=== PATIENT | female | born 1935 | race Caucasian/White ===

== ENCOUNTER 2017-12-20 07:47 | Observation (INO) | payer OTHER ==
--- OUTSIDE RECORDS SUMMARY | 2017-12-20 07:50 | XMS REPORT | Clinical Summary ---
:1935 Author Organization [facility] Address [address] [place] [address] Care Team Providers Name Role Phone Rhett Blackwell MD Primary Care Provider Unavailable Allergies Active Allergy Reactions Severity Noted Date Comments Nitrofurantoin Macrocrystal 02/21/2016 lawrence Current Medications Prescription Sig. Disp. Refills Start Date End Date Status solifenacin Take 1 tablet 90 tablet 0 06/23/2016 Active (VESICARE) 10 MG (10 mg total) tabletIndications: by mouth Overflow incontinence daily. ergocalciferol Take 1 12 capsule 3 03/24/2017 Active (VITAMIN D2) 50,000 capsule unit (50,000 Units capsuleIndications: total) by Vitamin D deficiency mouth once a week. levothyroxine Take 1 tablet 90 tablet 1 03/24/2017 Active (SYNTHROID, LEVOXYL) (100 mcg 100 mcg tablet total) by mouth every morning. loratadine (CLARITIN) Take 1 tablet 90 tablet 1 03/24/2017 Active 10 mg (10 mg total) tabletIndications: by mouth Environmental daily. allergies meloxicam (MOBIC) 15 Take 1 tablet 90 tablet 0 03/24/2017 Active mg tabletIndications: (15 mg total) Arthritis of spine by mouth daily. telmisartan Take 1 tablet 90 tablet 1 03/24/2017 Active (MICARDIS) 80 MG (80 mg total) tabletIndications: by mouth Essential daily. hypertension levoFLOXacin Take 500 mg 0 04/28/2017 Active (LEVAQUIN) 500 MG by mouth tablet daily. minoxidil (LONITEN) Take 2.5 mg Active 2.5 MG tablet by mouth 2 (two) times a day. clopidogrel (PLAVIX) Take 1 tablet 90 tablet 0 10/07/2017 Active 75 mg tablet (75 mg total) by mouth daily. gabapentin Take 1 270 capsule 1 10/27/2017 Active (NEURONTIN) 100 mg capsule (100 capsuleIndications: mg total) by Neuropathy mouth 3 (three) times a day. metoprolol succinate Take 1 tablet 180 tablet 1 10/27/2017 10/28/19 Active XL (TOPROL XL) 50 mg (50 mg total) 19 24 hr tablet by mouth 2 (two) times a day. atorvastatin Take 1 tablet 90 tablet 1 11/11/2017 Active (LIPITOR) 40 MG (40 mg total) tabletIndications: by mouth Hyperlipidemia, daily. unspecified hyperlipidemia type gabapentin Take 1 270 capsule 1 04/16/2016 03/24/20 Discontinued (NEURONTIN) 100 mg capsule (100 17 capsuleIndications: mg total) by Neuropathy mouth 3 (three) times a day. atorvastatin Take 1 tablet 90 tablet 0 06/23/2016 12/23/19 Discontinued (LIPITOR) 40 MG (40 mg total) 17 tablet by mouth daily. ergocalciferol Take 1 12 capsule 0 06/23/2016 12/23/19 Discontinued (VITAMIN D2) 50,000 capsule 17 unit capsule (50,000 Units total) by mouth once a week. levothyroxine Take 1 tablet 90 tablet 1 08/12/2016 03/24/20 Discontinued (SYNTHROID, LEVOXYL) (100 mcg 17 100 mcg total) by tabletIndications: mouth every Hypothyroidism, morning. unspecified omeprazole (PriLOSEC) Take 1 90 capsule 0 11/04/2016 02/03/20 40 MG capsule (40 17 capsuleIndications: mg total) by Gastroesophageal mouth daily reflux disease for 90 days. without esophagitis furosemide (LASIX) 20 Take 1 tablet 90 tablet 0 11/04/2016 02/03/20 mg tabletIndications: (20 mg total) 17 Bilateral swelling of by mouth feet daily as needed (swelling) for up to 90 days. traZODone (DESYREL) Take 1 tablet 90 tablet 0 11/20/2016 02/05/20 Discontinued 100 MG (100 mg 17 tabletIndications: total) by Anxiety associated mouth nightly with depression, for 90 days. Insomnia, unspecified clopidogrel (PLAVIX) Take 1 tablet 90 tablet 0 11/20/2016 02/19/20 75 mg (75 mg total) 17 tabletIndications: by mouth History of CVA with daily for 90 residual deficit days. loratadine (CLARITIN) Take 1 tablet 90 tablet 0 11/20/2016 02/05/20 Discontinued 10 mg (10 mg total) 17 tabletIndications: by mouth Environmental daily. allergies metoprolol succinate Take 1 tablet 90 tablet 0 11/20/2016 12/23/19 Discontinued XL (TOPROL-XL) 50 mg (50 mg total) 17 24 hr by mouth tabletIndications: daily for 90 Essential days. hypertension sertraline (ZOLOFT) Take 1.5 135 tablet 0 11/20/2016 03/24/20 Discontinued 100 MG tablets (150 17 tabletIndications: mg total) by Anxiety associated mouth daily with depression for 90 days. telmisartan Take 1 tablet 90 tablet 1 11/27/2016 03/24/20 Discontinued (MICARDIS) 80 MG (80 mg total) 17 tabletIndications: by mouth Essential daily. hypertension meloxicam (MOBIC) 15 Take 15 mg by 12/23/19 Discontinued mg tablet mouth daily. 17 atorvastatin Take 1 tablet 90 tablet 0 12/22/2016 03/24/20 Discontinued (LIPITOR) 40 MG (40 mg total) 17 tabletIndications: by mouth Hyperlipidemia, daily. unspecified hyperlipidemia type meloxicam (MOBIC) 15 Take 1 tablet 90 tablet 0 12/22/2016 03/24/20 Discontinued mg tabletIndications: (15 mg total) 17 Arthritis of spine by mouth daily. metoprolol succinate Take 1 tablet 180 tablet 0 12/22/2016 03/22/20 XL (TOPROL-XL) 50 mg (50 mg total) 17 24 hr by mouth 2 tabletIndications: (two) times a Essential day for 90 hypertension days. ergocalciferol Take 1 12 capsule 3 12/22/2016 03/24/20 Discontinued (VITAMIN D2) 50,000 capsule 17 unit (50,000 Units capsuleIndications: total) by Vitamin D deficiency mouth once a week. loratadine (CLARITIN) Take 1 tablet 90 tablet 0 02/04/2017 03/24/20 Discontinued 10 mg (10 mg total) 17 tabletIndications: by mouth Environmental daily. allergies traZODone (DESYREL) Take 1 tablet 90 tablet 0 02/04/2017 03/24/20 Discontinued 100 MG (100 mg 17 tabletIndications: total) by Anxiety associated mouth nightly with depression for 90 days. omeprazole (PriLOSEC) Take 1 90 capsule 1 02/22/2017 03/24/20 Discontinued 40 MG capsule (40 17 capsuleIndications: mg total) by Gastroesophageal mouth daily reflux disease for 90 days. without esophagitis atorvastatin Take 1 tablet 90 tablet 1 03/24/2017 11/12/19 Discontinued (LIPITOR) 40 MG (40 mg total) 18 tabletIndications: by mouth Hyperlipidemia, daily. unspecified hyperlipidemia type gabapentin Take 1 270 capsule 1 03/24/2017 10/28/19 Discontinued (NEURONTIN) 100 mg capsule (100 18 capsuleIndications: mg total) by Neuropathy mouth 3 (three) times a day. omeprazole (PriLOSEC) Take 1 90 capsule 1 03/24/2017 06/23/19 40 MG capsule (40 18 capsuleIndications: mg total) by Gastroesophageal mouth daily reflux disease for 90 days. without esophagitis traZODone (DESYREL) Take 1 tablet 90 tablet 1 03/24/2017 06/23/19 100 MG (100 mg 18 tabletIndications: total) by Hypothyroidism, mouth nightly unspecified type for 90 days. sertraline (ZOLOFT) Take 1.5 135 tablet 1 03/24/2017 06/23/19 100 MG tablets (150 18 tabletIndications: mg total) by Anxiety associated mouth daily with depression for 90 days. metoprolol succinate Take 1 tablet 180 tablet 1 04/28/2017 07/28/19 XL (TOPROL-XL) 50 mg (50 mg total) 18 24 hr tablet by mouth 2 (two) times a day for 90 days. clopidogrel (PLAVIX) Take 75 mg by 10/08/19 Discontinued 75 mg tablet mouth daily. 18 acetaminophen-codeine Take 1-2 40 tablet 0 05/19/2017 05/21/19 Discontinued (TYLENOL WITH CODEINE tablets by 18 #3) 300-30 mg per mouth every 4 tablet (four) hours as needed for moderate pain for up to 30 days. Take with food acetaminophen-codeine Take 1-2 40 tablet 0 05/21/2017 06/01/19 Discontinued (TYLENOL WITH CODEINE tablets by 18 #3) 300-30 mg per mouth every 4 tablet (four) hours as needed for moderate pain for up to 30 days. Take with food Active Problems Problem Noted Date Physical deconditioning 11/25/2017 Right shoulder pain 06/15/2017 Urinary incontinence 02/04/2017 History of ischemic left MCA stroke 01/13/2017 Sensory ataxia 10/13/2016 Sialorrhea 09/22/2016 DJD (degenerative joint disease), multiple sites 08/12/2016 Lactose intolerance 04/16/2016 Memory problem 04/15/2016 Gout, arthropathy 04/15/2016 EKG abnormalities 04/15/2016 Overview: 10/29 SR, Left axis dev w Left ant. Fasc. Block 02/02 ECHO : mild changes, otherwise wnl Essential hypertension 02/21/2016 HLD (hyperlipidemia) 02/21/2016 Gastroesophageal reflux disease without esophagitis 02/21/2016 Neuropathy 02/21/2016 Vitamin D deficiency 02/21/2016 Hypothyroidism 02/21/2016 Atopic rhinitis 02/21/2016 Anxiety associated with depression 02/21/2016 Insomnia 02/21/2016 Overflow incontinence 02/21/2016 Rectal incontinence 02/21/2016 History of CVA with residual deficit 02/21/2016 CTS (carpal tunnel syndrome) 02/21/2016 Gait instability 02/21/2016 Arthritis of spine 02/21/2016 Overview: S/p back surgery FU w ortho spine Resolved Problems Problem Noted Date Resolved Date Dislocation of proximal interphalangeal joint of left little 04/06/201711/25 finger Closed nondisplaced fracture of phalanx of left little 04/06/2017 11/25/2017 finger Transient cerebral ischemia 01/13/2017 11/25/2017 Encounters Date Type Specialty Care Team Description 11/25/2017 Office Visit Family Medicine [place] Physical deconditioning ( Primary Dx); MD Rhett History of CVA with residual deficit; Gait instability; Sensory ataxia; Neuropathy; Osteoarthritis of multiple joints, unspecified osteoarthritis type; Essential hypertension; Hypothyroidism, unspecified type; Hyperlipidemia, unspecified hyperlipidemia type; Anxiety associated with depression; Insomnia, unspecified type 11/11/2017 Refill Internal Medicine [place] HyperlipidemiaRhett MD unspecified hyperlipidemia type 10/27/2017 Refill Family Medicine Dinora Rangel 10/25/2017 Office Visit Family J Luis Blackwell Essential hypertension ( Primary Dx); MD Rhett History of ischemic left MCA stroke; History of CVA with residual deficit; Gait instability; Memory problem; Hypothyroidism, unspecified type; Osteoarthritis of multiple joints, unspecified osteoarthritis type; Anxiety associated with depression; Insomnia, unspecified type; Hematoma of left flank, initial encounter; Traumatic hematoma of left elbow, initial encounter 10/07/2017 Refill Family Medicine Rhett Blackwell MD 10/06/2017 Telephone Family Medicine Tim Lundy LVN 07/28/2017 Telephone Family Medicine Rhett Blackwell MD 07/06/2017 Office Visit Layla Mix nondisplaced Landen Cruz MD fracture of phalanx of left little finger with routine healing, unspecified phalanx, subsequent encounter (Primary Dx) 06/22/2017 Lab Lab [place], Preop examination; MD Rhett Abnormal finding in urine ; Sequelae of protein-calorie malnutrition ; Essential hypertension; Hyperlipidemia, unspecified hyperlipidemia type; Hypothyroidism, unspecified type 06/22/2017 Office Visit Family J Luis Blackwell, Essential hypertension ( Primary Dx); MD Rhett History of ischemic left MCA stroke; Hypothyroidism, unspecified type; Neuropathy; Hyperlipidemia, unspecified hyperlipidemia type; Arthritis of spine; Preop examination; Anxiety associated with depression; Insomnia, unspecified type; Memory problem; Abnormal finding in urine ; Sequelae of protein-calorie malnutrition 06/15/2017 Office Visit Layla Mix Closed nondisplaced fracture of phalanx of left little finger, unspecified phalanx, initial encounter ( Primary Dx); Landen Cruz MD Acute pain of right shoulder; Dislocation of proximal interphalangeal joint of left little finger, subsequent encounter; Aftercare following surgery 06/01/2017 Office Visit Layla Mix Aftercare following surgery ( Primary Dx); Landen Cruz MD Closed nondisplaced fracture of phalanx of left little finger, unspecified phalanx, initial encounter; Dislocation of proximal interphalangeal joint of left little finger, subsequent encounter 05/25/2017 Telephone Landen Appiah MA 05/21/2017 Hospital Encounter Layla Mix MD 05/21/2017 Orders Only Orthopedic Landen Cadena MA 05/21/2017 Procedure Pass Orthopedic Surgery 05/21/2017 Surgery Layla Mix ORIF SMALL FINGER Surgery MD Nancy 05/19/2017 Pre-Admit Testing Pre-Admission Layla Parada Preop testing ( Primary Appointment Testing EMD Irwin Dx) 05/19/2017 Anesthesia Event Orthopedic Karmen, Surgery Jamila, GRAPE PICKER 05/19/2017 Orders Only Orthopedic Tammi, Surgery Rebeca, MIREYA 05/18/2017 Office Visit Orthopedic [place], Dislocation of proximal interphalangeal joint of left little finger, initial encounter (Primary Dx); Surgery MD Rhett Closed nondisplaced fracture of phalanx of left little finger, unspecified phalanx, initial encounter Layla Parada MD 05/06/2017 Orders Only Family Medicine [place], Closed nondisplaced MD Rhett fracture of phalanx of left little finger, unspecified phalanx, initial encounter (Primary Dx) 05/05/2017 Telephone Family Rhett Medina MD 05/04/2017 Office Visit Family Medicine [place], Transient cerebral ischemia, unspecified type (Primary Dx); MD Rhett History of ischemic left MCA stroke; Essential hypertension; Urinary tract infection without hematuria, site unspecified; Injury of finger of left hand, initial encounter 04/28/2017 Refill Family Medicine Tila Gaytan LVN 04/23/2017 Telephone Family Rhett Medina MD 04/22/2017 Telephone Family Medicine Rhett Blackwell MD 04/14/2017 Documentation Neurology Vaishali Astudillo No Show Dionicio Castellanos DO 03/24/2017 Office Visit Family J Luis Blackwell, Essential hypertension ( Primary Dx); MD Rhett Hyperlipidemia, unspecified hyperlipidemia type; Hypothyroidism, unspecified type; History of ischemic left MCA stroke; History of CVA with residual deficit; Gait instability; Osteoarthritis of multiple joints, unspecified osteoarthritis type; Arthritis of spine; Neuropathy; Gastroesophageal reflux disease without esophagitis; Anxiety associated with depression; Insomnia, unspecified type 03/16/2017 Telephone Internal Medicine Sydnee Corley, RN 02/25/2017 Procedure visit Neurology Vaishali Astudillo Idiopathic peripheral neuropathy (Primary Dx); Dionicio Castellanos DO Spinal stenosis of lumbar region without neurogenic claudication; Graham, Phi, Weakness of both lower extremities 02/22/2017 Telephone Family Medicine [place] Gastroesophageal reflux MD Rhett disease without esophagitis (Primary Dx) 02/08/2017 Orders Only Family Medicine Provider, Oseas, MD 02/04/2017 Office Visit Neurology Vaishali Astudillo Weakness of both lower extremities (Primary Dx); Sin Jasmin, DO Gait instability; Transient cerebral ischemia, unspecified type; History of ischemic left MCA stroke; Essential hypertension; Sensory ataxia; Urinary incontinence, unspecified type 02/04/2017 Refill [facility] Medicine [place], Environmental allergies; MD Rhett Anxiety associated with depression 02/03/2017 Telephone Neurology BaudilioVaishali linda Sin Jasmin, DO 02/02/2017 Telephone Neurology Baudilio, Vaishali Sin Jasmin, DO 01/20/2017 Telephone [facility] Medicine Rhett Blackwell MD 01/19/2017 Telephone Neurology Baudilio, Vaishali Sin Jasmin, DO 01/18/2017 Ancillary Orders Neurology Vaishali Astudillo Transient cerebral Sin Jasmin, DO ischemia, unspecified type 01/14/2017 Telephone [facility] Medicine Rhett Blackwell MD 01/13/2017 Office Visit Neurology Vaishali Astudillo Transient cerebral ischemia , unspecified type (Primary Dx); Sin Jasmin, DO Weakness of both lower extremities; Urinary incontinence, unspecified type; Sensory ataxia; Hyperlipidemia, unspecified hyperlipidemia type; Essential hypertension; History of ischemic left MCA stroke 01/13/2017 Procedure Pass Radiology 01/13/2017 Procedure Pass Radiology 12/23/2016 Telephone [facility] Rhett Medina MD 12/22/2016 Office Visit [facility] J Luis Blackwell, Essential hypertension ( Primary Dx); MD Rhett History of CVA with residual deficit; Hyperlipidemia, unspecified hyperlipidemia type; Sensory ataxia; Neuropathy; Arthritis of spine; Hypothyroidism, unspecified; Vitamin D deficiency; Anxiety associated with depression; Insomnia, unspecified after 12/19/2016 Immunizations Name Dates Previously Given Next Due FLUZONE HIGH-DOSE PF 03/24/2017, 02/21/2016 Pneumococcal Conjugate 13-Valent 08/06/2016 Pneumococcal, Unspecified 08/21/2004 Family History Medical History Relation Name Comments Aneurysm Brother COPD Brother Heart disease Father Hypertension Mother Stroke Mother Relation Name Status Comments Brother Father Mother Sister Alive x2 carotid blockage Social History Tobacco Use Types Packs/Day Years Used Date Former Smoker Cigarettes 0.5 25 Quit: 1991 Smokeless Tobacco: Never Used Comments: 1991 quit smoking Alcohol Use Drinks/Week oz/Week Comments Yes rare Sex Assigned at Date Recorded Not on file Last Filed Vital Signs Vital Sign Reading Time Taken Blood Pressure 196/65 11/25/2017 1:07 PM CDT Pulse 50 11/25/2017 1:07 PM CDT Temperature 36.9 C (98.5 F) 11/25/2017 1:07 PM CDT Respiratory Rate 18 11/25/2017 1:07 PM CDT Oxygen Saturation 98% 11/25/2017 1:07 PM CDT Inhaled Oxygen Concentration - - Weight 68.5 kg (151 lb) 11/25/2017 1:07 PM CDT Height 172.7 cm (5' 8") 11/25/2017 1:07 PM CDT Body Mass Index 22.96 11/25/2017 1:07 PM CDT Plan of Treatment Date Type Specialty Care Team Description 01/24/2018 Office Visit Family Medicine Rhett Blackwell MD [address] [address] [place] [address] Health Maintenance Due Date Last Done Comments SHINGRIX VACCINE (#1) 06/25/1985 INFLUENZA VACCINE 11/17/2017 03/24/2017, 02/21/2016 PNEUMOCOCCAL POLYSACCHARIDE VACCINE AGE 65 Completed 08/21/2004 AND OVER PNEUMOCOCCAL-13 Completed 08/06/2016 DXA SCAN Excluded 01/21/2017 ZOSTER VACCINE Excluded Implants Implanted Type Area Crisis Intervention Specialist Device Expiration Model / Identifier Date Serial / Lot Wire K Dual Trcr Pt [id number] Ns - [id number] Temporary Left: MICRO AIRE 1600 [id number] / Implanted: Qty: 2 on 05/21/2017 by Layla Parada MD Fixation Pin Hand SURGICAL / or Wire INSTRUMENT Wire K Dual Trcr Pt [id number] Ns - [id number] Temporary Left: MICRO AIRE 1600 [id number] / Implanted: Qty: 2 on 05/21/2017 by Layla Parada MD Fixation Pin Hand SURGICAL / or Wire INSTRUMENT Procedures Procedure Name Priority Date/Time Associated Diagnosis Comments XR HAND 3+ VW LEFT Routine 07/06/2017 1:14 Closed nondisplaced Results for this PM CDT fracture of phalanx of procedure are in left little finger the results with routine healing, section. unspecified phalanx, subsequent encounter T4, FREE Routine 06/22/2017 2:01 Hypothyroidism, Results for this PM STEEL MELTER unspecified type procedure are in the results section. THYROID STIMULATING Routine 06/22/2017 2:01 Hypothyroidism, Results for this HORMONE PM STEEL MELTER unspecified type procedure are in the results section. MICROALBUMIN / Routine 06/22/2017 2:01 Essential hypertension Results for this CREATININE URINE PM STEEL MELTER procedure are in RATIO the results section. LIPID PANEL Routine 06/22/2017 2:01 Essential hypertension Results for this PM STEEL MELTER Hyperlipidemia, procedure are in unspecified the results hyperlipidemia type section. PROTHROMBIN TIME WITH Routine 06/22/2017 2:01 Sequelae of Results for this INR PM STEEL MELTER protein-calorie procedure are in malnutrition the results Preop examination section. URINALYSIS, AUTOMATED Routine 06/22/2017 2:01 Preop examination Results for this WITH MICROSCOPY PM STEEL MELTER procedure are in the results section. COMPREHENSIVE Routine 06/22/2017 2:01 Preop examination Results for this METABOLIC PANEL PM STEEL MELTER procedure are in the results section. CBC WITH PLATELET AND Routine 06/22/2017 2:01 Preop examination Results for this DIFFERENTIAL PM STEEL MELTER procedure are in the results section. URINE CULTURE Routine 06/22/2017 2:01 Abnormal finding in Results for this PM STEEL MELTER urine procedure are in Preop examination the results section. XR SHOULDER 2+ VW Routine 06/15/2017 2:34 Closed nondisplaced Results for this RIGHT PM STEEL MELTER fracture of phalanx of procedure are in left little finger, the results unspecified phalanx, section. initial encounter Acute pain of right shoulder XR HAND 3+ VW LEFT Routine 06/15/2017 2:34 Closed nondisplaced Results for this PM STEEL MELTER fracture of phalanx of procedure are in left little finger, the results unspecified phalanx, section. initial encounter Acute pain of right shoulder SC CLOSE RX PROX/MID Routine 06/15/2017 2:10 Acute pain of right Results for this FING SHFT FX PM STEEL MELTER shoulder procedure are in the results section. XR HAND 3+ VW LEFT Routine 06/01/2017 1:54 Closed nondisplaced Results for this PM STEEL MELTER fracture of phalanx of procedure are in left little finger, the results unspecified phalanx, section. initial encounter SC CLOSE RX PROX/MID Routine 06/01/2017 1:50 Closed nondisplaced Results for this FING SHFT FX PM STEEL MELTER fracture of phalanx of procedure are in left little finger, the results unspecified phalanx, section. initial encounter Aftercare following surgery Dislocation of proximal interphalangeal joint of left little finger, subsequent encounter SC APPLY FOREARM Routine 06/01/2017 1:50 Closed nondisplaced Results for this SPLINT,STATIC PM STEEL MELTER fracture of phalanx of procedure are in left little finger, the results unspecified phalanx, section. initial encounter Aftercare following surgery Dislocation of proximal interphalangeal joint of left little finger, subsequent encounter ORIF, FINGER 05/21/2017 9:30 Dislocation of AM STEEL MELTER proximal interphalangeal joint of left little finger, initial encounter ECG PRE/POST OP Routine 05/19/2017 1:53 Preop testing Results for this PM STEEL MELTER procedure are in the results section. XR HAND 3+ VW LEFT Routine 05/18/2017 2:12 Closed nondisplaced Results for this PM STEEL MELTER fracture of phalanx of procedure are in left little finger, the results unspecified phalanx, section. initial encounter XR HAND 3+ VW LEFT Routine 05/04/2017 12:36 Injury of finger of Results for this PM STEEL MELTER left hand, initial procedure are in encounter the results section. NOTIFY HOME HEALTH Routine 02/08/2017 12:00 AM CDT BONE DENSITY Routine 01/21/2017 1:20 Disorder of bone and Results for this PM CDT cartilage procedure are in the results section. US CAROTID DUPLEX Routine 01/21/2017 1:15 Transient cerebral Results for this BILATERAL PM CDT ischemia, unspecified procedure are in type the results section. MRI LUMBAR SPINE WO Routine 01/21/2017 12:47 Weakness of both lower Results for this CONTRAST PM CDT extremities procedure are in Urinary incontinence, the results unspecified type section. MRI THORACIC SPINE WO Routine 01/21/2017 12:47 Weakness of both lower Results for this CONTRAST PM CDT extremities procedure are in Urinary incontinence, the results unspecified type section. after 12/19/2016 Results XR Hand 3+ Vw Left (07/06/2017 1:14 PM)Only the most recent of5 resultswithin the time period is included. Narrative Performed At [facility], lateral, oblique x-rays of the left hand are done.These x-rays [facility] demonstrate severe arthritis of the left small finger proximal interphalangeal joint.There is minimal subluxation.There is moderate to advanced arthritis at the first carpometacarpal joint.There is also calcification noted at the TFCC.No internal fixation remains. Performing Organization Address City/[facility] Phone Number LEEANN HINTON [address] [place] [address] Microalbumin / creatinine urine ratio (06/22/2017 2:01 PM) Creatinine, urine, 106 20 - 320 mg/dL [facility] random [place] Microalbumin, urine 1.5 See Note: mg/dL [facility] Comment: [facility] Reference Range: Reference Range Not established Microalbumin/creatini 14 <30 mcg/mg creat [facility] ne ratio Comment: [facility] The ADA defines abnormalities in albumin excretion as follows: Category Result (mcg/mg creatinine) Normal<30 Microalbuminuria 30-299 Clinical albuminuria > KA=456 The ADA recommends that at least two of three specimens collected within a 3-6 month period be abnormal before considering a patient to be within a diagnostic category. Specimen Blood Resulting Agency Comment Performing Organization Information: Site ID: [id number] Name[facility] Address: [address] [place] [id number] Director: Yeny Huff MD Performing Organization Address City/[facility] Phone Number [email or web address] [address] [address] Urinalysis, automated with microscopy (06/22/2017 2:01 PM) Color, UA YELLOW YELLOW [facility] Appearance CLEAR CLEAR [facility] Specific gravity, urine 1.015 1.001 - 1.035 [facility] pH, urine 6.5 5.0 - 8.0 [facility] Glucose, urine NEGATIVE NEGATIVE [facility] Bilirubin, UA NEGATIVE NEGATIVE [facility] Ketones, UA NEGATIVE NEGATIVE [facility] Occult blood, urine NEGATIVE NEGATIVE [facility] Protein, UA NEGATIVE NEGATIVE [facility] Nitrite, UA NEGATIVE NEGATIVE [facility] Leukocyte esterase, UA TRACE (A) NEGATIVE [facility] WBC, UA 0-5 < OR=5 /HPF [facility] RBC, UA 0-2 < OR=2 /HPF [facility] Squamous epithelial cells, UA 0-5 < OR=5 /HPF [facility] Bacteria, UA NONE SEEN NONE SEEN /HPF [facility] Hyaline casts, UA NONE SEEN NONE SEEN /LPF [employer] [facility] Specimen Blood Resulting Agency Comment Performing Organization Information: Site ID: [id number] Name: [facility] Address: [address] [place] [phone] Director: Yeny Huff MD Performing Organization Address [facility] Phone Number [facility] [address] [address] Prothrombin time with INR (06/22/2017 2:01 PM) INR 1.0 [employer] [facility] Comment: Reference Range 0.9-1.1 Moderate-intensity Warfarin Therapy 2.0-3.0 Higher-intensity Warfarin Therapy 3.0-4.0 Prothrombin time 10.9 9.0 - 11.5 sec [employer] [facility] Comment: For more information on this test, go to: http://education.VISUAL NACERT/faq/NXO299 Specimen Blood Resulting Agency Comment Performing Organization Information: Site ID: [id number] Name: [facility] Address: [address] [place] [phone] Director: Yeny Huff MD Performing Organization Address [facility] Phone Number [facility] [address] [address] CBC with platelet and differential (06/22/2017 2:01 PM) WBC 6.0 3.8 - 10.8 Thousand/uL [employer] [facility] RBC 4.65 3.80 - 5.10 Million/uL [employer] [facility] HGB 12.3 11.7 - 15.5 g/dL [employer] [facility] HCT 37.9 35.0 - 45.0 % [employer] [facility] MCV 81.5 80.0 - 100.0 fL [employer] [facility] MCH 26.5 (L) 27.0 - 33.0 pg [employer] [facility] MCHC 32.5 32.0 - 36.0 g/dL [employer] [facility] RDW 13.3 11.0 - 15.0 % [employer] [facility] Platelet count 149 140 - 400 Thousand/uL [employer] [facility] MPV 11.0 7.5 - 12.5 fL [employer] [facility] Neutrophils, absolute 4,158 1,500 - 7,800 cells/uL [employer] [facility] Lymphocytes, absolute 1,332 850 - 3,900 cells/uL [employer] [facility] Monocytes, absolute 372 200 - 950 cells/uL [employer] [facility] Eosinophils, absolute 108 15 - 500 cells/uL [employer] [facility] Basophils, absolute 30 0 - 200 cells/uL [employer] [facility] Neutrophils 69.3 % [facility] Lymphocytes 22.2 % [facility] Monocytes 6.2 % [facility] Eosinophils 1.8 % [employer] [facility] Basophils + RC 0.5 % [employer] [facility] Specimen Blood Resulting Agency Comment Performing Organization Information: Site ID: [id number] Name: [facility] Address: [address] [place] [address] Director: Yeny Huff MD Performing Organization Address [facility] Hospitalcode [place] [address] Urine culture (06/22/2017 2:01 PM) Urine culture SEE NOTE [facility] Comment: CULTURE, URINE, ROUTINE MICRO NUMBER:[id number] TEST STATUS: FINAL SPECIMEN SOURCE: URINE SPECIMEN QUALITY:ADEQUATE RESULT:Three or more organisms present, each greater than 10,000 cu/mL. May represent normal heath contamination from external genitalia. No further testing is required. Specimen Blood Resulting Agency Comment Performing Organization Information: Site ID: [facility] Name: [facility] Address: [address] [place] [address] Director: Yeny Huff MD Performing Organization Address [facility] Hospital[facility] Phone Number [facility] [place] [address] Thyroid stimulating hormone (06/22/2017 2:01 PM) TSH 2.18 0.40 - 4.50 mIU/L [employer] [facility] Specimen Blood Resulting Agency Comment Performing Organization Information: Site ID: A Name: [facility] Address: [address] [place] [phone] Director: Yeny Huff MD Performing Organization Address [facility] Hospitalcode Phone Number [facility] [place] [address] T4, free (06/22/2017 2:01 PM) T4, free 1.4 0.8 - 1.8 ng/dL [employer] [facility] Specimen Blood Resulting Agency Comment Performing Organization Information: Site ID: [facility] Name: [facility] Address: [address] [place] [phone] Director: Yeny Huff MD Performing Organization Address City/[facility] Phone Number [employer] [place] [phone] Lipid panel (06/22/2017 2:01 PM) Cholesterol, total 156 <200 mg/dL [facility] HDL cholesterol 72 >50 mg/dL [facility] Triglycerides 247 (H) <150 mg/dL [facility] LDL cholesterol 53 mg/dL (calc) [facility] calculated Comment: [facility] Reference range: <100 Desirable range <100 mg/dL for patients with CHD or diabetes and <70 mg/dL for diabetic patients with known heart disease. LDL-C is now calculated using the [place] calculation, which is a validated novel method providing better accuracy than the Friedewald equation in the estimation of LDL-C. Tristen SS et al. SHANE. 2013;310(19): 0914-7707 (http://education.Picklify/faq/MJS758) Cholesterol/HDL ratio 2.2 <5.0 (calc) [facility] Non-HDL cholesterol 84 <130 mg/dL [facility] Comment: (calc) [facility] For patients with diabetes plus 1 major ASCVD risk factor, treating to a non-HDL-C goal of <100 mg/dL (LDL-C of <70 mg/dL) is considered a therapeutic option. Specimen Blood Resulting Agency Comment Performing Organization Information: Site ID: RGA Name: [facility] Address: [address] [place] [phone] Director: Yeny Huff MD Performing Organization Address City/State/Zipcode Phone Number [employer] [place] [phone] Comprehensive metabolic panel (06/22/2017 2:01 PM) Glucose 107 (H) 65 - 99 mg/dL [facility] Comment: [facility] Fasting reference interval For someone without known diabetes, a glucose value between 100 and 125 mg/dL is consistent with prediabetes and should be confirmed with a follow-up test. BUN, whole blood 19 7 - 25 mg/dL [facility] Creatinine 0.85 0.60 - 0.88 [employer] Comment: mg/dL [facility] For patients >49 years of age, the reference limit for Creatinine is approximately 13% higher for people identified as -Kittitian. EGFR Non-Afr. Kittitian 64 > OR=60 [facility] mL/min/1.73m2 [facility] EGFR 74 > OR=60 [facility] mL/min/1.73m2 [facility] BUN/creatinine ratio NOT APPLICABLE 6 - 22 (calc) [employer] [facility] Sodium 145 135 - 146 mmol/L [facility] Potassium 4.3 3.5 - 5.3 mmol/L [facility] Chloride 107 98 - 110 mmol/L [employer] [facility] CO2 32 (H) 20 - 31 mmol/L [facility] Calcium 9.6 8.6 - 10.4 mg/dL [facility] Protein 6.5 6.1 - 8.1 g/dL [employer] [facility] Albumin, S 4.3 3.6 - 5.1 g/dL [employer] [facility] Globulin, total 2.2 1.9 - 3.7 g/dL [employer] (calc) [facility] Albumin/globulin ratio 2.0 1.0 - 2.5 (calc) [employer] [facility] Total bilirubin 0.5 0.2 - 1.2 mg/dL [facility] [employer] [facility] Alkaline phosphatase 70 33 - 130 U/L [employer] [facility] AST 20 10 - 35 U/L [facility] ALT 15 6 - 29 U/L [employer] [facility] Specimen Blood Resulting Agency Comment Performing Organization Information: Site ID: RGA Name: [facility] Address: [address] [place] [phone] Director: Yeny Huff MD Performing Organization Address City/[facility] Phone Number 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 Performing Organization Address City/State/Zipcode Phone Number [facility] [address] [place] [address] ORTHOPEDIC INJURY TREATMENT (06/15/2017 2:10 PM) Narrative Performed At Layla Parada MD 06/15/20173:20 PM Orthopedic Injury Treatment Date/Time: 06/15/2017 3:04 PM Performed by: LAYLA PARADA Authorized by: LAYLA PARADA Consent given by: patient Site marked: site marked Timeout: Immediately prior to procedure a time out was called to verify the correct patient, procedure, equipment, residential direct support professional and site/side marked as required Injury Location details: left little finger Dislocation type: proximal interphalangeal finger dislocation Fracture type: middle phalanx fracture Pre-procedure assessment Distal perfusion: normal Distal sensation: normal Range of motion: reduced Procedure Manipulation performed? no manipulation performed Anesthetics: local anesthesia not used Immobilization: splint Splint/Brace type: static finger Supplies used: aluminum splint Post-procedure assessment Distal perfusion: normal Distal sensation: normal Range of motion: unchanged Patient tolerance: patient tolerated the procedure well with no immediate complications ORTHOPEDIC INJURY TREATMENT (06/01/2017 1:50 PM) Narrative Performed At Layla Parada MD 06/01/20172:15 PM Orthopedic Injury Treatment Date/Time: 06/01/2017 2:08 PM Performed by: LAYLA PARADA Authorized by: LAYLA PARADA Consent given by: patient Site marked: site marked Injury Location details: left little finger Dislocation type: proximal interphalangeal finger dislocation Fracture type: middle phalanx fracture Pre-procedure assessment Distal perfusion: normal Distal sensation: normal Range of motion: reduced Procedure Manipulation performed? no manipulation performed Anesthetics: local anesthesia not used Immobilization: splint Splint/Brace type: ulnar gutter Supplies used: cotton padding and Ortho-Glass Post-procedure assessment Distal perfusion: normal Distal sensation: normal Patient tolerance: patient tolerated the procedure well with no immediate complications ECG Pre/Post Op (05/19/2017 1:53 PM) Ventricular rate 47 [facility] Atrial rate 47 [facility] SC interval 156 [facility] QRSD interval 106 [facility] QT interval 500 [facility] QTC interval 442 [facility] P axis 1 82 [facility] QRS axis 1 -46 [facility] T wave axis 55 [facility] EKG impression Marked sinus bradycardia-Pulmonary disease [facility] MUSE pattern-Left anterior fascicular block-Abnormal ECG-No previous ECGs available- Performing Organization Address City/State/Zipcode Phone Number [facility] MUSE [address] [place] [address] [facility] (02/08/2017) Narrative Performed At Bone Density (01/21/2017 1:20 PM) Narrative Performed At Procedure: BONE DENSITY [facility] REFERRING PHYSICIAN: RHETT BLACKWELL HISTORY: M89.9 Disorder of boneunspecified, M94.9 Disorder of cartilageunspecified, osteopenia COMPARISON: None TECHNIQUE: Dual-energy x-ray absorptiometrywas performed of the right distal forearm and both hips. FINDINGS: Analysis of the right distal radial metadiaphysis demonstrates a T score -0.6, BMD 0.442 g/cm2 and Z score of 2.3. Analysis of the left femoral neck demonstrates a T score -0.5, BMD 0.962 g/cm2 and Z score of 1.6. Analysis of the right femoral neck demonstrates a T score -0.5, BMD 0.966g/cm2 and Z score of 1.6. IMPRESSION: Normal bone density exam. [id number] Procedure Note Interface, Radiology Results Incoming - 01/21/2017 2:15 PM CDT Procedure: BONE DENSITY REFERRING PHYSICIAN: RHETT BLACKWELL HISTORY: M89.9 Disorder of bone unspecified, M94.9 Disorder of cartilage unspecified, osteopenia COMPARISON: None TECHNIQUE: Dual-energy x-ray absorptiometry was performed of the right distal forearm and both hips. FINDINGS: Analysis of the right distal radial metadiaphysis demonstrates a T score -0.6, BMD 0.442 g/cm2 and Z score of 2.3. Analysis of the left femoral neck demonstrates a T score -0.5, BMD 0.962 g/cm2 and Z score of 1.6. Analysis of the right femoral neck demonstrates a T score -0.5, BMD 0.966g/cm2 and Z score of 1.6. IMPRESSION: Normal bone density exam. [id number] Performing Organization Address City/State/Zipcode Phone Number [facility] [address] [place] [address] Pv carotid duplex (01/21/2017 1:15 PM) Narrative Performed At Examination: US CAROTID DUPLEX BILATERAL [facility] CLINICAL HISTORY: G45.9 Transient cerebral ischemic attackunspecified, increased left arm weaknesstia TECHNIQUE: Examination includes full duplex Doppler scan (real-time B mode grayscale, Doppler spectral analysis, Doppler color flow imaging) of the common carotid, internal carotid, external carotid, and vertebral arteries. Velocity parameters are based upon studies using distal internal carotid artery diameter as a denominator for stenosis calculation. COMPARISON:None. FINDINGS: Right side: A focal area of moderate stenosis in the right VALENTINO approximates 50%.Mild plaque is present within the right carotid bulb and proximal ICA. Peak systolic velocities are as follows: ICA 161 cm/sec, CCA 72 cm/sec, IC:CC Ratio 2.2. Antegrade flow is demonstrated in the right vertebral artery. Left side:There is no hemodynamically significant extracranial carotid arterial stenosis on the left according to grayscale or color flow imaging.. Minimal plaque is present within the left carotid bulb and proximal ICA. Peak systolic velocities are as follows: ICA 112 cm/sec, CCA 100 cm/sec, IC:CC Ratio 1.1 . Antegrade flow is demonstrated in the left vertebral artery. IMPRESSION: Approximately 50% stenosis of the right proximal ICA by grayscale and color flow imaging is supported by mildly elevated velocities and ratio. Please see above. [facility]-[id number] Procedure Note Hm Interface, Radiology Results Incoming - 01/21/2017 1:36 PM CDT Examination: US CAROTID DUPLEX BILATERAL CLINICAL HISTORY: G45.9 Transient cerebral ischemic attack unspecified, increased left arm weakness tia TECHNIQUE: Examination includes full duplex Doppler scan (real-time B mode grayscale, Doppler spectral analysis, Doppler color flow imaging) of the common carotid, internal carotid, external carotid, and vertebral arteries. Velocity parameters are based upon studies using distal internal carotid artery diameter as a denominator for stenosis calculation. COMPARISON:None. FINDINGS: Right side: A focal area of moderate stenosis in the right VALENTINO approximates 50% . Mild plaque is present within the right carotid bulb and proximal ICA. Peak systolic velocities are as follows: ICA 161 cm/sec, CCA 72 cm/sec, IC:CC Ratio 2.2 . Antegrade flow is demonstrated in the right vertebral artery. Left side:There is no hemodynamically significant extracranial carotid arterial stenosis on the left according to grayscale or color flow imaging.. Minimal plaque is present within the left carotid bulb and proximal ICA. Peak systolic velocities are as follows: ICA 112 cm/sec, CCA 100 cm/sec, IC:CC Ratio 1.1 . Antegrade flow is demonstrated in the left vertebral artery. IMPRESSION: Approximately 50% stenosis of the right proximal ICA by grayscale and color flow imaging is supported by mildly elevated velocities and ratio. Please see above. [facility]-[id number] Performing Organization Address City/State/Zipcode Phone Number [facility] [address] [place] [address] MRI Lumbar Spine Wo Contrast (01/21/2017 12:47 PM) Narrative Performed At [facility] EXAM:MRI LUMBAR SPINE WO CONTRAST COMPARISON: None. CLINICAL HISTORY: R29.898 Other symptoms and signs involving the musculoskeletal system, R32 Unspecified urinary incontinence, weakness in legs and urinary incontinence TECHNIQUE: Multiplanar multisequence examination was performedWithout contrast. FINDINGS: Sagittal images demonstrate postoperative changes related to posterior element instrumentation and fusion from L3 to L5 with underlying laminectomy. The metal hardware results in significant image quality degradation. L5-S1: There is mild annular bulging and spondylosis without significant stenosis. L3-L5: There are postoperative changes. There is significant metallic image artifact. There is no gross central canal stenosis. There is a small fluid collection dorsal to the thecal sac at L5 without mass effect. L2-3: There is degenerative annular bulging and spondylosis with moderately severe multifactorial spinal canal stenosis. There is a broad-based extra foraminal bulge/protrusion with severe impingement on the right neuroforamen and the right L2 nerve root. L1-2: There is mild annular bulging and spondylosis without significant stenosis. L2-3: There is asymmetric annular bulging and spondylosis worse on the right. There is multifactorial moderately severe spinal canal stenosis due to disc bulging and facet hypertrophy. There is severe right foraminal stenosis with probable impingement on the emanating right L2 nerve root. L1-2: There is mild annular bulging and spondylosis with very IMPRESSION: Postoperative changes at L3-L5 with hardware that degrades the image quality. Degenerative annular bulging and spondylosis at L2-3 with moderate to severe multifocal central spinal canal stenosis and severe right foraminal stenosis with probable significant impingement on the right L2 nerve root. Mild sclerotic changes at L1-2 and L5-S1 without significant stenosis. No gross compression of the thecal sac from L3 to L5. The foramina cannot be evaluated because of the metal artifact. [facility]-[id number] Procedure Note Interface, Radiology Results Incoming - 01/21/2017 1:10 PM CDT EXAM: MRI LUMBAR SPINE WO CONTRAST COMPARISON: None. CLINICAL HISTORY: R29.898 Other symptoms and signs involving the musculoskeletal system, R32 Unspecified urinary incontinence, weakness in legs and urinary incontinence TECHNIQUE: Multiplanar multisequence examination was performed Without contrast. FINDINGS: Sagittal images demonstrate postoperative changes related to posterior element instrumentation and fusion from L3 to L5 with underlying laminectomy. The metal hardware results in significant image quality degradation. L5-S1: There is mild annular bulging and spondylosis without significant stenosis. L3-L5: There are postoperative changes. There is significant metallic image artifact. There is no gross central canal stenosis. There is a small fluid collection dorsal to the thecal sac at L5 without mass effect. L2-3: There is degenerative annular bulging and spondylosis with moderately severe multifactorial spinal canal stenosis. There is a broad-based extra foraminal bulge/protrusion with severe impingement on the right neuroforamen and the right L2 nerve root. L1-2: There is mild annular bulging and spondylosis without significant stenosis. L2-3: There is asymmetric annular bulging and spondylosis worse on the right. There is multifactorial moderately severe spinal canal stenosis due to disc bulging and facet hypertrophy. There is severe right foraminal stenosis with probable impingement on the emanating right L2 nerve root. L1-2: There is mild annular bulging and spondylosis with very IMPRESSION: Postoperative changes at L3-L5 with hardware that degrades the image quality. Degenerative annular bulging and spondylosis at L2-3 with moderate to severe multifocal central spinal canal stenosis and severe right foraminal stenosis with probable significant impingement on the right L2 nerve root. Mild sclerotic changes at L1-2 and L5-S1 without significant stenosis. No gross compression of the thecal sac from L3 to L5. The foramina cannot be evaluated because of the metal artifact. [facility]-[id number] Performing Organization Address City/State/Zipcode Phone Number [facility] [address] [place] [address] MRI Thoracic Spine Wo Contrast (01/21/2017 12:47 PM) Narrative Performed At [facility] EXAM:MRI THORACIC SPINE WO CONTRAST COMPARISON: None. CLINICAL HISTORY: R29.898 Other symptoms and signs involving the musculoskeletal system, R32 Unspecified urinary incontinence, brisk reflexes urinary incontinence TECHNIQUE: Multiplanar multisequence examination was performedWithout contrast. FINDINGS: There is mild diffuse degenerative annular bulges from T4-5 through T10-11. There is no significant central canal stenosis or cord compression. There is no abnormal cord signal. IMPRESSION: Mild thoracic degenerative disc disease with mild bulging at multiple levels without focal protrusion or cord compression. [facility]-[id number] Procedure Note Interface, Radiology Results Incoming - 01/21/2017 1:11 PM CDT EXAM: MRI THORACIC SPINE WO CONTRAST COMPARISON: None. CLINICAL HISTORY: R29.898 Other symptoms and signs involving the musculoskeletal system, R32 Unspecified urinary incontinence, brisk reflexes urinary incontinence TECHNIQUE: Multiplanar multisequence examination was performed Without contrast. FINDINGS: There is mild diffuse degenerative annular bulges from T4-5 through T10-11. There is no significant central canal stenosis or cord compression. There is no abnormal cord signal. IMPRESSION: Mild thoracic degenerative disc disease with mild bulging at multiple levels without focal protrusion or cord compression. [facility]-[id number] Performing Organization Address City/State/Zipcoks Phone Number [facility] [address] [place] [address] after 12/19/2016 Insurance Payer Benefit Plan / Group Subscriber ID Type Phone Address [employer] xxxxxxxxxxx MEDICARE MEDICARE PART A AND B xxxxxxxxxx Medicare [place], [place] [phone] [phone]
--- OUTSIDE RECORDS SUMMARY | 2017-12-20 07:51 | XMS REPORT | Continuity of Care Document ---
:1935 Author Organization Interface Problems Problem Status Onset Classification Date Comments Source Date Reported SPONDYLOLTHESIS Active 08/24/19 [facility] S Spondylolisthesis, 07/31/19 10/29/2017 [facility] lumbar region 18 [place] M43.16 Active 07/06/19 [facility] SPONDYLOLISTHESIS, 18 [place] [facility] Stroke<sup>1</sup> Resolved 04/19/19 Problem 10/29/2017 resulted [facility] 00 in left [place] sided Ortho and weakness Spine Bradycardia Active Problem 10/29/2017 [facility] [place] GERD (<span Active Problem 10/29/2017 [facility] ID="[id number]"> [facility], Confirmed</span>) Ortho and Spine Hypertension Active Problem 10/29/2017 [facility] [place] Hypothyroid Active Problem 10/29/2017 [facility] [place] Bowel incontinence Active Problem 10/29/2017 [facility] [place] Urinary frequency Active Problem 10/29/2017 [facility] [place] Osteoarthritis Active Problem 10/29/2017 [facility] [place] Recurrent UTI Active Problem 10/29/2017 [facility] HAS [facility] (<span A UTI 2-3x [place], ID="[id number]"> A YEAR Ortho and Confirmed</span>)< Spine sup>2</sup> TIA (<span Resolved Problem 10/29/2017 x2 [facility] ID="[id number]"> [place], Confirmed</span>)< Ortho and sup>3</sup> Spine Urinary urgency Active Problem 10/29/2017 [facility] [place] Bladder Active Problem 10/29/2017 wears [facility] incontinence<sup>4 diapers [place] </sup> Ortho and Spine SPONDYLOLISTHESIS, Active [facility] [place] Medications Medication Details Route Status Patient Ordering Order Source Instructions Provider Date gabapentin 300 MG 300 mg=1 cap, Active 09/17/ Oral Capsule PO, BID, # 90 2018 Ortho cap, 1 and Refill(s), Spine Pharmacy: [facility]/pharmacy #[id number] tizanidine 4 mg 4 mg=1 tab, PO, Active oral tablet Q8H, PRN for 2018 Ortho muscle spasms, # and 90 tab, 0 Spine Refill(s), Pharmacy: [facility]/pharmacy #[id number] Docusate Sodium 100 mg=1 cap, Active 100 MG Oral PO, BID, # 60 2018 Ortho Capsule [Colace] cap, 1 and Refill(s), Spine Pharmacy: [facility]/pharmacy #[id number] Sertraline 150 mg, 1.5 tab, Inactive Route: PO, Drug 2018 Ortho form: TAB, and Daily, Dosing Spine Weight 70.455, kg, Start date: 09/17/17 9:00:00 CDT, Duration: 30 day, Stop date: 10/16/17 9:00:00 CDTNotes: (Same as: Zoloft) Omeprazole 40 mg, 1 cap, Inactive Route: PO, Drug 2018 Ortho form: DRC, and Daily, Dosing Spine Weight 70.455, kg, Start date: 09/17/17 9:00:00 CDT, Duration: 30 day, Stop date: 10/16/17 9:00:00 CDTNotes: Take 1 hour before or 2 hours after meal; Non-Formulary Drug "Do Not Crush" (Same as: Prilosec) Minoxidil 2.5 mg Minoxidil 2.5 mg Inactive tablet tablet, 2.5 mg, 2018 Ortho 1 tab, Drug and form: MISC, Spine Route: PO, Daily, 09/17/17 9:00:00 CDT, Duration: 30 day, Stop date: 10/16/17 9:00:00 CDT Minoxidil 2.5 mg, Route: No Longer PO, Drug form: Active 2018 Ortho TAB, Daily, and Dosing Weight Spine 70.455, kg, Start date: 09/17/17 9:00:00 CDT, Duration: 30 day, Stop date: 10/16/17 9:00:00 CDT meloxicam 15 mg, 2 tab, Inactive Route: PO, Drug 2018 Ortho form: TAB, and Daily, Dosing Spine Weight 70.455, kg, Start date: 09/17/17 9:00:00 CDT, Duration: 30 day, Stop date: 10/16/17 9:00:00 CDTNotes: (Same as: Mobic) Loratadine 10 mg, 1 tab, Inactive Route: PO, Drug 2017 Ortho form: TAB, and Daily, Dosing Spine Weight 70.455, kg, Start date: 09/17/17 9:00:00 CDT, Duration: 30 day, Stop date: 10/16/17 9:00:00 CDTNotes: 1 hr before meals (Same as: Claritin) Non-formulary item Protonix 40 mg, 1 tab, Inactive Route: PO, Drug 2017 Ortho form: ECTAB, and Daily, Start Spine date: 09/17/17 9:00:00 CDT, Duration: 30 day, Stop date: 10/16/17 9:00:00 CDTNotes: Tablet should not be chewed or crushed. (Same as: Protonix) Thyroxine 100 microgram, 1 Inactive tab, Route: PO, 2017 Ortho Drug form: TAB, and Daily, Dosing Spine Weight 70.455, kg, Start date: 09/17/17 6:30:00 CDT, Duration: 30 day, Stop date: 10/16/17 6:30:00 CDTNotes: Take 1 hour before or 2 hours after meal; Enteral feeds may interefere with the absorption of this medication. (Same as:Levothroid, Synthroid) metoprolol 50 mg, 1 tab, No Longer tartrate Route: PO, Drug Active 2017 Ortho form: TAB, Q12H, and Dosing Weight Spine 70.455, kg, Start date: 09/16/17 21:00:00 CDT, Duration: 30 day, Stop date: 10/16/17 9:00:00 CDTNotes: (Same as: Lopressor) atorvastatin 40 mg, 2 tab, No Longer Route: PO, Drug Active 2017 Ortho form: TAB, and Bedtime, Dosing Spine Weight 70.455, kg, Start date: 09/16/17 21:00:00 CDT, Duration: 30 day, Stop date: 10/15/17 21:00:00 CDTNotes: (Same As: Lipitor) Trazodone 50 mg, 1 tab, No Longer Hydrochloride 100 Route: PO, Drug Active 2018 Ortho MG Oral Tablet form: TAB, and Bedtime, Dosing Spine Weight 70.455, kg, Start date: 09/16/17 21:00:00 CDT, Duration: 30 day, Stop date: 10/15/17 21:00:00 CDTNotes: (Same As: Desyrel) Docusate Sodium 100 mg, 1 cap, No Longer 100 MG Oral Route: PO, Drug Active 2017 Ortho Capsule form: CAP, BID, and Dosing Weight Spine 70.455, kg, Start date: 09/16/17 17:00:00 CDT, Duration: 30 day, Stop date: 10/16/17 9:00:00 CDTNotes: (Same as: Colace) (Do Not Crush) telmisartan 80 mg, 1 tab, No Longer Route: PO, Drug Active 2017 Ortho form: TAB, QPM, and Dosing Weight Spine 70.455, kg, Start date: 09/16/17 17:00:00 CDT, Duration: 30 day, Stop date: 10/15/17 17:00:00 CDTNotes: Non-Formulary Drug. (Same As: Micardis) Cefazolin 1 gm, Route: Inactive IVPB, Drug form: 2018 Ortho PDR/INJ, Q8H, and Dosing Weight Spine 70.455, kg, Start date: 09/16/17 16:00:00 CDT, Duration: 1 doses or times, Stop date: 09/16/17 16:00:00 CDT, ABX Indication: Surgical ProphylaxisNotes : (Same As: AncefKyazol) MEDICATION WASTE Product Size: 1000 mg Product Wasted: ___ mg gabapentin 100 MG 100 mg, 1 cap, No Longer Oral Capsule Route: PO, Drug Active 2017 Ortho form: CAP, TID, and Dosing Weight Spine 70.455, kg, Start date: 09/16/17 14:00:00 CDT, Duration: 30 day, Stop date: 10/16/17 8:00:00 CDTNotes: (Same as: Neurontin) Hydralazine 5 mg, Route: IV, Inactive ONCE, Dosing 2018 Ortho Weight 70.455, and kg, Start date: Spine 09/16/17 12:57:00 CDT, Stop date: 09/16/17 12:57:00 CDT fentaNYL (ANES) Route: IV, Drug Inactive form: INJ, ONCE, 2017 Ortho Stop date: and 09/16/17 Spine 12:02:00 CDT Ancef + Sodium 1 gm, Route: IV, Inactive Chloride 0.9% IV Drug form: 2018 Ortho 100 mL PDR/INJ, ONCE, and Dosing Weight Spine 70.455, kg, Start date: 09/16/17 12:00:00 CDT, Stop date: 09/16/17 12:00:00 CDT, ABX Indication: Surgical ProphylaxisNotes : (Same As: AncAndra skinner) MEDICATION WASTE Product Size: 1000 mg Product Wasted: ___ mg ondansetron Route: IV, Drug Inactive (ANES) form: INJ, ONCE, 2017 Ortho Stop date: and 09/16/17 Spine 11:44:00 CDT Acetaminophen 650 mg, 2 tab, No Longer Route: PO, Drug Active 2017 Ortho form: TAB, Q4H, and Dosing Weight Spine 70.455, kg, PRN Pain 1-3/Temp > 100.4 F, Start date: 09/16/17 11:34:00 CDT, Duration: 30 day, Stop date: 10/16/17 11:33:00 CDTNotes: Do not exceed 4 gm/day. (Same as: Tylenol) Lactated Ringers 1,000 mL, Rate: No Longer IV 1,000 mL 75 ml/hr, Infuse Active 2017 Ortho over: 13.3 hr, and Route: IV, Spine Dosing Weight 70.455 kg, Total Volume: 1,000, Start date: 09/16/17 11:34:00 CDT, Duration: 30 day, Stop date: 10/16/17 11:33:00 CDT, 1.85, m2 Acetaminophen 325 1 tab, Route: No Longer MG / Hydrocodone PO, Drug Form: Active 2018 Ortho Bitartrate 10 MG TAB, Dosing and Oral Tablet Weight 70.455, Spine kg, Q4H, PRN Pain Score 4-6, Start date: 09/16/17 11:34:00 CDT, Duration: 30 day, Stop date: 10/16/17 11:33:00 CDTNotes: Do not exceed 4gm/day of acetaminophen. (Same as: [place] 325/10) Aluminum 30 ml, Route: No Longer Hydroxide 40 PO, Drug Form: Active 2018 Ortho MG/ML / Magnesium SUSP, Dosing and Hydroxide 40 Weight 70.455, Spine MG/ML / kg, Q4H, PRN Simethicone 4 Indigestion, MG/ML Oral Start date: Suspension 09/16/17 11:34:00 CDT, Duration: 30 day, Stop date: 10/16/17 11:33:00 CDTNotes: (aluminum hydroxide-magnes ium hyd- simethicone [phone]/5ml 30 ml ud RILEY) Dulcolax Laxative 5 mg, 1 tab, No Longer Route: PO, Drug Active 2017 Ortho form: ECTAB, and Q24H, Dosing Spine Weight 70.455, kg, PRN Constipation, Start date: 09/16/17 11:34:00 CDT, Duration: 30 day, Stop date: 10/16/17 11:33:00 CDTNotes: (Same As: Dulcolax, Correctol) (Do Not Crush) "Do Not Crush" Morphine 2 mg, 0.2 mL, No Longer Route: IVP, Drug Active 2017 Ortho form: INJ, Q3H, and Dosing Weight Spine 70.455, kg, PRN Pain Score 6-10, Start date: 09/16/17 11:34:00 CDT, Stop date: 10/16/17 11:33:00 CDTNotes: (Same as:MORPhine Sulfate) Ondansetron 4 mg, 1 tab, No Longer Route: PO, Drug Active 2018 Ortho form: TABDIS, and Q6H, Dosing Spine Weight 70.455, kg, PRN Nausea & Vomiting, Start date: 09/16/17 11:34:00 CDT, Duration: 30 day, Stop date: 10/16/17 11:33:00 CDTNotes: (Same as: Zofran ODT) Diphenhydramine 25 mg, 1 cap, No Longer Route: PO, Drug Active 2017 Ortho form: CAP, and Bedtime, Dosing Spine Weight 70.455, kg, PRN Insomnia, Start date: 09/16/17 11:34:00 CDT, Duration: 30 day, Stop date: 10/16/17 11:33:00 CDTNotes: (Same as: Benadryl) Naloxone 0.04 mg, 0.1 mL, No Longer Route: IVP, Drug Active 2017 Ortho form: INJ, and Q2MIN, Dosing Spine Weight 70.455, kg, PRN Narcotic Reversal, Start date: 09/16/17 11:34:00 CDT, Duration: 30 day, Stop date: 10/16/17 11:33:00 CDTNotes: Same as Narcan Hydromorphone 15 mg, 30 mL, No Longer Route: IV, Active 2017 Ortho Initial Loading and Dose: 0.4mg, 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 Spine Dose: 0.2 mg, 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 Lockout: 10 minutes, Continuous Basal Rate: 0 mg, 4 Hour Limit (In MG): 6, Drug Form: INJ, Continuous, Start date: 09/16/17 11:34:00 CDT, Duration: 30 day, Stop date: 10/16/17...Notes : (Same as: Dilaudid) conc=0.5 mg/ml Hydromorphone 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 Dose: ;Delay: ;Basal: dexamethasone Route: IV, Drug Inactive (ANES) form: INJ, ONCE, 2017 Ortho Stop date: and 09/16/17 Spine 11:16:00 CDT phenylephrine Route: IV, Drug Inactive (ANES) form: INJ, ONCE, 2017 Ortho Stop date: and 09/16/17 Spine 10:46:00 CDT acetaminophen Route: IV, Drug Inactive (ANES) 10 mg form: INJ, Start 2017 Ortho date: 09/16/17 and 10:33:00 CDT, Spine Stop date: 09/16/17 11:33:00 CDT rocuronium (ANES) Route: IV, Drug Inactive 09/16/ MH form: INJ, ONCE, 2017 Ortho Stop date: and 09/16/17 Spine 10:26:00 CDT ePHEDrine (ANES) Route: IV, Drug Inactive 09/16/ MH form: INJ, ONCE, 2017 Ortho Stop date: and 09/16/17 Spine 10:21:00 CDT niCARdipine Route: IV, Drug Inactive 09/16/ MH (ANES) form: INJ, ONCE, 2017 Ortho Stop date: and 09/16/17 9:41:00 Spine CDT niCARdipine Route: IV, Drug Inactive 09/16/ MH (ANES) form: INJ, ONCE, 2017 Ortho Stop date: and 09/16/17 9:21:00 Spine CDT ePHEDrine (ANES) Route: IV, Drug Inactive MH form: INJ, ONCE, 2017 Ortho Stop date: and 09/16/17 9:12:00 Spine CDT rocuronium (ANES) Route: IV, Drug Inactive MH form: INJ, ONCE, 2017 Ortho Stop date: and 09/16/17 9:11:00 Spine CDT propofol (ANES) Route: IV, Drug Inactive MH form: INJ, ONCE, 2017 Ortho Stop date: and 09/16/17 9:11:00 Spine CDT succinylcholine Route: IV, Drug Inactive 09/16/ MH (ANES) form: INJ, ONCE, 2017 Ortho Stop date: and 09/16/17 9:11:00 Spine CDT fentaNYL (ANES) Route: IV, Drug Inactive MH form: INJ, ONCE, 2017 Ortho Stop date: and 09/16/17 9:11:00 Spine CDT lidocaine (ANES) Route: IV, Drug Inactive 09/16/ MH form: INJ, ONCE, 2017 Ortho Stop date: and 09/16/17 9:11:00 Spine CDT ceFAZolin (ANES) Route: IV, Drug Inactive 09/16/ MH form: INJ, ONCE, 2017 Ortho Stop date: and 09/16/17 9:06:00 Spine CDT phenylephrine Route: IV, Drug Inactive 05/31/ MH (ANES) form: INJ, ONCE, 2018 Ortho Stop date: and 09/16/17 8:55:00 Spine CDT Zofran ODT 4 mg, 1 tab, Inactive Route: PO, Drug 2017 Ortho form: TABDIS, and ONCE, PRN Nausea Spine & Vomiting, Start date: 09/16/17 8:25:00 CDTNotes: (Same as: Zofran ODT) propofol (ANES) Route: IV, Drug Inactive 10 mg form: INJ, Start 2017 Ortho date: 09/16/17 and 8:22:00 CDT, Spine Stop date: 09/16/17 9:22:00 CDT Dexamethasone 4 mg, 1 mL, Inactive Route: IVP, Drug 2017 Ortho form: INJ, ONCE, and Dosing Weight Spine 70.455, kg, PRN Nausea & Vomiting, Start date: 09/16/17 8:17:00 CDTNotes: Concentration: 4mg/ml Ondansetron 4 mg, 2 mL, Inactive Route: IVP, Drug 2017 Ortho form: INJ, ONCE, and Dosing Weight Spine 70.455, kg, PRN Nausea & Vomiting, Start date: 09/16/17 8:17:00 CDTNotes: (Same as: Zofran) MEDICATION WASTE Product Size: 4 mg Product Wasted: ___ mg Naloxone 0.4 mg, 1 mL, Inactive Route: IVP, Drug 2017 Ortho form: INJ, and Q2MIN, Dosing Spine Weight 70.455, kg, PRN Narcotic Reversal, Start date: 09/16/17 8:17:00 CDT, Duration: 8 doses or times, Stop date: Limited # of timesNotes: Same as Narcan Flumazenil 0.2 mg, 2 mL, Inactive Route: IVP, Drug 2017 Ortho form: INJ, PRN, and Dosing Weight Spine 70.455, kg, PRN Benzodiazepine Reversal, Initial dose, Start date: 09/16/17 8:17:00 CDT, Stop date: 09/16/17 17:00:00 CDTNotes: (Same as: Romazicon) Oxycodone 10 mg, 2 tab, Inactive Route: PO, Drug 2018 Ortho form: TAB, Q4H, and Dosing Weight Spine 70.455, kg, PRN Pain Score 7-10, Start date: 09/16/17 8:17:00 CDT, Stop date: 09/16/17 17:00:00 CDTNotes: (Same as: Roxicodone) Hydromorphone 0.5 mg, 0.25 mL, Inactive Route: IVP, Drug 2017 Ortho form: INJ, and Q5Min, Dosing Spine Weight 70.455, kg, PRN Pain Score 7-10, Start date: 09/16/17 8:17:00 CDT, Duration: 4 doses or times, Stop date: 09/16/17 17:00:00 CDTNotes: Same as Dilaudid Morphine 2 mg, 0.2 mL, Inactive Route: IVP, Drug 2017 Ortho form: INJ, and Q5Min, Dosing Spine Weight 70.455, kg, PRN Pain Score 4-6, Start date: 09/16/17 8:17:00 CDT, Duration: 5 doses or times, Stop date: 09/16/17 17:00:00 CDTNotes: (Same as:MORPhine Sulfate) Acetaminophen 1,000 mg, 2 tab, Inactive Route: PO, Drug 2017 Ortho form: TAB, ONCE, and Dosing Weight Spine 70.455, kg, PRN Pain Score 1-3, Start date: 09/16/17 8:17:00 CDTNotes: Max acetaminophen 4000 mg/day (4 gm/day). (Same as: Tylenol Extra Strength) Labetalol 10 mg, 2 mL, Inactive Route: IVP, Drug 2017 Ortho form: INJ, and Q5Min, Dosing Spine Weight 70.455, kg, PRN Elevated BP, Start date: 09/16/17 8:17:00 CDT, Duration: 5 doses or times, Stop date: 09/16/17 17:00:00 CDT Lactated Ringers Route: IV, Total Inactive Injection IV Volume: 1,000, 2018 Ortho (ANES) 1000 mL Start date: and 09/16/17 7:45:00 Spine CDT, Stop date: 09/16/17 8:45:00 CDT Cefazolin 2 gm, 100 mL, Inactive Route: IVPB, 2018 Ortho Drug form: INJ, and ONCE, Dosing Spine Weight 71.051, kg, Start date: 09/16/17 6:11:00 CDT, Stop date: 09/16/17 6:11:00 CDT, Surgical Prophylaxis Only; For patients Notes: Same as: Ancef Trazodone 50 mg=0.5 tab, Active Hydrochloride 100 PO, Bedtime, # 2018 Ortho MG Oral Tablet 30 tab, 1 and Refill(s) Spine telmisartan 80 mg 80 mg=1 tab, PO, Active oral tablet QPM, # 30 tab, 3 2018 Ortho Refill(s) and Spine solifenacin 10 mg 10 mg=1 tab, PO, Active oral tablet Daily, # 30 tab, 2018 Ortho 1 Refill(s) and Spine sertraline 100 mg 150 mg=1.5 tab, Active oral tablet PO, Daily, # 30 2018 Ortho tab, 0 Refill(s) and Spine omeprazole 40 mg 40 mg=1 cap, PO, Active oral delayed Daily, take DOS, 2018 Ortho release capsule # 30 cap, 0 and Refill(s) Spine minoxidil 2.5 mg 2.5 mg=1 tab, Active oral tablet PO, Daily, # 180 2018 Ortho tab, 3 Refill(s) and Spine metoprolol 50 mg 50 mg=1 tab, PO, Active oral tablet, BID, take DOS, # 2018 Ortho extended release 30 tab, 0 and Refill(s) Spine meloxicam 15 mg 15 mg=1 tab, PO, Active oral tablet Daily, # 30 tab, 2018 Ortho 0 Refill(s) and Spine levothyroxine 100 100 microgram=1 Active mcg (0.1 mg) oral tab, PO, Daily, 2018 Ortho tablet take DOS, # 60 and tab, 0 Refill(s) Spine Levofloxacin 500 500 mg=1 tab, Inactive MG Oral Tablet PO, Q24H, # 10 2018 Ortho [Levaquin] tab, 0 Refill(s) and Spine loratadine 10 mg 10 mg=1 tab, PO, Active oral tablet Daily, # 10 tab, 2018 Ortho 0 Refill(s) and Spine gabapentin 100 MG 100 mg=1 cap, Active Oral Capsule PO, TID, # 90 2018 Ortho cap, 1 Refill(s) and Spine Vitamin D2 50,000 50,000 Active intl units oral IntlUnit=1 cap, 2018 Ortho capsule PO, qWeek, # 24 and cap, 0 Refill(s) Spine clopidogrel 75 mg 75 mg=1 tab, PO, No Longer oral tablet Daily, # 30 tab, Active 2018 Ortho 0 Refill(s) and Spine atorvastatin 40 40 mg=1 tab, PO, Active mg oral tablet Bedtime, # 30 2018 Ortho tab, 0 Refill(s) and Spine Allergies, Adverse Reactions, Alerts Substance Category Reaction Severity Reaction Status Date Comments Source type Reported Macrodantin Assertion itching Drug Active allergy [place] Immunizations Immunization Date Given Site Status Last Updated Comments Source Results Order Name Results Value Reference Date Interpretation Comments Source Range CHEM PANEL Calcium Lvl 8.4 mg/dL 8.5 - 10.5 09/17 and Spine CHEM PANEL CO2 28 meq/L 24 - 32 09/17 and Spine CHEM PANEL Chloride Lvl 107 meq/L 95 - 109 09/17 and Spine CHEM PANEL Creatinine 0.96 mg/dL 0.50 - 09/17 Ortho Lvl 1.40 /2017 and Spine CHEM PANEL BUN 19 mg/dL 7 - 22 09/17 and Spine CHEM PANEL eGFR 55 09/17 Result Comment: The eGFR is calculated using the CKD-EPI formula. In most young, healthy individuals the eGFR will be >90 mL/ min/1.73m2. The eGFR declines with age. An eGFR of 60-89 may be normal in Ortho mL/min/1.7 /2018 some populations, particularly the elderly, for whom the CKD-EPI formula has not been extensively validated. Use of the eGFR is not recommended in the following populations: and Spine 3m2 Individuals with unstable creatinine concentrations, including patients and those with serious co-morbid conditions. Patients with extremes in muscle mass or diet. The data above are obtained from the National Kidney Disease Education Program (NKDEP) which additionally recommends that when the eGFR is used in patients with extremes of body mass index for purposes of drug dosing, the eGFR should be multiplied by the estimated BMI. CHEM PANEL Potassium 4.1 meq/L 3.5 - 5.1 09/17 Ortho Lvl /2017 and Spine CHEM PANEL Sodium Lvl 141 meq/L 135 - 145 09/17 Ortho /2017 and Spine CHEM PANEL Glucose Lvl 134 mg/dL 70 - 99 / MH Ortho /2017 and Spine CHEM PANEL AGAP 10.1 meq/L 10.0 - 09/17 [facility] Ortho 20.0 /2017 and Spine HEMATOLOGY Hgb 9.5 g/dL 12.0 - 09/17 Ortho 16.0 /2017 and Spine HEMATOLOGY Hct 28.2 % 36.0 - 09/17 Ortho 48.0 /2017 and Spine Chest 1view Chest 1view EXAM: XR CHEST 1 VIEW 09/16 - [facility] DX DX /2017 [facility] DATE: 09/16/2017 8:17 AM CDT Read by: Tammy Putnam MD Dictated Date/time: 09/16/17 12:32 Electronically Signed by: Tammy Putnam MD 09/16/17 12:33 FINAL REPORT INDICATION: - Subclavian or Internal Jugular Lines Initiated; Call report to Physician. FINDINGS: A single AP view of the chest is submitted, without a prior study for comparison. Heart is borderline sized. Note is made of aortic arch calcification. A right jugular central venous catheter has its tip over the mid SVC. Bilateral lower lobe platelike atelectasis. No pleural effusions. Degenerative changes of the thoracic spine with osteophytes. IMPRESSION: 1. Borderline sized heart. 2. Bibasilar subsegmental atelectasis. 3. A right jugular central venous catheter has its tip over the mid SVC. BLOOD BANK Antibody Negative 09/16 Ortho RESULTS Scrn /2017 and Spine (09/16/17 6:10 AM) BLOOD BANK ABO/Rh A POS 09/16 Ortho RESULTS /2017 and Spine BLOOD BANK RBC product Product available 09/16 Ortho RESULTS and Spine (09/16/17 5:00 AM) BLOOD BANK ABO/Rh A POS 08/27 Ortho RESULTS /2017 and Spine BLOOD BANK Antibody Negative 08/27 Ortho RESULTS Scrn /2017 and Spine (08/27/17 12:50 PM) CHEM PANEL eGFR 61 08/27 Result Comment: The eGFR is calculated using the CKD-EPI formula. In most young, healthy individuals the eGFR will be >90 mL/ min/1.73m2. The eGFR declines with age. An eGFR of 60-89 may be normal in Ortho mL/min/1.7 /2018 some populations, particularly the elderly, for whom the CKD-EPI formula has not been extensively validated. Use of the eGFR is not recommended in the following populations: and Spine 3m2 Individuals with unstable creatinine concentrations, including patients and those with serious co-morbid conditions. Patients with extremes in muscle mass or diet. The data above are obtained from the National Kidney Disease Education Program (NKDEP) which additionally recommends that when the eGFR is used in patients with extremes of body mass index for purposes of drug dosing, the eGFR should be multiplied by the estimated BMI. CHEM PANEL ASPARTATE 19 unit/L 0 - 37 08/27 Ortho TRANSAMINASE and Spine CHEM PANEL Alk Phos 67 unit/L 39 - 136 08/27 Ortho and Spine CHEM PANEL ALANINE 19 unit/L 0 - 65 08/27 [facility] AMINOTRANSFE /2017 and Spine RASE CHEM PANEL Bili Total 0.7 mg/dL 0.2 - 1.3 08/27 Ortho and Spine CHEM PANEL Albumin Lvl 3.7 g/dL 3.5 - 5.0 08/27 Ortho and Spine CHEM PANEL Glucose Lvl 86 mg/dL 70 - 99 08/27 Ortho and Spine CHEM PANEL Sodium Lvl 144 meq/L 135 - 145 08/27 Ortho and Spine CHEM PANEL Potassium 4.2 meq/L 3.5 - 5.1 08/27 Ortho Lvl /2017 and Spine CHEM PANEL Creatinine 0.88 mg/dL 0.50 - 08/27 Ortho Lvl 1.40 and Spine CHEM PANEL BUN 14 mg/dL 7 - 22 08/27 Ortho and Spine CHEM PANEL Calcium Lvl 8.7 mg/dL 8.5 - 10.5 08/27 Ortho and Spine CHEM PANEL CO2 30 meq/L 24 - 32 08/27 Ortho and Spine CHEM PANEL Total 6.6 g/dL 6.4 - 8.4 08/27 Ortho Protein /2017 and Spine CHEM PANEL Chloride Lvl 107 meq/L 95 - 109 08/27 Ortho and Spine CHEM PANEL B/C Ratio 16 6 - 25 08/27 Ortho and Spine CHEM PANEL Globulin 2.9 g/dL 2.7 - 4.2 08/27 Ortho and Spine CHEM PANEL AGAP 11.2 meq/L 10.0 - 08/27 Ortho 20.0 /2018 and Spine CHEM PANEL A/G Ratio 1.3 0.7 - 1.6 08/27 [facility] Orth[facility] /2018 and Spine HEMATOLOGY Basophils 0.6 % 0.0 - 1.0 08/27 Ortho /2018 and Spine HEMATOLOGY Segs 66.3 % 45.0 - 08/27 Ortho 75.0 /2017 and Spine HEMATOLOGY Eosinophils 3.4 % 0.0 - 4.0 08/27 Ortho 2018 and Spine HEMATOLOGY Lymphocytes 23.1 % 20.0 - 08/27 Ortho 40.0 /2018 and Spine HEMATOLOGY Monocytes 6.6 % 2.0 - 12.0 08/27 Ortho 2018 and Spine HEMATOLOGY Eosinophils 0.2 K/CMM 0.0 - 0.5 08/27 Ortho # /2018 and Spine HEMATOLOGY Monocytes # 0.4 K/CMM 0.0 - 0.8 08/27 Ortho 2018 and Spine HEMATOLOGY Lymphocytes 1.4 K/CMM 1.0 - 5.5 08/27 Ortho # /2018 and Spine HEMATOLOGY Segs-Bands # 4.0 K/CMM 1.5 - 8.1 08/27 Ortho 2018 and Spine HEMATOLOGY INR 1.02 0.85 - 08/27 Ortho 1.17 /2017 and Spine HEMATOLOGY PROTIME 13.4 s 12.0 - 08/27 Ortho 14.7 /2018 and Spine HEMATOLOGY aPTT 28.3 s 22.9 - 08/27 Ortho 35.8 /2018 and Spine HEMATOLOGY Hct 37.2 % 36.0 - 08/27 Ortho 48.0 /2018 and Spine HEMATOLOGY MCV 79.3 fL 80.0 - 08/27 Ortho 98.0 /2018 and Spine HEMATOLOGY MCH 26.5 pg 27.0 - 08/27 Ortho 31.0 /2018 and Spine HEMATOLOGY MCHC 33.4 g/dL 32.0 - 08/27 Ortho 36.0 /2018 and Spine HEMATOLOGY Platelet 145 K/CMM 133 - 450 08/27 Ortho and Spine HEMATOLOGY RDW 13.6 % 11.5 - 08/27 Ortho 14.5 /2017 and Spine HEMATOLOGY MPV 9.3 fL 7.4 - 10.4 08/27 Ortho and Spine HEMATOLOGY WBC 6.0 K/CMM 3.7 - 10.4 08/27 Ortho and Spine HEMATOLOGY RBC 4.69 M/CMM 4.20 - 08/27 Ortho 5.40 /2017 and Spine HEMATOLOGY Hgb 12.4 g/dL 12.0 - 08/27 Ortho 16.0 /2018 and Spine URINE AND UA Turbidity Clear Clear 08/27 Ortho and Spine (08/27/17 12:50 PM) URINE AND UA Color Yellow Yellow 08/27 Ortho STOOL and Spine *NA* (08/27/17 12:50 PM) URINE AND UA Blood Negative Negative 08/27 Ortho STOOL and Spine (08/27/17 12:50 PM) URINE AND UA Ketones Negative Negative 08/27 Ortho STOOL mg/dL mg/dL /2017 and Spine URINE AND UA Bili Negative Negative 08/27 Ortho STOOL and Spine *NA* (08/27/17 12:50 PM) URINE AND UA Glucose Negative Negative 08/27 Ortho STOOL mg/dL mg/dL /2017 and Spine URINE AND UA Protein Negative Negative 08/27 Ortho STOOL mg/dL mg/dL /2017 and Spine URINE AND UA Spec Grav 1.010 <=1.030 08/27 Ortho STOOL and Spine URINE AND UA pH 6.0 5.0 - 8.0 08/27 Ortho STOOL and Spine URINE AND UA Nitrite Negative Negative 08/27 Ortho STOOL and Spine (08/27/17 12:50 PM) URINE AND UA 0.2 EU/dL 0.1 - 1.0 08/27 [facility] [facility] [place] [facility] URINE AND UA Leuk Est Negative Negative 08/27 [facility] (08/27/17 12:50 PM) URINE AND UA Sq Epi None Seen Few 08/27 [facility] (08/27/17 12:50 PM) URINE AND UA RBC None Seen 0 - 2 08/27 [facility] Sp[facility] (08/27/17 12:50 PM) URINE AND UA WBC 0-2 /HPF None Seen 08/27 [facility] STOOL /HPF and Spine URINE AND UA Bacteria Occasional None Seen 08/27 [facility] ST[facility]OL /HPF /HPF and Spine Spine Spine EXAM: MRI CERVICAL SPINE WITHOUT CONTRAST 08/11 - [facility] cervical wo cervical - Dee contrast contrast MRI MRI DATE: 08/11/2017 12:10 PM CDT Read by: Maday Watkins MD Dictated Date/time: 08/11/17 14:40 Electronically Signed by: Maday Watkins MD 08/11/17 14:58 FINAL REPORT INDICATION: M48.02 Spinal stenosis, cervical region - M48.02 Spinal stenosis, cervical region COMPARISON: None. TECHNIQUE: Multiplanar, multisequence noncontrast imaging of the cervical spine. IV contrast: None. FINDINGS: Images are limited by motion. The craniovertebral junction has a normal appearance. The cerebellar tonsils are in the normal position. Osteoarthritic changes are seen at the C1-C2 articulation. The cervical vertebral bodies are normal in height. Mild grade 1 anterolisthesis of C3 on C4 and C4 on C5 by 3 mm. Minimal anterolisthesis of C5 on C6 by 1 to 2 mm. Multilevel degenerative change. Disc desiccation and endplate osteophytes are seen throughout. Loss of disc height is greatest at C5-C6. C2-C3: Mild posterior disc bulge slightly indents the ventral thecal sac. Buckling of the ligamentum flavum mildly indents the dorsal thecal sac. Mild narrowing of the spinal canal. Uncovertebral hypert rophy. Severe left greater than right facet arthropathy with left greater than right foraminal stenoses. C3-C4: 3 to 4 mm posterior disc bulge/pseudobulge mildly indents the ventral thecal sac without mass effect on the cord. Mild spinal canal stenosis. Right greater than left uncovertebral hypertrophy. Se keiry bilateral facet hypertrophy. Severe bilateral foraminal stenoses. C4-C5:4mm posterior disc bulge/pseudobulge and osteophyte complex indents the ventral thecal sac without mass effect on the cord. Mild spinal canal stenosis. Bilateral uncovertebral hypertrophy. Severe left and moderate right facet arthropathy. Severe left greater than right foraminal stenosis. C5-C6: Severe loss of disc height with endplate osteophytes. 5mm posterior disc osteophyte complex lateralizes slightly to the right. It effaces the ventral CSF space and mildly flattens the ventral rob face of the cord. Mild spinal canal stenosis. Severe right greater than left uncovertebral hypertrophy. Severe left greater than right facet arthropathy. Severe right foraminal stenosis. C6/C7: 3mm posterior disc bulge mildly indents the ventral thecal sac without mass effect on the cord. Buckling of the ligamentum flavum effaces the dorsal CSF space. Mild spinal canal stenosis. Mild un covertebral hypertrophy. Severe facet arthropathy. Mild to moderate foraminal stenoses. C7-T1: No significant spinal canal. Severe left greater than right facet arthropathy. Mild left greater than right foraminal stenosis. The cervical cord is normal in signal intensity. The paraspinous soft tissues are unremarkable. IMPRESSION: Posterior disc osteophyte complexes and buckling of ligamentum flavum mildly narrow the spinal canal from C2-C3 through C6-C7. Severe uncovertebral and facet arthropathy result in severe neural foraminal stenoses at multiple levels. Spine Spine lumbar Spine lumbar myelogram CT 07/23 - lumbar myelogram CT /2017 - [facility] Female 82 [address] [place] [address] Read by: Kwabena Toribio MD Dictated Date/time: 07/23/17 17:16 Clinical Indication: M43.16 Spondylolisthesis, lumbar region - M43.16 Spondylolisthesis, lumbar region; Electronically Signed by: Kwabena Toribio MD 07/24/17 10:53 FINAL REPORT Comparison: None Technique: Axial acquisition after myelography with sagittal and coronal reformatted views. FINDINGS: The patient has had previous pedicle screw fusions at L3-L4. Posterior elements of L4-L5 also appear fused. There is a mild anterolisthesis of L4 with respect to L5. Alignment is otherwise sat isfactory. The coronal views demonstrate a mild dextroscoliosis of the midlumbar spine centered at L3. Incidental note is made of advanced atherosclerotic vascular disease in the abdominal aorta. T12-L1: Disc space preserved. No significant disc bulge or herniation. No evidence of significant stenosis of the central canal or neural foramina. L1-L2: Mild generalized disc bulge. Some thickening of the ligamentum flavum posteriorly as well as mild facet arthropathy and hypertrophy. Mild narrowing of the left lateral recess. L2-L3: Severe degenerative disc disease. Vacuum phenomenon. Sclerosis of the adjacent vertebral endplates and marginal spur formation. There is mild AP and moderate transverse narrowing of the canal due to combination of endplate spurring and facet arthropathy/ligamentous thickening. There is moderate to marked lateral recess stenosis bilaterally. L3-L4: Mild disc interval narrowing. Mild generalized disc bulge. No significant stenosis. L4-L5: Mild degenerative anterolisthesis of L4 with respect L5. Posterior elements appear fused. Disc space appears fused. Prominent spurring and hypertrophy associated with the right-sided neural rachel en attenuates the lateral recess/foramen and exiting L4 nerve root sleeve on the right. L5-S1: Mild disc bulge. No significant stenosis of central canal or neural foramina. IMPRESSION: 1. Mild to moderate stenosis of the canal including marked lateral recess stenosis bilaterally at L2-L3 due to accelerated degenerative disc disease. 2. Right-sided lateral recess and foraminal narrowing with attenuation of exiting nerve root sleeve at L4-L5. 3. Bony fusion at L4-L5 with fixed mild anterolisthesis of L4 on L5. 4. Intact pedicle screw fusion at L3-L4. SL: [id number] Spine Spine lumbar Spine lumbar myelogram DX 07/23 - lumbar myelogram - [facility] Female 82 years [place] DX Read by: Kwabena Toribio MD Dictated Date/time: 07/23/17 14:35 Clinical Indication: M43.16 Spondylolisthesis, lumbar region - Comparison : None Electronically Signed by: Kwabena Toribio MD 07/23/17 14:43 FINAL REPORT Technique: After sterile preparation back using topical iodine solution the patient was given local anesthesia using 3 mL 1% lidocaine injected at the puncture site. A 22-gauge spinal needle was then ad vanced into the thecal sac at the level of the upper margin of the L3 vertebral body. Approximately 12 mL of Omnipaque 180 was injected intrathecally for imaging. The patient was given instructions afte r the procedure for bed rest and increased fluid intake. FINDINGS: Pedicle screws are visible in association with fusion at the L3- L4 level. The L4-L5 level appears to also be fused. After administration of contrast media there is an apparent stenosis in the thecal sac at the L2-L3 level. Advanced degenerative spondylosis at this level is associated with prominent marginal endplate spurs. These produce both ventral and lateral impressions on the thecal sac narrowing the spinal canal. There is no significant narrowing of the L3-L4 vertebral. At the L4-L5 level there is a defect involving the axilla of the exiting right L5 nerve root. There is mild to moderate narrowing of the canal a t the L4-L5 level which may be due to spurs arising from the superior endplate of L5. There is diminished filling of the exiting right L5 nerve root. The remainder of the caudal sac is unremarkable. IMPRESSION: Stenosis of the canal at the L2-L3 level in association with advanced spondylosis at L2-L3 and marginal endplate spur formation as described. Suspect significant canalicular stenosis. 2. Pedicle screw fusion at the L3-L4 level appear stable. 3. Suspect bony fusion at L4-L5. 4. Defect involving the axilla of the exiting right L5 nerve root. 5. See post myelogram CT for additional details. SL: [id number] Vital Signs Vital Sign Value Date Comments Source Heart Rate 66 09/17/2017 [facility] Temperature Oral (F) 98.8 F 09/17/2017 [facility] Systolic (mm Hg) 142 09/17/2017 [facility] Diastolic (mm Hg) 52 09/17/2017 [facility] Heart Rate 66 09/17/2017 [facility] Systolic (mm Hg) 139 09/17/2017 [facility] Diastolic (mm Hg) 60 09/17/2017 [facility] Heart Rate 64 09/17/2017 [facility] Systolic (mm Hg) 103 09/17/2017 [facility] Diastolic (mm Hg) 64 09/17/2017 [facility] Respitory Rate 18 09/17/2017 [facility] Temperature Oral (F) 98.5 F 09/17/2017 [facility] Respitory Rate 16 09/17/2017 [facility] Temperature Oral (F) 98.4 F 09/17/2017 [facility] Respitory Rate 16 09/17/2017 [facility] Height 172.72 cm 09/16/2017 [facility] Weight 70.455 09/16/2017 [facility] BMI Calculated 23.62 09/16/2017 [facility] BMI Calculated 23.82 08/27/2017 [facility] Weight 71.051 08/27/2017 [facility] Height 172.72 cm 08/26/2017 [facility] Encounters Location Location Encounter Encounter Reason Attending ADM DC Status Source Details Type Number For Provider Date Date Visit [facility] [id number] Caden 07/23 07/24 [facility] [place] [facility] [place] [facility] [id number] Caden 08/11 08/12 [facility] Inpatient [id number] Caden 09/16 09/17 [facility] Procedures Procedure Code Date Perfomer Comments Source Cataract extraction [id number] [facility] insertion of [place] intraocular lens Hysterectomy [id number] [facility] [place] [facility] - Open [id number] [facility] reduction and [place] internal fixation of fracture Spinal fusion [id number] [facility] [place] Suspension of [id number] [facility] bladder [place] Cataract extraction [id number] [facility] and insertion of Spine intraocular lens Hysterectomy [id number] [facility] - Open [id number] [facility] reduction and Spine internal fixation of fracture Spinal fusion [id number] [facility] Suspension of [id number] [facility] bladder Spine
--- OUTSIDE RECORDS SUMMARY | 2017-12-20 07:52 | XMS REPORT | Summary of Care ---
:1935 Author Organization [facility] Address [address] [place] [id number] Encounter HQ Encntr_alias(FIN) [id number] Date(s): 07/23/17 - 07/23/[address] [address]- [phone] Encounter Diagnosis Spondylolisthesis, lumbar region (Final) - 07/29/17 Discharge Disposition: Home or Self Care Attending Physician: Caden Montez MD Referring Physician: Caden Montez MD Vital Signs No data available for this section Problem List Condition Effective Dates Status Health Status Informant Bradycardia(Confirmed) Active Stroke(Confirmed)1 1999 Resolved GERD (gastroesophageal reflux Active disease)(Confirmed) Hypertension(Confirmed) Active Hypothyroid(Confirmed) Active Bowel incontinence(Confirmed) Active Urinary frequency(Confirmed) Active Osteoarthritis(Confirmed) Active Recurrent UTI (urinary tract Active infection)(Confirmed)2 TIA (transient ischemic Resolved attack)(Confirmed)3 Urinary urgency(Confirmed) Active Bladder incontinence(Confirmed)4 Active 1resulted in left sided [id number] HAS A UTI 2-3x A [id number] diapers Allergies, Adverse Reactions, Alerts Substance Reaction Severity Status Macrodantin itching Active Medications No data available for this section Results No data available for this section Immunizations No data available for this section Procedures Procedure Date Related Diagnosis Body Site Status Cataract extraction and insertion of Completed intraocular lens Hysterectomy Completed ORIF - Open reduction and internal Completed fixation of fracture Spinal fusion Completed Suspension of bladder Completed Social History Social History Type Response Substance Abuse Use: None. Exercise 1 Alcohol Current, Frequency: 1-2 times per month. Previous treatment: None. Smoking Status Former smoker; Exposure to Tobacco Smoke None; Cigarette Smoking Last 365 Days No; Reg Smoking Cessation Counseling No2 entered on: 09/16/17 1no exercise, denies SOB with exertion.2quit smoking 1991 Assessment and Plan No data available for this section
--- OUTSIDE RECORDS SUMMARY | 2017-12-20 07:52 | XMS REPORT | Summary of Care ---
:1935 Author Organization [facility] Address [address] [place] [id number]- Encounter HQ Kelsey_altagracia(FIN) [id number] Date(s): 09/16/17 - 09/17/17 [facility] [address] [place] [id number]- [phone] Discharge Disposition: Home or Self Care Attending Physician: Caden Montez MD Admitting Physician: Caden Montez MD Referring Physician: Caden Montez MD Vital Signs Most recent to oldest 1 2 3 [Reference Range]: Height 172.72 cm 172.72 cm (09/16/17 6:16 AM) (08/26/17 1:24 PM) Temperature Oral [96.4-99.1 98.8 DegF 98.5 DegF 98.4 DegF DegF] (09/17/17 10:15 AM) (09/17/17 6:50 AM) (09/17/17 3:45 AM) Blood Pressure [90-140/60-90 142/52 mmHg 139/60 mmHg 103/64 mmHg mmHg] *HI* (09/17/17 8:48 AM) (09/17/17 6:50 AM) (09/17/17 10:15 AM) Respiratory Rate [14-20 18 BRMIN 16 BRMIN 16 BRMIN BRMIN] (09/17/17 6:50 AM) (09/17/17 3:45 AM) (09/16/17 11:15 PM) Peripheral Pulse Rate [60-100 66 bpm 66 bpm 64 bpm bpm] (09/17/17 10:15 AM) (09/17/17 8:48 AM) (09/17/17 6:50 AM) Weight 70.455 kg 71.051 kg (09/16/17 6:16 AM) (08/27/17 12:19 PM) Body Mass Index 23.62 m2 23.82 m2 (09/16/17 6:16 AM) (08/27/17 12:19 PM) Problem List Condition Effective Dates Status Health Status Informant Bradycardia(Confirmed) Active Stroke(Confirmed)1 1999 Resolved GERD (gastroesophageal reflux Active disease)(Confirmed) Hypertension(Confirmed) Active Hypothyroid(Confirmed) Active Bowel incontinence(Confirmed) Active Urinary frequency(Confirmed) Active Osteoarthritis(Confirmed) Active Recurrent UTI (urinary tract Active infection)(Confirmed)2 TIA (transient ischemic Resolved attack)(Confirmed)3 Urinary urgency(Confirmed) Active Bladder incontinence(Confirmed)4 Active 1resulted in left sided [id number] HAS A UTI 2-3x A [id number] diapers Allergies, Adverse Reactions, Alerts Substance Reaction Severity Status Macrodantin itching Active Medications acetaminophen 650 mg, 2 tab, Route: PO, Drug form: TAB, Q4H, Dosing Weight 70.455, kg, PRN Pain 1-3/Temp > 100.4 F, Start date: 09/16/17 11:34:00 CDT, Duration: 30 day , Stop date: 10/16/17 11:33:00 CDT Notes: Do not exceed 4 gm/day. (Same as: Tylenol) Start Date: 09/16/17 Stop Date: 09/17/17 Status: Discontinuedacetaminophen (ANES) 10 mg Route: IV, Drug form: INJ, Start date: 09/16/17 10:33:00 CDT, Stop date: 11:33:00 CDT Start Date: 09/16/17 Stop Date: 09/16/17 Status: Completedacetaminophen-hydrocodone 325 mg-10 mg oral tablet 1 tab, Route: PO, Drug Form: TAB, Dosing Weight 70.455, kg, Q4H, PRN Pain Score 4-6, Start date: 09/16/17 11:34:00 CDT, Duration: 30 day, Stop date: 10/16/17 11 :33:00 CDT Notes: Do not exceed 4gm/day of acetaminophen. (Same as: Vici 325/10) Start Date: 09/16/17 Stop Date: 09/17/17 Status: DiscontinuedAl hydroxide/Mg hydroxide/simethicone 200 mg-200 mg-20 mg/5 mL oral suspension 30 ml, Route: PO, Drug Form: SUSP, Dosing Weight 70.455, kg, Q4H, PRN Indigestion, Start date: 09/16/17 11:34:00 CDT, Duration: 30 day, Stop date: 11:33:00 CDT Notes: (aluminum hydroxide-magnesium hyd- simethicone [phone]/5ml 30 ml ud RILEY) Start Date: 09/16/17 Stop Date: 09/17/17 Status: DiscontinuedAncef + Sodium Chloride 0.9% IV 100 mL 1 gm, Route: IV, Drug form: PDR/INJ, ONCE, Dosing Weight 70.455, kg, Start date : 09/16/17 12:00:00 CDT, Stop date: 09/16/17 12:00:00 CDT, ABX Indication: Surgical Prophylaxis Notes: (Same As: Andra Hinton) MEDICATION WASTE Product Size: 1000 mgProduct Wasted: ___ mg Start Date: 09/16/17 Stop Date: 09/16/17 Status: CompletedANES acetaminophen 1,000 mg, 2 tab, Route: PO, Drug form: TAB, ONCE, Dosing Weight 70.455, kg, PRN Pain Score 1-3, Start date: 09/16/17 8:17:00 CDT Notes: Max acetaminophen 4000 mg/day (4 gm/day). (Same as: Tylenol Extra Strength) Start Date: 09/16/17 Stop Date: 09/16/17 Status: DiscontinuedANES dexamethasone 4 mg, 1 mL, Route: IVP, Drug form: INJ, ONCE, Dosing Weight 70.455, kg, PRN Nausea & Vomiting, Start date: 09/16/17 8:17:00 CDT Notes: Concentration: 4mg/ml Start Date: 09/16/17 Stop Date: 09/16/17 Status: DiscontinuedANES flumazenil 0.2 mg, 2 mL, Route: IVP, Drug form: INJ, PRN, Dosing Weight 70.455, kg, PRN Benzodiazepine Reversal, Initial dose, Start date: 09/16/17 8:17:00 CDT, Stop date: 09/16/17 17:00:00 CDT Notes: (Same as: Romazicon) Start Date: 09/16/17 Stop Date: 09/16/17 Status: DiscontinuedANES HYDROmorphone 0.5 mg, 0.25 mL, Route: IVP, Drug form: INJ, Q5Min, Dosing Weight 70.455, kg, PRN Pain Score 7-10, Start date: 09/16/17 8:17:00 CDT, Duration: 4 doses or times, Stop date: 09/16/17 17:00:00 CDT Notes: Same as Dilaudid Start Date: 09/16/17 Stop Date: 09/16/17 Status: DiscontinuedANES labetalol 10 mg, 2 mL, Route: IVP, Drug form: INJ, Q5Min, Dosing Weight 70.455, kg, PRN Elevated BP, Start date: 09/16/17 8:17:00 CDT, Duration: 5 doses or times, Stop date: 09/16/17 17:00:00 CDT Start Date: 09/16/17 Stop Date: 09/16/17 Status: DiscontinuedANES morphine Sulfate 2 mg, 0.2 mL, Route: IVP, Drug form: INJ, Q5Min, Dosing Weight 70.455, kg, PRN Pain Score 4-6, Startdate: 09/16/17 8:17:00 CDT, Duration: 5 doses or times, Stop date: 09/16/17 17:00:00 CDT Notes: (Same as:MORPhine Sulfate) Start Date: 09/16/17 Stop Date: 09/16/17 Status: DiscontinuedANES naloxone 0.4 mg, 1 mL, Route: IVP, Drug form: INJ, Q2MIN, Dosing Weight 70.455, kg, PRN Narcotic Reversal, Start date: 09/16/17 8:17:00 CDT, Duration: 8 doses or times , Stop date: Limited # of times Notes: Same as Narcan Start Date: 09/16/17 Stop Date: 09/16/17 Status: DiscontinuedANES ondansetron 4 mg, 2 mL, Route: IVP, Drug form: INJ, ONCE, Dosing Weight 70.455, kg, PRN Nausea & Vomiting, Start date: 09/16/17 8:17:00 CDT Notes: (Same as: Zofran) MEDICATION WASTE Product Size: 4 mgProduct Wasted: ___ mg Start Date: 09/16/17 Stop Date: 09/16/17 Status: DiscontinuedANES oxyCODONE 10 mg, 2 tab, Route: PO, Drug form: TAB, Q4H, Dosing Weight 70.455, kg, PRN Pain Score 7-10, Start date: 09/16/17 8:17:00 CDT, Stop date: 09/16/17 17:00:00 CDT Notes: (Same as: Roxicodone) Start Date: 09/16/17 Stop Date: 09/16/17 Status: DiscontinuedANES oxyCODONE 5 mg, 1 tab, Route: PO, Drug form: TAB, Q4H, Dosing Weight 70.455, kg, PRN Pain Score 4-6, Start date: 09/16/17 8:17:00 CDT, Stop date: 09/16/17 17:00:00 CDT Notes: (Same as: Roxicodone) Start Date: 09/16/17 Stop Date: 09/16/17 Status: Discontinuedatorvastatin 40 mg, 2 tab, Route: PO, Drug form: TAB, Bedtime, Dosing Weight 70.455, kg, Start date: 09/16/17 21:00:00 CDT, Duration: 30 day, Stop date: 10/15/17 21:00: 00 CDT Notes: (Same As: Lipitor) Start Date: 09/16/17 Stop Date: 09/17/17 Status: Discontinuedatorvastatin 40 mg oral tablet 40 mg=1 tab, PO, Bedtime, # 30 tab, 0 Refill(s) Start Date: 08/27/17 Status: OrderedceFAZolin 2 gm, 100 mL, Route: IVPB, Drug form: INJ, ONCE, Dosing Weight 71.051, kg, Start date: 09/16/17 6:11:00 CDT, Stop date: 09/16/17 6:11:00 CDT, Surgical Prophylaxis Only; For patients < 120 kg, ABX Indication: Surgical Prophylaxis Notes: Same as: Ancef Start Date: 09/16/17 Stop Date: 09/16/17 Status: CompletedceFAZolin (ANES) Route: IV, Drug form: INJ, ONCE, Stop date: 09/16/17 9:06:00 CDT Start Date: 09/16/17 Stop Date: 09/16/17 Status: CompletedceFAZolin (SCIP) + Sodium Chloride 0.9% IV 50 mL 1 gm, Route: IVPB, Drug form: PDR/INJ, Q8H, Dosing Weight 70.455, kg, Start date : 09/16/17 16:00:00 CDT, Duration: 1 doses or times, Stop date: 09/16/17 16:00: 00 CDT, ABX Indication: Surgical Prophylaxis Notes: (Same As: Andra Hinton) MEDICATION WASTE Product Size: 1000 mgProduct Wasted: ___ mg Start Date: 09/16/17 Stop Date: 09/16/17 Status: Completedclopidogrel 75 mg oral tablet 75 mg=1 tab, PO, Daily, # 30 tab, 0 Refill(s) Start Date: 08/27/17 Stop Date: 09/17/17 Status: DiscontinuedColace 100 mg oral capsule 100 mg=1 cap, PO, BID, # 60 cap, 1 Refill(s), Pharmacy: [facility]/pharmacy #[id number] Start Date: 09/17/17 Status: Ordereddexamethasone (ANES) Route: IV, Drug form: INJ, ONCE, Stop date: 09/16/17 11:16:00 CDT Start Date: 09/16/17 Stop Date: 09/16/17 Status: CompleteddiphenhydrAMINE 25 mg, 1 cap, Route: PO, Drug form: CAP, Bedtime, Dosing Weight 70.455, kg, PRN Insomnia, Start date: 09/16/17 11:34:00 CDT, Duration: 30 day, Stop date: 11:33:00 CDT Notes: (Same as: Benadryl) Start Date: 09/16/17 Stop Date: 09/17/17 Status: Discontinueddocusate sodium 100 mg oral capsule 100 mg, 1 cap, Route: PO, Drug form: CAP, BID, Dosing Weight 70.455, kg, Start date: 09/16/17 17:00:00 CDT, Duration: 30 day, Stop date: 10/16/17 9:00:00 CDT Notes: (Same as: Colace) (Do Not Crush) Start Date: 09/16/17 Stop Date: 09/17/17 Status: DiscontinuedDulcolax Laxative 5 mg, 1 tab, Route: PO, Drug form: ECTAB, Q24H, Dosing Weight 70.455, kg, PRN Constipation, Start date: 09/16/17 11:34:00 CDT, Duration: 30 day, Stop date: 11:33:00 CDT Notes: (Same As: Dulcolax, Correctol) (Do Not Crush) "Do Not Crush" Start Date: 09/16/17 Stop Date: 09/17/17 Status: DiscontinuedePHEDrine (ANES) Route: IV, Drug form: INJ, ONCE, Stop date: 09/16/17 10:21:00 CDT Start Date: 09/16/17 Stop Date: 09/16/17 Status: CompletedePHEDrine (ANES) Route: IV, Drug form: INJ, ONCE, Stop date: 09/16/17 9:12:00 CDT Start Date: 09/16/17 Stop Date: 09/16/17 Status: CompletedfentaNYL (ANES) Route: IV, Drug form: INJ, ONCE, Stop date: 09/16/17 12:02:00 CDT Start Date: 09/16/17 Stop Date: 09/16/17 Status: CompletedfentaNYL (ANES) Route: IV, Drug form: INJ, ONCE, Stop date: 09/16/17 9:11:00 CDT Start Date: 09/16/17 Stop Date: 09/16/17 Status: Completedgabapentin 100 mg oral capsule 100 mg=1 cap, PO, TID, # 90 cap, 1 Refill(s) Start Date: 08/27/17 Status: Orderedgabapentin 100 mg oral capsule 100 mg, 1 cap, Route: PO, Drug form: CAP, TID, Dosing Weight 70.455, kg, Start date: 09/16/17 14:00:00 CDT, Duration: 30 day, Stop date: 10/16/17 8:00:00 CDT Notes: (Same as: Neurontin) Start Date: 09/16/17 Stop Date: 09/17/17 Status: Discontinuedgabapentin 300 mg oral capsule 300 mg=1 cap, PO, BID, # 90 cap, 1 Refill(s), Pharmacy: [facility]/pharmacy #[id number] Start Date: 09/17/17 Status: OrderedhydrALAZINE 5 mg, Route: IV, ONCE, Dosing Weight 70.455, kg, Start date: 09/16/17 12:57:00 CDT, Stop date: 09/16/17 12:57:00 CDT Start Date: 09/16/17 Stop Date: 09/16/17 Status: CompletedHYDROmorphone 0.5mg/mL THERAPY ASSISTANT (15mg/30 mL) 15 mg 15 mg, 30 mL, Route: IV, Initial Loading Dose: 0.4mg, THERAPY ASSISTANT Dose: 0.2 mg, THERAPY ASSISTANT Lockout: 10 minutes, Continuous Basal Rate: 0 mg, 4 Hour Limit (In MG): 6, Drug Form: INJ, Continuous, Start date: 09/16/17 11:34:00 CDT, Duration: 30 day, Stop date: 10/16/17... Notes: (Same as: Dilaudid) conc=0.5 mg/mlHydromorphone THERAPY ASSISTANT Dose: ;Delay : ;Basal: Start Date: 09/16/17 Stop Date: 09/17/17 Status: DiscontinuedLactated Ringers Injection IV (ANES) 1000 mL Route: IV, Total Volume: 1,000, Start date: 09/16/17 7:45:00 CDT, Stop date: 8:45:00 CDT Start Date: 09/16/17 Stop Date: 09/16/17 Status: CompletedLactated Ringers IV 1,000 mL 1,000 mL, Rate: 75 ml/hr, Infuse over: 13.3 hr, Route: IV, Dosing Weight 70.455 kg, Total Volume: 1,000, Start date: 09/16/17 11:34:00 CDT, Duration: 30 day, Stop date: 10/16/17 11:33:00 CDT, 1.85, m2 Start Date: 09/16/17 Stop Date: 09/17/17 Status: DiscontinuedLevaquin 500 mg oral tablet 500 mg=1 tab, PO, Q24H, # 10 tab, 0 Refill(s) Start Date: 08/27/17 Stop Date: 08/27/17 Status: Discontinuedlevothyroxine 100 microgram, 1 tab, Route: PO, Drug form: TAB, Daily, Dosing Weight 70.455, kg , Start date: 09/17/17 6:30:00 CDT, Duration: 30 day, Stop date: 10/16/17 6:30: 00 CDT Notes: Take 1 hour before or 2 hours after meal; Enteral feeds may interefere with the absorption ofthis medication. (Same as:Levothroid, Synthroid) Start Date: 09/17/17 Stop Date: 09/17/17 Status: Discontinuedlevothyroxine 100 mcg (0.1 mg) oral tablet 100 microgram=1 tab, PO, Daily, take DOS, # 60 tab, 0 Refill(s) Start Date: 08/27/17 Status: Orderedlidocaine (ANES) Route: IV, Drug form: INJ, ONCE, Stop date: 09/16/17 9:11:00 CDT Start Date: 09/16/17 Stop Date: 09/16/17 Status: Completedloratadine 10 mg, 1 tab, Route: PO, Drug form: TAB, Daily, Dosing Weight 70.455, kg, Start date: 09/17/17 9:00:00 CDT, Duration: 30 day, Stop date: 10/16/17 9:00:00 CDT Notes: 1 hr before meals (Same as: Claritin)Non-formulary item Start Date: 09/17/17 Stop Date: 09/17/17 Status: Discontinuedloratadine 10 mg oral tablet 10 mg=1 tab, PO, Daily, # 10 tab, 0 Refill(s) Start Date: 08/27/17 Status: Orderedmeloxicam 15 mg, 2 tab, Route: PO, Drug form: TAB, Daily, Dosing Weight 70.455, kg, Start date: 09/17/17 9:00:00 CDT, Duration: 30 day, Stop date: 10/16/17 9:00:00 CDT Notes: (Same as: Mobic) Start Date: 09/17/17 Stop Date: 09/17/17 Status: Discontinuedmeloxicam 15 mg oral tablet 15 mg=1 tab, PO, Daily, # 30 tab, 0 Refill(s) Start Date: 08/27/17 Status: Orderedmetoprolol 50 mg oral tablet, extended release 50 mg=1 tab, PO, BID, take DOS, # 30 tab, 0 Refill(s) Start Date: 08/27/17 Status: Orderedmetoprolol tartrate 50 mg, 1 tab, Route: PO, Drug form: TAB, Q12H, Dosing Weight 70.455, kg, Start date: 09/16/17 21:00:00 CDT, Duration: 30 day, Stop date: 10/16/17 9:00:00 CDT Notes: (Same as: Lopressor) Start Date: 09/16/17 Stop Date: 09/17/17 Status: Discontinuedminoxidil 2.5 mg, Route: PO, Drug form: TAB, Daily, Dosing Weight 70.455, kg, Start date: 09/17/17 9:00:00 CDT, Duration: 30 day, Stop date: 10/16/17 9:00:00 CDT Start Date: 09/17/17 Stop Date: 09/16/17 Status: Deletedminoxidil 2.5 mg oral tablet 2.5 mg=1 tab, PO, Daily, # 180 tab, 3 Refill(s) Start Date: 08/27/17 Status: OrderedMinoxidil 2.5 mg tablet Minoxidil 2.5 mg tablet, 2.5 mg, 1 tab, Drug form: MISC, Route: PO, Daily, 09/17 9:00:00 CDT, Duration: 30 day, Stop date: 10/16/17 9:00:00 CDT Start Date: 09/17/17 Stop Date: 09/17/17 Status: Discontinuedmorphine Sulfate 2 mg, 0.2 mL, Route: IVP, Drug form: INJ, Q3H, Dosing Weight 70.455, kg, PRN Pain Score 6-10, Start date: 09/16/17 11:34:00 CDT, Stop date: 10/16/17 11:33: 00 CDT Notes: (Same as:MORPhine Sulfate) Start Date: 09/16/17 Stop Date: 09/17/17 Status: Discontinuednaloxone 0.04 mg, 0.1 mL, Route: IVP, Drug form: INJ, Q2MIN, Dosing Weight 70.455, kg, PRN Narcotic Reversal,Start date: 09/16/17 11:34:00 CDT, Duration: 30 day, Stop date: 10/16/17 11:33:00 CDT Notes: Same as Narcan Start Date: 09/16/17 Stop Date: 09/17/17 Status: DiscontinuedniCARdipine (ANES) Route: IV, Drug form: INJ, ONCE, Stop date: 09/16/17 9:21:00 CDT Start Date: 09/16/17 Stop Date: 09/16/17 Status: CompletedniCARdipine (ANES) Route: IV, Drug form: INJ, ONCE, Stop date: 09/16/17 9:41:00 CDT Start Date: 09/16/17 Stop Date: 09/16/17 Status: Completedomeprazole 40 mg, 1 cap, Route: PO, Drug form: DRC, Daily, Dosing Weight 70.455, kg, Start date: 09/17/17 9:00:00 CDT, Duration: 30 day, Stop date: 10/16/17 9:00:00 CDT Notes: Take 1 hour before or 2 hours after meal; Non-Formulary Drug"Do Not Crush " (Same as: Prilosec) Start Date: 09/17/17 Stop Date: 09/17/17 Status: Deletedomeprazole 40 mg oral delayed release capsule 40 mg=1 cap, PO, Daily, take DOS, # 30 cap, 0 Refill(s) Start Date: 08/27/17 Status: Orderedondansetron 4 mg, 1 tab, Route: PO, Drug form: TABDIS, Q6H, Dosing Weight 70.455, kg, PRN Nausea & Vomiting,Start date: 09/16/17 11:34:00 CDT, Duration: 30 day, Stop date: 10/16/17 11:33:00 CDT Notes: (Same as: Zofran ODT) Start Date: 09/16/17 Stop Date: 09/17/17 Status: Discontinuedondansetron (ANES) Route: IV, Drug form: INJ, ONCE, Stop date: 09/16/17 11:44:00 CDT Start Date: 09/16/17 Stop Date: 09/16/17 Status: Completedphenylephrine (ANES) Route: IV, Drug form: INJ, ONCE, Stop date: 09/16/17 10:46:00 CDT Start Date: 09/16/17 Stop Date: 09/16/17 Status: Completedphenylephrine (ANES) Route: IV, Drug form: INJ, ONCE, Stop date: 09/16/17 8:55:00 CDT Start Date: 09/16/17 Stop Date: 09/16/17 Status: Completedpropofol (ANES) Route: IV, Drug form: INJ, ONCE, Stop date: 09/16/17 9:11:00 CDT Start Date: 09/16/17 Stop Date: 09/16/17 Status: Completedpropofol (ANES) 10 mg Route: IV, Drug form: INJ, Start date: 09/16/17 8:22:00 CDT, Stop date: 9:22:00 CDT Start Date: 09/16/17 Stop Date: 09/16/17 Status: CompletedProtonix 40 mg, 1 tab, Route: PO, Drug form: ECTAB, Daily, Start date: 09/17/17 9:00:00 CDT, Duration: 30 day, Stop date: 10/16/17 9:00:00 CDT Notes: Tablet should not be chewed or crushed.(Same as: Protonix) Start Date: 09/17/17 Stop Date: 09/17/17 Status: Discontinuedrocuronium (ANES) Route: IV, Drug form: INJ, ONCE, Stop date: 09/16/17 10:26:00 CDT Start Date: 09/16/17 Stop Date: 09/16/17 Status: Completedrocuronium (ANES) Route: IV, Drug form: INJ, ONCE, Stop date: 09/16/17 9:11:00 CDT Start Date: 09/16/17 Stop Date: 09/16/17 Status: Completedsertraline 150 mg, 1.5 tab, Route: PO, Drug form: TAB, Daily, Dosing Weight 70.455, kg, Start date: 09/17/17 9:00:00 CDT, Duration: 30 day, Stop date: 10/16/17 9:00:00 CDT Notes: (Same as: Zoloft) Start Date: 09/17/17 Stop Date: 09/17/17 Status: Discontinuedsertraline 100 mg oral tablet 150 mg=1.5 tab, PO, Daily, # 30 tab, 0 Refill(s) Start Date: 08/27/17 Status: Orderedsolifenacin 10 mg oral tablet 10 mg=1 tab, PO, Daily, # 30 tab, 1 Refill(s) Start Date: 08/27/17 Status: Orderedsuccinylcholine (ANES) Route: IV, Drug form: INJ, ONCE, Stop date: 09/16/17 9:11:00 CDT Start Date: 09/16/17 Stop Date: 09/16/17 Status: Completedtelmisartan 80 mg, 1 tab, Route: PO, Drug form: TAB, QPM, Dosing Weight 70.455, kg, Start date: 09/16/17 17:00:00 CDT, Duration: 30 day, Stop date: 10/15/17 17:00:00 CDT Notes: Non-Formulary Drug. (Same As: Micardis) Start Date: 09/16/17 Stop Date: 09/17/17 Status: Discontinuedtelmisartan 80 mg oral tablet 80 mg=1 tab, PO, QPM, # 30 tab, 3 Refill(s) Start Date: 08/27/17 Status: Orderedtizanidine 4 mg oral tablet 4 mg=1 tab, PO, Q8H, PRN for muscle spasms, # 90 tab, 0 Refill(s), Pharmacy: [facility] /pharmacy #[id number] Start Date: 09/17/17 Status: Orderedtrazodone 100 mg oral tablet 50 mg=0.5 tab, PO, Bedtime, # 30 tab, 1 Refill(s) Start Date: 08/27/17 Status: Orderedtrazodone 100 mg oral tablet 50 mg, 1 tab, Route: PO, Drug form: TAB, Bedtime, Dosing Weight 70.455, kg, Start date: 09/16/17 21:00:00 CDT, Duration: 30 day, Stop date: 10/15/17 21:00: 00 CDT Notes: (Same As: Yosvany) Start Date: 09/16/17 Stop Date: 09/17/17 Status: DiscontinuedVitamin D2 50,000 intl units oral capsule 50,000 IntlUnit=1 cap, PO, qWeek, # 24 cap, 0 Refill(s) Start Date: 08/27/17 Status: OrderedZofran ODT 4 mg, 1 tab, Route: PO, Drug form: TABDIS, ONCE, PRN Nausea & Vomiting, Start date: 09/16/17 8:25:00 CDT Notes: (Same as: Zofran ODT) Start Date: 09/16/17 Stop Date: 09/16/17 Status: Discontinued Results BLOOD BANK RESULTS Most recent to oldest [Reference Range]: 1 2 ABO/Rh A POS A POS *Unknown* *Unknown* (09/16/17 6:10 AM) (08/27/17 12:50 PM) Antibody Scrn Negative Negative (09/16/17 6:10 AM) (08/27/17 12:50 PM) RBC product Product available (09/16/17 5:00 AM) ELECTROLYTES Most recent to oldest [Reference Range]: 1 2 Sodium Lvl [135-145 mEq/L] 141 mEq/L 144 mEq/L (09/17/17 3:44 AM) (08/27/17 12:50 PM) Potassium Lvl [3.5-5.1 mEq/L] 4.1 mEq/L 4.2 mEq/L (09/17/17 3:44 AM) (08/27/17 12:50 PM) Chloride Lvl [95-109 mEq/L] 107 mEq/L 107 mEq/L (09/17/17 3:44 AM) (08/27/17 12:50 PM) CO2 [24-32 mEq/L] 28 mEq/L 30 mEq/L (09/17/17 3:44 AM) (08/27/17 12:50 PM) AGAP [10.0-20.0 mEq/L] 10.1 mEq/L 11.2 mEq/L (09/17/17 3:44 AM) (08/27/17 12:50 PM) CHEM PANEL Most recent to oldest [Reference Range]: 1 2 Creatinine Lvl [0.50-1.40 mg/dL] 0.96 mg/dL 0.88 mg/dL (09/17/17 3:44 AM) (08/27/17 12:50 PM) eGFR 55 mL/min/1.73m2 1 61 mL/min/1.73m2 2 *NA* *NA* (09/17/17 3:44 AM) (08/27/17 12:50 PM) BUN [7-22 mg/dL] 19 mg/dL 14 mg/dL (09/17/17 3:44 AM) (08/27/17 12:50 PM) B/C Ratio [6-25] 16 (08/27/17 12:50 PM) Glucose Lvl [70-99 mg/dL] 134 mg/dL 86 mg/dL *HI* (08/27/17 12:50 PM) (09/17/17 3:44 AM) Total Protein [6.4-8.4 g/dL] 6.6 g/dL (08/27/17 12:50 PM) Albumin Lvl [3.5-5.0 g/dL] 3.7 g/dL (08/27/17 12:50 PM) Globulin [2.7-4.2 g/dL] 2.9 g/dL (08/27/17 12:50 PM) A/G Ratio [0.7-1.6] 1.3 (08/27/17 12:50 PM) Calcium Lvl [8.5-10.5 mg/dL] 8.4 mg/dL 8.7 mg/dL *LOW* (08/27/17 12:50 PM) (09/17/17 3:44 AM) ALT [0-65 unit/L] 19 unit/L (08/27/17 12:50 PM) AST [0-37 unit/L] 19 unit/L (08/27/17 12:50 PM) Alk Phos [39-136 unit/L] 67 unit/L (08/27/17 12:50 PM) Bili Total [0.2-1.3 mg/dL] 0.7 mg/dL (08/27/17 12:50 PM) 1Result Comment: The eGFR is calculated using the CKD-EPI formula. In most young , healthy individualsthe eGFR will be >90 mL/min/1.73m2. The eGFR declines with age. An eGFR of 60-89 may be normal insome populations, particularly the elderly, for whom the CKD-EPI formula has not been extensively validated. Use of the eGFR is not recommended in the following populations: Individuals with unstable creatinine concentrations, including patients and those with serious co-morbid conditions. Patients with extremes in muscle mass or diet. The data above are obtained from the National Kid[employer] Education Program ( [employer]) which additionally recommends that when the eGFR is used in patients with extremes of body mass index for purposesof drug dosing, the eGFR should be multiplied by the estimated BMI.2Result Comment: The eGFR is calculated using the CKD-EPI formula. In most young, healthy individualsthe eGFR will be >90 mL/min/1.73m2. The eGFR declines with age. An eGFR of 60-89 may be normal insome populations, particularly the elderly, for whom the CKD-EPI formula has not been extensively validated. Use of the eGFR is not recommended in the following populations: Individuals with unstable creatinine concentrations, including patients and those with serious co-morbid conditions. Patients with extremes in muscle mass or diet. The data above are obtained from the [employer] ( [employer]) which additionally recommends that when the eGFR is used in patients with extremes of body mass index for purposesof drug dosing, the eGFR should be multiplied by the estimated BMI.URINE AND STOOL Most recent to oldest [Reference Range]: 1 2 UA Turbidity [Clear] Clear (08/27/17 12:50 PM) UA Color [Yellow] Yellow *NA* (08/27/17 12:50 PM) UA pH [5.0-8.0] 6.0 (08/27/17 12:50 PM) UA Spec Grav [<=1.030] 1.010 (08/27/17 12:50 PM) UA Glucose [Negative mg/dL] Negative mg/dL (08/27/17 12:50 PM) UA Blood [Negative] Negative (08/27/17 12:50 PM) UA Ketones [Negative mg/dL] Negative mg/dL *NA* (08/27/17 12:50 PM) UA Protein [Negative mg/dL] Negative mg/dL (08/27/17 12:50 PM) UA Urobilinogen [0.1-1.0 EU/dL] 0.2 EU/dL (08/27/17 12:50 PM) UA Bili [Negative] Negative *NA* (08/27/17 12:50 PM) UA Leuk Est [Negative] Negative (08/27/17 12:50 PM) UA Nitrite [Negative] Negative (08/27/17 12:50 PM) UA WBC [None Seen /HPF] 0-2 /HPF (08/27/17 12:50 PM) UA RBC [0-2] None Seen (08/27/17 12:50 PM) UA Bacteria [None Seen /HPF] Occasional /HPF (08/27/17 12:50 PM) UA Sq Epi [Few] None Seen (08/27/17 12:50 PM) HEMATOLOGY Most recent to oldest [Reference Range]: 1 2 WBC [3.7-10.4 K/CMM] 6.0 K/CMM (08/27/17 12:50 PM) RBC [4.20-5.40 M/CMM] 4.69 M/CMM (08/27/17 12:50 PM) Hgb [12.0-16.0 g/dL] 9.5 g/dL 12.4 g/dL *LOW* (08/27/17 12:50 PM) (09/17/17 3:44 AM) Hct [36.0-48.0 %] 28.2 % 37.2 % *LOW* (08/27/17 12:50 PM) (09/17/17 3:44 AM) MCV [80.0-98.0 fL] 79.3 fL *LOW* (08/27/17 12:50 PM) MCH [27.0-31.0 pg] 26.5 pg *LOW* (08/27/17 12:50 PM) MCHC [32.0-36.0 g/dL] 33.4 g/dL (08/27/17 12:50 PM) RDW [11.5-14.5 %] 13.6 % (08/27/17 12:50 PM) MPV [7.4-10.4 fL] 9.3 fL (08/27/17 12:50 PM) Platelet [133-450 K/CMM] 145 K/CMM (08/27/17 12:50 PM) Segs [45.0-75.0 %] 66.3 % (08/27/17 12:50 PM) Lymphocytes [20.0-40.0 %] 23.1 % (08/27/17 12:50 PM) Monocytes [2.0-12.0 %] 6.6 % (08/27/17 12:50 PM) Eosinophils [0.0-4.0 %] 3.4 % (08/27/17 12:50 PM) Basophils [0.0-1.0 %] 0.6 % (08/27/17 12:50 PM) Segs-Bands # [1.5-8.1 K/CMM] 4.0 K/CMM (08/27/17 12:50 PM) Lymphocytes # [1.0-5.5 K/CMM] 1.4 K/CMM (08/27/17 12:50 PM) Monocytes # [0.0-0.8 K/CMM] 0.4 K/CMM (08/27/17 12:50 PM) Eosinophils # [0.0-0.5 K/CMM] 0.2 K/CMM (08/27/17 12:50 PM) PT [12.0-14.7 seconds] 13.4 seconds (08/27/17 12:50 PM) INR [0.85-1.17] 1.02 (08/27/17 12:50 PM) PTT [22.9-35.8 seconds] 28.3 seconds (08/27/17 12:50 PM) Immunizations No data available for this section [...] 1no exercise, denies SOB with exertion.2quit smoking 1992 Assessment and Plan Extracted from: Title: Discharge Summary * Author: Darien Bianchi Date: 09/17/17 [facility]BC,SPECIAL EDUCATION PARA PROFESSIONAL,CCRN,DARÍO Discharge Plan Discharge Summary Plan Discharge Status: improved. Discharge instructions given: to patient, to family member daughter, written discharge instructions (activity level, diet, follow-up appointment, medications ). Discharge disposition: discharge to home (into the care of family member, self care). Prescriptions: continue same medications, reviewed (with patient, with caregiver), written and given to patient. Course Improving. Progressing as expected. Education and Follow-up Counseled: patient, family, regarding diagnosis, regarding treatment, regarding medications. Extracted from: Title: History and Physical Author: Darien Bianchi Date: 09/13/17 AGACNP,-BC,SPECIAL EDUCATION PARA PROFESSIONAL,CCRN,DARÍO Patient: Juana Marquez : 1935 Date: 09/08/2017 History of Present Illness Chief Complaint: Low back pain. Location: Bilateral Injury: Yes Mechanism of injury: The patient has fallen several times in the past 2 weeks. Duration: 2 weeks. Current Symptoms: Patient has difficulty sitting, difficulty standing, difficulty walking, discomfort with motion, limited range of motion, pain, stiffness Patient does not have bowel/bladder dysfunction, pain radiating into extremities, parathesias, radicular symptoms Current Treatment: ice, heat, rest, ibuprofen, prior spine surgery Current Treatment Comments: She had lumbar fusion at L4-L5 by me and lumbar fusion at L3-L4 in 2011. She did very well and was asymptomatic until 2 weeks ago. Improves with OTC medications. Symptoms have: Improved HPI: The patient describes her low back pain as aching. She has numbness in the lower extremities bilaterally. She has a history of neuropathy. VAS today is 0, on average 4, at best 0, and at worse 10 o ut of 10. Over the past few months, she has reported significant weakness into the lower extremities. She is having episodes of bladder incontinence. She has had falls secondary to her weakness. She use s a walker while ambulating. She underwent physical therapy without improvement. She has had an MRI performed Past Surgical History 2 back surgeries, hysterectomy, left knee replacement Social History: Reitred Dominant Hand: Right Handed Walking Assisstance Needed: cane Medications * MEDICATION LIST ON FILE TRAMADOL HCL 50 MG TABS (TRAMADOL HCL) i po q 6 hours prn pain MEDROL (LISA) 4 MG TABS (METHYLPREDNISOLONE) Use as directed MELOXICAM TABS (MELOXICAM TABS) ECOTRIN TBEC (ASPIRIN TBEC) AMLODIPINE-ATORVASTATIN TABS (AMLODIPINE-ATORVASTATIN TABS) NEXIUM PACK (ESOMEPRAZOLE MAGNESIUM PACK) SYNTHROID TABS (LEVOTHYROXINE SODIUM TABS) ALLOPURINOL TABS (ALLOPURINOL TABS) SERTRALINE HCL TABS (SERTRALINE HCL TABS) MICARDIS TABS (TELMISARTAN TABS) MEDROL (LISA) 4 MG TABS (METHYLPREDNISOLONE) TAKE DIRECTED LYRICA 75 MG CAPS (PREGABALIN) i po BID Allergies: MACRODANTIN (Mild) Risk Factors: Smoked Tobacco Use: Never smoker Drug use: no Alcohol use: no Ht: 68 in. Wt: 161 lbs. BMI 24.57 (Normal) T: 98.0 deg F. P: 67 BP: 153/78 Review of Systems General: Denies fevers,chills,sweats,anorexia,fatigue,malaise,weight loss. Eyes: Denies blurring,diplopia,irritation,discharge,vision loss,eye pain, photophobia. Ears/Nose/Throat: Denies earache, ear discharge, tinnitus, decreased hearing, nasal congestion, nosebleeds, sore throat, hoarseness, dysphagia. Cardiovascular: Denies chest pains, palpitations, syncope, dyspnea on exertion , orthopnea, PND, peripheral edema. Respiratory: Denies cough, dyspnea, excessive sputum, hemoptysis, wheezing. Gastrointestinal: Denies nausea, vomiting, diarrhea, constipation, change in bowel habits, abdominal pain, melena, hematochezia, jaundice. Genitourinary: Denies vaginal discharge, incontinence, dysuria, hematuria, urinary frequency, amenorrhea, menorrhagia, abnormal vaginal bleeding, pelvic pain. Musculoskeletal: Complains of back pain. Skin: Denies rash, itching, dryness, suspicious lesions. Neurologic: Denies transient paralysis, weakness, paresthesias, seizures, syncope, tremors, vertigo. Endocrine: Denies cold intolerance, heat intolerance, polydipsia, polyphagia, polyuria, weight change. Heme/Lymphatic: Denies abnormal bruising, bleeding,enlarged lymph nodes. Allergic/Immunologic: Denies urticaria, hay fever, persistent infections, HIV exposure. General Physical Exam General: Patient is well developed, well nourished, and in no acute distress. Patient is alert and oriented and without agitation. HEENT: Exam reveals lips, teeth, and gums are within normal limits. Oral pharynx reveals normal oral mucosa. Neck: Supple, symmetric, and without obvious masses. Skin: Without nodularity, rashes, lesions or ulcerations. Respiratory: Breathing is unlabored. Cardiovascular: Regular rate and rhythm. Abdomen: Soft, nontender,without obvious masses. Detailed Back/Spine Exam General: Patient is well developed, well nourished, and in no acute distress. Patient is alert and oriented and without agitation. Skin: Well-healed surgical scar. Lumbosacral Exam: Inspection-deformity: Normal Well-healed surgical scar. Palpation-spinal tenderness: Normal Range of Motion Forward Flexion: 60 degrees Hyperextension: 25 degrees Right Lateral Bend: 25 degrees Left Lateral Bend: 25 degrees Lying Straight Leg Raise: Right: negative Left: negative Sitting Straight Leg Raise: Right: negative Left: negative Reverse Straight Leg Raise: Right: negative Left: negative Contralateral Straight Leg Raise: Right: negative Left: negative Babinski: Right: downgoing Left: downgoing Clonus: Right: 0 Left: 0 Toe Walking: Right: normal Left: normal Heel Walking: Right: normal Left: normal Brian's Maneuver: Right: negative Left: negative Fabere Test: Right: negative Left: negative Detailed Neurologic Exam Motor Exam: Gait: requires walkerataxic. Strength: Right Hamstrin-/5 Left Hamstrin-/5 Right Anterior Tibialis: 4-/5 Left Anterior Tibialis: 4-/5 Right Extensor Hallicus Longus: 4-/5 Left Extensor Hallicus Longus: 4-/5 Right Plantar Flexion: 4-/5 Left Plantar Flexion: 4-/5 Sensory Exam: Sensation to Pin: Grossly intact. Reflex Exam: Clonus: Clonus is absent. Diagnostic Interpretation From outside source Diagnostic Test: MRI C-spine Date of occurrence: 08/11/2017 Findings: Shows multilevel degenerative changes. There is no spinal cord compression or severe cervical stenosis. No evidence of myelomalacia. From outside source Diagnostic Test: CT myelogram L-spine Findings: I re-reviewed the CT myelogram. She has severe lumbar stenosis at L2-L3 adjacent to her previous L3-L4 and L4-L5 fusion. Assessment Severe lumbar stenosis L2-L3 adjacent to previous fusion. Plan Instructions for today's visit She is having progressive symptoms and weakness into her lower extremities. Her cervical MRI does not show severe stenosis. Her cardiology workup is pending. In order to definitively address her symptom s, I feel she is a candidate for lumbar decompression and fusion at L2-L3 with extension of her fusion proximally through a lateral and posterior approach. This is pending cardiology clearance. I explained that the goal of surgery is to improve quality of life. I explained that surgery should also be contemplated after nonoperative treatment measures have failed to relieve symptoms. Indication s, benefits, risks, and alternatives of operative intervention were discussed. Risks include, but are not limited to pain, bleeding, infection, damage to blood vessels or nerves, decreased neurologic fu nction, paralysis, spinal cord injury, dural tear, pseudarthrosis, hardware malposition, hardware failure, adjacent level degeneration, dysphagia, blood clots, deep venous thrombosis, hematoma, bowel/ b ladder injury or dysfunstion, stroke, heart attack, , and the need for further surgery. I also explained that the operation is unlikely to relieve 100 % of symptoms, and that the goal of the surgery is to improve the pain as much as possible. All questions were answered, the patient expressed understanding. She desires to proceed. Disposition: Return to clinic postop. Extracted from: Title: Consult Note Author: Sunday Friend MD Date: 08/27/17 1.Preop cardiovascular exam Type of surgery: L2-3 posterior spinal fusion, intermediate risk Surgery specificmedical issues: CVA, hypertension,hyperlipidemia Physical exam concerns: None Patient is unable to perform >4METs Activity due to unsteady gait and bilateral LE weakness Baseline EKG shows sinus bradycardia Outpatient alterations supervisor:Dr Mackenzie Hopkins who has cleared patient for surgery Revised cardiac risk index scoreis1 (CVA)consistent with 0.9% risk of major perioperativecardiac event Given patient's prior history of CVA and multiple TIAs suspect she has small vesselcerebrovascular disease andthuswould recommend to avoid perioperative hypotensionorsignificant fluct uations in blood pressures perioperatively to avoidcerebrovascularischemia. Risks and benefits of surgery discussed with patient 2.Lumbar stenosis Scheduled for L2-[address] fusion [address] Montez on 2017. 3.Hypertension Blood pressures uncontrolled in clinic with systolic blood pressures of 190. Patient reports that this is secondary towhitecoat hypertension. Patient and daughter report that at homeblood pre ssures usually runin the 140s systolictaken by her home health nurse. Patient and daughter will fax overblood pressure recordingsdone by home health. Continue ontelmisartan,minoxidil, me toprolol. Given patient'shistory of multipleTIAs and CVAwith avoid wide fluctuations ofsystolic blood pressure (perioperatively). 4.Hypothyroid Continue on levothyroxine 5.GERD (gastroesophageal reflux disease) Continue onomeprazole 6.Bradycardia Asymptomatic. Patient reports that this is chronic. 7.Bladder incontinence Most likely secondary to lumbar stenosis. Patient takingsolifenacin she is instructed to hold7 days prior to surgery to avoid any perioperative urinary retention. 8.Bowel incontinence Most likely secondary to lumbar stenosis as well. Patient uses depends 9.History of CVA (cerebrovascular accident) Has history of CVA [id number] and multiple subsequent TIAs with most recent TIA beingin April of this year. Suspect patient likely has small vessel diseaseintracranially.Takes plavixand s tatin. Patient instructed to holdPlavix on 09/08/2017. Would recommend to avoidperioperative hypotensionorsignificant fluctuations in blood pressures perioperatively to avoidcerebrovascularischemia. 10.Hyperlipidemia On atorvastatin 11.Anxiety and depression Continue on sertraline [facility] Hospitalist Consult Please [id number] any questions
[2017-12-20] MEDS ORDERED: NA CHLORIDE 0.9% 1,000 ML ONE (08:36)
[2017-12-20 08:56] LABS: Urine Blood NEGATIVE (NEG); Urine Glucose NEGATIVE (NEG); Urine Protein NEGATIVE (NEG); Urine pH 5.5 (5.0-7.0)
[2017-12-20 09:23] LABS: Absolute Lymphocytes (CBC) 1.2 K/uL (0.7-4.9); Absolute Monocytes 0.5 K/uL (0.1-1.3); Absolute Neutrophil 6.5 K/uL (1.8-8.0); Basophils % 0.5 % (0-1.3); Hematocrit 34.8 % (36.0-45.0); Lymphocytes % 14.8 % (15.3-44.8); MCH 26.7 pg (27.0-35.0); MCV 79.9 fL (80-100); MPV 9.2 fL (7.6-11.3); Monocytes % 5.8 % (3.3-12.3); RBC Red Blood Cell Count 4.36 M/uL (3.86-4.86)
[2017-12-20 09:26] LABS: Protime INR 1.04
[2017-12-20 09:32] LABS: Bilirubin Direct 0.2 mg/dL (0-0.2); CKMB Creatine Kinase MB 2.1 ng/mL (0.3-3.6); Protein, Total 7.5 g/dL (6.4-8.2); Troponin (Emerg Dept Use Only) 0.06 ng/mL (0.0-0.045)
--- NOTE | 2017-12-20 09:37 | RAD REPORT ---
EXAM DESCRIPTION: CT - Head Brain Wo Cont - 12/20/2017 8:49 am CLINICAL HISTORY: WEAKNESS<Reason For Exam>WEAKNESS Weakness, fall, head injury COMPARISON: Ct Stroke Brain Wo Cont dated 04/26/2017<Comparisons> TECHNIQUE: Axial 5 mm thick images of the head were obtained without IV contrast. All CT scans are performed using dose optimization technique as appropriate and may include automated exposure control or mA/KV adjustment according to patient size. FINDINGS: No intracranial hemorrhage, mass, edema or shift of mid-line structures. No acute infarcti on changes seen. Moderate severity atrophy and chronic ischemic change. Several small lacunar type in farctions are identified. Ventricles are in proportion to volume loss. Intracranial findings are not substantially different from comparison. Mastoid air cells and visualized portions of the paranasal sinuses are clear. No acute bony findings. IMPRESSION: No hemorrhage, edema or acute intracranial finding. Prominent atrophy and chronic ischemic change present along with multiple old lacunar type infarction s. Ventricles are in proportion. Chronic ischemic changes can mask nonhemorrhagic acute infarction. MR brain followup can be obtained if there is ongoing concern for acute ischemia.
--- NOTE | 2017-12-20 09:41 | RAD REPORT ---
EXAM DESCRIPTION: RAD - Chest Single View - 12/20/2017 9:25 am CLINICAL HISTORY: COUGH<Reason For Exam>COUGH COMPARISON: Chest Single View dated 04/26/2017; Chest Single View dated 08/05/2015; CHEST SINGLE VIEW d ated 09/19/2008; Pelvis dated 12/20/2017<Comparisons> TECHNIQUE: AP portable chest image was obtained 0848 hours . FINDINGS: No failure, infiltrate or mass. Lung markings are mildly prominent, unchanged from compari son. Heart and vasculature are normal. No measurable pleural effusion and no pneumothorax. No gross b leif abnormality seen. No acute aortic findings suspected. IMPRESSION: No acute cardiopulmonary process. No significant change from comparison.
--- NOTE | 2017-12-20 09:42 | RAD REPORT ---
EXAM DESCRIPTION: RAD - Pelvis - 12/20/2017 9:25 am CLINICAL HISTORY: PAIN<Reason For Exam>PAIN COMPARISON: PELVIS dated 11/24/2010<Comparisons> TECHNIQUE: AP imaging of the pelvis was obtained. FINDINGS: No fracture of the bony pelvis. Lumbar degenerative and postsurgical changes are present a nd separately detailed. SI joint and pubic symphysis degenerative changes present minimally progressi ve from the comparison study. Bilateral hip joint degenerative change seen with spurring along the ar ticular margins of the acetabulum and medial joint space narrowing. No AVN or focal femoral head abno rmalities. Hip joint degenerative change is minimally progressive. No suspicious soft tissue finding. Vascular calcifications are present. IMPRESSION: Degenerative pelvic changes as detailed, mildly progressive from 2010. No acute finding.
--- NOTE | 2017-12-20 09:52 | RAD REPORT ---
EXAM DESCRIPTION: RAD - Lumbar Spine 3 Views - 12/20/2017 9:25 am CLINICAL HISTORY: PAIN<Reason For Exam>PAIN COMPARISON: LUMBAR SPINE 3 VIEWS dated 11/24/2010<Comparisons> FINDINGS: A three-view lumbar spine examination was performed. Lumbar bodies are normal in height. T here is a right convex curvature to the lumbar spine that is similar to the comparison. T12-L4 AP ali gnment is normal. Approximately 3 mm of anterior subluxation L4 on L5 noted. This is similar to the p rior study. Patient has had intervening surgery. In 2010 the patient had pedicle screws and rods in place fixing the L4-5 level. That hardware has been replaced. There is now all 3 level hardware with pedicle screw s and rods spanning L2-L4. Heterotopic bone has formed around the posterior rods at L2 and L3. There is heterotopic bone around L4-5. Fusion material is present in the L4-5 disc space and the L2-3 disc space. Significant progressive endplate degenerative change inferior aspect L2 extends into the centr al canal. There is loss in disc height and mineralization of the disc space at L3-4. Significant face t degenerative change at L4-5 with poorly visualized foramina. L4-5 and L5-S1 foraminal encroachment is very likely present. No fracture or acute bony process seen. IMPRESSION: Postsurgical changes are present fusing L2-L4 with removal of the prior hardware fusing L4-5. No compression fracture or acute vertebral body finding. Slight subluxation of L4 relative to L5 has not changed or progressed since hardware removal. Prominent facet degenerative change and heterotopic bone present posteriorly. There is likely signifi cant L4-5 and L5-S1 foraminal bony encroachment. Evidence for significant central canal encroachment from endplate hypertrophy at L2-3.
--- NOTE | 2017-12-20 09:53 | RAD REPORT ---
EXAM DESCRIPTION: RAD - Femur Right - 12/20/2017 9:25 am CLINICAL HISTORY: PAIN<Reason For Exam>PAIN COMPARISON: No comparisons<Comparisons> FINDINGS: No fracture, dislocation or periosteal reaction noted. No AVN or focal femoral head abnorm ality. There is degenerative change along the acetabular rim and inferior articular margins spurring of the femur. Medial joint space narrowing is present. No joint effusion measurable at the knee. Ther e are significant degenerative changes at the knee joint. Patellofemoral joint space narrowing seen w ith marginal spurring. There are moderate marginal spurs at the narrowed medial compartment of the kn ee. Arterial calcifications are present. No significant soft tissue finding. No air or foreign body in th e soft tissues. IMPRESSION: Prominent degenerative changes at the hip joint and knee joint. No acute femur finding.
--- NOTE | 2017-12-20 10:37 | ER ---
Nurse's Notes [facility] Name: Alana Guevara Age: 82 yrs Sex: Female : 1935 Arrival Date: 12/20/2017 Time: 07:49 Bed 19 Private MD: out of town, doctor Diagnosis: Weakness;Fall due to bumping against object;Repeated falls;Pain in right leg;Essential (primary) hypertension;Urinary tract infection, site not specified Presentation: 12/20 07:53 Presenting complaint: Patient states: S/P back surgery, 2 months ago, 2 days ago, i hj noticed bruising on my R inner thigh, denies pain; denies trauma to the area, taking Plavix; states, fell recently;. Transition of care: patient was not received from another setting of care. Onset of symptoms was December 20, 2017. Risk Assessment: Do you want to hurt yourself or someone else? Patient reports no desire to harm self or others. Initial Sepsis Screen: Does the patient meet any 2 criteria? No. Patient's initial sepsis screen is negative. Does the patient have a suspected source of infection? No. Patient's initial sepsis screen is negative. Care prior to arrival: None. 07:53 Method Of Arrival: Ambulatory 07:53 Acuity: JAEL 4 hj Triage Assessment: 08:01 General: Appears in no apparent distress. uncomfortable, Behavior is calm, cooperative, hj appropriate for age. Pain: Denies pain. Historical: - Allergies: 08:01 meperidine HCl; hj 08:01 Nitrofurantoin Macrocrystal; hj - Home Meds: 08:01 minoxidil 1 tab Oral tab 2 tabs 2 times per day [Active]; Plavix 75 mg Oral tab 1 tab hj once daily [Active]; gabapentin 100 mg Oral cap 3 times per day [Active]; omeprazole 40 mg Oral cpDR 1 cap once daily [Active]; trazodone 100 mg Oral tab 1 tab nightly [Active]; metoprolol tartrate 50 mg Oral tab 1 tab 2 times per day [Active]; meloxicam 15 mg Oral tab 1 tab once daily [Active]; atorvastatin 40 mg Oral tab 1 tab once daily [Active]; Vitamin D Oral 50,000 unit weekly [Active]; Vesicare 10 mg oral tab 1 tab once daily [Active]; sertraline 100 mg Oral tab 1.5 tabs once daily [Active]; loratadine 10 mg Oral tab 1 tab once daily [Active]; Synthroid 100 mcg Oral tab once daily [Active]; telmisartan 80 mg Oral tab 1 tab once daily [Active]; - PMHx: 08:01 CVA; High Cholesterol; Hypertension; Hypothyroidism; TIA; hj - PSHx: 08:01 Knee surgery; back; bladder; Appendectomy; Hysterectomy; hj - Immunization history:: Adult Immunizations up to date. - Social history:: Smoking status: Patient/guardian denies using tobacco, Patient/guardian denies using alcohol. - Ebola Screening: : Patient negative for fever greater than or equal to 101.5 degrees Fahrenheit, and additional compatible Ebola Virus Disease symptoms Patient denies exposure to infectious person Patient denies travel to an Ebola-affected area in the 21 days before illness onset. - Family history:: not pertinent. Screenin:01 Abuse screen: Denies threats or abuse. Denies injuries from another. Nutritional hj screening: No deficits noted. Tuberculosis screening: No symptoms or risk factors identified. Fall Risk None identified. Assessment: 08:20 General: Appears in no apparent distress. Behavior is calm, cooperative. Pain: iw Complains of pain in right leg. 08:20 Neuro: Level of Consciousness is awake, alert, obeys commands, Moves all extremities. iw Cardiovascular: Denies chest pain, shortness of breath, Patient's skin is warm and dry. Respiratory: Airway is patent Respiratory effort is even, unlabored, Breath sounds are clear bilaterally. GI: Abdomen is flat, non-distended. Derm: Skin is thin, Skin is normal, Bruising that is dark purple, on right hamstring. 10:04 Reassessment: Patient appears in no apparent distress at this time. Patient and/or iw family updated on plan of care and expected duration. Pain level reassessed. Patient is alert, oriented x 3, equal unlabored respirations, skin warm/dry/pink. 11:12 Reassessment: Patient appears in no apparent distress at this time. Patient and/or iw family updated on plan of care and expected duration. Pain level reassessed. Patient is alert, oriented x 3, equal unlabored respirations, skin warm/dry/pink. Vital Signs: 08:02 BP 172 / 107; Pulse 97; Resp 18; Temp 98.6(TE); Pulse Ox 100% on R/A; Weight 70.31 kg; hj Height 5 ft. 8 in. (172.72 cm); Pain 0/10; 09:55 BP 190 / 59; Pulse 50; Resp 16; Pulse Ox 98% on R/A; Pain 0/10; iw 11:12 BP 171 / 54; Pulse 51; Resp 16; Pulse Ox 98% on R/A; iw 12:03 BP 211 / 65; Pulse 52; Resp 16; Pulse Ox 98% on R/A; iw 12:12 BP 162 / 75; Pulse 52; Resp 16; Pulse Ox 98% on R/A; Pain 0/10; iw 08:02 Body Mass Index 23.57 (70.31 kg, 172.72 cm) ED Course: 07:49 Patient arrived in ED. as 07:50 out of town, doctor is Private Physician. as 07:56 Triage completed. hj 08:01 Arm band placed on left wrist. hj 08:02 Patient has correct armband on for positive identification. Bed in low position. Call light in reach. Side rails up X 1. Adult w/ patient. 08:04 Wiliam Chahal MD is Attending Physician. audra 08:05 Dana Garcia, SHAQUILLE is Primary Nurse. iw 08:40 Initial lab(s) drawn, by mt, sent to lab. Inserted saline lock: 20 gauge in right iw antecubital area, using aseptic technique. Blood collected. 08:48 CT completed. Patient tolerated procedure well. Patient moved to CT via wheelchair. Patient moved to radiology Patient moved back from CT. 08:48 CT Head Brain wo Cont In Process Unspecified. EDMS 09:25 XRAY Chest (1 view) In Process Unspecified. EDMS 09:25 Pelvis XRAY In Process Unspecified. EDMS 09:25 Femur Right XRAY In Process Unspecified. EDMS 09:25 Lumbar Spine (3 Views) XRAY In Process Unspecified. EDMS 10:09 EKG done, by ED staff, reviewed by Wiliam Chahal MD. mh5 10:35 Kavya Mendosa MD is Hospitalizing Provider. audra 11:11 US Extremity Venous W Compression Akash In Process Unspecified. EDMS 11:12 Ultrasound completed. Patient tolerated well. Note: us done bedside in er. lc3 12:15 No provider procedures requiring assistance completed. Patient did not have IV access iw during this emergency room visit. Administered Medications: 09:46 Drug: NS 0.9% 500 ml Route: IV; Rate: bolus; Site: right antecubital; iw 10:08 Drug: NS 0.9% 1000 ml Route: IV; Rate: 125 ml/hr; Site: right antecubital; iw 11:11 Drug: Aspirin 162 mg Route: PO; iw 11:11 Drug: Valsartan 160 mg Route: PO; iw 11:11 Drug: morphine 2 mg Route: IVP; Site: right antecubital; iw 11:12 Drug: Zofran 4 mg Route: IVP; Site: right antecubital; iw 11:32 Drug: Lovenox 1 mg/kg Route: Sub-Q; Site: right upper abdomen; iw 11:32 Drug: Rocephin - (cefTRIAXone) 1 grams Route: IVPB; Infused Over: 30 mins; Site: right iw antecubital; 12:03 Drug: hydrALAZINE 10 mg Route: PO; iw 12:03 Drug: hydrALAZINE 10 mg Route: IV; Rate: bolus; Site: right antecubital; iw Outcome: 10:37 Decision to Hospitalize by Provider. audra 12:14 Admitted to Tele accompanied by tech, via stretcher, room 408, Report called to mecca smith RN 12:14 Condition: good 12:14 Discharge instructions given to patient, family, Instructed on the need for admit, Demonstrated understanding of instructions. 12:41 Patient left the ED. iw Signatures: Dispatcher [employer] EDWiliam Barron MD MD cha Jones, Susan sj Martinez, Amelia as Williams, Irene, Jamie Unger RN, RN RN hj Cunningham, Laulita lc3 Martinez, Maria [facility] Corrections: (The following items were deleted from the chart) 08:20 07:53 Presenting complaint: Patient states: S/P back surgery, 2 months ago, 2 days ago, hj i noticed bruising on my R inner thigh, denies pain; denies trauma to the area, taking Plavix; hj 16:19 08:20 Pain: Complains of pain in right leg iw mecca
--- NOTE | 2017-12-20 10:37 | EDPHYS ---
Physician Documentation [facility] Name: Alana Guevara Age: 82 yrs Sex: Female : 1935 Arrival Date: 12/20/2017 Time: 07:49 Bed 19 Private MD: out of town, doctor ED Physician Wiliam Chahal HPI: 12/20 08:27 This 82 yrs old Female presents to ER via Ambulatory with complaints of Groin audra Pain, Leg Pain - Bruising. 08:27 The patient presents with decreased range of motion, pain, that is acute. The audra complaints affect the right hip, lateral aspect of right thigh, right gluteal fold, right hamstring, medial aspect of right thigh and right quadriceps. Context: The problem was sustained at home, resulted from the patient falling, the patient can partially bear weight. Onset: The symptoms/episode began/occurred 2 week(s) ago. Modifying factors: The symptoms are alleviated by elevating leg, remaining still, the symptoms are aggravated by movement, weight bearing. Associated signs and symptoms: The patient has no apparent associated signs or symptoms. Severity of symptoms: At their worst the symptoms were mild, moderate, in the emergency department the symptoms are unchanged. The patient has not experienced similar symptoms in the past. Historical: - Allergies: 08:01 meperidine HCl; hj 08:01 Nitrofurantoin Macrocrystal; hj - Home Meds: 08:01 minoxidil 1 tab Oral tab 2 tabs 2 times per day [Active]; Plavix 75 mg Oral tab 1 tab hj once daily [Active]; gabapentin 100 mg Oral cap 3 times per day [Active]; omeprazole 40 mg Oral cpDR 1 cap once daily [Active]; trazodone 100 mg Oral tab 1 tab nightly [Active]; metoprolol tartrate 50 mg Oral tab 1 tab 2 times per day [Active]; meloxicam 15 mg Oral tab 1 tab once daily [Active]; atorvastatin 40 mg Oral tab 1 tab once daily [Active]; Vitamin D Oral 50,000 unit weekly [Active]; Vesicare 10 mg oral tab 1 tab once daily [Active]; sertraline 100 mg Oral tab 1.5 tabs once daily [Active]; loratadine 10 mg Oral tab 1 tab once daily [Active]; Synthroid 100 mcg Oral tab once daily [Active]; telmisartan 80 mg Oral tab 1 tab once daily [Active]; - PMHx: 08:01 CVA; High Cholesterol; Hypertension; Hypothyroidism; TIA; hj - PSHx: 08:01 Knee surgery; back; bladder; Appendectomy; Hysterectomy; hj - Immunization history:: Adult Immunizations up to date. - Social history:: Smoking status: Patient/guardian denies using tobacco, Patient/guardian denies using alcohol. - Ebola Screening: : Patient negative for fever greater than or equal to 101.5 degrees Fahrenheit, and additional compatible Ebola Virus Disease symptoms Patient denies exposure to infectious person Patient denies travel to an Ebola-affected area in the 21 days before illness onset. - Family history:: not pertinent. ROS: 08:27 Constitutional: Negative for fever, chills, and weight loss, Eyes: Negative for injury, audra pain, redness, and discharge, ENT: Negative for injury, pain, and discharge, Neck: Negative for injury, pain, and swelling, Cardiovascular: Negative for chest pain, palpitations, and edema, Respiratory: Negative for shortness of breath, cough, wheezing, and pleuritic chest pain, Abdomen/GI: Negative for abdominal pain, nausea, vomiting, diarrhea, and constipation, Back: Negative for injury and pain, : Negative for injury, bleeding, discharge, and swelling, Neuro: Negative for headache, weakness, numbness, tingling, and seizure, Psych: Negative for depression, anxiety, suicide ideation, homicidal ideation, and hallucinations, Allergy/Immunology: Negative for hives, rash, and allergies, Endocrine: Negative for neck swelling, polydipsia, polyuria, polyphagia, and marked weight changes, Hematologic/Lymphatic: Negative for swollen nodes, abnormal bleeding, and unusual bruising. 08:27 MS/extremity: Positive for decreased range of motion, pain, tenderness, of the right hamstring, medial aspect of right thigh and medial aspect of right knee. Exam: 08:27 Constitutional: This is a well developed, well nourished patient who is awake, alert, audra and in no acute distress. Head/Face: Normocephalic, atraumatic. Eyes: Pupils equal round and reactive to light, extra-ocular motions intact. Lids and lashes normal. Conjunctiva and sclera are non-icteric and not injected. Cornea within normal limits. Periorbital areas with no swelling, redness, or edema. ENT: Nares patent. No nasal discharge, no septal abnormalities noted. Tympanic membranes are normal and external auditory canals are clear. Oropharynx with no redness, swelling, or masses, exudates, or evidence of obstruction, uvula midline. Mucous membranes moist. Neck: Trachea midline, no thyromegaly or masses palpated, and no cervical lymphadenopathy. Supple, full range of motion without nuchal rigidity, or vertebral point tenderness. No Meningismus. Chest/axilla: Normal chest wall appearance and motion. Nontender with no deformity. No lesions are appreciated. Cardiovascular: Regular rate and rhythm with a normal S1 and S2. No gallops, murmurs, or rubs. Normal PMI, no JVD. No pulse deficits. Respiratory: Lungs have equal breath sounds bilaterally, clear to auscultation and percussion. No rales, rhonchi or wheezes noted. No increased work of breathing, no retractions or nasal flaring. Abdomen/GI: Soft, non-tender, with normal bowel sounds. No distension or tympany. No guarding or rebound. No evidence of tenderness throughout. Back: No spinal tenderness. No costovertebral tenderness. Full range of motion. Female : Normal external genitalia. Skin: Warm, dry with normal turgor. Normal color with no rashes, no lesions, and no evidence of cellulitis. Neuro: Awake and alert, GCS 15, oriented to person, place, time, and situation. Cranial nerves II-XII grossly intact. Motor strength 5/5 in all extremities. Sensory grossly intact. Cerebellar exam normal. Normal gait. Psych: Awake, alert, with orientation to person, place and time. Behavior, mood, and affect are within normal limits. 08:27 Musculoskeletal/extremity: Extremities: noted in the medial aspect of right thigh and medial aspect of right knee: decreased ROM, ecchymosis, pain. Vital Signs: 08:02 BP 172 / 107; Pulse 97; Resp 18; Temp 98.6(TE); Pulse Ox 100% on R/A; Weight 70.31 kg; hj Height 5 ft. 8 in. (172.72 cm); Pain 0/10; 09:55 BP 190 / 59; Pulse 50; Resp 16; Pulse Ox 98% on R/A; Pain 0/10; iw 11:12 BP 171 / 54; Pulse 51; Resp 16; Pulse Ox 98% on R/A; iw 12:03 BP 211 / 65; Pulse 52; Resp 16; Pulse Ox 98% on R/A; iw 12:12 BP 162 / 75; Pulse 52; Resp 16; Pulse Ox 98% on R/A; Pain 0/10; iw 08:02 Body Mass Index 23.57 (70.31 kg, 172.72 cm) hj MDM: 08:04 Patient medically screened. [facility] 08:29 Data reviewed: vital signs, nurses notes, lab test result(s), EKG, radiologic studies, audra plain films. 12/20 08:26 Order name: Basic Metabolic Panel; Complete Time: 10:28 [facility] 12/20 08:26 Order name: CBC with Diff; Complete Time: 10:28 [facility] 12/20 08:26 Order name: Ckmb; Complete Time: 10:28 [facility] 12/20 08:26 Order name: CPK; Complete Time: 10:28 [facility] 12/20 08:26 Order name: LFT's; Complete Time: 10:28 [facility] 12/20 08:26 Order name: Magnesium; Complete Time: 10:28 [facility] 12/20 08:26 Order name: NT PRO-BNP; Complete Time: 10:28 [facility] 12/20 08:26 Order name: PT-INR; Complete Time: 10:28 [facility] 12/20 08:26 Order name: Ptt, Activated; Complete Time: 10:28 [facility] 12/20 08:26 Order name: Troponin (emerg Dept Use Only); Complete Time: 10:28 [facility] 12/20 08:26 Order name: XRAY Chest (1 view); Complete Time: 10:28 [facility] 12/20 08:26 Order name: Pelvis XRAY; Complete Time: 10:28 [facility] 12/20 08:26 Order name: Urine Culture [facility] 12/20 08:47 Order name: Urine Dipstick--Ancillary (enter results); Complete Time: 10:28 em1 12/20 08:26 Order name: EKG; Complete Time: 08:26 [facility] 12/20 08:26 Order name: Femur Right XRAY; Complete Time: 10:28 [facility] 12/20 08:26 Order name: US Extremity Venous W Compression Akash [facility] 12/20 08:27 Order name: Lumbar Spine (3 Views) XRAY; Complete Time: 10:28 [facility] 12/20 08:30 Order name: CT Head Brain wo Cont; Complete Time: 10:28 [facility] 12/20 10:56 Order name: CONS Physician Consult EDMS 12/20 08:26 Order name: Cardiac monitoring; Complete Time: 09:00 [facility] 12/20 08:26 Order name: EKG - Nurse/Tech; Complete Time: 10:04 [facility] 12/20 08:26 Order name: IV Saline Lock; Complete Time: 09:00 [facility] 12/20 08:26 Order name: Labs collected and sent; Complete Time: 08:59 [facility] 12/20 08:26 Order name: O2 Per Protocol; Complete Time: 09:00 [facility] 12/20 08:26 Order name: O2 Sat Monitoring; Complete Time: 09:00 [facility] 12/20 08:26 Order name: Urine Dipstick-Ancillary (obtain specimen); Complete Time: 08:45 [facility] Administered Medications: 09:46 Drug: NS 0.9% 500 ml Route: IV; Rate: bolus; Site: right antecubital; iw 10:08 Drug: NS 0.9% 1000 ml Route: IV; Rate: 125 ml/hr; Site: right antecubital; iw 11:11 Drug: Aspirin 162 mg Route: PO; iw 11:11 Drug: Valsartan 160 mg Route: PO; iw 11:11 Drug: morphine 2 mg Route: IVP; Site: right antecubital; iw 11:12 Drug: Zofran 4 mg Route: IVP; Site: right antecubital; iw 11:32 Drug: Lovenox 1 mg/kg Route: Sub-Q; Site: right upper abdomen; iw 11:32 Drug: Rocephin - (cefTRIAXone) 1 grams Route: IVPB; Infused Over: 30 mins; Site: right iw antecubital; 12:03 Drug: hydrALAZINE 10 mg Route: PO; iw 12:03 Drug: hydrALAZINE 10 mg Route: IV; Rate: bolus; Site: right antecubital; iw Disposition: 12/20/17 10:37 Hospitalization ordered by Kavya Mendosa for Observation. Preliminary diagnosis are Weakness, Fall due to bumping against object, Repeated falls, Pain in right leg, Essential (primary) hypertension, Urinary tract infection, site not specified. - Bed requested for Telemetry/MedSurg (observation). - Status is Observation. iw - Condition is Fair. - Problem is new. - Symptoms have improved. UTI on Admission? Yes Signatures: Dispatcher [employer] EDWiliam Barron MD MD cha Williams, Irene, RN RN iw Deshawn Tucker em1 Jamie Cortes RN RN Corrections: (The following items were deleted from the chart) 10:55 10:37 Hospitalization Ordered by Kavya Mendosa MD for Observation. Preliminary audra diagnosis is Weakness; Fall due to bumping against object; Repeated falls; Pain in right leg; Essential (primary) hypertension. Bed requested for Telemetry/MedSurg (observation). Status is Observation. Condition is Fair. Problem is new. Symptoms have improved. UTI on Admission? No. [facility] 11:18 10:55 12/20/2017 10:37 Hospitalization Ordered by Kavya Mendosa MD for Observation. em1 Preliminary diagnosis is Weakness; Fall due to bumping against object; Repeated falls; Pain in right leg; Essential (primary) hypertension; Urinary tract infection, site not specified. Bed requested for Telemetry/MedSurg (observation). Status is Observation. Condition is Fair. Problem is new. Symptoms have improved. UTI on Admission? Yes. audra 12:41 11:18 12/20/2017 10:37 Hospitalization Ordered by Kavya Mendosa MD for Observation. iw Preliminary diagnosis is Weakness; Fall due to bumping against object; Repeated falls; Pain in right leg; Essential (primary) hypertension; Urinary tract infection, site not specified. Bed requested for Telemetry/MedSurg (observation). Status is Observation. Condition is Fair. Problem is new. Symptoms have improved. UTI on Admission? Yes. em1
[2017-12-20] MEDS ORDERED: ASPIRIN 81 MG CHEWABLE TABLET ONE (10:57)
[2017-12-20] MEDS ORDERED: VALSARTAN 80 MG TAB ONE (10:57)
[2017-12-20] MEDS ORDERED: MORPHINE 4 MG/ML SYR ONE (10:58)
[2017-12-20] MEDS ORDERED: ONDANSETRON 4 MG/2 ML VIAL ONE (10:58)
[2017-12-20] MEDS ORDERED: ENOXAPARIN 80 MG/0.8 ML SQ ONE (10:58)
[2017-12-20] MEDS ORDERED: CEFTRIAXONE/SWI 1gm 1 GM/10 ML SYR ONE (11:22)
--- NOTE | 2017-12-20 11:53 | RAD REPORT ---
EXAM DESCRIPTION: US - Extrem Venous W Compress Akash - 12/20/2017 11:22 am CLINICAL HISTORY: PAIN<Reason For Exam>PAIN COMPARISON: EXT VENOUS UNI LTD dated 09/19/2008 TECHNIQUE: Real-time sonographic evaluation of the right lower extremity deep venous systems was per formed. FINDINGS: Normal compressibility, flow augmentation, phasic flow and spontaneous flow are identified in the right lower extremity common femoral, superficial femoral, popliteal and posterior tibial vei ns. No intraluminal filling defects seen. IMPRESSION: No DVT in the right lower extremity.
[2017-12-20] MEDS ORDERED: HYDRALAZINE HCL 20 MG/ML VIAL ONE (11:59)
[2017-12-20] MEDS ORDERED: HYDRALAZINE HCL 10 MG TABLET ONE (11:59)
[2017-12-20] MEDS ORDERED: ONDANSETRON 4 MG/2 ML VIAL IV PRN (12:49)
[2017-12-20] MEDS ORDERED: ACETAMINOPHEN 500 MG TAB PO PRN (12:49)
[2017-12-20] MEDS: NA CHLORIDE 0.9% 1,000 ML IV SCH ×3 (12:49→23:19)
[2017-12-20 13:44] VITALS: BMI 23.6
[2017-12-20 13:45] LABS: Troponin I 0.05 ng/mL (0.0-0.045)
[2017-12-20 13:47] LABS: Thyroid Stimulating Hormone 6.49 uIU/mL (0.360-3.740)
--- NOTE | 2017-12-20 15:21 | P.HP ---
Certification for Inpatient Patient admitted to: Observation With expected LOS: <2 Midnights Patient will require the following post-hospital care: None Practitioner: I am a practitioner with admitting privileges, knowledge of patient current condition, hospital course, and medical plan of care. Services: Services provided to patient in accordance with Admission requirements found in Title 42 Section 412.3 of the Code of Federal Regulations Patient History Date of Service: 12/20/17 Primary Care Provider: Dr Harding Reason for admission: Falls History of Present Illness: 82-year-old female with significant past medical history of hypertension, hypothyroidism, previous CVA who presented to the ED having multiple falls at the house. Patient stated that for the past month and a half she has been having frequent falls at the house and recent and started having some right- sided muscle pain in her groin area. Patient stated that her pain initially started between her gluteal region and progressed down to her leg and thus decided to come to the ER. At bedside patient's daughter stated that she has been having similar episodes in the past now becoming hard for her to ambulate and she has been having more generalized weakness over the past month and a half. Denies having any fever chills nausea vomiting abdominal pain or any other associated symptoms at this time. Allergies meperidine HCl [From Demerol] Allergy (Intermediate, Verified 04/21/13 02:14) Hives/Rash nitrofurantoin macrocrystal [From Macrodantin] Allergy (Intermediate, Verified 04/21/13 02:14) Rash Home Medications: Cholecalciferol (Vitamin D3) [Vitamin D 5,000 IU Cap*] 50,000 unit PO EVERY 7TH DAY 04/21/13 Levothyroxine [Synthroid*] 100 mcg PO DAILY 04/21/13 Loratadine [Claritin*] 10 mg PO DAILY 04/21/13 Sertraline [Zoloft*] 100 mg PO DAILY 04/21/13 Solifenacin Succinate [Vesicare] 10 mg PO DAILY 04/21/13 Telmisartan [Micardis] 80 mg PO DAILY 04/21/13 Atorvastatin Calcium 1 tab PO DAILY 08/05/15 Gabapentin [Neurontin*] 100 mg PO TID 04/26/17 Omeprazole [Prilosec] 40 mg PO DAILY 04/26/17 Trazodone [Desyrel*] 100 mg PO BEDTIME 04/26/17 Metoprolol Succinate [Toprol Xl*] 1 tab PO BID 04/27/17 Clopidogrel Bisulfate [Plavix*] 75 mg PO DAILY #30 tablet 04/28/17 Minoxidil [Loniten] 2.5 mg PO BID 04/28/17 Meloxicam 15 mg PO DAILY 12/20/17 - Past Medical/Surgical History Has patient received pneumonia vaccine in the past: Yes Diabetic: No -: CVA in 1999 -: hypertension -: hypothyroidism -: hyperlipidemia -: carpal tunnel syndrome -: UTI -: TIA -: knee sx -: back sx x2 -: hysterectomy -: Appendectomy - Family History Father -: Heart disease, Lung disease Mother -: Hypertension, Stroke Brother -: Lung disease Notes: aneurysm Sister -: Diabetes Notes: obesity. brain tumor - Social History Smoking Status: Former smoker Alcohol use: No CD- Drugs: No Caffeine use: Yes Place of Residence: Home Review of Systems 10-point ROS is otherwise unremarkable Physical Examination - Vital Signs Temperature: 98.3 F Blood Pressure: 162/58 Pulse: 58 Respirations: 16 Pulse Ox (%): 98 - Physical Exam General: Alert, Oriented x3 HEENT: Atraumatic, PERRLA, Mucous membr. moist/pink, EOMI, Sclerae nonicteric Neck: Supple, 2+ carotid pulse no bruit, No LAD, Without JVD or thyroid abnormality Respiratory: Clear to auscultation bilaterally, Normal air movement Cardiovascular: Regular rate/rhythm, Normal S1 S2 Gastrointestinal: Normal bowel sounds, No tenderness Musculoskeletal: No tenderness Integumentary: Other (Bruising of the right gluteal area extending all the way down to the dorsal high along with the lower leg area noted. Area marked with a black sharpie.) Neurological: Normal speech, Normal strength at 5/5 x4 extr, Normal tone, Normal affect Lymphatics: No axilla or inguinal lymphadenopathy - Studies Laboratory Data (last 24 hrs) 12/20/17 08:40: PT 12.3, INR 1.04, APTT 25.5 12/20/17 08:40: WBC 8.4, Hgb 11.6 L, Hct 34.8 L, Plt Count 193 12/20/17 08:40: Sodium 143, Potassium 4.0, BUN 17, Creatinine 0.90, Glucose 110 H, Magnesium 2.0, Total Bilirubin 1.0, AST 30, ALT 22, Alkaline Phosphatase 81 Assessment and Plan - Problems (Diagnosis) (1) Multiple falls Current Visit: Yes Status: Acute Plan: Multiple falls over the past couple of months. Most likely secondary to generalized weakness and dehydration. Patient recently had a back surgery done as well which could be causing her to have generalized weakness in bilateral lower extremity. -physical therapy has been consulted will appreciate evaluation and wait for recommendations at this time -fall precautions given at this time. -case management consult for home health arrangement. (2) Elevated troponin Current Visit: Yes Status: Acute Plan: Elevated troponin x1 in the ER. Most likely secondary to fall. Will continue to trend the troponins. If no improvement and then will consult cardiology. Patient denies having any chest pain at this time as well. (3) H/O: CVA (cerebrovascular accident) Current Visit: No Status: Chronic (4) HTN (hypertension) Onset Date: 04/27/17 Current Visit: No Status: Chronic Qualifiers: Hypertension type: essential hypertension Qualified Code(s): I10 - Essential (primary) hypertension (5) Hyperlipidemia Onset Date: 04/27/17 Current Visit: No Status: Chronic Qualifiers: Hyperlipidemia type: mixed hyperlipidemia Qualified Code(s): E78.2 - Mixed hyperlipidemia (6) Hypothyroid Onset Date: 04/27/17 Current Visit: No Status: Chronic Qualifiers: Hypothyroidism type: acquired Qualified Code(s): E03.9 - Hypothyroidism, unspecified Discharge Plan: Home Plan to discharge in: 48 Hours - Advance Directives Does patient have a Living Will: No Does patient have a Durable POA for Healthcare: Yes - Code Status/Comfort Care Code Status Assessed: Yes Critical Care: No
[2017-12-20] MEDS: GABAPENTIN 100 MG CAP PO SCH ×2 (16:53→21:21)
[2017-12-20] MEDS ORDERED: TRAZODONE 50 MG TABLET PO SCH (21:00)
[2017-12-20] MEDS: ATORVASTATIN 40 MG TAB PO SCH (21:21)
[2017-12-20] MEDS: METOPROLOL XL 50 MG TAB PO SCH (21:21)
[2017-12-20] MEDS: MINOXIDIL 2.5 MG TAB PO SCH (21:21)
[2017-12-20] MEDS: TRAZODONE 50 MG TABLET PO PRN (23:19)
[2017-12-21] MEDS: LEVOTHYROXINE SOD 0.1 MG TAB PO SCH (05:06)
[2017-12-21 06:28] LABS: Absolute Monocytes 0.3 K/uL (0.1-1.3); Basophils % 0.5 % (0-1.3); Hematocrit 29.4 % (36.0-45.0); Lymphocytes % 22.4 % (15.3-44.8); MCV 79.6 fL (80-100); MPV 9.3 fL (7.6-11.3); Monocytes % 7.4 % (3.3-12.3); RBC Red Blood Cell Count 3.69 M/uL (3.86-4.86)
[2017-12-21 06:47] LABS: Albumin 2.9 g/dL (3.4-5.0); Bilirubin Total 0.6 mg/dL (0.2-1.0); Potassium 3.9 mmol/L (3.5-5.1); Protein, Total 5.7 g/dL (6.4-8.2); Troponin I 0.05 ng/mL (0.0-0.045)
[2017-12-21] MEDS: VALSARTAN 80 MG TAB PO SCH (08:33)
[2017-12-21] MEDS: SOLIFENACIN SUCCINATE 10 MG PO SCH (08:33)
[2017-12-21] MEDS: LORATADINE 10 MG TAB PO SCH (08:33)
[2017-12-21] MEDS: GABAPENTIN 100 MG CAP PO SCH ×3 (08:34→20:40)
[2017-12-21] MEDS: SERTRALINE HCL 100 MG TAB PO SCH (08:34)
[2017-12-21] MEDS: METOPROLOL XL 50 MG TAB PO SCH ×2 (08:35→20:40)
[2017-12-21] MEDS: CLOPIDOGREL 75 MG TABLET PO SCH (08:35)
[2017-12-21] MEDS ORDERED: TELMISARTAN 80 MG PO SCH (09:00)
[2017-12-21] MEDS ORDERED: VITAMIN D 5,000 UNIT CAP PO SCH (09:00)
[2017-12-21] MEDS: MINOXIDIL 2.5 MG TAB PO SCH ×2 (09:59→20:40)
--- NOTE | 2017-12-21 11:46 | P.PN ---
Subjective Date of Service: 12/21/17 Primary Care Provider: Dr Harding Chief Complaint: Falls Pt seen and examined at bedside. Chart Reviewed. Case DW with PT. Currently Pt has not been seen by PT. -This AM still c/o of weakness. Must more alert today than yesterday Review of Systems 10-point ROS is otherwise unremarkable Physical Examination - Vital Signs Temperature: 98.5 F Blood Pressure: 220/85 Pulse: 89 Respirations: 18 Pulse Ox (%): 97 - Physical Exam General: Alert, In no apparent distress HEENT: Atraumatic, PERRLA, EOMI Neck: Supple, JVD not distended Respiratory: Clear to auscultation bilaterally, Normal air movement Cardiovascular: Regular rate/rhythm, Normal S1 S2 Gastrointestinal: Normal bowel sounds, No tenderness Musculoskeletal: Other (Burising On the right dorsal thigh which extended to leg improving significantly. ) Integumentary: No rashes Neurological: Normal speech, Normal tone, Normal affect Lymphatics: No axilla or inguinal lymphadenopathy - Studies Medications List Reviewed: Yes Assessment & Plan - Problems (Diagnosis) (1) Multiple falls Current Visit: Yes Status: Acute Plan: Multiple falls over the past couple of months. Most likely secondary to generalized weakness and dehydration. Patient recently had a back surgery done as well which could be causing her to have generalized weakness in bilateral lower extremity. -physical therapy has been consulted will appreciate evaluation and wait for recommendations at this time -fall precautions given at this time. -case management consult for home health arrangement. (2) Elevated troponin Current Visit: Yes Status: Acute Plan: Elevated troponin x1 in the ER. Most likely secondary to fall. -Troponin trending down today -No Chest Pain (3) H/O: CVA (cerebrovascular accident) Current Visit: No Status: Chronic (4) HTN (hypertension) Onset Date: 04/27/17 Current Visit: No Status: Chronic Qualifiers: Hypertension type: essential hypertension Qualified Code(s): I10 - Essential (primary) hypertension (5) Hyperlipidemia Onset Date: 04/27/17 Current Visit: No Status: Chronic Qualifiers: Hyperlipidemia type: mixed hyperlipidemia Qualified Code(s): E78.2 - Mixed hyperlipidemia (6) Hypothyroid Onset Date: 04/27/17 Current Visit: No Status: Chronic Qualifiers: Hypothyroidism type: acquired Qualified Code(s): E03.9 - Hypothyroidism, unspecified Discharge Plan: Home Plan to discharge in: 48 Hours - Code Status/Comfort Care Code Status Assessed: Yes Critical Care: No
--- NOTE | 2017-12-21 12:23 | EKG ---
Test Date: 2017-12-20 Test Time: 09:31:47 Visual Journalist: SARABJIT MEASUREMENT RESULTS: Intervals: Rate: 48 MI: 154 QRSD: 112 QT: 518 QTc: 462 [place]: P: 62 MI: 154 QRS: -32 T: 33 INTERPRETIVE STATEMENTS: Marked sinus bradycardia Left axis deviation Voltage criteria for left ventricular hypertrophy Abnormal ECG Compared to ECG 04/26/2017 14:14:35 Left-axis deviation now present Left anterior fascicular block no longer present Electronically Signed On 12-21-17 12:19:25 CDT by Duarte Oden
[2017-12-21] MEDS ORDERED: POTASSIUM CL SA 10 MEQ TAB PO ONE (13:50)
[2017-12-21] MEDS: NA CHLORIDE 0.9% 1,000 ML IV SCH (14:01)
[2017-12-21] MEDS ORDERED: HYDRALAZINE HCL 20 MG/ML VIAL IV ONE (16:49)
[2017-12-21] MEDS: ATORVASTATIN 40 MG TAB PO SCH (20:40)
[2017-12-21] MEDS: TRAZODONE 50 MG TABLET PO PRN (22:37)
[2017-12-22] MEDS: HYDRALAZINE HCL 20 MG/ML VIAL IV PRN ×2 (04:37→12:22)
[2017-12-22] MEDS: LEVOTHYROXINE SOD 0.1 MG TAB PO SCH (05:01)
[2017-12-22 06:12] LABS: Absolute Lymphocytes (CBC) 1.2 K/uL (0.7-4.9); Absolute Monocytes 0.5 K/uL (0.1-1.3); Absolute Neutrophil 4.1 K/uL (1.8-8.0); Basophils % 0.4 % (0-1.3); Eosinophils % 2.9 % (0-4.4); Hematocrit 31.6 % (36.0-45.0); Lymphocytes % 19.7 % (15.3-44.8); MCH 26.6 pg (27.0-35.0); MCV 79.2 fL (80-100); MPV 8.8 fL (7.6-11.3); RBC Red Blood Cell Count 3.99 M/uL (3.86-4.86)
[2017-12-22 06:16] LABS: Albumin 3.2 g/dL (3.4-5.0); Bilirubin Total 0.7 mg/dL (0.2-1.0); Protein, Total 6.3 g/dL (6.4-8.2)
[2017-12-22] MEDS: METOPROLOL XL 50 MG TAB PO SCH ×2 (08:53→20:50)
[2017-12-22] MEDS: VALSARTAN 80 MG TAB PO SCH (08:54)
[2017-12-22] MEDS: CLOPIDOGREL 75 MG TABLET PO SCH (08:54)
[2017-12-22] MEDS: SERTRALINE HCL 100 MG TAB PO SCH (08:54)
[2017-12-22] MEDS: LORATADINE 10 MG TAB PO SCH (08:54)
[2017-12-22] MEDS: GABAPENTIN 100 MG CAP PO SCH ×3 (08:54→20:51)
[2017-12-22] MEDS: MINOXIDIL 2.5 MG TAB PO SCH ×2 (08:55→20:51)
[2017-12-22] MEDS: SOLIFENACIN SUCCINATE 10 MG PO SCH (08:55)
[2017-12-22] MEDS: levoFLOXacin 500 MG TAB PO SCH (10:45)
--- NOTE | 2017-12-22 12:38 | P.PN ---
Subjective Date of Service: 12/22/17 Primary Care Provider: Dr Harding Chief Complaint: Falls Pt seen and examined at bedside. Chart Reviewed. Case DW with PT. Working with PT at this time. Ambulated 100 feet with rolling walker with moderate assist in however is with unsteady gait at this time. Review of Systems 10-point ROS is otherwise unremarkable Physical Examination - Vital Signs Temperature: 98.4 F Blood Pressure: 191/87 Pulse: 58 Respirations: 18 Pulse Ox (%): 94 - Physical Exam General: Alert, In no apparent distress HEENT: Atraumatic, PERRLA, EOMI Neck: Supple, JVD not distended Respiratory: Clear to auscultation bilaterally, Normal air movement Cardiovascular: Regular rate/rhythm, Normal S1 S2 Gastrointestinal: Normal bowel sounds, No tenderness Musculoskeletal: No tenderness Integumentary: No rashes Neurological: Normal speech, Normal tone, Normal affect Lymphatics: No axilla or inguinal lymphadenopathy - Studies Medications List Reviewed: Yes Assessment And Plan - Current Problems (Diagnosis) (1) UTI (urinary tract infection) Onset Date: 04/27/17 Current Visit: No Status: Acute Plan: UA concerning for urinary tract infection. -urine culture positive for beta-hemolytic. Currently started on IV Levaquin. Will follow cultures at this time. Qualifiers: Urinary tract infection type: acute cystitis Hematuria presence: without hematuria Qualified Code(s): N30.00 - Acute cystitis without hematuria (2) Multiple falls Onset Date: 12/21/17 Current Visit: Yes Status: Acute Plan: Multiple falls over the past couple of months. Most likely secondary to generalized weakness and dehydration. Patient recently had a back surgery done as well which could be causing her to have generalized weakness in bilateral lower extremity. -physical therapy has been consulted. Patient requiring moderate assist with walking with a rolling walker however with unsteady gait. -fall precautions given at this time. -case management consult for inpatient rehab versus home health placement (3) Elevated troponin Onset Date: 12/21/17 Current Visit: Yes Status: Acute Plan: Elevated troponin x1 in the ER. Most likely secondary to fall. -Troponin trending down today -No Chest Pain (4) H/O: CVA (cerebrovascular accident) Current Visit: No Status: Chronic (5) HTN (hypertension) Onset Date: 04/27/17 Current Visit: No Status: Chronic Qualifiers: Hypertension type: essential hypertension Qualified Code(s): I10 - Essential (primary) hypertension (6) Hyperlipidemia Onset Date: 04/27/17 Current Visit: No Status: Chronic Qualifiers: Hyperlipidemia type: mixed hyperlipidemia Qualified Code(s): E78.2 - Mixed hyperlipidemia (7) Hypothyroid Onset Date: 04/27/17 Current Visit: No Status: Chronic Qualifiers: Hypothyroidism type: acquired Qualified Code(s): E03.9 - Hypothyroidism, unspecified
[2017-12-22] MEDS: ATORVASTATIN 40 MG TAB PO SCH (20:51)
[2017-12-22] MEDS: TRAZODONE 50 MG TABLET PO PRN (22:33)
[2017-12-23] MEDS: HYDRALAZINE HCL 20 MG/ML VIAL IV PRN (00:04)
[2017-12-23 04:47] LABS: Absolute Monocytes 0.5 K/uL (0.1-1.3); Absolute Neutrophil 5.4 K/uL (1.8-8.0); Basophils % 0.5 % (0-1.3); Eosinophils % 1.7 % (0-4.4); Hematocrit 34.4 % (36.0-45.0); Lymphocytes % 13.7 % (15.3-44.8); MCH 26.9 pg (27.0-35.0); MCV 80.3 fL (80-100); MPV 8.8 fL (7.6-11.3); Monocytes % 7.6 % (3.3-12.3); RBC Red Blood Cell Count 4.28 M/uL (3.86-4.86)
[2017-12-23 05:16] LABS: Albumin 3.3 g/dL (3.4-5.0); Bilirubin Total 0.8 mg/dL (0.2-1.0); Potassium 3.9 mmol/L (3.5-5.1); Protein, Total 6.7 g/dL (6.4-8.2)
[2017-12-23] MEDS: LEVOTHYROXINE SOD 0.1 MG TAB PO SCH (05:57)
[2017-12-23] MEDS ORDERED: POTASSIUM CL SA 10 MEQ TAB PO ONE (06:00)
[2017-12-23] MEDS: GABAPENTIN 100 MG CAP PO SCH ×3 (08:24→21:50)
[2017-12-23] MEDS: levoFLOXacin 500 MG TAB PO SCH (08:24)
[2017-12-23] MEDS: CLOPIDOGREL 75 MG TABLET PO SCH (08:24)
[2017-12-23] MEDS: SERTRALINE HCL 100 MG TAB PO SCH (08:24)
[2017-12-23] MEDS: LORATADINE 10 MG TAB PO SCH (08:25)
[2017-12-23] MEDS: VALSARTAN 80 MG TAB PO SCH (08:25)
[2017-12-23] MEDS: SOLIFENACIN SUCCINATE 10 MG PO SCH (08:26)
[2017-12-23] MEDS: MINOXIDIL 2.5 MG TAB PO SCH ×2 (08:27→21:50)
[2017-12-23] MEDS: METOPROLOL XL 50 MG TAB PO SCH ×2 (08:28→21:00)
--- NOTE | 2017-12-23 14:22 | P.PN ---
Subjective Date of Service: 12/23/17 Primary Care Provider: Dr Harding Chief Complaint: Falls Pt seen and examined at bedside. Chart Reviewed. Case DW with PT. Working with PT at this time. Review of Systems 10-point ROS is otherwise unremarkable Physical Examination - Vital Signs Temperature: 97.7 F Blood Pressure: 159/72 Pulse: 55 Respirations: 18 Pulse Ox (%): 96 - Physical Exam General: Alert, In no apparent distress HEENT: Atraumatic, PERRLA, EOMI Neck: Supple, JVD not distended Respiratory: Clear to auscultation bilaterally, Normal air movement Cardiovascular: Regular rate/rhythm, Normal S1 S2 Gastrointestinal: Normal bowel sounds, No tenderness Musculoskeletal: No tenderness Integumentary: No rashes Neurological: Normal speech, Normal tone, Normal affect Lymphatics: No axilla or inguinal lymphadenopathy - Studies Microbiology Data (last 24 hrs): 12/20/17 08:40 Clean Catch Urine [place] Count - Final >100,000 CFU/ML. 12/20/17 08:40 Clean Catch Urine - Final Streptococcus Dysgalactiae Medications List Reviewed: Yes Assessment And Plan - Current Problems (Diagnosis) (1) UTI (urinary tract infection) Onset Date: 04/27/17 Current Visit: No Status: Acute Plan: UA concerning for urinary tract infection. -urine culture positive for beta-hemolytic. Currently started on IV Levaquin. Will follow cultures at this time. Qualifiers: Urinary tract infection type: acute cystitis Hematuria presence: without hematuria Qualified Code(s): N30.00 - Acute cystitis without hematuria (2) Multiple falls Onset Date: 12/21/17 Current Visit: Yes Status: Acute Plan: Multiple falls over the past couple of months. Most likely secondary to generalized weakness and dehydration. Patient recently had a back surgery done as well which could be causing her to have generalized weakness in bilateral lower extremity. -physical therapy has been consulted. Patient requiring moderate assist with walking with a rolling walker -fall precautions given at this time. -case management consult for inpatient rehab versus home health placement (3) Elevated troponin Onset Date: 12/21/17 Current Visit: Yes Status: Acute Plan: Elevated troponin x1 in the ER. Most likely secondary to fall. -Troponin trending down today -No Chest Pain (4) H/O: CVA (cerebrovascular accident) Current Visit: No Status: Chronic (5) HTN (hypertension) Onset Date: 04/27/17 Current Visit: No Status: Chronic Qualifiers: Hypertension type: essential hypertension Qualified Code(s): I10 - Essential (primary) hypertension (6) Hyperlipidemia Onset Date: 04/27/17 Current Visit: No Status: Chronic Qualifiers: Hyperlipidemia type: mixed hyperlipidemia Qualified Code(s): E78.2 - Mixed hyperlipidemia (7) Hypothyroid Onset Date: 04/27/17 Current Visit: No Status: Chronic Qualifiers: Hypothyroidism type: acquired Qualified Code(s): E03.9 - Hypothyroidism, unspecified Discharge Plan: Other Plan to discharge in: 24 Hours - Code Status/Comfort Care Code Status Assessed: Yes Critical Care: No
[2017-12-23] MEDS: ATORVASTATIN 40 MG TAB PO SCH (21:50)
[2017-12-23] MEDS: TRAZODONE 50 MG TABLET PO PRN (22:49)
[2017-12-24] MEDS: LEVOTHYROXINE SOD 0.1 MG TAB PO SCH (05:51)
[2017-12-24 06:03] LABS: Potassium 4.1 mmol/L (3.5-5.1)
[2017-12-24] MEDS: METOPROLOL XL 50 MG TAB PO SCH ×3 (09:00→21:00)
[2017-12-24] MEDS: CLOPIDOGREL 75 MG TABLET PO SCH (09:29)
[2017-12-24] MEDS: LORATADINE 10 MG TAB PO SCH (09:29)
[2017-12-24] MEDS: VALSARTAN 80 MG TAB PO SCH (09:30)
[2017-12-24] MEDS: GABAPENTIN 100 MG CAP PO SCH ×3 (09:30→20:17)
[2017-12-24] MEDS: SERTRALINE HCL 100 MG TAB PO SCH (09:30)
[2017-12-24] MEDS: levoFLOXacin 500 MG TAB PO SCH (09:30)
[2017-12-24] MEDS: SOLIFENACIN SUCCINATE 10 MG PO SCH (09:32)
[2017-12-24] MEDS: MINOXIDIL 2.5 MG TAB PO SCH ×2 (11:36→20:17)
--- NOTE | 2017-12-24 16:50 | P.PN ---
Subjective Date of Service: 12/24/17 Primary Care Provider: Dr Harding Chief Complaint: Falls Pt seen and examined at bedside. Chart Reviewed. Case DW with PT. Working with PT at this time. Currently waiting for insurance approval for Inpatient rehab. However If pt is ambulating 250ft with RW and min A she can be discharged home if insurance denies Rehab Review of Systems 10-point ROS is otherwise unremarkable Physical Examination - Vital Signs Temperature: 98.9 F Blood Pressure: 126/62 Pulse: 60 Respirations: 16 Pulse Ox (%): 96 - Physical Exam General: Alert, In no apparent distress HEENT: Atraumatic, PERRLA, EOMI Neck: Supple, JVD not distended Respiratory: Clear to auscultation bilaterally, Normal air movement Cardiovascular: Regular rate/rhythm, Normal S1 S2 Gastrointestinal: Normal bowel sounds, No tenderness Musculoskeletal: No tenderness Integumentary: No rashes Neurological: Normal speech, Normal tone, Normal affect Lymphatics: No axilla or inguinal lymphadenopathy - Studies Medications List Reviewed: Yes Assessment And Plan - Current Problems (Diagnosis) (1) UTI (urinary tract infection) Onset Date: 04/27/17 Current Visit: No Status: Acute Plan: UA concerning for urinary tract infection. -urine culture positive for beta-hemolytic. - IV rocephine for now Qualifiers: Urinary tract infection type: acute cystitis Hematuria presence: without hematuria Qualified Code(s): N30.00 - Acute cystitis without hematuria (2) Multiple falls Onset Date: 12/21/17 Current Visit: Yes Status: Acute Plan: Multiple falls over the past couple of months. Most likely secondary to generalized weakness and dehydration. Patient recently had a back surgery done as well which could be causing her to have generalized weakness in bilateral lower extremity. -physical therapy has been consulted. Patient requiring moderate assist with walking with a rolling walker -fall precautions given at this time. -case management consult for inpatient rehab -Pending insurance approval. -If she is doing well she can be discharged home. (3) Elevated troponin Onset Date: 12/21/17 Current Visit: Yes Status: Acute Plan: Elevated troponin x1 in the ER. Most likely secondary to fall. -Troponin trending down today -No Chest Pain (4) H/O: CVA (cerebrovascular accident) Current Visit: No Status: Chronic (5) HTN (hypertension) Onset Date: 04/27/17 Current Visit: No Status: Chronic Qualifiers: Hypertension type: essential hypertension Qualified Code(s): I10 - Essential (primary) hypertension (6) Hyperlipidemia Onset Date: 04/27/17 Current Visit: No Status: Chronic Qualifiers: Hyperlipidemia type: mixed hyperlipidemia Qualified Code(s): E78.2 - Mixed hyperlipidemia (7) Hypothyroid Onset Date: 04/27/17 Current Visit: No Status: Chronic Qualifiers: Hypothyroidism type: acquired Qualified Code(s): E03.9 - Hypothyroidism, unspecified Discharge Plan: Home Plan to discharge in: 48 Hours - Code Status/Comfort Care Code Status Assessed: Yes Critical Care: No
[2017-12-24] MEDS ORDERED: LIDOCAINE 1% MPF 2 ML AMPULE IV ONE (17:45)
[2017-12-24] MEDS ORDERED: CEFTRIAXONE/SWI 1gm 1 GM/10 ML SYR IVP SCH (18:00)
[2017-12-24] MEDS ORDERED: CEFTRIAXONE 1000 MG/VIAL IM ONE (18:00)
[2017-12-24] MEDS: ATORVASTATIN 40 MG TAB PO SCH (20:16)
[2017-12-24] MEDS: TRAZODONE 50 MG TABLET PO PRN (23:50)
[2017-12-25] MEDS: LEVOTHYROXINE SOD 0.1 MG TAB PO SCH (05:38)
[2017-12-25] MEDS ORDERED: CEFTRIAXONE 1 GM/NS 50 ML 1 GM/50 ML BAG IV SCH (09:00)
[2017-12-25] MEDS ORDERED: CEFTRIAXONE 1000 MG/VIAL IM SCH ×2 (09:00)
[2017-12-25] MEDS ORDERED: LIDOCAINE 1% MPF 2 ML AMPULE IV SCH (09:00)
[2017-12-25] MEDS: METOPROLOL XL 50 MG TAB PO SCH ×2 (09:00→21:08)
[2017-12-25] MEDS: LORATADINE 10 MG TAB PO SCH (09:17)
[2017-12-25] MEDS: MINOXIDIL 2.5 MG TAB PO SCH ×2 (09:19→21:08)
[2017-12-25] MEDS: LIDOCAINE 1% MPF 2 ML AMPULE IM SCH (09:21)
[2017-12-25] MEDS: SOLIFENACIN SUCCINATE 10 MG PO SCH (09:22)
[2017-12-25] MEDS: VALSARTAN 80 MG TAB PO SCH (09:23)
[2017-12-25] MEDS: SERTRALINE HCL 100 MG TAB PO SCH (09:23)
[2017-12-25] MEDS: GABAPENTIN 100 MG CAP PO SCH ×3 (09:23→21:08)
[2017-12-25] MEDS: CLOPIDOGREL 75 MG TABLET PO SCH (09:23)
--- NOTE | 2017-12-25 13:35 | P.PN ---
Subjective Date of Service: 12/25/17 Primary Care Provider: Dr Harding Chief Complaint: Falls doing better, still has weakness and unsteadiness on PT Physical Examination - Vital Signs Temperature: 98.7 F Blood Pressure: 113/56 Pulse: 58 Respirations: 18 Pulse Ox (%): 97 - Physical Exam General: Alert, In no apparent distress HEENT: Atraumatic, PERRLA, EOMI Neck: Supple, JVD not distended Respiratory: Clear to auscultation bilaterally, Normal air movement Cardiovascular: Regular rate/rhythm, Normal S1 S2 Gastrointestinal: Normal bowel sounds, No tenderness Musculoskeletal: No tenderness Integumentary: No rashes Neurological: Normal speech, Normal tone, Normal affect Lymphatics: No axilla or inguinal lymphadenopathy - Studies Medications List Reviewed: Yes Assessment And Plan - Plan - Current Problems (Diagnosis) (1) UTI (urinary tract infection) Onset Date: 04/27/17 Current Visit: No Status: Acute Plan: UA concerning for urinary tract infection. -urine culture positive for beta-hemolytic. -Start oral ampicillin Qualifiers: Urinary tract infection type: acute cystitis Hematuria presence: without hematuria Qualified Code(s): N30.00 - Acute cystitis without hematuria (2) Multiple falls Onset Date: 12/21/17 Current Visit: Yes Status: Acute Plan: (3) Elevated troponin Onset Date: 12/21/17 Current Visit: Yes Status: Acute Plan: Elevated troponin x1 in the ER. Most likely secondary to fall. -Troponin trending down today -No Chest Pain (4) H/O: CVA (cerebrovascular accident) Current Visit: No Status: Chronic (5) HTN (hypertension) Onset Date: 04/27/17 Current Visit: No Status: Chronic Qualifiers: Hypertension type: essential hypertension Qualified Code(s): I10 - Essential (primary) hypertension (6) Hyperlipidemia Onset Date: 04/27/17 Current Visit: No Status: Chronic Qualifiers: Hyperlipidemia type: mixed hyperlipidemia Qualified Code(s): E78.2 - Mixed hyperlipidemia (7) Hypothyroid Onset Date: 04/27/17 Current Visit: No Status: Chronic Qualifiers: Hypothyroidism type: acquired Qualified Code(s): E03.9 - Hypothyroidism, unspecified Discharge Plan: Home Plan to discharge in: 48 Hours - Code Status/Comfort Care Code Status Assessed: Yes Critical Care: No PLANS: --Change to PO Ampicillin for UTI --Cont PT/OT, Rehab pending
[2017-12-25] MEDS: AMPICILLIN TRIHYDRATE 250 MG CAP PO SCH (17:17)
[2017-12-25] MEDS: TRAZODONE 50 MG TABLET PO PRN (21:08)
[2017-12-25] MEDS: ATORVASTATIN 40 MG TAB PO SCH (21:09)
[2017-12-26] MEDS: AMPICILLIN TRIHYDRATE 250 MG CAP PO SCH
[2017-12-26] MEDS: AMOXICILLIN TRIHYDR 250 MG CAP PO SCH ×3 (00:58→16:11)
[2017-12-26] MEDS: LEVOTHYROXINE SOD 0.1 MG TAB PO SCH (05:00)
[2017-12-26] MEDS: LIDOCAINE 1% MPF 2 ML AMPULE IM SCH (09:00)
[2017-12-26] MEDS: SERTRALINE HCL 100 MG TAB PO SCH (09:05)
[2017-12-26] MEDS: GABAPENTIN 100 MG CAP PO SCH ×3 (09:05→21:03)
[2017-12-26] MEDS: CLOPIDOGREL 75 MG TABLET PO SCH (09:05)
[2017-12-26] MEDS: METOPROLOL XL 50 MG TAB PO SCH ×2 (09:06→21:04)
[2017-12-26] MEDS: MINOXIDIL 2.5 MG TAB PO SCH ×2 (09:06→21:04)
[2017-12-26] MEDS: VALSARTAN 80 MG TAB PO SCH (09:07)
[2017-12-26] MEDS: LORATADINE 10 MG TAB PO SCH (09:07)
[2017-12-26] MEDS: SOLIFENACIN SUCCINATE 10 MG PO SCH (09:08)
--- NOTE | 2017-12-26 18:57 | P.PN ---
Subjective Date of Service: 12/26/17 Primary Care Provider: Dr Harding Chief Complaint: Falls doing better, still has weakness and unsteadiness on PT Physical Examination - Vital Signs Temperature: 97.8 F Blood Pressure: 151/66 Pulse: 63 Respirations: 18 Pulse Ox (%): 97 - Physical Exam General: Alert, In no apparent distress HEENT: Atraumatic, PERRLA, EOMI Neck: Supple, JVD not distended Respiratory: Clear to auscultation bilaterally, Normal air movement Cardiovascular: Regular rate/rhythm, Normal S1 S2 Gastrointestinal: Normal bowel sounds, No tenderness Musculoskeletal: No tenderness Integumentary: No rashes Neurological: Normal speech, Normal tone, Normal affect Lymphatics: No axilla or inguinal lymphadenopathy - Studies Medications List Reviewed: Yes Assessment And Plan - Plan - Current Problems (Diagnosis) (1) UTI (urinary tract infection) Onset Date: 04/27/17 Current Visit: No Status: Acute Plan: UA concerning for urinary tract infection. -urine culture positive for beta-hemolytic. -Start oral ampicillin Qualifiers: Urinary tract infection type: acute cystitis Hematuria presence: without hematuria Qualified Code(s): N30.00 - Acute cystitis without hematuria (2) Multiple falls Onset Date: 12/21/17 Current Visit: Yes Status: Acute Plan: (3) Elevated troponin Onset Date: 12/21/17 Current Visit: Yes Status: Acute Plan: Elevated troponin x1 in the ER. Most likely secondary to fall. -Troponin trending down today -No Chest Pain (4) H/O: CVA (cerebrovascular accident) Current Visit: No Status: Chronic (5) HTN (hypertension) Onset Date: 04/27/17 Current Visit: No Status: Chronic Qualifiers: Hypertension type: essential hypertension Qualified Code(s): I10 - Essential (primary) hypertension (6) Hyperlipidemia Onset Date: 04/27/17 Current Visit: No Status: Chronic Qualifiers: Hyperlipidemia type: mixed hyperlipidemia Qualified Code(s): E78.2 - Mixed hyperlipidemia (7) Hypothyroid Onset Date: 04/27/17 Current Visit: No Status: Chronic Qualifiers: Hypothyroidism type: acquired Qualified Code(s): E03.9 - Hypothyroidism, unspecified Discharge Plan: Home Plan to discharge in: 48 Hours - Code Status/Comfort Care Code Status Assessed: Yes Critical Care: No PLANS: --Change to PO Ampicillin for UTI --Cont PT/OT, Rehab pending
[2017-12-26] MEDS: TRAZODONE 50 MG TABLET PO PRN (21:04)
[2017-12-26] MEDS: ATORVASTATIN 40 MG TAB PO SCH (21:04)
[2017-12-27] MEDS: AMOXICILLIN TRIHYDR 250 MG CAP PO SCH ×2 (00:03→08:46)
[2017-12-27 04:58] LABS: Albumin 3.1 g/dL (3.4-5.0); Bilirubin Total 0.5 mg/dL (0.2-1.0); Potassium 4.1 mmol/L (3.5-5.1); Protein, Total 6.3 g/dL (6.4-8.2)
[2017-12-27] MEDS: LEVOTHYROXINE SOD 0.1 MG TAB PO SCH (06:03)
[2017-12-27] MEDS: LIDOCAINE 1% MPF 2 ML AMPULE IM SCH (07:56)
[2017-12-27] MEDS: VALSARTAN 80 MG TAB PO SCH (08:46)
[2017-12-27] MEDS: LORATADINE 10 MG TAB PO SCH (08:46)
[2017-12-27] MEDS: GABAPENTIN 100 MG CAP PO SCH ×2 (08:46→14:00)
[2017-12-27] MEDS: METOPROLOL XL 50 MG TAB PO SCH (08:47)
[2017-12-27] MEDS: MINOXIDIL 2.5 MG TAB PO SCH (08:48)
[2017-12-27] MEDS: CLOPIDOGREL 75 MG TABLET PO SCH (08:48)
[2017-12-27] MEDS: SERTRALINE HCL 100 MG TAB PO SCH (08:48)
[2017-12-27] MEDS: SOLIFENACIN SUCCINATE 10 MG PO SCH (08:49)
[2017-12-27 10:57] VITALS: O2SAT 93
[2017-12-27 12:47] VITALS: BP 162/59; TEMP 98.6
--- NOTE | 2017-12-27 14:24 | P.DS ---
Admission Date: 12/20/17 Discharge Date: 12/27/17 Primary Care Provider: Dr Harding Disposition: TRANSFER TO INPATIENT REHAB Discharge Condition: FAIR Reason for Admission: Falls - Problems (1) Multiple falls Onset Date: 12/21/17 Current Visit: Yes Status: Acute (2) UTI (urinary tract infection) Onset Date: 04/27/17 Current Visit: No Status: Acute Qualifiers: Urinary tract infection type: acute cystitis Hematuria presence: without hematuria Qualified Code(s): N30.00 - Acute cystitis without hematuria (3) H/O: CVA (cerebrovascular accident) Current Visit: No Status: Chronic (4) HTN (hypertension) Onset Date: 04/27/17 Current Visit: No Status: Chronic Qualifiers: Hypertension type: essential hypertension Qualified Code(s): I10 - Essential (primary) hypertension (5) Hyperlipidemia Onset Date: 04/27/17 Current Visit: No Status: Chronic Qualifiers: Hyperlipidemia type: mixed hyperlipidemia Qualified Code(s): E78.2 - Mixed hyperlipidemia (6) Hypothyroid Onset Date: 04/27/17 Current Visit: No Status: Chronic Qualifiers: Hypothyroidism type: acquired Qualified Code(s): E03.9 - Hypothyroidism, unspecified Brief History of Present Illness: 82-year-old female with significant past medical history of hypertension, hypothyroidism, previous CVA who presented to the ED having multiple falls at the house. Patient stated that for the past month and a half she has been having frequent falls at the house and recent and started having some right- sided muscle pain in her groin area. Patient stated that her pain initially started between her gluteal region and progressed down to her leg and thus decided to come to the ER. At bedside patient's daughter stated that she has been having similar episodes in the past now becoming hard for her to ambulate and she has been having more generalized weakness over the past month and a half. Denies having any fever chills nausea vomiting abdominal pain or any other associated symptoms at this time. Hospital Course: She was treated with IVF and ABX. Ucx shows Strep, which is sensitive to ampicillin. She is doing uch better with physical therapy. She is transferred to inpatient reheab. Vital Signs/Physical Exam: Temp Pulse Resp BP Pulse Ox 98.6 F 55 18 162/59 H 96 12/27/17 12:00 12/27/17 12:00 12/27/17 12:00 12/27/17 12:00 12/27/17 12:00 General: Alert, In no apparent distress HEENT: Atraumatic, PERRLA, EOMI Neck: Supple, JVD not distended Respiratory: Clear to auscultation bilaterally, Normal air movement Cardiovascular: Regular rate/rhythm, Normal S1 S2 Gastrointestinal: Normal bowel sounds, No tenderness Musculoskeletal: No tenderness Integumentary: No rashes Neurological: Normal speech, Normal tone, Normal affect Lymphatics: No axilla or inguinal lymphadenopathy Laboratory Data at Discharge: WBC 7.1 K/uL (4.3-10.9) D 12/23/17 04:23 Hgb 11.5 g/dL (12.0-15.0) L 12/23/17 04:23 Hct 34.4 % (36.0-45.0) L 12/23/17 04:23 Plt Count 195 K/uL (152-406) 12/23/17 04:23 PT 12.3 SECONDS (9.5-12.5) 12/20/17 08:40 INR 1.04 12/20/17 08:40 APTT 25.5 SECONDS (24.3-36.9) 12/20/17 08:40 Sodium 140 mmol/L (136-145) 12/27/17 03:57 Potassium 4.1 mmol/L (3.5-5.1) 12/27/17 03:57 BUN 22 mg/dL (7-18) H 12/27/17 03:57 Creatinine 0.80 mg/dL (0.55-1.3) 12/27/17 03:57 Glucose 115 mg/dL (74-106) H 12/27/17 03:57 Phosphorus 3.1 mg/dL (2.5-4.9) 12/22/17 05:45 Magnesium 2.0 mg/dL (1.8-2.4) 12/20/17 08:40 Total Bilirubin 0.5 mg/dL (0.2-1.0) 12/27/17 03:57 AST 19 U/L (15-37) 12/27/17 03:57 ALT 21 U/L (12-78) 12/27/17 03:57 Alkaline Phosphatase 72 U/L (45-117) 12/27/17 03:57 Troponin I 0.05 ng/mL (0.0-0.045) H 12/21/17 06:00 Home Medications: Cholecalciferol (Vitamin D3) [Vitamin D 5,000 IU Cap*] 50,000 unit PO EVERY 7TH DAY 04/21/13 Levothyroxine [Synthroid*] 100 mcg PO DAILY 04/21/13 Loratadine [Claritin*] 10 mg PO DAILY 04/21/13 Sertraline [Zoloft*] 100 mg PO DAILY 04/21/13 Solifenacin Succinate [Vesicare] 10 mg PO DAILY 04/21/13 Telmisartan [Micardis] 80 mg PO DAILY 04/21/13 Atorvastatin Calcium 1 tab PO DAILY 08/05/15 Gabapentin [Neurontin*] 100 mg PO TID 04/26/17 Omeprazole [Prilosec] 40 mg PO DAILY 04/26/17 Trazodone [Desyrel*] 100 mg PO BEDTIME 04/26/17 Metoprolol Succinate [Toprol Xl*] 1 tab PO BID 04/27/17 Clopidogrel Bisulfate [Plavix*] 75 mg PO DAILY #30 tablet 04/28/17 Minoxidil [Loniten*] 2.5 mg PO BID 04/28/17 Amoxicillin [Amoxil Cap*] 250 mg PO Q8H cap 12/27/17 Cholecalciferol (Vitamin D3) [Vitamin D 5,000 IU Cap*] 5,000 unit PO EVERY 7TH DAY cap 12/27/17 LIDOCAINE 1% INJ, MPF 2mL [XYLOCAINE-MPF 1% (2 mL vial)*] 20 mg IM DAILY ml 02/03 Pharmacy Consult 1 ea XX DAILYPRN PRN each 12/27/17 Trazodone [Desyrel*] 100 mg PO BEDTIME PRN PRN tablet 12/27/17 Activity: Ad gaby Time spent managing pt's care (in minutes): 35
== END 2017-12-27 15:34 ==
LOC: ER 07:47 → ERHOLD 10:49 → 4TH 12:23
PROVIDERS: ADMIT Family Medicine; ATTEND Internal Medicine Hematology & Oncology
DX: R53.1 Weakness (principal); N30.00 Acute cystitis without hematuria; Z86.73 Personal history of transient ischemic attack (TIA), and cerebral infarction without residual deficits; I10 Essential (primary) hypertension; E78.2 Mixed hyperlipidemia; E03.9 Hypothyroidism, unspecified; B95.5 Unspecified streptococcus as the cause of diseases classified elsewhere; Z79.02 Long term (current) use of antithrombotics/antiplatelets; R74.8 Abnormal levels of other serum enzymes; Z91.81 History of falling; R10.30 Lower abdominal pain, unspecified; Z88.3 Allergy status to other anti-infective agents; Z88.8 Allergy status to other drugs, medicaments and biological substances
CPT/HCPCS: 36415; 70450; 71045; 72100; 72170; 80048; 80053; 80076; 81003; 82550; 82553; 83735; 83880; 84100; 84439; 84443; 84484; 85025; 85610; 85730; 87077; 87086; 87088; 87186; 93005; 93970; 96372; 96374; 96375; 97163; 99285; G0378; J0360; J0696; J1650; J2001; J2405; J7030

== ENCOUNTER 2017-12-27 12:13 | Inpatient (IN) | payer OTHER ==
--- NOTE | 2017-12-27 13:32 | R.PREADM ---
SCREENING DATE AND TIME 12/27/2017 12:20 (CDT) ANTICIPATED REHAB ADMISSION DATE 12/29/2017 REFERRING FACILITY [facility] REFERRAL DATE AND TIME 12/27/2017 12:23 (CDT) REFERRAL ROOM# 408 ACUTE ADMIT DATE 12/20/2017 Previous Rehabilitation(s): No. 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 Arun Joshua M.D. MR# [id number] NAME JUANA MARQUEZ ADDRESS [address] PH[address] [facility] [place] [address] DATE OF 1935 AGE 82 SSN# [id number] GENDER female MARITAL STATUS RACE white ADMIT FROM 02 - [facility] PRE-HOSPITAL LIVING SETTING 01 - Home (private home/apt. board/care, assisted living, assisted, transitional living) HOME TYPE AND DETAILS Type of home: single family house # of levels in the residence: 1 # of steps within the residence: 0 # of steps to enter the residence: 1 PRE-HOSPITAL LIVING WITH Family/Relatives FAMILY SUPPORT Yes PRIMARY FAMILY CONTACT NAME Dante Galarza PRIMARY FAMILY CONTACT PHONE PRIMARY FAMILY CONTACT RELATIONSHIP Son PHONE PRIMARY FAMILY CONTACT ON ADM.? no IS PRIMARY FAMILY CONTACT AUTH. REP.? no 1ST EMERGENCY CONTACT Dante Galarza 1ST CONTACT PHONE 1ST CONTACT RELATIONSHIP Son PHONE 1ST CONTACT ON ADM. no IS 1ST CONTACT AUTH. REP.? no PHONE 2ND CONTACT ON ADM.? no PATIENT EMPLOYMENT STATUS Retired (for age) PATIENT EMPLOYER No Employer PAYOR INFORMATION: 1ST PAYOR NAME [facility] 1ST PAYOR INJURY/ILLNESS DUE TO ACCIDENT? No ANOTHER LIBERTARIAN RESPONSIBLE? 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 is a 82 yo Right-handed white female. On 12/20/2017 she was admitted to [facility] with diagnosis Multiple Falls. Her impairment category is Debility 16 - Debility (16). Pre-morbidly, Pt. was independent/mod-I in Communication, Social Cognition, Self-Care, Locomotion, Sp hincter Control, and Transfers Control; and she had good Sphincter Control. Currently, she has deficits of Balance, Locomotion, Endurance, Safety Awareness, Transfers Control, a nd Self-Care. Pt. is now referred to [facility] for acute in-patient rehabilitation in order to maximize patient's functional independence in activities of daily living, strength, ROM, and mobi lity. Patient has realistic goal of being discharged at assistance level 5-sup to reside at Home with Fami ly/Relatives. 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 Hyperlipidemia Hypertension Hypothyroidism Multiple Falls TIA UTI PAST SURGICAL HISTORY: Knee surgery Back surgery x 3 Hysterectomy Appendectomy Bladder surgery MEDICATION ALLERGIES: Meperidine HCl Nitrofurantoin Macrocrystal ENVIRONMENTAL ALLERGIES: None Known - Substance Allergies None Known - Other Allergies None Known CODE STATUS: Full code WEIGHT/HEIGHT/BMI: WEIGHT 155 lbs HEIGHT 5' 8" BMI 23.6 DIET: - Diet Type Regular - Diet - Solid Texture Regular - Diet - Liquid Texture Regular - Tube Feed N/A REVIEW OF SYSTEMS: - Gen Alert and awake Lying in bed No apparent distress Oriented to: person, time, and place - Vital Signs Temperature: 98.1 F SBP/DBP: 151/63 Pulse: 53 Resp: 16 Vital signs stable, afebrile - CVS RRR VITAL SIGNS Temperature: 98.1 F SBP/DBP: 151/63 Pulse: 53 Resp: 16 Vital signs stable, afebrile CURRENT SPHINCTER CONTROL: Pre-hospital bladder status: continent # of bladder accidents in the last 7 days prior to screenin Pre-hospital bowel status: continent # of bowel accidents in the last 7 days prior to screenin Last Bowel Movement Date: DETAILED CURRENT FUNCTIONAL STATUS: - Bladder accident frequency: Ind - No accidents in the past 7 days - Bowel accident frequency: Ind - No accidents in the past 7 days - Walking score based on distance walked: 3(>=150ft) - Wheelchair score based on distance traveled: 0(N/A) FUNCTIONAL STATUS: - Self-Care A. Eating Ind Ind B. Grooming Ind Ind C. Bathing Ind sup D. Dressing - Upper Ind sup E. Dressing - Lower Ind sup F. Toileting Ind sup - Sphincter Control G: Bladder control Ind Ind H: Bowel control Ind Ind - Transfers Control I. Bed/Chair/Wheelchair Ind sup J. Toilet Ind sup K. Tub/Shower Ind ADNO - Locomotion L. Walk/Wheelchair (B) Ind sup M. Stairs Ind ADNO - Communication N. Comprehension (B) Ind [place] O. Expression (B) Ind Varghese - Social Cognition P. Social Interaction Ind [place] Q. Problem Solving Ind [place]hese R. Memory Ind [place]hese - Endurance Fair - Balance Fair - Safety Awareness Fair CURRENT FUNC. DEFICITS: Balance, Locomotion, Endurance, Safety Awareness, Transfers Control, and Self-Care THERAPY NOTES FROM ACUTE CARE: Attached. SPECIAL NEEDS: - Safety Concerns Skin breakdown precautions needed due to skin breakdown risk PATIENT NEEDS ACTIVE AND ONGOING THERAPEUTIC INTERVENTION OF MULTIPLE THERAPY DISCIPLINES, INCLUDING: - Occupational Therapy Evaluate and Treat. - Physical Therapy Evaluate and Treat. PATIENT NEEDS CLOSE MEDICAL SUPERVISION BY A REHABILITATION PHYSICIAN FOR: Bowel and Bladder Management Coordination of Treatment Team Medical and Co-Morbidity Management DVT Management Pain Management PATIENT REQUIRES 24X7 REHAB NURSING FOR MEDICAL AND FUNCTIONAL MGT. OF THE FOLLOWING DEFICITS: ADL's Ambulation Bowel and Bladder Management Cognition Communication Disease Management Medication Management Patient/Family Education Providing Safe Environment Transfers Pain Management PATIENT REQUIRES INTENSIVE, COORDINATED INTERDISCIPLINARY APPROACH TO REHAB: Arranging Home Equipment/Services Discharge Planning Family Intervention/Training Floor Covering Printer/Case Management PATIENT REHAB POTENTIAL: Expected level of measurable improvement will be of a practical value to patient's functional capacit y or adaptations to impairments Has a viable Discharge Plan Medically appropriate; condition is sufficiently stable to participate in intensive rehab program Patient is able and expected to receive 3 hours of individualized therapy daily on at least 5 of ever y 7 days Patient's prognosis for significant practical improvement within a reasonable period of time appears Good DISCHARGE PLAN: - Estimated Length of Stay (days) 13. - Consensus on plan Discharge plan has been discussed with primary caregiver. Patient/Family is in agreement with the kermit n. Primary caregiver is in agreement with the plan. - Patient/Family Goals Return home with assistance. - Planned Living Setting Upon Discharge Home, to live with Family/Relatives. RECOMMENDED CARE LEVEL: IRF RECOMMENDATION DETAILS: Recommended Admission to Comprehensive Rehabilitation Program to Increase Functional [place] SCREENER'S COMPLETENESS CONFIRMATION: - Screening Confirmation The patient data collection on this preadmission screening form is finished PHYSICIANS REVIEW AND ADMISSION DETERMINATION Admit - Based on my review of the Pre-Admission Screening results, in my medical judgment and experie nce, I concur with the findings and recommend admission to [facility], as this patient requires an IRF level of care. SIGNATURE PANEL: Clinical Liaison - [electronically] signed by Tamanna Terrazas on 12/27/2017 at 13:20 (CDT) Physician Reviewer - [electronically] signed by Dr. Arun Joshua M.D. on 12/27/2017 at 13:31 (CDT )
--- OUTSIDE RECORDS SUMMARY | 2017-12-27 15:45 | XMS REPORT | Clinical Summary ---
:1935 Author Organization [facility] Address [address] [place] [address] Care Team Providers Name Role Phone Rhett [...] total) Arthritis of spine by mouth daily. levoFLOXacin Take 500 mg 0 04/28/2017 Active (LEVAQUIN) 500 MG by mouth tablet daily. minoxidil (LONITEN) Take 2.5 mg Active 2.5 MG tablet by mouth 2 (two) times a day. gabapentin Take 1 270 capsule 1 10/27/2017 Active (NEURONTIN) 100 mg capsule (100 capsuleIndications: mg total) by Neuropathy mouth 3 (three) times a day. atorvastatin Take 1 tablet 90 tablet 0 12/24/2017 Active (LIPITOR) 40 MG (40 mg total) tabletIndications: by mouth Hyperlipidemia, daily. unspecified hyperlipidemia type clopidogrel (PLAVIX) Take 1 tablet 90 tablet 0 12/24/2017 Active 75 mg tablet (75 mg total) by mouth daily. metoprolol succinate Take 1 tablet 180 tablet 0 12/24/2017 12/25/19 Active XL (TOPROL XL) 50 mg (50 mg total) 19 24 hr tablet by mouth 2 (two) times a day. levothyroxine Take 1 tablet 90 tablet 0 12/24/2017 Active (SYNTHROID, LEVOXYL) (100 mcg 100 mcg tablet total) by mouth every morning. telmisartan Take 1 tablet 90 tablet 0 12/24/2017 Active (MICARDIS) 80 MG (80 mg total) tabletIndications: by mouth Essential daily. hypertension gabapentin Take 1 270 capsule 1 04/16/2016 03/24/20 Discontinued (NEURONTIN) 100 mg capsule (100 17 capsuleIndications: mg total) by Neuropathy mouth 3 (three) times a day. levothyroxine Take 1 tablet 90 tablet 1 [...] 17 tabletIndications: by mouth Environmental daily. allergies sertraline (ZOLOFT) Take 1.5 135 tablet 0 11/20/2016 03/24/20 Discontinued 100 MG tablets (150 17 tabletIndications: mg total) by Anxiety associated mouth daily with depression for 90 days. telmisartan Take 1 tablet 90 tablet 1 11/27/2016 03/24/20 Discontinued (MICARDIS) 80 MG (80 mg total) 17 tabletIndications: by mouth Essential daily. hypertension atorvastatin Take 1 tablet 90 tablet 0 [...] Neuropathy mouth 3 (three) times a day. levothyroxine Take 1 tablet 90 tablet 1 03/24/2017 12/25/19 Discontinued (SYNTHROID, LEVOXYL) (100 mcg 18 100 mcg tablet total) by mouth every morning. omeprazole (PriLOSEC) Take 1 90 capsule 1 03/24/2017 06/23/19 40 MG capsule (40 18 capsuleIndications: mg total) by Gastroesophageal mouth daily reflux disease for 90 days. without esophagitis telmisartan Take 1 tablet 90 tablet 1 03/24/2017 12/25/19 Discontinued (MICARDIS) 80 MG (80 mg total) 18 tabletIndications: by mouth Essential daily. hypertension traZODone (DESYREL) Take 1 tablet 90 tablet [...] up to 30 days. Take with food clopidogrel (PLAVIX) Take 1 tablet 90 tablet 0 10/07/2017 12/25/19 Discontinued 75 mg tablet (75 mg total) 18 by mouth daily. metoprolol succinate Take 1 tablet 180 tablet 1 10/27/2017 12/25/19 Discontinued XL (TOPROL XL) 50 mg (50 mg total) 18 24 hr tablet by mouth 2 (two) times a day. atorvastatin Take 1 tablet 90 tablet 1 11/11/2017 12/25/19 Discontinued (LIPITOR) 40 MG (40 mg total) 18 tabletIndications: by mouth Hyperlipidemia, daily. unspecified hyperlipidemia type Active Problems Problem Noted Date Physical deconditioning [...] Encounters Date Type Specialty Care Team Description 12/24/2017 Refill Family Medicine Juan Carlos Hyperlipidemia, unspecified hyperlipidemia type; Faviola Essential hypertension 11/25/2017 Office Visit Family Medicine [place], Physical deconditioning ( Primary Dx); MD Rhett History of CVA with residual deficit; Gait instability; Sensory ataxia; Neuropathy; Osteoarthritis of multiple joints, unspecified osteoarthritis type; Essential hypertension; Hypothyroidism, unspecified type; Hyperlipidemia, unspecified hyperlipidemia type; Anxiety associated with depression; Insomnia, unspecified type 11/11/2017 Refill Internal Medicine [place] HyperlipidemiaRhett MD unspecified hyperlipidemia type 10/27/2017 Refill Family Medicine Dinora Rangel 10/25/2017 Office Visit Family J Luis Blackwell, Essential [...] Medicine Rhett Blackwell MD 07/06/2017 Office Visit Orthopedic Layla Parada Closed nondisplaced Surgery MD Nancy fracture of phalanx of left little finger [...] Sequelae of protein-calorie malnutrition 06/15/2017 Office Visit Orthopedic aLyla Parada Closed nondisplaced fracture of phalanx of left little finger, unspecified phalanx, initial encounter ( Primary Dx); Surgery MD Nancy Acute pain of right shoulder; Dislocation of proximal interphalangeal joint of left little finger, subsequent encounter; Aftercare following surgery 06/01/2017 Office Visit Orthopedic Layla Parada Aftercare following surgery ( Primary Dx); Surgery MD Nancy Closed nondisplaced fracture of phalanx of left little finger, unspecified phalanx, initial encounter; Dislocation of proximal interphalangeal joint of left little finger, subsequent encounter 05/25/2017 Telephone Orthopedic Landen Cadena MA 05/21/2017 Hospital Encounter Orthopedic Layla Parada Surgery MD Nancy 05/21/2017 Orders Only Orthopedic Tammi, Surgery MIREYA Jose 05/21/2017 Procedure Pass Orthopedic Surgery 05/21/2017 Surgery Layla Mix ORIF SMALL FINGER Surgery MD Nancy 05/19/2017 Pre-Admit Testing Pre-Admission Layla Parada Preop testing ( Primary Appointment Testing E., MD Dx) 05/19/2017 Anesthesia Event Orthopedic Karmen, Surgery 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, 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 05/19/2017 Orders Only Orthopedic Tammi Surgery MIREYA Jose 05/18/2017 Office Visit Orthopedic [place], Dislocation of proximal interphalangeal joint of left little finger, initial encounter (Primary Dx); Surgery MD Rhett Closed nondisplaced fracture of phalanx of left little finger, unspecified phalanx, initial encounter Layla Parada MD 05/06/2017 Orders Only Family Medicine [place], Closed nondisplaced MD Rhett fracture of phalanx of left little finger, unspecified phalanx, initial encounter (Primary Dx) 05/05/2017 Telephone Family Medicine Rhett Blackwell MD 05/04/2017 Office Visit Family Medicine [place], Transient cerebral ischemia, unspecified type (Primary Dx); MD Rhett History of ischemic left MCA stroke; Essential hypertension; Urinary tract infection without hematuria, site unspecified; Injury of finger of left hand, initial encounter 04/28/2017 Refill Family Medicine Tila Gaytan LVN 04/23/2017 Telephone Family Medicine Rhett Blackwell MD 04/22/2017 Telephone Family Medicine Rhett Blackwell MD 04/14/2017 Documentation Neurology Vaishali Astudillo, DO 03/24/2017 Office Visit Family Medicine [place], Essential hypertension ( Primary Dx); MD Rhett Hyperlipidemia, unspecified hyperlipidemia type; Hypothyroidism, unspecified type; History of ischemic left MCA stroke; History of CVA with residual deficit; Gait instability; Osteoarthritis of multiple joints, unspecified osteoarthritis type; Arthritis of spine; Neuropathy; Gastroesophageal reflux disease without esophagitis; Anxiety associated with depression; Insomnia, unspecified type 03/16/2017 Telephone Internal Medicine Sydnee Corley RN 02/25/2017 Procedure visit Neurology Vaishali Astudillo Idiopathic peripheral neuropathy (Primary Dx); Sin Jasmin, DO Spinal stenosis of lumbar region without neurogenic claudication; Phi Graham, Weakness of both lower extremities 02/22/2017 Telephone Family Medicine [place], Gastroesophageal reflux MD Rhett disease without esophagitis (Primary Dx) 02/08/2017 Orders Only Family Medicine ProviderOseas MD 02/04/2017 Office Visit Neurology BaudilioVaishali linda Weakness of both lower extremities (Primary Dx); Sin Jasmin, DO Gait instability; Transient cerebral ischemia, unspecified type; History of ischemic left MCA stroke; Essential hypertension; Sensory ataxia; Urinary incontinence, unspecified type 02/04/2017 Refill Family Medicine [place], Environmental allergies; MD Rhett Anxiety associated with depression 02/03/2017 Telephone Neurology Vaishali Astudillo Sin Jasmin, DO 02/02/2017 Telephone Neurology Vaishali Astudillo Sin Jasmin, DO 01/20/2017 Telephone Family Medicine Rhett Blackwell MD 01/19/2017 Telephone Neurology Vaishali Astudillo Sin Jasmin, DO 01/18/2017 Ancillary Orders Neurology Vaishali Astudillo Transient cerebral Sin Jasmin, DO ischemia, unspecified type 01/14/2017 Telephone Family Medicine Rhett Blackwell MD 01/13/2017 Office Visit Neurology Vaishali Astudillo Transient cerebral ischemia , unspecified type (Primary Dx); Sin Jasmin, DO Weakness of both lower extremities; Urinary incontinence, unspecified type; Sensory ataxia; Hyperlipidemia, unspecified hyperlipidemia type; Essential hypertension; History of ischemic left MCA stroke 01/13/2017 Procedure Pass Radiology 01/13/2017 Procedure Pass Radiology after 12/26/2016 Immunizations Name Dates Previously Given Next Due [...] Visit Family Medicine Rhett Blackwell MD [address] [place] [address] Health Maintenance Due Date Last Done Comments SHINGRIX VACCINE (#1) 06/25/1985 INFLUENZA VACCINE 11/17/2017 03/24/2017, 02/21/2016 PNEUMOCOCCAL POLYSACCHARIDE VACCINE AGE 65 Completed 08/21/2004 AND OVER PNEUMOCOCCAL-13 Completed 08/06/2016 DXA SCAN Excluded 01/21/2017 ZOSTER VACCINE Excluded Implants Implanted Type Area Machine Filler Servicer Device Expiration Model / Identifier Date Serial / Lot Wire K Dual Trcr Pt [id number] Ns - [id number] Temporary Left: MICRO AIRE 1600 445NS / Implanted: Qty: 2 on 05/21/2017 by Layla Parada MD Fixation Pin Hand SURGICAL / or Wire INSTRUMENT Wire K Dual Trcr Pt [id number] Ns - [id number] Temporary Left: MICRO AIRE 1600 [id number] / [...] 06/22/2017 2:01 Hypothyroidism, Results for this PM FLY MAKER unspecified type procedure are in the results section. THYROID STIMULATING Routine 06/22/2017 2:01 Hypothyroidism, Results for this HORMONE PM FLY MAKER unspecified type procedure are in the results section. MICROALBUMIN / Routine 06/22/2017 2:01 Essential hypertension Results for this CREATININE URINE PM FLY MAKER procedure are in RATIO the results section. LIPID PANEL Routine 06/22/2017 2:01 Essential hypertension Results for this PM FLY MAKER Hyperlipidemia, procedure are in unspecified the results hyperlipidemia type section. PROTHROMBIN TIME WITH Routine 06/22/2017 2:01 Sequelae of Results for this INR PM FLY MAKER protein-calorie procedure are in malnutrition the results Preop examination section. URINALYSIS, AUTOMATED Routine 06/22/2017 2:01 Preop examination Results for this WITH MICROSCOPY PM FLY MAKER procedure are in the results section. COMPREHENSIVE Routine 06/22/2017 2:01 Preop examination Results for this METABOLIC PANEL PM FLY MAKER procedure are in the results section. CBC WITH PLATELET AND Routine 06/22/2017 2:01 Preop examination Results for this DIFFERENTIAL PM FLY MAKER procedure are in the results section. URINE CULTURE Routine 06/22/2017 2:01 Abnormal finding in Results for this PM FLY MAKER urine procedure are in Preop examination the results section. XR SHOULDER 2+ VW Routine 06/15/2017 2:34 Closed nondisplaced Results for this RIGHT PM FLY MAKER fracture of phalanx of procedure are in left little finger, the results unspecified phalanx, section. initial encounter Acute pain of right shoulder XR HAND 3+ VW LEFT Routine 06/15/2017 2:34 Closed nondisplaced Results for this PM FLY MAKER fracture of phalanx of procedure are in left little finger, the results unspecified phalanx, section. initial encounter Acute pain of right shoulder MO CLOSE RX PROX/MID Routine 06/15/2017 2:10 Acute pain of right Results for this FING SHFT FX PM FLY MAKER shoulder procedure are in the results section. XR HAND 3+ VW LEFT Routine 06/01/2017 1:54 Closed nondisplaced Results for this PM FLY MAKER fracture of phalanx of procedure are in left little finger, the results unspecified phalanx, section. initial encounter MO CLOSE RX PROX/MID Routine 06/01/2017 1:50 Closed nondisplaced Results for this FING SHFT FX PM FLY MAKER fracture of phalanx of procedure are in left little finger, the results unspecified phalanx, section. initial encounter Aftercare following surgery Dislocation of proximal interphalangeal joint of left little finger, subsequent encounter MO APPLY FOREARM Routine 06/01/2017 1:50 Closed nondisplaced Results for this SPLINT,STATIC PM FLY MAKER fracture of phalanx of procedure are in left little finger, the results unspecified phalanx, section. initial encounter Aftercare following surgery Dislocation of proximal interphalangeal joint of left little finger, subsequent encounter ORIF, FINGER 05/21/2017 9:30 Dislocation of AM FLY MAKER proximal interphalangeal joint of left little finger, initial encounter ECG PRE/POST OP Routine 05/19/2017 1:53 Preop testing Results for this PM FLY MAKER procedure are in the results section. XR HAND 3+ VW LEFT Routine 05/18/2017 2:12 Closed nondisplaced Results for this PM FLY MAKER fracture of phalanx of procedure are in left little finger, the results unspecified phalanx, section. initial encounter XR HAND 3+ VW LEFT Routine 05/04/2017 12:36 Injury of finger of Results for this PM FLY MAKER left hand, initial procedure are in encounter [...] incontinence, the results unspecified type section. after 12/26/2016 Results XR Hand 3+ Vw Left (07/06/2017 [...] TFCC.No internal fixation remains. Performing Organization Address [facility] Cent[facility]ode Phone Number LEEANN HITNON [address] [place] [address] Microalbumin / creatinine urine ratio (06/22/2017 2:01 PM) Creatinine, urine, 106 20 - 320 mg/dL [facility] random KRAMER Microalbumin, urine 1.5 See Note: mg/dL [facility] Comment: [place] Reference Range: Reference Range Not established Microalbumin/creatini 14 <30 mcg/mg creat [facility] ne ratio Comment: [place] The ADA defines abnormalities in albumin excretion as follows: Category Result (mcg/mg creatinine) Normal<30 Microalbuminuria 30-299 Clinical albuminuria > CX=695 The ADA recommends that at least two of three specimens collected within a 3-6 month period be abnormal before considering a patient to be within a diagnostic category. Specimen Blood Resulting Agency Comment Performing Organization Information: Site ID: [id number] Name: [facility] Address: [address] [place] [phone] Director: Yeny Huff MD Performing Organization Address [facility] Centercode Phone Number [employer] [address] [address] Urinalysis, automated with microscopy (06/22/2017 2:01 PM) Color, UA YELLOW YELLOW [facility] [place] Appearance CLEAR CLEAR [facility] [place] Specific gravity, urine 1.015 1.001 - 1.035 [facility] [place] pH, urine 6.5 5.0 - 8.0 [facility] [place] Glucose, urine NEGATIVE NEGATIVE [facility] [place] Bilirubin, UA NEGATIVE NEGATIVE [facility] [place] Ketones, UA NEGATIVE NEGATIVE [facility] [place] Occult blood, urine NEGATIVE NEGATIVE [facility] [place] Protein, UA NEGATIVE NEGATIVE [facility] [place] Nitrite, UA NEGATIVE NEGATIVE [facility] [place] Leukocyte esterase, UA TRACE (A) NEGATIVE [facility] [place] WBC, UA 0-5 < OR=5 /HPF [facility] [place] RBC, UA 0-2 < OR=2 /HPF [facility] [place] Squamous epithelial cells, UA 0-5 < OR=5 /HPF [facility] [place] Bacteria, UA NONE SEEN NONE SEEN /HPF [facility] [place] Hyaline casts, UA NONE SEEN NONE SEEN /LPF [facility] [place] Specimen Blood Resulting Agency Comment Performing Organization Information: Site ID: [id number] Name: [facility] Address: [address] [place] [phone] Director: Yeny Huff MD Performing Organization Address [facility] Centercode Phone Number [employer] [address] [address] Prothrombin time with INR (06/22/2017 2:01 PM) INR 1.0 [facility] [place] Comment: Reference Range 0.9-1.1 Moderate-intensity Warfarin Therapy 2.0-3.0 Higher-intensity Warfarin Therapy 3.0-4.0 Prothrombin time 10.9 9.0 - 11.5 sec [facility] [place] Comment: For more information on this test, go to: http://education.[employer]/faq/QPE075 Specimen Blood Resulting Agency Comment Performing Organization Information: Site ID: [id number] Name: [facility] Address: [address] [place] [phone] Director: Yeny Huff MD Performing Organization Address [facility] Centercode Phone Number [employer] [address] [address] CBC with platelet and differential (06/22/2017 2:01 PM) WBC 6.0 3.8 - 10.8 Thousand/uL [facility] [place] RBC 4.65 3.80 - 5.10 Million/uL [facility] [place] HGB 12.3 11.7 - 15.5 g/dL [facility] [place] HCT 37.9 35.0 - 45.0 % [facility] [place] MCV 81.5 80.0 - 100.0 fL [facility] [place] MCH 26.5 (L) 27.0 - 33.0 pg [facility] [place] MCHC 32.5 32.0 - 36.0 g/dL [facility] [place] RDW 13.3 11.0 - 15.0 % [facility] [place] Platelet count 149 140 - 400 Thousand/uL [facility] [place] MPV 11.0 7.5 - 12.5 fL [facility] [place] Neutrophils, absolute 4,158 1,500 - 7,800 cells/uL [facility] [place] Lymphocytes, absolute 1,332 850 - 3,900 cells/uL [facility] [place] Monocytes, absolute 372 200 - 950 cells/uL [facility] [place] Eosinophils, absolute 108 15 - 500 cells/uL [facility] [place] Basophils, absolute 30 0 - 200 cells/uL [facility] [place] Neutrophils 69.3 % [facility] Lymphocytes 22.2 % [employer] [facility] Monocytes 6.2 % [employer] Eosinophils 1.8 % [facility] [place] Basophils + RC 0.5 % [facility] [place] Specimen Blood Resulting Agency Comment Performing Organization Information: Site ID: [id number] Name: [facility] Address: [address] [place] [address] Director: Yeny Huff MD Performing Organization Address [facility] Centercode Phone [place] [address] Urine culture (06/22/2017 2:01 PM) Urine culture SEE NOTE [employer] Comment: CULTURE, URINE, ROUTINE MICRO NUMBER:[id number] TEST STATUS: FINAL SPECIMEN SOURCE: URINE SPECIMEN QUALITY:ADEQUATE RESULT:Three or more organisms present, each greater than 10,000 cu/mL. May represent normal heath contamination from external genitalia. No further testing is required. Specimen Blood Resulting Agency Comment Performing Organization Information: Site ID: [facility] Name: [facility] Address: [address] [place] [address] Director: Yeny Huff MD Performing Organization Address [facility] Centercode Phone Number [facility] [place] [address] Thyroid stimulating hormone (06/22/2017 2:01 PM) TSH 2.18 0.40 - 4.50 mIU/L [facility] [place] Specimen Blood Resulting Agency Comment Performing Organization Information: Site ID: [id number] Name: [facility] Address: [address] [place] [phone] Director: Yeny Huff MD Performing Organization Address [facility] Centercode Phone Number [facility] [place] [address] T4, free (06/22/2017 2:01 PM) T4, free 1.4 0.8 - 1.8 ng/dL [facility] [place] Specimen Blood Resulting Agency Comment Performing Organization Information: Site ID: [facility] Name: [facility] Address: [address] [place] [phone] Director: Yeny Huff MD Performing Organization Address [facility] Phone Number [employer] [place] [phone] Lipid panel (06/22/2017 2:01 PM) Cholesterol, total 156 <200 mg/dL [employer] HDL cholesterol 72 >50 mg/dL [facility] Triglycerides 247 (H) <150 mg/dL [employer] LDL cholesterol 53 mg/dL (calc) [facility] calculated Comment: [place] Reference range: <100 Desirable range <100 mg/dL for patients with CHD or diabetes and <70 mg/dL for diabetic patients with known heart disease. LDL-C is now calculated using the [place] calculation, which is a validated novel method providing better accuracy than the Friedewald equation in the estimation of LDL-C. Tristen SS et al. SHANE. 2013;310(19): 7528-9285 (http://education.[employer]/faq/KEN888) Cholesterol/HDL ratio 2.2 <5.0 (calc) [employer] Non-HDL cholesterol 84 <130 mg/dL [facility] Comment: (calc) [place] For patients with diabetes plus 1 major ASCVD risk factor, treating to a non-HDL-C goal of <100 mg/dL (LDL-C of <70 mg/dL) is considered a therapeutic option. Specimen Blood Resulting Agency Comment Performing Organization Information: Site ID: RGA Name: [facility] Address: [address] [place] [phone] Director: Yeny Huff MD Performing Organization Address City/State/Zipcode Phone Number [employer] [place] [phone] Comprehensive metabolic panel (06/22/2017 2:01 PM) Glucose 107 (H) 65 - 99 mg/dL [employer] Comment: [place] Fasting reference interval For someone without known diabetes, a glucose value between 100 and 125 mg/dL is consistent with prediabetes and should be confirmed with a follow-up test. BUN, whole blood 19 7 - 25 mg/dL [facility] Creatinine 0.85 0.60 - 0.88 [facility] Comment: mg/dL [place] For patients >49 years of age, the reference limit for Creatinine is approximately 13% higher for people identified as -[place]er. EGFR Non-Afr. [place]er 64 > OR=60 [facility] mL/min/1.73m2 [place] EGFR 74 > OR=60 [facility] mL/min/1.73m2 [place] BUN/creatinine ratio NOT APPLICABLE 6 - 22 (calc) [facility] [place] Sodium 145 135 - 146 mmol/L [facility] [place] Potassium 4.3 3.5 - 5.3 mmol/L [facility] [place] Chloride 107 98 - 110 mmol/L [facility] [place] CO2 32 (H) 20 - 31 mmol/L [facility] [place] Calcium 9.6 8.6 - 10.4 mg/dL [facility] [place] Protein 6.5 6.1 - 8.1 g/dL [facility] [place] Albumin, S 4.3 3.6 - 5.1 g/dL [facility] [place] Globulin, total 2.2 1.9 - 3.7 g/dL [facility] (calc) [place] Albumin/globulin ratio 2.0 1.0 - 2.5 (calc) [facility] [place] Total bilirubin 0.5 0.2 - 1.2 mg/dL [facility] [employer] [place] Alkaline phosphatase 70 33 - 130 U/L [facility] [place] AST 20 10 - 35 U/L [employer] [facility] ALT 15 6 - 29 U/L [facility] [place] Specimen Blood Resulting Agency Comment Performing Organization Information: Site ID: [id number] Name: [facility] Address: [address] [place] [phone] Director: Yeny Huff MD Performing Organization Address [facility] Centercode Phone Number [facility] [place] [phone] XR Shoulder 2+ Vw Right (06/15/2017 2:34 PM) Narrative Performed At [facility], lateral, oblique x-rays are done of the right small finger.These RADIANT x-rays demonstrate satisfactory reduction of a left small finger fracture and satisfactory reduction of the proximal interphalangeal joint of the left small finger.There is advanced arthritis at the first carpometacarpal joint. Performing Organization Address City/State/Zipcode Phone Number [facility] [address] [place] [address] ORTHOPEDIC INJURY TREATMENT (06/15/2017 2:10 PM) Narrative Performed At Layla Parada MD 06/15/20173:20 PM Orthopedic Injury Treatment Date/Time: 06/15/2017 3:04 PM Performed by: LAYLA PARADA Authorized by: LAYLA PARADA Consent given by: patient Site marked: site marked Timeout: Immediately prior to procedure a time out was called to verify the correct patient, procedure, equipment, patient support specialist and site/side marked as required Injury Location [...] [facility] Atrial rate 47 [facility] MO interval 156 [facility] QRSD interval 106 [facility] QT interval 500 [facility] QTC interval 442 [facility] P axis 1 82 [facility] QRS axis 1 -46 [facility] M[facility] T wave axis 55 [facility] EKG impression Marked sinus bradycardia-Pulmonary disease [facility] MUSE pattern-Left anterior fascicular block-Abnormal ECG-No previous ECGs available- Performing Organization Address City/State/Zipcode Phone Number [facility] MUSE [address] [place] [address] Not[facility] Home [facility] (02/08/2017) Narrative Performed At [...] of 1.6. IMPRESSION: Normal bone density exam. [id number] Procedure Note Interface, Radiology Results Incoming - [...] of 1.6. IMPRESSION: Normal bone density exam. [id number] Performing Organization Address City/State/Zipcode Phone Number [facility] [address] [place] [address] Pv carotid duplex (01/21/2017 1:15 PM) Narrative [...] elevated velocities and ratio. Please see above. [facility]-[id number] Procedure Note Hm Interface, Radiology Results Incoming [...] elevated velocities and ratio. Please see above. [facility]-[id number] Performing Organization Address City/State/Zipcode Phone Number [facility] [address] [place] [address] MRI Lumbar Spine Wo Contrast (01/21/2017 12:47 PM) Narrative Performed At [facility] EXAM:MRI LUMBAR SPINE WO CONTRAST COMPARISON: None. [...] be evaluated because of the metal artifact. [facility]-[id number] Procedure Note Interface, Radiology Results Incoming - [...] be evaluated because of the metal artifact. [facility]-[id number] Performing Organization Address City/State/Zipcode Phone Number [facility] [address] [place] [address] MRI Thoracic Spine Wo Contrast (01/21/2017 12:47 [...] levels without focal protrusion or cord compression. [facility]-[id number] Procedure Note Interface, Radiology Results Incoming - [...] levels without focal protrusion or cord compression. [facility]-[id number] Performing Organization Address City/State/Zipcoky Phone Number [facility] [address] [place] [address] after 12/26/2016 Insurance Payer Benefit Plan / Group Subscriber ID Type Phone Address [facility] xxxxxxxxxxx MEDICARE MEDICARE PART A AND B xxxxxxxxxx Medicare [place], [place] [phone] [address]
--- OUTSIDE RECORDS SUMMARY | 2017-12-27 15:46 | XMS REPORT | Continuity of Care Document ---
[...] Spine GERD (<span Active Problem 10/29/2017 Greater ID="[id number]"> [facility], Confirmed</span>) Ortho and Spine Hypertension Active Problem [...] [facility] (<span A UTI 2-3x [place], ID="[id number]"> A YEAR Ortho and Confirmed</span>)< Spine sup>2</sup> TIA (<span Resolved Problem 10/29/2017 x2 [facility] ID="[id number]"> [facility], Confirmed</span>)< Ortho and sup>3</sup> Spine Urinary [...] Ortho cap, 1 and Refill(s), Spine Pharmacy: [facility]/pharmacy #[id number] tizanidine 4 mg 4 mg=1 tab, PO, Active oral tablet Q8H, PRN for 2018 Ortho muscle spasms, # and 90 tab, 0 Spine Refill(s), Pharmacy: [facility]/pharmacy #[id number] Docusate Sodium 100 mg=1 cap, Active 100 MG Oral PO, BID, # 60 2018 Ortho Capsule [Colace] cap, 1 and Refill(s), Spine Pharmacy: [facility]/pharmacy #[id number] Sertraline 150 mg, 1.5 tab, Inactive [...] not exceed 4gm/day of acetaminophen. (Same as: Garrett 325/10) Aluminum 30 ml, Route: No Longer Hydroxide 40 PO, Drug Form: Active 2018 Ortho MG/ML / Magnesium SUSP, Dosing and Hydroxide 40 Weight 70.455, Spine MG/ML / kg, Q4H, PRN Simethicone 4 Indigestion, MG/ML Oral Start date: Suspension 09/16/17 11:34:00 CDT, Duration: 30 day, Stop date: 10/16/17 11:33:00 CDTNotes: (aluminum hydroxide-magnes ium hyd- simethicone [phone]/5ml 30 ml ud RILEY) Dulcolax Laxative 5 [...] 2017 Ortho Initial Loading and Dose: 0.4mg, PROGRAM REVIEW DIRECTOR Spine Dose: 0.2 mg, PROGRAM REVIEW DIRECTOR Lockout: 10 minutes, Continuous Basal Rate: 0 mg, 4 Hour Limit (In MG): 6, Drug Form: INJ, Continuous, Start date: 09/16/17 11:34:00 CDT, Duration: 30 day, Stop date: 10/16/17...Notes : (Same as: Dilaudid) conc=0.5 mg/ml Hydromorphone PROGRAM REVIEW DIRECTOR Dose: ;Delay: ;Basal: dexamethasone Route: IV, Drug [...] EXAM: XR CHEST 1 VIEW 09/16 - [facility] DX DX /2017 [facility] DATE: 09/16/2017 8:17 AM CDT [...] ALANINE 19 unit/L 0 - 65 08/27 [facility] AMINOTRANSFE /2017 and Spine RASE CHEM PANEL [...] UA 0.2 EU/dL 0.1 - 1.0 08/27 [facility] STOOL Urobilinogen and Spine URINE AND UA [...] Intact pedicle screw fusion at L3-L4. SL: [id number] Spine Spine lumbar Spine lumbar myelogram DX [...] post myelogram CT for additional details. SL: [id number] Vital Signs Vital Sign Value Date Comments [...] Type Number For Provider Date Date Visit [facility] Outpatient [id number] Caden 07/23 07/24 [facility] [place] [facility] [place] [facility] [id number] Caden 08/11 08/12 [facility] [address] [facility] Inpatient [id number] Caden 09/16 09/17 [facility] Procedures Procedure Code Date Perfomer Comments Source Cataract extraction [id number] [facility] and insertion of [place] intraocular lens Hysterectomy [id number] [facility] [place] ORIF - Open [id number] [facility] reduction and [place] internal fixation of fracture Spinal fusion [id number] [facility] [place] Suspension of [id number] [facility] bladder [place] Cataract extraction [id number] [facility] and and insertion of Spine intraocular lens Hysterectomy [id number] Ortho and Spine ORIF - Open [id number] [facility] and reduction and Spine internal fixation of fracture Spinal fusion [id number] [facility] Ortho and Spine Suspension of [id number] [facility] Ortho and bladder Spine
[2017-12-27] MEDS ORDERED: TRAZODONE 50 MG TABLET PO PRN (15:55)
[2017-12-27] MEDS: METOPROLOL XL 50 MG TAB PO SCH (17:58)
[2017-12-27] MEDS: AMOXICILLIN 250 MG/5 ML OraL Susp PO SCH (17:58)
[2017-12-27 18:15] VITALS: BMI 22.4
[2017-12-27] MEDS: ENOXAPARIN 40 MG/0.4 ML SQ SCH (19:03)
[2017-12-27] MEDS: ATORVASTATIN 40 MG TAB PO SCH (20:42)
[2017-12-27] MEDS: GABAPENTIN 100 MG CAP PO SCH (20:42)
[2017-12-27] MEDS: MINOXIDIL 2.5 MG TAB PO SCH (20:42)
[2017-12-27] MEDS ORDERED: ENOXAPARIN 40 MG/0.4 ML SQ SCH (21:00)
[2017-12-28] MEDS: AMOXICILLIN 250 MG/5 ML OraL Susp PO SCH ×2 (00:38→10:00)
--- NOTE | 2017-12-28 02:27 | FAST ---
SHIFT START DATE/TIME: 12/27/2017 19:00 (CDT) SHIFT END DATE/TIME: 12/28/2017 07:00 (CDT) NAME JUANA MARQUEZ DATE OF : 1935 DATE OF ADMISSION: 12/27/2017 15:41 (CDT) PHONE: AGE: 82 N# [id number] GENDER: Female ENCOUNTER PHYSICIAN: Dr. Arun Joshua M.D. ADMISSION DIAGNOSIS: - Debility 16 - Debility (16) Multiple Falls. EATING: Activity did not occur on this shift EATING - SCORE: 0-UNK GROOMING: Wash, rinse, and dry hands GROOMING - STEP 1: Does the patient require assistance when grooming? Yes. GROOMING - STEP 2: Does the patient require the assistance of a helper? Yes. GROOMING - STEP 3: How much assistance does the patient require from the helper? Cuing, coaxing, instructions, or encour agement for completion of grooming GROOMING - SCORE: 5-SUP BATHING: Activity did not occur on this shift BATHING - SCORE: 0-UNK DRESSING - UPPER BODY: Patient is not dressing in public clothing ARTICLES SCORE Total number of steps: 0 DRESSING - UPPER BODY - SCORE: 0-UNK DRESSING - LOWER BODY: Patient is not dressing in public clothing ARTICLES SCORE Total number of steps: 0 DRESSING - LOWER BODY - SCORE: 0-UNK TOILETING: TOILETING - STEP 1: Does the patient require assistance with toileting? Yes. TOILETING - STEP 2: Does the patient require the assistance of a helper? Yes. TOILETING - STEP 3: How much assistance does the patient require from the helper? Hands-on assistance from the helper TOILETING - STEP 4: Of the 3 tasks: 1) Adjusting clothing prior to use, 2) Cleansing of perineal area, 3) Adjusting clot khalida after use; How many tasks does the patient perform WITHOUT assistance of the helper? No tasks; h elper performs all three tasks TOILETING - SCORE: 1-DEP BLADDER MANAGEMENT: [place] removes incontinent device (Depends, pull ups, etc.); cleans the patient after accident / inco ntinent episode; and, applies new incontinent device. BLADDER MANAGEMENT - SCORE: 1-DEP BLADDER MANAGEMENT - FREQUENCY OF ACCIDENTS: BLADDER MANAGEMENT(FA) - STEP 1: How many accidents has the patient had during the current shift? 1 BOWEL MANAGEMENT: BOWEL MANAGEMENT - STEP 1: Does the patient control bowels completely and intentionally without equipment devices or medications AND is always continent? No. BOWEL MANAGEMENT - STEP 2: Does the patient require the assistance of a helper? Yes. BOWEL MANAGEMENT - STEP 3: How much assistance does the patient require from the helper? Patient requires minimal contact assist ance / incidental help to maintain an external device such as removing / applying wafer BOWEL MANAGEMENT - SCORE: 4-MIN TRANSFERS: BED, CHAIR, WHEELCHAIR: TRANSFERS: BED, CHAIR, WHEELCHAIR - STEP 1: Does the patient require assistance with bed, chair, or wheelchair transfers? Yes. TRANSFERS: BED, CHAIR, WHEELCHAIR - STEP 2: Does the patient require the assistance of a helper? Yes. TRANSFERS: BED, CHAIR, WHEELCHAIR - STEP 3: How much assistance does the patient require from the helper? Lifting of the patient TRANSFERS: BED, CHAIR, WHEELCHAIR - STEP 4: Does the helper lift the patient ONLY up? ONLY down? Up AND Down? Up AND Down. TRANSFERS: BED, CHAIR, WHEELCHAIR - SCORE: 2-MAX TRANSFERS: TOILET: TRANSFERS: TOILET - STEP 1: Does the patient require assistance with toilet transfers? Yes. TRANSFERS: TOILET - STEP 2: Does the patient require the assistance of a helper? Yes. TRANSFERS: TOILET - STEP 3: How much assistance does the patient require from the helper? Patient performs less than half of the transferring tasks TRANSFERS: TOILET - STEP 4: Does the patient require total assistance for the toilet transfer such as the helper doing basically all the lifting? No. TRANSFERS: TOILET - SCORE: 2-MAX TRANSFERS: SHOWER: Activity did not occur on this shift TRANSFERS: SHOWER - SCORE: 0-UNK TRANSFERS: TUB: Activity did not occur on this shift TRANSFERS: TUB - SCORE: 0-UNK LOCOMOTION: WALK: Activity did not occur on this shift LOCOMOTION: WALK - SCORE: 0-UNK LOCOMOTION: WHEELCHAIR: Activity did not occur on this shift LOCOMOTION: WHEELCHAIR - SCORE: 0-UNK COMPREHENSION: COMPREHENSION: TYPE: Both COMPREHENSION - STEP 1: Does the patient require help to understand complex and abstract ideas (such as current events, finan mitra, discharge planning, medical issues, relationships, etc)? Yes. COMPREHENSION - STEP 2: Does the patient require help to understand questions or statements about basic needs or ideas (such as hunger, thirst, sleep, safety, daily schedule, room location, or discomfort) half or more of the t janiya? No. COMPREHENSION - STEP 3: How often does the patient need help to understand directions and conversation about basic needs? 25% - 49% of the time COMPREHENSION - SCORE: 3-MOD EXPRESSION EXPRESSION: TYPE: Both EXPRESSION - STEP 1: Does the patient require help expressing complex and abstract ideas (such as current events, finances , discharge planning, medical issues, relationships, etc)? No. EXPRESSION - STEP 2: Does the patient need extra time, require an assistive device (such as augmentive communication syste m or a communication board), OR does s/he have mild difficulty expressing complex and abstract ideas (including mild dysarthria or mild word-find problems)? Yes. EXPRESSION - SCORE: 6-HIPOLITO SOCIAL INTERACTION: SOCIAL INTERACTION - STEP 1: Does the patient require a helper to interact with others in social and therapeutic situations? No. SOCIAL INTERACTION - STEP 2: Does the patient need extra time in social situations, OR does s/he interact with staff, other patien ts, and family members ONLY in structured environments, OR does s/he require medication for social in teraction? Yes, patient requires medication for social interaction SOCIAL INTERACTION - SCORE: 6-HIPOLITO PROBLEM SOLVING: PROBLEM SOLVING - STEP 1: Does the patient need help to solve complex problems such as managing a checking account or confronti ng interpersonal problems? Yes. PROBLEM SOLVING - STEP 2: Does the patient solve basic routine problems half or more of the time? Yes. PROBLEM SOLVING - STEP 3: How often does the patient need help to solve basic routine problems? 25%-49% of the time PROBLEM SOLVING - SCORE: 3-MOD MEMORY: MEMORY - STEP 1: Does the patient need help to remember frequently encountered people, daily routines, and executing r equests? Yes. MEMORY - STEP 2: How often does the patient need help to remember frequently encountered people, daily routines, and e xecuting requests? 25% - 49% of the time MEMORY - SCORE: 3-MOD SIGNATURE PANEL: The following modified sections: Eating - Score, Grooming - Score, Dressing - Upper Body - Score, Clement ssing - Lower Body - Score, Toileting - Score, Bladder Management - Score, Bowel Management - Score, Transfers: Bed, Chair, Wheelchair - Score, Transfers: Toilet - Score, Transfers: Shower - Score, Graham sfers: Tub - Score, Locomotion: Walk - Score, Locomotion: Wheelchair - Score, Comprehension - Score, Expression - Score, Social Interaction - Score, Problem Solving - Score, Memory - Score were [electro nically] signed by Chica Mann CNA on WedDec 28 2017 02:25:59 GMT-0500 (Central Daylight Time)
[2017-12-28] MEDS: METOPROLOL XL 50 MG TAB PO SCH ×2 (05:25→16:59)
[2017-12-28] MEDS: LEVOTHYROXINE SOD 0.1 MG TAB PO SCH (05:26)
[2017-12-28 06:01] LABS: Absolute Lymphocytes (CBC) 1.2 K/uL (0.7-4.9); Absolute Monocytes 0.9 K/uL (0.1-1.3); Absolute Neutrophil 5.6 K/uL (1.8-8.0); Basophils % 0.3 % (0-1.3); Eosinophils % 0.3 % (0-4.4); Hematocrit 30.1 % (36.0-45.0); Lymphocytes % 15.5 % (15.3-44.8); MCV 78.2 fL (80-100); RBC Red Blood Cell Count 3.85 M/uL (3.86-4.86)
[2017-12-28 06:21] LABS: Magnesium 1.9 mg/dL (1.8-2.4); Prealbumin 15.9 mg/dL (20-40)
[2017-12-28] MEDS: SERTRALINE HCL 100 MG TAB PO SCH (08:30)
[2017-12-28] MEDS: LORATADINE 10 MG TAB PO SCH (08:30)
[2017-12-28] MEDS: GABAPENTIN 100 MG CAP PO SCH ×3 (08:31→20:15)
[2017-12-28] MEDS: VALSARTAN 80 MG TAB PO SCH (08:31)
[2017-12-28] MEDS: CLOPIDOGREL 75 MG TABLET PO SCH (08:31)
[2017-12-28] MEDS: SOLIFENACIN SUCCINATE 10 MG PO SCH (08:32)
[2017-12-28] MEDS: MINOXIDIL 2.5 MG TAB PO SCH ×2 (10:00→20:14)
[2017-12-28] MEDS ORDERED: TRAZODONE 50 MG TABLET PO PRN (13:29)
--- NOTE | 2017-12-28 14:14 | FAST ---
SHIFT START DATE/TIME: 12/28/2017 19:00 (CDT) SHIFT END DATE/TIME: 12/29/2017 07:00 (CDT) NAME JUANA MARQUEZ DATE OF : 1935 DATE OF ADMISSION: 12/27/2017 15:41 (CDT) PHONE: AGE: 82 N# [id number] GENDER: Female ENCOUNTER PHYSICIAN: Dr. Arun Johsua M.D. ADMISSION DIAGNOSIS: - Debility 16 - Debility (16) Multiple Falls. EATING: EATING - STEP 1: Does the patient require assistance when eating? Yes. EATING - STEP 2: Does the patient require the assistance of a helper? Yes. EATING - STEP 3: Does the patient perform half or more of the eating tasks? Yes. EATING - STEP 4: Does the patient need only supervision, cuing, coaxing OR help to apply an orthosis OR help to cut fo od, open containers, pour liquids, or butter bread? Yes. EATING - SCORE: 5-SUP GROOMING: Comb/brush hair Wash, rinse, and dry face GROOMING - STEP 1: Does the patient require assistance when grooming? Yes. GROOMING - STEP 2: Does the patient require the assistance of a helper? No. The patient only requires an assistive devic e, OR takes more than reasonable time to groom, OR there is a concern for safety as the patient groom s GROOMING - SCORE: 6-HIPOLITO BATHING: Activity did not occur on this shift BATHING - SCORE: 0-UNK DRESSING - UPPER BODY: Bra (three steps) T-shirt/pullover shirt (four steps) ARTICLES SCORE Total number of steps: 7 DRESSING - UPPER BODY - STEP 1: Does the patient require help when dressing above the waist? Yes. DRESSING - UPPER BODY - STEP 2: Does the patient require the assistance of a helper? Yes. DRESSING - UPPER BODY - STEP 3: Does the helper touch the patient while dressing? Yes. DRESSING - UPPER BODY - STEP 4: How many of the total steps does the patient complete on his/her own? 4 DRESSING - UPPER BODY - SCORE: 3-MOD DRESSING - LOWER BODY: Elastic waist pants (three steps) Underwear (three steps) ARTICLES SCORE Total number of steps: 6 DRESSING - LOWER BODY - STEP 1: Does the patient require help when dressing below the waist? Yes. DRESSING - LOWER BODY - STEP 2: Does the patient require the assistance of a helper? Yes. DRESSING - LOWER BODY - STEP 3: Does the helper touch the patient while dressing? Yes. DRESSING - LOWER BODY - STEP 4: How many of the total steps does the patient complete on his/her own? 2 DRESSING - LOWER BODY - STEP 5: Does patient require total assistance for dressing below the waist such as the helper holding clothin g and performing basically all the activities? Yes. DRESSING - LOWER BODY - SCORE: 1-DEP TOILETING: TOILETING - STEP 1: Does the patient require assistance with toileting? Yes. TOILETING - STEP 2: Does the patient require the assistance of a helper? Yes. TOILETING - STEP 3: How much assistance does the patient require from the helper? Hands-on assistance from the helper TOILETING - STEP 4: Of the 3 tasks: 1) Adjusting clothing prior to use, 2) Cleansing of perineal area, 3) Adjusting clot khalida after use; How many tasks does the patient perform WITHOUT assistance of the helper? One task TOILETING - SCORE: 2-MAX BLADDER MANAGEMENT: [place] removes incontinent device (Depends, pull ups, etc.); cleans the patient after accident / inco ntinent episode; and, applies new incontinent device. BLADDER MANAGEMENT - SCORE: 1-DEP BLADDER MANAGEMENT - FREQUENCY OF ACCIDENTS: BLADDER MANAGEMENT(FA) - STEP 1: How many accidents has the patient had during the current shift? 2 BOWEL MANAGEMENT: Activity did not occur on this shift BOWEL MANAGEMENT - SCORE: 7-IND BOWEL MANAGEMENT - FREQUENCY OF ACCIDENTS: BOWEL MANAGEMENT(FA) - STEP 1: How many accidents has the patient had during the current shift? 0 TRANSFERS: BED, CHAIR, WHEELCHAIR: TRANSFERS: BED, CHAIR, WHEELCHAIR - STEP 1: Does the patient require assistance with bed, chair, or wheelchair transfers? Yes. TRANSFERS: BED, CHAIR, WHEELCHAIR - STEP 2: Does the patient require the assistance of a helper? Yes. TRANSFERS: BED, CHAIR, WHEELCHAIR - STEP 3: How much assistance does the patient require from the helper? Lifting of the patient TRANSFERS: BED, CHAIR, WHEELCHAIR - STEP 4: Does the helper lift the patient ONLY up? ONLY down? Up AND Down? Up AND Down. TRANSFERS: BED, CHAIR, WHEELCHAIR - SCORE: 2-MAX TRANSFERS: TOILET: TRANSFERS: TOILET - STEP 1: Does the patient require assistance with toilet transfers? Yes. TRANSFERS: TOILET - STEP 2: Does the patient require the assistance of a helper? Yes. TRANSFERS: TOILET - STEP 3: How much assistance does the patient require from the helper? Patient performs half or more of the tr ansferring tasks TRANSFERS: TOILET - STEP 4: Does the patient need only incidental help such as contact guard or steadying during toilet transfer? Yes. TRANSFERS: TOILET - SCORE: 4-MIN TRANSFERS: SHOWER: Activity did not occur on this shift TRANSFERS: SHOWER - SCORE: 0-UNK TRANSFERS: TUB: Activity did not occur on this shift TRANSFERS: TUB - SCORE: 0-UNK LOCOMOTION: WALK: Activity did not occur on this shift LOCOMOTION: WALK - SCORE: 0-UNK LOCOMOTION: WHEELCHAIR: LOCOMOTION: WHEELCHAIR - STEP 1: Does the patient need help to go 150 feet in a wheelchair? Yes. LOCOMOTION: WHEELCHAIR - STEP 2: How much assistance does the patient need from the helper? Only incidental help such as around corner s or over thresholds LOCOMOTION: WHEELCHAIR - SCORE: 4-MIN COMPREHENSION: COMPREHENSION: TYPE: Both COMPREHENSION - STEP 1: Does the patient require help to understand complex and abstract ideas (such as current events, finan mitra, discharge planning, medical issues, relationships, etc)? Yes. COMPREHENSION - STEP 2: Does the patient require help to understand questions or statements about basic needs or ideas (such as hunger, thirst, sleep, safety, daily schedule, room location, or discomfort) half or more of the t janiya? Yes. COMPREHENSION - STEP 3: Is the patient basically able to understand and respond appropriately and consistently? Yes. COMPREHENSION - SCORE: 2-MAX EXPRESSION EXPRESSION: TYPE: Both EXPRESSION - STEP 1: Does the patient require help expressing complex and abstract ideas (such as current events, finances , discharge planning, medical issues, relationships, etc)? Yes. EXPRESSION - STEP 2: Does the patient require help to express basic necessities or ideas (such as hunger, thirst, sleep, s afety, daily schedule, room location, or discomfort) half or more of the time? No. EXPRESSION - STEP 3: How often does the patient need help to express directions and conversation about basic needs? 10-24% of the time EXPRESSION - SCORE: 4-MIN SOCIAL INTERACTION: SOCIAL INTERACTION - STEP 1: Does the patient require a helper to interact with others in social and therapeutic situations? No. SOCIAL INTERACTION - STEP 2: Does the patient need extra time in social situations, OR does s/he interact with staff, other patien ts, and family members ONLY in structured environments, OR does s/he require medication for social in teraction? Yes, patient needs extra time SOCIAL INTERACTION - SCORE: 6-HIPOLITO PROBLEM SOLVING: PROBLEM SOLVING - STEP 1: Does the patient need help to solve complex problems such as managing a checking account or confronti ng interpersonal problems? Yes. PROBLEM SOLVING - STEP 2: Does the patient solve basic routine problems half or more of the time? Yes. PROBLEM SOLVING - STEP 3: How often does the patient need help to solve basic routine problems? 10%-24% of the time PROBLEM SOLVING - SCORE: 4-MIN MEMORY: MEMORY - STEP 1: Does the patient need help to remember frequently encountered people, daily routines, and executing r equests? Yes. MEMORY - STEP 2: How often does the patient need help to remember frequently encountered people, daily routines, and e xecuting requests? 10% - 24% of the time MEMORY - SCORE: 4-MIN SIGNATURE PANEL: The following modified sections: Eating - Score, Grooming - Score, Bathing - Score, Dressing - Upper Body - Score, Dressing - Lower Body - Score, Toileting - Score, Bladder Management - Score, Bowel Man agement - Score, Transfers: Bed, Chair, Wheelchair - Score, Transfers: Toilet - Score, Transfers: Laila wer - Score, Transfers: Tub - Score, Locomotion: Walk - Score, Locomotion: Wheelchair - Score, Compre hension - Score, Expression - Score, Social Interaction - Score, Problem Solving - Score, Memory - Sc ore were [electronically] signed by La Jackson C.N.A. on WedDec 28 2017 14:13:50 T-0500 (Centra l Daylight Time)
[2017-12-28] MEDS: ENOXAPARIN 40 MG/0.4 ML SQ SCH (16:13)
[2017-12-28] MEDS: AMOXICILLIN TRIHYDR 250 MG CAP PO SCH (17:00)
--- NOTE | 2017-12-28 18:37 | R.HP ---
FACILITY: [facility] ENCOUNTER DATE AND TIME: 12/28/2017 18:33 (CDT) MR#: [id number] NAME JUANA MARQUEZ ADDRESS: [address] [place] [address] CITY: [place] [address]IP [id number] PHONE: DATE OF : 1935 AGE: 82 SSN# [id number] GENDER: Female DEXTERITY Right-handed MARITAL STATUS RACE White PRE-HOSPITAL LIVING SETTING 01 - Home (private home/apt. board/care, assisted living, mcc, transitional living) PRE-HOSPITAL LIVING WITH Family/Relatives ENCOUNTER PHYSICIAN: Dr. Arun Joshua M.D. 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 is a 82 yo Right-handed white female. On 12/20/2017 she was admitted to [facility] with diagnosis Multiple Falls. Her impairment category is Debility 16 - Debility (16). Pre-morbidly, Pt. was independent/mod-I in Communication, Social Cognition, Self-Care, Locomotion, Sp hincter Control, and Transfers Control; and she had good Sphincter Control. Currently, she has deficits of Balance, Locomotion, Endurance, Safety Awareness, Transfers Control, a nd Self-Care. Pt. is now referred to [facility] for acute in-patient rehabilitation in order to maximize patient's functional independence in activities of daily living, strength, ROM, and mobi lity. Patient has realistic goal of being discharged at assistance level 5-sup to reside at Home with Fami ly/Relatives. 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 SOCIAL HISTORY: - Home Living Family/Relatives REVIEW OF SYSTEMS: - Gen No Chills No Fatigue No Fever - Eyes No Double Vision No itchiness - ENMT No Difficulty Swallowing - CVS No Chest Discomfort No Chest Pain Fatigue No Weight Gain - Resp No Cough No Shortness of Breath - GI Continent No Abdominal Pain No Constipation No Diarrhea - Continent No Kidney Pain No Painful Urination No Urinary Urgency - MSK No Joint Pain No Muscle Cramps Stiffness - Skin No Itching No Rash No Suspicious Lesions - Neuro Coordination Difficulty No Difficulty with Concentration No Memory Loss No Seizures Weakness - Psych No Anxiety No Depression No HIV Exposure No Persistent Infections No Seasonal Allergies - Endo No Cold/Heat Intolerance No Excessive Hunger No Excessive Thirst No Excessive Urination PHYSICAL EXAM - Gen Alert and awake Lying in bed No apparent distress Oriented to: person, time, and place - Skin No skin breakdown. Normacephalic - Eyes No abnormalities - ENMT No abnormalities - Neck No abnormalities - CVS RRR - Chest No abnormalities - Resp Clear to auscultation - Abd Soft - GI Non distended Deferred - No abnormalities - Ext Mild bilateral lower extremity weakness. - MSK 4+/5 weakness in both lower extremities. - Neuro 4/5 strength bilaterally lower extremities. - Psych No abnormalities VITAL SIGNS Temperature: 98.1 F SBP/DBP: 151/63 Pulse: 53 Resp: 16 NURSING: - Shower allowing shower ACTIVITIES OOB only with supervision FUNCTIONAL STATUS: - Self-Care A. Eating Ind Ind B. Grooming Ind Ind C. Bathing Ind sup D. Dressing - Upper Ind sup E. Dressing - Lower Ind sup F. Toileting Ind sup - Sphincter Control G: Bladder control Ind Ind H: Bowel control Ind Ind - Transfers Control I. Bed/Chair/Wheelchair Ind sup J. Toilet Ind sup K. Tub/Shower Ind ADNO - Locomotion L. Walk/Wheelchair (B) Ind sup M. Stairs Ind ADNO - Communication N. Comprehension (B) Ind Varghese O. Expression (B) Ind Varghese - Social Cognition P. Social Interaction Ind Varghese Q. Problem Solving Ind Varghese R. Memory Ind Varghese - Endurance Fair - Balance Fair - Safety Awareness Fair CURRENT FUNC. DEFICITS: Balance, Locomotion, Endurance, Safety Awareness, Transfers Control, and Self-Care ASSESSMENT: Pt. is a 82 yo Right-handed white female.On 12/20/2017 she was admitted to [facility] with diagnosis Multiple Falls.Her impairment category is Debility 16 - Debility (16).Pre-morb idly, Pt. was independent/mod-I in Communication, Social Cognition, Self-Care, Locomotion, Sphincter Control, and Transfers Control; and she had good Sphincter Control.Currently, she has deficits of Bal ance, Locomotion, Endurance, Safety Awareness, Transfers Control, and Self-Care.Pt. is now referred t [facility] for acute in-patient rehabilitation in order to maximize patient' s functional independence in activities of daily living, strength, ROM, and mobility.- Rehab Goal Patient has realistic goal of being discharged at assistance level 5-sup to reside at Home with Fami ly/Relatives. REHAB PLAN: - Physical Therapy Gait dysfunction - to improve, our physical therapists will perform initial evaluation of pt's status upon admission and devise an individualized program for Gait Training, and Wheel Chair mobility Inability to transfer - to improve, our physical therapists will perform initial evaluation of pt's s tatus upon admission and devise an individualized program for Bed mobility Need for home safety evaluation - to improve, our physical therapists will perform initial evaluation of pt's status upon admission and devise an individualized program for Home Evaluation Need in caregiver upon discharge - to improve, our physical therapists will perform initial evaluatio n of pt's status upon admission and devise an individualized program for Caregiver Training New precaution - to improve, our physical therapists will perform initial evaluation of pt's status u yumiko admission and devise an individualized program for Patient precaution education Poor balance - to improve, our physical therapists will perform initial evaluation of pt's status upo n admission and devise an individualized program for Balance Training Poor endurance - to improve, our physical therapists will perform initial evaluation of pt's status u yumiko admission and devise an individualized program for Endurance Training Weakness - to improve, our physical therapists will perform initial evaluation of pt's status upon ad mission and devise an individualized program for Aquatic Therapy, Neuromuscular Reeducation, and Stre ngthening Achieving independence - to improve, our physical therapists will perform initial evaluation of pt's status upon admission and devise an individualized program for Community Reintegration Activities - Occupational Therapy ADL deficits - to improve, our occupation therapists will perform initial evaluation of pt's status u yumiko admission and devise an individualized program for Bathing, Bed mobility, Community Reintegration , Cooking, Dressing, Eating, Fine Motor Skills, Grooming, Homemaking, Kitchen Mobility, Laundry, Haley ent Education, Safety Awareness, Splinting - Positioning, Transfers(Toilet, Tub, Shower), and Wheel C hair Management Need for wound care specialist - to improve, our occupation therapists will perform initial evaluation of pt's s tatus upon admission and devise an individualized program for Caregiver Training Weakness - to improve, our occupation therapists will perform initial evaluation of pt's status upon admission and devise an individualized program for Aquatic Therapy, Balance, Endurance, UE ROM, and U E strengthening MEDICAL PLAN: - Diet Type Start Regular - Diet - Liquid Texture Start Regular - Tube Feed Start N/A - Diet - Solid Texture Regular - Shower shower DISCHARGE PLAN: - Estimated Length of Stay (days) 13. - Consensus on plan Discharge plan has been discussed with primary caregiver. Patient/Family is in agreement with the kermit n. Primary caregiver is in agreement with the plan. - Patient/Family Goals Return home with assistance. - Planned Living Setting Upon Discharge Home, to live with Family/Relatives. SIGNATURE PANEL: (CDT)
--- NOTE | 2017-12-28 18:40 | PAPE ---
PATIENT: [facility] MR# [id number] REFERRING DOCTOR jesus Mendosa EVALUATION DATE AND TIME 12/28/2017 18:37 (CDT) NAME JUANA MARQUEZ DATE OF 1935 AGE 82 PHONE N# [id number] GENDER female EVALUATING PHYSICIAN Dr. Arun Joshua M.D. 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 PATIENT NEEDS CLOSE MEDICAL SUPERVISION BY A REHABILITATION PHYSICIAN FOR: Bowel and Bladder Management Coordination of Treatment Team Medical and Co-Morbidity Management DVT Management Pain Management PATIENT REQUIRES 24X7 REHAB NURSING FOR MEDICAL AND FUNCTIONAL MGT. OF THE FOLLOWING DEFICITS: ADL's Ambulation Bowel and Bladder Management Cognition Communication Disease Management Medication Management Patient/Family Education Providing Safe Environment Transfers Pain Management PATIENT REQUIRES INTENSIVE, COORDINATED INTERDISCIPLINARY APPROACH TO REHAB: Arranging Home Equipment/Services Discharge Planning Family Intervention/Training Farm Products Shipper/Case Management LIST OF IDENTIFIED AND POTENTIAL PROBLEMS: Alteration in leisure activities Bladder, Incontinence Blood Pressure, Hypertension/hypotension Issues Bowel, Incontinence Infection, Actual or Potential Mobility Impaired Pain, Alteration in Comfort Self Care Deficit Skin Integrity, Actual or Potential Urinary Tract Infection (UTI), Actual or Potential RISK FOR COMPLICATIONS - Hypertension CVA. Hypotension. OK. TIA. INTERVENTIONS - Hypertension PATIENT COULD BE AT RISK FOR COMPLICATIONS FROM ADVERSE MEDICAL CONDITIONS DUE TO HIS/HER COMORBIDITI ES AND THE RIGORS OF THE INTENSIVE REHABILLITATION PROGRAM. METHODS OR INTERVENTIONS TO AVOID COMPLIC ATIONS INCLUDE: - Deep Vein Thrombosis (DVT) Prophylaxis therapy for prevention . Sequential Compression Device (SCD). TE D Hose. - Infection Clinical staff to assess and manage the signs and symptoms of infection including fever, redness, war mth, etc. - Urinary Tract Infection - Falls Patient will be evaluated for Fall Precautions and will be placed on Fall Precautions as indicated pe r protocol. - Skin Breakdown Nursing will assess skin daily using assessment tool and will place on Skin Breakdown Precautions as indicated per protocol. - Pain Clinical staff may employ non-medication methods such as massage, distraction, decrease stimulus, etc . as needed. Clinical staff will assess patient's pain level every shift per protocol to assess and e nsure pain management effectiveness. Medications will be given and the pain level re-assessed. PRELIMINARY PLAN OF CARE: - Physical Therapy Patient needs Physical Therapy for a daily minimum of 1.5 hours at least 5 out of 7 days, to improve: Mobility, Strengthening, Transfers, Stretching, ROM, Endurance, Ability to manage stairs, Gait, and Balance. - Rehabilitation Nursing Patient requires 24x7 Rehabilitation Nursing for: Pain Issues, Identifying and preventing risk factor s, Monitoring and reporting current medical conditions, Assisting with ambulation and transfer, Loni ting with all ADL-s, Teaching patients about disease process and medications, Family teaching, Provid ing safe environment, Bowel and Bladder Issues, Skin Integrity, and Medication Management. Patient needs Farm Products Shipper and/or Case Management for: Discharge Planning, Arranging Home Equipmen t or Services, and Family Interventions. - Dietary and Nutrition Services Patient needs Dietary and Nutrition Services for: Adequate Nutrition, Nutritional Supplements, and Nu tritional Education. - Occupational Therapy Patient needs Occupational Therapy for a daily minimum of 1.5 hours at least 5 out of 7 days, to impr ove Activities of Daily Living, including: Eating, Grooming, Bathing, Dressing, Toileting, Toilet Tra nsfers, Community Reintegration, Higher functional activities, Adaptive Equipment, Splinting, Househo ld Tasks, and Other activities as determined. POTENTIAL FUNCTIONAL GOALS FOR PATIENT TO ACHIEVE BY DISCHARGE: - Safety Precaution Patient will remain free from falls or injury at time of discharge. - Bed Mobility Patient will perform bed mobility at 4-Lucia level of assistance. - Transfers Patient will complete transfers from bed to chair at 4-Lucia level of assistance. - Mobility Patient will ambulate 150 ft with 4-Lucia level of assistance with RW. PATIENT REHAB POTENTIAL Expected level of measurable improvement will be of a practical value to patient's functional capacit y or adaptations to impairments Has a viable Discharge Plan Medically appropriate; condition is sufficiently stable to participate in intensive rehab program Patient is able and expected to receive 3 hours of individualized therapy daily on at least 5 of ever y 7 days Patient's prognosis for significant practical improvement within a reasonable period of time appears Good DISCHARGE PLAN: - Estimated Length of Stay (days) 13. - Consensus on plan Discharge plan has been discussed with primary caregiver. Patient/Family is in agreement with the kermit n. Primary caregiver is in agreement with the plan. - Patient/Family Goals Return home with assistance. - Planned Living Setting Upon Discharge Home, to live with Family/Relatives. CONCLUSION ON REHABILITATION NECESSITY: I have evaluated patient's pre-admission functional status and, comparing it to the patient's post-ad mission functional status now, I conclude that the pre-admission assessment was accurate. Patient's c ondition on admission supports the medical necessity of admission to IRF. It is safe to proceed with patient's therapy program. SIGNATURE PANEL: (CDT)
[2017-12-28] MEDS: MELATONIN 3 MG TABLET PO PRN (20:15)
[2017-12-28] MEDS: PROMOD 30 ML DOSE PO SCH (20:15)
[2017-12-28] MEDS: ATORVASTATIN 40 MG TAB PO SCH (20:15)
[2017-12-29] MEDS: AMOXICILLIN TRIHYDR 250 MG CAP PO SCH ×3 (00:33→16:41)
--- NOTE | 2017-12-29 03:05 | FAST ---
SHIFT START DATE/TIME: 12/29/2017 19:00 (CDT) SHIFT END DATE/TIME: 12/30/2017 07:00 (CDT) NAME JUANA MARQUEZ DATE OF : 1935 DATE OF ADMISSION: 12/27/2017 15:41 (CDT) PHONE: AGE: 82 N# [id number] GENDER: Female ENCOUNTER PHYSICIAN: Dr. Arun Joshua M.D. ADMISSION DIAGNOSIS: - Debility 16 - Debility (16) Multiple Falls. EATING: Activity did not occur on this shift EATING - SCORE: 0-UNK GROOMING: Comb/brush hair Oral care Wash, rinse, and dry face Wash, rinse, and dry hands GROOMING - STEP 1: Does the patient require assistance when grooming? Yes. GROOMING - STEP 2: Does the patient require the assistance of a helper? Yes. GROOMING - STEP 3: How much assistance does the patient require from the helper? Cuing, coaxing, instructions, or encour agement for completion of grooming GROOMING - SCORE: 5-SUP BATHING: Activity did not occur on this shift BATHING - SCORE: 0-UNK DRESSING - UPPER BODY: Patient is not dressing in public clothing ARTICLES SCORE Total number of steps: 0 DRESSING - UPPER BODY - SCORE: 0-UNK DRESSING - LOWER BODY: Patient is not dressing in public clothing ARTICLES SCORE Total number of steps: 0 DRESSING - LOWER BODY - SCORE: 0-UNK TOILETING: TOILETING - STEP 1: Does the patient require assistance with toileting? Yes. TOILETING - STEP 2: Does the patient require the assistance of a helper? Yes. TOILETING - STEP 3: How much assistance does the patient require from the helper? Hands-on assistance from the helper TOILETING - STEP 4: Of the 3 tasks: 1) Adjusting clothing prior to use, 2) Cleansing of perineal area, 3) Adjusting clot khalida after use; How many tasks does the patient perform WITHOUT assistance of the helper? No tasks; h ashley performs all three tasks TOILETING - SCORE: 1-DEP BLADDER MANAGEMENT: [place] removes incontinent device (Depends, pull ups, etc.); cleans the patient after accident / inco ntinent episode; and, applies new incontinent device. BLADDER MANAGEMENT - SCORE: 1-DEP BLADDER MANAGEMENT - FREQUENCY OF ACCIDENTS: BLADDER MANAGEMENT(FA) - STEP 1: How many accidents has the patient had during the current shift? 1 BOWEL MANAGEMENT: Activity did not occur on this shift BOWEL MANAGEMENT - SCORE: 7-IND TRANSFERS: BED, CHAIR, WHEELCHAIR: TRANSFERS: BED, CHAIR, WHEELCHAIR - STEP 1: Does the patient require assistance with bed, chair, or wheelchair transfers? Yes. TRANSFERS: BED, CHAIR, WHEELCHAIR - STEP 2: Does the patient require the assistance of a helper? Yes. TRANSFERS: BED, CHAIR, WHEELCHAIR - STEP 3: How much assistance does the patient require from the helper? Lifting of the patient TRANSFERS: BED, CHAIR, WHEELCHAIR - STEP 4: Does the helper lift the patient ONLY up? ONLY down? Up AND Down? Up AND Down. TRANSFERS: BED, CHAIR, WHEELCHAIR - SCORE: 2-MAX TRANSFERS: TOILET: TRANSFERS: TOILET - STEP 1: Does the patient require assistance with toilet transfers? Yes. TRANSFERS: TOILET - STEP 2: Does the patient require the assistance of a helper? Yes. TRANSFERS: TOILET - STEP 3: How much assistance does the patient require from the helper? Patient performs half or more of the tr ansferring tasks TRANSFERS: TOILET - STEP 4: Does the patient need only incidental help such as contact guard or steadying during toilet transfer? No. Patient needs more than incidental help TRANSFERS: TOILET - SCORE: 3-MOD TRANSFERS: SHOWER: Activity did not occur on this shift TRANSFERS: SHOWER - SCORE: 0-UNK TRANSFERS: TUB: Activity did not occur on this shift TRANSFERS: TUB - SCORE: 0-UNK LOCOMOTION: WALK: Activity did not occur on this shift LOCOMOTION: WALK - SCORE: 0-UNK LOCOMOTION: WHEELCHAIR: Activity did not occur on this shift LOCOMOTION: WHEELCHAIR - SCORE: 0-UNK COMPREHENSION: COMPREHENSION: TYPE: Both COMPREHENSION - STEP 1: Does the patient require help to understand complex and abstract ideas (such as current events, finan mitra, discharge planning, medical issues, relationships, etc)? Yes. COMPREHENSION - STEP 2: Does the patient require help to understand questions or statements about basic needs or ideas (such as hunger, thirst, sleep, safety, daily schedule, room location, or discomfort) half or more of the t janiya? No. COMPREHENSION - STEP 3: How often does the patient need help to understand directions and conversation about basic needs? 25% - 49% of the time COMPREHENSION - SCORE: 3-MOD EXPRESSION EXPRESSION: TYPE: Both EXPRESSION - STEP 1: Does the patient require help expressing complex and abstract ideas (such as current events, finances , discharge planning, medical issues, relationships, etc)? Yes. EXPRESSION - STEP 2: Does the patient require help to express basic necessities or ideas (such as hunger, thirst, sleep, s afety, daily schedule, room location, or discomfort) half or more of the time? No. EXPRESSION - STEP 3: How often does the patient need help to express directions and conversation about basic needs? 25-49% of the time EXPRESSION - SCORE: 3-MOD SOCIAL INTERACTION: SOCIAL INTERACTION - STEP 1: Does the patient require a helper to interact with others in social and therapeutic situations? No. SOCIAL INTERACTION - STEP 2: Does the patient need extra time in social situations, OR does s/he interact with staff, other patien ts, and family members ONLY in structured environments, OR does s/he require medication for social in teraction? Yes, patient requires medication for social interaction SOCIAL INTERACTION - SCORE: 6-H[place]OL[place]O PROBLEM SOLVING: PROBLEM SOLVING - STEP 1: Does the patient need help to solve complex problems such as managing a checking account or confronti ng interpersonal problems? Yes. PROBLEM SOLVING - STEP 2: Does the patient solve basic routine problems half or more of the time? Yes. PROBLEM SOLVING - STEP 3: How often does the patient need help to solve basic routine problems? 25%-49% of the time PROBLEM SOLVING - SCORE: 3-MOD MEMORY: MEMORY - STEP 1: Does the patient need help to remember frequently encountered people, daily routines, and executing r equests? Yes. MEMORY - STEP 2: How often does the patient need help to remember frequently encountered people, daily routines, and e xecuting requests? 25% - 49% of the time MEMORY - SCORE: 3-MOD SIGNATURE PANEL: The following modified sections: Eating - Score, Grooming - Score, Dressing - Upper Body - Score, Clement ssing - Lower Body - Score, Toileting - Score, Bladder Management - Score, Bowel Management - Score, Transfers: Bed, Chair, Wheelchair - Score, Transfers: Toilet - Score, Transfers: Shower - Score, Graham sfers: Tub - Score, Locomotion: Walk - Score, Locomotion: Wheelchair - Score, Comprehension - Score, Expression - Score, Social Interaction - Score, Problem Solving - Score, Memory - Score were [electro nically] signed by Chica Mann CNA on WedDec 29 2017 03:04:00 GMT-0500 (Central Daylight Time)
[2017-12-29] MEDS: METOPROLOL XL 50 MG TAB PO SCH ×2 (05:26→17:11)
[2017-12-29] MEDS: LEVOTHYROXINE SOD 0.1 MG TAB PO SCH (05:27)
[2017-12-29] MEDS: VALSARTAN 80 MG TAB PO SCH (08:00)
[2017-12-29] MEDS: SOLIFENACIN SUCCINATE 10 MG PO SCH (08:24)
[2017-12-29] MEDS: MINOXIDIL 2.5 MG TAB PO SCH ×2 (08:25→20:05)
[2017-12-29] MEDS: FE SULF/FA/VIT B COMP & C TAB PO SCH (08:26)
[2017-12-29] MEDS: GABAPENTIN 100 MG CAP PO SCH ×3 (08:27→20:04)
[2017-12-29] MEDS: LORATADINE 10 MG TAB PO SCH (08:27)
[2017-12-29] MEDS: CLOPIDOGREL 75 MG TABLET PO SCH (08:27)
[2017-12-29] MEDS: SERTRALINE HCL 100 MG TAB PO SCH (08:27)
[2017-12-29] MEDS: PROMOD 30 ML DOSE PO SCH ×2 (08:28→20:03)
[2017-12-29] MEDS: ACETAMINOPHEN 500 MG TAB PO PRN (10:02)
--- NOTE | 2017-12-29 10:41 | RAD REPORT ---
EXAM DESCRIPTION: Shoulder Right 2 View - 12/29/2017 10:29 am CLINICAL HISTORY: Fall, persistent right shoulder pain COMPARISON: None. TECHNIQUE: Internal and external rotation views of the right shoulder were obtained. FINDINGS: No fracture or dislocation of the proximal humerus. Marginal spurs are seen along the infe rior articular margin. Mild spurring and a few subcortical degenerative cysts are evident in the supe rolateral humeral head. AC joint degenerative changes are present with inferiorly directed spurring. There is degenerative change along the undersurface of the acromion as well. Acromial humeral joint s pace is narrowed. No abnormal soft tissue calcifications. No rib or upper lung parenchymal suspicious finding. No gross acute abnormality of the scapula. IMPRESSION: Prominent right shoulder degenerative change present as detailed. No fracture or acute f inding identifiable.
--- NOTE | 2017-12-29 13:21 | FAST ---
SHIFT START DATE/TIME: 12/29/2017 07:00 (CDT) SHIFT END DATE/TIME: 12/29/2017 19:00 (CDT) NAME JUANA MARQUEZ DATE OF : 1935 DATE OF ADMISSION: 12/27/2017 15:41 (CDT) PHONE: AGE: 82 N# [id number] GENDER: Female ENCOUNTER PHYSICIAN: Dr. Arun Joshua M.D. ADMISSION DIAGNOSIS: - Debility 16 - Debility (16) Multiple Falls. EATING: EATING - STEP 1: Does the patient require assistance when eating? Yes. EATING - STEP 2: Does the patient require the assistance of a helper? No, patient only requires an assistive device, O R s/he takes more than reasonable time to eat, OR there is a safety concern, OR s/he requires modifie d food consistency EATING - SCORE: 6-HIPOLITO GROOMING: Comb/brush hair Wash, rinse, and dry face Wash, rinse, and dry hands GROOMING - STEP 1: Does the patient require assistance when grooming? Yes. GROOMING - STEP 2: Does the patient require the assistance of a helper? Yes. GROOMING - STEP 3: How much assistance does the patient require from the helper? Only prior equipment preparation/set up from the helper GROOMING - SCORE: 5-SUP BATHING: Activity did not occur on this shift BATHING - SCORE: 0-UNK DRESSING - UPPER BODY: T-shirt/pullover shirt (four steps) ARTICLES SCORE Total number of steps: 4 DRESSING - UPPER BODY - STEP 1: Does the patient require help when dressing above the waist? Yes. DRESSING - UPPER BODY - STEP 2: Does the patient require the assistance of a helper? Yes. DRESSING - UPPER BODY - STEP 3: Does the helper touch the patient while dressing? Yes. DRESSING - UPPER BODY - STEP 4: How many of the total steps does the patient complete on his/her own? 4 DRESSING - UPPER BODY - SCORE: 4-MIN DRESSING - LOWER BODY: ARTICLES SCORE Total number of steps: 6 DRESSING - LOWER BODY - STEP 1: Does the patient require help when dressing below the waist? Yes. DRESSING - LOWER BODY - STEP 2: Does the patient require the assistance of a helper? Yes. DRESSING - LOWER BODY - STEP 3: Does the helper touch the patient while dressing? Yes. DRESSING - LOWER BODY - STEP 4: How many of the total steps does the patient complete on his/her own? 2 DRESSING - LOWER BODY - STEP 5: Does patient require total assistance for dressing below the waist such as the helper holding clothin g and performing basically all the activities? No. DRESSING - LOWER BODY - SCORE: 2-MAX TOILETING: TOILETING - STEP 1: Does the patient require assistance with toileting? Yes. TOILETING - STEP 2: Does the patient require the assistance of a helper? Yes. TOILETING - STEP 3: How much assistance does the patient require from the helper? Hands-on assistance from the helper TOILETING - STEP 4: Of the 3 tasks: 1) Adjusting clothing prior to use, 2) Cleansing of perineal area, 3) Adjusting clot khalida after use; How many tasks does the patient perform WITHOUT assistance of the helper? Two tasks TOILETING - SCORE: 3-MOD BLADDER MANAGEMENT: BLADDER MANAGEMENT - STEP 1: Does the patient control the bladder completely and intentionally without equipment or devices or med ications, and is always continent? No. BLADDER MANAGEMENT - STEP 2: Does the patient require the assistance of a helper? No, patient requires and independently uses an a ssistive device, such as a urinal, bedpan, bedside commode, catheter, absorbent pad, or collecting de vice BLADDER MANAGEMENT - SCORE: 6-HIPOLITO BOWEL MANAGEMENT: Activity did not occur on this shift BOWEL MANAGEMENT - SCORE: 7-IND TRANSFERS: BED, CHAIR, WHEELCHAIR: TRANSFERS: BED, CHAIR, WHEELCHAIR - STEP 1: Does the patient require assistance with bed, chair, or wheelchair transfers? Yes. TRANSFERS: BED, CHAIR, WHEELCHAIR - STEP 2: Does the patient require the assistance of a helper? Yes. TRANSFERS: BED, CHAIR, WHEELCHAIR - STEP 3: How much assistance does the patient require from the helper? Lifting of the patient TRANSFERS: BED, CHAIR, WHEELCHAIR - STEP 4: Does the helper lift the patient ONLY up? ONLY down? Up AND Down? ONLY up. TRANSFERS: BED, CHAIR, WHEELCHAIR - SCORE: 3-MOD TRANSFERS: TOILET: TRANSFERS: TOILET - STEP 1: Does the patient require assistance with toilet transfers? Yes. TRANSFERS: TOILET - STEP 2: Does the patient require the assistance of a helper? Yes. TRANSFERS: TOILET - STEP 3: How much assistance does the patient require from the helper? Patient performs half or more of the tr ansferring tasks TRANSFERS: TOILET - STEP 4: Does the patient need only incidental help such as contact guard or steadying during toilet transfer? No. Patient needs more than incidental help TRANSFERS: TOILET - SCORE: 3-MOD TRANSFERS: SHOWER: Activity did not occur on this shift TRANSFERS: SHOWER - SCORE: 0-UNK TRANSFERS: TUB: Activity did not occur on this shift TRANSFERS: TUB - SCORE: 0-UNK LOCOMOTION: WALK: Activity did not occur on this shift LOCOMOTION: WALK - SCORE: 0-UNK LOCOMOTION: WHEELCHAIR: Activity did not occur on this shift LOCOMOTION: WHEELCHAIR - SCORE: 0-UNK COMPREHENSION: COMPREHENSION: TYPE: Both COMPREHENSION - STEP 1: Does the patient require help to understand complex and abstract ideas (such as current events, finan mitra, discharge planning, medical issues, relationships, etc)? Yes. COMPREHENSION - STEP 2: Does the patient require help to understand questions or statements about basic needs or ideas (such as hunger, thirst, sleep, safety, daily schedule, room location, or discomfort) half or more of the t janiya? No. COMPREHENSION - STEP 3: How often does the patient need help to understand directions and conversation about basic needs? 25% - 49% of the time COMPREHENSION - SCORE: 3-MOD EXPRESSION EXPRESSION: TYPE: Both EXPRESSION - STEP 1: Does the patient require help expressing complex and abstract ideas (such as current events, finances , discharge planning, medical issues, relationships, etc)? Yes. EXPRESSION - STEP 2: Does the patient require help to express basic necessities or ideas (such as hunger, thirst, sleep, s afety, daily schedule, room location, or discomfort) half or more of the time? No. EXPRESSION - STEP 3: How often does the patient need help to express directions and conversation about basic needs? Less t boothe 10% of the time EXPRESSION - SCORE: 5-SUP SOCIAL INTERACTION: SOCIAL INTERACTION - STEP 1: Does the patient require a helper to interact with others in social and therapeutic situations? Yes. SOCIAL INTERACTION - STEP 2: Does the patient interact appropriately half or more of the time? Yes. SOCIAL INTERACTION - STEP 3: How often does the patient need help to interact appropriately? Less than 10% of the time SOCIAL INTERACTION - SCORE: 5-SUP PROBLEM SOLVING: PROBLEM SOLVING - STEP 1: Does the patient need help to solve complex problems such as managing a checking account or confronti ng interpersonal problems? Yes. PROBLEM SOLVING - STEP 2: Does the patient solve basic routine problems half or more of the time? Yes. PROBLEM SOLVING - STEP 3: How often does the patient need help to solve basic routine problems? 25%-49% of the time PROBLEM SOLVING - SCORE: 3-MOD MEMORY: MEMORY - STEP 1: Does the patient need help to remember frequently encountered people, daily routines, and executing r equests? Yes. MEMORY - STEP 2: How often does the patient need help to remember frequently encountered people, daily routines, and e xecuting requests? 25% - 49% of the time MEMORY - SCORE: 3-MOD SIGNATURE PANEL: The following modified sections: Eating - Score, Grooming - Score, Bathing - Score, Dressing - Upper Body - Score, Dressing - Lower Body - Score, Toileting - Score, Bladder Management - Score, Bowel Man agement - Score, Transfers: Bed, Chair, Wheelchair - Score, Transfers: Toilet - Score, Transfers: Laila wer - Score, Transfers: Tub - Score, Locomotion: Walk - Score, Locomotion: Wheelchair - Score, Compre hension - Score, Expression - Score, Social Interaction - Score, Problem Solving - Score, Memory - Sc ore were [electronically] signed by Justin Hough on WedDec 29 2017 13:20:41 GMT-0500 (Central Daylight Time)
[2017-12-29] MEDS: LIDOCAINE 5% PATCH TOP SCH (14:34)
--- NOTE | 2017-12-29 15:21 | FAST ---
ENCOUNTER DATE AND TIME: 12/28/2017 08:00 (CDT) NAME JUANA MARQUEZ DATE OF : 1935 DATE OF ADMISSION: 12/27/2017 15:41 (CDT) PHONE: AGE: 82 N# [id number] GENDER: Female ENCOUNTER PHYSICIAN: Dr. Arun Joshua M.D. ADMISSION DIAGNOSIS: - Debility 16 - Debility (16) Multiple Falls. EATING: Activity did not occur on this shift EATING - SCORE: 0-UNK GROOMING: Comb/brush hair Oral care Wash, rinse, and dry face Wash, rinse, and dry hands GROOMING - STEP 1: Does the patient require assistance when grooming? Yes. GROOMING - STEP 2: Does the patient require the assistance of a helper? No. The patient only requires an assistive devic e, OR takes more than reasonable time to groom, OR there is a concern for safety as the patient groom s GROOMING - SCORE: 6-HIPOLITO BATHING: Abdomen Buttocks Chest Left arm Left lower leg and foot Left upper leg Perineal area Right arm Right lower leg and foot Right upper leg BATHING - STEP 1: Does the patient require assistance when bathing? Yes. BATHING - STEP 2: Does the patient require the assistance of a helper? Yes. BATHING - STEP 3: How much assistance does the patient require from the helper? More than just incidental help BATHING - STEP 4: What percent of the body parts did the patient bathe WITHOUT the helper? Half or more of the body par ts BATHING - SCORE: 3-MOD DRESSING - UPPER BODY: T-shirt/pullover shirt (four steps) ARTICLES SCORE Total number of steps: 4 DRESSING - UPPER BODY - STEP 1: Does the patient require help when dressing above the waist? Yes. DRESSING - UPPER BODY - STEP 2: Does the patient require the assistance of a helper? Yes. DRESSING - UPPER BODY - STEP 3: Does the helper touch the patient while dressing? No. DRESSING - UPPER BODY - SCORE: 5-SUP DRESSING - LOWER BODY: Elastic waist pants (three steps) Slip-on shoe - Left foot (one step) Tied or buckled shoe - Left foot (two steps) Tied or buckled shoe - Right foot (two steps) Underwear (three steps) ARTICLES SCORE Total number of steps: 11 DRESSING - LOWER BODY - STEP 1: Does the patient require help when dressing below the waist? Yes. DRESSING - LOWER BODY - STEP 2: Does the patient require the assistance of a helper? Yes. DRESSING - LOWER BODY - STEP 3: Does the helper touch the patient while dressing? Yes. DRESSING - LOWER BODY - STEP 4: How many of the total steps does the patient complete on his/her own? 2 DRESSING - LOWER BODY - STEP 5: Does patient require total assistance for dressing below the waist such as the helper holding clothin g and performing basically all the activities? No. DRESSING - LOWER BODY - SCORE: 2-MAX TOILETING: Activity did not occur on this shift TOILETING - SCORE: 0-UNK BLADDER MANAGEMENT: Activity did not occur on this shift BLADDER MANAGEMENT - SCORE: 7-IND BOWEL MANAGEMENT: Activity did not occur on this shift BOWEL MANAGEMENT - SCORE: 7-IND TRANSFERS: BED, CHAIR, WHEELCHAIR: Activity did not occur on this shift TRANSFERS: BED, CHAIR, WHEELCHAIR - SCORE: 0-UNK TRANSFERS: TOILET: Activity did not occur on this shift TRANSFERS: TOILET - SCORE: 0-UNK TRANSFERS: SHOWER: TRANSFERS: SHOWER - STEP 1: Does the patient require assistance with shower transfers? Yes. TRANSFERS: SHOWER - STEP 2: Does the patient require the assistance of a helper? Yes. TRANSFERS: SHOWER - STEP 3: How much assistance does the patient require from the helper? More than incidental help TRANSFERS: SHOWER - STEP 4: How much more help does the patient require from the helper? Lifting the patient up AND down from the wheelchair onto the shower chair TRANSFERS: SHOWER - SCORE: 2-MAX TRANSFERS: TUB: Activity did not occur on this shift TRANSFERS: TUB - SCORE: 0-UNK LOCOMOTION: WALK: Activity did not occur on this shift LOCOMOTION: WALK - SCORE: 0-UNK LOCOMOTION: WHEELCHAIR: Activity did not occur on this shift LOCOMOTION: WHEELCHAIR - SCORE: 0-UNK LOCOMOTION: STAIRS: Activity did not occur on this shift LOCOMOTION: STAIRS - SCORE: 0-UNK COMPREHENSION: COMPREHENSION: TYPE: Both COMPREHENSION - STEP 1: Does the patient require help to understand complex and abstract ideas (such as current events, finan mitra, discharge planning, medical issues, relationships, etc)? Yes. COMPREHENSION - STEP 2: Does the patient require help to understand questions or statements about basic needs or ideas (such as hunger, thirst, sleep, safety, daily schedule, room location, or discomfort) half or more of the t janiya? No. COMPREHENSION - STEP 3: How often does the patient need help to understand directions and conversation about basic needs? Les s than 10% of the time COMPREHENSION - SCORE: 5-SUP EXPRESSION EXPRESSION: TYPE: Both EXPRESSION - STEP 1: Does the patient require help expressing complex and abstract ideas (such as current events, finances , discharge planning, medical issues, relationships, etc)? Yes. EXPRESSION - STEP 2: Does the patient require help to express basic necessities or ideas (such as hunger, thirst, sleep, s afety, daily schedule, room location, or discomfort) half or more of the time? No. EXPRESSION - STEP 3: How often does the patient need help to express directions and conversation about basic needs? Less t boothe 10% of the time EXPRESSION - SCORE: 5-SUP SOCIAL INTERACTION: SOCIAL INTERACTION - STEP 1: Does the patient require a helper to interact with others in social and therapeutic situations? No. SOCIAL INTERACTION - STEP 2: Does the patient need extra time in social situations, OR does s/he interact with staff, other patien ts, and family members ONLY in structured environments, OR does s/he require medication for social in teraction? No. SOCIAL INTERACTION - SCORE: 7-IND PROBLEM SOLVING: PROBLEM SOLVING - STEP 1: Does the patient need help to solve complex problems such as managing a checking account or confronti ng interpersonal problems? Yes. PROBLEM SOLVING - STEP 2: Does the patient solve basic routine problems half or more of the time? Yes. PROBLEM SOLVING - STEP 3: How often does the patient need help to solve basic routine problems? 25%-49% of the time PROBLEM SOLVING - SCORE: 3-MOD MEMORY: MEMORY - STEP 1: Does the patient need help to remember frequently encountered people, daily routines, and executing r equests? Yes. MEMORY - STEP 2: How often does the patient need help to remember frequently encountered people, daily routines, and e xecuting requests? 25% - 49% of the time MEMORY - SCORE: 3-MOD SIGNATURE PANEL: The following modified sections: Eating - Score, Grooming - Score, Bathing - Score, Dressing - Upper Body - Score, Dressing - Lower Body - Score, Toileting - Score, Transfers: Bed, Chair, Wheelchair - S core, Transfers: Toilet - Score, Transfers: Tub - Score, Transfers: Shower - Score, Comprehension - S core, Expression - Score, Social Interaction - Score, Problem Solving - Score, Memory - Score were [e lectronically] signed by Karen Boyer OT on WedDec 29 2017 15:20:18 GMT-0500 (Central Daylight T janiya)
--- NOTE | 2017-12-29 16:02 | FAST ---
ENCOUNTER DATE AND TIME: 12/29/2017 08:00 (CDT) NAME JUANA MARQUEZ DATE OF : 1935 DATE OF ADMISSION: 12/27/2017 15:41 (CDT) PHONE: AGE: 82 N# [id number] GENDER: Female ENCOUNTER PHYSICIAN: Dr. Arun Joshua M.D. ADMISSION DIAGNOSIS: - Debility 16 - Debility (16) Multiple Falls. EATING: Activity did not occur on this shift EATING - SCORE: 0-UNK GROOMING: Activity did not occur on this shift GROOMING - SCORE: 0-UNK BATHING: Activity did not occur on this shift BATHING - SCORE: 0-UNK DRESSING - UPPER BODY: Activity did not occur on this shift Patient is not dressing in public clothing ARTICLES SCORE Total number of steps: 0 DRESSING - UPPER BODY - SCORE: 0-UNK DRESSING - LOWER BODY: Activity did not occur on this shift Patient is not dressing in public clothing ARTICLES SCORE Total number of steps: 0 DRESSING - LOWER BODY - SCORE: 0-UNK TOILETING: Activity did not occur on this shift TOILETING - SCORE: 0-UNK BLADDER MANAGEMENT: Activity did not occur on this shift BLADDER MANAGEMENT - SCORE: 7-IND BOWEL MANAGEMENT: Activity did not occur on this shift BOWEL MANAGEMENT - SCORE: 7-IND TRANSFERS: BED, CHAIR, WHEELCHAIR: TRANSFERS: BED, CHAIR, WHEELCHAIR - STEP 1: Does the patient require assistance with bed, chair, or wheelchair transfers? Yes. TRANSFERS: BED, CHAIR, WHEELCHAIR - STEP 2: Does the patient require the assistance of a helper? Yes. TRANSFERS: BED, CHAIR, WHEELCHAIR - STEP 3: How much assistance does the patient require from the helper? Steadying/guiding assistance TRANSFERS: BED, CHAIR, WHEELCHAIR - SCORE: 4-MIN TRANSFERS: TOILET: Activity did not occur on this shift TRANSFERS: TOILET - SCORE: 0-UNK TRANSFERS: SHOWER: Activity did not occur on this shift TRANSFERS: SHOWER - SCORE: 0-UNK TRANSFERS: TUB: Activity did not occur on this shift TRANSFERS: TUB - SCORE: 0-UNK LOCOMOTION: WALK: LOCOMOTION: WALK - STEP 1: Does the patient need help to walk 150 feet? Yes. LOCOMOTION: WALK - STEP 2: How much assistance does the patient require to walk a minimum of 150 feet? Only incidental help such as contact guarding or steadying LOCOMOTION: WALK - SCORE: 4-MIN LOCOMOTION: WHEELCHAIR: Activity did not occur on this shift LOCOMOTION: WHEELCHAIR - SCORE: 0-UNK LOCOMOTION: STAIRS: Activity did not occur on this shift LOCOMOTION: STAIRS - SCORE: 0-UNK COMPREHENSION: COMPREHENSION - SCORE: 0-UNK EXPRESSION EXPRESSION - SCORE: 0-UNK SOCIAL INTERACTION: SOCIAL INTERACTION - SCORE: 0-UNK PROBLEM SOLVING: PROBLEM SOLVING - SCORE: 0-UNK MEMORY: MEMORY - SCORE: 0-UNK SIGNATURE PANEL: The following modified sections: Transfers: Bed, Chair, Wheelchair - Score, Transfers: Toilet - Score , Locomotion: Walk - Score, Locomotion: Wheelchair - Score, Locomotion: Stairs - Score were [electron ically] signed by Alistair Pedraza PT on WedDec 29 2017 16:02:10 GMT-0500 (Central Daylight Time)
--- NOTE | 2017-12-29 16:36 | R.PN ---
ENCOUNTER DATE AND TIME: 12/29/2017 16:30 (CDT) NAME JUANA MARUQEZ DATE OF : 1935 DATE OF ADMISSION: 12/27/2017 15:41 (CDT) Multiple FallsSUBJECTIVE: Pt denied any Shortness of Breath. Pt denied any depression. VITAL SIGNS Temperature: 98.4 F SBP/DBP: 113/55 Pulse: 54 Resp: 14 Therapeutic exercises done with minimum assistance. MEDICATION ALLERGIES: Meperidine HCl Nitrofurantoin Macrocrystal ENVIRONMENTAL ALLERGIES: None Known - Substance Allergies None Known - Other Allergies None Known NURSING: - Shower allowing shower ACTIVITIES OOB only with supervision THERAPIES: - Occupational Therapy Evaluate and Treat. - Physical Therapy Evaluate and Treat. PHYSICAL EXAM - Gen Alert and awake Lying in bed No apparent distress Oriented to: person, time, and place - Skin No skin breakdown. Normacephalic - Eyes No abnormalities - ENMT No abnormalities - Neck No abnormalities - CVS RRR - Chest No abnormalities - Resp Clear to auscultation - Abd Soft - GI Non distended Deferred - No abnormalities - Ext Mild bilateral lower extremity weakness. - MSK 4+/5 weakness in both lower extremities. - Neuro 4/5 strength bilaterally lower extremities. - Psych No abnormalities ASSESSMENT: Pt. is a 82 yo Right-handed white female.On 12/20/2017 she was admitted to [facility] with diagnosis Multiple Falls.Her impairment category is Debility 16 - Debility (16).Pre-morb idly, Pt. was independent/mod-I in Communication, Social Cognition, Self-Care, Locomotion, Sphincter Control, and Transfers Control; and she had good Sphincter Control.Currently, she has deficits of Bal ance, Locomotion, Endurance, Safety Awareness, Transfers Control, and Self-Care.Pt. is now referred t [facility] for acute in-patient rehabilitation in order to maximize patient' s functional independence in activities of daily living, strength, ROM, and mobility.- Rehab Goal Patient has realistic goal of being discharged at assistance level 5-sup to reside at Home with Fami ly/Relatives. MDM/PLAN: - Physical Therapy Gait dysfunction - to improve, our physical therapists will perform initial evaluation of pt's statu s upon admission and devise an individualized program for Gait Training, and Wheel Chair mobility Inability to transfer - to improve, our physical therapists will perform initial evaluation of pt's status upon admission and devise an individualized program for Bed mobility Need for home safety evaluation - to improve, our physical therapists will perform initial evaluatio n of pt's status upon admission and devise an individualized program for Home Evaluation Need in caregiver upon discharge - to improve, our physical therapists will perform initial evaluati on of pt's status upon admission and devise an individualized program for Caregiver Training New precaution - to improve, our physical therapists will perform initial evaluation of pt's status upon admission and devise an individualized program for Patient precaution education Poor balance - to improve, our physical therapists will perform initial evaluation of pt's status up on admission and devise an individualized program for Balance Training Poor endurance - to improve, our physical therapists will perform initial evaluation of pt's status upon admission and devise an individualized program for Endurance Training Weakness - to improve, our physical therapists will perform initial evaluation of pt's status upon a dmission and devise an individualized program for Aquatic Therapy, Neuromuscular Reeducation, and Str engthening Achieving independence - to improve, our physical therapists will perform initial evaluation of pt's status upon admission and devise an individualized program for Community Reintegration Activities - Occupational Therapy ADL deficits - to improve, our occupation therapists will perform initial evaluation of pt's status upon admission and devise an individualized program for Bathing, Bed mobility, Community Reintegratio n, Cooking, Dressing, Eating, Fine Motor Skills, Grooming, Homemaking, Kitchen Mobility, Laundry, Pat ient Education, Safety Awareness, Splinting - Positioning, Transfers(Toilet, Tub, Shower), and Wheel Chair Management Need for group care worker - to improve, our occupation therapists will perform initial evaluation of pt's status upon admission and devise an individualized program for Caregiver Training Weakness - to improve, our occupation therapists will perform initial evaluation of pt's status upon admission and devise an individualized program for Aquatic Therapy, Balance, Endurance, UE ROM, and UE strengthening - Diet Type Continue Regular - Diet - Liquid Texture Continue Regular - Tube Feed Continue N/A - Diet - Solid Texture Continue Regular - Shower allowing shower FUNCTIONAL STATUS: UPDATED AT WEEKLY TEAM CONFERENCE - Bladder Same accident frequency: 7-Ind - No accidents in the past 7 days - Bowel Same accident frequency: 7-Ind - No accidents in the past 7 days - Walking Same score based on distance walked: 3(>=150ft) - Wheelchair Same score based on distance traveled: 0(N/A) FUNCTIONAL STATUS: - Self-Care A. Eating Ind B. Grooming Ind C. Bathing sup D. Dressing - Upper sup E. Dressing - Lower sup F. Toileting sup - Sphincter Control G: Bladder control Ind H: Bowel control Ind - Transfers Control I. Bed/Chair/Wheelchair sup J. Toilet sup K. Tub/Shower ADNO - Locomotion L. Walk/Wheelchair (B) sup M. Stairs ADNO - Communication N. Comprehension (B) Varghese O. Expression (B) Varghese - Social Cognition P. Social Interaction Varghese Q. Problem Solving [place]arghese R. Memory Varghese - Endurance Fair - Balance Fair - Safety Awareness Fair CURRENT FUNC. DEFICITS: Balance, Locomotion, Endurance, Safety Awareness, Transfers Control, and Self-Care SIGNATURE PANEL: (CDT)
[2017-12-29] MEDS: ENOXAPARIN 40 MG/0.4 ML SQ SCH (16:41)
[2017-12-29] MEDS: ATORVASTATIN 40 MG TAB PO SCH (20:04)
[2017-12-29] MEDS: MELATONIN 3 MG TABLET PO PRN (20:05)
[2017-12-30] MEDS: AMOXICILLIN TRIHYDR 250 MG CAP PO SCH ×3 (00:26→16:13)
[2017-12-30] MEDS: LEVOTHYROXINE SOD 0.1 MG TAB PO SCH (05:10)
[2017-12-30] MEDS: METOPROLOL XL 50 MG TAB PO SCH ×2 (05:11→17:13)
[2017-12-30 06:37] LABS: Absolute Monocytes 0.6 K/uL (0.1-1.3); Absolute Neutrophil 4.3 K/uL (1.8-8.0); Basophils % 0.5 % (0-1.3); Hematocrit 29.3 % (36.0-45.0); Lymphocytes % 17.2 % (15.3-44.8); MCH 26.6 pg (27.0-35.0); MCV 78.3 fL (80-100); MPV 9.3 fL (7.6-11.3); Monocytes % 9.3 % (3.3-12.3); RBC Red Blood Cell Count 3.74 M/uL (3.86-4.86)
[2017-12-30 06:54] LABS: Albumin 2.9 g/dL (3.4-5.0); Magnesium 1.8 mg/dL (1.8-2.4); Potassium 4.4 mmol/L (3.5-5.1); Prealbumin 15.2 mg/dL (20-40)
[2017-12-30] MEDS: LIDOCAINE 5% PATCH TOP SCH (07:36)
[2017-12-30] MEDS: CLOPIDOGREL 75 MG TABLET PO SCH (08:57)
[2017-12-30] MEDS: SOLIFENACIN SUCCINATE 10 MG PO SCH (08:57)
[2017-12-30] MEDS: LORATADINE 10 MG TAB PO SCH (08:57)
[2017-12-30] MEDS: FE SULF/FA/VIT B COMP & C TAB PO SCH (08:57)
[2017-12-30] MEDS: GABAPENTIN 100 MG CAP PO SCH ×3 (08:57→20:12)
[2017-12-30] MEDS: VALSARTAN 80 MG TAB PO SCH (08:58)
[2017-12-30] MEDS: ACETAMINOPHEN 500 MG TAB PO PRN (08:58)
[2017-12-30] MEDS: SERTRALINE HCL 100 MG TAB PO SCH (08:58)
[2017-12-30] MEDS: PROMOD 30 ML DOSE PO SCH ×2 (08:59→20:12)
[2017-12-30] MEDS: MINOXIDIL 2.5 MG TAB PO SCH ×2 (08:59→20:12)
--- NOTE | 2017-12-30 10:14 | RAD REPORT ---
EXAM DESCRIPTION: MRI - Elbow Right Wo Cont - 12/29/2017 11:11 pm CLINICAL HISTORY: Right arm pain COMPARISON: No comparisons FINDINGS: The biceps tendon insertion is thickened compatible with tendinopathy. There is no full-th ickness tear of the biceps tendon seen. Triceps tendon is normal in thickness. Mild elbow joint effusion. The collateral ligaments appear mildly thickened without a tear. No soft t issue mass or hematoma. No fracture or subluxation. IMPRESSION: No evident biceps tendon tear. The distal biceps tendon insertion appears thickened sugg esting chronic tendinopathy.
--- NOTE | 2017-12-30 10:19 | RAD REPORT ---
EXAM DESCRIPTION: MRI - Shoulder Rt Wo Cont - 12/29/2017 11:10 pm CLINICAL HISTORY: Right shoulder pain COMPARISON: No comparisons FINDINGS: There is a large amount of motion artifact present which significantly degrades the qualit y of the study. The AC joint demonstrates moderate osseous and capsular hypertrophy. The acromion process is mildly c oncave. The rotator cuff demonstrates large full-thickness tear of supraspinatus and infraspinatus tendons wi th high-riding humeral head. Tendon retraction is likely present to the level of the AC joint. Partial-thickness tear of the subscapularis is likely also present. The biceps tendon may be medially subluxed although full assessment is difficult due to motion. Degenerative changes of affects the glenohumeral joint and glenoid labrum. Small joint effusion. IMPRESSION: Extensive rotator cuff tear. Examination is limited by significant patient motion artifa ct.
--- NOTE | 2017-12-30 12:58 | FAST ---
SHIFT START DATE/TIME: 12/30/2017 07:00 (CDT) SHIFT END DATE/TIME: 12/30/2017 19:00 (CDT) NAME JUANA MARQUEZ DATE OF : 1935 DATE OF ADMISSION: 12/27/2017 15:41 (CDT) PHONE: AGE: 82 N# [id number] GENDER: Female ENCOUNTER PHYSICIAN: Dr. Arun Joshua M.D. ADMISSION DIAGNOSIS: - Debility 16 - Debility (16) Multiple Falls. EATING: EATING - STEP 1: Does the patient require assistance when eating? Yes. EATING - STEP 2: Does the patient require the assistance of a helper? No, patient only requires an assistive device, O R s/he takes more than reasonable time to eat, OR there is a safety concern, OR s/he requires modifie d food consistency EATING - SCORE: 6-HIPOLITO GROOMING: Comb/brush hair Oral care Wash, rinse, and dry face Wash, rinse, and dry hands GROOMING - STEP 1: Does the patient require assistance when grooming? Yes. GROOMING - STEP 2: Does the patient require the assistance of a helper? No. The patient only requires an assistive devic e, OR takes more than reasonable time to groom, OR there is a concern for safety as the patient groom s GROOMING - SCORE: 6-HIPOLITO BATHING: Activity did not occur on this shift BATHING - SCORE: 0-UNK DRESSING - UPPER BODY: T-shirt/pullover shirt (four steps) ARTICLES SCORE Total number of steps: 4 DRESSING - UPPER BODY - STEP 1: Does the patient require help when dressing above the waist? Yes. DRESSING - UPPER BODY - STEP 2: Does the patient require the assistance of a helper? Yes. DRESSING - UPPER BODY - STEP 3: Does the helper touch the patient while dressing? No. DRESSING - UPPER BODY - SCORE: 5-SUP DRESSING - LOWER BODY: ARTICLES SCORE Total number of steps: 3 DRESSING - LOWER BODY - STEP 1: Does the patient require help when dressing below the waist? Yes. DRESSING - LOWER BODY - STEP 2: Does the patient require the assistance of a helper? Yes. DRESSING - LOWER BODY - STEP 3: Does the helper touch the patient while dressing? Yes. DRESSING - LOWER BODY - STEP 4: How many of the total steps does the patient complete on his/her own? 3 DRESSING - LOWER BODY - SCORE: 4-MIN TOILETING: TOILETING - STEP 1: Does the patient require assistance with toileting? Yes. TOILETING - STEP 2: Does the patient require the assistance of a helper? Yes. TOILETING - STEP 3: How much assistance does the patient require from the helper? Hands-on assistance from the helper TOILETING - STEP 4: Of the 3 tasks: 1) Adjusting clothing prior to use, 2) Cleansing of perineal area, 3) Adjusting clot khalida after use; How many tasks does the patient perform WITHOUT assistance of the helper? Two tasks TOILETING - SCORE: 3-MOD BLADDER MANAGEMENT: BLADDER MANAGEMENT - STEP 1: Does the patient control the bladder completely and intentionally without equipment or devices or med ications, and is always continent? No. BLADDER MANAGEMENT - STEP 2: Does the patient require the assistance of a helper? No, patient requires and independently uses an a ssistive device, such as a urinal, bedpan, bedside commode, catheter, absorbent pad, or collecting de vice BLADDER MANAGEMENT - SCORE: 6-HIPOLITO BOWEL MANAGEMENT: Activity did not occur on this shift BOWEL MANAGEMENT - SCORE: 7-IND TRANSFERS: BED, CHAIR, WHEELCHAIR: TRANSFERS: BED, CHAIR, WHEELCHAIR - STEP 1: Does the patient require assistance with bed, chair, or wheelchair transfers? Yes. TRANSFERS: BED, CHAIR, WHEELCHAIR - STEP 2: Does the patient require the assistance of a helper? Yes. TRANSFERS: BED, CHAIR, WHEELCHAIR - STEP 3: How much assistance does the patient require from the helper? Steadying/guiding assistance TRANSFERS: BED, CHAIR, WHEELCHAIR - SCORE: 4-MIN TRANSFERS: TOILET: TRANSFERS: TOILET - STEP 1: Does the patient require assistance with toilet transfers? Yes. TRANSFERS: TOILET - STEP 2: Does the patient require the assistance of a helper? Yes. TRANSFERS: TOILET - STEP 3: How much assistance does the patient require from the helper? Patient performs half or more of the tr ansferring tasks TRANSFERS: TOILET - STEP 4: Does the patient need only incidental help such as contact guard or steadying during toilet transfer? No. Patient needs more than incidental help TRANSFERS: TOILET - SCORE: 3-MOD TRANSFERS: SHOWER: Activity did not occur on this shift TRANSFERS: SHOWER - SCORE: 0-UNK TRANSFERS: TUB: Activity did not occur on this shift TRANSFERS: TUB - SCORE: 0-UNK LOCOMOTION: WALK: Activity did not occur on this shift LOCOMOTION: WALK - SCORE: 0-UNK LOCOMOTION: WHEELCHAIR: Activity did not occur on this shift LOCOMOTION: WHEELCHAIR - SCORE: 0-UNK COMPREHENSION: COMPREHENSION: TYPE: Both COMPREHENSION - STEP 1: Does the patient require help to understand complex and abstract ideas (such as current events, finan mitra, discharge planning, medical issues, relationships, etc)? Yes. COMPREHENSION - STEP 2: Does the patient require help to understand questions or statements about basic needs or ideas (such as hunger, thirst, sleep, safety, daily schedule, room location, or discomfort) half or more of the t janiya? No. COMPREHENSION - STEP 3: How often does the patient need help to understand directions and conversation about basic needs? Les s than 10% of the time COMPREHENSION - SCORE: 5-SUP EXPRESSION EXPRESSION: TYPE: Both EXPRESSION - STEP 1: Does the patient require help expressing complex and abstract ideas (such as current events, finances , discharge planning, medical issues, relationships, etc)? Yes. EXPRESSION - STEP 2: Does the patient require help to express basic necessities or ideas (such as hunger, thirst, sleep, s afety, daily schedule, room location, or discomfort) half or more of the time? No. EXPRESSION - STEP 3: How often does the patient need help to express directions and conversation about basic needs? Less t boothe 10% of the time EXPRESSION - SCORE: 5-SUP SOCIAL INTERACTION: SOCIAL INTERACTION - STEP 1: Does the patient require a helper to interact with others in social and therapeutic situations? Yes. SOCIAL INTERACTION - STEP 2: Does the patient interact appropriately half or more of the time? Yes. SOCIAL INTERACTION - STEP 3: How often does the patient need help to interact appropriately? Less than 10% of the time SOCIAL INTERACTION - SCORE: 5-SUP PROBLEM SOLVING: PROBLEM SOLVING - STEP 1: Does the patient need help to solve complex problems such as managing a checking account or confronti ng interpersonal problems? Yes. PROBLEM SOLVING - STEP 2: Does the patient solve basic routine problems half or more of the time? Yes. PROBLEM SOLVING - STEP 3: How often does the patient need help to solve basic routine problems? Less than 10% of the time PROBLEM SOLVING - SCORE: 5-SUP MEMORY: MEMORY - STEP 1: Does the patient need help to remember frequently encountered people, daily routines, and executing r equests? Yes. MEMORY - STEP 2: How often does the patient need help to remember frequently encountered people, daily routines, and e xecuting requests? Less than 10% of the time MEMORY - SCORE: 5-SUP SIGNATURE PANEL: The following modified sections: Eating - Score, Grooming - Score, Bathing - Score, Dressing - Upper Body - Score, Dressing - Lower Body - Score, Toileting - Score, Bladder Management - Score, Bowel Man agement - Score, Transfers: Bed, Chair, Wheelchair - Score, Transfers: Toilet - Score, Transfers: Laila wer - Score, Transfers: Tub - Score, Locomotion: Walk - Score, Locomotion: Wheelchair - Score, Compre hension - Score, Expression - Score, Social Interaction - Score, Problem Solving - Score, Memory - Sc ore were [electronically] signed by Justin Hough on Trisha Dec 30 2017 12:57:04 GMT-0500 (Central Daylight Time)
[2017-12-30] MEDS: ENOXAPARIN 40 MG/0.4 ML SQ SCH (16:13)
--- NOTE | 2017-12-30 19:34 | R.PN ---
ENCOUNTER DATE AND TIME: 12/30/2017 19:32 (CDT) NAME JUANA MARQUEZ DATE OF : 1935 DATE OF ADMISSION: 12/27/2017 15:41 (CDT) Multiple FallsCHIEF COMPLAINT: Debility SUBJECTIVE: Pt denied any Shortness of Breath. Pt denied any depression. MRI of right shoulder shows full thickness tear of right rotator cuff. Doing well with physical and occupational therapy. VITAL SIGNS Temperature: 98.4 F SBP/DBP: 113/55 Pulse: 54 Resp: 14 Therapeutic exercises done with minimum assistance. MEDICATION ALLERGIES: Meperidine HCl Nitrofurantoin Macrocrystal ENVIRONMENTAL ALLERGIES: None Known - Substance Allergies None Known - Other Allergies None Known NURSING: - Shower allowing shower ACTIVITIES OOB only with supervision THERAPIES: - Occupational Therapy Evaluate and Treat. - Physical Therapy Evaluate and Treat. PHYSICAL EXAM - Gen Alert and awake Lying in bed No apparent distress Oriented to: person, time, and place - Skin No skin breakdown. Normacephalic - Eyes No abnormalities - ENMT No abnormalities - Neck No abnormalities - CVS RRR - Chest No abnormalities - Resp Clear to auscultation - Abd Soft - GI Non distended Deferred - No abnormalities - Ext Mild bilateral lower extremity weakness. - MSK 4+/5 weakness in both lower extremities. - Neuro 4/5 strength bilaterally lower extremities. - Psych No abnormalities ASSESSMENT: Pt. is a 82 yo Right-handed white female.On 12/20/2017 she was admitted to [facility] with diagnosis Multiple Falls.Her impairment category is Debility 16 - Debility (16).Pre-morb idly, Pt. was independent/mod-I in Communication, Social Cognition, Self-Care, Locomotion, Sphincter Control, and Transfers Control; and she had good Sphincter Control.Currently, she has deficits of Bal ance, Locomotion, Endurance, Safety Awareness, Transfers Control, and Self-Care.Pt. is now referred t [facility] for acute in-patient rehabilitation in order to maximize patient' s functional independence in activities of daily living, strength, ROM, and mobility.- Rehab Goal Patient has realistic goal of being discharged at assistance level 5-sup to reside at Home with Fami ly/Relatives. MDM/PLAN: - Physical Therapy Gait dysfunction - to improve, our physical therapists will perform initial evaluation of pt's statu s upon admission and devise an individualized program for Gait Training, and Wheel Chair mobility Inability to transfer - to improve, our physical therapists will perform initial evaluation of pt's status upon admission and devise an individualized program for Bed mobility Need for home safety evaluation - to improve, our physical therapists will perform initial evaluatio n of pt's status upon admission and devise an individualized program for Home Evaluation Need in caregiver upon discharge - to improve, our physical therapists will perform initial evaluati on of pt's status upon admission and devise an individualized program for Caregiver Training New precaution - to improve, our physical therapists will perform initial evaluation of pt's status upon admission and devise an individualized program for Patient precaution education Poor balance - to improve, our physical therapists will perform initial evaluation of pt's status up on admission and devise an individualized program for Balance Training Poor endurance - to improve, our physical therapists will perform initial evaluation of pt's status upon admission and devise an individualized program for Endurance Training Weakness - to improve, our physical therapists will perform initial evaluation of pt's status upon a dmission and devise an individualized program for Aquatic Therapy, Neuromuscular Reeducation, and Str engthening Achieving independence - to improve, our physical therapists will perform initial evaluation of pt's status upon admission and devise an individualized program for Community Reintegration Activities - Occupational Therapy ADL deficits - to improve, our occupation therapists will perform initial evaluation of pt's status upon admission and devise an individualized program for Bathing, Bed mobility, Community Reintegratio n, Cooking, Dressing, Eating, Fine Motor Skills, Grooming, Homemaking, Kitchen Mobility, Laundry, Pat ient Education, Safety Awareness, Splinting - Positioning, Transfers(Toilet, Tub, Shower), and Wheel Chair Management Need for auto care center manager - to improve, our occupation therapists will perform initial evaluation of pt's status upon admission and devise an individualized program for Caregiver Training Weakness - to improve, our occupation therapists will perform initial evaluation of pt's status upon admission and devise an individualized program for Aquatic Therapy, Balance, Endurance, UE ROM, and UE strengthening - Diet Type Continue Regular - Diet - Liquid Texture Continue Regular - Tube Feed Continue N/A - Diet - Solid Texture Continue Regular - Shower allowing shower FUNCTIONAL STATUS: UPDATED AT WEEKLY TEAM CONFERENCE - Bladder Same accident frequency: 7-Ind - No accidents in the past 7 days - Bowel Same accident frequency: 7-Ind - No accidents in the past 7 days - Walking Same score based on distance walked: 3(>=150ft) - Wheelchair Same score based on distance traveled: 0(N/A) FUNCTIONAL STATUS: - Self-Care A. Eating Ind B. Grooming Ind C. Bathing sup D. Dressing - Upper sup E. Dressing - Lower sup F. Toileting sup - Sphincter Control G: Bladder control Ind H: Bowel control Ind - Transfers Control I. Bed/Chair/Wheelchair sup J. Toilet sup K. Tub/Shower ADNO - Locomotion L. Walk/Wheelchair (B) sup M. Stairs ADNO - Communication N. Comprehension (B) [place]se O. Expression (B) [place]arghese - Social Cognition P. Social Interaction [place]se Q. Problem Solving Varghese R. Memory Varghese - Endurance Fair - Balance Fair - Safety Awareness Fair CURRENT FUNC. DEFICITS: Balance, Locomotion, Endurance, Safety Awareness, Transfers Control, and Self-Care SIGNATURE PANEL: (CDT)
[2017-12-30] MEDS: MELATONIN 3 MG TABLET PO PRN (20:12)
[2017-12-30] MEDS: ATORVASTATIN 40 MG TAB PO SCH (20:12)
[2017-12-31] MEDS: AMOXICILLIN TRIHYDR 250 MG CAP PO SCH ×3 (00:27→17:01)
--- NOTE | 2017-12-31 02:47 | FAST ---
SHIFT START DATE/TIME: 12/30/2017 19:00 (CDT) SHIFT END DATE/TIME: 12/31/2017 07:00 (CDT) NAME JUANA MARQUEZ DATE OF : 1935 DATE OF ADMISSION: 12/27/2017 15:41 (CDT) PHONE: AGE: 82 N# [id number] GENDER: Female ENCOUNTER PHYSICIAN: Dr. Arun Joshua M.D. ADMISSION DIAGNOSIS: - Debility 16 - Debility (16) Multiple Falls. EATING: EATING - STEP 1: Does the patient require assistance when eating? Yes. EATING - STEP 2: Does the patient require the assistance of a helper? Yes. EATING - STEP 3: Does the patient perform half or more of the eating tasks? Yes. EATING - STEP 4: Does the patient need only supervision, cuing, coaxing OR help to apply an orthosis OR help to cut fo od, open containers, pour liquids, or butter bread? Yes. EATING - SCORE: 5-SUP GROOMING: Activity did not occur on this shift GROOMING - SCORE: 0-UNK BATHING: Activity did not occur on this shift BATHING - SCORE: 0-UNK DRESSING - UPPER BODY: Patient is not dressing in public clothing ARTICLES SCORE Total number of steps: 0 DRESSING - UPPER BODY - SCORE: 0-UNK DRESSING - LOWER BODY: Patient is not dressing in public clothing ARTICLES SCORE Total number of steps: 0 DRESSING - LOWER BODY - SCORE: 0-UNK TOILETING: TOILETING - STEP 1: Does the patient require assistance with toileting? Yes. TOILETING - STEP 2: Does the patient require the assistance of a helper? Yes. TOILETING - STEP 3: How much assistance does the patient require from the helper? Hands-on assistance from the helper TOILETING - STEP 4: Of the 3 tasks: 1) Adjusting clothing prior to use, 2) Cleansing of perineal area, 3) Adjusting clot khalida after use; How many tasks does the patient perform WITHOUT assistance of the helper? No tasks; h elper performs all three tasks TOILETING - SCORE: 1-DEP BLADDER MANAGEMENT: [place] removes incontinent device (Depends, pull ups, etc.); cleans the patient after accident / inco ntinent episode; and, applies new incontinent device. BLADDER MANAGEMENT - SCORE: 1-DEP BLADDER MANAGEMENT - FREQUENCY OF ACCIDENTS: BLADDER MANAGEMENT(FA) - STEP 1: How many accidents has the patient had during the current shift? 4 BOWEL MANAGEMENT: [place] removes incontinent device (depends, pull ups, etc.); cleans the patient after accident / inco ntinent episode; and, applies new device (depends, pull-ups, padding, etc.). BOWEL MANAGEMENT - SCORE: 1-DEP BOWEL MANAGEMENT - FREQUENCY OF ACCIDENTS: BOWEL MANAGEMENT(FA) - STEP 1: How many accidents has the patient had during the current shift? 1 TRANSFERS: BED, CHAIR, WHEELCHAIR: TRANSFERS: BED, CHAIR, WHEELCHAIR - STEP 1: Does the patient require assistance with bed, chair, or wheelchair transfers? Yes. TRANSFERS: BED, CHAIR, WHEELCHAIR - STEP 2: Does the patient require the assistance of a helper? Yes. TRANSFERS: BED, CHAIR, WHEELCHAIR - STEP 3: How much assistance does the patient require from the helper? Steadying/guiding assistance TRANSFERS: BED, CHAIR, WHEELCHAIR - SCORE: 4-MIN TRANSFERS: TOILET: TRANSFERS: TOILET - STEP 1: Does the patient require assistance with toilet transfers? Yes. TRANSFERS: TOILET - STEP 2: Does the patient require the assistance of a helper? Yes. TRANSFERS: TOILET - STEP 3: How much assistance does the patient require from the helper? Patient performs half or more of the tr ansferring tasks TRANSFERS: TOILET - STEP 4: Does the patient need only incidental help such as contact guard or steadying during toilet transfer? Yes. TRANSFERS: TOILET - SCORE: 4-MIN TRANSFERS: SHOWER: Activity did not occur on this shift TRANSFERS: SHOWER - SCORE: 0-UNK TRANSFERS: TUB: Activity did not occur on this shift TRANSFERS: TUB - SCORE: 0-UNK LOCOMOTION: WALK: Activity did not occur on this shift LOCOMOTION: WALK - SCORE: 0-UNK LOCOMOTION: WHEELCHAIR: Activity did not occur on this shift LOCOMOTION: WHEELCHAIR - SCORE: 0-UNK COMPREHENSION: COMPREHENSION: TYPE: Both COMPREHENSION - STEP 1: Does the patient require help to understand complex and abstract ideas (such as current events, finan mitra, discharge planning, medical issues, relationships, etc)? Yes. COMPREHENSION - STEP 2: Does the patient require help to understand questions or statements about basic needs or ideas (such as hunger, thirst, sleep, safety, daily schedule, room location, or discomfort) half or more of the t janiya? No. COMPREHENSION - STEP 3: How often does the patient need help to understand directions and conversation about basic needs? 10% - 24% of the time COMPREHENSION - SCORE: 4-MIN EXPRESSION EXPRESSION: TYPE: Both EXPRESSION - STEP 1: Does the patient require help expressing complex and abstract ideas (such as current events, finances , discharge planning, medical issues, relationships, etc)? No. EXPRESSION - STEP 2: Does the patient need extra time, require an assistive device (such as augmentive communication syste m or a communication board), OR does s/he have mild difficulty expressing complex and abstract ideas (including mild dysarthria or mild word-find problems)? Yes. EXPRESSION - SCORE: 6-HIPOLITO SOCIAL INTERACTION: SOCIAL INTERACTION - STEP 1: Does the patient require a helper to interact with others in social and therapeutic situations? No. SOCIAL INTERACTION - STEP 2: Does the patient need extra time in social situations, OR does s/he interact with staff, other patien ts, and family members ONLY in structured environments, OR does s/he require medication for social in teraction? Yes, patient needs extra time SOCIAL INTERACTION - SCORE: 6-HIPOLITO PROBLEM SOLVING: PROBLEM SOLVING - STEP 1: Does the patient need help to solve complex problems such as managing a checking account or confronti ng interpersonal problems? Yes. PROBLEM SOLVING - STEP 2: Does the patient solve basic routine problems half or more of the time? Yes. PROBLEM SOLVING - STEP 3: How often does the patient need help to solve basic routine problems? 25%-49% of the time PROBLEM SOLVING - SCORE: 3-MOD MEMORY: MEMORY - STEP 1: Does the patient need help to remember frequently encountered people, daily routines, and executing r equests? Yes. MEMORY - STEP 2: How often does the patient need help to remember frequently encountered people, daily routines, and e xecuting requests? 25% - 49% of the time MEMORY - SCORE: 3-MOD SIGNATURE PANEL: The following modified sections: Eating - Score, Grooming - Score, Bathing - Score, Dressing - Upper Body - Score, Dressing - Lower Body - Score, Toileting - Score, Bladder Management - Score, Bowel Man agement - Score, Transfers: Bed, Chair, Wheelchair - Score, Transfers: Toilet - Score, Transfers: Laila wer - Score, Transfers: Tub - Score, Locomotion: Walk - Score, Locomotion: Wheelchair - Score, Compre hension - Score, Expression - Score, Social Interaction - Score, Problem Solving - Score, Memory - Sc ore were [electronically] signed by Liza Alvarez C.N.A. on WedDec 31 2017 02:32:10 T-0500 ( Central Daylight Time)
[2017-12-31] MEDS: METOPROLOL XL 50 MG TAB PO SCH ×2 (05:05→17:01)
[2017-12-31] MEDS: LEVOTHYROXINE SOD 0.1 MG TAB PO SCH (05:05)
[2017-12-31] MEDS: PROMOD 30 ML DOSE PO SCH ×2 (10:00→20:05)
[2017-12-31] MEDS: FE SULF/FA/VIT B COMP & C TAB PO SCH (10:00)
[2017-12-31] MEDS: VALSARTAN 80 MG TAB PO SCH (10:00)
[2017-12-31] MEDS: SERTRALINE HCL 100 MG TAB PO SCH (10:00)
[2017-12-31] MEDS: LORATADINE 10 MG TAB PO SCH (10:00)
[2017-12-31] MEDS: LIDOCAINE 5% PATCH TOP SCH (10:00)
[2017-12-31] MEDS: CLOPIDOGREL 75 MG TABLET PO SCH (10:00)
[2017-12-31] MEDS: GABAPENTIN 100 MG CAP PO SCH ×3 (10:00→20:06)
[2017-12-31] MEDS: SOLIFENACIN SUCCINATE 10 MG PO SCH (10:00)
[2017-12-31] MEDS: MINOXIDIL 2.5 MG TAB PO SCH ×2 (10:00→20:06)
--- NOTE | 2017-12-31 14:13 | FAST ---
ENCOUNTER DATE AND TIME: 12/31/2017 08:00 (CDT) NAME JUANA MARQUEZ DATE OF : 1935 DATE OF ADMISSION: 12/27/2017 15:41 (CDT) PHONE: AGE: 82 SSN# [id number] GENDER: Female ENCOUNTER PHYSICIAN: Dr. Arun Joshua M.D. ADMISSION DIAGNOSIS: - Debility 16 - Debility (16) Multiple Falls. EATING: Activity did not occur on this shift EATING - SCORE: 0-UNK GROOMING: Comb/brush hair Wash, rinse, and dry face Wash, rinse, and dry hands GROOMING - STEP 1: Does the patient require assistance when grooming? Yes. GROOMING - STEP 2: Does the patient require the assistance of a helper? No. The patient only requires an assistive devic e, OR takes more than reasonable time to groom, OR there is a concern for safety as the patient groom s GROOMING - SCORE: 6-HIPOLITO BATHING: Abdomen Buttocks Chest Left arm Left lower leg and foot Left upper leg Perineal area Right arm Right lower leg and foot Right upper leg BATHING - STEP 1: Does the patient require assistance when bathing? Yes. BATHING - STEP 2: Does the patient require the assistance of a helper? Yes. BATHING - STEP 3: How much assistance does the patient require from the helper? Only incidental help such as placement of a wash cloth in his/her hand a few times as s/he bathes OR help to bathe just one or two areas of the body BATHING - SCORE: 4-MIN DRESSING - UPPER BODY: T-shirt/pullover shirt (four steps) ARTICLES SCORE Total number of steps: 4 DRESSING - UPPER BODY - STEP 1: Does the patient require help when dressing above the waist? Yes. DRESSING - UPPER BODY - STEP 2: Does the patient require the assistance of a helper? Yes. DRESSING - UPPER BODY - STEP 3: Does the helper touch the patient while dressing? No. DRESSING - UPPER BODY - SCORE: 5-SUP DRESSING - LOWER BODY: Elastic waist pants (three steps) Slip-on shoe - Left foot (one step) Slip-on shoe - Right foot (one step) Sock - Left foot (one step) Sock - Right foot (one step) Underwear (three steps) ARTICLES SCORE Total number of steps: 10 DRESSING - LOWER BODY - STEP 1: Does the patient require help when dressing below the waist? Yes. DRESSING - LOWER BODY - STEP 2: Does the patient require the assistance of a helper? Yes. DRESSING - LOWER BODY - STEP 3: Does the helper touch the patient while dressing? Yes. DRESSING - LOWER BODY - STEP 4: How many of the total steps does the patient complete on his/her own? 10 DRESSING - LOWER BODY - SCORE: 4-MIN TOILETING: TOILETING - STEP 1: Does the patient require assistance with toileting? Yes. TOILETING - STEP 2: Does the patient require the assistance of a helper? Yes. TOILETING - STEP 3: How much assistance does the patient require from the helper? Hands-on assistance from the helper TOILETING - STEP 4: Of the 3 tasks: 1) Adjusting clothing prior to use, 2) Cleansing of perineal area, 3) Adjusting clot khalida after use; How many tasks does the patient perform WITHOUT assistance of the helper? Three tasks with steadying assistance from the helper TOILETING - SCORE: 4-MIN BLADDER MANAGEMENT: Activity did not occur on this shift BLADDER MANAGEMENT - SCORE: 7-IND BOWEL MANAGEMENT: Activity did not occur on this shift BOWEL MANAGEMENT - SCORE: 7-IND TRANSFERS: BED, CHAIR, WHEELCHAIR: Activity did not occur on this shift TRANSFERS: BED, CHAIR, WHEELCHAIR - SCORE: 0-UNK TRANSFERS: TOILET: TRANSFERS: TOILET - STEP 1: Does the patient require assistance with toilet transfers? Yes. TRANSFERS: TOILET - STEP 2: Does the patient require the assistance of a helper? Yes. TRANSFERS: TOILET - STEP 3: How much assistance does the patient require from the helper? Patient performs half or more of the tr ansferring tasks TRANSFERS: TOILET - STEP 4: Does the patient need only incidental help such as contact guard or steadying during toilet transfer? Yes. TRANSFERS: TOILET - SCORE: 4-MIN TRANSFERS: SHOWER: TRANSFERS: SHOWER - STEP 1: Does the patient require assistance with shower transfers? Yes. TRANSFERS: SHOWER - STEP 2: Does the patient require the assistance of a helper? Yes. TRANSFERS: SHOWER - STEP 3: How much assistance does the patient require from the helper? Only incidental help such as contact gu arding or steadying during shower transfers, or help to lift one leg into the shower TRANSFERS: SHOWER - SCORE: 4-MIN TRANSFERS: TUB: Activity did not occur on this shift TRANSFERS: TUB - SCORE: 0-UNK LOCOMOTION: WALK: Activity did not occur on this shift LOCOMOTION: WALK - SCORE: 0-UNK LOCOMOTION: WHEELCHAIR: Activity did not occur on this shift LOCOMOTION: WHEELCHAIR - SCORE: 0-UNK LOCOMOTION: STAIRS: Activity did not occur on this shift LOCOMOTION: STAIRS - SCORE: 0-UNK COMPREHENSION: COMPREHENSION - SCORE: 0-UNK EXPRESSION EXPRESSION - SCORE: 0-UNK SOCIAL INTERACTION: SOCIAL INTERACTION - SCORE: 0-UNK PROBLEM SOLVING: PROBLEM SOLVING - SCORE: 0-UNK MEMORY: MEMORY - SCORE: 0-UNK SIGNATURE PANEL: The following modified sections: Eating - Score, Grooming - Score, Bathing - Score, Dressing - Upper Body - Score, Dressing - Lower Body - Score, Toileting - Score, Transfers: Bed, Chair, Wheelchair - S core, Transfers: Toilet - Score, Transfers: Shower - Score, Transfers: Tub - Score, Comprehension - S core, Expression - Score, Social Interaction - Score, Problem Solving - Score, Memory - Score were [e lectronically] signed by PREM Rosado on WedDec 31 2017 14:12:34 T-0500 ([facility] Time)
--- NOTE | 2017-12-31 14:58 | FAST ---
ENCOUNTER DATE AND TIME: 12/30/2017 08:00 (CDT) NAME JUANA MARQUEZ DATE OF : 1935 DATE OF ADMISSION: 12/27/2017 15:41 (CDT) PHONE: AGE: 82 SSN# [id number] GENDER: Female ENCOUNTER PHYSICIAN: Dr. Arun Joshua M.D. ADMISSION DIAGNOSIS: - Debility 16 - Debility (16) Multiple Falls. EATING: Activity did not occur on this shift EATING - SCORE: 0-UNK GROOMING: Activity did not occur on this shift GROOMING - SCORE: 0-UNK BATHING: Activity did not occur on this shift BATHING - SCORE: 0-UNK DRESSING - UPPER BODY: Activity did not occur on this shift ARTICLES SCORE Total number of steps: 0 DRESSING - UPPER BODY - SCORE: 0-UNK DRESSING - LOWER BODY: Elastic waist pants (three steps) Underwear (three steps) ARTICLES SCORE Total number of steps: 6 DRESSING - LOWER BODY - STEP 1: Does the patient require help when dressing below the waist? Yes. DRESSING - LOWER BODY - STEP 2: Does the patient require the assistance of a helper? Yes. DRESSING - LOWER BODY - STEP 3: Does the helper touch the patient while dressing? Yes. DRESSING - LOWER BODY - STEP 4: How many of the total steps does the patient complete on his/her own? 3 DRESSING - LOWER BODY - SCORE: 3-MOD TOILETING: TOILETING - STEP 1: Does the patient require assistance with toileting? Yes. TOILETING - STEP 2: Does the patient require the assistance of a helper? Yes. TOILETING - STEP 3: How much assistance does the patient require from the helper? Hands-on assistance from the helper TOILETING - STEP 4: Of the 3 tasks: 1) Adjusting clothing prior to use, 2) Cleansing of perineal area, 3) Adjusting clot khalida after use; How many tasks does the patient perform WITHOUT assistance of the helper? Three tasks with steadying assistance from the helper TOILETING - SCORE: 4-MIN BLADDER MANAGEMENT: Activity did not occur on this shift BLADDER MANAGEMENT - SCORE: 7-IND BOWEL MANAGEMENT: Activity did not occur on this shift BOWEL MANAGEMENT - SCORE: 7-IND TRANSFERS: BED, CHAIR, WHEELCHAIR: Activity did not occur on this shift TRANSFERS: BED, CHAIR, WHEELCHAIR - SCORE: 0-UNK TRANSFERS: TOILET: TRANSFERS: TOILET - STEP 1: Does the patient require assistance with toilet transfers? Yes. TRANSFERS: TOILET - STEP 2: Does the patient require the assistance of a helper? Yes. TRANSFERS: TOILET - STEP 3: How much assistance does the patient require from the helper? Patient performs half or more of the tr ansferring tasks TRANSFERS: TOILET - STEP 4: Does the patient need only incidental help such as contact guard or steadying during toilet transfer? Yes. TRANSFERS: TOILET - SCORE: 4-MIN TRANSFERS: SHOWER: Activity did not occur on this shift TRANSFERS: SHOWER - SCORE: 0-UNK TRANSFERS: TUB: Activity did not occur on this shift TRANSFERS: TUB - SCORE: 0-UNK LOCOMOTION: WALK: Activity did not occur on this shift LOCOMOTION: WALK - SCORE: 0-UNK LOCOMOTION: WHEELCHAIR: Activity did not occur on this shift LOCOMOTION: WHEELCHAIR - SCORE: 0-UNK LOCOMOTION: STAIRS: Activity did not occur on this shift LOCOMOTION: STAIRS - SCORE: 0-UNK COMPREHENSION: COMPREHENSION - SCORE: 0-UNK EXPRESSION EXPRESSION - SCORE: 0-UNK SOCIAL INTERACTION: SOCIAL INTERACTION - SCORE: 0-UNK PROBLEM SOLVING: PROBLEM SOLVING - SCORE: 0-UNK MEMORY: MEMORY - SCORE: 0-UNK SIGNATURE PANEL: The following modified sections: Eating - Score, Grooming - Score, Bathing - Score, Dressing - Upper Body - Score, Dressing - Lower Body - Score, Toileting - Score, Transfers: Bed, Chair, Wheelchair - S core, Transfers: Toilet - Score, Transfers: Shower - Score, Transfers: Tub - Score, Comprehension - S core, Expression - Score, Social Interaction - Score, Problem Solving - Score, Memory - Score were [e lectronically] signed by PREM Rosado on WedDec 31 2017 14:58:11 T-0500 ([facility] Time)
--- NOTE | 2017-12-31 16:11 | FAST ---
ENCOUNTER DATE AND TIME: 12/31/2017 08:00 (CDT) NAME JUANA MARQUEZ DATE OF : 1935 DATE OF ADMISSION: 12/27/2017 15:41 (CDT) PHONE: AGE: 82 SSN# [id number] GENDER: Female ENCOUNTER PHYSICIAN: Dr. Arun Joshua M.D. ADMISSION DIAGNOSIS: - Debility 16 - Debility (16) Multiple Falls. EATING: Activity did not occur on this shift EATING - SCORE: 0-UNK GROOMING: Activity did not occur on this shift GROOMING - SCORE: 0-UNK BATHING: Activity did not occur on this shift BATHING - SCORE: 0-UNK DRESSING - UPPER BODY: Activity did not occur on this shift Patient is not dressing in public clothing ARTICLES SCORE Total number of steps: 0 DRESSING - UPPER BODY - SCORE: 0-UNK DRESSING - LOWER BODY: Activity did not occur on this shift Patient is not dressing in public clothing ARTICLES SCORE Total number of steps: 0 DRESSING - LOWER BODY - SCORE: 0-UNK TOILETING: Activity did not occur on this shift TOILETING - SCORE: 0-UNK BLADDER MANAGEMENT: Activity did not occur on this shift BLADDER MANAGEMENT - SCORE: 7-IND BOWEL MANAGEMENT: Activity did not occur on this shift BOWEL MANAGEMENT - SCORE: 7-IND TRANSFERS: BED, CHAIR, WHEELCHAIR: TRANSFERS: BED, CHAIR, WHEELCHAIR - STEP 1: Does the patient require assistance with bed, chair, or wheelchair transfers? Yes. TRANSFERS: BED, CHAIR, WHEELCHAIR - STEP 2: Does the patient require the assistance of a helper? Yes. TRANSFERS: BED, CHAIR, WHEELCHAIR - STEP 3: How much assistance does the patient require from the helper? Only supervision TRANSFERS: BED, CHAIR, WHEELCHAIR - SCORE: 5-SUP TRANSFERS: TOILET: Activity did not occur on this shift TRANSFERS: TOILET - SCORE: 0-UNK TRANSFERS: SHOWER: Activity did not occur on this shift TRANSFERS: SHOWER - SCORE: 0-UNK TRANSFERS: TUB: Activity did not occur on this shift TRANSFERS: TUB - SCORE: 0-UNK LOCOMOTION: WALK: LOCOMOTION: WALK - STEP 1: Does the patient need help to walk 150 feet? Yes. LOCOMOTION: WALK - STEP 2: How much assistance does the patient require to walk a minimum of 150 feet? Only supervision, cuing, or coaxing LOCOMOTION: WALK - SCORE: 5-SUP LOCOMOTION: WHEELCHAIR: Activity did not occur on this shift LOCOMOTION: WHEELCHAIR - SCORE: 0-UNK LOCOMOTION: STAIRS: Activity did not occur on this shift LOCOMOTION: STAIRS - SCORE: 0-UNK COMPREHENSION: COMPREHENSION - SCORE: 0-UNK EXPRESSION EXPRESSION - SCORE: 0-UNK SOCIAL INTERACTION: SOCIAL INTERACTION - SCORE: 0-UNK PROBLEM SOLVING: PROBLEM SOLVING - SCORE: 0-UNK MEMORY: MEMORY - SCORE: 0-UNK SIGNATURE PANEL: The following modified sections: Transfers: Bed, Chair, Wheelchair - Score, Transfers: Toilet - Score , Locomotion: Walk - Score, Locomotion: Wheelchair - Score, Locomotion: Stairs - Score were [electron ically] signed by Alistair Pedraza PT on WedDec 31 2017 16:10:37 T-0500 (Central Daylight Time)
[2017-12-31] MEDS: ENOXAPARIN 40 MG/0.4 ML SQ SCH (17:02)
[2017-12-31] MEDS: ATORVASTATIN 40 MG TAB PO SCH (20:06)
[2017-12-31] MEDS: MELATONIN 3 MG TABLET PO PRN (21:49)
[2018-01-01] MEDS: AMOXICILLIN TRIHYDR 250 MG CAP PO SCH ×3 (00:20→16:57)
--- NOTE | 2018-01-01 02:16 | FAST ---
SHIFT START DATE/TIME: 12/31/2017 19:00 (CDT) SHIFT END DATE/TIME: 01/01/2018 07:00 (CDT) NAME JUANA MARQUEZ DATE OF : 1935 DATE OF ADMISSION: 12/27/2017 15:41 (CDT) PHONE: AGE: 82 SSN# [id number] GENDER: Female ENCOUNTER PHYSICIAN: Dr. Arun Joshua M.D. ADMISSION DIAGNOSIS: - Debility 16 - Debility (16) Multiple Falls. EATING: Activity did not occur on this shift EATING - SCORE: 0-UNK GROOMING: Activity did not occur on this shift GROOMING - SCORE: 0-UNK BATHING: Activity did not occur on this shift BATHING - SCORE: 0-UNK DRESSING - UPPER BODY: Patient is not dressing in public clothing ARTICLES SCORE Total number of steps: 0 DRESSING - UPPER BODY - SCORE: 0-UNK DRESSING - LOWER BODY: Patient is not dressing in public clothing ARTICLES SCORE Total number of steps: 0 DRESSING - LOWER BODY - SCORE: 0-UNK TOILETING: TOILETING - STEP 1: Does the patient require assistance with toileting? Yes. TOILETING - STEP 2: Does the patient require the assistance of a helper? Yes. TOILETING - STEP 3: How much assistance does the patient require from the helper? Hands-on assistance from the helper TOILETING - STEP 4: Of the 3 tasks: 1) Adjusting clothing prior to use, 2) Cleansing of perineal area, 3) Adjusting clot khalida after use; How many tasks does the patient perform WITHOUT assistance of the helper? Three tasks with steadying assistance from the helper TOILETING - SCORE: 4-MIN BLADDER MANAGEMENT: BLADDER MANAGEMENT - STEP 1: Does the patient control the bladder completely and intentionally without equipment or devices or med ications, and is always continent? No. BLADDER MANAGEMENT - STEP 2: Does the patient require the assistance of a helper? Yes. BLADDER MANAGEMENT - STEP 3: How much assistance does the patient require from the helper? Patient requires contact assistance fro m the helper BLADDER MANAGEMENT - STEP 4: How much contact assistance does the patient require from the helper? Patient requires minimal assist ance to maintain an external device - by positioning, and the patient performs 75% or more of bladder management tasks, while the helper provides less than 25% of the assistance to position patient on / off bedpan BLADDER MANAGEMENT - SCORE: 4-MIN BLADDER MANAGEMENT - FREQUENCY OF ACCIDENTS: BLADDER MANAGEMENT(FA) - STEP 1: How many accidents has the patient had during the current shift? 1 BOWEL MANAGEMENT: Activity did not occur on this shift BOWEL MANAGEMENT - SCORE: 7-IND TRANSFERS: BED, CHAIR, WHEELCHAIR: TRANSFERS: BED, CHAIR, WHEELCHAIR - STEP 1: Does the patient require assistance with bed, chair, or wheelchair transfers? Yes. TRANSFERS: BED, CHAIR, WHEELCHAIR - STEP 2: Does the patient require the assistance of a helper? Yes. TRANSFERS: BED, CHAIR, WHEELCHAIR - STEP 3: How much assistance does the patient require from the helper? Steadying/guiding assistance TRANSFERS: BED, CHAIR, WHEELCHAIR - SCORE: 4-MIN TRANSFERS: TOILET: TRANSFERS: TOILET - STEP 1: Does the patient require assistance with toilet transfers? Yes. TRANSFERS: TOILET - STEP 2: Does the patient require the assistance of a helper? Yes. TRANSFERS: TOILET - STEP 3: How much assistance does the patient require from the helper? Patient performs half or more of the tr ansferring tasks TRANSFERS: TOILET - STEP 4: Does the patient need only incidental help such as contact guard or steadying during toilet transfer? Yes. TRANSFERS: TOILET - SCORE: 4-MIN TRANSFERS: SHOWER: Activity did not occur on this shift TRANSFERS: SHOWER - SCORE: 0-UNK TRANSFERS: TUB: Activity did not occur on this shift TRANSFERS: TUB - SCORE: 0-UNK LOCOMOTION: WALK: Activity did not occur on this shift LOCOMOTION: WALK - SCORE: 0-UNK LOCOMOTION: WHEELCHAIR: Activity did not occur on this shift LOCOMOTION: WHEELCHAIR - SCORE: 0-UNK COMPREHENSION: COMPREHENSION: TYPE: Both COMPREHENSION - STEP 1: Does the patient require help to understand complex and abstract ideas (such as current events, finan mitra, discharge planning, medical issues, relationships, etc)? Yes. COMPREHENSION - STEP 2: Does the patient require help to understand questions or statements about basic needs or ideas (such as hunger, thirst, sleep, safety, daily schedule, room location, or discomfort) half or more of the t janiya? No. COMPREHENSION - STEP 3: How often does the patient need help to understand directions and conversation about basic needs? 10% - 24% of the time COMPREHENSION - SCORE: 4-MIN EXPRESSION EXPRESSION: TYPE: Both EXPRESSION - STEP 1: Does the patient require help expressing complex and abstract ideas (such as current events, finances , discharge planning, medical issues, relationships, etc)? No. EXPRESSION - STEP 2: Does the patient need extra time, require an assistive device (such as augmentive communication syste m or a communication board), OR does s/he have mild difficulty expressing complex and abstract ideas (including mild dysarthria or mild word-find problems)? Yes. EXPRESSION - SCORE: 6-HIPOLITO SOCIAL INTERACTION: SOCIAL INTERACTION - STEP 1: Does the patient require a helper to interact with others in social and therapeutic situations? No. SOCIAL INTERACTION - STEP 2: Does the patient need extra time in social situations, OR does s/he interact with staff, other patien ts, and family members ONLY in structured environments, OR does s/he require medication for social in teraction? Yes, patient needs extra time SOCIAL INTERACTION - SCORE: 6-HIPOLITO PROBLEM SOLVING: Patient requires bed/chair alarms due to attempts to get up unassisted when helper is needed. PROBLEM SOLVING - STEP 1: How often do the bed/chair alarms go off? Sometimes - the alarms go off about half the time PROBLEM SOLVING - SCORE: 3-MOD MEMORY: MEMORY - STEP 1: How often do the bed/chair alarms go off? Sometimes - the alarms go off about half the time MEMORY - SCORE: 3-MOD
[2018-01-01] MEDS: LEVOTHYROXINE SOD 0.1 MG TAB PO SCH (05:13)
[2018-01-01] MEDS: METOPROLOL XL 50 MG TAB PO SCH ×2 (05:58→16:57)
[2018-01-01] MEDS: SOLIFENACIN SUCCINATE 10 MG PO SCH (08:13)
[2018-01-01] MEDS: LIDOCAINE 5% PATCH TOP SCH (08:13)
[2018-01-01] MEDS: CLOPIDOGREL 75 MG TABLET PO SCH (08:14)
[2018-01-01] MEDS: GABAPENTIN 100 MG CAP PO SCH ×3 (08:14→20:28)
[2018-01-01] MEDS: LORATADINE 10 MG TAB PO SCH (08:14)
[2018-01-01] MEDS: VALSARTAN 80 MG TAB PO SCH (08:14)
[2018-01-01] MEDS: FE SULF/FA/VIT B COMP & C TAB PO SCH (08:14)
[2018-01-01] MEDS: MINOXIDIL 2.5 MG TAB PO SCH ×2 (08:15→20:28)
[2018-01-01] MEDS: SERTRALINE HCL 100 MG TAB PO SCH (08:15)
[2018-01-01] MEDS: TRAMADOL HCL 50 MG TAB PO PRN (08:15)
[2018-01-01] MEDS: PROMOD 30 ML DOSE PO SCH ×2 (08:16→20:29)
--- NOTE | 2018-01-01 11:55 | FAST ---
ENCOUNTER DATE AND TIME: 01/01/2018 08:00 (CDT) NAME JUANA MARQUEZ DATE OF : 1935 DATE OF ADMISSION: 12/27/2017 15:41 (CDT) PHONE: AGE: 82 SSN# [id number] GENDER: Female ENCOUNTER PHYSICIAN: Dr. Arun Joshua M.D. ADMISSION DIAGNOSIS: - Debility 16 - Debility (16) Multiple Falls. EATING: Activity did not occur on this shift EATING - SCORE: 0-UNK GROOMING: Activity did not occur on this shift GROOMING - SCORE: 0-UNK BATHING: Activity did not occur on this shift BATHING - SCORE: 0-UNK DRESSING - UPPER BODY: Activity did not occur on this shift Patient is not dressing in public clothing ARTICLES SCORE Total number of steps: 0 DRESSING - UPPER BODY - SCORE: 0-UNK DRESSING - LOWER BODY: Activity did not occur on this shift Patient is not dressing in public clothing ARTICLES SCORE Total number of steps: 0 DRESSING - LOWER BODY - SCORE: 0-UNK TOILETING: Activity did not occur on this shift TOILETING - SCORE: 0-UNK BLADDER MANAGEMENT: Activity did not occur on this shift BLADDER MANAGEMENT - SCORE: 7-IND BOWEL MANAGEMENT: Activity did not occur on this shift BOWEL MANAGEMENT - SCORE: 7-IND TRANSFERS: BED, CHAIR, WHEELCHAIR: TRANSFERS: BED, CHAIR, WHEELCHAIR - STEP 1: Does the patient require assistance with bed, chair, or wheelchair transfers? Yes. TRANSFERS: BED, CHAIR, WHEELCHAIR - STEP 2: Does the patient require the assistance of a helper? Yes. TRANSFERS: BED, CHAIR, WHEELCHAIR - STEP 3: How much assistance does the patient require from the helper? Only supervision TRANSFERS: BED, CHAIR, WHEELCHAIR - SCORE: 5-SUP TRANSFERS: TOILET: Activity did not occur on this shift TRANSFERS: TOILET - SCORE: 0-UNK TRANSFERS: SHOWER: Activity did not occur on this shift TRANSFERS: SHOWER - SCORE: 0-UNK TRANSFERS: TUB: Activity did not occur on this shift TRANSFERS: TUB - SCORE: 0-UNK LOCOMOTION: WALK: LOCOMOTION: WALK - STEP 1: Does the patient need help to walk 150 feet? Yes. LOCOMOTION: WALK - STEP 2: How much assistance does the patient require to walk a minimum of 150 feet? Only incidental help such as contact guarding or steadying LOCOMOTION: WALK - SCORE: 4-MIN LOCOMOTION: WHEELCHAIR: Activity did not occur on this shift LOCOMOTION: WHEELCHAIR - SCORE: 0-UNK LOCOMOTION: STAIRS: Activity did not occur on this shift LOCOMOTION: STAIRS - SCORE: 0-UNK COMPREHENSION: COMPREHENSION - SCORE: 0-UNK EXPRESSION EXPRESSION - SCORE: 0-UNK SOCIAL INTERACTION: SOCIAL INTERACTION - SCORE: 0-UNK PROBLEM SOLVING: PROBLEM SOLVING - SCORE: 0-UNK MEMORY: MEMORY - SCORE: 0-UNK SIGNATURE PANEL: The following modified sections: Transfers: Bed, Chair, Wheelchair - Score, Transfers: Toilet - Score , Locomotion: Walk - Score, Locomotion: Wheelchair - Score, Locomotion: Stairs - Score were [electron ically] signed by Charito Lira PTA on Sat Jan 01 2018 11:54:13 GMT-0500 (Central Daylight Time)
--- NOTE | 2018-01-01 14:10 | FAST ---
SHIFT START DATE/TIME: 01/01/2018 07:00 (CDT) SHIFT END DATE/TIME: 01/01/2018 19:00 (CDT) NAME JUANA MARQUEZ DATE OF : 1935 DATE OF ADMISSION: 12/27/2017 15:41 (CDT) PHONE: AGE: 82 SSN# [id number] GENDER: Female ENCOUNTER PHYSICIAN: Dr. Arun Joshua M.D. ADMISSION DIAGNOSIS: - Debility 16 - Debility (16) Multiple Falls. EATING: EATING - STEP 1: Does the patient require assistance when eating? Yes. EATING - STEP 2: Does the patient require the assistance of a helper? Yes. EATING - STEP 3: Does the patient perform half or more of the eating tasks? Yes. EATING - STEP 4: Does the patient need only supervision, cuing, coaxing OR help to apply an orthosis OR help to cut fo od, open containers, pour liquids, or butter bread? Yes. EATING - SCORE: 5-SUP GROOMING: Comb/brush hair Oral care Wash, rinse, and dry face Wash, rinse, and dry hands GROOMING - STEP 1: Does the patient require assistance when grooming? Yes. GROOMING - STEP 2: Does the patient require the assistance of a helper? No. The patient only requires an assistive devic e, OR takes more than reasonable time to groom, OR there is a concern for safety as the patient groom s GROOMING - SCORE: 6-HIPOLITO BATHING: Activity did not occur on this shift BATHING - SCORE: 0-UNK DRESSING - UPPER BODY: Bra (three steps) T-shirt/pullover shirt (four steps) ARTICLES SCORE Total number of steps: 7 DRESSING - UPPER BODY - STEP 1: Does the patient require help when dressing above the waist? Yes. DRESSING - UPPER BODY - STEP 2: Does the patient require the assistance of a helper? Yes. DRESSING - UPPER BODY - STEP 3: Does the helper touch the patient while dressing? Yes. DRESSING - UPPER BODY - STEP 4: How many of the total steps does the patient complete on his/her own? 4 DRESSING - UPPER BODY - SCORE: 3-MOD DRESSING - LOWER BODY: Elastic waist pants (three steps) Slip-on shoe - Left foot (one step) Slip-on shoe - Right foot (one step) ARTICLES SCORE Total number of steps: 5 DRESSING - LOWER BODY - STEP 1: Does the patient require help when dressing below the waist? Yes. DRESSING - LOWER BODY - STEP 2: Does the patient require the assistance of a helper? Yes. DRESSING - LOWER BODY - STEP 3: Does the helper touch the patient while dressing? Yes. DRESSING - LOWER BODY - STEP 4: How many of the total steps does the patient complete on his/her own? 2 DRESSING - LOWER BODY - STEP 5: Does patient require total assistance for dressing below the waist such as the helper holding clothin g and performing basically all the activities? Yes. DRESSING - LOWER BODY - SCORE: 1-DEP TOILETING: TOILETING - STEP 1: Does the patient require assistance with toileting? Yes. TOILETING - STEP 2: Does the patient require the assistance of a helper? Yes. TOILETING - STEP 3: How much assistance does the patient require from the helper? Hands-on assistance from the helper TOILETING - STEP 4: Of the 3 tasks: 1) Adjusting clothing prior to use, 2) Cleansing of perineal area, 3) Adjusting clot kahlida after use; How many tasks does the patient perform WITHOUT assistance of the helper? One task TOILETING - SCORE: 2-MAX BLADDER MANAGEMENT: BLADDER MANAGEMENT - STEP 1: Does the patient control the bladder completely and intentionally without equipment or devices or med ications, and is always continent? No. BLADDER MANAGEMENT - STEP 2: Does the patient require the assistance of a helper? Yes. BLADDER MANAGEMENT - STEP 3: How much assistance does the patient require from the helper? Only supervision, stand-by, cuing, or c oaxing BLADDER MANAGEMENT - SCORE: 5-SUP BLADDER MANAGEMENT - FREQUENCY OF ACCIDENTS: BLADDER MANAGEMENT(FA) - STEP 1: How many accidents has the patient had during the current shift? 0 BOWEL MANAGEMENT: BOWEL MANAGEMENT - STEP 1: Does the patient control bowels completely and intentionally without equipment devices or medications AND is always continent? No. BOWEL MANAGEMENT - STEP 2: Does the patient require the assistance of a helper? No, patient requires medication for control such as stool softeners, suppositories, laxatives, enemas, or OTC medications BOWEL MANAGEMENT - SCORE: 6-HIPOLITO BOWEL MANAGEMENT - FREQUENCY OF ACCIDENTS: BOWEL MANAGEMENT(FA) - STEP 1: How many accidents has the patient had during the current shift? 0 TRANSFERS: BED, CHAIR, WHEELCHAIR: TRANSFERS: BED, CHAIR, WHEELCHAIR - STEP 1: Does the patient require assistance with bed, chair, or wheelchair transfers? Yes. TRANSFERS: BED, CHAIR, WHEELCHAIR - STEP 2: Does the patient require the assistance of a helper? Yes. TRANSFERS: BED, CHAIR, WHEELCHAIR - STEP 3: How much assistance does the patient require from the helper? Steadying/guiding assistance TRANSFERS: BED, CHAIR, WHEELCHAIR - SCORE: 4-MIN TRANSFERS: TOILET: TRANSFERS: TOILET - STEP 1: Does the patient require assistance with toilet transfers? Yes. TRANSFERS: TOILET - STEP 2: Does the patient require the assistance of a helper? Yes. TRANSFERS: TOILET - STEP 3: How much assistance does the patient require from the helper? Patient performs half or more of the tr ansferring tasks TRANSFERS: TOILET - STEP 4: Does the patient need only incidental help such as contact guard or steadying during toilet transfer? Yes. TRANSFERS: TOILET - SCORE: 4-MIN TRANSFERS: SHOWER: Activity did not occur on this shift TRANSFERS: SHOWER - SCORE: 0-UNK TRANSFERS: TUB: Activity did not occur on this shift TRANSFERS: TUB - SCORE: 0-UNK LOCOMOTION: WALK: Activity did not occur on this shift LOCOMOTION: WALK - SCORE: 0-UNK LOCOMOTION: WHEELCHAIR: LOCOMOTION: WHEELCHAIR - STEP 1: Does the patient need help to go 150 feet in a wheelchair? Yes. LOCOMOTION: WHEELCHAIR - STEP 2: How much assistance does the patient need from the helper? Only incidental help such as around corner s or over thresholds LOCOMOTION: WHEELCHAIR - SCORE: 4-MIN COMPREHENSION: COMPREHENSION: TYPE: Both COMPREHENSION - STEP 1: Does the patient require help to understand complex and abstract ideas (such as current events, finan mitra, discharge planning, medical issues, relationships, etc)? Yes. COMPREHENSION - STEP 2: Does the patient require help to understand questions or statements about basic needs or ideas (such as hunger, thirst, sleep, safety, daily schedule, room location, or discomfort) half or more of the t janiya? No. COMPREHENSION - STEP 3: How often does the patient need help to understand directions and conversation about basic needs? Les s than 10% of the time COMPREHENSION - SCORE: 5-SUP EXPRESSION EXPRESSION: TYPE: Both EXPRESSION - STEP 1: Does the patient require help expressing complex and abstract ideas (such as current events, finances , discharge planning, medical issues, relationships, etc)? Yes. EXPRESSION - STEP 2: Does the patient require help to express basic necessities or ideas (such as hunger, thirst, sleep, s afety, daily schedule, room location, or discomfort) half or more of the time? No. EXPRESSION - STEP 3: How often does the patient need help to express directions and conversation about basic needs? Less t boothe 10% of the time EXPRESSION - SCORE: 5-SUP SOCIAL INTERACTION: SOCIAL INTERACTION - STEP 1: Does the patient require a helper to interact with others in social and therapeutic situations? No. SOCIAL INTERACTION - STEP 2: Does the patient need extra time in social situations, OR does s/he interact with staff, other patien ts, and family members ONLY in structured environments, OR does s/he require medication for social in teraction? Yes, patient needs extra time SOCIAL INTERACTION - SCORE: 6-HIPOLITO PROBLEM SOLVING: PROBLEM SOLVING - STEP 1: Does the patient need help to solve complex problems such as managing a checking account or confronti ng interpersonal problems? Yes. PROBLEM SOLVING - STEP 2: Does the patient solve basic routine problems half or more of the time? Yes. PROBLEM SOLVING - STEP 3: How often does the patient need help to solve basic routine problems? Less than 10% of the time PROBLEM SOLVING - SCORE: 5-SUP MEMORY: MEMORY - STEP 1: Does the patient need help to remember frequently encountered people, daily routines, and executing r equests? Yes. MEMORY - STEP 2: How often does the patient need help to remember frequently encountered people, daily routines, and e xecuting requests? Less than 10% of the time MEMORY - SCORE: 5-SUP SIGNATURE PANEL: The following modified sections: Eating - Score, Grooming - Score, Bathing - Score, Dressing - Upper Body - Score, Dressing - Lower Body - Score, Toileting - Score, Bladder Management - Score, Bowel Man agement - Score, Transfers: Bed, Chair, Wheelchair - Score, Transfers: Toilet - Score, Transfers: Laila wer - Score, Transfers: Tub - Score, Locomotion: Walk - Score, Locomotion: Wheelchair - Score, Compre hension - Score, Expression - Score, Social Interaction - Score, Problem Solving - Score, Memory - Sc ore were [electronically] signed by La Jackson C.N.A. on Sat Jan 01 2018 14:09:27 T-0500 ([facility] Time)
[2018-01-01] MEDS: ENOXAPARIN 40 MG/0.4 ML SQ SCH (16:57)
[2018-01-01] MEDS: DOCUSATE NA/SENNA CONC 1 TAB PO PRN (20:28)
[2018-01-01] MEDS: ATORVASTATIN 40 MG TAB PO SCH (20:28)
[2018-01-01] MEDS: MELATONIN 3 MG TABLET PO PRN (22:06)
[2018-01-02] MEDS: AMOXICILLIN TRIHYDR 250 MG CAP PO SCH ×3 (00:32→16:54)
--- NOTE | 2018-01-02 01:44 | FAST ---
SHIFT START DATE/TIME: 01/01/2018 19:00 (CDT) SHIFT END DATE/TIME: 01/02/2018 07:00 (CDT) NAME JUANA MARQUEZ DATE OF : 1935 DATE OF ADMISSION: 12/27/2017 15:41 (CDT) PHONE: AGE: 82 SSN# [id number] GENDER: Female ENCOUNTER PHYSICIAN: Dr. Arun Joshua M.D. ADMISSION DIAGNOSIS: - Debility 16 - Debility (16) Multiple Falls. EATING: Activity did not occur on this shift EATING - SCORE: 0-UNK GROOMING: Wash, rinse, and dry hands GROOMING - STEP 1: Does the patient require assistance when grooming? Yes. GROOMING - STEP 2: Does the patient require the assistance of a helper? Yes. GROOMING - STEP 3: How much assistance does the patient require from the helper? Cuing, coaxing, instructions, or encour agement for completion of grooming GROOMING - SCORE: 5-SUP BATHING: Activity did not occur on this shift BATHING - SCORE: 0-UNK DRESSING - UPPER BODY: Patient is not dressing in public clothing ARTICLES SCORE Total number of steps: 0 DRESSING - UPPER BODY - SCORE: 0-UNK DRESSING - LOWER BODY: Patient is not dressing in public clothing ARTICLES SCORE Total number of steps: 0 DRESSING - LOWER BODY - SCORE: 0-UNK TOILETING: TOILETING - STEP 1: Does the patient require assistance with toileting? Yes. TOILETING - STEP 2: Does the patient require the assistance of a helper? Yes. TOILETING - STEP 3: How much assistance does the patient require from the helper? Hands-on assistance from the helper TOILETING - STEP 4: Of the 3 tasks: 1) Adjusting clothing prior to use, 2) Cleansing of perineal area, 3) Adjusting clot khalida after use; How many tasks does the patient perform WITHOUT assistance of the helper? One task TOILETING - SCORE: 2-MAX BLADDER MANAGEMENT: [place] removes incontinent device (Depends, pull ups, etc.); cleans the patient after accident / inco ntinent episode; and, applies new incontinent device. BLADDER MANAGEMENT - SCORE: 1-DEP BOWEL MANAGEMENT: Activity did not occur on this shift BOWEL MANAGEMENT - SCORE: 7-IND TRANSFERS: BED, CHAIR, WHEELCHAIR: TRANSFERS: BED, CHAIR, WHEELCHAIR - STEP 1: Does the patient require assistance with bed, chair, or wheelchair transfers? Yes. TRANSFERS: BED, CHAIR, WHEELCHAIR - STEP 2: Does the patient require the assistance of a helper? Yes. TRANSFERS: BED, CHAIR, WHEELCHAIR - STEP 3: How much assistance does the patient require from the helper? Lifting of the legs TRANSFERS: BED, CHAIR, WHEELCHAIR - STEP 4: How many legs does the patient require the helper to lift? both legs TRANSFERS: BED, CHAIR, WHEELCHAIR - SCORE: 3-MOD TRANSFERS: TOILET: TRANSFERS: TOILET - STEP 1: Does the patient require assistance with toilet transfers? Yes. TRANSFERS: TOILET - STEP 2: Does the patient require the assistance of a helper? Yes. TRANSFERS: TOILET - STEP 3: How much assistance does the patient require from the helper? Patient performs half or more of the tr ansferring tasks TRANSFERS: TOILET - STEP 4: Does the patient need only incidental help such as contact guard or steadying during toilet transfer? Yes. TRANSFERS: TOILET - SCORE: 4-MIN TRANSFERS: SHOWER: Activity did not occur on this shift TRANSFERS: SHOWER - SCORE: 0-UNK TRANSFERS: TUB: Activity did not occur on this shift TRANSFERS: TUB - SCORE: 0-UNK LOCOMOTION: WALK: Activity did not occur on this shift LOCOMOTION: WALK - SCORE: 0-UNK LOCOMOTION: WHEELCHAIR: Activity did not occur on this shift LOCOMOTION: WHEELCHAIR - SCORE: 0-UNK COMPREHENSION: COMPREHENSION: TYPE: Both COMPREHENSION - STEP 1: Does the patient require help to understand complex and abstract ideas (such as current events, finan mitra, discharge planning, medical issues, relationships, etc)? Yes. COMPREHENSION - STEP 2: Does the patient require help to understand questions or statements about basic needs or ideas (such as hunger, thirst, sleep, safety, daily schedule, room location, or discomfort) half or more of the t janiya? No. COMPREHENSION - STEP 3: How often does the patient need help to understand directions and conversation about basic needs? 10% - 24% of the time COMPREHENSION - SCORE: 4-MIN EXPRESSION EXPRESSION: TYPE: Both EXPRESSION - STEP 1: Does the patient require help expressing complex and abstract ideas (such as current events, finances , discharge planning, medical issues, relationships, etc)? No. EXPRESSION - STEP 2: Does the patient need extra time, require an assistive device (such as augmentive communication syste m or a communication board), OR does s/he have mild difficulty expressing complex and abstract ideas (including mild dysarthria or mild word-find problems)? Yes. EXPRESSION - SCORE: 6-HIPOLITO SOCIAL INTERACTION: SOCIAL INTERACTION - STEP 1: Does the patient require a helper to interact with others in social and therapeutic situations? No. SOCIAL INTERACTION - STEP 2: Does the patient need extra time in social situations, OR does s/he interact with staff, other patien ts, and family members ONLY in structured environments, OR does s/he require medication for social in teraction? Yes, patient needs extra time SOCIAL INTERACTION - SCORE: 6-HIPOLITO PROBLEM SOLVING: PROBLEM SOLVING - STEP 1: Does the patient need help to solve complex problems such as managing a checking account or confronti ng interpersonal problems? Yes. PROBLEM SOLVING - STEP 2: Does the patient solve basic routine problems half or more of the time? Yes. PROBLEM SOLVING - STEP 3: How often does the patient need help to solve basic routine problems? 10%-24% of the time PROBLEM SOLVING - SCORE: 4-MIN MEMORY: MEMORY - STEP 1: Does the patient need help to remember frequently encountered people, daily routines, and executing r equests? No. MEMORY - STEP 2: Does the patient have slight difficulty recognizing frequently encountered people, daily routines, or executing requests without the need for repetition or using self-initiated or environmental cues to remember? Yes. MEMORY - SCORE: 6-HIPOLITO SIGNATURE PANEL: The following modified sections: Eating - Score, Grooming - Score, Dressing - Upper Body - Score, Clement ssing - Lower Body - Score, Toileting - Score, Bladder Management - Score, Bowel Management - Score, Transfers: Bed, Chair, Wheelchair - Score, Transfers: Toilet - Score, Transfers: Shower - Score, Graham sfers: Tub - Score, Locomotion: Walk - Score, Locomotion: Wheelchair - Score, Comprehension - Score, Expression - Score, Social Interaction - Score, Problem Solving - Score, Memory - Score were [electro nically] signed by Chica Mann CNA on WedJan 02 2018 01:43:12 T-0500 (Central Daylight Time)
[2018-01-02] MEDS: LEVOTHYROXINE SOD 0.1 MG TAB PO SCH (05:23)
[2018-01-02] MEDS: METOPROLOL XL 50 MG TAB PO SCH ×2 (05:23→16:54)
[2018-01-02] MEDS: FE SULF/FA/VIT B COMP & C TAB PO SCH (08:13)
[2018-01-02] MEDS: SERTRALINE HCL 100 MG TAB PO SCH (08:13)
[2018-01-02] MEDS: GABAPENTIN 100 MG CAP PO SCH ×3 (08:13→20:21)
[2018-01-02] MEDS: CLOPIDOGREL 75 MG TABLET PO SCH (08:13)
[2018-01-02] MEDS: LORATADINE 10 MG TAB PO SCH (08:13)
[2018-01-02] MEDS: PROMOD 30 ML DOSE PO SCH ×2 (08:14→20:19)
[2018-01-02] MEDS: LIDOCAINE 5% PATCH TOP SCH (08:14)
[2018-01-02] MEDS: MINOXIDIL 2.5 MG TAB PO SCH ×2 (09:03→20:19)
[2018-01-02] MEDS: SOLIFENACIN SUCCINATE 10 MG PO SCH (09:04)
--- NOTE | 2018-01-02 10:40 | FAST ---
SHIFT START DATE/TIME: 01/02/2018 07:00 (CDT) SHIFT END DATE/TIME: 01/02/2018 19:00 (CDT) NAME JUANA MARQUEZ DATE OF : 1935 DATE OF ADMISSION: 12/27/2017 15:41 (CDT) PHONE: AGE: 82 SSN# [id number] GENDER: Female ENCOUNTER PHYSICIAN: Dr. Arun Joshua M.D. ADMISSION DIAGNOSIS: - Debility 16 - Debility (16) Multiple Falls. EATING: EATING - STEP 1: Does the patient require assistance when eating? Yes. EATING - STEP 2: Does the patient require the assistance of a helper? Yes. EATING - STEP 3: Does the patient perform half or more of the eating tasks? Yes. EATING - STEP 4: Does the patient need only supervision, cuing, coaxing OR help to apply an orthosis OR help to cut fo od, open containers, pour liquids, or butter bread? Yes. EATING - SCORE: 5-SUP GROOMING: Comb/brush hair Oral care Wash, rinse, and dry face Wash, rinse, and dry hands GROOMING - STEP 1: Does the patient require assistance when grooming? Yes. GROOMING - STEP 2: Does the patient require the assistance of a helper? Yes. GROOMING - STEP 3: How much assistance does the patient require from the helper? Only prior equipment preparation/set up from the helper GROOMING - SCORE: 5-SUP BATHING: Activity did not occur on this shift BATHING - SCORE: 0-UNK DRESSING - UPPER BODY: Activity did not occur on this shift ARTICLES SCORE Total number of steps: 0 DRESSING - UPPER BODY - SCORE: 0-UNK DRESSING - LOWER BODY: Underwear (three steps) ARTICLES SCORE Total number of steps: 3 DRESSING - LOWER BODY - STEP 1: Does the patient require help when dressing below the waist? Yes. DRESSING - LOWER BODY - STEP 2: Does the patient require the assistance of a helper? Yes. DRESSING - LOWER BODY - STEP 3: Does the helper touch the patient while dressing? Yes. DRESSING - LOWER BODY - STEP 4: How many of the total steps does the patient complete on his/her own? 2 DRESSING - LOWER BODY - SCORE: 3-MOD TOILETING: TOILETING - STEP 1: Does the patient require assistance with toileting? Yes. TOILETING - STEP 2: Does the patient require the assistance of a helper? Yes. TOILETING - STEP 3: How much assistance does the patient require from the helper? Hands-on assistance from the helper TOILETING - STEP 4: Of the 3 tasks: 1) Adjusting clothing prior to use, 2) Cleansing of perineal area, 3) Adjusting clot khalida after use; How many tasks does the patient perform WITHOUT assistance of the helper? Three tasks with steadying assistance from the helper TOILETING - SCORE: 4-MIN BLADDER MANAGEMENT: [place] removes incontinent device (Depends, pull ups, etc.); cleans the patient after accident / inco ntinent episode; and, applies new incontinent device. BLADDER MANAGEMENT - SCORE: 1-DEP BLADDER MANAGEMENT - FREQUENCY OF ACCIDENTS: BLADDER MANAGEMENT(FA) - STEP 1: How many accidents has the patient had during the current shift? 1 BOWEL MANAGEMENT: Activity did not occur on this shift BOWEL MANAGEMENT - SCORE: 7-IND BOWEL MANAGEMENT - FREQUENCY OF ACCIDENTS: BOWEL MANAGEMENT(FA) - STEP 1: How many accidents has the patient had during the current shift? 0 TRANSFERS: BED, CHAIR, WHEELCHAIR: TRANSFERS: BED, CHAIR, WHEELCHAIR - STEP 1: Does the patient require assistance with bed, chair, or wheelchair transfers? Yes. TRANSFERS: BED, CHAIR, WHEELCHAIR - STEP 2: Does the patient require the assistance of a helper? Yes. TRANSFERS: BED, CHAIR, WHEELCHAIR - STEP 3: How much assistance does the patient require from the helper? Steadying/guiding assistance TRANSFERS: BED, CHAIR, WHEELCHAIR - SCORE: 4-MIN TRANSFERS: TOILET: TRANSFERS: TOILET - STEP 1: Does the patient require assistance with toilet transfers? Yes. TRANSFERS: TOILET - STEP 2: Does the patient require the assistance of a helper? Yes. TRANSFERS: TOILET - STEP 3: How much assistance does the patient require from the helper? Patient performs half or more of the tr ansferring tasks TRANSFERS: TOILET - STEP 4: Does the patient need only incidental help such as contact guard or steadying during toilet transfer? Yes. TRANSFERS: TOILET - SCORE: 4-MIN TRANSFERS: SHOWER: Activity did not occur on this shift TRANSFERS: SHOWER - SCORE: 0-UNK TRANSFERS: TUB: Activity did not occur on this shift TRANSFERS: TUB - SCORE: 0-UNK LOCOMOTION: WALK: Activity did not occur on this shift LOCOMOTION: WALK - SCORE: 0-UNK LOCOMOTION: WHEELCHAIR: LOCOMOTION: WHEELCHAIR - STEP 1: Does the patient need help to go 150 feet in a wheelchair? Yes. LOCOMOTION: WHEELCHAIR - STEP 2: How much assistance does the patient need from the helper? Only supervision, cuing, or coaxing LOCOMOTION: WHEELCHAIR - SCORE: 5-SUP COMPREHENSION: COMPREHENSION: TYPE: Both COMPREHENSION - STEP 1: Does the patient require help to understand complex and abstract ideas (such as current events, finan mitra, discharge planning, medical issues, relationships, etc)? Yes. COMPREHENSION - STEP 2: Does the patient require help to understand questions or statements about basic needs or ideas (such as hunger, thirst, sleep, safety, daily schedule, room location, or discomfort) half or more of the t janiya? No. COMPREHENSION - STEP 3: How often does the patient need help to understand directions and conversation about basic needs? Les s than 10% of the time COMPREHENSION - SCORE: 5-SUP EXPRESSION EXPRESSION: TYPE: Both EXPRESSION - STEP 1: Does the patient require help expressing complex and abstract ideas (such as current events, finances , discharge planning, medical issues, relationships, etc)? Yes. EXPRESSION - STEP 2: Does the patient require help to express basic necessities or ideas (such as hunger, thirst, sleep, s afety, daily schedule, room location, or discomfort) half or more of the time? No. EXPRESSION - STEP 3: How often does the patient need help to express directions and conversation about basic needs? Less t boothe 10% of the time EXPRESSION - SCORE: 5-SUP SOCIAL INTERACTION: SOCIAL INTERACTION - STEP 1: Does the patient require a helper to interact with others in social and therapeutic situations? Yes. SOCIAL INTERACTION - STEP 2: Does the patient interact appropriately half or more of the time? Yes. SOCIAL INTERACTION - STEP 3: How often does the patient need help to interact appropriately? Less than 10% of the time SOCIAL INTERACTION - SCORE: 5-SUP PROBLEM SOLVING: PROBLEM SOLVING - STEP 1: Does the patient need help to solve complex problems such as managing a checking account or confronti ng interpersonal problems? Yes. PROBLEM SOLVING - STEP 2: Does the patient solve basic routine problems half or more of the time? Yes. PROBLEM SOLVING - STEP 3: How often does the patient need help to solve basic routine problems? Less than 10% of the time PROBLEM SOLVING - SCORE: 5-SUP MEMORY: MEMORY - STEP 1: Does the patient need help to remember frequently encountered people, daily routines, and executing r equests? Yes. MEMORY - STEP 2: How often does the patient need help to remember frequently encountered people, daily routines, and e xecuting requests? Less than 10% of the time MEMORY - SCORE: 5-SUP SIGNATURE PANEL: The following modified sections: Eating - Score, Grooming - Score, Bathing - Score, Dressing - Upper Body - Score, Dressing - Lower Body - Score, Toileting - Score, Bladder Management - Score, Bowel Man agement - Score, Transfers: Bed, Chair, Wheelchair - Score, Transfers: Toilet - Score, Transfers: Laila wer - Score, Transfers: Tub - Score, Locomotion: Walk - Score, Locomotion: Wheelchair - Score, Compre hension - Score, Expression - Score, Social Interaction - Score, Problem Solving - Score, Memory - Sc ore were [electronically] signed by Virginie Medina RN on WedJan 02 2018 10:38:51 T[facility]0500 [facility]
[2018-01-02] MEDS: VALSARTAN 80 MG TAB PO SCH (12:05)
[2018-01-02] MEDS: TRAMADOL HCL 50 MG TAB PO PRN (12:05)
[2018-01-02] MEDS: ENOXAPARIN 40 MG/0.4 ML SQ SCH (16:04)
[2018-01-02] MEDS: ATORVASTATIN 40 MG TAB PO SCH (20:19)
[2018-01-02] MEDS: MELATONIN 3 MG TABLET PO PRN (20:20)
[2018-01-03] MEDS: AMOXICILLIN TRIHYDR 250 MG CAP PO SCH ×3 (00:35→17:28)
--- NOTE | 2018-01-03 02:11 | FAST ---
SHIFT START DATE/TIME: 01/02/2018 19:00 (CDT) SHIFT END DATE/TIME: 01/03/2018 07:00 (CDT) NAME JUANA MARQUEZ DATE OF : 1935 DATE OF ADMISSION: 12/27/2017 15:41 (CDT) PHONE: AGE: 82 SSN# [id number] GENDER: Female ENCOUNTER PHYSICIAN: Dr. Arun Joshua M.D. ADMISSION DIAGNOSIS: - Debility 16 - Debility (16) Multiple Falls. EATING: Activity did not occur on this shift EATING - SCORE: 0-UNK GROOMING: Activity did not occur on this shift GROOMING - SCORE: 0-UNK BATHING: Activity did not occur on this shift BATHING - SCORE: 0-UNK DRESSING - UPPER BODY: Patient is not dressing in public clothing ARTICLES SCORE Total number of steps: 0 DRESSING - UPPER BODY - SCORE: 0-UNK DRESSING - LOWER BODY: Patient is not dressing in public clothing ARTICLES SCORE Total number of steps: 0 DRESSING - LOWER BODY - SCORE: 0-UNK TOILETING: TOILETING - STEP 1: Does the patient require assistance with toileting? Yes. TOILETING - STEP 2: Does the patient require the assistance of a helper? Yes. TOILETING - STEP 3: How much assistance does the patient require from the helper? Hands-on assistance from the helper TOILETING - STEP 4: Of the 3 tasks: 1) Adjusting clothing prior to use, 2) Cleansing of perineal area, 3) Adjusting clot khalida after use; How many tasks does the patient perform WITHOUT assistance of the helper? No tasks; h ashley performs all three tasks TOILETING - SCORE: 1-DEP BLADDER MANAGEMENT: Roseau removes incontinent device (Depends, pull ups, etc.); cleans the patient after accident / inco ntinent episode; and, applies new incontinent device. BLADDER MANAGEMENT - SCORE: 1-DEP BOWEL MANAGEMENT: Activity did not occur on this shift BOWEL MANAGEMENT - SCORE: 7-IND TRANSFERS: BED, CHAIR, WHEELCHAIR: TRANSFERS: BED, CHAIR, WHEELCHAIR - STEP 1: Does the patient require assistance with bed, chair, or wheelchair transfers? Yes. TRANSFERS: BED, CHAIR, WHEELCHAIR - STEP 2: Does the patient require the assistance of a helper? Yes. TRANSFERS: BED, CHAIR, WHEELCHAIR - STEP 3: How much assistance does the patient require from the helper? Lifting of the legs TRANSFERS: BED, CHAIR, WHEELCHAIR - STEP 4: How many legs does the patient require the helper to lift? both legs TRANSFERS: BED, CHAIR, WHEELCHAIR - SCORE: 3-MOD TRANSFERS: TOILET: TRANSFERS: TOILET - STEP 1: Does the patient require assistance with toilet transfers? Yes. TRANSFERS: TOILET - STEP 2: Does the patient require the assistance of a helper? Yes. TRANSFERS: TOILET - STEP 3: How much assistance does the patient require from the helper? Patient performs half or more of the tr ansferring tasks TRANSFERS: TOILET - STEP 4: Does the patient need only incidental help such as contact guard or steadying during toilet transfer? Yes. TRANSFERS: TOILET - SCORE: 4-MIN TRANSFERS: SHOWER: Activity did not occur on this shift TRANSFERS: SHOWER - SCORE: 0-UNK TRANSFERS: TUB: Activity did not occur on this shift TRANSFERS: TUB - SCORE: 0-UNK LOCOMOTION: WALK: Activity did not occur on this shift LOCOMOTION: WALK - SCORE: 0-UNK LOCOMOTION: WHEELCHAIR: Activity did not occur on this shift LOCOMOTION: WHEELCHAIR - SCORE: 0-UNK COMPREHENSION: COMPREHENSION: TYPE: Both COMPREHENSION - STEP 1: Does the patient require help to understand complex and abstract ideas (such as current events, finan mitra, discharge planning, medical issues, relationships, etc)? Yes. COMPREHENSION - STEP 2: Does the patient require help to understand questions or statements about basic needs or ideas (such as hunger, thirst, sleep, safety, daily schedule, room location, or discomfort) half or more of the t janiya? No. COMPREHENSION - STEP 3: How often does the patient need help to understand directions and conversation about basic needs? 10% - 24% of the time COMPREHENSION - SCORE: 4-MIN EXPRESSION EXPRESSION: TYPE: Both EXPRESSION - STEP 1: Does the patient require help expressing complex and abstract ideas (such as current events, finances , discharge planning, medical issues, relationships, etc)? Yes. EXPRESSION - STEP 2: Does the patient require help to express basic necessities or ideas (such as hunger, thirst, sleep, s afety, daily schedule, room location, or discomfort) half or more of the time? No. EXPRESSION - STEP 3: How often does the patient need help to express directions and conversation about basic needs? 10-24% of the time EXPRESSION - SCORE: 4-MIN SOCIAL INTERACTION: SOCIAL INTERACTION - STEP 1: Does the patient require a helper to interact with others in social and therapeutic situations? No. SOCIAL INTERACTION - STEP 2: Does the patient need extra time in social situations, OR does s/he interact with staff, other patien ts, and family members ONLY in structured environments, OR does s/he require medication for social in teraction? Yes, patient needs extra time SOCIAL INTERACTION - SCORE: 6-HIPOLITO PROBLEM SOLVING: PROBLEM SOLVING - STEP 1: Does the patient need help to solve complex problems such as managing a checking account or confronti ng interpersonal problems? Yes. PROBLEM SOLVING - STEP 2: Does the patient solve basic routine problems half or more of the time? Yes. PROBLEM SOLVING - STEP 3: How often does the patient need help to solve basic routine problems? 10%-24% of the time PROBLEM SOLVING - SCORE: 4-MIN MEMORY: MEMORY - STEP 1: Does the patient need help to remember frequently encountered people, daily routines, and executing r equests? No. MEMORY - STEP 2: Does the patient have slight difficulty recognizing frequently encountered people, daily routines, or executing requests without the need for repetition or using self-initiated or environmental cues to remember? Yes. MEMORY - SCORE: 6-HIPOLITO SIGNATURE PANEL: The following modified sections: Eating - Score, Grooming - Score, Dressing - Upper Body - Score, Clement ssing - Lower Body - Score, Toileting - Score, Bladder Management - Score, Bowel Management - Score, Transfers: Bed, Chair, Wheelchair - Score, Transfers: Toilet - Score, Transfers: Shower - Score, Graham sfers: Tub - Score, Locomotion: Walk - Score, Locomotion: Wheelchair - Score, Comprehension - Score, Expression - Score, Social Interaction - Score, Problem Solving - Score, Memory - Score were [electro nically] signed by Chica Mann CNA on WedJan 03 2018 02:09:52 GMT-0500 (Central Daylight Time)
[2018-01-03] MEDS: LEVOTHYROXINE SOD 0.1 MG TAB PO SCH (05:25)
[2018-01-03] MEDS: METOPROLOL XL 25 MG TAB PO SCH ×2 (05:30→17:29)
[2018-01-03] MEDS: MINOXIDIL 2.5 MG TAB PO SCH ×2 (08:25→20:31)
[2018-01-03] MEDS: LORATADINE 10 MG TAB PO SCH (08:26)
[2018-01-03] MEDS: VALSARTAN 80 MG TAB PO SCH (08:26)
[2018-01-03] MEDS: CLOPIDOGREL 75 MG TABLET PO SCH (08:26)
[2018-01-03] MEDS: FE SULF/FA/VIT B COMP & C TAB PO SCH (08:27)
[2018-01-03] MEDS: SERTRALINE HCL 100 MG TAB PO SCH (08:27)
[2018-01-03] MEDS: PROMOD 30 ML DOSE PO SCH ×2 (08:27→20:31)
[2018-01-03] MEDS: GABAPENTIN 100 MG CAP PO SCH ×3 (08:27→20:31)
[2018-01-03] MEDS: LIDOCAINE 5% PATCH TOP SCH (08:28)
[2018-01-03] MEDS: SOLIFENACIN SUCCINATE 10 MG PO SCH (08:28)
--- NOTE | 2018-01-03 14:07 | FAST ---
SHIFT START DATE/TIME: 01/03/2018 07:00 (CDT) SHIFT END DATE/TIME: 01/03/2018 19:00 (CDT) NAME JUANA MARQUEZ DATE OF : 1935 DATE OF ADMISSION: 12/27/2017 15:41 (CDT) PHONE: AGE: 82 SSN# [id number] GENDER: Female ENCOUNTER PHYSICIAN: Dr. Arun Joshua M.D. ADMISSION DIAGNOSIS: - Debility 16 - Debility (16) Multiple Falls. EATING: EATING - STEP 1: Does the patient require assistance when eating? Yes. EATING - STEP 2: Does the patient require the assistance of a helper? No, patient only requires an assistive device, O R s/he takes more than reasonable time to eat, OR there is a safety concern, OR s/he requires modifie d food consistency EATING - SCORE: 6-HIPOLITO GROOMING: Comb/brush hair GROOMING - STEP 1: Does the patient require assistance when grooming? Yes. GROOMING - STEP 2: Does the patient require the assistance of a helper? No. The patient only requires an assistive devic e, OR takes more than reasonable time to groom, OR there is a concern for safety as the patient groom s GROOMING - SCORE: 6-HIPOLITO BATHING: Activity did not occur on this shift BATHING - SCORE: 0-UNK DRESSING - UPPER BODY: Activity did not occur on this shift ARTICLES SCORE Total number of steps: 0 DRESSING - UPPER BODY - SCORE: 0-UNK DRESSING - LOWER BODY: Activity did not occur on this shift ARTICLES SCORE Total number of steps: 0 DRESSING - LOWER BODY - SCORE: 0-UNK TOILETING: TOILETING - STEP 1: Does the patient require assistance with toileting? Yes. TOILETING - STEP 2: Does the patient require the assistance of a helper? Yes. TOILETING - STEP 3: How much assistance does the patient require from the helper? Hands-on assistance from the helper TOILETING - STEP 4: Of the 3 tasks: 1) Adjusting clothing prior to use, 2) Cleansing of perineal area, 3) Adjusting clot khalida after use; How many tasks does the patient perform WITHOUT assistance of the helper? Three tasks with steadying assistance from the helper TOILETING - SCORE: 4-MIN BLADDER MANAGEMENT: BLADDER MANAGEMENT - STEP 1: Does the patient control the bladder completely and intentionally without equipment or devices or med ications, and is always continent? No. BLADDER MANAGEMENT - STEP 2: Does the patient require the assistance of a helper? No, patient requires and independently uses an a ssistive device, such as a urinal, bedpan, bedside commode, catheter, absorbent pad, or collecting de vice BLADDER MANAGEMENT - SCORE: 6-HIPOLITO BOWEL MANAGEMENT: Activity did not occur on this shift BOWEL MANAGEMENT - SCORE: 7-IND TRANSFERS: BED, CHAIR, WHEELCHAIR: TRANSFERS: BED, CHAIR, WHEELCHAIR - STEP 1: Does the patient require assistance with bed, chair, or wheelchair transfers? Yes. TRANSFERS: BED, CHAIR, WHEELCHAIR - STEP 2: Does the patient require the assistance of a helper? Yes. TRANSFERS: BED, CHAIR, WHEELCHAIR - STEP 3: How much assistance does the patient require from the helper? Steadying/guiding assistance TRANSFERS: BED, CHAIR, WHEELCHAIR - SCORE: 4-MIN TRANSFERS: TOILET: TRANSFERS: TOILET - STEP 1: Does the patient require assistance with toilet transfers? Yes. TRANSFERS: TOILET - STEP 2: Does the patient require the assistance of a helper? Yes. TRANSFERS: TOILET - STEP 3: How much assistance does the patient require from the helper? Patient performs half or more of the tr ansferring tasks TRANSFERS: TOILET - STEP 4: Does the patient need only incidental help such as contact guard or steadying during toilet transfer? No. Patient needs more than incidental help TRANSFERS: TOILET - SCORE: 3-MOD TRANSFERS: SHOWER: Activity did not occur on this shift TRANSFERS: SHOWER - SCORE: 0-UNK TRANSFERS: TUB: Activity did not occur on this shift TRANSFERS: TUB - SCORE: 0-UNK LOCOMOTION: WALK: Activity did not occur on this shift LOCOMOTION: WALK - SCORE: 0-UNK LOCOMOTION: WHEELCHAIR: Activity did not occur on this shift LOCOMOTION: WHEELCHAIR - SCORE: 0-UNK COMPREHENSION: COMPREHENSION: TYPE: Both COMPREHENSION - STEP 1: Does the patient require help to understand complex and abstract ideas (such as current events, finan mitra, discharge planning, medical issues, relationships, etc)? Yes. COMPREHENSION - STEP 2: Does the patient require help to understand questions or statements about basic needs or ideas (such as hunger, thirst, sleep, safety, daily schedule, room location, or discomfort) half or more of the t janiya? No. COMPREHENSION - STEP 3: How often does the patient need help to understand directions and conversation about basic needs? Les s than 10% of the time COMPREHENSION - SCORE: 5-SUP EXPRESSION EXPRESSION: TYPE: Both EXPRESSION - STEP 1: Does the patient require help expressing complex and abstract ideas (such as current events, finances , discharge planning, medical issues, relationships, etc)? Yes. EXPRESSION - STEP 2: Does the patient require help to express basic necessities or ideas (such as hunger, thirst, sleep, s afety, daily schedule, room location, or discomfort) half or more of the time? No. EXPRESSION - STEP 3: How often does the patient need help to express directions and conversation about basic needs? 10-24% of the time EXPRESSION - SCORE: 4-MIN SOCIAL INTERACTION: SOCIAL INTERACTION - STEP 1: Does the patient require a helper to interact with others in social and therapeutic situations? No. SOCIAL INTERACTION - STEP 2: Does the patient need extra time in social situations, OR does s/he interact with staff, other patien ts, and family members ONLY in structured environments, OR does s/he require medication for social in teraction? Yes, patient needs extra time SOCIAL INTERACTION - SCORE: 6-HIPOLITO PROBLEM SOLVING: PROBLEM SOLVING - STEP 1: Does the patient need help to solve complex problems such as managing a checking account or confronti ng interpersonal problems? Yes. PROBLEM SOLVING - STEP 2: Does the patient solve basic routine problems half or more of the time? Yes. PROBLEM SOLVING - STEP 3: How often does the patient need help to solve basic routine problems? Less than 10% of the time PROBLEM SOLVING - SCORE: 5-SUP MEMORY: MEMORY - STEP 1: Does the patient need help to remember frequently encountered people, daily routines, and executing r equests? Yes. MEMORY - STEP 2: How often does the patient need help to remember frequently encountered people, daily routines, and e xecuting requests? 10% - 24% of the time MEMORY - SCORE: 4-MIN SIGNATURE PANEL: The following modified sections: Eating - Score, Grooming - Score, Bathing - Score, Dressing - Upper Body - Score, Dressing - Lower Body - Score, Toileting - Score, Bladder Management - Score, Bowel Man agement - Score, Transfers: Bed, Chair, Wheelchair - Score, Transfers: Toilet - Score, Transfers: Laila wer - Score, Transfers: Tub - Score, Locomotion: Walk - Score, Locomotion: Wheelchair - Score, Compre hension - Score, Expression - Score, Social Interaction - Score, Problem Solving - Score, Memory - Sc ore were [electronically] signed by Justin Hough on WedJan 03 2018 14:07:10 GMT-0500 (Central Daylight Time)
--- NOTE | 2018-01-03 16:05 | FAST ---
ENCOUNTER DATE AND TIME: 01/03/2018 08:00 (CDT) NAME JUANA MARQUEZ DATE OF : 1935 DATE OF ADMISSION: 12/27/2017 15:41 (CDT) PHONE: AGE: 82 SSN# [id number] GENDER: Female ENCOUNTER PHYSICIAN: Dr. Arun Joshua M.D. ADMISSION DIAGNOSIS: - Debility 16 - Debility (16) Multiple Falls. EATING: Activity did not occur on this shift EATING - SCORE: 0-UNK GROOMING: Activity did not occur on this shift GROOMING - SCORE: 0-UNK BATHING: Activity did not occur on this shift BATHING - SCORE: 0-UNK DRESSING - UPPER BODY: Activity did not occur on this shift Patient is not dressing in public clothing ARTICLES SCORE Total number of steps: 0 DRESSING - UPPER BODY - SCORE: 0-UNK DRESSING - LOWER BODY: Activity did not occur on this shift Patient is not dressing in public clothing ARTICLES SCORE Total number of steps: 0 DRESSING - LOWER BODY - SCORE: 0-UNK TOILETING: Activity did not occur on this shift TOILETING - SCORE: 0-UNK BLADDER MANAGEMENT: Activity did not occur on this shift BLADDER MANAGEMENT - SCORE: 7-IND BOWEL MANAGEMENT: Activity did not occur on this shift BOWEL MANAGEMENT - SCORE: 7-IND TRANSFERS: BED, CHAIR, WHEELCHAIR: TRANSFERS: BED, CHAIR, WHEELCHAIR - STEP 1: Does the patient require assistance with bed, chair, or wheelchair transfers? Yes. TRANSFERS: BED, CHAIR, WHEELCHAIR - STEP 2: Does the patient require the assistance of a helper? Yes. TRANSFERS: BED, CHAIR, WHEELCHAIR - STEP 3: How much assistance does the patient require from the helper? Only supervision TRANSFERS: BED, CHAIR, WHEELCHAIR - SCORE: 5-SUP TRANSFERS: TOILET: Activity did not occur on this shift TRANSFERS: TOILET - SCORE: 0-UNK TRANSFERS: SHOWER: Activity did not occur on this shift TRANSFERS: SHOWER - SCORE: 0-UNK TRANSFERS: TUB: Activity did not occur on this shift TRANSFERS: TUB - SCORE: 0-UNK LOCOMOTION: WALK: LOCOMOTION: WALK - STEP 1: Does the patient need help to walk 150 feet? Yes. LOCOMOTION: WALK - STEP 2: How much assistance does the patient require to walk a minimum of 150 feet? Only supervision, cuing, or coaxing LOCOMOTION: WALK - SCORE: 5-SUP LOCOMOTION: WHEELCHAIR: Activity did not occur on this shift LOCOMOTION: WHEELCHAIR - SCORE: 0-UNK LOCOMOTION: STAIRS: Activity did not occur on this shift LOCOMOTION: STAIRS - SCORE: 0-UNK COMPREHENSION: COMPREHENSION - SCORE: 0-UNK EXPRESSION EXPRESSION - SCORE: 0-UNK SOCIAL INTERACTION: SOCIAL INTERACTION - SCORE: 0-UNK PROBLEM SOLVING: PROBLEM SOLVING - SCORE: 0-UNK MEMORY: MEMORY - SCORE: 0-UNK SIGNATURE PANEL: The following modified sections: Transfers: Bed, Chair, Wheelchair - Score, Transfers: Toilet - Score , Locomotion: Walk - Score, Locomotion: Wheelchair - Score, Locomotion: Stairs - Score were [electron ically] signed by Alistair Pedraza PT on WedJan 03 2018 16:03:26 GMT-0500 (Central Daylight Time)
--- NOTE | 2018-01-03 16:35 | FAST ---
ENCOUNTER DATE AND TIME: 01/03/2018 08:00 (CDT) NAME JUANA MARQUEZ DATE OF : 1935 DATE OF ADMISSION: 12/27/2017 15:41 (CDT) PHONE: AGE: 82 N# [id number] GENDER: Female ENCOUNTER PHYSICIAN: Dr. Arun Joshua M.D. ADMISSION DIAGNOSIS: - Debility 16 - Debility (16) Multiple Falls. EATING: Activity did not occur on this shift EATING - SCORE: 0-UNK GROOMING: Comb/brush hair Oral care Wash, rinse, and dry face Wash, rinse, and dry hands GROOMING - STEP 1: Does the patient require assistance when grooming? No. GROOMING - SCORE: 7-IND BATHING: Abdomen Buttocks Chest Left arm Left lower leg and foot Left upper leg Perineal area Right arm Right lower leg and foot Right upper leg BATHING - STEP 1: Does the patient require assistance when bathing? Yes. BATHING - STEP 2: Does the patient require the assistance of a helper? Yes. BATHING - STEP 3: How much assistance does the patient require from the helper? Only supervision, cuing, coaxing, instr uctions, encouragement BATHING - SCORE: 5-SUP DRESSING - UPPER BODY: T-shirt/pullover shirt (four steps) ARTICLES SCORE Total number of steps: 4 DRESSING - UPPER BODY - STEP 1: Does the patient require help when dressing above the waist? No. DRESSING - UPPER BODY - SCORE: 7-IND DRESSING - LOWER BODY: Sock - Left foot (one step) Sock - Right foot (one step) Underwear (three steps) Zippered pants (four steps) ARTICLES SCORE Total number of steps: 9 DRESSING - LOWER BODY - STEP 1: Does the patient require help when dressing below the waist? Yes. DRESSING - LOWER BODY - STEP 2: Does the patient require the assistance of a helper? Yes. DRESSING - LOWER BODY - STEP 3: Does the helper touch the patient while dressing? Yes. DRESSING - LOWER BODY - STEP 4: How many of the total steps does the patient complete on his/her own? 8 DRESSING - LOWER BODY - SCORE: 4-MIN TOILETING: Activity did not occur on this shift TOILETING - SCORE: 0-UNK BLADDER MANAGEMENT: Activity did not occur on this shift BLADDER MANAGEMENT - SCORE: 7-IND BOWEL MANAGEMENT: Activity did not occur on this shift BOWEL MANAGEMENT - SCORE: 7-IND TRANSFERS: BED, CHAIR, WHEELCHAIR: Activity did not occur on this shift TRANSFERS: BED, CHAIR, WHEELCHAIR - SCORE: 0-UNK TRANSFERS: TOILET: Activity did not occur on this shift TRANSFERS: TOILET - SCORE: 0-UNK TRANSFERS: SHOWER: TRANSFERS: SHOWER - STEP 1: Does the patient require assistance with shower transfers? Yes. TRANSFERS: SHOWER - STEP 2: Does the patient require the assistance of a helper? Yes. TRANSFERS: SHOWER - STEP 3: How much assistance does the patient require from the helper? Only supervision, cuing, coaxing, or he lp to set out transfer equipment or to lock brakes and/or lift foot rests TRANSFERS: SHOWER - SCORE: 5-SUP TRANSFERS: TUB: Activity did not occur on this shift TRANSFERS: TUB - SCORE: 0-UNK LOCOMOTION: WALK: Activity did not occur on this shift LOCOMOTION: WALK - SCORE: 0-UNK LOCOMOTION: WHEELCHAIR: Activity did not occur on this shift LOCOMOTION: WHEELCHAIR - SCORE: 0-UNK LOCOMOTION: STAIRS: Activity did not occur on this shift LOCOMOTION: STAIRS - SCORE: 0-UNK COMPREHENSION: COMPREHENSION - SCORE: 0-UNK EXPRESSION EXPRESSION - SCORE: 0-UNK SOCIAL INTERACTION: SOCIAL INTERACTION - SCORE: 0-UNK PROBLEM SOLVING: PROBLEM SOLVING - SCORE: 0-UNK MEMORY: MEMORY - SCORE: 0-UNK SIGNATURE PANEL: The following modified sections: Eating - Score, Grooming - Score, Bathing - Score, Dressing - Upper Body - Score, Dressing - Lower Body - Score, Toileting - Score, Transfers: Bed, Chair, Wheelchair - S core, Transfers: Toilet - Score, Transfers: Shower - Score, Transfers: Tub - Score, Comprehension - S core, Expression - Score, Social Interaction - Score, Problem Solving - Score, Memory - Score were [e lectronically] signed by PREM Rosado on WedJan 03 2018 16:35:14 T-0500 ([facility] Time)
[2018-01-03] MEDS: ENOXAPARIN 40 MG/0.4 ML SQ SCH (17:28)
[2018-01-03] MEDS: ATORVASTATIN 40 MG TAB PO SCH (20:31)
[2018-01-03] MEDS: MELATONIN 3 MG TABLET PO PRN (20:31)
[2018-01-04] MEDS: AMOXICILLIN TRIHYDR 250 MG CAP PO SCH ×2 (00:31→08:19)
--- NOTE | 2018-01-04 03:23 | FAST ---
SHIFT START DATE/TIME: 01/03/2018 19:00 (CDT) SHIFT END DATE/TIME: 01/04/2018 07:00 (CDT) NAME JUANA MARQUEZ DATE OF : 1935 DATE OF ADMISSION: 12/27/2017 15:41 (CDT) PHONE: AGE: 82 SSN# [id number] GENDER: Female ENCOUNTER PHYSICIAN: Dr. Arun Joshua M.D. ADMISSION DIAGNOSIS: - Debility 16 - Debility (16) Multiple Falls. EATING: EATING - STEP 1: Does the patient require assistance when eating? Yes. EATING - STEP 2: Does the patient require the assistance of a helper? Yes. EATING - STEP 3: Does the patient perform half or more of the eating tasks? Yes. EATING - STEP 4: Does the patient need only supervision, cuing, coaxing OR help to apply an orthosis OR help to cut fo od, open containers, pour liquids, or butter bread? Yes. EATING - SCORE: 5-SUP GROOMING: Oral care Wash, rinse, and dry face Wash, rinse, and dry hands GROOMING - STEP 1: Does the patient require assistance when grooming? Yes. GROOMING - STEP 2: Does the patient require the assistance of a helper? Yes. GROOMING - STEP 3: How much assistance does the patient require from the helper? Only prior equipment preparation/set up from the helper GROOMING - SCORE: 5-SUP BATHING: Activity did not occur on this shift BATHING - SCORE: 0-UNK DRESSING - UPPER BODY: Patient is not dressing in public clothing ARTICLES SCORE Total number of steps: 0 DRESSING - UPPER BODY - SCORE: 0-UNK DRESSING - LOWER BODY: Patient is not dressing in public clothing ARTICLES SCORE Total number of steps: 0 DRESSING - LOWER BODY - SCORE: 0-UNK TOILETING: TOILETING - STEP 1: Does the patient require assistance with toileting? Yes. TOILETING - STEP 2: Does the patient require the assistance of a helper? Yes. TOILETING - STEP 3: How much assistance does the patient require from the helper? Hands-on assistance from the helper TOILETING - STEP 4: Of the 3 tasks: 1) Adjusting clothing prior to use, 2) Cleansing of perineal area, 3) Adjusting clot khalida after use; How many tasks does the patient perform WITHOUT assistance of the helper? Three tasks with steadying assistance from the helper TOILETING - SCORE: 4-MIN BLADDER MANAGEMENT: BLADDER MANAGEMENT - STEP 1: Does the patient control the bladder completely and intentionally without equipment or devices or med ications, and is always continent? No. BLADDER MANAGEMENT - STEP 2: Does the patient require the assistance of a helper? Yes. BLADDER MANAGEMENT - STEP 3: How much assistance does the patient require from the helper? Patient requires contact assistance fro m the helper BLADDER MANAGEMENT - STEP 4: How much contact assistance does the patient require from the helper? Patient requires minimal assist ance to maintain an external device - by positioning, and the patient performs 75% or more of bladder management tasks, while the helper provides less than 25% of the assistance to position patient on / off bedpan BLADDER MANAGEMENT - SCORE: 4-MIN BLADDER MANAGEMENT - FREQUENCY OF ACCIDENTS: BLADDER MANAGEMENT(FA) - STEP 1: How many accidents has the patient had during the current shift? 3 BOWEL MANAGEMENT: Activity did not occur on this shift BOWEL MANAGEMENT - SCORE: 7-IND TRANSFERS: BED, CHAIR, WHEELCHAIR: TRANSFERS: BED, CHAIR, WHEELCHAIR - STEP 1: Does the patient require assistance with bed, chair, or wheelchair transfers? Yes. TRANSFERS: BED, CHAIR, WHEELCHAIR - STEP 2: Does the patient require the assistance of a helper? Yes. TRANSFERS: BED, CHAIR, WHEELCHAIR - STEP 3: How much assistance does the patient require from the helper? Steadying/guiding assistance TRANSFERS: BED, CHAIR, WHEELCHAIR - SCORE: 4-MIN TRANSFERS: TOILET: TRANSFERS: TOILET - STEP 1: Does the patient require assistance with toilet transfers? Yes. TRANSFERS: TOILET - STEP 2: Does the patient require the assistance of a helper? Yes. TRANSFERS: TOILET - STEP 3: How much assistance does the patient require from the helper? Patient performs half or more of the tr ansferring tasks TRANSFERS: TOILET - STEP 4: Does the patient need only incidental help such as contact guard or steadying during toilet transfer? Yes. TRANSFERS: TOILET - SCORE: 4-MIN TRANSFERS: SHOWER: Activity did not occur on this shift TRANSFERS: SHOWER - SCORE: 0-UNK TRANSFERS: TUB: Activity did not occur on this shift TRANSFERS: TUB - SCORE: 0-UNK LOCOMOTION: WALK: Activity did not occur on this shift LOCOMOTION: WALK - SCORE: 0-UNK LOCOMOTION: WHEELCHAIR: Activity did not occur on this shift LOCOMOTION: WHEELCHAIR - SCORE: 0-UNK COMPREHENSION: COMPREHENSION: TYPE: Both COMPREHENSION - STEP 1: Does the patient require help to understand complex and abstract ideas (such as current events, finan mitra, discharge planning, medical issues, relationships, etc)? Yes. COMPREHENSION - STEP 2: Does the patient require help to understand questions or statements about basic needs or ideas (such as hunger, thirst, sleep, safety, daily schedule, room location, or discomfort) half or more of the t janiya? No. COMPREHENSION - STEP 3: How often does the patient need help to understand directions and conversation about basic needs? 10% - 24% of the time COMPREHENSION - SCORE: 4-MIN EXPRESSION EXPRESSION: TYPE: Both EXPRESSION - STEP 1: Does the patient require help expressing complex and abstract ideas (such as current events, finances , discharge planning, medical issues, relationships, etc)? Yes. EXPRESSION - STEP 2: Does the patient require help to express basic necessities or ideas (such as hunger, thirst, sleep, s afety, daily schedule, room location, or discomfort) half or more of the time? No. EXPRESSION - STEP 3: How often does the patient need help to express directions and conversation about basic needs? Less t boothe 10% of the time EXPRESSION - SCORE: 5-SUP SOCIAL INTERACTION: SOCIAL INTERACTION - STEP 1: Does the patient require a helper to interact with others in social and therapeutic situations? Yes. SOCIAL INTERACTION - STEP 2: Does the patient interact appropriately half or more of the time? Yes. SOCIAL INTERACTION - STEP 3: How often does the patient need help to interact appropriately? Less than 10% of the time SOCIAL INTERACTION - SCORE: 5-SUP PROBLEM SOLVING: PROBLEM SOLVING - STEP 1: Does the patient need help to solve complex problems such as managing a checking account or confronti ng interpersonal problems? Yes. PROBLEM SOLVING - STEP 2: Does the patient solve basic routine problems half or more of the time? No. PROBLEM SOLVING - STEP 3: Does the patient need help to solve problems all the time or is s/he unable to solve problems? No. Pa tient can sometimes solve problems PROBLEM SOLVING - SCORE: 2-MAX MEMORY: MEMORY - STEP 1: Does the patient need help to remember frequently encountered people, daily routines, and executing r equests? Yes. MEMORY - STEP 2: How often does the patient need help to remember frequently encountered people, daily routines, and e xecuting requests? More than 50% of the time MEMORY - STEP 3: Does the patient need help to remember all of the time OR does s/he not effectively recognize and rem ember? No. Patient does not need help all the time MEMORY - SCORE: 2-MAX SIGNATURE PANEL: The following modified sections: Eating - Score, Grooming - Score, Bathing - Score, Dressing - Upper Body - Score, Dressing - Lower Body - Score, Toileting - Score, Bladder Management - Score, Bowel Man agement - Score, Transfers: Bed, Chair, Wheelchair - Score, Transfers: Toilet - Score, Transfers: Laila wer - Score, Transfers: Tub - Score, Locomotion: Walk - Score, Locomotion: Wheelchair - Score, Compre hension - Score, Expression - Score, Social Interaction - Score, Problem Solving - Score, Memory - Sc ore were [electronically] signed by Liza Alvarez [email or web address] on WedJan 04 2018 03:22:22 T-0500 ( Central Daylight Time)
[2018-01-04] MEDS: LEVOTHYROXINE SOD 0.1 MG TAB PO SCH (05:04)
[2018-01-04] MEDS: METOPROLOL XL 25 MG TAB PO SCH ×2 (05:11→17:09)
[2018-01-04] MEDS ORDERED: VITAMIN D 5,000 UNIT CAP PO SCH (08:00)
[2018-01-04] MEDS: PROMOD 30 ML DOSE PO SCH ×2 (08:00→19:45)
[2018-01-04] MEDS: SOLIFENACIN SUCCINATE 10 MG PO SCH (08:17)
[2018-01-04] MEDS: CLOPIDOGREL 75 MG TABLET PO SCH (08:17)
[2018-01-04] MEDS: GABAPENTIN 100 MG CAP PO SCH ×3 (08:17→20:00)
[2018-01-04] MEDS: LIDOCAINE 5% PATCH TOP SCH (08:17)
[2018-01-04] MEDS: SERTRALINE HCL 100 MG TAB PO SCH (08:18)
[2018-01-04] MEDS: LORATADINE 10 MG TAB PO SCH (08:18)
[2018-01-04] MEDS: FE SULF/FA/VIT B COMP & C TAB PO SCH (08:18)
[2018-01-04] MEDS: MINOXIDIL 2.5 MG TAB PO SCH ×2 (08:18→19:53)
[2018-01-04] MEDS: VALSARTAN 80 MG TAB PO SCH (08:20)
--- NOTE | 2018-01-04 11:01 | FAST ---
SHIFT START DATE/TIME: 01/04/2018 07:00 (CDT) SHIFT END DATE/TIME: 01/04/2018 19:00 (CDT) NAME JUANA MARQUEZ DATE OF : 1935 DATE OF ADMISSION: 12/27/2017 15:41 (CDT) PHONE: AGE: 82 SSN# [id number] GENDER: Female ENCOUNTER PHYSICIAN: Dr. Arun Joshua M.D. ADMISSION DIAGNOSIS: - Debility 16 - Debility (16) Multiple Falls. EATING: EATING - STEP 1: Does the patient require assistance when eating? No. EATING - SCORE: 7-IND GROOMING: Comb/brush hair Wash, rinse, and dry face Wash, rinse, and dry hands GROOMING - STEP 1: Does the patient require assistance when grooming? Yes. GROOMING - STEP 2: Does the patient require the assistance of a helper? No. The patient only requires an assistive devic e, OR takes more than reasonable time to groom, OR there is a concern for safety as the patient groom s GROOMING - SCORE: 6-HIPOLITO BATHING: Activity did not occur on this shift BATHING - SCORE: 0-UNK DRESSING - UPPER BODY: T-shirt/pullover shirt (four steps) ARTICLES SCORE Total number of steps: 4 DRESSING - UPPER BODY - STEP 1: Does the patient require help when dressing above the waist? Yes. DRESSING - UPPER BODY - STEP 2: Does the patient require the assistance of a helper? No. Patient only requires an assistive device, s uch as a button hook, velcro, or career agent. OR s/he takes more than reasonable time as s/he dresses the upper body. OR there is a concern for safety when s/he dresses the upper body DRESSING - UPPER BODY - SCORE: 6-HIPOLITO DRESSING - LOWER BODY: Underwear (three steps) Zippered pants (four steps) ARTICLES SCORE Total number of steps: 7 DRESSING - LOWER BODY - STEP 1: Does the patient require help when dressing below the waist? Yes. DRESSING - LOWER BODY - STEP 2: Does the patient require the assistance of a helper? Yes. DRESSING - LOWER BODY - STEP 3: Does the helper touch the patient while dressing? Yes. DRESSING - LOWER BODY - STEP 4: How many of the total steps does the patient complete on his/her own? 6 DRESSING - LOWER BODY - SCORE: 4-MIN TOILETING: TOILETING - STEP 1: Does the patient require assistance with toileting? Yes. TOILETING - STEP 2: Does the patient require the assistance of a helper? Yes. TOILETING - STEP 3: How much assistance does the patient require from the helper? Hands-on assistance from the helper TOILETING - STEP 4: Of the 3 tasks: 1) Adjusting clothing prior to use, 2) Cleansing of perineal area, 3) Adjusting clot khalida after use; How many tasks does the patient perform WITHOUT assistance of the helper? Three tasks with steadying assistance from the helper TOILETING - SCORE: 4-MIN BLADDER MANAGEMENT: BLADDER MANAGEMENT - STEP 1: Does the patient control the bladder completely and intentionally without equipment or devices or med ications, and is always continent? No. BLADDER MANAGEMENT - STEP 2: Does the patient require the assistance of a helper? Yes. BLADDER MANAGEMENT - STEP 3: How much assistance does the patient require from the helper? Only set-up of equipment - such as plac ing it within reach of the patient or emptying a device - to maintain either satisfactory voiding pat tern or managing an external device, such as an absorbent pad, ileal device, or catheter BLADDER MANAGEMENT - SCORE: 5-SUP BLADDER MANAGEMENT - FREQUENCY OF ACCIDENTS: BLADDER MANAGEMENT(FA) - STEP 1: How many accidents has the patient had during the current shift? 1 BOWEL MANAGEMENT: BOWEL MANAGEMENT - STEP 1: Does the patient control bowels completely and intentionally without equipment devices or medications AND is always continent? Yes. BOWEL MANAGEMENT - SCORE: 7-IND BOWEL MANAGEMENT - FREQUENCY OF ACCIDENTS: BOWEL MANAGEMENT(FA) - STEP 1: How many accidents has the patient had during the current shift? 0 TRANSFERS: BED, CHAIR, WHEELCHAIR: TRANSFERS: BED, CHAIR, WHEELCHAIR - STEP 1: Does the patient require assistance with bed, chair, or wheelchair transfers? Yes. TRANSFERS: BED, CHAIR, WHEELCHAIR - STEP 2: Does the patient require the assistance of a helper? Yes. TRANSFERS: BED, CHAIR, WHEELCHAIR - STEP 3: How much assistance does the patient require from the helper? Steadying/guiding assistance TRANSFERS: BED, CHAIR, WHEELCHAIR - SCORE: 4-MIN TRANSFERS: TOILET: TRANSFERS: TOILET - STEP 1: Does the patient require assistance with toilet transfers? Yes. TRANSFERS: TOILET - STEP 2: Does the patient require the assistance of a helper? Yes. TRANSFERS: TOILET - STEP 3: How much assistance does the patient require from the helper? Patient performs half or more of the tr ansferring tasks TRANSFERS: TOILET - STEP 4: Does the patient need only incidental help such as contact guard or steadying during toilet transfer? Yes. TRANSFERS: TOILET - SCORE: 4-MIN TRANSFERS: SHOWER: Activity did not occur on this shift TRANSFERS: SHOWER - SCORE: 0-UNK TRANSFERS: TUB: Activity did not occur on this shift TRANSFERS: TUB - SCORE: 0-UNK LOCOMOTION: WALK: Activity did not occur on this shift LOCOMOTION: WALK - SCORE: 0-UNK LOCOMOTION: WHEELCHAIR: Activity did not occur on this shift LOCOMOTION: WHEELCHAIR - SCORE: 0-UNK COMPREHENSION: COMPREHENSION - SCORE: 0-UNK EXPRESSION EXPRESSION - SCORE: 0-UNK SOCIAL INTERACTION: SOCIAL INTERACTION - SCORE: 0-UNK PROBLEM SOLVING: PROBLEM SOLVING - SCORE: 0-UNK MEMORY: MEMORY - SCORE: 0-UNK SIGNATURE PANEL: The following modified sections: Eating - Score, Grooming - Score, Bathing - Score, Dressing - Upper Body - Score, Dressing - Lower Body - Score, Toileting - Score, Bladder Management - Score, Bowel Man agement - Score, Transfers: Bed, Chair, Wheelchair - Score, Transfers: Toilet - Score, Transfers: Laila wer - Score, Transfers: Tub - Score, Locomotion: Walk - Score, Locomotion: Wheelchair - Score, Compre hension - Score, Expression - Score, Social Interaction - Score, Problem Solving - Score, Memory - Sc ore were [electronically] signed by Renetta Hua CNA on WedJan 04 2018 11:00:12 T-0500 (Centra l Daylight Time)
--- NOTE | 2018-01-04 15:31 | FAST ---
ENCOUNTER DATE AND TIME: 01/04/2018 08:00 (CDT) NAME JUANA MARQUEZ DATE OF : 1935 DATE OF ADMISSION: 12/27/2017 15:41 (CDT) PHONE: AGE: 82 SSN# [id number] GENDER: Female ENCOUNTER PHYSICIAN: Dr. Arun Joshua M.D. ADMISSION DIAGNOSIS: - Debility 16 - Debility (16) Multiple Falls. EATING: Activity did not occur on this shift EATING - SCORE: 0-UNK GROOMING: Activity did not occur on this shift GROOMING - SCORE: 0-UNK BATHING: Activity did not occur on this shift BATHING - SCORE: 0-UNK DRESSING - UPPER BODY: Activity did not occur on this shift Patient is not dressing in public clothing ARTICLES SCORE Total number of steps: 0 DRESSING - UPPER BODY - SCORE: 0-UNK DRESSING - LOWER BODY: Activity did not occur on this shift Patient is not dressing in public clothing ARTICLES SCORE Total number of steps: 0 DRESSING - LOWER BODY - SCORE: 0-UNK TOILETING: Activity did not occur on this shift TOILETING - SCORE: 0-UNK BLADDER MANAGEMENT: Activity did not occur on this shift BLADDER MANAGEMENT - SCORE: 7-IND BOWEL MANAGEMENT: Activity did not occur on this shift BOWEL MANAGEMENT - SCORE: 7-IND TRANSFERS: BED, CHAIR, WHEELCHAIR: TRANSFERS: BED, CHAIR, WHEELCHAIR - STEP 1: Does the patient require assistance with bed, chair, or wheelchair transfers? Yes. TRANSFERS: BED, CHAIR, WHEELCHAIR - STEP 2: Does the patient require the assistance of a helper? Yes. TRANSFERS: BED, CHAIR, WHEELCHAIR - STEP 3: How much assistance does the patient require from the helper? Steadying/guiding assistance TRANSFERS: BED, CHAIR, WHEELCHAIR - SCORE: 4-MIN TRANSFERS: TOILET: Activity did not occur on this shift TRANSFERS: TOILET - SCORE: 0-UNK TRANSFERS: SHOWER: Activity did not occur on this shift TRANSFERS: SHOWER - SCORE: 0-UNK TRANSFERS: TUB: Activity did not occur on this shift TRANSFERS: TUB - SCORE: 0-UNK LOCOMOTION: WALK: LOCOMOTION: WALK - STEP 1: Does the patient need help to walk 150 feet? Yes. LOCOMOTION: WALK - STEP 2: How much assistance does the patient require to walk a minimum of 150 feet? Only supervision, cuing, or coaxing LOCOMOTION: WALK - SCORE: 5-SUP LOCOMOTION: WHEELCHAIR: LOCOMOTION: WHEELCHAIR - STEP 1: Does the patient need help to go 150 feet in a wheelchair? Yes. LOCOMOTION: WHEELCHAIR - STEP 2: How much assistance does the patient need from the helper? Only supervision, cuing, or coaxing LOCOMOTION: WHEELCHAIR - SCORE: 5-SUP LOCOMOTION: STAIRS: LOCOMOTION: STAIRS - STEP 1: Does the patient need help to go up and down 12 to 14 stairs? Yes. LOCOMOTION: STAIRS - STEP 2: How much assistance does the patient need from the helper to go a minimum of 12 to 14 stairs? The pat ient goes less than 12 to 14 stairs - but more than 4 to 6 stairs LOCOMOTION: STAIRS - SCORE: 2-MAX COMPREHENSION: COMPREHENSION - SCORE: 0-UNK EXPRESSION EXPRESSION - SCORE: 0-UNK SOCIAL INTERACTION: SOCIAL INTERACTION - SCORE: 0-UNK PROBLEM SOLVING: PROBLEM SOLVING - SCORE: 0-UNK MEMORY: MEMORY - SCORE: 0-UNK SIGNATURE PANEL: The following modified sections: Transfers: Bed, Chair, Wheelchair - Score, Transfers: Toilet - Score , Locomotion: Walk - Score, Locomotion: Wheelchair - Score, Locomotion: Stairs - Score were [electron sarah] signed by Pete Lira PTA on WedJan 04 2018 15:31:36 GMT-0500 (Central Daylight Time)
--- NOTE | 2018-01-04 18:17 | R.PN ---
ENCOUNTER DATE AND TIME: 01/04/2018 18:10 (CDT) NAME JUANA MARQUEZ DATE OF : 1935 DATE OF ADMISSION: 12/27/2017 15:41 (CDT) Multiple FallsCHIEF COMPLAINT: Debility SUBJECTIVE: Pt denied any Shortness of Breath. Pt denied any depression. MRI of right shoulder shows full thickness tear of right rotator cuff. Ambulated 750' with standby assistance using a rolling walker. Up and down 5 steps with contact guar d assistance. Self-propelled wheelchair 250' with standby assistance. VITAL SIGNS Temperature: 98.4 F SBP/DBP: 157/53 Pulse: 55 Resp: 14 Therapeutic exercises done with minimum assistance. MEDICATION ALLERGIES: Meperidine HCl Nitrofurantoin Macrocrystal ENVIRONMENTAL ALLERGIES: None Known - Substance Allergies None Known - Other Allergies None Known NURSING: - Shower allowing shower ACTIVITIES OOB only with supervision THERAPIES: - Occupational Therapy Evaluate and Treat. - Physical Therapy Evaluate and Treat. PHYSICAL EXAM - Gen Alert and awake Lying in bed No apparent distress Oriented to: person, time, and place - Skin No skin breakdown. Normacephalic - Eyes No abnormalities - ENMT No abnormalities - Neck No abnormalities - CVS RRR - Chest No abnormalities - Resp Clear to auscultation - Abd Soft - GI Non distended Deferred - No abnormalities - Ext Mild bilateral lower extremity weakness. - MSK 4+/5 weakness in both lower extremities. - Neuro 4/5 strength bilaterally lower extremities. - Psych No abnormalities ASSESSMENT: Pt. is a 82 yo Right-handed white female.On 12/20/2017 she was admitted to [facility] with diagnosis Multiple Falls.Her impairment category is Debility 16 - Debility (16).Pre-morb idly, Pt. was independent/mod-I in Communication, Social Cognition, Self-Care, Locomotion, Sphincter Control, and Transfers Control; and she had good Sphincter Control.Currently, she has deficits of Bal ance, Locomotion, Endurance, Safety Awareness, Transfers Control, and Self-Care.Pt. is now referred t [facility] for acute in-patient rehabilitation in order to maximize patient' s functional independence in activities of daily living, strength, ROM, and mobility.- Rehab Goal Patient has realistic goal of being discharged at assistance level 5-sup to reside at Home with Fami ly/Relatives. MDM/PLAN: - Physical Therapy Gait dysfunction - to improve, our physical therapists will perform initial evaluation of pt's statu s upon admission and devise an individualized program for Gait Training, and Wheel Chair mobility Inability to transfer - to improve, our physical therapists will perform initial evaluation of pt's status upon admission and devise an individualized program for Bed mobility Need for home safety evaluation - to improve, our physical therapists will perform initial evaluatio n of pt's status upon admission and devise an individualized program for Home Evaluation Need in caregiver upon discharge - to improve, our physical therapists will perform initial evaluati on of pt's status upon admission and devise an individualized program for Caregiver Training New precaution - to improve, our physical therapists will perform initial evaluation of pt's status upon admission and devise an individualized program for Patient precaution education Poor balance - to improve, our physical therapists will perform initial evaluation of pt's status up on admission and devise an individualized program for Balance Training Poor endurance - to improve, our physical therapists will perform initial evaluation of pt's status upon admission and devise an individualized program for Endurance Training Weakness - to improve, our physical therapists will perform initial evaluation of pt's status upon a dmission and devise an individualized program for Aquatic Therapy, Neuromuscular Reeducation, and Str engthening Achieving independence - to improve, our physical therapists will perform initial evaluation of pt's status upon admission and devise an individualized program for Community Reintegration Activities - Occupational Therapy ADL deficits - to improve, our occupation therapists will perform initial evaluation of pt's status upon admission and devise an individualized program for Bathing, Bed mobility, Community Reintegratio n, Cooking, Dressing, Eating, Fine Motor Skills, Grooming, Homemaking, Kitchen Mobility, Laundry, Pat ient Education, Safety Awareness, Splinting - Positioning, Transfers(Toilet, Tub, Shower), and Wheel Chair Management Need for critical care paramedic - to improve, our occupation therapists will perform initial evaluation of pt's status upon admission and devise an individualized program for Caregiver Training Weakness - to improve, our occupation therapists will perform initial evaluation of pt's status upon admission and devise an individualized program for Aquatic Therapy, Balance, Endurance, UE ROM, and UE strengthening - Diet Type Continue Regular - Diet - Liquid Texture Continue Regular - Tube Feed Continue N/A - Diet - Solid Texture Continue Regular - Shower allowing shower FUNCTIONAL STATUS: UPDATED AT WEEKLY TEAM CONFERENCE - Bladder Same accident frequency: 7-Ind - No accidents in the past 7 days - Bowel Same accident frequency: 7-Ind - No accidents in the past 7 days - Walking Same score based on distance walked: 3(>=150ft) - Wheelchair Same score based on distance traveled: 0(N/A) FUNCTIONAL STATUS: - Self-Care A. Eating Ind B. Grooming Ind C. Bathing sup D. Dressing - Upper sup E. Dressing - Lower sup F. Toileting sup - Sphincter Control G: Bladder control Ind H: Bowel control Ind - Transfers Control I. Bed/Chair/Wheelchair sup J. Toilet sup K. Tub/Shower ADNO - Locomotion L. Walk/Wheelchair (B) sup M. Stairs ADNO - Communication N. Comprehension (B) Varghese O. Expression (B) Varghese - Social Cognition P. Social Interaction Varghese Q. Problem Solving Varghese R. Memory Varghese - Endurance Fair - Balance Fair - Safety Awareness Fair CURRENT FUNC. DEFICITS: Balance, Locomotion, Endurance, Safety Awareness, Transfers Control, and Self-Care SIGNATURE PANEL: (CDT)
[2018-01-04] MEDS: APIXABAN 2.5 MG TABLET PO SCH (19:52)
[2018-01-04] MEDS: ACETAMINOPHEN 500 MG TAB PO PRN (19:52)
[2018-01-04] MEDS: MELATONIN 3 MG TABLET PO PRN (19:52)
[2018-01-04] MEDS: ATORVASTATIN 40 MG TAB PO SCH (20:00)
--- NOTE | 2018-01-05 03:04 | FAST ---
SHIFT START DATE/TIME: 01/04/2018 19:00 (CDT) SHIFT END DATE/TIME: 01/05/2018 07:00 (CDT) NAME JUANA MARQUEZ DATE OF : 1935 DATE OF ADMISSION: 12/27/2017 15:41 (CDT) PHONE: AGE: 82 SSN# [id number] GENDER: Female ENCOUNTER PHYSICIAN: Dr. Arun Joshua M.D. ADMISSION DIAGNOSIS: - Debility 16 - Debility (16) Multiple Falls. EATING: EATING - STEP 1: Does the patient require assistance when eating? Yes. EATING - STEP 2: Does the patient require the assistance of a helper? Yes. EATING - STEP 3: Does the patient perform half or more of the eating tasks? Yes. EATING - STEP 4: Does the patient need only supervision, cuing, coaxing OR help to apply an orthosis OR help to cut fo od, open containers, pour liquids, or butter bread? Yes. EATING - SCORE: 5-SUP GROOMING: Activity did not occur on this shift GROOMING - SCORE: 0-UNK BATHING: Activity did not occur on this shift BATHING - SCORE: 0-UNK DRESSING - UPPER BODY: Patient is not dressing in public clothing ARTICLES SCORE Total number of steps: 0 DRESSING - UPPER BODY - SCORE: 0-UNK DRESSING - LOWER BODY: Patient is not dressing in public clothing ARTICLES SCORE Total number of steps: 0 DRESSING - LOWER BODY - SCORE: 0-UNK TOILETING: TOILETING - STEP 1: Does the patient require assistance with toileting? Yes. TOILETING - STEP 2: Does the patient require the assistance of a helper? Yes. TOILETING - STEP 3: How much assistance does the patient require from the helper? Hands-on assistance from the helper TOILETING - STEP 4: Of the 3 tasks: 1) Adjusting clothing prior to use, 2) Cleansing of perineal area, 3) Adjusting clot khalida after use; How many tasks does the patient perform WITHOUT assistance of the helper? Three tasks with steadying assistance from the helper TOILETING - SCORE: 4-MIN BLADDER MANAGEMENT: BLADDER MANAGEMENT - STEP 1: Does the patient control the bladder completely and intentionally without equipment or devices or med ications, and is always continent? No. BLADDER MANAGEMENT - STEP 2: Does the patient require the assistance of a helper? Yes. BLADDER MANAGEMENT - STEP 3: How much assistance does the patient require from the helper? Patient requires contact assistance fro m the helper BLADDER MANAGEMENT - STEP 4: How much contact assistance does the patient require from the helper? Patient requires minimal assist ance to maintain an external device - by positioning, and the patient performs 75% or more of bladder management tasks, while the helper provides less than 25% of the assistance to position patient on / off bedpan BLADDER MANAGEMENT - SCORE: 4-MIN BLADDER MANAGEMENT - FREQUENCY OF ACCIDENTS: BLADDER MANAGEMENT(FA) - STEP 1: How many accidents has the patient had during the current shift? 3 BOWEL MANAGEMENT: Activity did not occur on this shift BOWEL MANAGEMENT - SCORE: 7-IND TRANSFERS: BED, CHAIR, WHEELCHAIR: TRANSFERS: BED, CHAIR, WHEELCHAIR - STEP 1: Does the patient require assistance with bed, chair, or wheelchair transfers? Yes. TRANSFERS: BED, CHAIR, WHEELCHAIR - STEP 2: Does the patient require the assistance of a helper? Yes. TRANSFERS: BED, CHAIR, WHEELCHAIR - STEP 3: How much assistance does the patient require from the helper? Steadying/guiding assistance TRANSFERS: BED, CHAIR, WHEELCHAIR - SCORE: 4-MIN TRANSFERS: TOILET: TRANSFERS: TOILET - STEP 1: Does the patient require assistance with toilet transfers? Yes. TRANSFERS: TOILET - STEP 2: Does the patient require the assistance of a helper? Yes. TRANSFERS: TOILET - STEP 3: How much assistance does the patient require from the helper? Patient performs half or more of the tr ansferring tasks TRANSFERS: TOILET - STEP 4: Does the patient need only incidental help such as contact guard or steadying during toilet transfer? Yes. TRANSFERS: TOILET - SCORE: 4-MIN TRANSFERS: SHOWER: Activity did not occur on this shift TRANSFERS: SHOWER - SCORE: 0-UNK TRANSFERS: TUB: Activity did not occur on this shift TRANSFERS: TUB - SCORE: 0-UNK LOCOMOTION: WALK: Activity did not occur on this shift LOCOMOTION: WALK - SCORE: 0-UNK LOCOMOTION: WHEELCHAIR: Activity did not occur on this shift LOCOMOTION: WHEELCHAIR - SCORE: 0-UNK COMPREHENSION: COMPREHENSION: TYPE: Both COMPREHENSION - STEP 1: Does the patient require help to understand complex and abstract ideas (such as current events, finan mitra, discharge planning, medical issues, relationships, etc)? Yes. COMPREHENSION - STEP 2: Does the patient require help to understand questions or statements about basic needs or ideas (such as hunger, thirst, sleep, safety, daily schedule, room location, or discomfort) half or more of the t janiya? No. COMPREHENSION - STEP 3: How often does the patient need help to understand directions and conversation about basic needs? Les s than 10% of the time COMPREHENSION - SCORE: 5-SUP EXPRESSION EXPRESSION: TYPE: Both EXPRESSION - STEP 1: Does the patient require help expressing complex and abstract ideas (such as current events, finances , discharge planning, medical issues, relationships, etc)? Yes. EXPRESSION - STEP 2: Does the patient require help to express basic necessities or ideas (such as hunger, thirst, sleep, s afety, daily schedule, room location, or discomfort) half or more of the time? No. EXPRESSION - STEP 3: How often does the patient need help to express directions and conversation about basic needs? Less t boothe 10% of the time EXPRESSION - SCORE: 5-SUP SOCIAL INTERACTION: SOCIAL INTERACTION - STEP 1: Does the patient require a helper to interact with others in social and therapeutic situations? No. SOCIAL INTERACTION - STEP 2: Does the patient need extra time in social situations, OR does s/he interact with staff, other patien ts, and family members ONLY in structured environments, OR does s/he require medication for social in teraction? Yes, patient needs extra time SOCIAL INTERACTION - SCORE: 6-HIPOLITO PROBLEM SOLVING: Patient requires bed/chair alarms due to attempts to get up unassisted when helper is needed. PROBLEM SOLVING - STEP 1: How often do the bed/chair alarms go off? Sometimes - the alarms go off about half the time PROBLEM SOLVING - SCORE: 3-MOD MEMORY: MEMORY - STEP 1: How often do the bed/chair alarms go off? Sometimes - the alarms go off about half the time MEMORY - SCORE: 3-MOD SIGNATURE PANEL: The following modified sections: Eating - Score, Grooming - Score, Bathing - Score, Dressing - Upper Body - Score, Dressing - Lower Body - Score, Toileting - Score, Bladder Management - Score, Bowel Man agement - Score, Transfers: Bed, Chair, Wheelchair - Score, Transfers: Toilet - Score, Transfers: Laila wer - Score, Transfers: Tub - Score, Locomotion: Walk - Score, Locomotion: Wheelchair - Score, Compre hension - Score, Expression - Score, Social Interaction - Score, Problem Solving - Score, Memory - Sc ore were [electronically] signed by Liza Alvarez C.N.A. on WedJan 05 2018 03:03:27 GMT-0500 ( Central Daylight Time)
[2018-01-05] MEDS: LEVOTHYROXINE SOD 0.1 MG TAB PO SCH (05:08)
[2018-01-05] MEDS: METOPROLOL XL 25 MG TAB PO SCH ×2 (05:08→17:43)
[2018-01-05] MEDS: PROMOD 30 ML DOSE PO SCH ×2 (08:00→20:24)
[2018-01-05] MEDS: MINOXIDIL 2.5 MG TAB PO SCH ×2 (09:45→20:25)
[2018-01-05] MEDS: GABAPENTIN 100 MG CAP PO SCH ×3 (09:45→20:25)
[2018-01-05] MEDS: CLOPIDOGREL 75 MG TABLET PO SCH (09:45)
[2018-01-05] MEDS: SERTRALINE HCL 100 MG TAB PO SCH (09:45)
[2018-01-05] MEDS: LIDOCAINE 5% PATCH TOP SCH (09:45)
[2018-01-05] MEDS: SOLIFENACIN SUCCINATE 10 MG PO SCH (09:45)
[2018-01-05] MEDS: FE SULF/FA/VIT B COMP & C TAB PO SCH (09:45)
[2018-01-05] MEDS: VALSARTAN 80 MG TAB PO SCH (09:45)
[2018-01-05] MEDS: APIXABAN 2.5 MG TABLET PO SCH ×2 (09:45→20:25)
[2018-01-05] MEDS: LORATADINE 10 MG TAB PO SCH (09:45)
--- NOTE | 2018-01-05 15:01 | FAST ---
SHIFT START DATE/TIME: 01/05/2018 07:00 (CDT) SHIFT END DATE/TIME: 01/05/2018 19:00 (CDT) NAME JUANA MARQUEZ DATE OF : 1935 DATE OF ADMISSION: 12/27/2017 15:41 (CDT) PHONE: AGE: 82 SSN# [id number] GENDER: Female ENCOUNTER PHYSICIAN: Dr. Arun Joshua M.D. ADMISSION DIAGNOSIS: - Debility 16 - Debility (16) Multiple Falls. EATING: EATING - STEP 1: Does the patient require assistance when eating? Yes. EATING - STEP 2: Does the patient require the assistance of a helper? Yes. EATING - STEP 3: Does the patient perform half or more of the eating tasks? Yes. EATING - STEP 4: Does the patient need only supervision, cuing, coaxing OR help to apply an orthosis OR help to cut fo od, open containers, pour liquids, or butter bread? Yes. EATING - SCORE: 5-SUP GROOMING: Comb/brush hair Wash, rinse, and dry face Wash, rinse, and dry hands GROOMING - STEP 1: Does the patient require assistance when grooming? Yes. GROOMING - STEP 2: Does the patient require the assistance of a helper? No. The patient only requires an assistive devic e, OR takes more than reasonable time to groom, OR there is a concern for safety as the patient groom s GROOMING - SCORE: 6-HIPOLITO BATHING: Activity did not occur on this shift BATHING - SCORE: 0-UNK DRESSING - UPPER BODY: T-shirt/pullover shirt (four steps) ARTICLES SCORE Total number of steps: 4 DRESSING - UPPER BODY - STEP 1: Does the patient require help when dressing above the waist? Yes. DRESSING - UPPER BODY - STEP 2: Does the patient require the assistance of a helper? No. Patient only requires an assistive device, s uch as a button hook, velcro, or cyber operator. OR s/he takes more than reasonable time as s/he dresses the upper body. OR there is a concern for safety when s/he dresses the upper body DRESSING - UPPER BODY - SCORE: 6-HIPOLITO DRESSING - LOWER BODY: Elastic waist pants (three steps) Sock - Left foot (one step) Sock - Right foot (one step) Underwear (three steps) ARTICLES SCORE Total number of steps: 8 DRESSING - LOWER BODY - STEP 1: Does the patient require help when dressing below the waist? Yes. DRESSING - LOWER BODY - STEP 2: Does the patient require the assistance of a helper? Yes. DRESSING - LOWER BODY - STEP 3: Does the helper touch the patient while dressing? Yes. DRESSING - LOWER BODY - STEP 4: How many of the total steps does the patient complete on his/her own? 8 DRESSING - LOWER BODY - SCORE: 4-MIN TOILETING: TOILETING - STEP 1: Does the patient require assistance with toileting? Yes. TOILETING - STEP 2: Does the patient require the assistance of a helper? Yes. TOILETING - STEP 3: How much assistance does the patient require from the helper? Only supervision TOILETING - SCORE: 5-SUP BLADDER MANAGEMENT: [place] removes incontinent device (Depends, pull ups, etc.); cleans the patient after accident / inco ntinent episode; and, applies new incontinent device. BLADDER MANAGEMENT - SCORE: 1-DEP BLADDER MANAGEMENT - FREQUENCY OF ACCIDENTS: BLADDER MANAGEMENT(FA) - STEP 1: How many accidents has the patient had during the current shift? 1 BOWEL MANAGEMENT: BOWEL MANAGEMENT - STEP 1: Does the patient control bowels completely and intentionally without equipment devices or medications AND is always continent? No. BOWEL MANAGEMENT - STEP 2: Does the patient require the assistance of a helper? No, patient requires extra time BOWEL MANAGEMENT - SCORE: 6-HIPOLITO BOWEL MANAGEMENT - FREQUENCY OF ACCIDENTS: BOWEL MANAGEMENT(FA) - STEP 1: How many accidents has the patient had during the current shift? 0 TRANSFERS: BED, CHAIR, WHEELCHAIR: TRANSFERS: BED, CHAIR, WHEELCHAIR - STEP 1: Does the patient require assistance with bed, chair, or wheelchair transfers? Yes. TRANSFERS: BED, CHAIR, WHEELCHAIR - STEP 2: Does the patient require the assistance of a helper? Yes. TRANSFERS: BED, CHAIR, WHEELCHAIR - STEP 3: How much assistance does the patient require from the helper? Steadying/guiding assistance TRANSFERS: BED, CHAIR, WHEELCHAIR - SCORE: 4-MIN TRANSFERS: TOILET: TRANSFERS: TOILET - STEP 1: Does the patient require assistance with toilet transfers? Yes. TRANSFERS: TOILET - STEP 2: Does the patient require the assistance of a helper? Yes. TRANSFERS: TOILET - STEP 3: How much assistance does the patient require from the helper? Patient performs half or more of the tr ansferring tasks TRANSFERS: TOILET - STEP 4: Does the patient need only incidental help such as contact guard or steadying during toilet transfer? Yes. TRANSFERS: TOILET - SCORE: 4-MIN TRANSFERS: SHOWER: Activity did not occur on this shift TRANSFERS: SHOWER - SCORE: 0-UNK TRANSFERS: TUB: Activity did not occur on this shift TRANSFERS: TUB - SCORE: 0-UNK LOCOMOTION: WALK: Activity did not occur on this shift LOCOMOTION: WALK - SCORE: 0-UNK LOCOMOTION: WHEELCHAIR: LOCOMOTION: WHEELCHAIR - STEP 1: Does the patient need help to go 150 feet in a wheelchair? Yes. LOCOMOTION: WHEELCHAIR - STEP 2: How much assistance does the patient need from the helper? Only supervision, cuing, or coaxing LOCOMOTION: WHEELCHAIR - SCORE: 5-SUP COMPREHENSION: COMPREHENSION: TYPE: Both COMPREHENSION - STEP 1: Does the patient require help to understand complex and abstract ideas (such as current events, finan mitra, discharge planning, medical issues, relationships, etc)? No. COMPREHENSION - STEP 2: Does the patient need extra time, require an assistive device (such as glasses for visual comprehensi on or a hearing aid for auditory comprehension) or does s/he have mild difficulty understanding compl ex and abstract information? Yes. COMPREHENSION - SCORE: 6-HIPOLITO EXPRESSION EXPRESSION: TYPE: Both EXPRESSION - STEP 1: Does the patient require help expressing complex and abstract ideas (such as current events, finances , discharge planning, medical issues, relationships, etc)? No. EXPRESSION - STEP 2: Does the patient need extra time, require an assistive device (such as augmentive communication syste m or a communication board), OR does s/he have mild difficulty expressing complex and abstract ideas (including mild dysarthria or mild word-find problems)? Yes. EXPRESSION - SCORE: 6-HIPOLITO SOCIAL INTERACTION: SOCIAL INTERACTION - STEP 1: Does the patient require a helper to interact with others in social and therapeutic situations? No. SOCIAL INTERACTION - STEP 2: Does the patient need extra time in social situations, OR does s/he interact with staff, other patien ts, and family members ONLY in structured environments, OR does s/he require medication for social in teraction? Yes, patient needs extra time SOCIAL INTERACTION - SCORE: 6-HIPOLITO PROBLEM SOLVING: PROBLEM SOLVING - STEP 1: Does the patient need help to solve complex problems such as managing a checking account or confronti ng interpersonal problems? Yes. PROBLEM SOLVING - STEP 2: Does the patient solve basic routine problems half or more of the time? Yes. PROBLEM SOLVING - STEP 3: How often does the patient need help to solve basic routine problems? Less than 10% of the time PROBLEM SOLVING - SCORE: 5-SUP MEMORY: MEMORY - STEP 1: Does the patient need help to remember frequently encountered people, daily routines, and executing r equests? No. MEMORY - STEP 2: Does the patient have slight difficulty recognizing frequently encountered people, daily routines, or executing requests without the need for repetition or using self-initiated or environmental cues to remember? Yes. MEMORY - SCORE: 6-HIPOLITO SIGNATURE PANEL: The following modified sections: Eating - Score, Grooming - Score, Bathing - Score, Dressing - Upper Body - Score, Dressing - Lower Body - Score, Toileting - Score, Bladder Management - Score, Bowel Man agement - Score, Transfers: Bed, Chair, Wheelchair - Score, Transfers: Toilet - Score, Transfers: Laila wer - Score, Transfers: Tub - Score, Locomotion: Walk - Score, Locomotion: Wheelchair - Score, Compre hension - Score, Expression - Score, Social Interaction - Score, Problem Solving - Score, Memory - Sc ore were [electronically] signed by La Jackson C.N.A. on WedJan 05 2018 15:00:37 T-0500 (Centra l Daylight Time)
--- NOTE | 2018-01-05 16:30 | FAST ---
ENCOUNTER DATE AND TIME: 01/05/2018 08:00 (CDT) NAME JUANA MARQUEZ DATE OF : 1935 DATE OF ADMISSION: 12/27/2017 15:41 (CDT) PHONE: AGE: 82 SSN# [id number] GENDER: Female ENCOUNTER PHYSICIAN: Dr. Arun Joshua M.D. ADMISSION DIAGNOSIS: - Debility 16 - Debility (16) Multiple Falls. EATING: Activity did not occur on this shift EATING - SCORE: 0-UNK GROOMING: Activity did not occur on this shift GROOMING - SCORE: 0-UNK BATHING: Activity did not occur on this shift BATHING - SCORE: 0-UNK DRESSING - UPPER BODY: Activity did not occur on this shift Patient is not dressing in public clothing ARTICLES SCORE Total number of steps: 0 DRESSING - UPPER BODY - SCORE: 0-UNK DRESSING - LOWER BODY: Activity did not occur on this shift Patient is not dressing in public clothing ARTICLES SCORE Total number of steps: 0 DRESSING - LOWER BODY - SCORE: 0-UNK TOILETING: Activity did not occur on this shift TOILETING - SCORE: 0-UNK BLADDER MANAGEMENT: Activity did not occur on this shift BLADDER MANAGEMENT - SCORE: 7-IND BOWEL MANAGEMENT: Activity did not occur on this shift BOWEL MANAGEMENT - SCORE: 7-IND TRANSFERS: BED, CHAIR, WHEELCHAIR: TRANSFERS: BED, CHAIR, WHEELCHAIR - STEP 1: Does the patient require assistance with bed, chair, or wheelchair transfers? Yes. TRANSFERS: BED, CHAIR, WHEELCHAIR - STEP 2: Does the patient require the assistance of a helper? Yes. TRANSFERS: BED, CHAIR, WHEELCHAIR - STEP 3: How much assistance does the patient require from the helper? Only supervision TRANSFERS: BED, CHAIR, WHEELCHAIR - SCORE: 5-SUP TRANSFERS: TOILET: Activity did not occur on this shift TRANSFERS: TOILET - SCORE: 0-UNK TRANSFERS: SHOWER: Activity did not occur on this shift TRANSFERS: SHOWER - SCORE: 0-UNK TRANSFERS: TUB: Activity did not occur on this shift TRANSFERS: TUB - SCORE: 0-UNK LOCOMOTION: WALK: LOCOMOTION: WALK - STEP 1: Does the patient need help to walk 150 feet? Yes. LOCOMOTION: WALK - STEP 2: How much assistance does the patient require to walk a minimum of 150 feet? Only supervision, cuing, or coaxing LOCOMOTION: WALK - SCORE: 5-SUP LOCOMOTION: WHEELCHAIR: Activity did not occur on this shift LOCOMOTION: WHEELCHAIR - SCORE: 0-UNK LOCOMOTION: STAIRS: LOCOMOTION: STAIRS - STEP 1: Does the patient need help to go up and down 12 to 14 stairs? Yes. LOCOMOTION: STAIRS - STEP 2: How much assistance does the patient need from the helper to go a minimum of 12 to 14 stairs? Only [place] pervision, cuing, or coaxing LOCOMOTION: STAIRS - SCORE: 5-SUP COMPREHENSION: COMPREHENSION - SCORE: 0-UNK EXPRESSION EXPRESSION - SCORE: 0-UNK SOCIAL INTERACTION: SOCIAL INTERACTION - SCORE: 0-UNK PROBLEM SOLVING: PROBLEM SOLVING - SCORE: 0-UNK MEMORY: MEMORY - SCORE: 0-UNK SIGNATURE PANEL: The following modified sections: Transfers: Bed, Chair, Wheelchair - Score, Transfers: Toilet - Score , Locomotion: Walk - Score, Locomotion: Wheelchair - Score, Locomotion: Stairs - Score were [electron sarah] signed by Alistair Pedraza PT on WedJan 05 2018 16:29:45 T-0500 (Central Daylight Time)
--- NOTE | 2018-01-05 17:37 | R.PN ---
ENCOUNTER DATE AND TIME: 01/05/2018 17:35 (CDT) NAME JUANA MARQUEZ DATE OF : 1935 DATE OF ADMISSION: 12/27/2017 15:41 (CDT) Multiple FallsCHIEF COMPLAINT: Debility SUBJECTIVE: Pt denied any Shortness of Breath. Pt denied any depression. MRI of right shoulder shows full thickness tear of right rotator cuff. Ambulated 500' with standby assistance using a rolling walker. Up and down 20 steps with standby ass istance. Self-propelled wheelchair 250' with standby assistance. VITAL SIGNS Temperature: 98.4 F SBP/DBP: 140/63 Pulse: 60 Resp: 16 MEDICATION ALLERGIES: Meperidine HCl Nitrofurantoin Macrocrystal ENVIRONMENTAL ALLERGIES: None Known - Substance Allergies None Known - Other Allergies None Known NURSING: - Shower allowing shower ACTIVITIES OOB only with supervision THERAPIES: - Occupational Therapy Evaluate and Treat. - Physical Therapy Evaluate and Treat. PHYSICAL EXAM - Gen Alert and awake Lying in bed No apparent distress Oriented to: person, time, and place - Skin No skin breakdown. Normacephalic - Eyes No abnormalities - ENMT No abnormalities - Neck No abnormalities - CVS RRR - Chest No abnormalities - Resp Clear to auscultation - Abd Soft - GI Non distended Deferred - No abnormalities - Ext Mild bilateral lower extremity weakness. - MSK 4+/5 weakness in both lower extremities. - Neuro 4/5 strength bilaterally lower extremities. - Psych No abnormalities ASSESSMENT: Pt. is a 82 yo Right-handed white female.On 12/20/2017 she was admitted to [facility] with diagnosis Multiple Falls.Her impairment category is Debility 16 - Debility (16).Pre-morb idly, Pt. was independent/mod-I in Communication, Social Cognition, Self-Care, Locomotion, Sphincter Control, and Transfers Control; and she had good Sphincter Control.Currently, she has deficits of Bal ance, Locomotion, Endurance, Safety Awareness, Transfers Control, and Self-Care.Pt. is now referred t [facility] for acute in-patient rehabilitation in order to maximize patient' s functional independence in activities of daily living, strength, ROM, and mobility.- Rehab Goal Patient has realistic goal of being discharged at assistance level 5-sup to reside at Home with Fami ly/Relatives. MDM/PLAN: - Physical Therapy Gait dysfunction - to improve, our physical therapists will perform initial evaluation of pt's statu s upon admission and devise an individualized program for Gait Training, and Wheel Chair mobility Inability to transfer - to improve, our physical therapists will perform initial evaluation of pt's status upon admission and devise an individualized program for Bed mobility Need for home safety evaluation - to improve, our physical therapists will perform initial evaluatio n of pt's status upon admission and devise an individualized program for Home Evaluation Need in caregiver upon discharge - to improve, our physical therapists will perform initial evaluati on of pt's status upon admission and devise an individualized program for Caregiver Training New precaution - to improve, our physical therapists will perform initial evaluation of pt's status upon admission and devise an individualized program for Patient precaution education Poor balance - to improve, our physical therapists will perform initial evaluation of pt's status up on admission and devise an individualized program for Balance Training Poor endurance - to improve, our physical therapists will perform initial evaluation of pt's status upon admission and devise an individualized program for Endurance Training Weakness - to improve, our physical therapists will perform initial evaluation of pt's status upon a dmission and devise an individualized program for Aquatic Therapy, Neuromuscular Reeducation, and Str engthening Achieving independence - to improve, our physical therapists will perform initial evaluation of pt's status upon admission and devise an individualized program for Community Reintegration Activities - Occupational Therapy ADL deficits - to improve, our occupation therapists will perform initial evaluation of pt's status upon admission and devise an individualized program for Bathing, Bed mobility, Community Reintegratio n, Cooking, Dressing, Eating, Fine Motor Skills, Grooming, Homemaking, Kitchen Mobility, Laundry, Pat ient Education, Safety Awareness, Splinting - Positioning, Transfers(Toilet, Tub, Shower), and Wheel Chair Management Need for manager of care - to improve, our occupation therapists will perform initial evaluation of pt's status upon admission and devise an individualized program for Caregiver Training Weakness - to improve, our occupation therapists will perform initial evaluation of pt's status upon admission and devise an individualized program for Aquatic Therapy, Balance, Endurance, UE ROM, and UE strengthening - Diet Type Continue Regular - Diet - Liquid Texture Continue Regular - Tube Feed Continue N/A - Diet - Solid Texture Continue Regular - Shower allowing shower FUNCTIONAL STATUS: UPDATED AT WEEKLY TEAM CONFERENCE - Bladder Same accident frequency: 7-Ind - No accidents in the past 7 days - Bowel Same accident frequency: 7-Ind - No accidents in the past 7 days - Walking Same score based on distance walked: 3(>=150ft) - Wheelchair Same score based on distance traveled: 0(N/A) FUNCTIONAL STATUS: - Self-Care A. Eating Ind B. Grooming Ind C. Bathing sup D. Dressing - Upper sup E. Dressing - Lower sup F. Toileting sup - Sphincter Control G: Bladder control Ind H: Bowel control Ind - Transfers Control I. Bed/Chair/Wheelchair sup J. Toilet sup K. Tub/Shower ADNO - Locomotion L. Walk/Wheelchair (B) sup M. Stairs ADNO - Communication N. Comprehension (B) Varghese O. Expression (B) Varghese - Social Cognition P. Social Interaction Varghese Q. Problem Solving Varghese R. Memory Varghese - Endurance Fair - Balance Fair - Safety Awareness Fair CURRENT FUNC. DEFICITS: Balance, Locomotion, Endurance, Safety Awareness, Transfers Control, and Self-Care SIGNATURE PANEL: (CDT)
[2018-01-05] MEDS: MELATONIN 3 MG TABLET PO PRN (20:25)
[2018-01-05] MEDS: ATORVASTATIN 40 MG TAB PO SCH (20:25)
--- NOTE | 2018-01-06 03:19 | FAST ---
SHIFT START DATE/TIME: 01/05/2018 19:00 (CDT) SHIFT END DATE/TIME: 01/06/2018 07:00 (CDT) NAME JUANA MARQUEZ DATE OF : 1935 DATE OF ADMISSION: 12/27/2017 15:41 (CDT) PHONE: AGE: 82 SSN# [id number] GENDER: Female ENCOUNTER PHYSICIAN: Dr. Arun Joshua M.D. ADMISSION DIAGNOSIS: - Debility 16 - Debility (16) Multiple Falls. EATING: Activity did not occur on this shift EATING - SCORE: 0-UNK GROOMING: Wash, rinse, and dry hands GROOMING - STEP 1: Does the patient require assistance when grooming? Yes. GROOMING - STEP 2: Does the patient require the assistance of a helper? Yes. GROOMING - STEP 3: How much assistance does the patient require from the helper? Cuing, coaxing, instructions, or encour agement for completion of grooming GROOMING - SCORE: 5-SUP BATHING: Activity did not occur on this shift BATHING - SCORE: 0-UNK DRESSING - UPPER BODY: Patient is not dressing in public clothing ARTICLES SCORE Total number of steps: 0 DRESSING - UPPER BODY - SCORE: 0-UNK DRESSING - LOWER BODY: Patient is not dressing in public clothing ARTICLES SCORE Total number of steps: 0 DRESSING - LOWER BODY - SCORE: 0-UNK TOILETING: TOILETING - STEP 1: Does the patient require assistance with toileting? Yes. TOILETING - STEP 2: Does the patient require the assistance of a helper? Yes. TOILETING - STEP 3: How much assistance does the patient require from the helper? Hands-on assistance from the helper TOILETING - STEP 4: Of the 3 tasks: 1) Adjusting clothing prior to use, 2) Cleansing of perineal area, 3) Adjusting clot khalida after use; How many tasks does the patient perform WITHOUT assistance of the helper? One task TOILETING - SCORE: 2-MAX BLADDER MANAGEMENT: [place] removes incontinent device (Depends, pull ups, etc.); cleans the patient after accident / inco ntinent episode; and, applies new incontinent device. BLADDER MANAGEMENT - SCORE: 1-DEP BOWEL MANAGEMENT: Activity did not occur on this shift BOWEL MANAGEMENT - SCORE: 7-IND TRANSFERS: BED, CHAIR, WHEELCHAIR: TRANSFERS: BED, CHAIR, WHEELCHAIR - STEP 1: Does the patient require assistance with bed, chair, or wheelchair transfers? Yes. TRANSFERS: BED, CHAIR, WHEELCHAIR - STEP 2: Does the patient require the assistance of a helper? Yes. TRANSFERS: BED, CHAIR, WHEELCHAIR - STEP 3: How much assistance does the patient require from the helper? Steadying/guiding assistance TRANSFERS: BED, CHAIR, WHEELCHAIR - SCORE: 4-MIN TRANSFERS: TOILET: TRANSFERS: TOILET - STEP 1: Does the patient require assistance with toilet transfers? Yes. TRANSFERS: TOILET - STEP 2: Does the patient require the assistance of a helper? Yes. TRANSFERS: TOILET - STEP 3: How much assistance does the patient require from the helper? Patient performs half or more of the tr ansferring tasks TRANSFERS: TOILET - STEP 4: Does the patient need only incidental help such as contact guard or steadying during toilet transfer? Yes. TRANSFERS: TOILET - SCORE: 4-MIN TRANSFERS: SHOWER: Activity did not occur on this shift TRANSFERS: SHOWER - SCORE: 0-UNK TRANSFERS: TUB: Activity did not occur on this shift TRANSFERS: TUB - SCORE: 0-UNK LOCOMOTION: WALK: Activity did not occur on this shift LOCOMOTION: WALK - SCORE: 0-UNK LOCOMOTION: WHEELCHAIR: Activity did not occur on this shift LOCOMOTION: WHEELCHAIR - SCORE: 0-UNK COMPREHENSION: COMPREHENSION: TYPE: Both COMPREHENSION - STEP 1: Does the patient require help to understand complex and abstract ideas (such as current events, finan mitra, discharge planning, medical issues, relationships, etc)? Yes. COMPREHENSION - STEP 2: Does the patient require help to understand questions or statements about basic needs or ideas (such as hunger, thirst, sleep, safety, daily schedule, room location, or discomfort) half or more of the t janiya? No. COMPREHENSION - STEP 3: How often does the patient need help to understand directions and conversation about basic needs? 10% - 24% of the time COMPREHENSION - SCORE: 4-MIN EXPRESSION EXPRESSION: TYPE: Both EXPRESSION - STEP 1: Does the patient require help expressing complex and abstract ideas (such as current events, finances , discharge planning, medical issues, relationships, etc)? No. EXPRESSION - STEP 2: Does the patient need extra time, require an assistive device (such as augmentive communication syste m or a communication board), OR does s/he have mild difficulty expressing complex and abstract ideas (including mild dysarthria or mild word-find problems)? Yes. EXPRESSION - SCORE: 6-HIPOLITO SOCIAL INTERACTION: SOCIAL INTERACTION - STEP 1: Does the patient require a helper to interact with others in social and therapeutic situations? No. SOCIAL INTERACTION - STEP 2: Does the patient need extra time in social situations, OR does s/he interact with staff, other patien ts, and family members ONLY in structured environments, OR does s/he require medication for social in teraction? Yes, patient needs extra time SOCIAL INTERACTION - SCORE: 6-HIPOLITO PROBLEM SOLVING: PROBLEM SOLVING - STEP 1: Does the patient need help to solve complex problems such as managing a checking account or confronti ng interpersonal problems? Yes. PROBLEM SOLVING - STEP 2: Does the patient solve basic routine problems half or more of the time? Yes. PROBLEM SOLVING - STEP 3: How often does the patient need help to solve basic routine problems? 10%-24% of the time PROBLEM SOLVING - SCORE: 4-MIN MEMORY: MEMORY - STEP 1: Does the patient need help to remember frequently encountered people, daily routines, and executing r equests? No. MEMORY - STEP 2: Does the patient have slight difficulty recognizing frequently encountered people, daily routines, or executing requests without the need for repetition or using self-initiated or environmental cues to remember? Yes. MEMORY - SCORE: 6-HIPOLITO SIGNATURE PANEL: The following modified sections: Eating - Score, Grooming - Score, Dressing - Upper Body - Score, Clement ssing - Lower Body - Score, Toileting - Score, Bladder Management - Score, Bowel Management - Score, Transfers: Bed, Chair, Wheelchair - Score, Transfers: Toilet - Score, Transfers: Shower - Score, Graham sfers: Tub - Score, Locomotion: Walk - Score, Locomotion: Wheelchair - Score, Comprehension - Score, Expression - Score, Social Interaction - Score, Problem Solving - Score, Memory - Score were [electro nically] signed by Chica Mann CNA on WedJan 06 2018 03:18:41 GMT-0500 (Central Daylight Time)
[2018-01-06] MEDS: METOPROLOL XL 25 MG TAB PO SCH ×2 (05:05→17:15)
[2018-01-06] MEDS: LEVOTHYROXINE SOD 0.1 MG TAB PO SCH (05:05)
[2018-01-06 06:56] LABS: Absolute Lymphocytes (CBC) 1.2 K/uL (0.7-4.9); Absolute Monocytes 0.4 K/uL (0.1-1.3); Absolute Neutrophil 4.3 K/uL (1.8-8.0); Basophils % 0.5 % (0-1.3); Eosinophils % 2.7 % (0-4.4); Hematocrit 31.6 % (36.0-45.0); Lymphocytes % 19.9 % (15.3-44.8); MCH 26.6 pg (27.0-35.0); MCV 78.8 fL (80-100); MPV 8.8 fL (7.6-11.3); Monocytes % 6.7 % (3.3-12.3); RBC Red Blood Cell Count 4.01 M/uL (3.86-4.86)
[2018-01-06 07:18] LABS: Albumin 3.2 g/dL (3.4-5.0); Potassium 4.6 mmol/L (3.5-5.1); Prealbumin 24.4 mg/dL (20-40)
[2018-01-06] MEDS: VALSARTAN 80 MG TAB PO SCH (08:13)
[2018-01-06] MEDS: MINOXIDIL 2.5 MG TAB PO SCH ×2 (08:13→21:03)
[2018-01-06] MEDS: SOLIFENACIN SUCCINATE 10 MG PO SCH (08:15)
[2018-01-06] MEDS: CLOPIDOGREL 75 MG TABLET PO SCH (08:15)
[2018-01-06] MEDS: LORATADINE 10 MG TAB PO SCH (08:15)
[2018-01-06] MEDS: FE SULF/FA/VIT B COMP & C TAB PO SCH (08:15)
[2018-01-06] MEDS: SERTRALINE HCL 100 MG TAB PO SCH (08:15)
[2018-01-06] MEDS: PROMOD 30 ML DOSE PO SCH ×2 (08:16→21:03)
[2018-01-06] MEDS: APIXABAN 2.5 MG TABLET PO SCH ×2 (08:16→21:02)
[2018-01-06] MEDS: GABAPENTIN 100 MG CAP PO SCH ×3 (08:16→21:03)
[2018-01-06] MEDS: LIDOCAINE 5% PATCH TOP SCH (10:33)
--- NOTE | 2018-01-06 14:30 | FAST ---
SHIFT START DATE/TIME: 01/06/2018 07:00 (CDT) SHIFT END DATE/TIME: 01/06/2018 19:00 (CDT) NAME JUANA MARQUEZ DATE OF : 1935 DATE OF ADMISSION: 12/27/2017 15:41 (CDT) PHONE: AGE: 82 SSN# [id number] GENDER: Female ENCOUNTER PHYSICIAN: Dr. Arun Joshua M.D. ADMISSION DIAGNOSIS: - Debility 16 - Debility (16) Multiple Falls. EATING: EATING - STEP 1: Does the patient require assistance when eating? Yes. EATING - STEP 2: Does the patient require the assistance of a helper? Yes. EATING - STEP 3: Does the patient perform half or more of the eating tasks? Yes. EATING - STEP 4: Does the patient need only supervision, cuing, coaxing OR help to apply an orthosis OR help to cut fo od, open containers, pour liquids, or butter bread? Yes. EATING - SCORE: 5-SUP GROOMING: Comb/brush hair Wash, rinse, and dry face Wash, rinse, and dry hands GROOMING - STEP 1: Does the patient require assistance when grooming? Yes. GROOMING - STEP 2: Does the patient require the assistance of a helper? No. The patient only requires an assistive devic e, OR takes more than reasonable time to groom, OR there is a concern for safety as the patient groom s GROOMING - SCORE: 6-HIPOLITO BATHING: Activity did not occur on this shift BATHING - SCORE: 0-UNK DRESSING - UPPER BODY: T-shirt/pullover shirt (four steps) ARTICLES SCORE Total number of steps: 4 DRESSING - UPPER BODY - STEP 1: Does the patient require help when dressing above the waist? Yes. DRESSING - UPPER BODY - STEP 2: Does the patient require the assistance of a helper? Yes. DRESSING - UPPER BODY - STEP 3: Does the helper touch the patient while dressing? No. DRESSING - UPPER BODY - SCORE: 5-SUP DRESSING - LOWER BODY: Elastic waist pants (three steps) Sock - Left foot (one step) Sock - Right foot (one step) Underwear (three steps) ARTICLES SCORE Total number of steps: 8 DRESSING - LOWER BODY - STEP 1: Does the patient require help when dressing below the waist? Yes. DRESSING - LOWER BODY - STEP 2: Does the patient require the assistance of a helper? Yes. DRESSING - LOWER BODY - STEP 3: Does the helper touch the patient while dressing? No. DRESSING - LOWER BODY - SCORE: 5-SUP TOILETING: TOILETING - STEP 1: Does the patient require assistance with toileting? Yes. TOILETING - STEP 2: Does the patient require the assistance of a helper? Yes. TOILETING - STEP 3: How much assistance does the patient require from the helper? Only supervision TOILETING - SCORE: 5-SUP BLADDER MANAGEMENT: BLADDER MANAGEMENT - STEP 1: Does the patient control the bladder completely and intentionally without equipment or devices or med ications, and is always continent? No. BLADDER MANAGEMENT - STEP 2: Does the patient require the assistance of a helper? Yes. BLADDER MANAGEMENT - STEP 3: How much assistance does the patient require from the helper? Only supervision, stand-by, cuing, or c oaxing BLADDER MANAGEMENT - SCORE: 5-SUP BLADDER MANAGEMENT - FREQUENCY OF ACCIDENTS: BLADDER MANAGEMENT(FA) - STEP 1: How many accidents has the patient had during the current shift? 0 BOWEL MANAGEMENT: BOWEL MANAGEMENT - STEP 1: Does the patient control bowels completely and intentionally without equipment devices or medications AND is always continent? No. BOWEL MANAGEMENT - STEP 2: Does the patient require the assistance of a helper? No, patient requires extra time BOWEL MANAGEMENT - SCORE: 6-HIPOLITO BOWEL MANAGEMENT - FREQUENCY OF ACCIDENTS: BOWEL MANAGEMENT(FA) - STEP 1: How many accidents has the patient had during the current shift? 0 TRANSFERS: BED, CHAIR, WHEELCHAIR: TRANSFERS: BED, CHAIR, WHEELCHAIR - STEP 1: Does the patient require assistance with bed, chair, or wheelchair transfers? Yes. TRANSFERS: BED, CHAIR, WHEELCHAIR - STEP 2: Does the patient require the assistance of a helper? Yes. TRANSFERS: BED, CHAIR, WHEELCHAIR - STEP 3: How much assistance does the patient require from the helper? Steadying/guiding assistance TRANSFERS: BED, CHAIR, WHEELCHAIR - SCORE: 4-MIN TRANSFERS: TOILET: TRANSFERS: TOILET - STEP 1: Does the patient require assistance with toilet transfers? Yes. TRANSFERS: TOILET - STEP 2: Does the patient require the assistance of a helper? No. Patient only requires an assistive device blanton ch as a grab bar or special seat, OR s/he takes more than reasonable time to perform toilet transfers , OR there is a safety concern when s/he performs toilet transfers. TRANSFERS: TOILET - SCORE: 6-HIPOLITO TRANSFERS: SHOWER: Activity did not occur on this shift TRANSFERS: SHOWER - SCORE: 0-UNK TRANSFERS: TUB: Activity did not occur on this shift TRANSFERS: TUB - SCORE: 0-UNK LOCOMOTION: WALK: Activity did not occur on this shift LOCOMOTION: WALK - SCORE: 0-UNK LOCOMOTION: WHEELCHAIR: LOCOMOTION: WHEELCHAIR - STEP 1: Does the patient need help to go 150 feet in a wheelchair? Yes. LOCOMOTION: WHEELCHAIR - STEP 2: How much assistance does the patient need from the helper? Only supervision, cuing, or coaxing LOCOMOTION: WHEELCHAIR - SCORE: 5-SUP COMPREHENSION: COMPREHENSION: TYPE: Both COMPREHENSION - STEP 1: Does the patient require help to understand complex and abstract ideas (such as current events, finan mitra, discharge planning, medical issues, relationships, etc)? Yes. COMPREHENSION - STEP 2: Does the patient require help to understand questions or statements about basic needs or ideas (such as hunger, thirst, sleep, safety, daily schedule, room location, or discomfort) half or more of the t janiya? No. COMPREHENSION - STEP 3: How often does the patient need help to understand directions and conversation about basic needs? Les s than 10% of the time COMPREHENSION - SCORE: 5-SUP EXPRESSION EXPRESSION: TYPE: Both EXPRESSION - STEP 1: Does the patient require help expressing complex and abstract ideas (such as current events, finances , discharge planning, medical issues, relationships, etc)? No. EXPRESSION - STEP 2: Does the patient need extra time, require an assistive device (such as augmentive communication syste m or a communication board), OR does s/he have mild difficulty expressing complex and abstract ideas (including mild dysarthria or mild word-find problems)? Yes. EXPRESSION - SCORE: 6-HIPOLITO SOCIAL INTERACTION: SOCIAL INTERACTION - STEP 1: Does the patient require a helper to interact with others in social and therapeutic situations? No. SOCIAL INTERACTION - STEP 2: Does the patient need extra time in social situations, OR does s/he interact with staff, other patien ts, and family members ONLY in structured environments, OR does s/he require medication for social in teraction? Yes, patient needs extra time SOCIAL INTERACTION - SCORE: 6-HIPOLITO PROBLEM SOLVING: PROBLEM SOLVING - STEP 1: Does the patient need help to solve complex problems such as managing a checking account or confronti ng interpersonal problems? Yes. PROBLEM SOLVING - STEP 2: Does the patient solve basic routine problems half or more of the time? Yes. PROBLEM SOLVING - STEP 3: How often does the patient need help to solve basic routine problems? Less than 10% of the time PROBLEM SOLVING - SCORE: 5-SUP MEMORY: MEMORY - STEP 1: Does the patient need help to remember frequently encountered people, daily routines, and executing r equests? No. MEMORY - STEP 2: Does the patient have slight difficulty recognizing frequently encountered people, daily routines, or executing requests without the need for repetition or using self-initiated or environmental cues to remember? Yes. MEMORY - SCORE: 6-HIPOLITO SIGNATURE PANEL: The following modified sections: Eating - Score, Grooming - Score, Bathing - Score, Dressing - Upper Body - Score, Dressing - Lower Body - Score, Toileting - Score, Bladder Management - Score, Bowel Man agement - Score, Transfers: Bed, Chair, Wheelchair - Score, Transfers: Toilet - Score, Transfers: Laila wer - Score, Transfers: Tub - Score, Locomotion: Walk - Score, Locomotion: Wheelchair - Score, Compre hension - Score, Expression - Score, Social Interaction - Score, Problem Solving - Score, Memory - Sc ore were [electronically] signed by La Jackson C.N.A. on WedJan 06 2018 14:29:34 T-0500 (Centra l Daylight Time)
--- NOTE | 2018-01-06 15:07 | FAST ---
ENCOUNTER DATE AND TIME: 01/06/2018 08:00 (CDT) NAME JUANA MARQUEZ DATE OF : 1935 DATE OF ADMISSION: 12/27/2017 15:41 (CDT) PHONE: AGE: 82 SSN# [id number] GENDER: Female ENCOUNTER PHYSICIAN: Dr. Arun Joshua M.D. ADMISSION DIAGNOSIS: - Debility 16 - Debility (16) Multiple Falls. EATING: Activity did not occur on this shift EATING - SCORE: 0-UNK GROOMING: Comb/brush hair Oral care Wash, rinse, and dry face Wash, rinse, and dry hands GROOMING - STEP 1: Does the patient require assistance when grooming? No. GROOMING - SCORE: 7-IND BATHING: Activity did not occur on this shift BATHING - SCORE: 0-UNK DRESSING - UPPER BODY: Activity did not occur on this shift ARTICLES SCORE Total number of steps: 0 DRESSING - UPPER BODY - SCORE: 0-UNK DRESSING - LOWER BODY: Slip-on shoe - Left foot (one step) Slip-on shoe - Right foot (one step) Sock - Left foot (one step) Sock - Right foot (one step) ARTICLES SCORE Total number of steps: 4 DRESSING - LOWER BODY - STEP 1: Does the patient require help when dressing below the waist? Yes. DRESSING - LOWER BODY - STEP 2: Does the patient require the assistance of a helper? Yes. DRESSING - LOWER BODY - STEP 3: Does the helper touch the patient while dressing? No. DRESSING - LOWER BODY - SCORE: 5-SUP TOILETING: TOILETING - STEP 1: Does the patient require assistance with toileting? Yes. TOILETING - STEP 2: Does the patient require the assistance of a helper? Yes. TOILETING - STEP 3: How much assistance does the patient require from the helper? Only supervision TOILETING - SCORE: 5-SUP BLADDER MANAGEMENT: Activity did not occur on this shift BLADDER MANAGEMENT - SCORE: 7-IND BOWEL MANAGEMENT: Activity did not occur on this shift BOWEL MANAGEMENT - SCORE: 7-IND TRANSFERS: BED, CHAIR, WHEELCHAIR: Activity did not occur on this shift TRANSFERS: BED, CHAIR, WHEELCHAIR - SCORE: 0-UNK TRANSFERS: TOILET: TRANSFERS: TOILET - STEP 1: Does the patient require assistance with toilet transfers? Yes. TRANSFERS: TOILET - STEP 2: Does the patient require the assistance of a helper? Yes. TRANSFERS: TOILET - STEP 3: How much assistance does the patient require from the helper? Only supervision, cuing, coaxing, OR he lp to set out transfer equipment or to lock brakes and/or lift foot rests TRANSFERS: TOILET - SCORE: 5-SUP TRANSFERS: SHOWER: Activity did not occur on this shift TRANSFERS: SHOWER - SCORE: 0-UNK TRANSFERS: TUB: Activity did not occur on this shift TRANSFERS: TUB - SCORE: 0-UNK LOCOMOTION: WALK: Activity did not occur on this shift LOCOMOTION: WALK - SCORE: 0-UNK LOCOMOTION: WHEELCHAIR: Activity did not occur on this shift LOCOMOTION: WHEELCHAIR - SCORE: 0-UNK LOCOMOTION: STAIRS: Activity did not occur on this shift LOCOMOTION: STAIRS - SCORE: 0-UNK COMPREHENSION: COMPREHENSION - SCORE: 0-UNK EXPRESSION EXPRESSION - SCORE: 0-UNK SOCIAL INTERACTION: SOCIAL INTERACTION - SCORE: 0-UNK PROBLEM SOLVING: PROBLEM SOLVING - SCORE: 0-UNK MEMORY: MEMORY - SCORE: 0-UNK SIGNATURE PANEL: The following modified sections: Eating - Score, Grooming - Score, Bathing - Score, Dressing - Upper Body - Score, Dressing - Lower Body - Score, Toileting - Score, Transfers: Bed, Chair, Wheelchair - S core, Transfers: Toilet - Score, Transfers: Shower - Score, Transfers: Tub - Score, Comprehension - S core, Expression - Score, Social Interaction - Score, Problem Solving - Score, Memory - Score were [e lectronically] signed by PREM Rosado on WedJan 06 2018 15:07:12 T-0500 ([facility] Time)
[2018-01-06] MEDS: ATORVASTATIN 40 MG TAB PO SCH (21:02)
[2018-01-06] MEDS: MELATONIN 3 MG TABLET PO PRN (22:00)
--- NOTE | 2018-01-07 03:02 | FAST ---
SHIFT START DATE/TIME: 01/06/2018 19:00 (CDT) SHIFT END DATE/TIME: 01/07/2018 07:00 (CDT) NAME JUANA MARQUEZ DATE OF : 1935 DATE OF ADMISSION: 12/27/2017 15:41 (CDT) PHONE: AGE: 82 SSN# [id number] GENDER: Female ENCOUNTER PHYSICIAN: Dr. Arun Joshua M.D. ADMISSION DIAGNOSIS: - Debility 16 - Debility (16) Multiple Falls. EATING: Activity did not occur on this shift EATING - SCORE: 0-UNK GROOMING: Wash, rinse, and dry hands GROOMING - STEP 1: Does the patient require assistance when grooming? Yes. GROOMING - STEP 2: Does the patient require the assistance of a helper? Yes. GROOMING - STEP 3: How much assistance does the patient require from the helper? Cuing, coaxing, instructions, or encour agement for completion of grooming GROOMING - SCORE: 5-SUP BATHING: Activity did not occur on this shift BATHING - SCORE: 0-UNK DRESSING - UPPER BODY: Patient is not dressing in public clothing ARTICLES SCORE Total number of steps: 0 DRESSING - UPPER BODY - SCORE: 0-UNK DRESSING - LOWER BODY: Patient is not dressing in public clothing ARTICLES SCORE Total number of steps: 0 DRESSING - LOWER BODY - SCORE: 0-UNK TOILETING: TOILETING - STEP 1: Does the patient require assistance with toileting? Yes. TOILETING - STEP 2: Does the patient require the assistance of a helper? Yes. TOILETING - STEP 3: How much assistance does the patient require from the helper? Hands-on assistance from the helper TOILETING - STEP 4: Of the 3 tasks: 1) Adjusting clothing prior to use, 2) Cleansing of perineal area, 3) Adjusting clot khalida after use; How many tasks does the patient perform WITHOUT assistance of the helper? One task TOILETING - SCORE: 2-MAX BLADDER MANAGEMENT: [place] removes incontinent device (Depends, pull ups, etc.); cleans the patient after accident / inco ntinent episode; and, applies new incontinent device. BLADDER MANAGEMENT - SCORE: 1-DEP BOWEL MANAGEMENT: [place] removes incontinent device (depends, pull ups, etc.); cleans the patient after accident / inco ntinent episode; and, applies new device (depends, pull-ups, padding, etc.). BOWEL MANAGEMENT - SCORE: 1-DEP TRANSFERS: BED, CHAIR, WHEELCHAIR: TRANSFERS: BED, CHAIR, WHEELCHAIR - STEP 1: Does the patient require assistance with bed, chair, or wheelchair transfers? Yes. TRANSFERS: BED, CHAIR, WHEELCHAIR - STEP 2: Does the patient require the assistance of a helper? Yes. TRANSFERS: BED, CHAIR, WHEELCHAIR - STEP 3: How much assistance does the patient require from the helper? Steadying/guiding assistance TRANSFERS: BED, CHAIR, WHEELCHAIR - SCORE: 4-MIN TRANSFERS: TOILET: TRANSFERS: TOILET - STEP 1: Does the patient require assistance with toilet transfers? Yes. TRANSFERS: TOILET - STEP 2: Does the patient require the assistance of a helper? Yes. TRANSFERS: TOILET - STEP 3: How much assistance does the patient require from the helper? Patient performs half or more of the tr ansferring tasks TRANSFERS: TOILET - STEP 4: Does the patient need only incidental help such as contact guard or steadying during toilet transfer? No. Patient needs more than incidental help TRANSFERS: TOILET - SCORE: 3-MOD TRANSFERS: SHOWER: Activity did not occur on this shift TRANSFERS: SHOWER - SCORE: 0-UNK TRANSFERS: TUB: Activity did not occur on this shift TRANSFERS: TUB - SCORE: 0-UNK LOCOMOTION: WALK: Activity did not occur on this shift LOCOMOTION: WALK - SCORE: 0-UNK LOCOMOTION: WHEELCHAIR: Activity did not occur on this shift LOCOMOTION: WHEELCHAIR - SCORE: 0-UNK COMPREHENSION: COMPREHENSION: TYPE: Both COMPREHENSION - STEP 1: Does the patient require help to understand complex and abstract ideas (such as current events, finan mitra, discharge planning, medical issues, relationships, etc)? Yes. COMPREHENSION - STEP 2: Does the patient require help to understand questions or statements about basic needs or ideas (such as hunger, thirst, sleep, safety, daily schedule, room location, or discomfort) half or more of the t janiya? No. COMPREHENSION - STEP 3: How often does the patient need help to understand directions and conversation about basic needs? 10% - 24% of the time COMPREHENSION - SCORE: 4-MIN EXPRESSION EXPRESSION: TYPE: Both EXPRESSION - STEP 1: Does the patient require help expressing complex and abstract ideas (such as current events, finances , discharge planning, medical issues, relationships, etc)? No. EXPRESSION - STEP 2: Does the patient need extra time, require an assistive device (such as augmentive communication syste m or a communication board), OR does s/he have mild difficulty expressing complex and abstract ideas (including mild dysarthria or mild word-find problems)? Yes. EXPRESSION - SCORE: 6-HIPOLITO SOCIAL INTERACTION: SOCIAL INTERACTION - STEP 1: Does the patient require a helper to interact with others in social and therapeutic situations? No. SOCIAL INTERACTION - STEP 2: Does the patient need extra time in social situations, OR does s/he interact with staff, other patien ts, and family members ONLY in structured environments, OR does s/he require medication for social in teraction? Yes, patient needs extra time SOCIAL INTERACTION - SCORE: 6-HIPOLITO PROBLEM SOLVING: PROBLEM SOLVING - STEP 1: Does the patient need help to solve complex problems such as managing a checking account or confronti ng interpersonal problems? Yes. PROBLEM SOLVING - STEP 2: Does the patient solve basic routine problems half or more of the time? Yes. PROBLEM SOLVING - STEP 3: How often does the patient need help to solve basic routine problems? 25%-49% of the time PROBLEM SOLVING - SCORE: 3-MOD MEMORY: MEMORY - STEP 1: Does the patient need help to remember frequently encountered people, daily routines, and executing r equests? No. MEMORY - STEP 2: Does the patient have slight difficulty recognizing frequently encountered people, daily routines, or executing requests without the need for repetition or using self-initiated or environmental cues to remember? Yes. MEMORY - SCORE: 6-HIPOLITO SIGNATURE PANEL: The following modified sections: Eating - Score, Grooming - Score, Dressing - Upper Body - Score, Clement ssing - Lower Body - Score, Toileting - Score, Bladder Management - Score, Bowel Management - Score, Transfers: Bed, Chair, Wheelchair - Score, Transfers: Toilet - Score, Transfers: Shower - Score, [place] sfers: Tub - Score, Locomotion: Walk - Score, Locomotion: Wheelchair - Score, Comprehension - Score, Expression - Score, Problem Solving - Score, Memory - Score, Social Interaction - Score were [electro nically] signed by Chica Mann CNA on WedJan 07 2018 03:01:42 T-0500 ([facility] Time)
[2018-01-07] MEDS: METOPROLOL XL 25 MG TAB PO SCH ×2 (05:17→17:03)
[2018-01-07] MEDS: LEVOTHYROXINE SOD 0.1 MG TAB PO SCH (05:19)
[2018-01-07] MEDS: SOLIFENACIN SUCCINATE 10 MG PO SCH (07:27)
[2018-01-07] MEDS: CLOPIDOGREL 75 MG TABLET PO SCH (08:32)
[2018-01-07] MEDS: MINOXIDIL 2.5 MG TAB PO SCH ×2 (08:32→20:41)
[2018-01-07] MEDS: LIDOCAINE 5% PATCH TOP SCH (08:32)
[2018-01-07] MEDS: FE SULF/FA/VIT B COMP & C TAB PO SCH (08:33)
[2018-01-07] MEDS: LORATADINE 10 MG TAB PO SCH (08:33)
[2018-01-07] MEDS: VALSARTAN 80 MG TAB PO SCH (08:33)
[2018-01-07] MEDS: APIXABAN 2.5 MG TABLET PO SCH ×2 (08:33→20:41)
[2018-01-07] MEDS: SERTRALINE HCL 100 MG TAB PO SCH (08:33)
[2018-01-07] MEDS: GABAPENTIN 100 MG CAP PO SCH ×3 (08:35→20:41)
[2018-01-07] MEDS: ACETAMINOPHEN 500 MG TAB PO PRN (08:36)
[2018-01-07] MEDS: PROMOD 30 ML DOSE PO SCH ×2 (08:37→20:42)
--- NOTE | 2018-01-07 09:43 | P.RH.PN ---
Estimated Length of Stay: 13 Expected Discharge Date: 01/08/18 Discharge Disposition Plan: Home Family Support: Yes Nursing Home Goal: Mobility, Transfers, Self Care Vital Signs: Last Vital Signs Temp 98.0 F 01/07/18 06:30 Pulse 53 01/07/18 08:33 Resp 16 01/07/18 06:30 BP 158/72 H 01/07/18 08:33 Pulse Ox 98 01/07/18 06:30 Laboratory: Laboratory Last Values WBC 6.1 K/uL (4.3-10.9) 01/06/18 06:05 RBC 4.01 M/uL (3.86-4.86) 01/06/18 06:05 Hgb 10.7 g/dL (12.0-15.0) L 01/06/18 06:05 Hct 31.6 % (36.0-45.0) L 01/06/18 06:05 MCV 78.8 fL (80-100) L 01/06/18 06:05 MCH 26.6 pg (27.0-35.0) L 01/06/18 06:05 MCHC 33.8 g/dL (32.0-36.0) 01/06/18 06:05 RDW 15.0 % (12.1-15.2) 01/06/18 06:05 Plt Count 243 K/uL (152-406) 01/06/18 06:05 MPV 8.8 fL (7.6-11.3) 01/06/18 06:05 Neutrophils % 70.2 % (41.7-73.7) 01/06/18 06:05 Lymphocytes % 19.9 % (15.3-44.8) 01/06/18 06:05 Monocytes % 6.7 % (3.3-12.3) 01/06/18 06:05 Eosinophils % 2.7 % (0-4.4) 01/06/18 06:05 Basophils % 0.5 % (0-1.3) 01/06/18 06:05 Absolute Neutrophils 4.3 K/uL (1.8-8.0) 01/06/18 06:05 Absolute Lymphocytes 1.2 K/uL (0.7-4.9) 01/06/18 06:05 Absolute Monocytes 0.4 K/uL (0.1-1.3) 01/06/18 06:05 Absolute Eosinophils 0.2 K/uL (0-0.5) 01/06/18 06:05 Absolute Basophils 0.0 K/uL (0-0.5) 01/06/18 06:05 Sodium 140 mmol/L (136-145) 01/06/18 06:05 Potassium 4.6 mmol/L (3.5-5.1) 01/06/18 06:05 Chloride 106 mmol/L (98-107) 01/06/18 06:05 Carbon Dioxide 28 mmol/L (21-32) 01/06/18 06:05 BUN 23 mg/dL (7-18) H 01/06/18 06:05 Creatinine 0.80 mg/dL (0.55-1.3) 01/06/18 06:05 Estimated GFR 69 mL/min (=/>90) L 01/06/18 06:05 Glucose 107 mg/dL (74-106) H 01/06/18 06:05 Calcium 9.4 mg/dL (8.5-10.1) 01/06/18 06:05 Magnesium 1.8 mg/dL (1.8-2.4) 12/30/17 06:12 Albumin 3.2 g/dL (3.4-5.0) L 01/06/18 06:05 Prealbumin 24.4 mg/dL (20-40) 01/06/18 06:05 Weight: 145 lb 3.2 oz Wound Present: No Closed Surgical Incision Present: No Negative Pressure Wound Therapy Present: No Physician Update: She is doing well physical and occupational therapy. She is at standby assistance with ambulation, stairs and wheelchair mobility. She is at minimum assisance due to cognitive issues. She will discharge home in the AM. Her blood work is essentially normal. Medication Issues: DVT Prophylaxis- Lovenox 40mg Daily SQ Pain Issues: Tylenol 500mg Q6H PRN. Tramadol 50mg Q6H PRN Functional Improvement: pt has demonstrated progress throughout the duration of therapy. pt is currently SBA with her functional mobility and transfers. pt continues to require further therapy to enhance functional performance. Functional Improvement Occupational Therapy: Pt can benifit with further therapy to address pt's overall safety awareness for LB dressing tasks and for energy conservation techniques. Cont increasing pt's endurance and static standing balance for adl tasks.Cont with the POC and the goals by the supervising OTR. Speech Therapy Update: Mild to moderate cognitive impairment. Min to MOD A required for memory. REBECCA for problem solving in last 2 days. Repetition priming and written aides assisting in recall of walking safety. (head up and heels down firts). 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 Please see the Rehabilitation Signature page for all necessary signatures.
--- NOTE | 2018-01-07 18:15 | RAD REPORT ---
EXAM DESCRIPTION: CT - Head Brain Wo Cont - 01/07/2018 6:06 pm CLINICAL HISTORY: increased confusion; decreased balance Drowsiness COMPARISON: Head Brain Wo Cont dated 12/20/2017; Ct Stroke Brain Wo Cont dated 04/26/2017 TECHNIQUE: All CT scans are performed using dose optimization technique as appropriate and may inclu de automated exposure control or mA/KV adjustment according to patient size. FINDINGS: No intracranial hemorrhage, hydrocephalus or extra-axial fluid collection.Moderate general ized brain atrophy is present with moderate periventricular and deep white matter chronic microvascul ar ischemic changes.No areas of brain edema or evidence of midline shift. The paranasal sinuses and mastoids are clear. The calvarium is intact. Left vertebral artery is ather osclerotic. IMPRESSION: No acute intracranial abnormality.
[2018-01-07] MEDS: DOCUSATE NA/SENNA CONC 1 TAB PO PRN (20:41)
[2018-01-07] MEDS: ATORVASTATIN 40 MG TAB PO SCH (20:41)
[2018-01-07] MEDS: MELATONIN 3 MG TABLET PO PRN (20:42)
[2018-01-08] MEDS: METOPROLOL XL 25 MG TAB PO SCH (05:18)
[2018-01-08] MEDS: LEVOTHYROXINE SOD 0.1 MG TAB PO SCH (05:18)
[2018-01-08] MEDS: VALSARTAN 80 MG TAB PO SCH (07:55)
[2018-01-08] MEDS: FE SULF/FA/VIT B COMP & C TAB PO SCH (07:55)
[2018-01-08] MEDS: LIDOCAINE 5% PATCH TOP SCH (07:55)
[2018-01-08] MEDS: CLOPIDOGREL 75 MG TABLET PO SCH (07:56)
[2018-01-08] MEDS: SERTRALINE HCL 100 MG TAB PO SCH (07:57)
[2018-01-08] MEDS: LORATADINE 10 MG TAB PO SCH (07:57)
[2018-01-08] MEDS: SOLIFENACIN SUCCINATE 10 MG PO SCH (07:57)
[2018-01-08] MEDS: APIXABAN 2.5 MG TABLET PO SCH (07:57)
[2018-01-08] MEDS: MINOXIDIL 2.5 MG TAB PO SCH (07:57)
[2018-01-08] MEDS: PROMOD 30 ML DOSE PO SCH (07:58)
[2018-01-08 07:59] VITALS: BP 148/76
[2018-01-08] MEDS: GABAPENTIN 100 MG CAP PO SCH (07:59)
[2018-01-08 09:05] VITALS: TEMP 97.8
--- NOTE | 2018-01-08 23:26 | FAST ---
SHIFT START DATE/TIME: 01/07/2018 19:00 (CDT) SHIFT END DATE/TIME: 01/08/2018 07:00 (CDT) NAME JUANA MARQUEZ DATE OF : 1935 DATE OF ADMISSION: 12/27/2017 15:41 (CDT) PHONE: AGE: 82 SSN# [id number] GENDER: Female ENCOUNTER PHYSICIAN: Dr. Arun Joshua M.D. ADMISSION DIAGNOSIS: - Debility 16 - Debility (16) Multiple Falls. EATING: Activity did not occur on this shift EATING - SCORE: 0-UNK GROOMING: Oral care Wash, rinse, and dry face Wash, rinse, and dry hands GROOMING - STEP 1: Does the patient require assistance when grooming? Yes. GROOMING - STEP 2: Does the patient require the assistance of a helper? Yes. GROOMING - STEP 3: How much assistance does the patient require from the helper? Only prior equipment preparation/set up from the helper GROOMING - SCORE: 5-SUP BATHING: Activity did not occur on this shift BATHING - SCORE: 0-UNK DRESSING - UPPER BODY: Patient is not dressing in public clothing ARTICLES SCORE Total number of steps: 0 DRESSING - UPPER BODY - SCORE: 0-UNK DRESSING - LOWER BODY: Patient is not dressing in public clothing ARTICLES SCORE Total number of steps: 0 DRESSING - LOWER BODY - SCORE: 0-UNK TOILETING: TOILETING - STEP 1: Does the patient require assistance with toileting? Yes. TOILETING - STEP 2: Does the patient require the assistance of a helper? Yes. TOILETING - STEP 3: How much assistance does the patient require from the helper? Hands-on assistance from the helper TOILETING - STEP 4: Of the 3 tasks: 1) Adjusting clothing prior to use, 2) Cleansing of perineal area, 3) Adjusting clot khalida after use; How many tasks does the patient perform WITHOUT assistance of the helper? Two tasks TOILETING - SCORE: 3-MOD BLADDER MANAGEMENT: [place] removes incontinent device (Depends, pull ups, etc.); cleans the patient after accident / inco ntinent episode; and, applies new incontinent device. BLADDER MANAGEMENT - SCORE: 1-DEP BLADDER MANAGEMENT - FREQUENCY OF ACCIDENTS: BLADDER MANAGEMENT(FA) - STEP 1: How many accidents has the patient had during the current shift? 1 BOWEL MANAGEMENT: Activity did not occur on this shift BOWEL MANAGEMENT - SCORE: 7-IND TRANSFERS: BED, CHAIR, WHEELCHAIR: TRANSFERS: BED, CHAIR, WHEELCHAIR - STEP 1: Does the patient require assistance with bed, chair, or wheelchair transfers? Yes. TRANSFERS: BED, CHAIR, WHEELCHAIR - STEP 2: Does the patient require the assistance of a helper? Yes. TRANSFERS: BED, CHAIR, WHEELCHAIR - STEP 3: How much assistance does the patient require from the helper? Steadying/guiding assistance TRANSFERS: BED, CHAIR, WHEELCHAIR - SCORE: 4-MIN TRANSFERS: TOILET: TRANSFERS: TOILET - STEP 1: Does the patient require assistance with toilet transfers? Yes. TRANSFERS: TOILET - STEP 2: Does the patient require the assistance of a helper? Yes. TRANSFERS: TOILET - STEP 3: How much assistance does the patient require from the helper? Only supervision, cuing, coaxing, OR he lp to set out transfer equipment or to lock brakes and/or lift foot rests TRANSFERS: TOILET - SCORE: 5-SUP TRANSFERS: SHOWER: Activity did not occur on this shift TRANSFERS: SHOWER - SCORE: 0-UNK TRANSFERS: TUB: Activity did not occur on this shift TRANSFERS: TUB - SCORE: 0-UNK LOCOMOTION: WALK: Activity did not occur on this shift LOCOMOTION: WALK - SCORE: 0-UNK LOCOMOTION: WHEELCHAIR: Activity did not occur on this shift LOCOMOTION: WHEELCHAIR - SCORE: 0-UNK COMPREHENSION: COMPREHENSION: TYPE: Both COMPREHENSION - STEP 1: Does the patient require help to understand complex and abstract ideas (such as current events, finan mitra, discharge planning, medical issues, relationships, etc)? Yes. COMPREHENSION - STEP 2: Does the patient require help to understand questions or statements about basic needs or ideas (such as hunger, thirst, sleep, safety, daily schedule, room location, or discomfort) half or more of the t janiya? No. COMPREHENSION - STEP 3: How often does the patient need help to understand directions and conversation about basic needs? 10% - 24% of the time COMPREHENSION - SCORE: 4-MIN EXPRESSION EXPRESSION: TYPE: Both EXPRESSION - STEP 1: Does the patient require help expressing complex and abstract ideas (such as current events, finances , discharge planning, medical issues, relationships, etc)? No. EXPRESSION - STEP 2: Does the patient need extra time, require an assistive device (such as augmentive communication syste m or a communication board), OR does s/he have mild difficulty expressing complex and abstract ideas (including mild dysarthria or mild word-find problems)? Yes. EXPRESSION - SCORE: 6-HIPOLITO SOCIAL INTERACTION: SOCIAL INTERACTION - STEP 1: Does the patient require a helper to interact with others in social and therapeutic situations? No. SOCIAL INTERACTION - STEP 2: Does the patient need extra time in social situations, OR does s/he interact with staff, other patien ts, and family members ONLY in structured environments, OR does s/he require medication for social in teraction? Yes, patient needs extra time SOCIAL INTERACTION - SCORE: 6-HIPOLITO PROBLEM SOLVING: PROBLEM SOLVING - STEP 1: Does the patient need help to solve complex problems such as managing a checking account or confronti ng interpersonal problems? Yes. PROBLEM SOLVING - STEP 2: Does the patient solve basic routine problems half or more of the time? Yes. PROBLEM SOLVING - STEP 3: How often does the patient need help to solve basic routine problems? 10%-24% of the time PROBLEM SOLVING - SCORE: 4-MIN MEMORY: MEMORY - STEP 1: Does the patient need help to remember frequently encountered people, daily routines, and executing r equests? Yes. MEMORY - STEP 2: How often does the patient need help to remember frequently encountered people, daily routines, and e xecuting requests? Less than 10% of the time MEMORY - SCORE: 5-SUP
--- NOTE | 2018-01-08 23:26 | FAST ---
SHIFT START DATE/TIME: 01/08/2018 07:00 (CDT) SHIFT END DATE/TIME: 01/08/2018 19:00 (CDT) NAME JUANA MARQUEZ DATE OF : 1935 DATE OF ADMISSION: 12/27/2017 15:41 (CDT) PHONE: AGE: 82 N# [id number] GENDER: Female ENCOUNTER PHYSICIAN: Dr. Arun Joshua M.D. ADMISSION DIAGNOSIS: - Debility 16 - Debility (16) Multiple Falls. EATING: EATING - STEP 1: Does the patient require assistance when eating? Yes. EATING - STEP 2: Does the patient require the assistance of a helper? No, patient only requires an assistive device, O R s/he takes more than reasonable time to eat, OR there is a safety concern, OR s/he requires modifie d food consistency EATING - SCORE: 6-HIPOLITO GROOMING: Comb/brush hair Oral care Wash, rinse, and dry face Wash, rinse, and dry hands GROOMING - STEP 1: Does the patient require assistance when grooming? Yes. GROOMING - STEP 2: Does the patient require the assistance of a helper? Yes. GROOMING - STEP 3: How much assistance does the patient require from the helper? Cuing, coaxing, instructions, or encour agement for completion of grooming GROOMING - SCORE: 5-SUP BATHING: Activity did not occur on this shift BATHING - SCORE: 0-UNK DRESSING - UPPER BODY: T-shirt/pullover shirt (four steps) ARTICLES SCORE Total number of steps: 4 DRESSING - UPPER BODY - STEP 1: Does the patient require help when dressing above the waist? Yes. DRESSING - UPPER BODY - STEP 2: Does the patient require the assistance of a helper? Yes. DRESSING - UPPER BODY - STEP 3: Does the helper touch the patient while dressing? No. DRESSING - UPPER BODY - SCORE: 5-SUP DRESSING - LOWER BODY: ARTICLES SCORE Total number of steps: 3 DRESSING - LOWER BODY - STEP 1: Does the patient require help when dressing below the waist? Yes. DRESSING - LOWER BODY - STEP 2: Does the patient require the assistance of a helper? Yes. DRESSING - LOWER BODY - STEP 3: Does the helper touch the patient while dressing? Yes. DRESSING - LOWER BODY - STEP 4: How many of the total steps does the patient complete on his/her own? 3 DRESSING - LOWER BODY - SCORE: 4-MIN TOILETING: TOILETING - STEP 1: Does the patient require assistance with toileting? Yes. TOILETING - STEP 2: Does the patient require the assistance of a helper? Yes. TOILETING - STEP 3: How much assistance does the patient require from the helper? Hands-on assistance from the helper TOILETING - STEP 4: Of the 3 tasks: 1) Adjusting clothing prior to use, 2) Cleansing of perineal area, 3) Adjusting clot khalida after use; How many tasks does the patient perform WITHOUT assistance of the helper? Two tasks TOILETING - SCORE: 3-MOD BLADDER MANAGEMENT: BLADDER MANAGEMENT - STEP 1: Does the patient control the bladder completely and intentionally without equipment or devices or med ications, and is always continent? No. BLADDER MANAGEMENT - STEP 2: Does the patient require the assistance of a helper? No, patient requires and independently uses an a ssistive device, such as a urinal, bedpan, bedside commode, catheter, absorbent pad, or collecting de vice BLADDER MANAGEMENT - SCORE: 6-HIPOLITO BOWEL MANAGEMENT: Activity did not occur on this shift BOWEL MANAGEMENT - SCORE: 7-IND TRANSFERS: BED, CHAIR, WHEELCHAIR: TRANSFERS: BED, CHAIR, WHEELCHAIR - STEP 1: Does the patient require assistance with bed, chair, or wheelchair transfers? Yes. TRANSFERS: BED, CHAIR, WHEELCHAIR - STEP 2: Does the patient require the assistance of a helper? Yes. TRANSFERS: BED, CHAIR, WHEELCHAIR - STEP 3: How much assistance does the patient require from the helper? Steadying/guiding assistance TRANSFERS: BED, CHAIR, WHEELCHAIR - SCORE: 4-MIN TRANSFERS: TOILET: TRANSFERS: TOILET - STEP 1: Does the patient require assistance with toilet transfers? Yes. TRANSFERS: TOILET - STEP 2: Does the patient require the assistance of a helper? Yes. TRANSFERS: TOILET - STEP 3: How much assistance does the patient require from the helper? Patient performs half or more of the tr ansferring tasks TRANSFERS: TOILET - STEP 4: Does the patient need only incidental help such as contact guard or steadying during toilet transfer? Yes. TRANSFERS: TOILET - SCORE: 4-MIN TRANSFERS: SHOWER: Activity did not occur on this shift TRANSFERS: SHOWER - SCORE: 0-UNK TRANSFERS: TUB: Activity did not occur on this shift TRANSFERS: TUB - SCORE: 0-UNK LOCOMOTION: WALK: Activity did not occur on this shift LOCOMOTION: WALK - SCORE: 0-UNK LOCOMOTION: WHEELCHAIR: Activity did not occur on this shift LOCOMOTION: WHEELCHAIR - SCORE: 0-UNK COMPREHENSION: COMPREHENSION: TYPE: Both COMPREHENSION - STEP 1: Does the patient require help to understand complex and abstract ideas (such as current events, finan mitra, discharge planning, medical issues, relationships, etc)? Yes. COMPREHENSION - STEP 2: Does the patient require help to understand questions or statements about basic needs or ideas (such as hunger, thirst, sleep, safety, daily schedule, room location, or discomfort) half or more of the t janiya? No. COMPREHENSION - STEP 3: How often does the patient need help to understand directions and conversation about basic needs? Les s than 10% of the time COMPREHENSION - SCORE: 5-SUP EXPRESSION EXPRESSION: TYPE: Both EXPRESSION - STEP 1: Does the patient require help expressing complex and abstract ideas (such as current events, finances , discharge planning, medical issues, relationships, etc)? Yes. EXPRESSION - STEP 2: Does the patient require help to express basic necessities or ideas (such as hunger, thirst, sleep, s afety, daily schedule, room location, or discomfort) half or more of the time? No. EXPRESSION - STEP 3: How often does the patient need help to express directions and conversation about basic needs? Less t boothe 10% of the time EXPRESSION - SCORE: 5-SUP SOCIAL INTERACTION: SOCIAL INTERACTION - STEP 1: Does the patient require a helper to interact with others in social and therapeutic situations? No. SOCIAL INTERACTION - STEP 2: Does the patient need extra time in social situations, OR does s/he interact with staff, other patien ts, and family members ONLY in structured environments, OR does s/he require medication for social in teraction? Yes, patient needs extra time SOCIAL INTERACTION - SCORE: 6-HIPOLITO PROBLEM SOLVING: PROBLEM SOLVING - STEP 1: Does the patient need help to solve complex problems such as managing a checking account or confronti ng interpersonal problems? Yes. PROBLEM SOLVING - STEP 2: Does the patient solve basic routine problems half or more of the time? Yes. PROBLEM SOLVING - STEP 3: How often does the patient need help to solve basic routine problems? Less than 10% of the time PROBLEM SOLVING - SCORE: 5-SUP MEMORY: MEMORY - STEP 1: Does the patient need help to remember frequently encountered people, daily routines, and executing r equests? Yes. MEMORY - STEP 2: How often does the patient need help to remember frequently encountered people, daily routines, and e xecuting requests? Less than 10% of the time MEMORY - SCORE: 5-SUP SIGNATURE PANEL: The following modified sections: Eating - Score, Grooming - Score, Bathing - Score, Dressing - Upper Body - Score, Dressing - Lower Body - Score, Toileting - Score, Bladder Management - Score, Bowel Man agement - Score, Transfers: Bed, Chair, Wheelchair - Score, Transfers: Toilet - Score, Transfers: Liala wer - Score, Transfers: Tub - Score, Locomotion: Walk - Score, Locomotion: Wheelchair - Score, Compre hension - Score, Expression - Score, Social Interaction - Score, Problem Solving - Score, Memory - Sc ore were [electronically] signed by Justin Hough on Sat Jan 08 2018 10:10:06 T-0500 (Central Daylight Time)
== END 2018-01-08 13:00 | disposition home or self-care (01) | DRG 948 ==
LOC: 5TH 15:41
PROVIDERS: ADMIT Psychiatry & Neurology Neurology with Special Qualifications in Child Neurology; ATTEND Psychiatry & Neurology Neurology with Special Qualifications in Child Neurology
DX: R53.81 Other malaise (principal); I10 Essential (primary) hypertension; E03.9 Hypothyroidism, unspecified; I69.993 Ataxia following unspecified cerebrovascular disease; E78.5 Hyperlipidemia, unspecified
CPT/HCPCS: 36415; 70450; 80048; 82040; 83735; 84134; 85025; J1650

== ENCOUNTER 2019-10-18 19:10 | Emergency (ER) | payer OTHER ==
[2019-10-18] MEDS ORDERED: LIDOCAINE 1% W/EPI 1:100,000 MDV 20 ML VIAL ONE (19:32)
[2019-10-18] MEDS ORDERED: cloNIDine HCL 0.1 MG TAB ONE (19:40)
[2019-10-18] MEDS ORDERED: NIFEdipine 10 MG CAP ONE (19:41)
--- OUTSIDE RECORDS SUMMARY | 2019-10-18 19:46 | XMS REPORT | Clinical Summary ---
:1935 Author Organization [facility] Address [address] [place] [address] Care Team Providers Name Role Phone MD Rosalva Primary Care Provider Allergies Active Allergy Reactions Severity Noted Date Comments Nitrofurantoin Macrocrystal 02/21/2016 [facility] Medications Medication Sig Dispensed Refills Start End Date Status Date acetaminophen Take 650 mg 0 Acti ve (TYLENOL 8 HOUR) by mouth 650 MG 8 hr tablet every 8 (eight) hours as needed for mild pain. loperamide Take 2 mg by 0 Active (IMODIUM) 2 mg mouth. Prn capsule metoprolol Take 1 tablet 90 tablet 1 Activ e succinate XL (50 mg total) 9 (TOPROL-XL) 50 mg by mouth 24 hr tablet daily. telmisartan Take 1 tablet 90 tablet 1 Acti ve (MICARDIS) 80 MG (80 mg total) 0 tablet by mouth daily. NIFEdipine XL Take 1 tablet 90 tablet 1 Ac tive (PROCARDIA XL) 60 (60 mg total) 0 MG 24 hr tablet by mouth nightly. levothyroxine Take 1 tablet 90 tablet 1 Ac tive (SYNTHROID) 100 mcg (100 mcg 0 tabletIndications: total) by Hypothyroidism, mouth every unspecified type morning. omeprazole Take 1 90 capsule 1 Active (PriLOSEC) 40 MG capsule (40 0 capsule mg total) by mouth daily. ergocalciferol Take 1 12 capsule 0 Acti ve (VITAMIN D2) 50,000 capsule 0 unit (50,000 Units capsuleIndications: total) by Vitamin D mouth once a deficiency week. loratadine Take 1 tablet 90 tablet 1 Activ e (CLARITIN) 10 mg (10 mg total) 0 tabletIndications: by mouth Environmental daily. allergies atorvastatin Take 1 tablet 90 tablet 1 Act jerome (LIPITOR) 40 mg (40 mg total) 0 tabletIndications: by mouth Hyperlipidemia, daily. unspecified hyperlipidemia type acetaminophen-codei Take 1 tablet 0 Active ne (TYLENOL WITH by mouth CODEINE #3) 300-30 nightly as mg per needed for tabletIndications: moderate pain acute pain .acute pain. clonIDINE Take 0.1 mg 0 Active (CATAPRES) 0.1 MG by mouth 2 tablet (two) times a day as needed for high blood pressure. (Prn SBP> 170) donepeziL (Aricept) Take 1 tablet 30 tablet 2 Active 5 MG (5 mg total) 0 21 tabletIndications: by mouth Memory problem nightly. sertraline (ZOLOFT) 150 mg = 1.5 135 tablet 1 Active 100 MG tab, PO,daily 0 tabletIndications: Anxiety associated with depression clopidogreL Take 1 tablet 90 tablet 1 Acti ve (PLAVIX) 75 mg (75 mg total) 0 tabletIndications: by mouth History of ischemic daily. left MCA stroke minoxidiL (LONITEN) Take 1 tablet 180 tablet 1 Active 10 MG tablet (10 mg total) 0 by mouth 2 (two) times a day. ergocalciferol Take 1 12 capsule 3 07/26/19 Disc ontinued (VITAMIN D2) 50,000 capsule 7 20 (Reorder) unit (50,000 Units capsuleIndications: total) by Vitamin D mouth once a deficiency week. atorvastatin Take 1 tablet 90 tablet 1 02/29/20 Dis continued (LIPITOR) 40 MG (40 mg total) 9 19 (Reorder) tabletIndications: by mouth Hyperlipidemia, daily. unspecified hyperlipidemia type clopidogrel Take 1 tablet 90 tablet 1 02/02/20 Disc ontinued (PLAVIX) 75 mg (75 mg total) 9 19 ( Reorder) tabletIndications: by mouth History of ischemic daily. left MCA stroke levothyroxine Take 1 tablet 90 tablet 1 12/02/19 Di scontinued (SYNTHROID, (100 mcg 9 19 (Reorder ) LEVOXYL) 100 mcg total) by tabletIndications: mouth every Hypothyroidism, morning. unspecified type sertraline (ZOLOFT) 150 mg = 1.5 135 tablet 1 Discontinued 100 MG tab, PO,daily 9 19 (Reord er) tabletIndications: Anxiety associated with depression telmisartan Take 1 tablet 90 tablet 0 10/22/19 Disc ontinued (MICARDIS) 80 MG by mouth 9 19 (Re order) tablet every day omeprazole Take 40 mg by 0 12/02/19 Disco ntinued (PriLOSEC) 40 MG mouth daily. 19 (Reorder) capsule loratadine Take 1 tablet 90 tablet 1 02/02/20 Disco ntinued (CLARITIN) 10 mg (10 mg total) 9 19 (Reorder) tabletIndications: by mouth Environmental daily. allergies NIFEdipine XL Take 60 mg by 0 10/22/19 Di scontinued (PROCARDIA XL) 60 mouth 19 (R eorder) MG 24 hr tablet nightly. minoxidil (LONITEN) Take 2.5 mg 0 10/18/19 Discontinued 2.5 MG tablet by mouth 2 19 (two) times a day. metoprolol Take 50 mg by 0 03/28/20 Disco ntinued succinate XL mouth daily. 19 (Reo rder) (TOPROL-XL) 50 mg 24 hr tablet gabapentin Take 100 mg 0 12/02/19 Discont inued (NEURONTIN) 100 mg by mouth. 1 19 (Reorder) capsule capusule in a.m and 2 capsules in the pm minoxidil (LONITEN) Take 10 mg by 0 Discontinued 10 MG tablet mouth 2 (two) 19 (Re order) times a day. telmisartan Take 1 tablet 90 tablet 1 05/04/19 Disc ontinued (MICARDIS) 80 MG (80 mg total) 9 20 (Reorder) tablet by mouth daily. NIFEdipine XL Take 1 tablet 90 tablet 1 06/01/19 Di scontinued (PROCARDIA XL) 60 (60 mg total) 9 20 (Reorder) MG 24 hr tablet by mouth nightly. levothyroxine Take 1 tablet 90 tablet 1 07/10/19 Di scontinued (SYNTHROID, (100 mcg 9 20 (Reorder ) LEVOXYL) 100 mcg total) by tabletIndications: mouth every Hypothyroidism, morning. unspecified type sertraline (ZOLOFT) 150 mg = 1.5 135 tablet 1 Discontinued 100 MG tab, PO,daily 9 20 (Reord er) tabletIndications: Anxiety associated with depression gabapentin Take 1 270 capsule 1 12/14/19 Discont inued (NEURONTIN) 100 mg capsule (100 9 19 (Reorder) capsule mg total) by mouth 3 (three) times a day. 1 capusule in a.m and 2 capsules in the pm omeprazole Take 1 90 capsule 1 07/10/19 Disconti nued (PriLOSEC) 40 MG capsule (40 9 20 ( Reorder) capsule mg total) by mouth daily. traZODone (DESYREL) Take 1 tablet 90 tablet 1 100 MG tablet (100 mg 9 19 total) by mouth nightly for 90 days. gabapentin 1 capusule in 270 capsule 1 07/10/19 Dis continued (NEURONTIN) 100 mg a.m and 2 9 20 ( Reorder) capsule capsules in the pm clopidogrel Take 1 tablet 90 tablet 1 07/26/19 Disc ontinued (PLAVIX) 75 mg (75 mg total) 9 20 ( Reorder) tabletIndications: by mouth History of ischemic daily. left MCA stroke loratadine Take 1 tablet 90 tablet 1 09/02/19 Disco ntinued (CLARITIN) 10 mg (10 mg total) 9 20 (Reorder) tabletIndications: by mouth Environmental daily. allergies atorvastatin Take 1 tablet 90 tablet 1 09/02/19 Dis continued (LIPITOR) 40 MG (40 mg total) 9 20 (Reorder) tabletIndications: by mouth Hyperlipidemia, daily. unspecified hyperlipidemia type minoxidil (LONITEN) Take 1 tablet 180 tablet 1 07/25 Discontinued 10 MG tablet (10 mg total) 9 20 (Re order) by mouth 2 (two) times a day. acetaminophen-codei Take 1 tablet 270 tablet 0 06/09 Discontinued ne (TYLENOL WITH by mouth 0 20 (Re order) CODEINE #3) 300-30 every 8 mg per (eight) hours tabletIndications: as needed for acute pain, chronic moderate pain pain or severe pain (chronic pain) for up to 90 days .acute pain, chronic pain. sertraline (ZOLOFT) 150 mg = 1.5 135 tablet 1 Discontinued 100 MG tab, PO,daily 0 20 (Reord er) tabletIndications: Anxiety associated with depression acetaminophen-codei Take 1 tablet 270 tablet 0 06/12 Discontinued ne (TYLENOL WITH by mouth 0 20 (Re order) CODEINE #3) 300-30 every 8 mg per (eight) hours tabletIndications: as needed for acute pain, chronic moderate pain pain or severe pain (chronic pain) for up to 90 days .acute pain, chronic pain. acetaminophen-codei chronic pain. 270 tablet 0 09/09 ne (TYLENOL WITH Take 1 tbl q 0 20 CODEINE #3) 300-30 8 hrs prn for mg per moderate pain tabletIndications: chronic pain gabapentin 1 capusule in 270 capsule 1 07/11/19 Dis continued (NEURONTIN) 100 mg a.m and 2 0 20 ( Reorder) capsule capsules in the pm traZODone (DESYREL) Take 1 tablet 90 tablet 1 Discontinued 100 MG tablet (100 mg 0 20 (Reord er) total) by mouth nightly for 90 days. traZODone (DESYREL) Take 1 tablet 30 tablet 0 100 MG tablet (100 mg 0 20 total) by mouth nightly for 90 days. gabapentin 1 capusule in 90 capsule 0 08/04/19 Disc ontinued (NEURONTIN) 100 mg a.m and 2 0 20 capsule capsules in the pm minoxidiL (LONITEN) Take 1 tablet 180 tablet 0 10/17 Discontinued 10 MG tablet (10 mg total) 0 20 (Re order) by mouth 2 (two) times a day. clopidogreL Take 1 tablet 90 tablet 0 10/18/19 Disc ontinued (PLAVIX) 75 mg (75 mg total) 0 20 ( Reorder) tabletIndications: by mouth History of ischemic daily. left MCA stroke gabapentin TAKE 1 90 capsule 0 09/21/19 Disconti nued (NEURONTIN) 100 mg CAPSULE BY 0 20 capsule MOUTH EVERY DAY IN THE MORNING AND 2 CAPSULES IN THE EVENING sertraline (ZOLOFT) 150 mg = 1.5 135 tablet 1 Discontinued 100 MG tab, PO,daily 0 20 (Reord er) tabletIndications: Anxiety associated with depression ciprofloxacin Take 1 tablet 14 tablet 0 09/20/19 Ex pired (CIPRO) 500 MG (500 mg 0 20 tabletIndications: total) by UTI symptoms mouth 2 (two) times a day for 7 days. sertraline (ZOLOFT) 150 mg = 1.5 45 tablet 0 0 Discontinued 100 MG tab, PO,daily 0 20 (Reord er) tabletIndications: Anxiety associated with depression Active Problems Problem Noted Date Medication management contract agreement 09/21/2019 Ptosis of eyelid, left 04/26/2019 Prediabetes 12/23/2018 Overview: Status post placement of implantable loop recorder 09/2018 Cholelithiasis 08/25/2018 Overview: 08/25/2018 US Cholelithiasis without imaging findings to suspect acute cholecystitis. Renal cyst 08/25/2018 Overview: 08/25/2018 US ; Simple bilateral renal c ysts are noted measuring 6 mm on the right and 7.6 cm on the left. Bosniak 1. Weakness 05/02/2018 Physical deconditioning 11/25/2017 Right shoulder pain 06/15/2017 Urinary incontinence 02/04/2017 History of ischemic left MCA stroke 01/13/2017 Sialorrhea 09/22/2016 DJD (degenerative joint disease), multiple sites 08/12 Lactose intolerance 04/16/2016 Memory problem 04/15/2016 Gout, arthropathy 04/15/2016 Essential hypertension 02/21/2016 HLD (hyperlipidemia) 02/21/2016 Gastroesophageal reflux disease without esophagitis Neuropathy 02/21/2016 Vitamin D deficiency 02/21/2016 Hypothyroidism 02/21/2016 Atopic rhinitis 02/21/2016 Anxiety associated with depression 02/21/2016 Insomnia 02/21/2016 Rectal incontinence 02/21/2016 History of CVA with residual deficit 02/21/2016 CTS (carpal tunnel syndrome) 02/21/2016 Gait instability 02/21/2016 Arthritis of spine 02/21/2016 Overview: S/p back surgery FU w ortho spine Resolved Problems Problem Noted Date Resolved Date Acute cerebrovascular accident (CVA) 05/10/201807/2019 Encounters Date Type Specialty Care Team Description 10/18/2019 Refill Internal Medicine Rhett Blackwell Histor y of ischemic left MD GRIFFIN stroke 10/10/2019 Telephone Family Rhett Medina MD 10/06/2019 Orders Only Family Rhett Medina Anxiety associated with depression 10/06/2019 Refill Family Rhett Medina, Anxiety associated with depression 10/02/2019 Telephone Family Rhett Medina MD 09/29/2019 Orders Only Internal Medicine Oseas Ramirez MD 09/21/2019 Office Visit Family Rhett Medina Esstrini armijo hypertension (Primary Dx); 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); Hypothyroidism, unspecified type; Hyperlipidemia, unspecified hyperlipidemia type; Memory problem; Anxiety associa benjie with depression; Insomnia, unspe cified type; Gout, arthropat hy; Osteoarthritis of multiple joints, unspecified osteoarthritis type; Neuropathy; Gait instabilit y; Weakness; Physical decond itioning; Incontinence of feces, unspecified fecal incontinence type; Urinary inconti nence, unspecified type; Gastroesophagea l reflux disease without esophagitis 09/21/2019 Travel 09/14/2019 Travel 09/13/2019 Telephone Family Rhett Medina Anxiety associated with depression 09/13/2019 Orders Only Family Rhett Medina UTI symp toms (Primary Dx) 09/04/2019 Telephone Rhett Bernard MD 09/02/2019 Refill Internal Medicine Rhett Blackwell Enviro nmental allergies; Hyperlipidemia, unspecified hyperlipidemia type; Anxiety associa benjie with depression 09/01/2019 Orders Only Family [facility] Rhett Blackwell MD 08/29/2019 Telephone Internal Medicine Rhett Blackwell MD 08/27/2019 Refill [facility] Medicine Rhett Blackwell MD 08/08/2019 Refill Family Medicine Rhett Blackwell MD 08/04/2019 Refill [facility] Rhett Blackwell MD 07/26/2019 Refill Internal Medicine Rhett Blackwell, Histor y of ischemic left MCA stroke; Vitamin D defic iency 07/14/2019 Telephone Internal Medicine Rhett Blackwell MD 07/11/2019 Telephone [facility] Rhett Blackwell MD 07/10/2019 Travel 07/07/2019 Telephone Internal Medicine Guerrero Hypothyroi dism, unspecified type; MIREYA Carrizales Anxiety associa benjie with depression; History of isch emic left MCA stroke; Hyperlipidemia, unspecified hyperlipidemia type 07/05/2019 Telephone [facility] Rhett Blackwell MD 06/09/2019 Refill [facility] Rhett Blackwell MD 06/01/2019 Refill Internal Medicine Rhett Blackwell, Enviro nmental allergies; Anxiety associa benjie with depression 05/31/2019 Telephone [facility] Rhett Blackwell MD 05/09/2019 Refill [facility] Rhett Blackwell MD 05/04/2019 Refill Internal Medicine Rhett Blackwell MD 04/27/2019 Telephone Internal Medicine Rhett Blackwell MD 04/26/2019 Lab Lab Rhett Blackwell, Essential h ypertension; Prediabetes; Hyperlipidemia, unspecified hyperlipidemia type; Hypothyroidism, unspecified type; Gout, arthropat hy 04/26/2019 Office Visit [facility] hRett Blackwell, Essentia l hypertension (Primary Dx); History of isch emic left MCA stroke; History of CVA with residual deficit; Gait instabilit y; Physical decond itioning; Neuropathy; Osteoarthritis of multiple joints, unspecified osteoarthritis type; Gout, arthropat hy; Hypothyroidism, unspecified type; Hyperlipidemia, unspecified hyperlipidemia type; Prediabetes; Memory problem; Anxiety associa benjie with depression; Insomnia, unspe cified type; Gastroesophagea l reflux disease without esophagitis; Vitamin D defic iency; Ptosis of eyeli d, left 04/26/2019 Telephone [facility] Katheryn Dumont MA 03/28/2019 Refill Internal Medicine Rhett Blackwell MD 02/28/2019 Refill Family Medicine Rhett Blackwell, Hyperlip idemia, unspecified MD hyperlipidemia type 02/20/2019 Telephone Internal Medicine Rhett Blackwell MD 02/01/2019 Refill Internal Medicine Rhett Blackwell, Histor y of ischemic left MCA stroke; MD Justice carroll llergies 12/23/2018 Office Visit [facility] Rhett Blackwell Essentia l hypertension (Primary Dx); History of isch emic left MCA stroke; History of CVA with residual deficit; Gait instabilit y; Neuropathy; Osteoarthritis of multiple joints, unspecified osteoarthritis type; Physical decond itioning; Hypothyroidism, unspecified type; Gout, arthropat hy; Hyperlipidemia, unspecified hyperlipidemia type; Memory problem; Anxiety associa benjie with depression; Insomnia, unspe cified type; Gastroesophagea l reflux disease without esophagitis; Prediabetes 12/13/2018 Refill Internal Medicine Rhett Blackwell, Neurop athy (Primary Dx) 12/01/2018 Refill Internal Medicine Rhett Blackwell, Hypoth yroidism, unspecified type; Anxiety associa benjie with depression 10/21/2018 Telephone Internal Rhett Medina MD 10/17/2018 Office Visit [facility] Rhett Blackwell Essentia l hypertension (Primary Dx); History of isch emic left MCA stroke; History of CVA with residual deficit; Memory problem; Osteoarthritis of multiple joints, unspecified osteoarthritis type; Arthritis of sp ine; Gait instabilit y; Neuropathy; Physical decond itioning; Weakness; Hypothyroidism, unspecified type; Hyperlipidemia, unspecified hyperlipidemia type; Anxiety associa benjie with depression; Insomnia, unspe cified type; Gastroesophagea l reflux disease without esophagitis after 10/17/2018 Immunizations Name Administration Dates Next Due FLUZONE HIGH-DOSE PF 02/20/2019, 03/24/2017, 02/21/2016 FLUZONE QUAD INTRADERMAL PF 01/17/2018 Pneumococcal Conjugate 13-Valent 08/06/2016 Pneumococcal Polysaccharide 07/29/2018 Pneumococcal, Unspecified 08/21/2004 Family History Medical History Relation Name Comments Aneurysm Brother COPD Brother Heart disease Father Hypertension Mother Stroke Mother Relation Name Status Comments Brother Father Mother Sister Alive x2 carotid block age Social History Tobacco Use Types Packs/Day Years Used Date Former Smoker Cigarettes 0.5 25 Quit: 1991 Smokeless Tobacco: Never Used Tobacco Cessation: Counseling Given: Yes Comments: 1991 quit smoking Alcohol Use Drinks/Week oz/Week Comments Yes rare Sex Assigned at Date Recorded Not on file Job Start Date Occupation Industry Not on file Not on file Not on file Travel History Travel Start Travel End No recent travel history available. COVID-19 Exposure Response Date Recorded In the last month, have you been in contact with No / Unsure 09/21/2019 11:18 AM CDT someone who was confirmed or suspected to have Coronavirus / COVID-19? Last Filed Vital Signs Vital Sign Reading Time Taken Comments Blood Pressure 132/51 09/21/2019 11:27 AM CDT Pulse 55 09/21/2019 11:27 AM CDT Temperature 36.7 C (98 F) 09/21/2019 11:27 AM CDT Respiratory Rate 17 09/21/2019 11:27 AM CDT Oxygen Saturation 97% 09/21/2019 11:27 AM CDT Inhaled Oxygen Concentration - - Weight 66.2 kg (146 lb) 09/21/2019 11:27 AM CDT Height 172.7 cm (5' 8") 09/21/2019 11:27 AM CDT Body Mass Index 22.2 09/21/2019 11:27 AM CDT Plan of Treatment Date Type Specialty Care Team Description 12/20/2019 Office Visit Family Medicine Rhett Blackwell MD [address] [facility] [address] [place] [id number] 84 Health Maintenance Due Date Last Done Comments SHINGLES VACCINES (#1) 06/25/1985 INFLUENZA VACCINE 11/18/2019 02/20/2019, 01/17/2018, 2016, Additional history exists DXA SCAN Discontinued 01/21/2017 65+ PNEUMOCOCCAL VACCINE Completed 07/29/2018, 08/06/2016, 08/21/2004 Implants Implanted Type Area Case Management Coordinator Device Shelf Model / Identifier Expiration Serial / Date Lot Monitor Cardiac Implant Confirm Rx - [id number] Cardiac N/A: N/A [employer] [id number] / Implanted: 05/06/2018 at [facility] (Quantity not on file) [employer] / Related Products Wire K Dual Trcr Pt [id number] Ns - [id number] Temporary Left: MICR O AIRE 1600 [id number] / Implanted: Qty: 2 on 05/21/2017 by Rigo Parada MD a t [facility] Fixation Pin Hand SURGICAL / or Wire INSTRUMENT Wire K Dual Trcr Pt [id number] Ns - [id number] Temporary Left: MICR O AIRE 1600 [id number] / Implanted: Qty: 2 on 05/21/2017 by Rigo Parada MD a t [facility] Fixation Pin Hand SURGICAL / or Wire INSTRUMENT Procedures Procedure Name Priority Date/Time Associated Diagnosis Comme nts NOTIFY HOME HEALTH Routine 09/29/2019 URINALYSIS Routine 08/31/2019 Results for thi s procedure are i n the results section. URINALYSIS Routine 08/31/2019 Results for thi s procedure are i n the results section. URIC ACID LEVEL Routine 04/26/2019 11:29 Gout, arthropathy Res ults for this AM SOFTWARE TEST ENGINEER procedure are i n the results section. URINALYSIS, Routine 04/26/2019 11:29 Essential hypertension R esults for this AUTOMATED WITH AM SOFTWARE TEST ENGINEER procedure are in MICROSCOPY the results section. THYROID STIMULATING Routine 04/26/2019 11:29 Hypothyroidism, R esults for this HORMONE AM SOFTWARE TEST ENGINEER unspecified type procedure a re in the results section. T4, FREE Routine 04/26/2019 11:29 Hypothyroidism, Results for this AM SOFTWARE TEST ENGINEER unspecified type procedure a re in the results section. MICROALBUMIN / Routine 04/26/2019 11:29 Essential hypertension Results for this CREATININE URINE AM SOFTWARE TEST ENGINEER procedure a re in RATIO the results section. LIPID PANEL Routine 04/26/2019 11:29 Hyperlipidemia, Results for this AM SOFTWARE TEST ENGINEER unspecified procedure are i n hyperlipidemia type the resu lts section. HEPATITIS C ANTIBODY Routine 04/26/2019 11:29 Hyperlipidemia, Results for this AM SOFTWARE TEST ENGINEER unspecified procedure are i n hyperlipidemia type the resu lts section. HEPATIC FUNCTION Routine 04/26/2019 11:29 Hyperlipidemia, Resu lts for this PANEL AM SOFTWARE TEST ENGINEER unspecified procedure are i n hyperlipidemia type the resu lts section. HEMOGLOBIN A1C Routine 04/26/2019 11:29 Prediabetes Results f or this AM SOFTWARE TEST ENGINEER procedure are i n the results section. BASIC METABOLIC Routine 04/26/2019 11:29 Essential hyper tension Results for this PANEL AM SOFTWARE TEST ENGINEER Prediabetes procedure are i n the results section. after 10/17/2018 Results Notify Home Health (09/29/2019) Narrative Performed At This result has an attachment that is no t available. Urinalysis (08/31/2019)Only the most recent of2 resultswithin the time period is included. Specimen Urine Narrative Performed At This result has an attachment that is no t available. Hepatitis C antibody (04/26/2019 11:29 AM SOFTWARE TEST ENGINEER) Hepatitis C Ab NON-REACTIVE NON-REACTIVE [facility] [place] Signal/cutoff 0.01 <1.00 [facility] Comment: [place] HCV antibody was non-reactive. There is no laboratory evidence of HCV infection. In most cases, no further action is required. However, if recent HCV exposure is suspected, a test for HCV RN A (test code 49442) is suggested. For additional information please refer to http://education.StopTheHacker/faq/HAS38t9 (This link is being provided for informational/ educational purposes only.) Specimen Blood Resulting Agency Comment Performing Organization Information: Site ID: [id number]: [facility] Address: [address] [place] [id number] Director: Julien Johnson Performing Organization Address City/State/Zipcode Phone Number [employer] [place] [address] [place], [place] [id number] Microalbumin / creatinine urine ratio (04/26/2019 11:29 AM SOFTWARE TEST ENGINEER) Pathologist [facility] Creatinine, 107 20 - 275 [facility] urine, random mg/dL [place] Microalbumin, 3.3 See Note: [facility] urine Comment: mg/dL [place] Reference Range: Reference Range Not established Microalbumin/cre 31 (H) <30 mcg/mg [facility] atinine ratio Comment: creat [place] The ADA defines abnormalities in albumin excretion as follows: Category Result (mcg/mg creatinine) Normal <30 Microalbuminuria 30-299 Clinical albuminuria > OR = 300 The ADA recommends that at least two of three specimens collected within a 3-6 month period be abnormal before considering a patient to be within a diagnostic category. Specimen Blood Resulting Agency Comment Performing Organization Information: Site ID: [id number] Name: [facility] Address: [address] [place] [phone] Director: Julien Johnson Performing Organization Address City/[facility] Phone Number [employer] [place] [address] [place] [phone] Urinalysis, automated with microscopy (04/26/2019 11:29 AM SOFTWARE TEST ENGINEER) Color, UA YELLOW YELLOW [facility] [place] Appearance CLOUDY (A) CLEAR [facility] [place] Specific gravity, 1.016 1.001 - 1.035 [facility] urine [place] pH, urine 5.5 5.0 - 8.0 [facility] [place] Glucose, urine NEGATIVE NEGATIVE [facility] [place] Bilirubin, UA NEGATIVE NEGATIVE [facility] [place] Ketones, UA NEGATIVE NEGATIVE [facility] [place] Occult blood, urine NEGATIVE NEGATIVE [facility] [place] Protein, UA NEGATIVE NEGATIVE [facility] [place] Nitrite, UA NEGATIVE NEGATIVE [facility] [place] Leukocyte esterase, 2+ (A) NEGATIVE [facility] UA [place] WBC, UA 10-20 (A) < OR = 5 /HPF [facility] [place] RBC, UA NONE SEEN < OR = 2 /HPF [facility] [place] Squamous epithelial 0-5 < OR = 5 /HPF [facility] cells, UA [place] Bacteria, UA MANY (A) NONE SEEN /HPF [facility] [place] Hyaline casts, UA NONE SEEN NONE SEEN /LPF [facility] [place] Specimen Blood Resulting Agency Comment Performing Organization Information: Site ID: [id number] Name[facility] Address: [address] [place] [phone] Director: Julien Johnson Performing Organization Address [facility] [facility] Cent[facility]ode Phone Number [employer] [address] [address] Uric acid level (04/26/2019 11:29 AM SOFTWARE TEST ENGINEER) Uric acid 5.2 2.5 - 7.0 [facility] Comment: mg/dL [place] Therapeutic target for gout patients: <6.0 mg/dL Specimen Blood Resulting Agency Comment Performing Organization Information: Site ID: [facility] Address: [address] [place] [id number] Director: Juline Johsnon Performing Organization Address City/[facility]/Zipcode Phone Number [employer] [address] [address] Thyroid stimulating hormone (04/26/2019 11:29 AM SOFTWARE TEST ENGINEER) Pathologist Sig nature TSH 1.81 0.40 - 4.50 mIU/L [facility] Specimen Blood Resulting Agency Comment Performing Organization Information: Site ID: [facility] Name: [facility] Address: [address] [place] [phone] Director: Julien Johnson Performing Organization Address City/[facility] Centercotx Phone Number [employer] [address] [address] T4, free (04/26/2019 11:29 AM SOFTWARE TEST ENGINEER) Pathologist Sig nature T4, free 1.3 0.8 - 1.8 ng/dL [facility] [place] Specimen Blood Resulting Agency Comment Performing Organization Information: Site ID: [facility] Name: [facility] Address: [address] [place] [phone] Director: Julien Johnson Performing Organization Address [facility] Phone Number [employer] [address] [address] Hemoglobin A1c (04/26/2019 11:29 AM SOFTWARE TEST ENGINEER) Hemoglobin A1C 5.5 <5.7 % of [facility] Comment: total Hgb [place] For the purpose of screening for the presence of diabetes: <5.7% Consistent with the absence of diabetes 5.7-6.4% Consistent with increased risk for diabe edgar (prediabetes) > or =6.5% Consistent with diabetes This assay result is consistent with a decreased risk of diabetes. Currently, no consensus exists regarding use of hemoglobin A1c for diagnosis of diabetes in children. According to [place] Diabetes Association (ADA) guidelines, hemoglobin A1c <7.0% represents optimal control in non- diabetic patients. Different metrics may apply to specific patient populations. Standards of Medical Care in Diabetes(ADA). Specimen Blood Resulting Agency Comment Performing Organization Information: Site ID: [facility] Name: [facility] Address: [address] [place] [phone] Director: Julien Johnson Performing Organization Address City/[facility] Phone Number [employer] [address] [address] Hepatic function panel (04/26/2019 11:29 AM SOFTWARE TEST ENGINEER) Pathologist Sig nature Protein 6.9 6.1 - 8.1 g/dL [facility] [place] Albumin, S 4.3 3.6 - 5.1 g/dL [facility] [place] Globulin, total 2.6 1.9 - 3.7 g/dL [facility] (calc) [place] Albumin/globulin ratio 1.7 1.0 - 2.5 [facility] (calc) [place] Total bilirubin 0.5 0.2 - 1.2 mg/dL [facility] [place] Bilirubin direct 0.1 < OR = 0.2 [facility] mg/dL [place] Bilirubin, indirect 0.4 0.2 - 1.2 mg/dL [facility] (calc) [place] Alkaline phosphatase 78 33 - 130 U/L [facility] [place] AST 16 10 - 35 U/L [facility] [place] ALT 14 6 - 29 U/L [facility] [place] Specimen Blood Resulting Agency Comment Performing Organization Information: Site ID: [facility] Name: [facility] Address: [address] [place] [phone] Director: Julien Johnson Performing Organization Address City/State/Zipcode [place] [address] Lipid panel (04/26/2019 11:29 AM SOFTWARE TEST ENGINEER) Cholesterol, total 135 <200 mg/dL [facility] [place] HDL cholesterol 68 >50 mg/dL [facility] [place] Triglycerides 132 <150 mg/dL [facility] [place] LDL cholesterol 45 mg/dL (calc) [facility] calculated Comment: [place] Reference range: <100 Desirable range <100 mg/dL for primary prevention; <70 mg/dL for patients with CHD or diabetic patients with > or = 2 CHD risk factors. LDL-C is now calculated using the [place] calculation, which is a validated novel method providi ng better accuracy than the Friedewald equation in the estimation of LDL-C. Tristen LOPEZ et al. SHANE. 2013;310(19): 3539-5408 (http://education.Little1.Clipsure/faq/VKL461) Cholesterol/HDL 2.0 <5.0 (calc) [facility] ratio [place] Non-HDL cholesterol 67 <130 mg/dL [facility] Comment: (calc) [place] For patients with diabetes plus 1 major ASCVD risk factor, treating to a non-HDL-C goal of <100 mg/dL (LDL-C of <70 mg/dL) is considered a therapeutic option. Specimen Blood Resulting Agency Comment Performing Organization Information: Site ID: [facility] Name: [facility] Address: [address] [place] [phone] Director: Julien Johnson Performing Organization Address City/State/Zipcode Phone Number [employer] [place] [address] [place] [address] Basic metabolic panel (04/26/2019 11:29 AM SOFTWARE TEST ENGINEER) [facility] Glucose 91 65 - 99 [facility] Comment: mg/dL [place] Fasting reference interval BUN 15 7 - 25 mg/dL [facility] [place] Creatinine 0.97 (H) 0.60 - 0.88 [facility] Comment: mg/dL [place] For patients >49 years of age, the reference limit for Creatinine is approximately 13% higher for people identified as -Polish. EGFR Non-Afr. 54 (L) > OR = 60 [facility] [place] mL/min/1.73m [place] 2 EGFR 63 > OR = 60 [facility] [place] mL/min/1.73m [place] 2 BUN/creatinine 15 6 - 22 [facility] ratio (calc) [place] Sodium 143 135 - 146 [facility] mmol/L [place] Potassium 4.4 3.5 - 5.3 [facility] mmol/L [place] Chloride 104 98 - 110 [facility] mmol/L [place] CO2 29 20 - 32 [facility] mmol/L [place] Calcium 10.1 8.6 - 10.4 [facility] mg/dL [place] Specimen Blood Resulting Agency Comment Performing Organization Information: Site ID: [facility]: [facility] Address: [address] [place] [phone] Director: Julien Johnson Performing Organization Address City/State/Zipcode Phone Number [employer] [place] [address] [place] [address] after 10/17/2018 Insurance Payer Benefit Plan / Subscriber ID Effective Dates Phone Addre ss Type Group [facility] 2002-Present M ilitary MEDICARE MEDICARE PART A xxxxxxxxxxx 2000-Present [place], [place] Medicare AND B Advance Directives For more information, please contact: [phone] Type Date Recorded Patient Corporate Development Intern Explanati on Advance Directives, Living Will 05/21/2017 8:51 AM and Medical Power of Computer Systems Consultant Code Status Date Activated Date Inactivated Comments Full Code 05/10/2018 7:21 PM 05/20/2018 5:04 PM Code Status decision reached by: Patient Full Code 05/02/2018 10:54 PM 05/10/2018 7:01 PM Code Status decision reached by: Patient
--- OUTSIDE RECORDS SUMMARY | 2019-10-18 19:48 | XMS REPORT | Continuity of Care Document ---
:1935 Author Organization [employer] Care Team Providers Name Role Phone [employer] Unavailable Un available Problems Problem Status Onset Classification Date Comments Sourc e Date Reported SPONDYLOLTHESIS Active 08/24/19 [place] rial [place] , 18 Herm christianne SPINAL S Spondylolisthesis, 07/31/19 10/29/2017 Greater lumbar region 18 Height s M43.16 Active 07/06/19 MH Greater SPONDYLOLISTHESIS, 18 H eights LUMBAR REGION Cerebrovascular Resolved 04/19/19 Problem 10/29/2017 resulted MH Ortho accident (disorder) 00 in left and sided Spine, weakness [place] Bradycardia Active Problem 10/29/2017 MH Orth o (disorder) and Spine, [place] Gastroesophageal Active Problem 10/29/2017 MH Ortho reflux disease and (disorder) Spine, [place] Hypertensive Active Problem 10/29/2017 Ort ho disorder, systemic a nd arterial (disorder) Spine, [place] Hypothyroidism Active Problem 10/29/2017 MH O rtho (disorder) and Spine, [place] Incontinence of Active Problem 10/29/2017 Ortho feces (finding) and Spine, [facility] Increased frequency Active Problem 10/29/2017 Ortho of urination and (finding) Spine, [place] Osteoarthritis Active Problem 10/29/2017 MH O rtho (disorder) and Spine, [place] Recurrent urinary Active Problem 10/29/2017 STATES HAS Ortho tract infection A UTI 2-3x and (disorder) A YEAR Spine, [place] Transient ischemic Resolved Problem 10/29/2017 x2 Ortho attack (disorder) an d Spine, [place] Urgent desire to Active Problem 10/29/2017 Ortho urinate (finding) an d Spine, [place] Urinary Active Problem 10/29/2017 wears Ortho incontinence diapers and (finding) Spine, [place] SPONDYLOLISTHESIS, Active M H Greater [place]UMBAR [place] Height s Medications Medication Details Route Status Patient Ordering Order Source Instructions Provider Date gabapentin 300 MG 300 mg = 1 cap, Active Oral Capsule PO, BID, # 90 2018 Ortho cap, 1 and Refill(s), Spine Pharmacy: [facility]/pharmacy #[id number] tizanidine 4 mg 4 mg = 1 tab, Active oral tablet PO, Q8H, PRN 2018 Ortho for muscle and spasms, # 90 Spine tab, 0 Refill(s), Pharmacy: [facility]/pharmacy #[id number] Docusate Sodium 100 mg = 1 cap, Active 100 MG Oral PO, BID, # 60 2018 Ortho Capsule [Colace] cap, 1 and Refill(s), Spine Pharmacy: [facility]/pharmacy #[id number] Sertraline Notes: (Same Inactive as: Zoloft) 2017 Ortho and Spine Omeprazole Notes: Take 1 Inactive hour before or 2018 Ortho 2 hours after and meal; Spine Non-Formulary Drug "Do Not Crush" (Same as: Prilosec) Minoxidil 2.5 mg Minoxidil 2.5 Inactive tablet mg tablet, 2.5 2018 Ortho mg, 1 tab, Drug and form: MISC, Spine Route: PO, Daily, 09/17/17 9:00:00 CDT, Duration: 30 day, Stop date: 10/16/17 9:00:00 CDT Minoxidil 2.5 mg, Route: No Longer PO, Drug form: Active 2018 Ortho TAB, Daily, and Dosing Weight Spine 70.455, kg, Start date: 09/17/17 9:00:00 CDT, Duration: 30 day, Stop date: 10/16/17 9:00:00 CDT meloxicam Notes: (Same Inactive as: Mobic) 2018 Ortho and Spine Loratadine Notes: 1 hr Inactive before meals 2018 Ortho (Same as: and Claritin) Spine Non-formulary item Protonix Notes: Tablet Inactive should not be 2018 Ortho chewed or and crushed. (Same Spine as: Protonix) Thyroxine Notes: Take 1 Inactive hour before or 2018 Ortho 2 hours after and meal; Enteral Spine feeds may interefere with the absorption of this medication. (Same as:Levothroid, Synthroid) metoprolol Notes: (Same No Longer tartrate as: Lopressor) Active 2018 Ortho and Spine atorvastatin Notes: (Same No Longer As: Lipitor) Active 2017 Ortho and Spine Trazodone Notes: (Same No Longer Hydrochloride 100 As: Desyrel) Active 2017 O rtho MG Oral Tablet and Spine Docusate Sodium Notes: (Same No Longer H 100 MG Oral as: Colace) (Do Active 2017 Orth o Capsule Not Crush) and Spine telmisartan Notes: No Longer Non-Formulary Active 2017 Ortho Drug. (Same As: and Micardis) Spine Cefazolin Notes: (Same Inactive As: Anc2017 Ortho Kefzol) and MEDICATION Spine WASTE Product Size: 1000 mg Product Wasted: ___ mg gabapentin 100 MG Notes: (Same No Longer Oral Capsule as: Neurontin) Active 2017 Orth o and Spine Hydralazine 5 mg, Route: Inactive IV, ONCE, 2017 Ortho Dosing Weight and 70.455, kg, Spine Start date: 09/16/17 12:57:00 CDT, Stop date: 09/16/17 12:57:00 CDT fentaNYL (ANES) Route: IV, Drug Inactive form: INJ, 2017 Ortho ONCE, Stop and date: 09/16/17 Spine 12:02:00 CDT Ancef + Sodium Notes: (Same Inactive Chloride 0.9% IV As: Anc2017 Orth o 100 mL Kefzol) and MEDICATION Spine WASTE Product Size: 1000 mg Product Wasted: ___ mg ondansetron Route: IV, Drug Inactive (ANES) form: INJ, 2018 Ortho ONCE, Stop and date: 09/16/17 Spine 11:44:00 CDT Acetaminophen Notes: Do not No Longer exceed 4 Active 2017 Ortho gm/day. (Same and as: Tylenol) Spine Lactated Ringers 1,000 mL, Rate: No Longer 09/16 IV 1,000 mL 75 ml/hr, Active 2017 Ortho Infuse over: and 13.3 hr, Route: Spine IV, Dosing Weight 70.455 kg, Total Volume: 1,000, Start date: 09/16/17 11:34:00 CDT, Duration: 30 day, Stop date: 10/16/17 11:33:00 CDT, 1.85, m2 Acetaminophen 325 Notes: Do not No Longer MG / Hydrocodone exceed 4gm/day Active 2018 Ortho Bitartrate 10 MG of and Oral Tablet acetaminophen. Spine (Same as: [place] 325/10) Aluminum Notes: No Longer Hydroxide 40 (aluminum Active 2017 Ortho MG/ML / Magnesium hydroxide-magne and Hydroxide 40 sium hyd- Spine MG/ML / simethicone Simethicone 4 [id number]/5m MG/ML Oral l 30 ml ud RILEY) Suspension Dulcolax Laxative Notes: (Same No Longer As: Dulcolax, Active 2017 Ortho Correctol) (Do and Not Crush) "Do Spine Not Crush" Morphine Notes: (Same No Longer as:MORPhine Active 2017 Ortho Sulfate) and Spine Ondansetron Notes: (Same No Longer as: Zofran ODT) Active 2018 Ortho and Spine Diphenhydramine Notes: (Same No Longer H as: Benadryl) Active 2018 Ortho and Spine Naloxone Notes: Same as No Longer Narcan Active 2018 Ortho and Spine Hydromorphone Notes: (Same No Longer as: Dilaudid) Active 2018 Ortho conc = 0.5 and mg/ml Spine 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: ;Delay: ;Basal: dexamethasone Route: IV, Drug Inactive H (ANES) form: INJ, 2018 Ortho ONCE, Stop and date: 09/16/17 Spine 11:16:00 CDT phenylephrine Route: IV, Drug Inactive H (ANES) form: INJ, 2018 Ortho ONCE, Stop and date: 09/16/17 Spine 10:46:00 CDT acetaminophen Route: IV, Drug Inactive H (ANES) 10 mg form: INJ, 2018 Ortho Start date: and 09/16/17 Spine 10:33:00 CDT, Stop date: 09/16/17 11:33:00 CDT rocuronium (ANES) Route: IV, Drug Inactive 09/16 form: INJ, 2017 Ortho ONCE, Stop and date: 09/16/17 Spine 10:26:00 CDT ePHEDrine (ANES) Route: IV, Drug Inactive form: INJ, 2017 Ortho ONCE, Stop and date: 09/16/17 Spine 10:21:00 CDT niCARdipine Route: IV, Drug Inactive (ANES) form: INJ, 2017 Ortho ONCE, Stop and date: 09/16/17 Spine 9:41:00 CDT niCARdipine Route: IV, Drug Inactive (ANES) form: INJ, 2017 Ortho ONCE, Stop and date: 09/16/17 Spine 9:21:00 CDT ePHEDrine (ANES) Route: IV, Drug Inactive form: INJ, 2017 Ortho ONCE, Stop and date: 09/16/17 Spine 9:12:00 CDT rocuronium (ANES) Route: IV, Drug Inactive 09/16 form: INJ, 2017 Ortho ONCE, Stop and date: 09/16/17 Spine 9:11:00 CDT propofol (ANES) Route: IV, Drug Inactive form: INJ, 2017 Ortho ONCE, Stop and date: 09/16/17 Spine 9:11:00 CDT succinylcholine Route: IV, Drug Inactive (ANES) form: INJ, 2017 Ortho ONCE, Stop and date: 09/16/17 Spine 9:11:00 CDT fentaNYL (ANES) Route: IV, Drug Inactive form: INJ, 2017 Ortho ONCE, Stop and date: 09/16/17 Spine 9:11:00 CDT lidocaine (ANES) Route: IV, Drug Inactive form: INJ, 2017 Ortho ONCE, Stop and date: 09/16/17 Spine 9:11:00 CDT ceFAZolin (ANES) Route: IV, Drug Inactive form: INJ, 2017 Ortho ONCE, Stop and date: 09/16/17 Spine 9:06:00 CDT phenylephrine Route: IV, Drug Inactive M H (ANES) form: INJ, 2017 Ortho ONCE, Stop and date: 09/16/17 Spine 8:55:00 CDT Zofran ODT Notes: (Same Inactive as: Zofran ODT) 2018 Ortho and Spine propofol (ANES) Route: IV, Drug Inactive 10 mg form: INJ, 2018 Ortho Start date: and 09/16/17 Spine 8:22:00 CDT, Stop date: 09/16/17 9:22:00 CDT Dexamethasone Notes: Inactive Concentration: 2018 Ortho 4mg/ml and Spine Ondansetron Notes: (Same Inactive as: Zofran) 2018 Ortho MEDICATION and WASTE Spine Product Size: 4 mg Product Wasted: ___ mg Naloxone Notes: Same as Inactive Narcan 2018 Ortho and Spine Flumazenil Notes: (Same Inactive as: Romazicon) 2018 Ortho and Spine Oxycodone Notes: (Same Inactive as: Roxicodone) 2018 Ortho and Spine Hydromorphone Notes: Same as Inactive Dilaudid 2018 Ortho and Spine Morphine Notes: (Same Inactive as:MORPhine 2018 Ortho Sulfate) and Spine Acetaminophen Notes: Max Inactive acetaminophen 2018 Ortho 4000 mg/day (4 and gm/day). (Same Spine as: Tylenol Extra Strength) Labetalol 10 mg, 2 mL, Inactive Route: IVP, 2018 Ortho Drug form: INJ, and Q5Min, Dosing Spine Weight 70.455, kg, PRN Elevated BP, Start date: 09/16/17 8:17:00 CDT, Duration: 5 doses or times, Stop date: 09/16/17 17:00:00 CDT Lactated Ringers Route: IV, Inactive Injection IV Total Volume: 2018 Ortho (ANES) 1000 mL 1,000, Start and date: 09/16/17 Spine 7:45:00 CDT, Stop date: 09/16/17 8:45:00 CDT Cefazolin Notes: Same as: Inactive Ancef 2018 Ortho and Spine Trazodone 50 mg = 0.5 Active Hydrochloride 100 tab, PO, 2018 Ortho MG Oral Tablet Bedtime, # 30 and tab, 1 Spine Refill(s) telmisartan 80 mg 80 mg = 1 tab, Active oral tablet PO, QPM, # 30 2017 Ortho tab, 3 and Refill(s) Spine solifenacin 10 mg 10 mg = 1 tab, Active oral tablet PO, Daily, # 30 2017 Orth o tab, 1 and Refill(s) Spine sertraline 100 mg 150 mg = 1.5 Active 05/ M H oral tablet tab, PO, Daily, 2018 Orth o # 30 tab, 0 and Refill(s) Spine omeprazole 40 mg 40 mg = 1 cap, Active oral delayed PO, Daily, take 2017 Ort ho release capsule DOS, # 30 cap, a nd 0 Refill(s) Spine minoxidil 2.5 mg 2.5 mg = 1 tab, Active oral tablet PO, Daily, # 2017 Ortho 180 tab, 3 and Refill(s) Spine metoprolol 50 mg 50 mg = 1 tab, Active oral tablet, PO, BID, take 2017 Ortho extended release DOS, # 30 tab, and 0 Refill(s) Spine meloxicam 15 mg 15 mg = 1 tab, Active 05/ M H oral tablet PO, Daily, # 30 2017 Orth o tab, 0 and Refill(s) Spine levothyroxine 100 100 microgram = Active mcg (0.1 mg) oral 1 tab, PO, 2017 Ort ho tablet Daily, take and DOS, # 60 tab, Spine 0 Refill(s) Levofloxacin 500 500 mg = 1 tab, Inactive MG Oral Tablet PO, Q24H, # 2017 Or tho [Levaquin] tab, 0 and Refill(s) Spine loratadine 10 mg 10 mg = 1 tab, Active oral tablet PO, Daily, # 10 2017 Orth o tab, 0 and Refill(s) Spine gabapentin 100 MG 100 mg = 1 cap, Active Oral Capsule PO, TID, # 90 2017 Ortho cap, 1 and Refill(s) Spine Vitamin D2 50,000 50,000 IntlUnit Active intl units oral = 1 cap, PO, 2017 Ort ho capsule qWeek, # 24 and cap, 0 Spine Refill(s) clopidogrel 75 mg 75 mg = 1 tab, No Longer 08/27 / oral tablet PO, Daily, # 30 Active 2018 Orth o tab, 0 and Refill(s) Spine atorvastatin 40 40 mg = 1 tab, Active 05/ M H mg oral tablet PO, Bedtime, # 2018 Or tho 30 tab, 0 and Refill(s) Spine Allergies, Adverse Reactions, Alerts Substance Category Reaction Severity Reaction Status Date Comments S ource type Reported Macrodantin Assertion itching Drug Active MH allergy [place] Immunizations No Data Provided for This Section Results Order Name Results Value Reference Date Interpretation Comments Marlene rce Range CHEM PANEL Calcium Lvl 8.4 8.5 - 10.5 09/17 Ortho and Spine CHEM PANEL CO2 28 24 - 32 09/17 Ortho and Spine CHEM PANEL Chloride Lvl 107 95 - 109 09/17 Ortho and Spine CHEM PANEL Creatinine 0.96 0.50 - 09/17 MH Lvl 1.40 /2017 Ortho and Spine CHEM PANEL BUN 19 7 - 22 09/17 Ortho and Spine CHEM PANEL eGFR 55 09/17 Result Comment: The Ortho eGFR is and calculated Spine using the CKD-EPI formula. In most young, healthy individuals the eGFR will be >90 mL/min/1.73m2 . The eGFR declines with age. An eGFR of 60-89 may be normal in some populations, particularly the elderly, for whom the CKD-EPI formula has not been extensively validated. Use of the eGFR is not recommended in the following populations:< br/>
Umu viduals with unstable creatinine concentration s, including patients and those with serious co-morbid conditions.<b r/>
Patie nts with extremes in muscle mass or diet.

The data above are obtained from the National Kidney Disease Education Program (NKDEP) which additionally recommends that when the eGFR is used in patients with extremes of body mass index for purposes of drug dosing, the eGFR should be multiplied by the estimated BMI. CHEM PANEL Potassium Lvl 4.1 3.5 - 5.1 09/17 Ortho and Spine CHEM PANEL Sodium Lvl 141 135 - 145 09/17 Ortho and Spine CHEM PANEL Glucose Lvl 134 70 - 99 09/17 /2017 Ortho and Spine CHEM PANEL AGAP 10.1 10.0 - 06/ MH 20.0 /2017 Ortho and Spine HEMATOLOGY Hgb 9.5 12.0 - 06 MH 16.0 /2017 Ortho and Spine HEMATOLOGY Hct 28.2 36.0 - 09/17 MH 48.0 /2017 Ortho and Spine BLOOD BANK Antibody Scrn Negative 09/16 RESULTS (09/16/17 6:10 AM) Ortho and Spine BLOOD BANK ABO/Rh A POS 09/16 MH RESULTS /2017 Ortho and Spine BLOOD BANK RBC product Product available 09/16 RESULTS (09/16/17 5:00 AM) Ortho and Spine BLOOD BANK ABO/Rh A POS 08/27 MH RESULTS /2017 Ortho and Spine BLOOD BANK Antibody Scrn Negative 08/27 RESULTS (08/27/17 12:50 PM) Ortho and Spine CHEM PANEL eGFR 61 08/27 Result Comment: The Ortho eGFR is and calculated Spine using the CKD-EPI formula. In most young, healthy individuals the eGFR will be >90 mL/min/1.73m2 . The eGFR declines with age. An eGFR of 60-89 may be normal in some populations, particularly the elderly, for whom the CKD-EPI formula has not been extensively validated. Use of the eGFR is not recommended in the following populations:< br/>
Umu viduals with unstable creatinine concentration s, including patients and those with serious co-morbid conditions.<b r/>
Patie nts with extremes in muscle mass or diet.

The data above are obtained from the National Kidney Disease Education Program (NKDEP) which additionally recommends that when the eGFR is used in patients with extremes of body mass index for purposes of drug dosing, the eGFR should be multiplied by the estimated BMI. CHEM PANEL ASPARTATE 19 0 - 37 08/27 MH TRANSAMINASE /2017 Ortho and Spine CHEM PANEL Alk Phos 67 39 - 136 08/27 /2017 Ortho and Spine CHEM PANEL ALANINE 19 0 - 65 08/27 MH AMINOTRANSFER /2017 Ortho ASE and Spine CHEM PANEL Bili Total 0.7 0.2 - 1.3 08/27 Ortho and Spine CHEM PANEL Albumin Lvl 3.7 3.5 - 5.0 08/27 Ortho and Spine CHEM PANEL Glucose Lvl 86 70 - 99 08/27 Ortho and Spine CHEM PANEL Sodium Lvl 144 135 - 145 08/27 Ortho and Spine CHEM PANEL Potassium Lvl 4.2 3.5 - 5.1 08/27 Ortho and Spine CHEM PANEL Creatinine 0.88 0.50 - 08/27 MH Lvl 1.40 /2017 Ortho and Spine CHEM PANEL BUN 14 7 - 22 08/27 Ortho and Spine CHEM PANEL Calcium Lvl 8.7 8.5 - 10.5 08/27 Ortho and Spine CHEM PANEL CO2 30 24 - 32 08/27 Ortho and Spine CHEM PANEL Total Protein 6.6 6.4 - 8.4 08/27 Ortho and Spine CHEM PANEL Chloride Lvl 107 95 - 109 08/27 Ortho and Spine CHEM PANEL B/C Ratio 16 6 - 25 08/27 Ortho and Spine CHEM PANEL Globulin 2.9 2.7 - 4.2 08/27 Ortho and Spine CHEM PANEL AGAP 11.2 10.0 - 08/27 MH 20.0 /2017 Ortho and Spine CHEM PANEL A/G Ratio 1.3 0.7 - 1.6 08/27 Ortho and Spine HEMATOLOGY Basophils 0.6 0.0 - 1.0 08/27 Ortho and Spine HEMATOLOGY Segs 66.3 45.0 - 08/27 MH 75.0 /2018 Ortho and Spine HEMATOLOGY Eosinophils 3.4 0.0 - 4.0 08/27 Ortho and Spine HEMATOLOGY Lymphocytes 23.1 20.0 - 08/27 MH 40.0 /2018 Ortho and Spine HEMATOLOGY Monocytes 6.6 2.0 - 12.0 08/27 Ortho and Spine HEMATOLOGY Eosinophils # 0.2 0.0 - 0.5 08/27 Ortho and Spine HEMATOLOGY Monocytes # 0.4 0.0 - 0.8 08/27 Ortho and Spine HEMATOLOGY Lymphocytes # 1.4 1.0 - 5.5 08/27 Ortho and Spine HEMATOLOGY Segs-Bands # 4.0 1.5 - 8.1 08/27 Ortho and Spine HEMATOLOGY INR 1.02 0.85 - 08/27 MH 1.17 /2017 Ortho and Spine HEMATOLOGY PROTIME 13.4 12.0 - 05 MH 14.7 /2018 Ortho and Spine HEMATOLOGY aPTT 28.3 22.9 - 08/27 35.8 /2018 Ortho and Spine HEMATOLOGY Hct 37.2 36.0 - 08/27 48.0 /2017 Ortho and Spine HEMATOLOGY MCV 79.3 80.0 - 08/27 98.0 /2017 Ortho and Spine HEMATOLOGY MCH 26.5 27.0 - 08/27 MH 31.0 /2017 Ortho and Spine HEMATOLOGY MCHC 33.4 32.0 - 08/27 MH 36.0 /2017 Ortho and Spine HEMATOLOGY Platelet 145 133 - 450 08/27 Ortho and Spine HEMATOLOGY RDW 13.6 11.5 - 08/27 14.5 Ortho and Spine HEMATOLOGY MPV 9.3 7.4 - 10.4 08/27 Ortho and Spine HEMATOLOGY WBC 6.0 3.7 - 10.4 08/27 Ortho and Spine HEMATOLOGY RBC 4.69 4.20 - 08/27 5.40 /2017 Ortho and Spine HEMATOLOGY Hgb 12.4 12.0 - 08/27 16.0 Ortho and Spine URINE AND UA Turbidity Clear Clear 08/27 STOOL (08/27/17 12:50 PM) Ortho and Spine URINE AND UA Color Yellow Yellow 08/27 STOOL *NA* /2017 Ortho (08/27/17 12:50 PM) and Spine URINE AND UA Blood Negative Negative 08/27 STOOL (08/27/17 12:50 PM) Ortho and Spine URINE AND UA Ketones Negative Negative 08/27 STOOL mg/dL mg/dL Ortho and Spine URINE AND UA Bili Negative Negative 08/27 STOOL *NA* Ortho (08/27/17 12:50 PM) and Spine URINE AND UA Glucose Negative Negative 08/27 STOOL mg/dL mg/dL Ortho and Spine URINE AND UA Protein Negative Negative 08/27 STOOL mg/dL mg/dL Ortho and Spine URINE AND UA Spec Grav 1.010 <=1.030 08/27 STOOL /2017 Ortho and Spine URINE AND UA pH 6.0 5.0 - 8.0 08/27 STOOL /2017 Ortho and Spine URINE AND UA Nitrite Negative Negative 08/27 STOOL (08/27/17 12:50 PM) Ortho and Spine URINE AND UA 0.2 0.1 - 1.0 08/27 STOOL Urobilinogen /2017 Ortho and Spine URINE AND UA Leuk Est Negative Negative 08/27 STOOL (08/27/17 12:50 PM) Ortho and Spine URINE AND UA Sq Epi None Seen Few 08/27 STOOL (08/27/17 12:50 PM) Ortho and Spine URINE AND UA RBC None Seen 0 - 2 08/27 STOOL (08/27/17 12:50 PM) Ortho and Spine URINE AND UA WBC 0-2 /HPF None Seen 08/27 STOOL /HPF Ortho and Spine URINE AND UA Bacteria Occasional None Seen 08/27 STOOL /HPF /HPF Ortho and Spine Pathology Reports No Data Provided for This Section Diagnostic Reports Report Value Date Source Chest 1view DX EXAM: XR CHEST 1 VIEW 09/16/2017 [facility] DATE: 09/16/2017 8:17 AM CDT INDICATION: - Subclavian or Internal Jugular Lines Initiated; Call report to Physician. FINDINGS: A single AP view o f the chest is submitted, without a prior study for comparison. Heart is borderline sized. Note is made of aorti c arch calcification. A right jugular central venous catheter has its tip over the mid SVC. Bilateral lower lobe platelike atelectasis. No p leural effusions. Degenerative changes of the thoracic spine with osteophytes. IMPRESSION: 1. Borderline sized heart. 2. Bibasilar subsegmental atelectasis. 3. A right jugular central venous catheter has i ts tip over the mid SVC. Spine cervical wo EXAM: MRI CERVICAL SPINE WITHOUT CONTRAST 07/19 [facility] contrast MRI DATE: 08/11/2017 12:10 PM CDT INDICATION: M48.02 Spinal stenosis, cervical region - M48.02 Spinal stenosis, cervical region COMPARISON: None. TECHNIQUE: Multiplanar, mult isequence noncontrast imaging of the cervical spine. IV contrast: None. FINDINGS: Images are limited by motion. The craniovertebral junction has a normal appear ance. The cerebellar tonsils are i n the normal position. Osteoarthritic changes are seen at the C1-C2 articulation. The cervical vertebral bodies are normal in height. Mild grade 1 anterolisthesis of C3 on C4 and C4 on C5 by 3 mm. Minim al anterolisthesis of C5 on C6 by 1 to 2 mm. Multilevel degenerative change. Disc desiccation and endplate osteophytes are seen throughout. Loss of disc height is greatest at C5-C6. C2-C3: Mild posterior disc b ulge slightly indents the ventral thecal sac. Buckling of the ligamentum flavum mildly indents the dorsal thecal sac. Mild narrowing of the spinal canal. Uncovertebral hypert rophy. Severe left greater t boothe right facet arthropathy with left greater than right foraminal stenoses. C3-C4: 3 to 4 mm posterior d isc bulge/pseudobulge mildly indents the ventral thecal sac without mass effect on the cord. Mild spinal canal stenosis. Right greater than left uncovertebral hypertrophy. Se keiry bilateral facet hypertrophy. Severe bilater al foraminal stenoses. C4-C5:4mm posterior disc bul ge/pseudobulge and osteophyte complex indents the ventral thecal sac without mass effect on the cord. Mild spinal canal stenosis. Bilateral uncovertebral hypertrophy. Severe left and moderate right face t arthropathy. Severe left greater than right foraminal stenosis. C5-C6: Severe loss of disc h eight with endplate osteophytes. 5mm posterior disc osteophyte complex lateralizes slightly to the right. It effaces the ventral CSF space and mildly flattens the ventral rob face of the cord. Mild spina l canal stenosis. Severe right greater than left uncovertebral hypertrophy. Severe left greater than right facet arthropathy. Severe right foraminal stenosis. C6/C7: 3mm posterior disc bu lge mildly indents the ventral thecal sac without mass effect on the cord. Buckling of the ligamentum flavum effaces the dorsal CSF space. Mild spinal canal stenosis. Mild un covertebral hypertrophy. Sev ere facet arthropathy. Mild to moderate foraminal stenoses. C7-T1: No significant spinal canal. Severe left greater than right facet arthropathy. Mild left greater than right foraminal stenosis. The cervical cord is normal in signal intensity. The paraspinous soft tissues are unremarkable. IMPRESSION: Posterior disc osteophyte co mplexes and buckling of ligamentum flavum mildly narrow the spinal canal from C2-C3 through C6-C7. Severe uncovertebral and facet arthropathy result in severe neural foraminal stenoses at multiple levels. Spine lumbar myelogram Spine lumbar myelogram CT 07/23/2017 [facility] Female 82 years Clinical Indication: M43.16 Spondylolisthesis, lumbar region - M43.16 Spondylolisthesis, lumbar region; Comparison: None Technique: Axial acquisition after myelography with sagittal and coronal reformatted views. FINDINGS: The patient has dorantes d previous pedicle screw fusions at L3-L4. Posterior elements of L4-L5 also appear fused. There is a mild anterolisthesis of L4 with respect to L5. Alignment is otherwise sat isfactory. The coronal views demonstrate a mild dextroscoliosis of the midlumbar spine centered at L3. Incidental note is made of a dvanced atherosclerotic vascular disease in the abdominal aorta. T12-L1: Disc space preserved . No significant disc bulge or herniation. No evidence of significant stenosis of the central canal or neural foramina. L1-L2: Mild generalized disc bulge. Some thickening of the ligamentum flavum posteriorly as well as mild facet arthropathy and hypertrophy. Mild narrowing of the left lateral recess. L2-L3: Severe degenerative d isc disease. Vacuum phenomenon. Sclerosis of the adjacent vertebral endplates and marginal spur formation. There is mild AP and moderate transverse narrowing of the canal due to combination of endplate spurring and facet arthropathy/ligamentous thickening. There is moderate to marked lateral recess stenosis bilaterally. L3-L4: Mild disc interval na rrowing. Mild generalized disc bulge. No significant stenosis. L4-L5: Mild degenerative ant erolisthesis of L4 with respect L5. Posterior elements appear fused. Disc space appears fused. Prominent spurring and hypertrophy associated with the right-sided neural rachel en attenuates the lateral re cess/foramen and exiting L4 nerve root sleeve on the right. L5-S1: Mild disc bulge. No s ignificant stenosis of central canal or neural foramina. IMPRESSION: 1. Mild to moderate stenosis of the canal including marked lateral recess stenosis bilaterally at L2-L3 due to accelerated degenerative disc disease. 2. Right-sided lateral reces s and foraminal narrowing with attenuation of exiting nerve root sleeve at L4-L5. 3. Bony fusion at L4-L5 with fixed mild anteroli sthesis of L4 on L5. 4. Intact pedicle screw fusion at L3-L4. SL: [id number] Spine lumbar myelogram Spine lumbar myelogram DX 07/23/2017 [facility] [place] DX Female 82 years Clinical Indication: M43.16 Spondylolisthesis, lumbar region - Comparison: None Technique: After sterile pre paration back using topical iodine solution the patient was given local anesthesia using 3 mL 1% lidocaine injected at the puncture site. A 22-gauge spinal needle was then ad vanced into the thecal sac a t the level of the upper margin of the L3 vertebral body. Approximately 12 mL of Omnipaque 180 was injected intrathecally for imaging. The patient was given instructions afte r the procedure for bed rest and increased fluid intake. FINDINGS: Pedicle screws are visible in association with fusion at the L3-L4 level. The L4-L5 level appears to also be fused. After administration of cont rast media there is an apparent stenosis in the thecal sac at the L2-L3 level. Advanced degenerative spondylosis at this level is associated with prominent marginal endplate spurs. These produce both ve ntral and lateral impressions on the thecal sac narrowing the spinal canal. There is no significant narr owing of the L3-L4 vertebral. At the L4-L5 [...] Pedicle screw fusion at the L3-L4 level appea r stable. 3. Suspect bony fusion at L4-L5. 4. Defect involving the axilla of the exiting ri ght L5 nerve root. 5. See post myelogram CT for additional details. SL: [id number] Consultation Notes No Data Provided for This Section Discharge Summaries No Data Provided for This Section History and Physicals No Data Provided for This Section Vital Signs Vital Sign Value Date Comments Source Heart Rate 66 09/17/2017 [facility] Temperature Oral (F) 98.8 F 09/17/2017 [facility] Systolic (mm Hg) 142 09/17/2017 [facility] Diastolic (mm Hg) 52 09/17/2017 [facility] Heart Rate 66 09/17/2017 [facility] Systolic (mm Hg) 139 09/17/2017 [facility] Diastolic (mm Hg) 60 09/17/2017 [facility] Heart Rate 64 09/17/2017 [facility] Systolic (mm Hg) 103 09/17/2017 [facility] Diastolic (mm Hg) 64 09/17/2017 [facility] Respitory Rate 18 09/17/2017 [facility] Temperature Oral (F) 98.5 F 09/17/2017 [facility] Respitory Rate 16 09/17/2017 [facility] Temperature Oral (F) 98.4 F 09/17/2017 [facility] Respitory Rate 16 09/17/2017 [facility] Height 172.72 cm 09/16/2017 [facility] Weight 70.455 09/16/2017 [facility] BMI Calculated 23.62 09/16/2017 [facility] BMI Calculated 23.82 08/27/2017 [facility] Weight 71.051 08/27/2017 [facility] Height 172.72 cm 08/26/2017 [facility] Encounters Location Location Encounter Encounter Reason Attending ADM ID Stat Source Details Type Number For Provider Date Date Visit [facility] Outpatient [id number] [facility] 07/23 07/24 MH [place] [address] [facility] Outpt Diag [id number] [facility] 08/11 08/12 [facility] Outpatient Services [address] [facility] Inpatient [id number] [facility] 09/16 09/17 [facility] [place] [facility] Procedures Procedure Code Date Perfomer Comments Source Cataract extraction [id number] [facility] Or tho and and insertion of Spine, intraocular lens [facility] Hysterectomy [id number] [facility], [facility] ORIF - Open [id number] Ortho and reduction and Spine, internal fixation [place] Spinal fusion [id number] Ortho an d Spine, [facility] Suspension of [id number] [facility] Ortho an d bladder Spine,[facility] Assessment and Plan Assessment and Plan Date Source Extracted from:Title: Discharge Summary * 09/17/2017 [facility] Author: Darien Bianchi,-BC,MOBILE NURSE,CCRN,DARÍO Date: 09/17/17 Discharge Plan Discharge Summary Plan Discharge Status: improved. Discharge instructions given: to patient , to family member daughter, written discharge instructions (activity level, diet, follow-up appointment, medications). Discharge disposition: discharge to home (into the care of family member, self care). Prescriptions: continue same medications , reviewed (with patient, with caregiver), written and given to patient. Course Improving. Progressing as expected. Education and Follow-up Counseled: patient, family, regarding di agnosis, regarding treatment, regarding medications. Extracted from:Title: History and Physical Author: Darien Bianchi,-BC,MOBILE NURSE,CCRN,DARÍO Date: 09/13/17 Patient: Alana Marquez : 1935 Date: 09/08/2017 History of Present Illness Chief Complaint: Low back pain. Location: Bilateral Injury: Yes Mechanism of injury: The patient has fallen several times in the past 2 weeks. Duration: 2 weeks. Current Symptoms: Patient has difficulty sitting, diffi culty standing, difficulty walking, discomfort with motion, limited range of motion, pain, stiffness Patient does not have bowel/bladder d ysfunction, pain radiating into extremities, parathesias, radicular symptoms Current Treatment: ice, heat, rest, ibuprofen, prior spine s urgery Current Treatment Comments: She had jeb mbar fusion at L4-L5 by me and lumbar [...] use s a walker while ambulating. She underwe nt physical therapy without improvement. She has had an MRI performed Past Surgical History 2 back surgeries, hysterectomy, left knee replacement Social History: Reitred Dominant Hand: Right Handed Walking Assisstance Needed: cane Medications * MEDICATION LIST ON FILE TRAMADOL HCL 50 MG TABS (TRAMADOL HCL) i po q 6 hours prn pa in MEDROL (LISA) 4 MG TABS (METHYLPREDNISOLONE) Use [...] BP: 153/78 Review of Systems General: Denies fevers,chills,sweats,anorexia,fatigue,malais e,weight loss. Eyes: Denies blurring,diplopia,irritatio n,discharge,vision loss,eye pain,photophobia. Ears/Nose/Throat: Denies earache, ear di scharge, tinnitus, decreased hearing, nasal congestion, nosebleeds, sore throat, hoarseness, dysphagia. Cardiovascular: Denies chest pains, palp itations, syncope, dyspnea on exertion, orthopnea, PND, peripheral edema. Respiratory: Denies cough, dyspnea, excessive sputum, hemopt ysis, wheezing. Gastrointestinal: Denies nausea, vomitin g, diarrhea, constipation, change in bowel habits, abdominal [...] agitation. HEENT: Exam reveals lips, teeth, and gum s are within normal limits. Oral pharynx reveals normal oral mucosa. Neck: Supple, symmetric, and without obvious masses. Skin: Without nodularity, rashes, lesions or ulcerations. Respiratory: Breathing is unlabored. Cardiovascular: Regular rate and rhythm. Abdomen: Soft, nontender,without obvious masses. Detailed Back/Spine Exam General: Patient is well developed, well cortney shed, and in no acute distress. Patient is [...] Date of occurrence: 08/11/2017 Findings: Shows multilevel degenera tive changes. There is no spinal cord compression or severe cervical stenosis. No evidence of myelomalacia. From outside source Diagnostic Test: CT myelogram L-spine Findings: I re-reviewed the CT myel ogram. She has severe lumbar stenosis at L2-L3 adjacent to her previous L3-L4 and L4-L5 fusion. Assessment Severe lumbar stenosis L2-L3 adjacent to previous fusion. Plan Instructions for today's visit She is having progressive symptoms and w eakness into her lower extremities. Her cervical MRI [...] neurologic fu nction, paralysis, spinal cord injury, d ural tear, pseudarthrosis, hardware malposition, hardware failure, adjacent level degeneration, dysphagia, blood clots, deep venous thrombosis, hematoma, bowel/ b ladder injury or dysfunstion, stroke, he art attack, , and the need for further surgery. I also explained that the operation is unlikely to relieve 100% of symptoms, and that the goal of the surgery is to improve the pain as much as possi ble. All questions were answered, the patient expressed understanding. She desires to proceed. Disposition: Return to clinic postop. Extracted from:Title: Consult Note Author: Sunday Friend MD Date: 08/27/17 1.Preop cardiovascular exam Type of surgery: L2-3 posterior spinal fusion, intermedi ate risk Surgery specificmedical issues: CVA, hypertension,hyperli pidemia Physical exam concerns: None Patient is unable to perform >4METs A ctivity due to unsteady gait and bilateral LE weakness Baseline EKG shows sinus bradycardia Outpatient internet marketing specialist:Dr Mackenzie Hopkins who has cleared cecelia boles for surgery Revised cardiac risk index scoreis1 ( CVA)consistent with 0.9% risk ofmajor perioperativecardiac event Given patient's prior history of CVA and multiple TIAs suspect she has small vesselcerebrovascular disease andthuswould recommend to avoidperioperative hypotensionorsignificant fluctuations in blood pressures perioper atively to avoidcerebrovascularischemia. Risks and benefits of surgery discussed with patient 2.Lumbar stenosis Scheduled for L2-[address] fusion [address] Dr[address] Timbo goss on 09/16/2017. 3.Hypertension Blood pressures uncontrolled in clinic with systolic blood pressures of 190. Patient reports that this is secondary towhitecoat hypertension. Patient and daughter report that at homeblood pressures cricket diaz runin the 140s systolictaken by her home health nurse. Patient and daughter will fax overblood pressure recordingsdone by home health. Continue ontelmisartan,minoxidil, metoprolol. Given patient&ap os;shistory of multipleTIAs and CVAwith avoid wide fluctuations ofsystolic blood pressure (perioperatively). 4.Hypothyroid Continue on levothyroxine 5.GERD (gastroesophageal reflux disease) Continue onomeprazole 6.Bradycardia Asymptomatic. Patient reports that this is chronic. 7.Bladder incontinence Most likely secondary to lumbar stenosi s. Patient takingsolifenacinshe is instructed to hold7 days prior to surgery to avoid any perioperative urinary retention. 8.Bowel incontinence Most likely secondary to lumbar stenosis as well. Patient us es depends 9.History of CVA (cerebrovascular accident) Has history of CVA [id number] and multiple subsequent TIAs with most recent TIA beingin April of this year. Suspect patient likely has small vessel diseaseintracranially.Takes plavixand statin. Patient i nstructed to holdPlavix on 09/08/2017. W kayleigh recommend to avoidperioperative hypotensionorsignificant fluctuations in blood pressures perioperatively to avoidcerebrovascularischemia. 10.Hyperlipidemia On atorvastatin 11.Anxiety and depression Continue on sertraline [facility] Consult Please [email or web address] any questions Plan of Care No Data Provided for This Section Social History Social History Date Source Social History TypeResponse 08/26/2017 [facility] Substance Abuse Use: None. Exercise 1 Alcohol Current, Frequency: 1-2 times per month. Previous treatment : None. Smoking Status Former smoker; Exposure to Tobacco Smoke None; Cigarette Smoking Last 365 Days No; Reg Smoking Cessation Counseling No2 entered on: 09/16/17 1no exercise, denies SOB with exertion.2quit smoking 1992 Social History TypeResponse 08/26/2017 [facility] Substance Abuse Use: None. Exercise 1 Alcohol Current, Frequency: 1-2 times per month. Previous treatment : None. Smoking Status Former smoker; Exposure to Tobacco Smoke None; Cigarette Smoking Last 365 Days No; Reg Smoking Cessation Counseling No2 entered on: 09/16/17 1no exercise, denies SOB with exertion.2quit smoking 1991 No data available for this 08/12/2017 M[facility] Rose ond section Family History No Data Provided for This Section Advance Directives No Data Provided for This Section Functional Status No Data Provided for This Section
--- OUTSIDE RECORDS SUMMARY | 2019-10-18 19:51 | XMS REPORT | Continuity of Care Document ---
:1935 Author Organization [facility] t Address [address] [place] [address] [address]. [address] [place] [address] Care Team Providers Name Role Phone Rosalva FARR Primary Care Physician Rosalva FARR Attending Clinician Provider Attending Clinician Guerrero GOMES Attending Clinician Unavailable Tim GOMES Attending Clinician Unavailable Tc Attending Clinician Tc Admitting Clinician Payers Payer Name Policy Policy Number Effective Expiration Source Type Date Date [id number] xxxxxxxxxxx 2002 Mike larry 2002-PresentNvlit 00:00:00 Met laurence pereira MEDICAREMEDICARE PART xxxxxxxxxxx 2000 Mike Sena AND 00:00:00 [facility] Bxxxxxxxxxxx2000- [place] Condition Condition Condition Status Onset Resolution Last Treating Co mments Source Name Details Category Date Date Treatment Clinician Date Medication Medication Disease Active johnson management management 09-20 [facility] contract contract 00:00: st agreement agreement 00 Ptosis of Ptosis of Disease Active Liseth gottlieb eyelid, eyelid, 04-26 Methodi left left 00:00: st 00 Prediabete Prediabete Disease Active Overview : [facility] s 12-23 Methodi 00:00: st 00 Status Status Disease Active [place] post post 12-23 Methodi placement placement 00:00: st 00 implantabl implantabl e loop e loop recorder recorder Cholelithi Cholelithi Disease Active Overview : [place] asis asis 08-2508/25/2018 Methodi 00:00: US st 00 Cholelith iasis without imaging findings to suspect acute cholecyst itis. Renal cyst Renal cyst Disease Active Overview : [place] 08-2508/25/2018 Methodi 00:00: US ; st 00 Simple bilateral renal cysts are noted measuring 6 mm on the right and 7.6 cm on the left. Bosniak 1. Weakness Weakness Disease Active [place] 05-02 [facility] 00:00: st 00 Physical Physical Disease Active [place] deconditio deconditio 11-25 Me thodi onesimo onesimo 00:00: st 00 SPONDYLOLT Diagnosis Active 2017-09-17 Memoria HESIS 08-23 14:45:00 l LUMBAR 00:00: Ki REGION , SPONDYLOLT 00 SPINAL S HESIS LUMBAR REGION , SPINAL S Active 08/23/2017 [facility] M43.16 Diagnosis Active 2017-07-23 [facility] oria SPONDYLOLI 3-19 11:07:00 l STHESIS, M43.16 00:00: William n LUMBAR SPONDYLOLI 00 REGION STHESIS, LUMBAR REGION Active 07/05/2017 [facility] Right Right Disease Active [place] shoulder shoulder 2-27 Method i pain pain 00:00: st 00 Urinary Urinary Disease Active 2016-04 [place] incontinen incontinen 0-19 Me odi ce ce 00:00: st 00 History of History of Disease Active [place] 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 Method i left MCA left MCA 00:00: st stroke stroke 00 Sialorrhea Sialorrhea Disease Active [place] 6-06 Methodi 00:00: st 00 DJD DJD Disease Active [place] (degenerat (degenerat 4-26 Me odi jerome joint jerome joint 00:00: st disease), disease), 00 multiple multiple sites sites Lactose Lactose Disease Active 2015-04 [place] intoleranc intoleranc 2- Me odi e e 00:00: st 00 Memory Memory Disease Active 2015-04 [place] problem problem 06-16 Methodi 00:00: st 00 Gout, Gout, Disease Active 2015-04 [place] arthropath arthropath - Me odi y y 00:00: st 00 Essential Essential Disease Active 2015-04 Liseth ston hypertensi hypertensi -04 Me thodi on on 00:00: st 00 HLD HLD Disease Active 2015-04 [place] (hyperlipi (hyperlipi -04 Me thodi demia) demia) 00:00: st 00 Gastroesop Gastroesop Disease Active 2015-04 [facility] hageal hageal 04-22 Methodi reflux reflux 00:00: st disease disease 00 without without esophagiti esophagiti s s Neuropathy Neuropathy Disease Active 2015-04 [place] 04-22 Methodi 00:00: st 00 Vitamin D Vitamin D Disease Active 2015-04 Liseth ston deficiency deficiency 04-22 Me thodi 00:00: st 00 Hypothyroi Hypothyroi Disease Active 2015-04 [facility] dism dism 04-22 Methodi 00:00: st 00 Atopic Atopic Disease Active 2015-04 [place] rhinitis rhinitis 04-22 Method i 00:00: st 00 Anxiety Anxiety Disease Active 2015-04 [place] associated associated - Me odi with with 00:00: st depression depression 00 Insomnia Insomnia Disease Active 2015-04 [place] 04-22 Methodi 00:00: st 00 Rectal Rectal Disease Active 2015-04 [place] incontinen incontinen -04 Me odi ce ce 00:00: st 00 History of History of Disease Active 2015-04 [facility] CVA with CVA with 04-22 Method i residual residual 00:00: st deficit deficit 00 CTS CTS Disease Active 2015-04 [place] (carpal (carpal 04-22 Methodi tunnel tunnel 00:00: st syndrome) syndrome) 00 Gait Gait Disease Active 2015-04 [place] instabilit instabilit -04 Me odi y y 00:00: st 00 Arthritis Arthritis Disease Active 2015-04 Overview: [place] of spine of spine 04-22 S/p back Meth vivian 00:00: surgery st 00 FU w ortho spine Transient Problem Resolve 2017-10-29 M emoria ischemic d 11:49:25 l attack Ki (disorder) Transient ischemic attack (disorder) Resolved Problem 10/29/2017 x2 [facility] Bradycardi Problem Active 2017-10-29 M emoria a 11:49:25 l (disorder) William n Bradycardi a (disorder) Active Problem 10/29/2017 [facility] Gastroesop Problem Active 2017-10-29 emoria hageal 11:49:25 l reflux Clubb disease Gastroesop (disorder) hageal reflux disease (disorder) Active Problem 10/29/2017 [facility] Hypertensi Problem Active 2017-10-29 M emoria ve 11:49:25 l disorder, Club[place] systemic Hypertensi arterial ve (disorder) disorder, systemic arterial (disorder) Active Problem 10/29/2017 [facility] Increased Problem Active 2017-10-29 Dc moria frequency 11:49:25 l of Ki urination Increased (finding) frequency of urination (finding) Active Problem 10/29/2017 [facility] Osteoarthr Problem Active 2017-10-29 M emoria itis 11:49:25 l (disorder) William n Osteoarthr itis (disorder) Active Problem 10/29/2017 [facility] Recurrent Problem Active 2017-10-29 Dc moria urinary 11:49:25 l tract Clubb infection Recurrent (disorder) urinary tract infection (disorder) Active Problem 10/29/2017 STATES HAS A UTI 2-3x A YEAR [facility] Urgent Problem Active 2017-10-29 Memor ia desire to 11:49:25 l urinate Urgent Clubb (finding) desire to urinate (finding) Active Problem 10/29/2017 [facility] SPONDYLOLI Diagnosis Active 2017-07-23 Memoria STHESIS, 11:07:00 l LUMBAR Ki REGION SPONDYLOLI STHESIS, LUMBAR REGION Active [facility] Spondyloli Problem 2017-2017-10-29 2017-10-29 Memoria sthesis, 07-30 11:49:25 11:49:25 l lumbar 03:37: Clubb region Spondyloli 44 sthesis, lumbar region 07/30/2017 10/29/2017 [facility] History of Past Illness Condition Condition Condition Status Onset Resolution Last Treating Co mments Source Name Details Category Date Date Treatment Clinician Date Acute Acute Disease Resolve 2018-0 2019-09-21 2019-09-21 [place] cerebrovas cerebrovas d - 00:00:00 17:39:55 Methodi cular cular 00:00: st accident accident 00 (CVA) (CVA) Cerebrovas Problem Resolve 1999-2017-10-29 2017-10-29 Memoria cular d 04-19 11:49:25 11:49:25 l accident 00:00: Clubb (disorder) Cerebrovas 00 cular accident (disorder) Resolved 04/19/1999 Problem 10/29/2017 resulted in left sided weakness [facility] Allergies, Adverse Reactions, Alerts Allergy Allergy Status Severity Reaction(s) Onset Inactive Treating Comm ents Source Name Type Date Date Clinician Nitrofur Propensi Active 2015-04 welps [place] antoin ty to 04-22 [facility] Macrocry adverse 00:00: st stal reaction 00 s to drug Macrodan Macrodan Active Marge Emerson Family History Family Member Diagnosis Comments Start Date Stop Date Source Natural brother Aneurysm [facility] Natural brother COPD [facility] Natural father Heart disease [place] [facility] Natural mother Hypertension [place] [facility] Natural mother Stroke [facility] thodist Social History Social Habit Start Date Stop Date Quantity Comments Source History of tobacco Current smoker [facility] use Sex Assigned At [facility] Exposure to Not sure [place] Metho dist SARS-CoV-2 (event) Cigarettes smoked 2019-09-21 2019-09-21 [place] [facility] current (pack per 00:00:00 00:00:00 day) - Reported Cigarette 2019-09-21 2019-09-21 [place] Method ist pack-years 00:00:00 00:00:00 Alcohol intake 2019-09-21 2019-09-21 Current drinker [place] [facility] 00:00:00 00:00:00 of alcohol (finding) Social History 2017-08-12 2017-08-12 [facility] H ermchristianne 04:59:00 04:59:00 Tobacco Comment 2016-02-21 2016-02-21 1992 quit [facility] ethodist 00:00:00 00:00:00 smoking Alcohol Comment 2016-02-21 2016-02-21 rare [facility] ethodist 00:00:00 00:00:00 Smoking Status Start Date Stop Date Source Former smoker 2019-09-21 00:00:00 2019-09-21 00:00:00 Hakan Brunsonist Medications Ordered Filled Start Stop Current Ordering Indication Dosage Frequency Signature Comments Components Source Medication Medication Date Date Medication? Clinician (SIG) Name Name clopidogreL Yes History of 75mg QD Take 1 [place] (PLAVIX) 75 - ischemic tablet (75 Methodi mg tablet 00:00: left MCA mg total) st 00 stroke by mouth daily. minoxidiL 2020-0 Yes 10mg Q.5D Take 1 Ameto n (LONITEN) 10-17 tablet (10 Meth vivian 10 MG 00:00: mg total) st tablet 00 by mouth 2 (two) times a day. sertraline Yes Anxiety 150 mg = [place] (ZOLOFT) 10-05 associated 1.5 tab, M ethodi 100 MG 00:00: with PO,daily st tablet 00 depression acetaminoph 2019-0 Yes 650mg Q8H Take 650 [place] en (TYLENOL 6-04 mg by Methodi 8 HOUR) 650 11:39: mouth st MG 8 hr 09 every 8 tablet (eight) hours as needed for mild pain. loperamide 2019-0 Yes 2mg Take 2 mg [place] (IMODIUM) 2 -04 by mouth. Met hodi mg capsule 11:39: Prn st 09 acetaminoph 2019-0 Yes acute pain 1{tbl} QD Take 1 [place] en-codeine 6-04 tablet by Meth vivian (TYLENOL 11:39: mouth st WITH 09 nightly as CODEINE #3) needed for 300-30 mg moderate per tablet pain .acute pain. clonIDINE 2019-0 Yes .1mg Q.5D Take 0.1 [place] (CATAPRES) 6-04 mg by Methodi 0.1 MG 11:39: mouth 2 st tablet 09 (two) times a day as needed for high blood pressure. (Prn SBP> 170) donepeziL 2020- Yes Memory 5mg QD Take 1 Liseth ston (Aricept) 5 6 06-04 problem tablet (5 Methodi MG tablet 00:00: 23:59 mg total) st 00 :00 by mouth nightly. sertraline 2019- No Anxiety 150 mg = [place] (ZOLOFT) 09-12 associated 1.5 tab, Methodi 100 MG 00:00: 00:00 with PO,daily st tablet 00 :00 depression ciprofloxac 2019- 2020- No UTI 500mg Q.5D Take 1 [place] (CIPRO) 09-12 symptoms tablet Me thodi 500 MG 00:00: 23:59 ([address] tablet 00 :00 total) by mouth 2 (two) times a day for 7 days. loratadine 2019-0 Yes Environment 10mg QD Take 1 [place] (CLARITIN) 09-03 al tablet (10 Met hodi 10 mg 00:00: allergies mg total) st tablet 00 by mouth daily. atorvastati 2019- Yes Hyperlipide 40mg QD Take 1 [place] n (LIPITOR) 09-03 camila, tablet (40 Me thodi 40 mg 00:00: unspecified mg total) st tablet 00 hyperlipide by mouth camila type daily. sertraline 2019-2019- No Anxiety 150 mg = [place] (ZOLOFT) 09-03 associated 1.5 tab, Methodi 100 MG 00:00: 00:00 with PO,daily st tablet 00 :00 depression gabapentin 2019- 2020- No TAKE 1 [place] (NEURONTIN) 08-03 CAPSULE BY M ethodi 100 mg 00:00: 00:[address] capsule 00 :00 EVERY DAY IN THE MORNING AND 2 CAPSULES IN THE EVENING ergocalcife 2019- Yes Vitamin D [id number] Q7D Take 1 [place] rol 07-26 deficiency capsule Method i (VITAMIN 00:00: (50,000 st D2) 50,000 00 Units unit total) by capsule mouth once a week. minoxidiL 2019-0 2019- No 10mg Q.5D Take 1 [place] (LONITEN) 07-26 tablet (10 Met hodi 10 MG 00:00: 00:00 mg total) st tablet 00 :00 by mouth 2 (two) times a day. clopidogreL 2019-2019- No History of 75mg QD Take 1 [place] (PLAVIX) 75 07-26 ischemic tablet (75 Methodi mg tablet 00:00: 00:00 left MCA mg total) st 00 :00 stroke by mouth daily. traZODone 2019-0 2019- No 100mg QD Take 1 [place] (DESYREL) 07-10 tablet Methodi 100 MG 00:00: 23:59 ([address] tablet 00 :00 total) by mouth nightly for 90 days. gabapentin 2019- 2020- No 1 capusule [place] (NEURONTIN) 3-24 04-17 in a.m and M ethodi 100 mg 00:00: 00:[address] capsule 00 :00 in the pm levothyroxi 2019-0 Yes Hypothyroid 100ug QD Take 1 [place] ne 07-09 ism, tablet Methodi (SYNTHROID) 00:00: unspecified ([address] 100 mcg 00 type total) by tablet mouth every morning. omeprazole 2019-0 Yes 40mg QD Take 1 [place] (PriLOSEC) 07-09 capsule Method i 40 MG 00:00: ([address] capsule 00 total) by mouth daily. gabapentin 2019-2019- No 1 capusule [place] (NEURONTIN) 07-0924 in a.m and M ethodi 100 mg 00:00: 00:[address] capsule 00 :00 in the pm traZODone 2019-2019- No 100mg QD Take 1 [place] (DESYREL) 07-09 tablet Methodi 100 MG 00:00: 00:00 ([address] tablet 00 :00 total) by mouth nightly for 90 days. acetaminoph 2019- No chronic chronic [place] en-codeine 2 05-24 pain pain. Take Me thodi (TYLENOL 00:00: 23:59 [address] WITH 00 :00 hrs prn CODEINE #3) for 300-30 mg moderate per tablet pain acetaminoph 2019- No chronic 1{tbl} Q8H Take 1 [place] en-codeine 06-09 02-24 pain tablet by Met qiana (TYLENOL 00:00: 00:[address] WITH 00 :00 every 8 CODEINE #3) (eight) 300-30 mg hours as per tablet needed for moderate pain or severe pain (chronic pain) for up to 90 days .acute pain, chronic pain. NIFEdipine 2019- Yes 60mg QD Take 1 [place] XL 2-13 tablet (60 Methodi (PROCARDIA 00:00: mg total) st XL) 60 MG 00 by mouth 24 hr nightly. tablet sertraline 2019- No Anxiety 150 mg = [place] (ZOLOFT) 06-01 05-16 associated 1.5 tab, Methodi 100 MG 00:00: 00:00 with PO,daily st tablet 00 :00 depression acetaminoph 2019- No chronic 1{tbl} Q8H Take 1 [place] en-codeine 05-0921 pain tablet by Met hodi (TYLENOL 00:00: 00:[address] WITH 00 :00 every 8 CODEINE #3) (eight) 300-30 mg hours as per tablet needed for moderate pain or severe pain (chronic pain) for up to 90 days .acute pain, chronic pain. telmisartan Yes 80mg QD Take 1 [place] (MICARDIS) 1-16 tablet (80 Met hodi 80 MG 00:00: mg total) st tablet 00 by mouth daily. metoprolol 2018-04- No 50mg QD Take 50 mg [place] succinate 2-10 12-10 by mouth Metho di XL 15:33: 00:[address] (TOPROL-XL) 42 :00 50 mg 24 hr tablet minoxidil 2018-04- No 10mg Q.5D Take 10 mg [place] (LONITEN) 2-10 12-10 by mouth 2 Met hodi 10 MG 15:33: 00:00 (two) st tablet 42 :00 times a day. metoprolol 2018-04 Yes 50mg QD Take 1 [place] succinate 2-10 tablet (50 Meth vivian XL 00:00: mg total) st (TOPROL-XL) 00 by mouth 50 mg 24 hr daily. tablet minoxidil 2018-04- No 10mg Q.5D Take 1 [place] (LONITEN) 2-01 20-08 tablet (10 Met hodi 10 MG 00:00: 00:00 mg total) st tablet 00 :00 by mouth 2 (two) times a day. atorvastati 2018-04- No Hyperlipide 40mg QD Take 1 [place] n (LIPITOR) 04-3016 camila, tablet (40 M ethodi 40 MG 00:00: 00:00 unspecified mg total) st tablet 00 :00 hyperlipide by mouth camila type daily. loratadine 2018-04- No Environment 10mg QD Take 1 [place] (CLARITIN) 16 al tablet (10 Me thodi 10 mg 00:00: 00:00 allergies mg total) s t tablet 00 :00 by mouth daily. clopidogrel 2018-04- No History of 75mg QD Take 1 [place] (PLAVIX) 75 -08 ischemic tablet (75 Methodi mg tablet 00:00: 00:00 left MCA mg total) st 00 :00 stroke by mouth daily. gabapentin 2019- 1 capusule [place] (NEURONTIN) 12-13 in a.m and M ethodi 100 mg 00:00: 00:[address] capsule 00 :00 in the pm omeprazole No 40mg QD Take 40 mg [place] (PriLOSEC) 12-01 by mouth Meth vivian 40 MG 20:57: 00:[address] capsule 06 :00 gabapentin No 100mg Take 100 [place] (NEURONTIN) 12-01 mg by Method i 100 mg 20:57: 00:[address] capsule 06 :00 capusule in a.m and 2 capsules in the pm levothyroxi Hypothyroid 100ug QD Take 1 [place] ne 12-01 ism, tablet Methodi (SYNTHROID, 00:00: 00:00 unspecified ([address] LEVOXYL) 00 :00 type total) by 100 mcg mouth tablet every morning. omeprazole 40mg QD Take 1 [place] (PriLOSEC) 12-01 capsule Metho di 40 MG 00:00: 00:00 ([address] capsule 00 :00 total) by mouth daily. sertraline Anxiety 150 mg = [place] (ZOLOFT) 12-01 associated 1.5 tab, Methodi 100 MG 00:00: 00:00 with PO,daily st tablet 00 :00 depression traZODone 100mg QD Take 1 [place] (DESYREL) 12-01 tablet Methodi 100 MG 00:00: 23:59 ([address] tablet 00 :00 total) by mouth nightly for 90 days. gabapentin 2018- No 100mg [id number] Take 1 [place] (NEURONTIN) 12-01 [id number] capsule Methodi 100 mg 00:00: 00:00 3D ([address] capsule 00 :00 total) by mouth 3 (three) times a day. 1 capusule in a.m and 2 capsules in the pm NIFEdipine 2019-0 2019- No 60mg QD Take 60 mg [place] XL 10-21 by mouth Methodi (PROCARDIA 15:12: 00:[address] XL) 60 MG 05 :00 24 hr tablet NIFEdipine 2019- No 60mg QD Take 1 [place] XL 10-21 0213 tablet (60 Methodi (PROCARDIA 00:00: 00:00 mg total) s t XL) 60 MG 00 :00 by mouth 24 hr nightly. tablet telmisartan 2019- No 80mg QD Take 1 Liseth ston (MICARDIS) 10-21 tablet (80 Me thodi 80 MG 00:00: 00:00 mg total) st tablet 00 :00 by mouth daily. minoxidil 2018- No 2.5mg Q.5D Take 2.5 [place] (LONITEN) 10-17 mg by Methodi 2.5 MG 15:52: 00:[address] tablet 40 :00 (two) times a day. loratadine 2018- No Environment 10mg QD Take 1 [place] (CLARITIN) 08-12 al tablet (10 Me thodi 10 mg 00:00: 00:00 allergies mg total) s t tablet 00 :00 by mouth daily. telmisartan 2018- No Take 1 Liseth taylorn (MICARDIS) 07-21 tablet by Met hodi 80 MG 00:00: 00:[address] tablet 00 :00 every day atorvastati 2018- No Hyperlipide 40mg QD Take 1 [place] n (LIPITOR) 05-31 camila, tablet (40 M ethodi 40 MG 00:00: 00:00 unspecified mg total) st tablet 00 :00 hyperlipide by mouth camila type daily. clopidogrel 2018- No History of 75mg QD Take 1 [place] (PLAVIX) 75 05-3116 ischemic tablet (75 Methodi mg tablet 00:00: 00:00 left MCA mg total) st 00 :00 stroke by mouth daily. levothyroxi 2018- No Hypothyroid 100ug QD Take 1 [place] ne 05-31 08-15 ism, tablet Methodi (SYNTHROID, 00:00: 00:00 unspecified ([address] LEVOXYL) 00 :00 type total) by 100 mcg mouth tablet every morning. sertraline 2019 No Anxiety 150 mg = [place] (ZOLOFT) 2-12 08-15 associated 1.5 tab, Methodi 100 MG 00:00: 00:00 with PO,daily st tablet 00 :00 depression gabapentin Yes 300 mg = 1 M emoria 300 MG Oral 6-01 cap, PO, l Capsule 18:08: BID, # 90 Jayna nn 00 cap, 1 Refill(s), Pharmacy: [id number] tizanidine Yes 4 mg = 1 Mem oria 4 mg oral 6-01 tab, PO, l tablet 18:08: Q8H, PRN Ki 00 for muscle spasms, # 90 tab, 0 Refill(s), Pharmacy: [id number] Docusate Yes 100 mg = 1 Mem oria Sodium 100 6-01 cap, PO, l MG Oral 18:08: BID, # 60 Jayna nn Capsule 00 cap, 1 [Colace] Refill(s), Pharmacy: [id number] Sertraline No Notes: Memor ia 09-17 (Same as: l 14:00: Zoloft) Ki 00 Omeprazole No Notes: Memor ia 6-01 Take 1 l 14:00: hour Clubb 00 before or 2 hours after meal; Non-Formul randall Drug "Do Not Crush" (Same as: Prilosec) Minoxidil No Minoxidil Mem oria 2.5 mg 09-17 2.5 mg l tablet 14:00: tablet, Clubb 00 2.5 mg, 1 tab, Drug form: MISC, Route: PO, Daily, 09/17/17 9:00:00 CDT, Duration: 30 day, Stop date: 10/16/17 9:00:00 CDT Minoxidil No 2.5 mg, Memor ia 09-17 Route: PO, l 14:00: Drug form: Clubb 00 TAB, Daily, Dosing Weight 70.455, kg, Start date: 09/17/17 9:00:00 CDT, Duration: 30 day, Stop date: 10/16/17 9:00:00 CDT meloxicam No Notes: Memori a 6- (Same as: l 14:00: Mobic) Loratadine No Notes: 1 Mem oria 6-01 hr before l 14:00: meals Clubb (Same as: Claritin) Non-formul randall item Protonix No Notes: Memoria 6- Tablet l 14:00: should not be chewed or crushed. (Same as: Protonix) Thyroxine No Notes: Memori a 6- Take 1 l 11:30: hour Clubb 00 before or 2 hours after meal; Enteral feeds may interefere with the absorption of this medication . (Same as:Levothr oid, Synthroid) metoprolol No Notes: Memor ia tartrate 09-17 (Same as: l 02:00: Lopressor) atorvastati No Notes: Gaston emma n 09-17 (Same As: l 02:00: Lipitor) Trazodone No Notes: Memori a Hydrochlori 09-17 (Same As: l de 100 MG 02:00: Desyrel) Herm christianne Oral Tablet 00 Docusate No Notes: Memoria Sodium 100 -31 (Same as: l MG Oral 22:00: Colace) Clubb Capsule 00 (Do Not Crush) telmisartan No Notes: Gaston emma 5-31 Non-Formul l 22:00: randall Drug. (Same As: Micardis) Cefazolin No Notes: Memori a 5-31 (Same As: l 21:00: Ancef, Clubb 00 Kefzol) MEDICATION WASTE Product Size: 1000 mg Product Wasted: ___ mg gabapentin No Notes: Memor ia 100 MG Oral 5-31 (Same as: l Capsule 19:00: Neurontin) Hydralazine No 5 mg, Memor ia 5-31 Route: IV, l 17:57: ONCE, Dosing Weight 70.455, kg, Start date: 09/16/17 12:57:00 CDT, Stop date: 09/16/17 12:57:00 CDT fentaNYL No Route: IV, Mem oria (ANES) 5-31 Drug form: l 17:02: INJ, ONCE, Ki 00 Stop date: 09/16/17 12:02:00 CDT Ancef + No Notes: Memoria Sodium 5-31 (Same As: l Chloride 17:00: Ancef, Ki 0.9% IV 100 00 Kefzol) mL MEDICATION WASTE Product Size: 1000 mg Product Wasted: ___ mg ondansetron No Route: IV, Memoria (ANES) 5-31 Drug form: l 16:44: INJ, ONCE, Ki 00 Stop date: 09/16/17 11:44:00 CDT Acetaminoph No Notes: Do M emoria en 5-31 not exceed l 16:34: 4 gm/day. Clubb (Same as: Tylenol) Lactated No 1,000 mL, Gaston emma Ringers IV - Rate: 75 l 1,000 mL 16:34: ml/hr, Clubb 00 Infuse over: 13.3 hr, Route: IV, Dosing Weight 70.455 kg, Total Volume: 1,000, Start date: 09/16/17 11:34:00 CDT, Duration: 30 day, Stop date: 10/16/17 11:33:00 CDT, 1.85, m2 Acetaminoph No Notes: Do M emoria en 325 MG / 5-31 not exceed l Hydrocodone 16:34: 4gm/day of Clubb Bitartrate 00 acetaminop 10 MG Oral hen. Tablet (Same as: [place] 325/10) Aluminum No Notes: Memoria Hydroxide 5-31 (aluminum l 40 MG/ML / 16:34: hydroxide- H ermann Magnesium 00 magnesium Hydroxide hyd- 40 MG/ML / simethicon Simethicone e 4 MG/ML 400-400-40 Oral mg/5ml 30 Suspension ml ud RILEY) Dulcolax No Notes: Memoria Laxative 5-31 (Same As: l 16:34: Dulcolax, Ki 00 Correctol) (Do Not Crush) "Do Not Crush" Morphine No Notes: Memoria 5-31 (Same l 16:34: as:MORPhin e Sulfate) Ondansetron No Notes: Gaston emma 5-31 (Same as: l 16:34: Zofran ODT) Diphenhydra No Notes: Agston emma mine -31 (Same as: l 16:34: Benadryl) Naloxone No Notes: Memoria 5- Same as l 16:34: Narcan Hydromorpho No Notes: Gaston emma ne - (Same as: l 16:34: Dilaudid) conc = 0.5 mg/ml Hydromorph one SILVERER Dose: ;Delay: ;Basal: dexamethaso No Route: IV, Memoria ne (ANES) 09-16 Drug form: l 16:16: INJ, ONCE, Stop date: 09/16/17 11:16:00 CDT phenylephri No Route: IV, Memoria ne (ANES) 09-16 Drug form: l 15:46: INJ, ONCE, Stop date: 09/16/17 10:46:00 CDT acetaminoph No Route: IV, Memoria en (ANES) 09-16 Drug form: l 10 mg 15:33: INJ, Start William n date: 09/16/17 10:33:00 CDT, Stop date: 09/16/17 11:33:00 CDT rocuronium No Route: IV, M emoria (ANES) - Drug form: l 15:26: INJ, ONCE, Stop date: 09/16/17 10:26:00 CDT ePHEDrine No Route: IV, Me moria (ANES) 5- Drug form: l 15:21: INJ, ONCE, Stop date: 09/16/17 10:21:00 CDT niCARdipine No Route: IV, Memoria (ANES) 5- Drug form: l 14:41: INJ, ONCE, Stop date: 09/16/17 9:41:00 CDT niCARdipine No Route: IV, Memoria (ANES) 09-16 Drug form: l 14:21: INJ, ONCE, Stop date: 09/16/17 9:21:00 CDT ePHEDrine No Route: IV, Me moria (ANES) 09-16 Drug form: l 14:12: INJ, ONCE, Stop date: 09/16/17 9:12:00 CDT rocuronium No Route: IV, M emoria (ANES) 09-16 Drug form: l 14:11: INJ, ONCE, Stop date: 09/16/17 9:11:00 CDT propofol No Route: IV, Mem oria (ANES) 09-16 Drug form: l 14:11: INJ, ONCE, Stop date: 09/16/17 9:11:00 CDT succinylcho No Route: IV, Memoria line (ANES) 09-16 Drug form: l 14:11: INJ, ONCE, Stop date: 09/16/17 9:11:00 CDT fentaNYL No Route: IV, Mem oria (ANES) 09-16 Drug form: l 14:11: INJ, ONCE, Stop date: 09/16/17 9:11:00 CDT lidocaine No Route: IV, Me moria (ANES) 09-16 Drug form: l 14:11: INJ, ONCE, Stop date: 09/16/17 9:11:00 CDT ceFAZolin No Route: IV, Me moria (ANES) 09-16 Drug form: l 14:06: INJ, ONCE, Stop date: 09/16/17 9:06:00 CDT phenylephri No Route: IV, Memoria ne (ANES) 09-16 Drug form: l 13:55: INJ, ONCE, Stop date: 09/16/17 8:55:00 CDT Zofran ODT No Notes: Memor ia 09-16 (Same as: l 13:25: Zofran ODT) propofol No Route: IV, Mem oria (ANES) 10 09-16 Drug form: l mg 13:22: INJ, Start Clubb date: 09/16/17 8:22:00 CDT, Stop date: 09/16/17 9:22:00 CDT Dexamethaso No Notes: Gaston emma ne 09-16 Concentrat l 13:17: ion: Ki 00 4mg/ml Ondansetron No Notes: Gaston emma 09-16 (Same as: l 13:17: Zofran) MEDICATION WASTE Product Size: 4 mg Product Wasted: ___ mg Naloxone No Notes: Memoria 09-16 Same as l 13:17: Narcan Flumazenil No Notes: Memor ia 09-16 (Same as: l 13:17: Romazicon) Oxycodone No Notes: Memori a 09-16 (Same as: l 13:17: Roxicodone ) Hydromorpho No Notes: Gaston emma ne 09-16 Same as l 13:17: Dilaudid Morphine No Notes: Memoria 09-16 (Same l 13:17: as:MORPhin e Sulfate) Acetaminoph No Notes: Max Memoria en 09-16 acetaminop l 13:17: hen 4000 mg/day (4 gm/day). (Same as: Tylenol Extra Strength) Labetalol No 10 mg, 2 Gaston emma 09-16 mL, Route: l 13:17: IVP, Drug form: INJ, Q5Min, Dosing Weight 70.455, kg, PRN Elevated BP, Start date: 09/16/17 8:17:00 CDT, Duration: 5 doses or times, Stop date: 09/16/17 17:00:00 CDT Lactated No Route: IV, Mem oria Ringers 09-16 Total l Injection 12:45: Volume: Jayna nn IV (ANES) 00 1,000, 1000 mL Start date: 09/16/17 7:45:00 CDT, Stop date: 09/16/17 8:45:00 CDT Cefazolin No Notes: Memori a 5-31 Same as: l 11:11: Ancef Ki 00 Trazodone 2017-0 Yes 50 mg = Memor ia Hydrochlori 5-11 0.5 tab, l de 100 MG 17:16: PO, Clubb Oral Tablet 00 Bedtime, # 30 tab, 1 Refill(s) telmisartan 2017-0 Yes 80 mg = 1 M emoria 80 mg oral 5-11 tab, PO, l tablet 17:15: QPM, # 30 William n 00 tab, 3 Refill(s) solifenacin 2017- Yes 10 mg = 1 M emoria 10 mg oral 5-11 tab, PO, l tablet 17:08: Daily, # Clubb 00 30 tab, 1 Refill(s) sertraline 2017- Yes 150 mg = Mem oria 100 mg oral 5-11 1.5 tab, l tablet 17:08: PO, Daily, Jayna nn 00 # 30 tab, 0 Refill(s) omeprazole Yes 40 mg = 1 Me moria 40 mg oral 5-11 cap, PO, l delayed 17:08: Daily, Ki release 00 take DOS, capsule # 30 cap, 0 Refill(s) minoxidil 2017-0 Yes 2.5 mg = 1 Me moria 2.5 mg oral 5-11 tab, PO, l tablet 17:07: Daily, # Ki 00 180 tab, 3 Refill(s) metoprolol 2017-0 Yes 50 mg = 1 Me moria 50 mg oral 5-11 tab, PO, l tablet, 17:07: BID, take Jayna nn extended 00 DOS, # 30 release tab, 0 Refill(s) meloxicam 2017-0 Yes 15 mg = 1 Mem oria 15 mg oral 5-11 tab, PO, l tablet 17:07: Daily, # Clubb 00 30 tab, 0 Refill(s) levothyroxi 2017-0 Yes 100 Memori a ne 100 mcg 5-11 microgram l (0.1 mg) 17:06: = 1 tab, Jayna nn oral tablet 00 PO, Daily, take DOS, # 60 tab, 0 Refill(s) Levofloxaci No 500 mg = 1 Memoria n 500 MG 5-11 tab, PO, l Oral Tablet 17:06: Q24H, # 10 Ki [Levaquin] 00 tab, 0 Refill(s) loratadine 2018- Yes 10 mg = 1 Me moria 10 mg oral 5-11 tab, PO, l tablet 17:06: Daily, # Clubb 00 10 tab, 0 Refill(s) gabapentin 0 Yes 100 mg = 1 M emoria 100 MG Oral 5-11 cap, PO, l Capsule 17:05: TID, # 90 Jayna nn 00 cap, 1 Refill(s) Vitamin D2 Yes 50,000 Memor ia 50,000 intl 5-11 IntlUnit = l units oral 17:05: 1 cap, PO, H ermann capsule 00 qWeek, # 24 cap, 0 Refill(s) clopidogrel No 75 mg = 1 M emoria 75 mg oral 5-11 tab, PO, l tablet 17:05: Daily, # Clubb 00 30 tab, 0 Refill(s) atorvastati Yes 40 mg = 1 M emoria n 40 mg 5-11 tab, PO, l oral tablet 17:05: Bedtime, # Clubb 00 30 tab, 0 Refill(s) ergocalcife 2016-04 2020- No Vitamin D 19004L Q7D Take 1 [facility] 05-25 deficiency capsule Metho di (VITAMIN 00:00: 00:00 (50,000 st D2) 50,000 00 :00 Units unit total) by capsule mouth once a week. Immunizations Ordered Immunization Filled Immunization Date Status Commen ts Source Name Name FLUZONE HIGH-DOSE PF 2019-02-20 Completed [place] 00[place]00 [facility] Pneumococcal 2018-07-29 Completed [place] Polysaccharide 00:00:00 [facility] FLUZONE QUAD 2018-01-17 Completed [place] INTRADERMAL PF 00:00:00 [facility] FLUZONE HIGH-DOSE PF 2017-03-24 Completed [place] 00:00:00 [facility] Pneumococcal 2016-08-06 Completed [place] Conjugate 13-Valent 00:00:00 [facility] FLUZONE HIGH-DOSE PF 2016-02-21 Completed [place] 00:00:00 [facility] Pneumococcal, 2004-08-21 Completed [place] Unspecified 00:00:00 [facility] Vital Signs Vital Name Observation Time Observation Value Comments Source Systolic blood 2019-09-21 11:27:00 132 mm[Hg] Ameto n [facility] pressure Diastolic blood 2019-09-21 11:27:00 51 mm[Hg] Amet on [facility] pressure Heart rate 2019-09-21 11:27:00 55 /min [place] [facility] Body temperature 2019-09-21 11:27:00 36.67 Miya [place] [facility] Respiratory rate 2019-09-21 11:27:00 17 /min [place] [facility] Body height 2019-09-21 11:27:00 172.7 cm [place] [facility] Body weight 2019-09-21 11:27:00 66.225 kg [place] [facility] BMI 2019-09-21 11:27:00 22.20 kg/m2 [place] [facility] Oxygen saturation in 2019-09-21 11:27:00 97 /min [place] [facility] Arterial blood by Pulse oximetry Heart Rate 2017-09-17 15:15:00 [facility] Temperature Oral (F) 2017-09-17 15:15:00 98.8 F [facility] Systolic (mm Hg) 2017-09-17 15:15:00 Gaston rial Ki Diastolic (mm Hg) 2017-09-17 15:15:00 Mem orial Ki Heart Rate 2017-09-17 13:48:00 [facility] Systolic (mm Hg) 2017-09-17 13:48:00 Gaston rial Ki Diastolic (mm Hg) 2017-09-17 13:48:00 Mem orial Clubb Heart Rate 2017-09-17 11:50:00 [facility] Systolic (mm Hg) 2017-09-17 11:50:00 Gaston rial Ki Diastolic (mm Hg) 2017-09-17 11:50:00 Mem orial [facility] Respitory Rate 2017-09-17 11:50:00 Memori al Clubb Temperature Oral (F) 2017-09-17 11:50:00 98.5 F [facility] Ki Respitory Rate 2017-09-17 08:45:00 Memori al Clubb Temperature Oral (F) 2017-09-17 08:45:00 98.4 F [facility] Respitory Rate 2017-09-17 04:15:00 Memori al Ki Height 2017-09-16 11:16:00 172.72 cm [facility] Weight 2017-09-16 11:16:00 [facility] BMI Calculated 2017-09-16 11:16:00 [facility] Calculated 2017-08-27 17:19:[address] [facility] Weight 2017-08-27 17:19:00 [facility] Height 2017-08-26 18:24:00 172.72 cm [facility] Procedures Procedure Date / Time Performed Performing Clinician Shant e [facility] 2019-09-29 00:00:00 ProviderOseas [facility] URINALYSIS 2019-08-31 00:00:00 Rhett Blackwell [place] BASIC METABOLIC PANEL 2019-04-26 11:29:00 Rhett Blackwell n [facility] HEMOGLOBIN A1C 2019-04-26 11:29:00 Rhett Blackwell [place] HEPATIC FUNCTION PANEL 2019-04-26 11:29:00 Rhett Blackwell on [facility] HEPATITIS C ANTIBODY 2019-04-26 11:29:00 Rhett Blackwell LIPID PANEL 2019-04-26 11:29:00 Rhett Blackwell MICROALBUMIN / CREATININE 2019-04-26 11:29:00 Rhett Blackwell URINE RATIO T4, FREE 2019-04-26 11:29:00 Rhett Blackwell THYROID STIMULATING 2019-04-26 11:29:00 Rhett Blackwell HORMONE URINALYSIS, AUTOMATED 2019-04-26 11:29:00 Rhett Blackwell [facility] WITH MICROSCOPY URIC ACID LEVEL 2019-04-26 11:29:00 Rhett Blackwell Cataract extraction and [facility] insertion of intraocular lens Hysterectomy [facility] ORIF - Open reduction [facility] internal fixation of fracture Spinal fusion [facility] Suspension of bladder [facility] Plan of Care Planned Activity Planned Date Details Comments Source Future Scheduled 2019-11-18 INFLUENZA VACCINE [place] [facility] Test 00:00:00 [code = INFLUENZA VACCINE] Future Scheduled 1985-06-25 SHINGLES VACCINES [place] [facility] Test 00:00:00 (#1) [code = SHINGLES VACCINES (#1)] Encounters Start End Encounter Admission Attending Care Care Encounter Source Date/Time Date/Time Type Type Clinicians Facility Department ID 2019-09-21 2019-09-21 [facility] [id number] [place] 00:00:00 00:00:00 BRANKA [address] 2017-09-16 2017-09-17 Outpatient Tc [facility] [id number] 05:33:00 13:53:00 , Caden 02 2017-08-11 2017-08-11 Outpatient Tc [id number]. [id number] 12:20:00 23:59:00 , Caden [id number] 5.35 2017-07-23 2017-07-23 Outpatient Tc [facility] [id number] 11:07:00 23:59:00 , Caden 00 Results Test Description Test Time Test Comments Results Result Comments Source Basic metabolic panel 2019-04-27 21:03:00 Test Item Value Reference Range Interpretation Comme nts Glucose (test code = 91 mg/dL 65-99 Fasting 2345-7) reference inter pa BUN (test code = 15 mg/dL 11-10 3094-0) Creatinine (test code = 0.97 mg/dL 0.6-0.88 H For patients >49 years of 2160-0) age, the refere nce limitfor Creati nine is approximately 1 3% higher for peopleident ified as -Ayana n. EGFR Non-Afr. Finnish 54 > OR = 60 L (test code = 2775) mL/min/1.73m2 EGFR 63 > OR = 60 (test code = 29921-2) mL/min/1.73m2 BUN/creatinine ratio 15 6- 22 (calc) (test code = 3097-3) Sodium (test code = 143 mmol/L 702-064 6935-2) Potassium (test code = 4.4 mmol/L 3.5-5.3 2823-3) Chloride (test code = 104 mmol/L 98-110 2075-0) CO2 (test code = 29 mmol/L 20-32 8-9) Calcium (test code = 10.1 mg/dL 8.6-10.4 15848-0) RAC (test code = RAC) Performing Organization Information: Site ID: RGA [facility] Address: [address] [place] [phone] Director: Julien Johnson Lab Interpretation Abnormal (test code = 37881-4) [place] [facility] [id number] 21:03:00 Test Item Value Reference Range Interpretation Comments Cholesterol, total 135 mg/dL <200 (test code = 2093-3) HDL cholesterol 68 mg/dL >50 (test code = 2085-9) Triglycerides (test 132 mg/dL <150 code = 2571-8) LDL cholesterol 45 mg/dL (calc) Reference ra nge: calculated (test <100 Desira ble code = 64545-8) range <100 m g/dL for primary prevention; <7 0 mg/dL for patients with C HD or diabetic patients with > or = 2 CHD risk factors. LDL-C is now calculated using the Tristen-Maribel calculation, which is a validated novel method providin g better accuracy than the Friedewald equation in the estimation of LDL-C. Tristen Izquierdo S et al. SHANE. 2013;310(19): 8431-4979 (http://educati on .[employer] .com/faq/YHZ791 ) Cholesterol/HDL 2.0 <5.0 (calc) ratio (test code = 9830-1) Non-HDL cholesterol 67 <130 mg/dL For maira ents with (test code = (calc) diabetes plus 1 47986-5) major ASCVD ris k factor, treatin g to a non-HDL-C goal of <100 mg/dL (LDL-C of <70 mg/dL) is considered a therapeutic option. RAC (test code = Performing RAC) Organization Information: Site ID: RGA Name: [facility] Lab Address: [address] [place] [phone] Director: Julien Johnson [place] MethodistHepatic function [id number] 21:03:00 Test Item Value Reference Range Interpretation Comments Protein (test code = 6.9 g/dL 6.1-8.1 2885-2) Albumin, S (test code 4.3 g/dL 3.6-5.1 = 1751-7) Globulin, total (test 2.6 1.9- 3.7 g/dL code = 03822-3) (calc) Albumin/globulin 1.7 1.0- 2.5 (calc) ratio (test code = 1759-0) Total bilirubin (test 0.5 mg/dL 0.2-1.2 code = 1974-) Bilirubin direct 0.1 mg/dL < OR = 0.2 (test code = 1967-7) Bilirubin, indirect 0.4 0.2- 1.2 mg/dL (test code = 1970-) (calc) Alkaline phosphatase 78 U/L 33-130 (test code = 6768-6) AST (test code = 16 U/L 10-35 1920-8) ALT (test code = 14 U/L 6-29 1742-6) RAC (test code = RAC) Performing Organization Information: Site ID: RGA [facility] Address: [address] [place] [phone] Director: Julien Johnson [place] MethodistHemoglobin [id number] 21:03:00 Test Item Value Reference Range Interpretation Comments Hemoglobin A1C 5.5 <5.7 % of total For the pu rpose of (test code = Hgb screening for t he 4548-4) presence ofdiab etes: <5.7% Consistent with the absence of diabetes5.7-6.4 % Consistent with increased risk for diabetes (prediabetes)> or =6.5% Consiste nt with diabetes T his assay result is consistent with a decreased risko f diabetes. Curre ntly, no consensus ex ists regarding use ofhemoglobin A1 c for diagnosis of di abetes in children. According to [place] Diabetes Associ ation (ADA)guidelines , hemoglobin A1c <7.0% represents optimalcontrol in non- di abetic patients. Differentmetric s may apply to specif ic patient populat ions. Standards of Me dical Care in Diabetes(ADA). RAC (test code = Performing RAC) Organization Information: Site ID: RGA Name: [facility] Address: [address] [place] [address] Director: Julien [place] MethodistT4, [id number] 21:03:00 Test Item Value Reference Range Interpretation Comments T4, free (test code 1.3 ng/dL 0.8-1.8 = 3024-7) RAC (test code = Performing Organization RAC) Information: Site ID: RGA Name: [facility] Lab Address: [address] [place] [phone] Director: Julien Johnson [place] MethodistThyroid stimulating [id number] 21:03:00 Test Item Value Reference Range Interpretation Comments TSH (test code = 1.81 0.40- 4.50 mIU/L 3016-3) RAC (test code = Performing Organization RAC) Information: Site ID: RGA Name: [facility] Lab Address: [address] [place] [phone] Director: Julien [place] MethodistUric acid [id number] 21:03:00 Test Item Value Reference Range Interpretation Comments Uric acid 5.2 mg/dL 2.5-7 Therapeutic tar get (test code = for gout patien ts: 3084-1) <6.0 mg/dL RAC (test Performing code = RAC) Organization Information: Site ID: RGA Name: [facility] Lab Address: [address] [place] [phone] Director: Julien Johnson [place] MethodistUrinalysis, automated with [id number] 21:03:00 Test Item Value Reference Range Interpretation Comments Color, UA (test code = YELLOW YELLOW 5778-6) Appearance (test code = CLOUDY CLEAR A 5767-9) Specific gravity, urine 1.016 1.001-1.035 (test code = 5811-5) pH, urine (test code = 5.5 5.0-8.0 5803-2) Glucose, urine (test NEGATIVE NEGATIVE code = 70520-3) Bilirubin, UA (test code NEGATIVE NEGATIVE = 5770-3) Ketones, UA (test code = NEGATIVE NEGATIVE 2604-8) Occult blood, urine NEGATIVE NEGATIVE (test code = 5794-3) Protein, UA (test code = NEGATIVE NEGATIVE 26944-3) Nitrite, UA (test code = NEGATIVE NEGATIVE 5802-4) Leukocyte esterase, UA 2+ NEGATIVE A (test code = 5799-2) WBC, UA (test code = 10-20 < OR = 5 /HPF A 5821-4) RBC, UA (test code = NONE SEEN < OR = 2 /HPF 91667-4) Squamous epithelial 0-5 < OR = 5 /HPF cells, UA (test code = 84898-4) Bacteria, UA (test code MANY NONE SEEN /HPF A = 5769-5) Hyaline casts, UA (test NONE SEEN NONE SEEN /LPF code = 5796-8) RAC (test code = RAC) Performing Organization Information: Site ID: A Name[facility] Address: [address] [place] [phone] Director: Julien Johnson Lab Interpretation (test Abnormal code = 46811-0) [place] MethodistMicroalbumin / creatinine urine [id number] 21:03:00 Test Item Value Reference Interpretation Comments Range Creatinine, urine, 107 mg/dL 20-275 random (test code = 2161-8) Microalbumin, urine 3.3 mg/dL See Note: Referenc e (test code = Range:Reference 31361-2) RangeNot establ ished Microalbumin/creati 31 <30 mcg/mg H The ADA defines nine ratio (test creat abnormaliti es in code = 9318-7) albuminexcret ion as follows: Catego ry Result (mc g/mg creatinine) Nor mal <30Microalbumin uria 30-299 Clinical albumi dayana > OR = 300 Th e ADA recommends that at least two of threespecimens collected withi n a 3-6 month perio d beabnormal befo re considering a patient to bewi thin a diagnostic category. RAC (test code = Performing RAC) Organization Information: Site ID: A Name: [facility] Address: [address] [place] [phone] Director: Julien Johnson Lab Interpretation Abnormal (test code = 93852-0) [place] [facility]Hepatitis C [id number] 21:03:00 Test Item Value Reference Range Interpretation Comments Hepatitis C Ab NON-REACTIVE NON-REACTIVE (test code = 22092-0) Signal/cutoff 0.01 <1.00 HCV antibody was (test code = non-reactive. 77321-9) There is no laboratory evidence of HCV infection. In m ost cases, no furth er action is required. However,if rece nt HCV exposure is suspected, a te st for HCV RNA(edgar t code 14069) is suggested. For additional information ple ase refer tohttp://educat ion .[employer]. [facility]/faq/UTJ76o9 (Th is link is jac jolly provided for informational/e odell ational purpose s only.) RAC (test code = Performing RAC) Organization Information: Site ID: RGA [facility] Address: [address] [place] [phone] Director: Julien Johnson [place] MethodistCHEM [id number] 08:44:008.4[facility] HermannCHEM PANEL 2017-09-17 08:44:0028[facility] HermannCHEM [id number] 08:44:04226Mfranepv HermannCHEM [id number] 08:44:000.96[facility] HermannCHEM [id number] 08:44:0019[facility] HermannCHEM [id number] 08:44:0055[facility] HermannCHEM [id number] 08:44:004.1[facility] HermannCHEM [id number] 08:44:75053 [facility] HermannCHEM [id number] 08:44:18469Rgvvialk HermannCHEM PANEL 2017-09-17 08:44:0010.1[facility] HrwzdmaGEMDPIALFH7225-77-00 08:44:009.5[facility] ZowpkbcQPFAPCZQKN8935-60-69 08:44:0028.2[facility] HermannBLOOD BANK RESULTS 2017-09-16 11:10:00Negative (09/16/17 6:10 AM)[facility] whereIstand.comannBLOOD BANK RESULTS 2017-09-16 10:00:00Product available (09/16/17 5:00 AM)[facility]annBLOOD BANK [id number] 17:50:00Negative (08/27/17 12:50 PM)[facility] HermannCHEM PANEL 2017-08-27 17:50:0061[facility] HermannCHEM [id number] 17:50:0019[facility] HermannCHEM [id number] 17:50:0067[facility] HermannCHEM [id number] 17:50:0019[facility] HermannCHEM [id number] 17:50:000.7[facility] HermannCHEM [id number] 17:50:003.7[facility] HermannCHEM [id number] 17:50:0086 [facility] HermannCHEM [id number] 17:50:98362Homhzcyj HermannCHEM PANEL 2017-08-27 17:50:004.2[facility] HermannCHEM [id number] 17:50:000.88[facility] HermannCHEM [id number] 17:50:0014[facility] HermannCHEM [id number] 17:50:008.7[facility] HermannCHEM [id number] 17:50:0030[facility] HermannCHEM [id number] 17:50:006.6[facility] HermannCHEM [id number] 17:50:92525 [facility] HermannCHEM [id number] 17:50:00 Test Item Value Reference Range Interpretation Comments B/C Ratio (test code = B/C Ratio) 16 1 6-25 [facility] HermannCHEM [id number] 17:50:002.9[facility] HermannCHEM PANEL 2017-08-27 17:50:0011.2[facility] HermannCHEM [id number] 17:50:00 Test Item Value Reference Range Interpretation Comments A/G Ratio (test code = A/G Ratio) 1.3 1 0.7-1.6 Memorial YvrcbxeJHESWGMQHY7532-79-17 17:50:000.6[facility] HermannHEMATOLOGY 2017-08-27 17:50:0066.3[facility] QzaslhsIWGVXTIDCC1314-70-99 17:50:003.4[facility] OlwqltoQCPMAAUHKV2374-43-51 17:50:0023.1[facility] KskzstmXCSQLMRRKE7851-77-30 17:50:006.6[facility] MyoxgmiIMPHYIKIUB7823-32-55 17:50:000.2[facility] Clubb MCMLCFTMFH9340-62-86 17:50:000.4[facility] FsfdvzrEAXYNFLMFH5578-29-07 17:50:001.4 [facility] [id number] 17:50:004.0[facility] HermannHEMATOLOGY 2017-08-27 17:50:00 Test Item Value Reference Range Interpretation Comments INR (test code = INR) 1.02 1 0.85-1.17 [facility] [id number] 17:50:00 Test Item Value Reference Range Interpretation Comments PROTIME (test code = PROTIME) 13.4 s 12.0-14.7 Memorial [id number] 17:50:00 Test Item Value Reference Range Interpretation Comments aPTT (test code = aPTT) 28.3 s 22.9-35.8 [facility] NcjdesvAMFFHKFQKU5530-66-26 17:50:0037.2[facility] HermannHEMATOLOGY 2017-08-27 17:50:0079.3[facility] [id number] 17:50:00 Test Item Value Reference Range Interpretation Comments MCH (test code = MCH) 26.5 pg 27.0-31.0 [facility] ZwevedbVDUVTERMAI4509-00-73 17:50:0033.4[facility] HermannHEMATOLOGY 2017-08-27 17:50:97480Byauxryn DyiduldKLWINVZVDZ6692-54-98 17:50:0013.6[facility] DeeuxqsCPNBSGZDRT0751-81-21 17:50:009.3[facility] IqopuniXXYWLTWUSQ5921-69-58 17:50:006.0[facility] BnlwwnmDMRPNSREDS6679-70-01 17:50:004.69[facility] Ki EJRBRXLSAK2651-64-16 17:50:0012.4[facility] HermannURINE AND [id number] 17:50:00Clear (08/27/17 12:50 PM)[facility] AND [id number] 17:50:00Yellow *NA*(08/27/17 12:50 PM)[facility] AND [id number] 17:50:00Negative (08/27/17 12:50 PM)[facility] AND [id number] 17:50:00Negative *NA*(08/27/17 12:50 PM)[facility] [id number] 17:50:00 Test Item Value Reference Range Interpretation Comments UA Spec Grav (test code = UA Spec 1.010 1 Grav) [facility] AND [id number] 17:50:00 Test Item Value Reference Range Interpretation Comments UA pH (test code = UA pH) 6.0 1 5.0-8.0 [facility] [id number] 17:50:00Negative (08/27/17 12:50 PM) [facility] [id number] 17:50:000.2[facility] AND [id number] 17:50:00Negative (08/27/17 12:50 PM)[facility] [id number] 17:50:00None Seen (08/27/17 12:50 PM)[facility] AND [id number] 17:50:00None Seen (08/27/17 12:50 PM)[facility] Ki
--- NOTE | 2019-10-18 20:25 | RAD REPORT ---
EXAM DESCRIPTION: CT - [id number] - 10/18/2019 7:36 pm CLINICAL HISTORY: Pain;Swelling, fall with head and neck injury COMPARISON: Head Brain Wo Cont dated 12/20/2017; Head Brain Wo Cont dated 01/07/2018; Stroke Protocol d ated 04/27/2017 TECHNIQUE: Axial 5 mm thick images of the head were obtained. Axial 2 mm thick images of the cervic al spine were obtained with sagittal and coronal reconstruction images generated and reviewed. All CT scans are performed using dose optimization technique as appropriate and may include automated exposure control or mA/KV adjustment according to patient size. FINDINGS: No intracranial hemorrhage, mass, edema or acute intracranial finding. No suspicion for ac [place] infarction. No cortical edema or sulcal effacement. Patient has moderate severity atrophy and chr onic ischemic change. Ventricles are in proportion to volume loss. Arterial and physiologic calcifica tions are present. Mastoid air cells and paranasal sinuses are clear. No globe or orbit abnormality s een. Moderately large scalp hematoma is present over the left temporal and lateral orbital ridge. Und erlying bone is intact. Cervical bodies are normal in height. No fracture changes identifiable. Occipital condyles are normal ly positioned relative to the lateral masses of C1. Prominent ligamentous thickening and calcificatio n of the transverse ligament posterior to the dens noted. There is approximately 5 mm posterior displ acement of the lateral mass on the left relative to the body of C2. 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 No acute rotation abnormality. Patient has adva nced disc space narrowing C5-6 with prominent endplate spurs. Moderately severe facet degenerative ch skyler at C3-4 causes bilateral bony foraminal encroachment. There is severe facet degenerative change on the left at C4-5 with severe foraminal stenosis. There is severe right foraminal stenosis C5-6 fro m facet hypertrophy and uncovertebral joint hypertrophy. Prominent facet degenerative change noted on the left at C5-6 and C6-7. An acute vertebral body fracture is not seen. No pathologic process. Hemal tral canal detail is inherently limited. No paraspinal mass or hematoma. IMPRESSION: Moderate severity atrophy and chronic ischemic change. No acute intracranial finding. Moderately large left temporal and orbital scalp hematoma. Underlying bone is intact. Severe cervical spine degenerative changes are present as detailed. No fracture or acute finding iden tifiable. Negative CT cervical spine examination for acute or significant finding.
--- NOTE | 2019-10-18 20:39 | ER ---
Nurse's Notes [facility] Name: Alana Guevara Age: 84 yrs Sex: Female : 1935 Arrival Date: 10/18/2019 Time: 19:13 Bed 14 Private MD: Diagnosis: Laceration without foreign body of other part of head;Superficial injury of head;Fall down embankment (hill);Essential (primary) hypertension Presentation: 10/17 19:13 Chief complaint: EMS states: Pt from [facility], reports stumbling and falling when ph turning around, hit head on ground, denies LOC, large hematoma to L holiness, pt denies N/V or dizziness, does take Plavix. Coronavirus screen: Patient denies a cough. Patient denies shortness of breath or difficulty breathing. Patient denies measured and/or subjective temperature greater than 100.4F prior to today's visit. Patient denies travel on a cruise ship or to a country the [facility] currently lists as an affected area. Patient denies contact with known and/or suspected case of COVID-19. Ebola Screen: No symptoms or risks identified at this time. Initial Sepsis Screen: Does the patient meet any 2 criteria? No. Patient's initial sepsis screen is negative. Does the patient have a suspected source of infection? No. Patient's initial sepsis screen is negative. Risk Assessment: Do you want to hurt yourself or someone else? Patient reports no desire to harm self or others. Onset of symptoms was October 18, 2019. 19:13 Method Of Arrival: EMS: [facility] ph 19:13 Acuity: JAEL 2 ph 19:18 Care prior to arrival: None. Mechanism of Injury: Fall from standing position. Trauma ph event details: Injury occurred in the [facility], Injury occurred: at home. Injury occurred: October 18, 2019. Trauma Activation: Physician: ED Physician; Name: Tirso; Notified At: ; Arrived At: Physician: General Surgeon; Name: ; Notified At: ; Arrived At: Physician: Radiology; Name: ; Notified At: ; Arrived At: Physician: Respiratory; Name: ; Notified At: ; Arrived At: Physician: Lab; Name: ; Notified At: ; Arrived At: Historical: - Allergies: 19:20 meperidine HCl; ph 19:20 Nitrofurantoin Macrocrystal; ph - PMHx: 19:20 CVA; High Cholesterol; Hypertension; Hypothyroidism; TIA; ph 19:32 Dementia; per daughter; ss - PSHx: 19:20 Knee surgery; back; bladder; Appendectomy; Hysterectomy; ph - Social history:: Smoking status: Patient denies any tobacco usage or history of. Screenin:40 Abuse screen: Denies threats or abuse. Denies injuries from another. Nutritional mg2 screening: No deficits noted. Tuberculosis screening: No symptoms or risk factors identified. 20:22 Fall Risk Fall in past 12 months (25 points). mg2 Primary Survey: 19:38 NO uncontrolled hemorrhage observed. A: The patient is alert. Airway: patent, No mg2 supplemental oxygen in use on arrival. Breathing/Chest: Respiratory pattern: regular, Respiratory effort: spontaneous, unlabored, Breath sounds: clear, bilaterally. in mediastinum, right upper lobe, left upper lobe, right middle lobe, left lower lobe and right lower lobe. Circulation: Skin color: pink. Disability Alert. Exposure/Environment: All clothing and personal items were removed. Forensic evidence collection is not deemed to be indicated at this time. Items placed in patient belonging bag. There is no evidence of uncontrolled external bleeding. Obvious injury(ies) are noted at this time: bruising and laceration in the left area A warming method has been applied: A warm blanket has been provided to the patient. 20:58 Reassessment Airway Airway Patent Breathing/Chest Respiratory pattern Regular mg2 Respiratory effort Spontaneous Unlabored Circulation Color Bow Disability Alert. Secondary Survey: 19:39 HEENT: Eyes: Other bruising in the left area. Gastrointestinal: No deficits noted. : mg2 No deficits noted. Musculoskeletal: Circulation, motion, and sensation intact. Capillary refill < 3 seconds, Swelling present in left eye area. Assessment: 19:35 General: Appears in no apparent distress. comfortable, Behavior is calm, cooperative. mg2 Pain: Complains of pain in face and left holiness. Neuro: Level of Consciousness is awake, alert, obeys commands, Oriented to person, place, time, situation. EENT: bruising in the left eye area. Cardiovascular: Capillary refill < 3 seconds Patient's skin is warm and dry. Respiratory: Airway is patent Respiratory effort is even, unlabored, Respiratory pattern is regular, symmetrical. GI: No signs and/or symptoms were reported involving the gastrointestinal system. : No signs and/or symptoms were reported regarding the genitourinary system. Derm: Bruising that is dark purple, on left holiness. Musculoskeletal: Circulation, motion, and sensation intact. Capillary refill < 3 seconds. Vital Signs: 19:13 BP 232 / 123; Pulse 69; Resp 18; Temp 97.5; Pulse Ox 98% on R/A; Weight 63.5 kg; Height ph 5 ft. 8 in. (172.72 cm); 19:51 BP 204 / 60; Pulse 66; Resp 18; Pulse Ox 100% on R/A; mg2 20:21 BP 190 / 62; Pulse 71; Resp 18; Pulse Ox 99% on R/A; mg2 20:55 BP 166 / 86; Pulse 72; Resp 18; Temp 98; Pulse Ox 100% on R/A; mg2 19:13 Body Mass Index 21.29 (63.50 kg, 172.72 cm) ph [place] Coma Score: 19:25 Eye Response: spontaneous(4). Verbal Response: oriented(5). Motor Response: obeys audra commands(6). Total: 15. 19:40 Eye Response: spontaneous(4). Verbal Response: oriented(5). Motor Response: obeys mg2 commands(6). Total: 15. 19:51 Eye Response: spontaneous(4). Verbal Response: oriented(5). Motor Response: obeys mg2 commands(6). Total: 15. Trauma Score (Adult): 19:40 Eye Response: spontaneous(1); Verbal Response: oriented(1); Motor Response: obeys mg2 commands(2); Systolic BP: > 89 mm Hg(4); Respiratory Rate: 10 to 29 per min(4); Cheryl Score: 15; Trauma Score: 12 19:51 Eye Response: spontaneous(1); Verbal Response: oriented(1); Motor Response: obeys mg2 commands(2); Systolic BP: > 89 mm Hg(4); Respiratory Rate: 10 to 29 per min(4); Cheryl Score: 15; Trauma Score: 12 ED Course: 19:13 Patient arrived in ED. ph 19:13 Wiliam Chahal MD is Attending Physician. audra 19:18 Triage completed. ph 19:28 Wilber Ferguson RN is Primary Nurse. mg2 19:37 CT Head C Spine In Process Unspecified. EDMS 19:40 Patient has correct armband on for positive identification. mg2 20:21 Assist provider with laceration repair on left eyebrow area that was 2.5 cm. or less mg2 using sutures. Set up tray. Performed by Wiliam Chahal MD Dressed with band aid, Patient tolerated well. 2 sutures done under local anesthesia. Patient did not have IV access during this emergency room visit. 20:57 Patient maintains SpO2 saturation greater than 95% on room air. Thermoregulation: warm mg2 blanket given to patient. 20:58 Arm band placed on. mg2 Administered Medications: 19:51 Drug: Procardia 10 mg Route: PO; mg2 20:22 Follow up: Response: No adverse reaction mg2 19:51 Drug: cloNIDine 0.1 mg Route: PO; mg2 20:22 Follow up: Response: No adverse reaction mg2 20:10 Drug: Lidocaine-Epinephrine -1%: (1:100,000) 20 ml {Note: administered by the mg2 provider.} Volume: 20 ml; Route: Infiltration; Intake: 19:40 PO: 0ml; Total: 0ml. mg2 Outcome: 20:39 Discharge ordered by . audra 21:24 [facility]charged to [facility]. Report called to SHAQUILLE Helton mg2 21:24 Condition: stable 21:24 Instructed on discharge instructions, follow up and referral plans. Demonstrated understanding of instructions, follow-up care, medications, wound care, Prescriptions given X 1. 21:24 Patient left the ED. mg2 Signatures: Dispatcher [employer] EDCO Wiliam Chahal MD MD cha Smirch, Shelby, RN RN ss Hall, Patricia, RN RN Wilber Ferguson RN RN mg2
--- NOTE | 2019-10-18 20:39 | EDPHYS ---
Physician Documentation [facility] Name: Alana Guevara Age: 84 yrs Sex: Female : 1935 Arrival Date: 10/18/2019 Time: 19:13 Bed 14 Private MD: ED Physician Wiliam Chahla HPI: 10/17 19:24 This 84 yrs old Female presents to ER via EMS with complaints of Fall Injury. audra 19:24 Details of fall: The patient fell from an upright position, while walking. Onset: The audra symptoms/episode began/occurred just prior to arrival. Associated injuries: The patient sustained injury to the head. Severity of symptoms: At their worst the symptoms were very mild, in the emergency department the symptoms are unchanged. Unable to obtain HPI due to. The patient has experienced similar episodes in the past, a few times. Historical: - Allergies: 19:20 meperidine HCl; ph 19:20 Nitrofurantoin Macrocrystal; ph - PMHx: 19:20 CVA; High Cholesterol; Hypertension; Hypothyroidism; TIA; ph 19:32 Dementia; per daughter; ss - PSHx: 19:20 Knee surgery; back; bladder; Appendectomy; Hysterectomy; ph - Social history:: Smoking status: Patient denies any tobacco usage or history of. ROS: 19:25 Constitutional: Negative for fever, chills, and weight loss, Eyes: Negative for injury, audra pain, redness, and discharge, ENT: Negative for injury, pain, and discharge, Neck: Negative for injury, pain, and swelling, Cardiovascular: Negative for chest pain, palpitations, and edema, Respiratory: Negative for shortness of breath, cough, wheezing, and pleuritic chest pain, Abdomen/GI: Negative for abdominal pain, nausea, vomiting, diarrhea, and constipation, Back: Negative for injury and pain, : Negative for injury, bleeding, discharge, and swelling, MS/Extremity: Negative for injury and deformity, Skin: Negative for injury, rash, and discoloration, Neuro: Negative for headache, weakness, numbness, tingling, and seizure, Psych: Negative for depression, anxiety, suicide ideation, homicidal ideation, and hallucinations, Allergy/Immunology: Negative for hives, rash, and allergies, Endocrine: Negative for neck swelling, polydipsia, polyuria, polyphagia, and marked weight changes, Hematologic/Lymphatic: Negative for swollen nodes, abnormal bleeding, and unusual bruising. 19:25 Skin: Positive for hematoma, laceration(s), swelling, of the left eye and left islam. Exam: 19:25 Constitutional: This is a well developed, well nourished patient who is awake, alert, audra and in no acute distress. Eyes: Pupils equal round and reactive to light, extra-ocular motions intact. Lids and lashes normal. Conjunctiva and sclera are non-icteric and not injected. Cornea within normal limits. Periorbital areas with no swelling, redness, or edema. ENT: Nares patent. No nasal discharge, no septal abnormalities noted. Tympanic membranes are normal and external auditory canals are clear. Oropharynx with no redness, swelling, or masses, exudates, or evidence of obstruction, uvula midline. Mucous membranes moist. Neck: Trachea midline, no thyromegaly or masses palpated, and no cervical lymphadenopathy. Supple, full range of motion without nuchal rigidity, or vertebral point tenderness. No Meningismus. Chest/axilla: Normal chest wall appearance and motion. Nontender with no deformity. No lesions are appreciated. Cardiovascular: Regular rate and rhythm with a normal S1 and S2. No gallops, murmurs, or rubs. Normal PMI, no JVD. No pulse deficits. Respiratory: Lungs have equal breath sounds bilaterally, clear to auscultation and percussion. No rales, rhonchi or wheezes noted. No increased work of breathing, no retractions or nasal flaring. Abdomen/GI: Soft, non-tender, with normal bowel sounds. No distension or tympany. No guarding or rebound. No evidence of tenderness throughout. Back: No spinal tenderness. No costovertebral tenderness. Full range of motion. Female : Normal external genitalia. Skin: Warm, dry with normal turgor. Normal color with no rashes, no lesions, and no evidence of cellulitis. MS/ Extremity: Pulses equal, no cyanosis. Neurovascular intact. Full, normal range of motion. Neuro: Awake and alert, GCS 15, oriented to person, place, time, and situation. Cranial nerves II-XII grossly intact. Motor strength 5/5 in all extremities. Sensory grossly intact. Cerebellar exam normal. Normal gait. Psych: Awake, alert, with orientation to person, place and time. Behavior, mood, and affect are within normal limits. 19:25 Head/face: Noted is contusion, hematoma, a laceration(s), that is deep, 1 cm(s), swelling. Vital Signs: 19:13 BP 232 / 123; Pulse 69; Resp 18; Temp 97.5; Pulse Ox 98% on R/A; Weight 63.5 kg; Height ph 5 ft. 8 in. (172.72 cm); 19:51 BP 204 / 60; Pulse 66; Resp 18; Pulse Ox 100% on R/A; mg2 20:21 BP 190 / 62; Pulse 71; Resp 18; Pulse Ox 99% on R/A; mg2 20:55 BP 166 / 86; Pulse 72; Resp 18; Temp 98; Pulse Ox 100% on R/A; mg2 19:13 Body Mass Index 21.29 (63.50 kg, 172.72 cm) ph Cheryl Coma Score: 19:25 Eye Response: spontaneous(4). Verbal Response: oriented(5). Motor Response: obeys audra commands(6). Total: 15. 19:40 Eye Response: spontaneous(4). Verbal Response: oriented(5). Motor Response: obeys mg2 commands(6). Total: 15. 19:51 Eye Response: spontaneous(4). Verbal Response: oriented(5). Motor Response: obeys mg2 commands(6). Total: 15. Trauma Score (Adult): 19:40 Eye Response: spontaneous(1); Verbal Response: oriented(1); Motor Response: obeys mg2 commands(2); Systolic BP: > 89 mm Hg(4); Respiratory Rate: 10 to 29 per min(4); [place] Score: 15; Trauma Score: 12 19:51 Eye Response: spontaneous(1); Verbal Response: oriented(1); Motor Response: obeys mg2 commands(2); Systolic BP: > 89 mm Hg(4); Respiratory Rate: 10 to 29 per min(4); Cheryl Score: 15; Trauma Score: 12 Laceration: 19:25 Wound Repair of 2.5cm ( 1.0in ) subcutaneous laceration to left eye and left islam. audra Linear shaped.. Distal neuro/vascular/tendon intact. Anesthesia: Local anesthetic administered with 3 mls of 1% lidocaine w/ Epi. Wound prep: Simple cleansing by me. Skin closed with 2 5-0 Prolene using interrupted sutures and sterile technique. Dressed with Neosporin. Patient tolerated well. MDM: 19:13 Patient medically screened. [facility] 19:25 Differential diagnosis: Contusion of Hematoma on Laceration of Intracranial bleed- [facility] Concussion without LOC. cerebral contusion. Differential diagnosis: abrasion, closed head injury, contusion, fracture, laceration. Data interpreted: playground monitor: rate is 69 beats/min, Pulse oximetry: on room air is 98 %. 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 19:34 Data reviewed: vital signs, nurses notes, radiologic studies, CT scan. [facility] 20:21 ED course: no loc, pt at baseline, uses a walker, no dorantes, no n/v, head percautions audra givem, will follow up. 20:37 ED course: td utd. [facility] 10/17 19:24 Order name: CT Head C Spine; Complete Time: 20:38 [facility] 10/17 20:03 Order name: Ice pack; Complete Time: 20:04 [facility] 10/17 20:37 Order name: Vital Signs [facility] Administered Medications: 19:51 Drug: Procardia 10 mg Route: PO; mg2 20:22 Follow up: Response: No adverse reaction mg2 19:51 Drug: cloNIDine 0.1 mg Route: PO; mg2 20:22 Follow up: Response: No adverse reaction mg2 20:10 Drug: Lidocaine-Epinephrine -1%: (1:100,000) 20 ml {Note: administered by the [facility] provider.} Volume: 20 ml; Route: Infiltration; Disposition: 10/18/19 20:39 Discharged to Home. Impression: Laceration without foreign body of other part of head, Superficial injury of head, Fall down embankment (hill), Essential (primary) hypertension. - Condition is Stable. - Discharge Instructions: Head Injury, Adult, Hypertension, Facial Laceration, Hypertension, [id number], Facial Laceration, [id number], Head Injury, Adult, [id number]. - Prescriptions for Keflex 500 mg Oral Capsule - take 1 capsule by ORAL route every 8 hours for 7 days; 21 capsule. - Medication Reconciliation Form, Thank You Letter, Antibiotic Education, Prescription Opioid Use form. - Follow up: Private Physician; When: 2 - 3 days; Reason: Recheck today's complaints, Continuance of care, Re-evaluation by your physician. - Problem is new. - Symptoms have improved. Signatures: Dispatcher [employer] EDND Wiliam Chahal MD MD cha Smirch, Shelby, RN RN Ivonne Huitron RN RN Wilber Ferguson RN RN mg2 Corrections: (The following items were deleted from the chart) 21:24 20:39 10/18/2019 20:39 Discharged to Home. Impression: Laceration without foreign body mg2 of other part of head; Superficial injury of head; Fall down embankment (hill); Essential (primary) hypertension. Condition is Stable. Discharge Instructions: Head Injury, Adult, Hypertension, Facial Laceration, Hypertension, [id number], Facial Laceration, [id number], Head Injury, Adult, [id number]. Prescriptions for Keflex 500 mg Oral Capsule - take 1 capsule by ORAL route every 8 hours for 7 days; 21 capsule. and Forms are Medication Reconciliation Form, Thank You Letter, Antibiotic Education, Prescription Opioid Use. Follow up: Private Physician; When: 2 - 3 days; Reason: Recheck today's complaints, Continuance of care, Re-evaluation by your physician. Problem is new. Symptoms have improved. audra
[2019-10-18 21:34] VITALS: BP 166/86; TEMP 98; O2SAT 100
== END 2019-10-18 21:24 | disposition home or self-care (01) ==
LOC: ER 19:10
PROC: 0JQ10ZZ Repair Face Subcutaneous Tissue and Fascia, Open Approach (ICD-10-PCS; principal; 2019-10-18)
DX: S01.81XA Laceration without foreign body of other part of head, initial encounter (principal); W17.81XA Fall down embankment (hill), initial encounter; Y93.01 Activity, walking, marching and hiking; Y92.9 Unspecified place or not applicable; I10 Essential (primary) hypertension; F03.90 Unspecified dementia, unspecified severity, without behavioral disturbance, psychotic disturbance, mood disturbance, and anxiety; Z88.8 Allergy status to other drugs, medicaments and biological substances
CPT/HCPCS: 70450; 72125; 99284; G0390

== ENCOUNTER 2022-02-10 15:56 | Observation (INO) | payer OTHER ==
[2022-02-10] MEDS ORDERED: LIDOCAINE 1% W/EPI 1:100,000 30 ML VIAL ONE (15:57)
--- OUTSIDE RECORDS SUMMARY | 2022-02-10 16:00 | XMS REPORT | Continuity of Care Document ---
:1935 Author Organization [facility] t Address [address] [place] [address] Care Team Providers Name Role Phone Rhett Blackwell MD Primary Care Physician Rhett Blackwell MD Attending Clinician Caden Montez Attending Clinician Caden Montez Admitting Clinician Payers Payer Name Policy Type Policy Number Effective Date Expiration Date S ource Problems Condition Condition Condition Status Onset Resolution Last Treating Co mments Source Name Details Category Date Date Treatment Clinician Date Weight Weight Disease Active Methodi loss loss 12-19 00:00: Hospita 00 l Frequent Frequent Disease Active 2019- Metho di falls falls 12-19 00:00: Hospita 00 l Medication Medication Disease Active 2019- M ethodi management management 09-20 contract contract 00:00: Hospit a agreement agreement 00 l 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 Status Status Disease Active Methodi post post 12-23 st placement placement 00:00: Hosp judith of of 00 l implantabl implantabl e loop e loop recorder recorder Cholelithi Cholelithi Disease Active Overview : Methoddeshawn asis asis 08-[address] 00:00: g of this Hospita 00 note l might be different from the original. 08/25/2018 US Cholelith iasis without imaging findings to suspect acute cholecyst itis. Renal cyst Renal cyst Disease Active Overview : Methodi 08-[address] 00:00: g of this Hospita 00 note l might be different from the original. 08/25/2018 US ; Simple bilateral renal cysts are noted measuring 6 mm on the right and 7.6 cm on the left. Dillonk 1. Weakness Weakness Disease Active Metho di 1-14 st 00:00: Hospita 00 l Physical Physical Disease Active Metho di deconditio deconditio 8- st onesimo onesimo 00:00: Hospita 00 l SPONDYLOLT SPONDYLOL Diagnosis Active 2017-09-17 [place] HESIS THESIS 08-23 14:45:00 l LUMBAR LUMBAR 00:00: [place] REGION , REGION , 00 SPINAL S SPINAL S Active 08/23/[address] [facility] M43.16 M43.16 Diagnosis Active 2017-07-23 Me moria SPONDYLOLI SPONDYLOLI 3-19 11:07:00 l STHESIS, STHESIS, 00:00: [place] n LUMBAR LUMBAR 00 REGION REGION Active 07/05/2017 [facility] [place] Right Right Disease Active Methodi shoulder shoulder 2 st pain pain 00:00: Hospita 00 l Urinary Urinary Disease Active 2016-04 Methodi incontin[address] ce ce 00:00: Hospita 00 l History of History of Disease Active M ethodi 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 st left MCA left MCA 00:00: Hospit a stroke stroke 00 l Sialorrhea Sialorrhea Disease Active M ethodi 09-22 st 00:00: Hospita 00 l 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 08-12 st jerome joint jerome joint 00:00: Hosp judith disease), disease), 00 l multiple multiple sites sites Lactose Lactose Disease Active 2015-[address] e e 00:00: Hospita 00 l Memory Memory Disease Active 2015-04 Methodi problem problem 06-16 00:00: Hospita 00 l Gout, Gout, Disease Active 2015-04 Methodi arthropath arthropath 06-16 st y y 00:00: Hospita 00 l Essential Essential Disease Active 2015-04 Met hodi hypertensi hypertensi 04-22 on on 00:00: Hospita 00 l HLD HLD Disease Active 2015-04 Methodi (hyperlipi (hyperlipi 04-22 demia) demia) 00:00: Hospita 00 l Gastroesop Gastroesop Disease Active 2015-04 M ethodi hageal hageal 04-22 reflux reflux 00:00: Hospita disease disease 00 l without without esophagiti esophagiti s s Neuropathy Neuropathy Disease Active 2015-04 M ethodi 04-22 00:00: Hospita 00 l Vitamin D Vitamin D Disease Active 2015-04 Met hodi deficiency deficiency 04-22 00:00: Hospita 00 l Hypothyroi Hypothyroi Disease Active 2015-04 M ethodi dism dism 04-22 00:00: Hospita 00 l Atopic Atopic Disease Active 2015-04 Methodi rhinitis rhinitis 04-22 00:00: Hospita 00 l Anxiety Anxiety Disease Active 2015-04 Methodi associated associated 04-22 with with 00:00: Hospita depression depression 00 l Insomnia Insomnia Disease Active 2015-04 Metho di 04-22 00:00: Hospita 00 l Rectal Rectal Disease Active 2015-04 Methodi incontinen incontinen 04-22 ce ce 00:00: Hospita 00 l History of History of Disease Active 2015-04 M ethodi CVA with CVA with 04-22 residual residual 00:00: Hospit a deficit deficit 00 l CTS CTS Disease Active 2015-04 Methodi (carpal (carpal 04-22 tunnel tunnel 00:00: Hospita syndrome) syndrome) 00 l Gait Gait Disease Active 2015-04 Methodi instabilit instabilit 04-22 y y 00:00: Hospita 00 l Arthritis Arthritis Disease Active 2015-04 Overview: Methodi of spine of spine 04-22tin st 00:00: g of this Hospita 00 note l might be different from the original. S/p back surgery FU w ortho spine Transient Transient Problem Resolve 2017-10-29 Memoria ischemic ischemic d 11:49:25 l attack attack [place] (disorder) (disorder) Resolved Problem 10/29/2017 x2 [facility] [place] Bradycardi Bradycard Problem Active 2017-10-29 Memoria a ia 11:49:25 l (disorder) (disorder) He rmann Active Problem 10/29/2017 [facility] [place] Gastroesop Gastroeso Problem Active 2017-10-29 Memoria hageal phageal 11:49:25 l reflux reflux Ki disease disease (disorder) (disorder) Active Problem 10/29/2017 [facility] [place] Hypertensi Hypertens Problem Active 2017-10-29 Memoria ve jerome 11:49:25 l disorder, disorder, Herm christianne systemic systemic arterial arterial (disorder) (disorder) Active Problem 10/29/2017 [facility] [place] Increased Increased Problem Active 2017-10-29 Memoria frequency frequency 11:49:25 l of of [place] urination urination (finding) (finding) Active Problem 10/29/2017 [facility] [place] Osteoarthr Problem Active 2017-10-29 M emoria itis Osteoarthr 11:49:25 l (disorder) itis William n (disorder) Active Problem 10/29/2017 [facility] Recurrent Problem Active 2017-10-29 Me moria urinary Recurrent 11:49:25 l tract urinary [place] infection tract (disorder) infection (disorder) Active Problem 10/29/2017 STATES HAS A UTI 2-3x A YEAR [facility] Urgent Urgent Problem Active 2017-10-29 Mem oria desire to desire to 11:49:25 l urinate urinate [place] (finding) (finding) Active Problem 10/29/2017 [facility] SPONDYLOLI SPONDYLOL Diagnosis Active 2017-07-23 Memoria STHESIS, ISTHESIS, 11:07:00 l LUMBAR LUMBAR Ki REGION REGION Active [place] Cerebrovas Cerebrova Problem Resolve 1999-2017-10-29 2017-10-29 Memoria cular scular d 1- 11:49:25 11:49:25 l accident accident 00:00: [place] n (disorder) (disorder) 00 Resolved 04/19/1999 Problem 10/29/2017 resulted in left sided weakness [facility] History of Past Illness Condition Condition Condition Status Onset Resolution Last Treating Co mments Source Name Details Category Date Date Treatment Clinician Date Spondyloli Spondylol Problem 2017-2017-10-29 2017-10-29 [place] patience, isthesis, 4 11:49:25 11:49:25 l lumbar lumbar 03:37: Ki region region 44 07/30/2017 10/29/2017 [facility] Allergies, Adverse Reactions, Alerts Allergy Allergy Status Severity Reaction(s) Onset Inactive Treating Comm ents Source Name Type Date Date Clinician Nitrofunoel Nichole Active 2015-04 welps Method i antoin ty to 04-22 st Macrocry adverse 00:00: Hospita stal reaction 00 l s to drug Macrodan Macrodan Active Memori a tin tin l Ki Family History Family Member Diagnosis Comments Start Date Stop Date Source Natural brother Aneurysm [facility] brother COPD [facility] father Heart disease [facility] Natural mother Hypertension [facility] mother Stroke [facility] sister [facility] Social History Social Habit Start Date Stop Date Quantity Comments Source History of tobacco Current smoker Me thodist use [facility] Alcohol intake 2020-04-26 2020-04-26 Current drinker [facility]o dist 00:00:00 00:00:00 of [facility] Social History 2017-08-26 2017-08-26 [facility] 18:31:04 18:31:04 Cigarettes smoked 2017-05-19 2017-05-[address] current (pack per 00:00:00 00:00:00 Hospita l day) - Reported Cigarette 2017-05-19 2017-05-19 [facility] pack-years 00:00:00 00:00:00 Hospital Tobacco use and 2017-05-19 2017-05-19 Smokeless tobacco [facility] exposure 00:00:00 00:00:00 non-user Hospital Tobacco Comment 2016-02-21 2016-02-21 1992 quit smoking [facility] 00:00:00 00:00:00 Hospital Alcohol Comment 2016-02-21 2016-02-21 rare [facility] 00:00:00 00:00:00 Hospital Sex Ass[birth year] At [birth year] [facility] 00:00:00 00:00:00 Hospital Smoking Status Start Date Stop Date Source Ex-smoker 2017-05-19 00:00:00 2017-05-19 00:00:00 [facility] Medications Ordered Filled Start Stop Current Ordering Indication Dosage Frequency Signature Comments Components Source Medication Medication Date Date Medication? Clinician (SIG) Name Name Vitamin D2 Yes [id number] TAKE 1 M ethodi 50,000 unit 4-[address] capsule 00:00: MOUTH Hospita 00 EVERY WEEK l ON WEDNESDAY loratadine Yes [id number] TAKE 1 Methodi (CLARITIN) 3-[address] 10 mg 00:00: MOUTH ONCE Hospit a tablet 00 DAILY l telmisartan Yes 80mg QD Take 1 Meth vivian (MICARDIS) 3-22 tablet (80 st 80 MG 00:00: mg total) Hospita tablet 00 by mouth l daily. NIFEdipine Yes 60mg QD Take 1 Metho di XL 3-22 tablet (60 st (PROCARDIA 00:00: mg total) Ho spita XL) 60 MG 00 by mouth l 24 hr nightly. tablet atorvastati Yes [id number] 40mg QD Take 1 Methodi n (LIPITOR) 3-22 tablet (40 st 40 mg 00:00: mg total) Hospita tablet 00 by mouth l daily. multivitami Yes QD Take by Met hodi n (MULTIPLE 1-[address] VITAMINS 13:55: daily. Hospita ORAL) 29 l loperamide Yes 2mg Take 2 mg Me thodi (IMODIUM) 2 1-[address] mg capsule 13:19: Prn Hospita 17 [place] [id number] 1{tbl} QD Take 1 M ethodi en-codeine 1-[address] (TYLENOL 13:19: mouth Hospita WITH 17 nightly as l CODEINE #3) needed for 300-30 mg moderate per tablet pain .acute pain. omeprazole 2019-04 Yes 40mg QD Take 1 Metho di (PriLOSEC) 2-[address] 40 MG 00:00: (40 mg Hospita capsule 00 total) by l mouth daily. metoprolol 2019-04 Yes 50mg QD Take 1 Metho di succinate 2-18 tablet (50 st XL 00:00: mg total) Hospita (TOPROL-XL) 00 by mouth l 50 mg 24 hr daily. tablet clopidogreL 2019-04 Yes [id number] 75mg QD Take 1 Methodi (PLAVIX) 75 2-18 tablet (75 st mg tablet 00:00: mg total) Hos chrissie 00 by mouth l daily. clonIDINE 2019-04 Yes .1mg Q.5D Take 1 Method i (CATAPRES) 2-[address] 0.1 MG 00:00: (0.1 mg Hospita tablet 00 total) by l mouth 2 (two) times a day as needed for high blood pressure. (Prn SBP> 170) sertraline 2019-04 Yes [id number] 150 mg = Methodi (ZOLOFT) 2-09 1.5 tab, st 100 MG 00:00: PO,daily Hospita tablet 00 l levothyroxi Yes [id number] 100ug QD Take 1 Methodi ne 7-[address] (SYNTHROID) 00:00: (100 mcg Ho spita 100 mcg 00 total) by l tablet mouth every morning. minoxidiL Yes 10mg Q.5D Take 1 Method i (LONITEN) 7- tablet (10 st 10 MG 00:00: mg total) Hospita tablet 00 by mouth 2 l (two) times a day. gabapentin Yes 300 mg = 1 M emoria 300 MG Oral 6-01 cap, PO, l Capsule 18:08: BID, # 90 Jayna nn 00 cap, 1 Refill(s), Pharmacy: [id number] tizanidine Yes 4 mg = 1 Mem oria 4 mg oral 6-01 tab, PO, l tablet 18:08: Q8H, PRN Ki 00 for muscle spasms, # 90 tab, 0 Refill(s), Pharmacy: [id number] Docusate Yes 100 mg = 1 Mem oria Sodium 100 6-01 cap, PO, l MG Oral 18:08: BID, # 60 Jayna nn Capsule 00 cap, 1 [Colace] Refill(s), Pharmacy: [id number] Sertraline No Notes: Memor ia 6- (Same as: l 14:00: Zoloft) Ki 00 Omeprazole No Notes: Memor ia 6-01 Take 1 l 14:00: hour [place] 00 before or 2 hours after meal; Non-Formul randall Drug "Do Not Crush" (Same as: Prilosec) Minoxidil No Minoxidil Mem oria 2.5 mg 09-17 2.5 mg l tablet 14:00: tablet, 00 2.5 mg, 1 tab, Drug form: MISC, Route: PO, Daily, 09/17/17 9:00:00 CDT, Duration: 30 day, Stop date: 10/16/17 9:00:00 CDT Minoxidil No 2.5 mg, Memor ia 09-17 Route: PO, l 14:00: Drug form: [place] 00 TAB, Daily, Dosing Weight 70.455, kg, Start date: 09/17/17 9:00:00 CDT, Duration: 30 day, Stop date: 10/16/17 9:00:00 CDT meloxicam No Notes: Memori a 6- (Same as: l 14:00: Mobic) Loratadine No Notes: 1 Mem oria 6-01 hr before l 14:00: meals Ki 00 (Same as: Claritin) Non-formul randall item Protonix No Notes: Memoria 6-01 Tablet l 14:00: should not Ki 00 be chewed or crushed. (Same as: Protonix) Thyroxine No Notes: Memori a 6-01 Take 1 l 11:30: hour Ki 00 before or 2 hours after meal; Enteral feeds may interefere with the absorption of this medication . (Same as:Levothr oid, Synthroid) metoprolol No Notes: Memor ia tartrate 09-17 (Same as: l 02:00: Lopressor) atorvastati No Notes: Gaston emma n 09-17 (Same As: l 02:00: Lipitor) [place] Trazodone No Notes: Memori a Hydrochlori - (Same As: l de 100 MG 02:00: Desyrel) Herm christianne Oral Tablet 00 Docusate No Notes: Memoria Sodium 100 09-16 (Same as: l MG Oral 22:00: Colace) Ki Capsule 00 (Do Not Crush) telmisartan No Notes: Gaston emma 5-31 Non-Formul l 22:00: randall Drug. (Same As: Micardis) Cefazolin No Notes: Memori a 5-31 (Same As: l 21:00: Ancef, [place] 00 Kefzol) MEDICATION WASTE Product Size: 1000 [...] Mem oria (ANES) 09-16 Drug form: l 17:02: INJ, ONCE, Stop date: 09/16/17 12:02:00 CDT Ancef + No Notes: Memoria Sodium -31 (Same As: l Chloride 17:00: Ancef, Ki 0.9% IV 100 00 Kefzol) mL MEDICATION WASTE Product Size: 1000 mg Product Wasted: ___ mg ondansetron No Route: IV, Memoria (ANES) 5-31 Drug form: l 16:44: INJ, ONCE, Stop date: 09/16/17 11:44:00 CDT Acetaminoph No Notes: Do M emoria en - not exceed l 16:34: 4 gm/day. (Same as: Tylenol) Lactated No 1,000 mL, Gaston emma Ringers IV 09-16 Rate: 75 l 1,000 mL 16:34: ml/hr, Infuse over: 13.3 hr, Route: IV, Dosing Weight 70.455 kg, Total Volume: 1,000, Start date: 09/16/17 11:34:00 CDT, Duration: 30 day, Stop date: 10/16/17 11:33:00 CDT, 1.85, m2 Acetaminoph No Notes: Do M emoria en 325 MG / 5-31 not exceed l Hydrocodone 16:34: 4gm/day of Ki Bitartrate 00 acetaminop 10 MG Oral hen. (Same Tablet as: Renick 325/10) Aluminum No Notes: Memoria Hydroxide 5-31 (aluminum l 40 MG/ML / 16:34: hydroxide- H ermann Magnesium 00 magnesium Hydroxide hyd- 40 MG/ML / simethicon Simethicone e 4 MG/ML 400-400-40 Oral mg/5ml 30 Suspension ml ud RILEY) Dulcolax No Notes: Memoria Laxative -31 (Same As: l 16:34: Dulcolax, [place] 00 Correctol) (Do Not Crush) "Do Not Crush" Morphine No Notes: Memoria 5-31 (Same l 16:34: as:MORPhin Ki 00 e Sulfate) Ondansetron No Notes: Gaston emma 5-31 (Same as: l 16:34: Zofran Ki ODT) Diphenhydra No Notes: Gaston emma mine -31 (Same as: l 16:34: Benadryl) Ki 00 Naloxone No Notes: Memoria 5-31 Same as l 16:34: Narcan Hydromorpho No Notes: Gaston emma ne -31 (Same as: l 16:34: Dilaudid) conc = 0.5 mg/ml Hydromorph one [employer] Dose: ;Delay: ;Basal: dexamethaso No Route: IV, Memoria ne (ANES) 5-31 Drug form: l 16:16: INJ, ONCE, Ki Stop date: 09/16/17 11:16:00 CDT phenylephri No Route: IV, Memoria ne (ANES) 5-31 Drug form: l 15:46: INJ, ONCE, [place] Stop date: 09/16/17 10:46:00 CDT acetaminoph No Route: IV, Memoria en (ANES) 5-31 Drug form: l 10 mg 15:33: INJ, Start William n date: 09/16/17 10:33:00 CDT, Stop date: 09/16/17 11:33:00 CDT rocuronium 2017-0 No Route: IV, M emoria (ANES) 09-16 Drug form: l 15:26: INJ, ONCE, Stop date: 09/16/17 10:26:00 CDT ePHEDrine 2017-0 No Route: IV, Me moria (ANES) 09-16 Drug form: l 15:21: INJ, ONCE, Stop date: 09/16/17 10:21:00 CDT niCARdipine 2017-0 No Route: IV, Memoria (ANES) 09-16 Drug form: l 14:41: INJ, ONCE, Stop date: 09/16/17 9:41:00 CDT niCARdipine 2017-0 No Route: IV, Memoria (ANES) 09-16 Drug form: l 14:21: INJ, ONCE, Stop date: 09/16/17 9:21:00 CDT ePHEDrine 2017-0 No Route: IV, Me moria (ANES) 09-16 Drug form: l 14:12: INJ, ONCE, Stop date: 09/16/17 9:12:00 CDT rocuronium 2017-0 No Route: IV, M emoria (ANES) 09-16 Drug form: l 14:11: INJ, ONCE, Stop date: 09/16/17 9:11:00 CDT propofol 2017-0 No Route: IV, Mem oria (ANES) 09-16 Drug form: l 14:11: INJ, ONCE, Stop date: 09/16/17 9:11:00 CDT succinylcho 2017-0 No Route: IV, Memoria line (ANES) 09-16 Drug form: l 14:11: INJ, ONCE, Stop date: 09/16/17 9:11:00 CDT fentaNYL 2017-0 No Route: IV, Mem oria (ANES) 09-16 Drug form: l 14:11: INJ, ONCE, Stop date: 09/16/17 9:11:00 CDT lidocaine 2017-0 No Route: IV, Me moria (ANES) 09-16 [...] Drug form: l mg 13:22: INJ, Start date: 09/16/17 8:22:00 CDT, Stop date: 09/16/17 9:22:00 CDT Dexamethaso No Notes: Gaston emma ne 09-16 Concentrat l 13:17: ion: 4mg/ml Ondansetron No Notes: Gaston emma 09-16 [...] Labetalol No 10 mg, 2 Gaston emma -31 mL, Route: l 13:17: IVP, Drug form: [...] 8:45:00 CDT Cefazolin No Notes: Memori a 09-16 Same as: l 11:11: Ancef Ki 00 Trazodone Yes 50 mg = Memor ia Hydrochlori 5-11 0.5 tab, l de 100 MG 17:16: PO, [place] Oral Tablet 00 Bedtime, # 30 tab, 1 Refill(s) telmisartan 0 Yes 80 mg = 1 M emoria 80 mg oral 5-11 tab, PO, l tablet 17:15: QPM, # 30 William n 00 tab, 3 Refill(s) solifenacin Yes 10 mg = 1 M emoria 10 mg oral 5-11 tab, PO, l tablet 17:08: Daily, # [place] 00 30 tab, 1 Refill(s) sertraline Yes 150 mg = Mem oria 100 mg oral 5-11 1.5 tab, l tablet 17:08: PO, Daily, Jayna nn 00 # 30 tab, 0 Refill(s) omeprazole 2017-0 Yes 40 mg = 1 Me moria 40 mg oral 5-11 cap, PO, l delayed 17:08: Daily, Ki release 00 take DOS, capsule # 30 cap, 0 Refill(s) minoxidil 2017- Yes 2.5 mg = 1 Me moria 2.5 mg oral 5-11 tab, PO, l tablet 17:07: Daily, # Ki 00 180 tab, 3 Refill(s) metoprolol Yes 50 mg = 1 Me moria 50 mg oral 5-11 tab, PO, l tablet, 17:07: BID, take Jayna nn extended 00 DOS, # 30 release tab, 0 Refill(s) meloxicam Yes 15 mg = 1 Mem oria 15 mg oral 5-11 tab, PO, l tablet 17:07: Daily, # [place] 00 30 tab, 0 Refill(s) levothyroxi Yes 100 Memori a ne 100 mcg 5-11 microgram l (0.1 mg) 17:06: = 1 tab, Jayna nn oral tablet 00 PO, Daily, take DOS, # 60 tab, 0 Refill(s) Levofloxaci No 500 mg = 1 Memoria n 500 MG 5-11 tab, PO, l Oral Tablet 17:06: Q24H, # 10 [place] [Levaquin] 00 tab, 0 Refill(s) loratadine Yes 10 mg = 1 Me moria 10 mg oral 5-11 tab, PO, l tablet 17:06: Daily, # [place] 00 10 tab, 0 Refill(s) gabapentin Yes 100 mg = 1 M emoria [...] tab, PO, l tablet 17:05: Daily, # Ki 00 30 tab, 0 Refill(s) atorvastati Yes 40 mg = 1 M emoria n 40 mg 5-11 tab, PO, l oral tablet 17:05: Bedtime, # [place] 00 30 tab, 0 Refill(s) Immunizations Ordered Immunization Filled Immunization Date Status Commen ts Source Name Name FLUZONE HIGH-DOSE PF 2019-12-28 Completed [facility] 00:00:00 Hospital FLUZONE HIGH-DOSE PF 2019-02-20 Completed [facility]ist 00:00:00 Hospital Pneumococcal 2018-07-29 Completed [facility] Polysaccharide 00:00:00 Hospital FLUZONE QUAD 2018-01-17 Completed [facility] INTRADERMAL PF 00:00:00 Hospital FLUZONE HIGH-DOSE PF 2017-03-24 Completed Meth odist 00:00:00 Hospital Pneumococcal 2016-08-06 Completed [facility] Conjugate 13-Valent 00:00:00 Hospi teodoro FLUZONE HIGH-DOSE PF 2016-02-21 Completed Meth odist 00:00:00 Hospital Influenza (IM) 2013-04-21 Completed [facility] Preservative Free 00:00:00 Hospita l Pneumococcal, 2004-08-21 Completed [facility] Unspecified 00:00:00 Hospital Vital Signs Vital Name Observation Time Observation Value Comments Source Heart Rate 2017-09-17 15:15:00 [facility] Temperature Oral (F) 2017-09-17 15:15:00 98.8 F [facility] [place] Systolic (mm Hg) 2017-09-17 15:15:00 Gaston rial Ki Diastolic (mm Hg) 2017-09-17 15:15:00 Mem orial [place] Heart Rate 2017-09-17 13:48:00 [facility] [place] Systolic (mm Hg) 2017-09-17 13:48:00 Gaston rial [place] Diastolic (mm Hg) 2017-09-17 13:48:00 Mem orial [place] Heart Rate 2017-09-17 11:50:00 [facility] [place] Systolic (mm Hg) 2017-09-17 11:50:00 Gaston rial [place] Diastolic (mm Hg) 2017-09-17 11:50:00 Mem orial Ki Respitory Rate 2017-09-17 11:50:00 Memori al Ki Temperature Oral (F) 2017-09-17 11:50:00 98.5 F [facility] Ki Respitory Rate 2017-09-17 08:45:00 Memori al [place] Temperature Oral (F) 2017-09-17 08:45:00 98.4 F [facility] [place] Respitory Rate 2017-09-17 04:15:00 Memori al Ki Height 2017-09-16 11:16:00 172.72 cm [facility] [place] Weight 2017-09-16 11:16:00 [facility] [place] BMI Calculated 2017-09-16 11:16:00 Memori al [place] BMI Calculated 2017-08-27 17:19:00 Memori al Ki Weight 2017-08-27 17:19:00 [facility] Height 2017-08-26 18:24:00 172.72 cm [facility] Procedures Procedure Date / Time Performed Performing Clinician [facility] juan luis Cataract extraction and Anh Emerson insertion of intraocular lens Hysterectomy [facility] ORIF - Open reduction and Marge Sharif internal fixation of fracture Spinal fusion [facility] Suspension of bladder [facility] Plan of Care Planned Activity Planned Date Details Comments Source Future Scheduled 2022-02-10 HEPATITIS B [facility] Test 15:58:40 VACCINES (1 of 3 - 3-dose series) [code = HEPATITIS B VACCINES (1 of 3 - 3-dose series)] Future Scheduled 2022-02-10 COVID-19 VACCINE [facility] Test 15:58:40 (#1) [code = COVID-19 VACCINE (#1)] Future Scheduled 2022-02-10 SHINGLES VACCINES Method is Hospital Test 15:58:40 (1 of 2) [code = SHINGLES VACCINES (1 of 2)] Future Scheduled 2022-02-10 INFLUENZA VACCINE [facility] Test 15:58:40 [code = INFLUENZA VACCINE] Encounters Start End Encounter Admission Attending Care Care Encounter Source Date/Time Date/Time Type Type Clinicians Facility Department ID 2021-08-13 2021-08-13 Refill Collin, [id number] Methodi 00:00:00 00:00:00 Rhett [id number] Hospit [id number] l .8 2020-04-26 2020-04-26 Outpatient [facility] [id number] [place] 00:00:00 00:00:00 BRANKA 957 Method i 2020-04-26 2020-04-26 Outpatient [facility] [id number] [place] 00:00:00 00:00:00 BRANKA 768 Method i 2020-01-19 2020-01-19 Outpatient [facility] [id number] [place] 00:00:00 00:00:00 BRANKA 507 Method i 2019-12-20 2019-12-20 Outpatient [facility] [id number] [place] 00:00:00 00:00:00 BRANKA [address] 2019-09-21 2019-09-21 Outpatient [place], [facility] [id number] [place] 00:00:00 00:00:00 BRANKA [address] 2017-09-16 2017-09-17 Inpatient nullFlavo [facility] [id number] Memoria 10:33:00 18:53:00 r [place] 02 l Orthopedic [facility] 2017-09-16 2017-09-17 Outpatient Tc [facility] [id number] 05:33:00 13:53:00 , Caden 02 2017-08-11 2017-08-12 Outpt Diag nullFlavo [facility] [id number] Memoria 17:20:00 04:59:00 Services r Outpatient 00 l Beni [facility] 2017-08-11 2017-08-11 Outpatient [place] [id number] 12:20:00 23:59:00 , Caden 00 2017-07-23 2017-07-24 Outpatient nullFlavo [facility] [id number] Memoria 16:07:00 04:59:00 r Ki 00 l [facility] 2017-07-23 2017[facility]07-[id number] 11:07:00 23:59:00 , Caden 00 Results Test Description Test Time Test Comments Results Result Comments Source CHEM PANEL 2017-09-17 08:44:00 Test Item Value Reference Range Interpretation Comme nts CO2 (test code = CO2) 28 24-32 [facility] [employer] [id number] 08:44:00 Test Item Value Reference Range Interpretation Comments Chloride Lvl (test code = Chloride Lvl) 107 95-109 [facility] [id number] 08:44:00 Test Item Value Reference Range Interpretation Comments Creatinine Lvl (test code = Creatinine 0.96 0.50-1.40 Lvl) [facility] [id number] 08:44:00 Test Item Value Reference Range Interpretation Comments BUN (test code = BUN) 19 7-22 [facility] [employer] [id number] 08:44:00 Test Item Value Reference Range Interpretation Comments eGFR (test code = eGFR) 55 [facility]2018-06-01 08:44:00 Test Item Value Reference Range Interpretation Comments Potassium Lvl (test code = Potassium 4.1 3.5-5.1 Lvl) [facility]2018-06-01 08:44:00 Test Item Value Reference Range Interpretation Comments Sodium Lvl (test code = Sodium Lvl) 141 135-145 [facility]2018-06-01 08:44:00 Test Item Value Reference Range Interpretation Comments Glucose Lvl (test code = Glucose Lvl) 134 70-99 [facility]2018-06-01 08:44:00 Test Item Value Reference Range Interpretation Comments AGAP (test code = AGAP) 10.1 10.0-20.0 [id number] 08:44:00 Test Item Value Reference Range Interpretation Comments Hgb (test code = Hgb) 9.5 12.0-16.0 [id number] 08:44:00 Test Item Value Reference Range Interpretation Comments Hct (test code = Hct) 28.2 36.0-48.0 [facility]2018-06-01 08:44:00 Test Item Value Reference Range Interpretation Comments Calcium Lvl (test code = Calcium Lvl) 8.4 8.5-10.5 [facility] [id number] 11:10:00 Test Item Value Reference Range Interpretation Comments Antibody Scrn (test Negative (09/16/17 6:10 code = Antibody Scrn) AM) [facility] [id number] 11:10:00 Test Item Value Reference Range Interpretation Comments ABO/Rh (test code = ABO/Rh) A POS [facility] [id number] 10:00:00 Test Item Value Reference Range Interpretation Comments RBC product (test code Product available = RBC product) (09/16/17 5:00 AM) [facility] [id number] 17:50:00 Test Item Value Reference Range Interpretation Comments ABO/Rh (test code = ABO/Rh) A POS [facility] [id number] 17:50:00 Test Item Value Reference Range Interpretation Comments Antibody Scrn (test Negative (08/27/17 code = Antibody Scrn) 12:50 PM) [facility]2018-05-11 17:50:00 Test Item Value Reference Range Interpretation Comments eGFR (test code = eGFR) 61 [facility]2018-05-11 17:50:00 Test Item Value Reference Range Interpretation Comments ASPARTATE TRANSAMINASE 19 See_Comment [Aut omated message] (test code = ASPARTATE The s ystem which TRANSAMINASE) generated this result transmitted ref erence range: <=37. Th e reference range was not used to interpr et this result as normal/abnormal . [facility]2018-05-11 17:50:00 Test Item Value Reference Range Interpretation Comments Alk Phos (test code = Alk Phos) 67 39-136 [facility]2018-05-11 17:50:00 Test Item Value Reference Range Interpretation Comments ALANINE AMINOTRANSFERASE 19 See_Comment [A utomated message] (test code = ALANINE The sys tem which AMINOTRANSFERASE) generated this result transmitted ref erence range: <=65. Th e reference range was not used to int erpret this result as normal/abnormal . [facility]2018-05-11 17:50:00 Test Item Value Reference Range Interpretation Comments Bili Total (test code = Bili Total) 0.7 0.2-1.3 [facility]2018-05-11 17:50:00 Test Item Value Reference Range Interpretation Comments Albumin Lvl (test code = Albumin Lvl) 3.7 3.5-5.0 [facility]2018-05-11 17:50:00 Test Item Value Reference Range Interpretation Comments Glucose Lvl (test code = Glucose Lvl) 86 70-99 [facility]2018-05-11 17:50:00 Test Item Value Reference Range Interpretation Comments Sodium Lvl (test code = Sodium Lvl) 144 135-145 [facility]2018-05-11 17:50:00 Test Item Value Reference Range Interpretation Comments Potassium Lvl (test code = Potassium 4.2 3.5-5.1 Lvl) [facility]2018-05-11 17:50:00 Test Item Value Reference Range Interpretation Comments Creatinine Lvl (test code = Creatinine 0.88 0.50-1.40 Lvl) [facility]2018-05-11 17:50:00 Test Item Value Reference Range Interpretation Comments BUN (test code = BUN) 14 7-22 [facility]2018-05-11 17:50:00 Test Item Value Reference Range Interpretation Comments Calcium Lvl (test code = Calcium Lvl) 8.7 8.5-10.5 [place] [id number] 17:50:00 Test Item Value Reference Range Interpretation Comments CO2 (test code = CO2) 30 24-32 [facility]2018-05-11 17:50:00 Test Item Value Reference Range Interpretation Comments Total Protein (test code = Total 6.6 6.4-8.4 Protein) [facility]2018-05-11 17:50:00 Test Item Value Reference Range Interpretation Comments Chloride Lvl (test code = Chloride Lvl) 107 95-109 [facility]2018-05-11 17:50:00 Test Item Value Reference Range Interpretation Comments B/C Ratio (test code = B/C Ratio) 16 1 6-25 [place] [id number] 17:50:00 Test Item Value Reference Range Interpretation Comments Globulin (test code = Globulin) 2.9 2.7-4.2 [facility]2018-05-11 17:50:00 Test Item Value Reference Range Interpretation Comments AGAP (test code = AGAP) 11.2 10.0-20.0 [facility]2018-05-11 17:50:00 Test Item Value Reference Range Interpretation Comments A/G Ratio (test code = A/G Ratio) 1.3 1 0.7-1.6 [id number] 17:50:00 Test Item Value Reference Range Interpretation Comments Basophils (test code = 0.6 See_Comment [Aut omated message] The Basophils) system which ge nerated this result tra nsmitted reference range : <=1.0. The reference r skyler was not used to int erpret this result as normal/abnormal . [id number] 17:50:00 Test Item Value Reference Range Interpretation Comments Segs (test code = Segs) 66.3 45.0-75.0 [place] [id number] 17:50:00 Test Item Value Reference Range Interpretation Comments Eosinophils (test code = 3.4 See_Comment [A utomated message] The Eosinophils) system which ge nerated this result tra nsmitted reference range : <=4.0. The reference r skyler was not used to int erpret this result as normal/abnormal . [id number] 17:50:00 Test Item Value Reference Range Interpretation Comments Lymphocytes (test code = Lymphocytes) 23.1 20.0-40.0 [id number] 17:50:00 Test Item Value Reference Range Interpretation Comments Monocytes (test code = Monocytes) 6.6 2.0-12.0 [id number] 17:50:00 Test Item Value Reference Range Interpretation Comments Eosinophils # (test code 0.2 See_Comment [A utomated message] The = Eosinophils #) system whic h generated this result tra nsmitted reference range : <=0.5. The reference r skyler was not used to int erpret this result as normal/abnormal . [facility] L[id number] 17:50:00 Test Item Value Reference Range Interpretation Comments Monocytes # (test code 0.4 See_Comment [Aut omated message] The = Monocytes #) system which generated this result tra nsmitted reference range : <=0.8. The reference r skyler was not used to int erpret this result as normal/abnormal . [facility] L[id number] 17:50:00 Test Item Value Reference Range Interpretation Comments Lymphocytes # (test code = Lymphocytes 1.4 1.0-5.5 #) [facility] LongviewTgtovygNXHWRJNSYY9023-11-48 17:50:00 Test Item Value Reference Range Interpretation Comments Segs-Bands # (test code = Segs-Bands #) 4.0 1.5-8.1 [id number] 17:50:00 Test Item Value Reference Range Interpretation Comments INR (test code = INR) 1.02 1 0.85-1.17 [facility] L[id number] 17:50:00 Test Item Value Reference Range Interpretation Comments PROTIME (test code = PROTIME) 13.4 s 12.0-14.7 [facility] L[id number] 17:50:00 Test Item Value Reference Range Interpretation Comments aPTT (test code = aPTT) 28.3 s 22.9-35.8 [facility] LongviewLxsntaiQAPTTILBZQ5872-93-04 17:50:00 Test Item Value Reference Range Interpretation Comments Hct (test code = Hct) 37.2 36.0-48.0 [facility] Lo[id number] 17:50:00 Test Item Value Reference Range Interpretation Comments MCV (test code = MCV) 79.3 80.0-98.0 [id number] 17:50:00 Test Item Value Reference Range Interpretation Comments MCH (test code = MCH) 26.5 pg 27.0-31.0 [facility] L[id number] 17:50:00 Test Item Value Reference Range Interpretation Comments MCHC (test code = MCHC) 33.4 32.0-36.0 [id number] 17:50:00 Test Item Value Reference Range Interpretation Comments Platelet (test code = Platelet) 145 133-450 [facility] L[id number] 17:50:00 Test Item Value Reference Range Interpretation Comments RDW (test code = RDW) 13.6 11.5-14.5 [id number] 17:50:00 Test Item Value Reference Range Interpretation Comments MPV (test code = MPV) 9.3 7.4-10.4 [id number] 17:50:00 Test Item Value Reference Range Interpretation Comments WBC (test code = WBC) 6.0 3.7-10.4 [facility] L[id number] 17:50:00 Test Item Value Reference Range Interpretation Comments RBC (test code = RBC) 4.69 4.20-5.40 [id number] 17:50:00 Test Item Value Reference Range Interpretation Comments Hgb (test code = Hgb) 12.4 12.0-16.0 [facility]2018-05-11 17:50:00 Test Item Value Reference Range Interpretation Comments UA Turbidity (test code = Clear (08/27/17 12:50 UA Turbidity) PM) [facility]2018-05-11 17:50:00 Test Item Value Reference Range Interpretation Comments UA Color (test code = Yellow *NA*(08/27/17 UA Color) 12:50 PM) [facility] AND [id number] 17:50:00 Test Item Value Reference Range Interpretation Comments UA Blood (test code = Negative (08/27/17 12:50 UA Blood) PM) [facility] AND [id number] 17:50:00 Test Item Value Reference Range Interpretation Comments UA Ketones (test code = UA Negative mg/dL Ketones) [facility] AND [id number] 17:50:00 Test Item Value Reference Range Interpretation Comments UA Bili (test code = Negative *NA*(08/27/17 UA Bili) 12:50 PM) [facility] AND [id number] 17:50:00 Test Item Value Reference Range Interpretation Comments UA Glucose (test code = UA Negative mg/dL Glucose) [facility] AND [id number] 17:50:00 Test Item Value Reference Range Interpretation Comments UA Protein (test code = UA Negative mg/dL Protein) [facility] AND [id number] 17:50:00 Test Item Value Reference Range Interpretation Comments UA Spec Grav (test code = UA Spec 1.010 1 Grav) [facility] AND [id number] 17:50:00 Test Item Value Reference Range Interpretation Comments UA pH (test code = UA pH) 6.0 1 5.0-8.0 [facility] AND [id number] 17:50:00 Test Item Value Reference Range Interpretation Comments UA Nitrite (test code Negative (08/27/17 12:50 = UA Nitrite) PM) [facility] AND [id number] 17:50:00 Test Item Value Reference Range Interpretation Comments UA Urobilinogen (test code = UA 0.2 0.1-1.0 Urobilinogen) [facility] AND [id number] 17:50:00 Test Item Value Reference Range Interpretation Comments UA Leuk Est (test Negative (08/27/17 12:50 code = UA Leuk Est) PM) [facility] AND [id number] 17:50:00 Test Item Value Reference Range Interpretation Comments UA Sq Epi (test code = None Seen (08/27/17 UA Sq Epi) 12:50 PM) [facility] AND [id number] 17:50:00 Test Item Value Reference Range Interpretation Comments UA RBC (test None Seen See_Comment [Automated mes candy] code = UA RBC) (08/27/17 12:50 The system which PM) generated this result transmitted ref erence range: <=2. The reference range was not used to int erpret this result as normal/abnormal . [facility] AND [id number] 17:50:00 Test Item Value Reference Range Interpretation Comments UA WBC (test code = UA WBC) 0-2 /HPF [facility] [id number] 17:50:00 Test Item Value Reference Range Interpretation Comments UA Bacteria (test code = UA Occasional /HPF Bacteria) [facility]
--- NOTE | 2022-02-10 16:30 | RAD REPORT ---
EXAM DESCRIPTION: CT - CTFB CLINICAL HISTORY: FALL, LAC TO HEAD COMPARISON: None TECHNIQUE: Axial 2 mm thick images of the face were obtained with sagittal and coronal reconstructio n images. All CT scans are performed using dose optimization technique as appropriate and may include automated exposure control or mA/KV adjustment according to patient size. FINDINGS: No acute facial bone fracture is seen.The mandible is intact. Age indeterminate bilateral nasal bone fractures. The globes and orbital contents are grossly unremarkable.The paranasal sinuses and mastoids are clear . Left forehead hematoma. IMPRESSION: Age indeterminate bilateral nasal bone fractures. Left forehead hematoma but no definite acute fracture.
--- NOTE | 2022-02-10 16:32 | RAD REPORT ---
EXAM DESCRIPTION: CT - CTHCSPWOC - 02/10/2022 4:17 pm CLINICAL HISTORY: Trauma, head and neck injury. FALL, LAC TO HEAD COMPARISON: Head C Spine Mpr Wo Con dated 10/18/2019 TECHNIQUE: Axial 5 mm thick images of the head were obtained. Axial 2 mm thick images of the cervical spine were obtained with sagittal and coronal reconstruction images generated and reviewed. All CT scans are performed using dose optimization technique as appropriate and may include automated exposure control or mA/KV adjustment according to patient size. FINDINGS: CT HEAD WITHOUT CONTRAST: No acute hemorrhage, hydrocephalus or extra-axial collection is identified.Moderate chronic small ves collette ischemic changes. Remote basal ganglia lacunar infarcts. The paranasal sinuses and mastoids are clear.The calvarium is intact. Left forehead hematoma. CT CERVICAL SPINE WITHOUT CONTRAST: No fracture or subluxation.No prevertebral soft tissues swelling is identified. Multilevel cervical s pondylosis with varying degrees of neural foraminal narrowing. Trace anterolisthesis of C4 on C5 and C5 on C6 is likely related to underlying degenerative changes. Bulky facet degenerative changes. IMPRESSION: No acute intracranial or cervical spine findings.Left forehead hematoma but no underlyin g skull fracture.
[2022-02-10] MEDS ORDERED: FENTANYL CITR 100 MCG/2 ML ONE ×2 (16:49→19:33)
--- NOTE | 2022-02-10 18:01 | ER ---
Nurse's Notes [facility] Name: Alana Guevara Age: 86 yrs Sex: Female : 1935 Arrival Date: 02/10/2022 Time: 16:03 Bed 4 Private MD: Diagnosis: Concussion with loss of consciousness of unspecified duration;Laceration without foreign body of unspecified part of head;Hypertensive heart disease without heart failure Presentation: 02/10 16:04 Chief complaint: EMS states: Pt stood up from sitting and fell from standing position vg1 hitting head on wooden floor. Upon arrival to [facility] pt was laying in approximately "50 cc" of blood; pt AOx4, appears to have a large avulsion to Left side of head. Wound covered with ABD pads and kerlix. Pt also placed in CCollar. Stated pt takes Plavix and denies LOC. Pt also appears to have skin tear to Left arm. Care prior to arrival: Cervical collar in place. IV initiated. 18 GA, in the right antecubital area. Mechanism of Injury: Fall from standing position. Trauma event details: Injury occurred in the [facility]. 16:04 Acuity: JAEL 2 vg1 16:04 Method Of Arrival: EMS: [facility] vg1 16:27 Coronavirus screen: Vaccine status: Patient reports receiving the 2nd dose of the covid vg1 vaccine. Client denies travel out of the [place] in the last 14 days. Ebola Screen: Patient negative for fever greater than or equal to 101.5 degrees Fahrenheit, and additional compatible Ebola Virus Disease symptoms Patient denies exposure to infectious person. Initial Sepsis Screen: Does the patient meet any 2 criteria?. Initial Sepsis Screen: Does the patient have a suspected source of infection? No. Patient's initial sepsis screen is negative. Risk Assessment: Do you want to hurt yourself or someone else? Patient reports no desire to harm self or others. Onset of symptoms was February 10, 2022. 20:40 Note 1934 pt nauseated emesis x1 cleaned of incontinence placed in gown wound to kl forehead cleaned with saline Neosporin applied dressed with 4 x 4 secured with tape ice pack in place. wound to left forearm cleaned with NS Neosporin applied covered with Tegaderm abrasion to right outer arm cleaned with NS Neosporin applied Pure wick placed pt tolerated procedures well. Trauma Activation: Alert Physician: ED Physician; Name: Mendosa; Notified At: ; Arrived At: Physician: General Surgeon; Name: ; Notified At: ; Arrived At: Physician: Radiology; Name: ; Notified At: ; Arrived At: Physician: Respiratory; Name: ; Notified At: ; Arrived At: Physician: Lab; Name: ; Notified At: ; Arrived At: Historical: - Allergies: 16:19 meperidine HCl; vg1 16:19 Nitrofurantoin Macrocrystal; vg1 - PMHx: 16:19 CVA; Dementia; per daughter; High Cholesterol; Hypertension; Hypothyroidism; TIA; vg1 Anxiety; Depressive disorder; Osteoarthritis; GERD; - Immunization history: Last tetanus immunization: unknown. - Social history:: Smoking status: Patient/guardian denies using tobacco, the patient reports quitting approximately 30 years ago. Screenin:04 Abuse screen: Denies threats or abuse. Nutritional screening: No deficits noted. vg1 Tuberculosis screening: No symptoms or risk factors identified. 16:26 Fall Risk Fall in past 12 months (25 points). Secondary diagnosis (15 points) impaired vg1 mobility, IV access (20 points). Ambulatory Aid- None/Bed Rest/Nurse Assist (0 pts). Gait- Normal/Bed Rest/Wheelchair (0 pts) Mental Status- Oriented to own ability (0 pts). Total Gomez Fall Scale indicates High Risk Score (45 or more points). Fall prevention measures have been instituted. Side Rails Up X 2 Placed Close to Nursing Station Family Present and informed to notify staff if the need to leave the bedside As available patient and family educated on Fall Prevention Program and Strategies. Primary Survey: 16:04 NO uncontrolled hemorrhage observed. A: The client is awake and alert. The airway is vg1 patent. The client is alert. Breathing/Chest: Spontaneous respiratory effort, equal unlabored respirations, breath sounds clear bilaterally, regular pattern, symmetrical chest rise and fall. Respiratory effort: spontaneous, Breath sounds: clear, bilaterally. Circulation: Skin color: pink. Disability Client is alert. Exposure/Environment: All clothing and personal items were removed. Forensic evidence collection is not deemed to be indicated at this time. Items placed in patient belonging bag. There is no evidence of uncontrolled external bleeding. Obvious injury(ies) are noted at this time: appears to have a large avulsion to left side of forehead. 16:44 Reassessment Alertness and Airway: Awake and alert. The airway is patent. Airway Patent vg1 Breathing: Spontaneous respiratory effort, equal unlabored respirations, breath sounds clear bilaterally, regular pattern with symmetrical chest rise and fall. Respiratory effort Spontaneous Circulation: No external hemorrhage noted. Regular and strong central pulse, skin warm/dry/normal color. Disability: Alert. Secondary Survey: 16:04 HEENT: Head Other appears to have 'large avulsion' to left side of forehead Eyes: Other vg1 bruising to left eye, blue in color Ears: clear Nose: clear. Gastrointestinal: Abdomen is soft. : No signs and/or symptoms were reported regarding the genitourinary system. Musculoskeletal: Circulation, motion, and sensation intact. Assessment: 16:04 General: Appears in no apparent distress. uncomfortable, Behavior is calm, cooperative. vg1 Pain: Complains of pain in forehead and left methodist Pain currently is 9 out of 10 on a pain scale. Pain began 30 min ago. Neuro: Level of Consciousness is awake, alert, obeys commands, Oriented to person, place, time, situation. EENT: No signs and/or symptoms were reported regarding the EENT system. Cardiovascular: Capillary refill < 3 seconds in bilateral fingers. Respiratory: Airway is patent Respiratory effort is even, unlabored, Breath sounds are clear bilaterally. GI: No signs and/or symptoms were reported involving the gastrointestinal system. Abdomen is flat, Abd is soft and non tender X 4 quads. : No signs and/or symptoms were reported regarding the genitourinary system. Derm: Wound noted forehead and left methodist Bruising that is dark purple, on left eye. Musculoskeletal: Circulation, motion, and sensation intact. 16:43 Reassessment: received VO from Leeanne ROSE to administer Fentanyl 25 mcg x1 IVP. vg1 17:00 Reassessment: Patient appears in no apparent distress at this time. Patient and/or vg1 family updated on plan of care and expected duration. Pain level reassessed. Patient is alert, oriented x 3, equal unlabored respirations, skin warm/dry/pink. pt hair cleaned of blood with soap and water; pt daughter at bedside. 18:00 Reassessment: Patient appears in no apparent distress at this time. Patient and/or vg1 family updated on plan of care and expected duration. Pain level reassessed. Patient is alert, oriented x 3, equal unlabored respirations, skin warm/dry/pink. Pt up for d/c; currently awaiting for BP to decrease. 18:17 Reassessment: Daughter is upset that patient is going to be discharged and is asking ss Dr. Mendosa if she can be admitted for observation. Dr. Mendosa is giving daughter verbal reassurance and is speaking Wiliam ROSE Fallon about plan of care. 19:20 General: Appears uncomfortable, slender, Behavior is calm, cooperative. Pain: Complains kl of pain in left eye and face and left methodist Pain currently is 5 out of 10 on a pain scale. Quality of pain is described as aching, throbbing, Noted to be grimacing. Neuro: Level of Consciousness is awake, alert, obeys commands, repeats same questions at times. Cardiovascular: Heart tones S1 S2 Rhythm is sinus bradycardia. Respiratory: No deficits noted. Airway is patent Trachea midline Respiratory effort is even, unlabored, Breath sounds are clear bilaterally. : incontinent of urine. EENT: Derm: Wound noted left eye and palmar aspect of left forearm Bruising that is dark purple, on left eye and face and left methodist and forehead. 21:07 Reassessment: Patient appears in no apparent distress at this time. Patient and/or family updated on plan of care and expected duration. Pain level reassessed. Patient states feeling better. Patient states symptoms have improved. Vital Signs: 16:04 BP 216 / 65; Pulse 62; Resp 20; Temp 98.3(O); Pulse Ox 98% on R/A; Weight 61.23 kg; vg1 Height 5 ft. 8 in. (172.72 cm); Pain 9/10; 16:27 BP 191 / 58; Pulse 56; Resp 15; Pulse Ox 95% on R/A; vg1 16:46 BP 188 / 60; Pulse 54; Resp 13; Pulse Ox 98% on R/A; vg1 17:11 BP 189 / 60; Pulse 54; Resp 14; Pulse Ox 98% on R/A; vg1 17:45 BP 181 / 82; Pulse 53; Resp 12; Pulse Ox 98% on R/A; vg1 18:00 BP 193 / 59; Pulse 55; Resp 12; Pulse Ox 97% on R/A; vg1 18:20 BP 196 / 70; Pulse 59; Resp 14; Pulse Ox 96% on R/A; vg1 19:20 BP 205 / 85; Pulse 58; Resp 16; Pulse Ox 97% ; kl 19:35 BP 216 / 89; Pulse Ox 97% ; kl 20:05 BP 210 / 65; Pulse 54; Resp 18; Pulse Ox 97% on R/A; kl 20:30 BP 195 / 62; Pulse 54; Resp 15; Pulse Ox 99% ; kl 21:05 Temp 98.5(TE); kl 21:05 BP 155 / 47; Pulse 70; Resp 15; Pulse Ox 98% ; kl 22:06 BP 188 / 79; Pulse 72; Pulse Ox 94% ; kl 23:28 BP 169 / 72; Pulse 80; Resp 18; Pulse Ox 99% on R/A; kl 16:04 Body Mass Index 20.53 (61.23 kg, 172.72 cm) vg1 Cheryl Coma Score: 16:04 Eye Response: spontaneous(4). Verbal Response: oriented(5). Motor Response: obeys vg1 commands(6). Total: 15. 16:05 Eye Response: spontaneous(4). Verbal Response: oriented(5). Motor Response: obeys cp commands(6). Total: 15. 17:00 Eye Response: spontaneous(4). Verbal Response: oriented(5). Motor Response: obeys cp commands(6). Total: 15. Trauma Score (Adult): 16:04 Eye Response: spontaneous(1); Verbal Response: oriented(1); Motor Response: obeys vg1 commands(2); Systolic BP: > 89 mm Hg(4); Respiratory Rate: 10 to 29 per min(4); Afton Score: 15; Trauma Score: 12 ED Course: 16:03 Patient arrived in ED. vg1 16:03 Wiliam Fallon PA is PHCP. cp 16:03 Bernabe Mednosa MD is Attending Physician. cp 16:04 Patient has correct armband on for positive identification. Bed in low position. Call vg1 light in reach. Side rails up X2. Patient maintains SpO2 saturation greater than 95% on room air. 16:04 Patient maintains SpO2 saturation greater than 95% on room air. vg1 16:08 Triage completed. vg1 16:19 Head C Spine Mpr Wo Con In Process Unspecified. EDMS 16:19 Facial Bones W/ Mpr In Process Unspecified. EDMS 16:27 Arm band placed on. vg1 16:28 Thermoregulation: warm blanket given to patient. vg1 16:33 Tracee Jacinto, RN is Primary Nurse. vg1 20:16 XRAY Chest (1 view) In Process Unspecified. EDMS 20:19 Basic Metabolic Panel Sent. kl 20:19 CBC with Diff Sent. kl 20:19 Magnesium Sent. kl 20:19 PT-INR Sent. kl 20:19 Troponin HS Sent. kl 20:44 SARS-COV-2 Antigen Rapid Sent. 21:46 Initiated transfer to [place], was on hold for 53 mins, then Dr. Chahal called spoke with Nori. Did a Doc to Doc and decided to cancel initiation of transfer. 22:13 Horacio Padron MD is Hospitalizing Provider. cp 23:23 No provider procedures requiring assistance completed. Patient admitted, IV remains in kl place. Administered Medications: 16:50 Drug: fentaNYL (PF) 25 mcg Route: IVP; Site: right antecubital; vg1 18:56 Follow up: Response: No adverse reaction; Pain is decreased vg1 17:57 CANCELLED (Physician Discretion): hydrALAZINE 10 mg IVP once cp 17:58 CANCELLED (Physician Discretion): HYDROcodone-acetaminophen 5 mg-325 mg 1 tabs PO once cp 18:17 Drug: Tylenol 650 mg Route: PO; vg1 18:57 Follow up: Response: No adverse reaction vg1 18:17 Drug: cloNIDine 0.1 mg Route: PO; vg1 18:17 Drug: Tylenol #3 (300 mg-30 mg) 1 tablet Route: PO; vg1 19:30 Drug: fentaNYL (PF) 25 mcg Route: IVP; Site: right antecubital; kl 22:08 Follow up: Response: No adverse reaction; Marked relief of symptoms kl 19:30 Drug: Zofran (Ondansetron) 4 mg Route: IVP; Site: left antecubital; kl 22:08 Follow up: Response: No adverse reaction; Marked relief of symptoms kl 20:19 Not Given (Duplicate Order): Tetanus Toxoid,Adsorbed 0.5 ml IM once; Provide Vaccine kl Information Statement (VIS). 20:25 CANCELLED (Patient ): NS 0.9% 250 ml IV at bolus once cp 20:32 Drug: hydrALAZINE 10 mg Route: IVP; Site: right antecubital; 22:08 Follow up: Response: No adverse reaction; Marked relief of symptoms 20:48 Drug: Neosporin ([id number]) Ointment 1 application Route: Topical; Site: affected area; Medication: 23:28 VIS not applicable for this client. kl Output: 23:24 Urine: 500ml (Voided); Total: 500ml. kl Outcome: 18:00 Discharge ordered by MD. cp 22:15 Decision to Hospitalize by Provider. cp 23:23 Admitted to Tele via stretcher, room 401, Report called to [facility] 23:23 Condition: stable 23:23 Instructed on the need for admit. 23:27 Patient's length of stay in the Emergency Department was greater than 2 hours. change kl in patient condition Patient's length of stay extended due to 23:36 Patient left the ED. Signatures: Dispatcher [employer] EDMalina Tesfaye RN RN Kitty Wong RN RN Wiliam Jordan, ROSE PA Tracee Matamoros RN RN vg1 Estrella Timmons Corrections: (The following items were deleted from the chart) 21:51 21:46 Initiated transfer to [place], was on hold for 53 mins, then Dr. Chahal called [facility]
--- NOTE | 2022-02-10 18:02 | EDPHYS ---
Physician Documentation [facility] Name: Alana Guevara Age: 86 yrs Sex: Female : 1935 Arrival Date: 02/10/2022 Time: 16:03 Bed 4 Private MD: ED Physician Bernabe Mendosa HPI: 02/10 16:05 This 86 yrs old Female presents to ER via Unassigned with complaints of Fall Injury, cp Head Injury-Adult. 16:05 The patient or guardian reports injury, a laceration, pain. The complaints affect the cp forehead. Context of injury: resulted from a fall, from a standing position. 16:05 Onset: The symptoms/episode began/occurred just prior to arrival. Associated signs and cp symptoms: Loss of consciousness: This patient experience a loss of consciousness, for an unknown period of time. 16:05 EMS reports patient loss balance and fell striking head against wooden floor. EMS cp reports LOC and noticing concerning amount of blood on floor. Patient takes Plavix daily with reported history of stroke in the past. Historical: - Allergies: 16:19 meperidine HCl; vg1 16:19 Nitrofurantoin Macrocrystal; vg1 - PMHx: 16:19 CVA; Dementia; per daughter; High Cholesterol; Hypertension; Hypothyroidism; TIA; vg1 Anxiety; Depressive disorder; Osteoarthritis; GERD; - Immunization history: Last tetanus immunization: unknown. - Social history:: Smoking status: Patient/guardian denies using tobacco, the patient reports quitting approximately 30 years ago. ROS: 16:05 Cardiovascular: Negative for chest pain. cp 16:05 Skin: Positive for laceration(s), of the forehead. 16:05 Neuro: Positive for headache, loss of consciousness, Negative for altered mental status, syncope. 16:05 Constitutional: Negative for fever, poor PO intake. cp 16:05 Eyes: Negative for pain, redness, vision loss. 16:05 ENT: Negative for drainage from ear(s), ear pain, sore throat, difficulty swallowing, difficulty handling secretions. 16:05 Respiratory: Negative for cough, shortness of breath, wheezing. 16:05 Abdomen/GI: Negative for abdominal pain, vomiting, diarrhea, constipation, black/tarry stool, rectal bleeding. 16:05 Back: Negative for pain at rest, pain with movement. 16:05 MS/extremity: Negative for injury or acute deformity, decreased range of motion. 16:05 All other systems are negative. Exam: 16:10 Constitutional: The patient appears in no acute distress, alert, awake, cp non-diaphoretic, non-toxic, well developed, well nourished, uncomfortable. 16:10 Head/face: Noted is a laceration(s), that is deep, of the forehead, swelling, that is cp moderate, of the forehead. 16:10 Eyes: Periorbital structures: swelling, that is moderate, on the left supraorbital ridge, ecchymosis, that is mild, on the left supraorbital ridge, Pupils: equal, round, and reactive to light and accomodation, Extraocular movements: intact throughout, Conjunctiva: normal, no exudate, no injection, Sclera: no appreciated abnormality. 16:10 ENT: External ear(s): are unremarkable, Nose: is normal, Mouth: Lips: moist, Oral mucosa: pink and intact, moist, Posterior pharynx: Airway: no evidence of obstruction, patent. 16:10 Neck: C-spine: C-collar placed BEE RANCHER. 16:10 Chest/axilla: Inspection: normal, Palpation: is normal, no crepitus, no tenderness. 16:10 Cardiovascular: Rate: normal, Rhythm: regular, Pulses: Pulses are 2+ in right radial artery and left radial artery. Edema: is not appreciated, JVD: is not appreciated. 16:10 Respiratory: the patient does not display signs of respiratory distress, Respirations: normal, no use of accessory muscles, no retractions, labored breathing, is not present, Breath sounds: are clear throughout, no decreased breath sounds, no stridor, no wheezing. 16:10 Abdomen/GI: Inspection: abdomen appears normal, Bowel sounds: active, all quadrants, Palpation: abdomen is soft and non-tender, in all quadrants. 16:10 Back: pain, is absent, ROM is normal. 16:10 Musculoskeletal/extremity: Exam is negative for decreased range of motion, deformity, injury. 16:10 Neuro: Orientation: to person, place \T\ time. Mentation: is normal, Motor: moves all fours, strength is normal, Sensation: is normal. 20:30 ECG was reviewed by the Attending Physician. cp Vital Signs: 16:04 BP 216 / 65; Pulse 62; Resp 20; Temp 98.3(O); Pulse Ox 98% on R/A; Weight 61.23 kg; vg1 Height 5 ft. 8 in. (172.72 cm); Pain 9/10; 16:27 BP 191 / 58; Pulse 56; Resp 15; Pulse Ox 95% on R/A; vg1 16:46 BP 188 / 60; Pulse 54; Resp 13; Pulse Ox 98% on R/A; vg1 17:11 BP 189 / 60; Pulse 54; Resp 14; Pulse Ox 98% on R/A; vg1 17:45 BP 181 / 82; Pulse 53; Resp 12; Pulse Ox 98% on R/A; vg1 18:00 BP 193 / 59; Pulse 55; Resp 12; Pulse Ox 97% on R/A; vg1 18:20 BP 196 / 70; Pulse 59; Resp 14; Pulse Ox 96% on R/A; vg1 19:20 BP 205 / 85; Pulse 58; Resp 16; Pulse Ox 97% ; kl 19:35 BP 216 / 89; Pulse Ox 97% ; kl 20:05 BP 210 / 65; Pulse 54; Resp 18; Pulse Ox 97% on R/A; kl 20:30 BP 195 / 62; Pulse 54; Resp 15; Pulse Ox 99% ; kl 21:05 Temp 98.5(TE); kl 21:05 BP 155 / 47; Pulse 70; Resp 15; Pulse Ox 98% ; kl 22:06 BP 188 / 79; Pulse 72; Pulse Ox 94% ; kl 23:28 BP 169 / 72; Pulse 80; Resp 18; Pulse Ox 99% on R/A; kl 16:04 Body Mass Index 20.53 (61.23 kg, 172.72 cm) vg1 Cheryl Coma Score: 16:04 Eye Response: spontaneous(4). Verbal Response: oriented(5). Motor Response: obeys vg1 commands(6). Total: 15. 16:05 Eye Response: spontaneous(4). Verbal Response: oriented(5). Motor Response: obeys cp commands(6). Total: 15. 17:00 Eye Response: spontaneous(4). Verbal Response: oriented(5). Motor Response: obeys cp commands(6). Total: 15. Trauma Score (Adult): 16:04 Eye Response: spontaneous(1); Verbal Response: oriented(1); Motor Response: obeys vg1 commands(2); Systolic BP: > 89 mm Hg(4); Respiratory Rate: 10 to 29 per min(4); Hatton Score: 15; Trauma Score: 12 Laceration: 16:55 Wound Repair of 3.5cm ( 1.4in ) subcutaneous laceration to left lower forehead. cp Irregularly shaped.. Distal neuro/vascular/tendon intact. Anesthesia: Wound infiltrated with 7 mls of 1% lidocaine w/ Epi. Wound prep: Simple cleansing by id. Subcutaneous tissue closed with 3 1-0 Vicryl using interrupted sutures and sterile technique. Skin closed with 6 5-0 Prolene using interrupted sutures and sterile technique. Dressed with Bacitracin, 4x4's, Kerlix. Patient tolerated well. MDM: 16:03 Patient medically screened. 17:00 Differential diagnosis: Contusion of Hematoma on Laceration of Intracranial bleed- cp Concussion cerebral contusion. 21:00 Physician consultation: Dennis ROLLINS was contacted at 21:00, regarding admission, cp to the telemetry unit. patient's condition, after a discussion of the case, a recommendation for transfer for higher level of care is made, after consultation with DR Hall, request for transfer for neurosurgery consultation. 21:50 Data reviewed: vital signs, nurses notes, lab test result(s), EKG, radiologic studies, CT scan, plain films, I have discussed the patient's presentation/case with the attending Emergency Department Physician;. 21:50 Test interpretation: by ED physician or midlevel provider: ECG, plain radiologic cp studies. 21:55 Physician consultation: was contacted at 21:50, regarding regarding transfer, to [facility]. DR Chahal spoke with DR Purcell concerning transfer for neurosurgery consult. DR Purcell believes patient can be observed at our hospital and if neuro changes occurs can contact transfer center. 02/10 19:48 Order name: Basic Metabolic Panel; Complete Time: 21:43 02/10 21:44 Interpretation: Normal except: GLUC 140; GFR 65. 02/10 19:48 Order name: CBC with Diff; Complete Time: 20:37 02/10 21:44 Interpretation: Normal except: WBC 12.10; HGB 11.6; HCT 35.0; MCH 26.5; JADE% 90.5; LYM% cp 6.3; MN% 2.8; NEUT A 10.9. 02/10 19:48 Order name: Magnesium; Complete Time: 21:43 cp 02/10 19:48 Order name: PT-INR cp 02/10 19:48 Order name: Troponin HS; Complete Time: 21:43 cp 02/10 19:52 Order name: Urine Microscopic Only cp 02/10 16:15 Order name: Head C Spine Mpr Wo Con; Complete Time: 17:13 EDMS 02/10 17:13 Interpretation: Report reviewed. cp 02/10 16:15 Order name: Facial Bones W/ Mpr; Complete Time: 17:13 EDMS 02/10 17:14 Interpretation: Report Reviewed. cp 02/10 19:48 Order name: XRAY Chest (1 view); Complete Time: 20:37 cp 02/10 21:45 Interpretation: Report review. cp 02/10 20:09 Order name: Ptt, Activated cp 02/10 20:21 Order name: SARS-COV-2 Antigen Rapid; Complete Time: 21:43 wm 02/10 19:33 Order name: Ice pack; Complete Time: 20:48 audra 02/10 19:48 Order name: EKG; Complete Time: 19:49 cp 02/10 19:48 Order name: Cardiac monitoring; Complete Time: 22:14 cp 02/10 19:48 Order name: EKG - Nurse/Tech; Complete Time: 20:19 cp 02/10 19:48 Order name: IV Saline Lock; Complete Time: 22:14 cp 02/10 19:48 Order name: Labs collected and sent; Complete Time: 20:19 cp 02/10 19:48 Order name: O2 Per Protocol; Complete Time: 22:14 cp 02/10 19:48 Order name: O2 Sat Monitoring; Complete Time: 22:14 cp EC:30 Rate is 56 beats/min. Rhythm is regular. PA interval is normal. QRS interval is cp prolonged at 112 msec. QT interval is normal. Interpreted by me. Reviewed by me. Administered Medications: 16:50 Drug: fentaNYL (PF) 25 mcg Route: IVP; Site: right antecubital; vg1 18:56 Follow up: Response: No adverse reaction; Pain is decreased vg1 17:57 CANCELLED (Physician Discretion): hydrALAZINE 10 mg IVP once cp 17:58 CANCELLED (Physician Discretion): HYDROcodone-acetaminophen 5 mg-325 mg 1 tabs PO once cp 18:17 Drug: Tylenol 650 mg Route: PO; vg1 18:57 Follow up: Response: No adverse reaction vg1 18:17 Drug: cloNIDine 0.1 mg Route: PO; vg1 18:17 Drug: Tylenol #3 (300 mg-30 mg) 1 tablet Route: PO; vg1 19:30 Drug: fentaNYL (PF) 25 mcg Route: IVP; Site: right antecubital; kl 22:08 Follow up: Response: No adverse reaction; Marked relief of symptoms kl 19:30 Drug: Zofran (Ondansetron) 4 mg Route: IVP; Site: left antecubital; kl 22:08 Follow up: Response: No adverse reaction; Marked relief of symptoms kl 20:19 Not Given (Duplicate Order): Tetanus Toxoid,Adsorbed 0.5 ml IM once; Provide Vaccine kl Information Statement (VIS). 20:25 CANCELLED (Patient ): NS 0.9% 250 ml IV at bolus once cp 20:32 Drug: hydrALAZINE 10 mg Route: IVP; Site: right antecubital; kl 22:08 Follow up: Response: No adverse reaction; Marked relief of symptoms kl 20:48 Drug: Neosporin (feuefgbh-ghateohogi-rhyohsuzc) Ointment 1 application Route: Topical; kl Site: affected area; Disposition Summary: 02/10/22 22:15 Hospitalization Ordered Hospitalization Status: Observation cp Provider: Horacio Padron cp Location: Telemetry/MedSurg (observation)(02/10/22 22:15) cp Condition: Stable(02/10/22 22:15) cp Problem: new(02/10/22 22:15) cp Symptoms: have improved(02/10/22 22:15) cp Bed/Room Type: Standard Room Assignment: 401(02/10/22 23:16) Diagnosis - Concussion with loss of consciousness of unspecified duration cp - Laceration without foreign body of unspecified part of head cp - Hypertensive heart disease without heart failure cp Forms: - Medication Reconciliation Form cp - SBAR form cp Signatures: Dispatcher [employer] Malina Foster RN Sydnee Mejia, RN Wiliam Pereira MD MD cha Attema, Lee, CONCRETE BUCKET UNLOADER-C CONCRETE BUCKET UNLOADER-Cla1 Wiliam Fallon PA PA cp Garcia, Victoria, RN RN vg1 Corrections: (The following items were deleted from the chart) 17:57 17:45 hydrALAZINE 10 mg IVP once ordered. cp cp 17:58 17:44 HYDROcodone-acetaminophen 5 mg-325 mg 1 tabs PO once ordered. cp cp : 18:00 Home cp cp : 18:00 new cp cp : 18:00 have improved cp cp : 18:00 Stable cp cp 18:00 Laceration without foreign body of other part of head - left forehead cp cp 18:00 Fall on same level from slipping, tripping and stumbling with subsequent striking cp against object cp 18:00 Essential (primary) hypertension cp cp :25 20:24 NS 0.9% 250 ml IV at bolus once ordered. cp cp 23:16 22:15 cp mw 23:40 10 20:30 ECG was reviewed by the Attending Physician. cp cp 02/10 23:40 10 20:30 Rate is 56 beats/min. Rhythm is regular. PA interval is normal. QRS cp interval is prolonged at 112 msec. QT interval is normal. Interpreted by me. Reviewed by me. cp
[2022-02-10] MEDS ORDERED: ACETAMINOPHEN 325 MG TABLET ONE (18:20)
[2022-02-10] MEDS ORDERED: CODEINE 30MG/APAP 300MG TAB ONE (18:20)
[2022-02-10] MEDS ORDERED: cloNIDine HCL 0.1 MG TAB ONE (18:20)
[2022-02-10] MEDS ORDERED: ONDANSETRON 4 MG/2 ML VIAL ONE (19:33)
[2022-02-10] MEDS ORDERED: HYDRALAZINE HCL 20 MG/ML VIAL ONE (20:25)
[2022-02-10 20:29] LABS: Absolute Lymphocytes (CBC) 0.8 K/uL (0.7-4.9); Lymphocytes % 6.3 % (15.3-44.8); MCV 80.3 fL (80-100); MPV 7.9 fL (7.6-11.3); RBC Red Blood Cell Count 4.36 M/uL (3.86-4.86)
--- NOTE | 2022-02-10 20:30 | RAD REPORT ---
EXAM DESCRIPTION: RAD - Chest Single View - 02/10/2022 8:14 pm CLINICAL HISTORY: fall COMPARISON: Chest Single View dated 12/20/2017; Chest Single View dated 04/26/2017; Chest Single View da benjie 08/05/2015; CHEST SINGLE VIEW dated 09/19/2008 FINDINGS: Lines: None. Lungs: No evidence of edema or pneumonia. Pleural: No significant pleural effusions or pneumothorax. Cardiac: The heart size is within normal limits. Loop recorder overlies the heart. Mediastinum: Within normal limits. Bones: No acute fractures. Remote left-sided rib fractures. Fusion hardware in the spine. Other: None IMPRESSION: No acute cardiopulmonary disease.
[2022-02-10 20:31] LABS: Protime INR 1.09
[2022-02-10 20:52] LABS: Potassium 3.7 mmol/L (3.5-5.1)
[2022-02-10 20:53] LABS: Magnesium 1.9 mg/dL (1.8-2.4); Troponin High Sensitivity 55.4 pg/mL (<58.9)
[2022-02-10 21:10] LABS: SARS-CoV-2 Antigen Rapid Res Negative (Negative)
--- NOTE | 2022-02-10 22:34 | P.HP ---
Certification for Inpatient Patient admitted to: Observation With expected LOS: <2 Midnights Patient will require the following post-hospital care: None Practitioner: I am a practitioner with admitting privileges, knowledge of patient current condition, hospital course, and medical plan of care. Services: Services provided to patient in accordance with Admission requirements found in Title 42 Section 412.3 of the Code of Federal Regulations Patient History Date of Service: 02/10/22 History of Present Illness: 86-year-old female with history of hypertension, hyperlipidemia, dementia, previous CVA presents to the emergency department after unwitnessed fall. She current resides at [facility] it was reported that she was found on ground by staff with small pleural blood around her head and laceration to her scalp area. EMS reported positive LOC patient pleasantly confused she denies LOC. She is evaluated in the emergency department she has a large hematoma surrounding her left eye as well as a laceration to the left frontal scalp area which was repaired in the emergency department. CT head/C-spine was performed which revealed no acute intracranial or cervical spine findings, left forehead hematoma but no underlying skull fracture. Facial bones CT was performed which revealed age-indeterminate bilateral nasal bone fractures. Left forehead hematoma with no acute fractures. Patient with no pain to her nose with palpation denies known previous fractures. Chest x-ray was unremarkable labs showed mild leukocytosis. Shortly after patient developed nausea/vomiting , ED provider called to admit patient under observation for head trauma, vomiting. Case was discussed with general surgery who recommended consult with neurosurgeon at tertiary center, ED staff spoke with neurosurgeon at [facility] who stated that the patient could be cared for adequately here that they would likely not even repeat a CT scan. When I saw the patient in the exam room she was alert, oriented x2-3 she has no complaints currently. Will admit for further evaluation and management. Allergies meperidine HCl [From Demerol] Allergy (Intermediate, Verified 12/28/17 09:40) Hives/Rash nitrofurantoin macrocrystal [From Macrodantin] Allergy (Intermediate, Verified 12/28/17 09:40) Rash Home Medications: Levothyroxine [Synthroid*] 100 mcg PO DAILY 04/21/13 Loratadine [Claritin*] 10 mg PO DAILY 04/21/13 Sertraline [Zoloft*] 100 mg PO DAILY 04/21/13 Solifenacin Succinate [Vesicare] 10 mg PO DAILY 04/21/13 Telmisartan [Micardis] 80 mg PO DAILY 04/21/13 Atorvastatin Calcium 1 tab PO DAILY 08/05/15 Gabapentin [Neurontin*] 100 mg PO TID 04/26/17 Omeprazole [Prilosec] 40 mg PO DAILY 04/26/17 Metoprolol Succinate [Toprol Xl*] 1 tab PO BID 04/27/17 Clopidogrel Bisulfate [Plavix*] 75 mg PO DAILY #30 tablet 04/28/17 minoxidiL [Loniten*] 2.5 mg PO BID 04/28/17 Cholecalciferol (Vitamin D3) [Vitamin D 5,000 IU Cap*] 5,000 unit PO EVERY 7TH DAY cap 12/27/17 Trazodone [Desyrel*] 100 mg PO BEDTIME PRN PRN tablet 12/27/17 Apixaban [Eliquis *] 2.5 mg PO BID #60 tablet 01/07/18 Iron/FA/Vit B-Com W/C [Hemocyte Plus*] 1 tab PO DAILY WITH BREAKFAST #30 tab 01/07/18 Lidocaine 4% Patch [Lidoderm 5% Patch*] 1 patch TOP DAILY #30 patch 01/07/18 traMADol HCL [Ultram*] 50 mg PO Q6H PRN #30 tab 01/07/18 - Past Medical/Surgical History Diabetic: No -: CVA in 1999 -: hypertension -: hypothyroidism -: hyperlipidemia -: carpal tunnel syndrome -: UTI -: TIA -: knee sx -: back sx x2 -: hysterectomy -: Appendectomy Psychosocial/ Personal History: Patient lives in assisted living facility - Family History Father -: Heart disease, Lung disease Mother -: Hypertension, Stroke Brother -: Lung disease Notes: aneurysm Sister -: Diabetes Notes: obesity. brain tumor - Social History Alcohol use: No CD- Drugs: No Caffeine use: No Place of Residence: Home Review of Systems 10-point ROS is otherwise unremarkable Gastrointestinal: Nausea Integumentary: Bruising Physical Examination - Physical Exam General: Alert, In no apparent distress, Oriented x3 HEENT: Atraumatic, PERRLA, Mucous membr. moist/pink, EOMI, Sclerae nonicteric Neck: Supple, 2+ carotid pulse no bruit, No LAD, Without JVD or thyroid abnormality Respiratory: Clear to auscultation bilaterally, Normal air movement Cardiovascular: Regular rate/rhythm, Normal S1 S2 Capillary refill: <2 Seconds Gastrointestinal: Normal bowel sounds, No tenderness Musculoskeletal: No tenderness Integumentary: Other (Hematoma/bruise noted to left forehead, surrounding left eye, left is forced closed by swelling but can be opened, sclera is white PERRLA. Patient denies any changes in vision of left eye. Laceration to left frontal scalp area repaired.) Neurological: Normal speech, Normal strength at 5/5 x4 extr, Normal tone, Normal affect - Studies Laboratory Data (last 24 hrs) 02/10/22 20:10: PT 12.0, INR 1.09 02/10/22 20:10: WBC 12.10 H, Hgb 11.6 L, Hct 35.0 L, Plt Count 153 02/10/22 20:10: Sodium 141, Potassium 3.7, BUN 16, Creatinine 0.87, Glucose 140 H, Magnesium 1.9 Assessment and Plan - Plan Assessment: Fall, isolated head trauma with suspected concussive syndrome History of CVA Hypertension Hyperlipidemia Hypothyroidism Dementia Plan: Fall, isolated head trauma with suspected concussive syndrome: CT head negative in the ER for acute findings, large hematoma to left frontal scalp/around left eye. I opened and examined the left eye . PERRLA, sclera white, patient denies any visual changes or pain. Monitor neurochecks Q4H, surgical consult in place as patient is here for trauma. Case was discussed with neurosurgery at [facility] who advised patient can be safely managed here at this time. History of CVA: Hold plavix given recent head trauma. Hypertension: Continue home meds Hyperlipidemia: Continue home meds Hypothyroidism: Continue home meds Dementia: Continue home meds DVT PPX: SCD Code status: Full Discharge Plan: Home Plan to discharge in: 24 Hours - Advance Directives Does patient have a Living Will: No Does patient have a Durable POA for Healthcare: No - Code Status/Comfort Care Code Status Assessed: Yes (Full code) Critical Care: No Time Spent Managing Pts Care (In Minutes): 70
[2022-02-10] MEDS ORDERED: ACETAMINOPHEN 500 MG TAB PO PRN (23:40)
[2022-02-10] MEDS ORDERED: ONDANSETRON 4 MG/2 ML VIAL IV PRN (23:40)
[2022-02-11 00:23] VITALS: BMI 20.8
[2022-02-11 00:27] VITALS: O2SAT 99
[2022-02-11 02:10] LABS: Specific Gravity 1.017 (1.005-1.030); Urine Bacteria >50 /HPF (<20); Urine Bilirubin NEGATIVE (Negative); Urine Blood Negative (Negative); Urine Clarity Turbid (Clear); Urine Color Yellow (Yellow); Urine Glucose NEGATIVE (Negative); Urine Protein 1+ (Negative); Urine RBC <5 /HPF (None Seen); Urine Urobilinogen Normal (Normal)
[2022-02-11 04:44] LABS: Absolute Lymphocytes (CBC) 1.3 K/uL (0.7-4.9); Hematocrit 31.8 % (36.0-45.0); Lymphocytes % 13.7 % (15.3-44.8); MCV 79.9 fL (80-100); RBC Red Blood Cell Count 3.98 M/uL (3.86-4.86)
[2022-02-11 04:49] LABS: Potassium 3.4 mmol/L (3.5-5.1)
[2022-02-11] MEDS ORDERED: CEFTRIAXONE 1000 MG/VIAL ONE (08:31)
[2022-02-11] MEDS ORDERED: NA CHLORIDE 0.9% 50 ML ONE (08:55)
[2022-02-11] MEDS ORDERED: CEFTRIAXONE 1,000 MG in NA CHLORIDE 0.9% 50 ML IVPB SCH (09:00)
[2022-02-11] MEDS ORDERED: BACI/NEOMYCIN/POLY OINT 15GM TOP SCH (11:25)
--- NOTE | 2022-02-11 11:44 | CON ---
Date of Consultation: 02/10/2022 Reason For Consultation: Head trauma. History Of Present Illness: The patient is an 86-year-old female, who was at an assisted living and lost her balance and fell. She is not sure whether she had loss of consciousness or not. She had hi story of stroke in the past and she also has a little bit her dementia. The EMS did report positive LOC with the patient presented to the emergency room. She had a large hematoma on her left eye with a laceration on the forehead, which was repaired in the emergency room. She had a CT of the head and face and neck done, which showed no new fractures. There were old fractures of the nose and there w as a hematoma. There were no other significant findings. The patient denies any dyspnea, any shortn ess of breath, any chest pain, any abdominal pain, any pelvic pain, any extremity pain. No neck pain . No back pain. The patient is awake and alert. No sore throat, runny nose, cough, headaches, or d izziness. No fever or chills. Review of Systems: Otherwise unremarkable. Past Medical History: Significant for CVA 22 years ago, hypertension, hypothyroidism, hyperlipidemia , UTI, and TIA. Past Surgical History: Carpal tunnel syndrome, knee surgery, back surgery x2, hysterectomy, appendec jabier. Allergies: NITROFURANTOIN AND DEMEROL. Medications: Reviewed. Please note, the patient is on Eliquis. Social History: The patient does not smoke or drink alcohol. Family History: Significant for diabetes, lung disease, hypertension, stroke. Physical Examination: Vital Signs: Stable. She is currently afebrile. General: She is awake, alert, and oriented x3. Head and Neck: Cranial nerves 2 through 12 are grossly within normal limits. No neck masses. No JV D. Throat clear. Neck is supple. Chest: Clear. Heart: S1, S2. Abdomen: Soft. Extremities: Neurovascularly intact. On the left eye, there is ecchymosis with swelling present and on the left forehead, there is an incision with a crusted old blood present. There is no surroundin g erythema, warmth, and edema. There is no evidence of any active bleeding. Scalp itself is nontend er. The neck is supple and nontender. There is full range of motion. Diagnostic Data: As per HPI. Laboratory Data: Reviewed. Her H and H were on admission was 11.6 and 35, currently is 10.8 and 31. 8. White count is normal this morning. INR is 1.09. Chemistry reviewed, essentially unremarkable. Glucose is slightly elevated. Potassium is slightly diminished lower. Assessment: An 86-year-old female with multiple medical problems, on anticoagulation with laceration and hematoma of the left eye and forehead. Recommendation: The patient clinically appears very stable. There are no further signs of any occul t head injury at this point. We will get Physical Therapy to evaluate her and make sure she is safe to be able to be discharged back to the assisted living. When that is done, she can be discharged fr om a surgical standpoint. Discussed the plan of care with Dr. Padron. JAYRO/JOSE JUAN Voice ID: [id number] Report ID: [id number]
--- NOTE | 2022-02-11 13:08 | EKG ---
Test Date: 2022-02-10 Test Time: 20:24:36 Herb Grower: LETY MEASUREMENT RESULTS: Intervals: Rate: 56 PA: 146 QRSD: 112 QT: 474 QTc: 457 [place]: P: 22 PA: 146 QRS: -38 T: 89 INTERPRETIVE STATEMENTS: Sinus bradycardia Left axis deviation Left ventricular hypertrophy with repolarization abnormality Abnormal ECG Compared to ECG 12/20/2017 09:31:47 Early repolarization now present Electronically Signed On 02-11-22 13:06:40 CDT by Gareth Mg
[2022-02-11 17:04] VITALS: BP 171/69; TEMP 99.1
--- NOTE | 2022-02-11 17:44 | P.DS ---
Admission Date: 02/10/22 Discharge Date: 02/11/22 Disposition: ROUTINE DISCHARGE Discharge Condition: GOOD Consultations: General Surgery / Trauma: Dr. Hall Brief History of Present Illness: 86-year-old female with history of hypertension, hyperlipidemia, dementia, previous CVA presents to the emergency department after unwitnessed fall. She current resides at [facility] it was reported that she was found on ground by staff with small pleural blood around her head and laceration to her scalp area. EMS reported positive LOC patient pleasantly confused she denies LOC. She is evaluated in the emergency department she has a large hematoma surrounding her left eye as well as a laceration to the left frontal scalp area which was repaired in the emergency department. CT head/C-spine was performed which revealed no acute intracranial or cervical spine findings, left forehead hematoma but no underlying skull fracture. Facial bones CT was performed which revealed age-indeterminate bilateral nasal bone fractures. Left forehead hematoma with no acute fractures. Patient with no pain to her nose with palpation denies known previous fractures. Chest x-ray was unremarkable labs showed mild leukocytosis. Shortly after patient developed nausea/vomiting , ED provider called to admit patient under observation for head trauma, vomiting. Case was discussed with general surgery who recommended consult with bianca robert at tertiary center, ED staff spoke with neurosurgeon at [facility] who stated that the patient could be cared for adequately here that they would likely not even repeat a CT scan. When I saw the patient in the exam room she was alert, oriented x2-3 she has no complaints currently. Will admit for further evaluation and management. Hospital Course: Problem List: Fall, isolated head trauma with suspected concussive syndrome History of CVA Hypertension Hyperlipidemia Hypothyroidism Dementia Patient presented to ED after fall and hitting head from standing position. CT was negative for acute intracranial process. She was noted to have significant facial / periorbital bruising. CT of facial bones without orbit involvement, no acute fractures. Workup in ED noted bacteruria, no WBCs in urine. Patient's daughter reported foul smelling urine in the mornings, but not necessarily anything new. Patient remained afebrile, and vitals WNL She was alert/oriented, reported she fell due to not using her walker and has fallen multiple times in the past due to prior strokes. Patient was empirically treated with IV rocephin for possible UTI. Given her history of UTIs and partial findings, will treat possible UTI for 5 days. She was noted to be hypertensive on presentation and improved as her pain improved. She is on several blood pressure medications, recommend monitoring blood pressure to ensure she is not getting hypotensive. Recommend holding plavix for one day, restart 02/13 No changes in chronic medications. Vital Signs/Physical Exam: Temp Pulse Resp BP Pulse Ox 99.1 F 64 16 171/69 H 97 02/11/22 16:00 02/11/22 16:00 02/11/22 16:00 02/11/22 16:00 02/11/22 16:00 General: Alert, In no apparent distress, Oriented x3 HEENT: Other (periorbital / L facial hematoma), EOMI Respiratory: Clear to auscultation bilaterally, Normal air movement Cardiovascular: No edema, Regular rate/rhythm Gastrointestinal: Soft and benign, Non-distended, No tenderness Neurological: Normal speech, Normal affect, Abnormal gait Laboratory Data at Discharge: WBC 9.20 K/uL (4.3-10.9) 02/11/22 04:03 Hgb 10.8 g/dL (12.0-15.0) L 02/11/22 04:03 Hct 31.8 % (36.0-45.0) L 02/11/22 04:03 Plt Count 161 K/uL (152-406) 02/11/22 04:03 PT 12.0 SECONDS (9.5-12.5) 02/10/22 20:10 INR 1.09 02/10/22 20:10 APTT 26.5 SECONDS (24.3-36.9) 02/10/22 20:10 Sodium 142 mmol/L (136-145) 02/11/22 04:03 Potassium 3.4 mmol/L (3.5-5.1) L 02/11/22 04:03 BUN 17 mg/dL (7-18) 02/11/22 04:03 Creatinine 0.91 mg/dL (0.55-1.3) 02/11/22 04:03 Glucose 126 mg/dL (74-106) H 02/11/22 04:03 Magnesium 1.9 mg/dL (1.8-2.4) 02/10/22 20:10 Home Medications: Levothyroxine [Synthroid*] 100 mcg PO DAILY 04/21/13 Loratadine [Claritin*] 10 mg PO DAILY 04/21/13 Sertraline [Zoloft*] 100 mg PO DAILY 04/21/13 Telmisartan [Micardis] 80 mg PO DAILY 04/21/13 Atorvastatin Calcium 1 tab PO DAILY 08/05/15 Metoprolol Succinate [Toprol Xl*] 1 tab PO BID 04/27/17 Clopidogrel Bisulfate [Plavix*] 75 mg PO DAILY #30 tablet 04/28/17 minoxidiL [Loniten*] 10 mg PO BID 04/28/17 Cholecalciferol (Vitamin D3) [Vitamin D 5,000 IU Cap*] 5,000 unit PO EVERY 7TH DAY cap 12/27/17 traMADol HCL [Ultram*] 50 mg PO Q6H PRN #30 tab 01/07/18 Acetaminophen 650 mg PO BEDTIME 02/11/22 Cefdinir [Omnicef] 300 mg PO BID 5 Days #10 cap 02/11/22 Codeine/APAP [Tylenol W/Codeine #3 tab] 1 tab PO BEDTIME PRN PRN 02/11/22 Donepezil HCl 5 mg PO DAILY 02/11/22 Loperamide [Imodium*] 2 mg PO DAILY PRN 02/11/22 Nifedipine [Procardia Xl] 60 mg PO DAILY 02/11/22 Trazodone [Desyrel*] 50 mg PO BEDTIME 02/11/22 cloNIDine HCL [Clonidine HCl] 0.1 mg PO BID* PRN 02/11/22 New Medications: Cefdinir [Omnicef] 300 mg PO BID 5 Days #10 cap Physician Discharge Instructions: Patient presented to ED after fall and hitting head from standing position. CT was negative for acute intracranial process. She was noted to have significant facial / periorbital bruising. CT of facial bones without orbit involvement, no acute fractures. Workup in ED noted bacteruria, no WBCs in urine. Patient's daughter reported foul smelling urine in the mornings, but not necessarily anything new. Patient remained afebrile, and vitals WNL She was alert/oriented, reported she fell due to not using her walker and has fallen multiple times in the past due to prior strokes. Patient was empirically treated with IV rocephin for possible UTI. Given her history of UTIs and partial findings, will treat possible UTI for 5 days. She was noted to be hypertensive on presentation and improved as her pain improved. She is on several blood pressure medications, recommend monitoring blood pressure to ensure she is not getting hypotensive. Recommend holding plavix for one day, restart 02/13 No changes in chronic medications. Followup: NONE,NONE [Primary Care Provider] - Time spent managing pt's care (in minutes): 45
== END 2022-02-11 17:55 | disposition home health service (06) ==
LOC: ER 15:56 → ERHOLD 22:43 → 4TH 23:19
PROVIDERS: ADMIT Hospitalist; ATTEND Hospitalist
PROC: 0JQ10ZZ Repair Face Subcutaneous Tissue and Fascia, Open Approach (ICD-10-PCS; principal; 2022-02-10)
DX: S06.0X1A Concussion with loss of consciousness of 30 minutes or less, initial encounter (principal); S01.81XA Laceration without foreign body of other part of head, initial encounter; W19.XXXA Unspecified fall, initial encounter; Y93.9 Activity, unspecified; Y92.129 Unspecified place in nursing home as the place of occurrence of the external cause; F03.90 Unspecified dementia, unspecified severity, without behavioral disturbance, psychotic disturbance, mood disturbance, and anxiety; I10 Essential (primary) hypertension; E78.5 Hyperlipidemia, unspecified; E03.9 Hypothyroidism, unspecified; Z86.73 Personal history of transient ischemic attack (TIA), and cerebral infarction without residual deficits; Z87.440 Personal history of urinary (tract) infections; F41.9 Anxiety disorder, unspecified; Z20.822 Contact with and (suspected) exposure to COVID-19
CPT/HCPCS: 93005; 87040; 85025 ×2; 81001; 80048 ×2; 36415; 83735; 85610; 85730; 84484; 70450; 72125; 70486; 76377; 71045; 97116; 97161; 99285; 87811; 12013; J0360; J3010 ×2; J2405; G0378 ×2

== ENCOUNTER 2022-08-13 11:30 | Emergency (ER) | payer OTHER ==
--- OUTSIDE RECORDS SUMMARY | 2022-08-13 11:36 | XMS REPORT | Continuity of Care Document ---
:1935 Author Organization [facility] t Address 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 Status Status Disease Active Methodi post post 12-23 st placement placement 00:00: Hosp judith of of 00 l implantabl implantabl e loop e loop recorder recorder Cholelithi Cholelithi Disease Active Overview : Cari asis asis 08-[address] 00:00: g [...] left. Bosniak 1. Weakness Weakness Disease Active Metho di 1-14 st 00:00: Hospita 00 l Physical Physical Disease Active Metho di deconditio deconditio 8- st onesimo onesimo 00:00: Hospita 00 l SPONDYLOLT SPONDYLOL Diagnosis Active 2017-09-17 [place] HESIS THESIS 08-23 14:45:00 l LUMBAR LUMBAR 00:00: [place] REGION , REGION , 00 SPINAL S SPINAL S Active 08/23/2017 [facility] M43.16 M43.16 Diagnosis Active 2017-07-23 Me moria SPONDYLOLI SPONDYLOLI 3-19 11:07:00 l STHESIS, STHESIS, 00:00: William n LUMBAR LUMBAR 00 REGION REGION Active 07/05/2017 [facility] Right Right Disease Active Methodi shoulder shoulder 227 st pain pain 00:00: Hospita 00 l Urinary Urinary Disease Active 2016-04 Methodi incontinen incontinen 0 st ce ce 00:00: Hospita 00 l History 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 S/p back surgery FU w ortho spine Bradycardi Bradycard Problem Active 2017-10-29 Memoria a ia 11:49:25 l (disorder) (disorder) He rmann Active Problem 10/29/2017 [facility] Gastroesop Gastroeso Problem Active 2017-10-29 Memoria hageal phageal 11:49:25 l reflux reflux Ki disease disease (disorder) (disorder) Active Problem 10/29/2017 [facility] Hypertensi Problem Active 2017-10-29 M emoria ve Hypertensi 11:49:25 l disorder, ve Ki systemic disorder, arterial systemic (disorder) arterial (disorder) Active Problem 10/29/2017 [facility] Increased Problem Active 2017-10-29 Me moria frequency Increased 11:49:25 l of frequency Ki urination of (finding) urination (finding) Active Problem 10/29/2017 [facility] Osteoarthr Osteoarth Problem Active 2017-10-29 Memoria itis ritis 11:49:25 l (disorder) (disorder) He rmann Active Problem 10/29/2017 [facility] Recurrent Recurrent Problem Active 2017-10-29 Memoria urinary urinary 11:49:25 l tract tract Ki infection infection (disorder) (disorder) Active Problem 10/29/2017 STATES HAS A UTI 2-3x A YEAR [facility] Urgent Urgent Problem Active 2017-10-29 Gaston emma desire to desire to 11:49:25 l urinate urinate [place] (finding) (finding) Active Problem 10/29/2017 [facility] SPONDYLOLI SPONDYLOL Diagnosis Active 2017-07-23 Memoria STHESIS, ISTHESIS, 11:07:00 l LUMBAR LUMBAR [place] REGION REGION Active [facility] Transient Transient Problem Resolve 2017-10-29 Memoria ischemic ischemic d 11:49:25 l attack attack Ki (disorder) (disorder) Resolved Problem 10/29/2017 x2 [facility] Cerebrovas Cerebrova Problem Resolve 1999-0 2017-10-29 2017-10-29 Memoria cular scular d 1- 11:49:25 11:49:25 l accident accident 00:00: William n (disorder) (disorder) 00 Resolved 04/19/1999 Problem 10/29/2017 resulted in left sided weakness [facility] History of Past Illness Condition Condition Condition Status Onset Resolution Last Treating Co mments Source Name Details Category Date Date Treatment Clinician Date Spondyloli Spondylol Problem 2017-0 2017-10-29 2017-10-29 [place] stkeyuris, isthesis, 4 11:49:25 11:49:25 l lumbar lumbar 03:37: Ki region region 44 07/30/2017 10/29/2017 [facility] Allergies, Adverse Reactions, Alerts Allergy Allergy Status Severity Reaction(s) Onset Inactive Treating Comm ents Source Name Type Date Date Clinician Nitrofur Propensi Active 2015-04 welps Method i antoin ty to 04-22 st Macrocry adverse 00:00: Hospita stal reaction 00 l s to drug Macrodan Macrodan Active Memori a tin tin l Ki Family History Family Member Diagnosis Comments Start Date Stop Date Source Natural brother Aneurysm [facility] Natural brother COPD [facility] father Heart disease [facility] Natural mother Hypertension [facility] mother Stroke [facility] sister [facility] Social History Social Habit Start Date Stop Date Quantity Comments Source History of tobacco Cigarette Smoker Christianity use [facility] Gender identity [facility] Alcohol intake 2020-04-26 2020-04-26 Current drinker [facility] dist 00:00:00 00:00:00 of [facility]) Social History 2017-08-26 2017-08-26 [facility] 18:31:04 18:31:04 Tobacco use and 2017-05-19 2017-05-19 Smokeless Christianity exposure 00:00:00 00:00:00 tobacco non-user Hospital Cigarettes smoked 2017-05-19 2017-05-[address] current (pack per 00:00:00 00:00:00 Hospita l day) - Reported Cigarette 2017-05-19 2017-05-19 Christianity pack-years 00:00:00 00:00:00 Hospital Tobacco Comment 2016-02-21 2016-02-21 1992 quit Christianity 00:00:00 00:00:00 smoking Hospital Alcohol Comment 2016-02-21 2016-02-21 rare Christianity 00:00:00 00:00:00 Hospital Sex Ass[birth year] At [birth year] Christianity 00:00:00 00:00:00 Hospital Smoking Status Start Date Stop Date Source Ex-smoker 2017-05-19 00:00:00 2017-05-19 00:00:00 [facility] Medications Ordered Filled Start Stop Current Ordering Indication Dosage Frequency Signature Comments Components Source Medication Medication Date Date Medication? Clinician (SIG) Name Name Vitamin D2 Yes [id number] TAKE 1 M ethodi 50,000 unit 4-[address] capsule 00:00: MOUTH Hospita 00 EVERY WEEK l ON WEDNESDAY Vitamin D2 Yes [id number] TAKE 1 M ethodi 50,000 unit 4-[address] capsule 00:00: MOUTH Hospita 00 EVERY WEEK l ON WEDNESDAY loratadine Yes [id number] TAKE 1 Methodi (CLARITIN) 3-[address] 10 mg 00:00: MOUTH ONCE Hospit a tablet 00 DAILY l loratadine Yes [id number] TAKE 1 Methodi (CLARITIN) 3-29 TABLET BY [...] l 24 hr nightly. tablet atorvastati Yes [id number] 40mg QD Take 1 Methodi n (LIPITOR) 3-22 tablet (40 st 40 mg 00:00: mg total) Hospita tablet 00 by mouth l daily. telmisartan Yes 80mg QD Take 1 Meth vivian (MICARDIS) 3-22 tablet (80 st 80 MG 00:00: mg total) Hospita tablet 00 by mouth l daily. NIFEdipine Yes 60mg QD Take 1 Metho di XL 3-22 tablet (60 st (PROCARDIA 00:00: mg total) Ho spita XL) 60 MG 00 by mouth l 24 hr nightly. tablet atorvastati Yes [id number] 40mg QD Take 1 Methodi n (LIPITOR) 3-22 tablet (40 st 40 mg 00:00: mg total) Hospita tablet 00 by mouth l daily. multivitami Yes QD Take by Met hodi n (MULTIPLE 1-[address] VITAMINS 13:55: daily. Hospita ORAL) 29 l multivitami 0 Yes QD Take by Met hodi n (MULTIPLE 1-[address] VITAMINS 13:55: daily. Hospita ORAL) 29 l loperamide Yes 2mg Take 2 mg Me thodi (IMODIUM) 2 1-[address] mg capsule 13:19: Prn Hospita 17 l acetaminoph 2020-0 Yes [id number] 1{tbl} QD Take 1 M ethodi en-codeine 1-[address] (TYLENOL 13:19: mouth Hospita WITH 17 nightly as l CODEINE #3) needed for 300-30 mg moderate per tablet pain .acute pain. loperamide Yes 2mg Take 2 mg Me thodi (IMODIUM) 2 1-[address] mg capsule 13:19: Prn Hospita 17 l acetaminoph Yes [id number] 1{tbl} QD Take 1 M ethodi en-codeine [...] 24 hr daily. tablet clopidogreL 2019-04 Yes [id number] 75mg QD Take 1 Methodi (PLAVIX) 75 2-18 tablet (75 st mg tablet 00:00: mg total) Hos chrissie 00 by mouth l daily. omeprazole 2019-04 Yes 40mg QD Take 1 Metho di (PriLOSEC) 2-[address] 40 MG 00:00: (40 mg Hospita capsule 00 total) by l mouth daily. metoprolol 2020 Yes 50mg QD Take 1 Metho di succinate 2-18 tablet (50 st XL 00:00: mg total) Hospita (TOPROL-XL) 00 by mouth l 50 mg 24 hr daily. tablet clopidogreL 2020-1 Yes [id number] 75mg QD Take 1 Methodi (PLAVIX) 75 [...] pressure. (Prn SBP> 170) sertraline 2019-04 Yes [id number] 150 mg = Methodi (ZOLOFT) 05-28 1.5 tab, st 100 MG 00:00: PO,daily Hospita tablet 00 l clonIDINE 2019-04 Yes .1mg Q.5D Take 1 Method i (CATAPRES) 2-[address] 0.1 MG 00:00: (0.1 mg Hospita tablet 00 total) by l mouth 2 (two) times a day as needed for high blood pressure. (Prn SBP> 170) sertraline 2019-04 Yes [id number] 150 mg = Methodi (ZOLOFT) - 1.5 tab, st 100 MG 00:00: PO,daily Hospita tablet 00 l levothyroxi 2020-0 Yes [id number] 100ug QD Take 1 Methodi ne 7-[address] (SYNTHROID) 00:00: (100 mcg Ho spita 100 mcg 00 total) by l tablet mouth every morning. levothyroxi 2020-0 Yes [id number] 100ug QD Take 1 Methodi ne 7-[address] (SYNTHROID) 00:00: (100 mcg Ho spita 100 mcg 00 total) by l tablet mouth every morning. minoxidiL 2020-0 Yes 10mg Q.5D Take 1 Method i (LONITEN) 7-01 tablet (10 st 10 MG 00:00: mg total) Hospita tablet 00 by mouth 2 l (two) times a day. minoxidiL 2020-0 Yes 10mg Q.5D Take 1 Method i (LONITEN) 7-01 tablet (10 st 10 MG 00:00: mg total) Hospita tablet 00 by mouth 2 l (two) times a day. gabapentin 2018 Yes 300 mg = 1 M emoria 300 MG Oral 6-01 cap, PO, l Capsule 18:08: BID, # 90 Jayna nn 00 cap, 1 Refill(s), Pharmacy: [id number] tizanidine 2018-0 Yes 4 mg = 1 Mem oria 4 mg oral 6-01 tab, PO, l tablet 18:08: Q8H, PRN Ki 00 for muscle spasms, # 90 tab, 0 Refill(s), Pharmacy: [facility][id number] Docusate 2018-0 Yes 100 mg = 1 Mem oria Sodium 100 6-01 cap, PO, l MG Oral 18:08: BID, # 60 Jayna nn Capsule 00 cap, 1 [Colace] Refill(s), Pharmacy: [id number] gabapentin 2018-0 Yes 300 mg = 1 M emoria 300 MG Oral 6-01 cap, PO, l Capsule 18:08: BID, # 90 Jayna nn 00 cap, 1 Refill(s), Pharmacy: [id number] tizanidine 2018-0 Yes 4 mg = 1 Mem oria 4 mg oral 6-01 tab, PO, l tablet 18:08: Q8H, PRN Ki 00 for muscle spasms, # 90 tab, 0 Refill(s), Pharmacy: [id number] Docusate 2018-0 Yes 100 mg = 1 Mem oria Sodium 100 6-01 cap, PO, l MG Oral 18:08: BID, # 60 Jayna nn Capsule 00 cap, 1 [Colace] Refill(s), Pharmacy: [facility][id number] Sertraline 2017- No Notes: Memor ia - (Same as: l 14:00: Zoloft) Omeprazole No Notes: Memor ia 6-01 Take 1 l 14:00: hour [place] 00 before or 2 hours after meal; Non-Formul randall Drug "Do Not Crush" (Same as: Prilosec) Minoxidil No Minoxidil Mem oria 2.5 mg - 2.5 mg l tablet 14:00: tablet, 2.5 mg, 1 tab, Drug form: MISC, Route: PO, Daily, 09/17/17 9:00:00 CDT, Duration: 30 day, Stop date: 10/16/17 9:00:00 CDT Minoxidil 2018-0 No 2.5 mg, Memor ia 6 Route: PO, l 14:00: Drug form: Ki 00 TAB, Daily, Dosing Weight 70.455, kg, Start date: 09/17/17 9:00:00 CDT, Duration: 30 day, Stop date: 10/16/17 9:00:00 CDT meloxicam 0 No Notes: Memori a 6- (Same as: l 14:00: Mobic) Ki Loratadine No Notes: 1 Mem oria 6-01 hr before l 14:00: meals Ki 00 (Same as: Claritin) Non-formul randall item Protonix No Notes: Memoria 6-01 Tablet l 14:00: should not Ki 00 be chewed or crushed. (Same as: Protonix) Sertraline No Notes: Memor ia 6 (Same as: l 14:00: Zoloft) Ki Omeprazole No Notes: Memor ia 6- Take 1 l 14:00: hour Ki 00 before or 2 hours after meal; Non-Formul randall Drug "Do Not Crush" (Same as: Prilosec) Minoxidil No Minoxidil Mem oria 2.5 mg 09-17 2.5 mg l tablet 14:00: tablet, 2.5 mg, 1 tab, Drug form: MISC, Route: PO, Daily, 09/17/17 9:00:00 CDT, Duration: 30 day, Stop date: 10/16/17 9:00:00 CDT Minoxidil No 2.5 mg, Memor ia 6 Route: PO, l 14:00: Drug form: Ki 00 TAB, Daily, Dosing Weight 70.455, kg, Start date: 09/17/17 9:00:00 CDT, Duration: 30 day, Stop date: 10/16/17 9:00:00 CDT meloxicam 0 No Notes: Memori a 6- (Same as: l 14:00: Mobic) Ki Loratadine No Notes: 1 Mem oria 6-01 hr before l 14:00: meals Ki 00 (Same as: Claritin) Non-formul randall item Protonix No Notes: Memoria 6-01 Tablet l 14:00: should not [place] 00 be chewed or crushed. (Same as: Protonix) Thyroxine No Notes: Memori a 6-01 Take 1 l 11:30: hour [place] 00 before or 2 hours after meal; Enteral feeds may interefere with the absorption of this medication . (Same as:Levothr oid, Synthroid) Thyroxine No Notes: Memori a 6-01 Take 1 l 11:30: hour Ki 00 before or 2 hours after meal; Enteral feeds may interefere with the absorption of this medication . (Same as:Levothr oid, Synthroid) metoprolol No Notes: Memor ia tartrate 6-01 (Same as: l 02:00: Lopressor) [place] atorvastati No Notes: Gaston emma n 6-01 (Same As: l 02:00: Lipitor) Ki Trazodone No Notes: Memori a Hydrochlori 6-01 (Same As: l de 100 MG 02:00: Desyrel) Herm christianne Oral Tablet 00 metoprolol No Notes: Memor ia tartrate 6-01 (Same as: l 02:00: Lopressor) Ki atorvastati No Notes: Gaston emma n 6-01 (Same As: l 02:00: Lipitor) [place] Trazodone No Notes: Memori a Hydrochlori 6-01 (Same As: l de 100 MG 02:00: Desyrel) Herm christianne Oral Tablet 00 Docusate No Notes: Memoria Sodium 100 5-31 (Same as: l MG Oral 22:00: Colace) [place] Capsule 00 (Do Not Crush) telmisartan No Notes: Gastno emma 5-31 Non-Formul l 22:00: randall Drug. Ki 00 (Same As: Micardis) Docusate No Notes: Memoria Sodium 100 5-31 (Same as: l MG Oral 22:00: Colace) Ki Capsule 00 (Do Not Crush) telmisartan No Notes: Gaston emma 5-31 Non-Formul l 22:00: randall Drug. [place] (Same As: Micardis) Cefazolin No Notes: Memori a 5-31 (Same As: l 21:00: Ancef, [place] 00 Kefzol) MEDICATION WASTE Product Size: 1000 mg Product Wasted: ___ mg Cefazolin No Notes: Memori a 5-31 (Same As: l 21:00: Ancef, Ki 00 Kefzol) MEDICATION WASTE Product Size: 1000 mg Product Wasted: ___ mg gabapentin No Notes: Memor ia 100 MG Oral 5-31 (Same as: l Capsule 19:00: Neurontin) Herm gabapentin No Notes: Memor ia 100 MG Oral 5-31 (Same as: l Capsule 19:00: Neurontin) Herm Hydralazine No 5 mg, Memor ia 5-31 Route: IV, l 17:57: ONCE, Dosing Weight 70.455, kg, Start date: 09/16/17 12:57:00 CDT, Stop date: 09/16/17 12:57:00 CDT Hydralazine 0 No 5 mg, Memor ia 5-31 Route: IV, l 17:57: ONCE, Dosing Weight 70.455, kg, Start date: 09/16/17 12:57:00 CDT, Stop date: 09/16/17 12:57:00 CDT fentaNYL 0 No Route: IV, Mem oria (ANES) 5-31 Drug form: l 17:02: INJ, ONCE, Stop date: 09/16/17 12:02:00 CDT fentaNYL 0 No Route: IV, Mem oria (ANES) 5-31 Drug form: l 17:02: INJ, ONCE, [place] 00 Stop date: 09/16/17 12:02:00 CDT Ancef + No Notes: Memoria Sodium 5-31 (Same As: l Chloride 17:00: Ancef, Ki 0.9% IV 100 Kefzol) mL MEDICATION WASTE Product Size: 1000 mg Product Wasted: ___ mg Ancef + No Notes: Memoria Sodium 5-31 (Same As: l Chloride 17:00: Ancef, Ki 0.9% IV 100 00 Kefzol) mL MEDICATION WASTE Product Size: 1000 mg Product Wasted: ___ mg ondansetron No Route: IV, Memoria (ANES) 5-31 Drug form: l 16:44: INJ, ONCE, [place] 00 Stop date: 09/16/17 11:44:00 CDT ondansetron No Route: IV, Memoria (ANES) 5-31 Drug form: l 16:44: INJ, ONCE, Ki 00 Stop date: 09/16/17 11:44:00 CDT Acetaminoph No Notes: Do M emoria en 5-31 not exceed l 16:34: 4 gm/day. Ki 00 (Same as: Tylenol) Lactated No 1,000 mL, Gaston emma Ringers IV - Rate: 75 l 1,000 mL 16:34: ml/hr, Ki 00 Infuse over: 13.3 hr, Route: IV, Dosing Weight 70.455 kg, Total Volume: 1,000, Start date: 09/16/17 11:34:00 CDT, Duration: 30 day, Stop date: 10/16/17 11:33:00 CDT, 1.85, m2 Acetaminoph No Notes: Do M emoria en 325 MG / 5-31 not exceed l Hydrocodone 16:34: 4gm/day of Ki Bitartrate 00 acetaminop 10 MG Oral hen. (Same Tablet as: [place] 325/10) Aluminum No Notes: Memoria Hydroxide -31 (aluminum l 40 MG/ML / 16:34: hydroxide- H ermann Magnesium 00 magnesium Hydroxide hyd- 40 MG/ML / simethicon Simethicone e 4 MG/ML 400-400-40 Oral mg/5ml 30 Suspension ml ud RILEY) Dulcolax No Notes: Memoria Laxative -31 (Same As: l 16:34: Dulcolax, [place] 00 Correctol) (Do Not Crush) "Do Not Crush" Morphine No Notes: Memoria 5-31 (Same l 16:34: as:MORPhin [place] 00 e Sulfate) Ondansetron No Notes: Gaston emma 5-31 (Same as: l 16:34: Zofran [place] 00 ODT) Diphenhydra No Notes: Gaston emma mine 5-31 (Same as: l 16:34: Benadryl) Ki 00 Naloxone No Notes: Memoria 5-31 Same as l 16:34: Narcan [place] 00 Hydromorpho No Notes: Gaston emma ne - (Same as: l 16:34: Dilaudid) conc = 0.5 mg/ml Hydromorph one [employer] Dose: ;Delay: ;Basal: Acetaminoph No Notes: Do M emoria en 5-31 not exceed l 16:34: 4 gm/day. Ki (Same as: Tylenol) Lactated No 1,000 mL, Gaston emma Ringers IV 09-16 Rate: 75 l 1,000 mL 16:34: ml/hr, Ki 00 Infuse over: 13.3 hr, Route: IV, Dosing Weight 70.455 kg, Total Volume: 1,000, Start date: 09/16/17 11:34:00 CDT, Duration: 30 day, Stop date: 10/16/17 11:33:00 CDT, 1.85, m2 Acetaminoph No Notes: Do M emoria en 325 MG / -31 not exceed l Hydrocodone 16:34: 4gm/day of [place] Bitartrate 00 acetaminop 10 MG Oral hen. (Same Tablet as: [place] 325/10) Aluminum No Notes: Memoria Hydroxide - (aluminum l 40 MG/ML / 16:34: hydroxide- H ermann Magnesium 00 magnesium Hydroxide hyd- 40 MG/ML / simethicon Simethicone e 4 MG/ML 400-400-40 Oral mg/5ml 30 Suspension ml ud RILEY) Dulcolax No Notes: Memoria Laxative - (Same As: l 16:34: Dulcolax, Ki 00 Correctol) (Do Not Crush) "Do Not Crush" Morphine No Notes: Memoria 5-31 (Same l 16:34: as:MORPhin e Sulfate) Ondansetron No Notes: Gaston emma 5-31 (Same as: l 16:34: Zofran ODT) Diphenhydra No Notes: Gaston emma mine 5-31 (Same as: l 16:34: Benadryl) Naloxone No Notes: Memoria 5-31 Same as l 16:34: Narcan Hydromorpho No Notes: Gaston emma ne 5-31 (Same as: l 16:34: Dilaudid) conc = 0.5 mg/ml Hydromorph one [employer] Dose: ;Delay: ;Basal: dexamethaso No Route: IV, Memoria ne (ANES) 5-31 Drug form: l 16:16: INJ, ONCE, Stop date: 09/16/17 11:16:00 CDT dexamethaso No Route: IV, Memoria ne (ANES) 5-31 Drug form: l 16:16: INJ, ONCE, Stop date: 09/16/17 11:16:00 CDT phenylephri No Route: IV, Memoria ne (ANES) 5-31 Drug form: l 15:46: INJ, ONCE, Stop date: 09/16/17 10:46:00 CDT phenylephri No Route: IV, Memoria ne (ANES) 5-31 Drug form: l 15:46: INJ, ONCE, Stop date: 09/16/17 10:46:00 CDT acetaminoph No Route: IV, Memoria en (ANES) 5-31 Drug form: l 10 mg 15:33: INJ, Start William n date: 09/16/17 10:33:00 CDT, Stop date: 09/16/17 11:33:00 CDT acetaminoph No Route: IV, Memoria en (ANES) 5-31 Drug form: l 10 mg 15:33: INJ, Start William n 00 date: 09/16/17 10:33:00 CDT, Stop date: 09/16/17 11:33:00 CDT rocuronium 2017-0 No Route: IV, M emoria (ANES) 09-16 Drug form: l 15:26: INJ, ONCE, Stop date: 09/16/17 10:26:00 CDT rocuronium 2017-0 No Route: IV, M emoria (ANES) 09-16 Drug form: l 15:26: INJ, ONCE, Stop date: 09/16/17 10:26:00 CDT ePHEDrine 2017-0 No Route: IV, Me moria (ANES) 09-16 Drug form: l 15:21: INJ, ONCE, Stop date: 09/16/17 10:21:00 CDT ePHEDrine 2017-0 No Route: IV, Me [...] INJ, ONCE, Stop date: 09/16/17 9:21:00 CDT niCARdipine 2017-0 No Route: IV, Memoria (ANES) - Drug form: l 14:21: INJ, ONCE, Stop date: 09/16/17 9:21:00 CDT ePHEDrine 2017-0 No Route: IV, Me moria (ANES) - Drug form: l 14:12: INJ, ONCE, Stop date: 09/16/17 9:12:00 CDT ePHEDrine 2017-0 No Route: IV, Me [...] INJ, ONCE, Stop date: 09/16/17 9:11:00 CDT rocuronium 2017-0 No Route: IV, M emoria (ANES) 09-16 Drug form: l 14:11: INJ, ONCE, Stop date: 09/16/17 9:11:00 CDT propofol 2018-0 No Route: IV, Mem oria (ANES) 09-16 [...] ceFAZolin No Route: IV, Me moria (ANES) - Drug form: l 14:06: INJ, ONCE, Stop date: 09/16/17 9:06:00 CDT ceFAZolin No Route: IV, Me moria (ANES) 09-16 Drug form: l 14:06: INJ, ONCE, Stop date: 09/16/17 9:06:00 CDT phenylephri No Route: IV, Memoria ne (ANES) 09-16 Drug form: l 13:55: INJ, ONCE, Stop date: 09/16/17 8:55:00 CDT phenylephri No Route: IV, Memoria ne (ANES) 09-16 Drug form: l 13:55: INJ, ONCE, Stop date: 09/16/17 8:55:00 CDT Zofran ODT No Notes: Memor ia -31 (Same as: l 13:25: Zofran ODT) Zofran ODT No Notes: Memor ia -31 (Same as: l 13:25: Zofran ODT) propofol No Route: IV, Mem oria (ANES) 10 09-16 Drug form: l mg 13:22: INJ, Start date: 09/16/17 8:22:00 CDT, Stop date: 09/16/17 9:22:00 CDT propofol No Route: IV, Mem oria (ANES) 10 09-16 Drug form: l mg 13:22: INJ, Start date: 09/16/17 8:22:00 CDT, Stop date: 09/16/17 9:22:00 CDT Dexamethaso No Notes: Gaston emma ne - Concentrat l 13:17: ion: Ki 00 4mg/ml Ondansetron No Notes: Gaston emma -31 (Same as: l 13:17: Zofran) MEDICATION WASTE [...] or times, Stop date: 09/16/17 17:00:00 CDT Dexamethaso No Notes: Gaston emma ne 09-16 Concentrat l 13:17: ion: 4mg/ml Ondansetron No Notes: Gaston emma 09-16 (Same as: l 13:17: Zofran) MEDICATION WASTE Product Size: 4 mg Product Wasted: ___ mg Naloxone No Notes: Memoria 09-16 Same as l 13:17: Narcan Flumazenil No Notes: Memor ia 09-16 (Same as: l 13:17: Romazicon) Oxycodone No Notes: Memori a - (Same as: l 13:17: Roxicodone ) Hydromorpho No Notes: Gaston emma ne 09-16 Same as l 13:17: Dilaudid Morphine No Notes: Memoria 09-16 (Same l 13:17: as:MORPhin e Sulfate) Acetaminoph No Notes: Max Memoria en 09-16 acetaminop l 13:17: hen 4000 Ki 00 mg/day (4 gm/day). (Same as: Tylenol Extra Strength) Labetalol No 10 mg, 2 Gaston emma 09-16 mL, Route: l 13:17: IVP, Drug Ki 00 form: INJ, Q5Min, Dosing Weight 70.455, kg, PRN Elevated BP, Start date: 09/16/17 8:17:00 CDT, Duration: 5 doses or times, Stop date: 09/16/17 17:00:00 CDT Lactated No Route: IV, Mem oria Ringers 09-16 Total l Injection 12:45: Volume: Jayna nn IV (ANES) 00 1,000, 1000 mL Start date: 09/16/17 7:45:00 CDT, Stop date: 09/16/17 8:45:00 CDT Lactated No Route: IV, Mem oria Ringers 09-16 Total l Injection 12:45: Volume: Jayna nn IV (ANES) 00 1,000, 1000 mL Start date: 09/16/17 7:45:00 CDT, Stop date: 09/16/17 8:45:00 CDT Cefazolin No Notes: Memori a 09-16 Same as: l 11:11: Ancef [place] 00 Cefazolin No Notes: Memori a 09-16 Same as: l 11:11: Ancef Ki Trazodone Yes 50 mg = Memor ia Hydrochlori 5-11 0.5 tab, l de 100 MG 17:16: PO, [place] Oral Tablet 00 Bedtime, # 30 tab, 1 Refill(s) Trazodone Yes 50 mg = Memor ia Hydrochlori 5-11 0.5 tab, l de 100 MG 17:16: PO, Ki Oral Tablet 00 Bedtime, # 30 tab, 1 Refill(s) telmisartan 2018-0 Yes 80 mg = 1 M emoria 80 mg oral 5-11 tab, PO, l tablet 17:15: QPM, # 30 William n 00 tab, 3 Refill(s) telmisartan 2018-0 Yes 80 mg = 1 M emoria 80 mg oral 5-11 tab, PO, l tablet 17:15: QPM, # 30 William n 00 tab, 3 Refill(s) solifenacin 2018-0 Yes 10 mg = 1 M emoria 10 mg oral 5-11 tab, PO, l tablet 17:08: Daily, # [place] 00 30 tab, 1 Refill(s) sertraline 2018-0 Yes 150 mg = Mem oria 100 mg oral 5-11 1.5 tab, l tablet 17:08: PO, Daily, Jayna nn 00 # 30 tab, 0 Refill(s) omeprazole 2018-0 Yes 40 mg = 1 Me moria 40 mg oral 5-11 cap, PO, l delayed 17:08: Daily, Ki release 00 take DOS, capsule # 30 cap, 0 Refill(s) solifenacin 2018-0 Yes 10 mg = 1 M emoria 10 mg oral 5-11 tab, PO, l tablet 17:08: Daily, # [place] 00 30 tab, 1 Refill(s) sertraline 2018-0 Yes 150 mg = Mem oria 100 mg oral 5-11 1.5 tab, l tablet 17:08: PO, Daily, Jayna nn 00 # 30 tab, 0 Refill(s) omeprazole 2018-0 Yes 40 mg = 1 Me moria 40 mg oral 5-11 cap, PO, l delayed 17:08: Daily, Ki release 00 take DOS, capsule # 30 cap, 0 Refill(s) minoxidil 2018-0 Yes 2.5 mg = 1 Me moria 2.5 mg oral 5-11 tab, PO, l tablet 17:07: Daily, # [place] 00 180 tab, 3 Refill(s) metoprolol 2018-0 Yes 50 mg = 1 Me moria 50 mg oral 5-11 tab, PO, l tablet, 17:07: BID, take Jayna nn extended 00 DOS, # 30 release tab, 0 Refill(s) meloxicam 2018-0 Yes 15 mg = 1 Mem oria 15 mg oral 5-11 tab, PO, l tablet 17:07: Daily, # [place] 00 30 tab, 0 Refill(s) minoxidil 2018-0 Yes 2.5 mg = 1 Me moria 2.5 mg oral 5-11 tab, PO, l tablet 17:07: Daily, # Ki 00 180 tab, 3 Refill(s) metoprolol 2018 Yes 50 mg = 1 Me moria 50 mg oral 5-11 tab, PO, l tablet, 17:07: BID, take Jayna nn extended 00 DOS, # 30 release tab, 0 Refill(s) meloxicam Yes 15 mg = 1 Mem oria 15 mg oral 5-11 tab, PO, l tablet 17:07: Daily, # Ki 00 30 tab, 0 Refill(s) levothyroxi Yes 100 Memori a ne 100 mcg 5-11 microgram l (0.1 mg) 17:06: = 1 tab, Jayna nn oral tablet 00 PO, Daily, take DOS, # 60 tab, 0 Refill(s) Levofloxaci 0 No 500 mg = 1 Memoria n 500 MG 5-11 tab, PO, l Oral Tablet 17:06: Q24H, # 10 [place] [Levaquin] 00 tab, 0 Refill(s) loratadine Yes 10 mg = 1 Me moria 10 mg oral 5-11 tab, PO, l tablet 17:06: Daily, # Ki 00 10 tab, 0 Refill(s) levothyroxi 0 Yes 100 Memori a ne 100 mcg 5-11 microgram l (0.1 mg) 17:06: = 1 tab, Jayna nn oral tablet 00 PO, Daily, take DOS, # 60 tab, 0 Refill(s) Levofloxaci 2017-0 No 500 mg = 1 Memoria n 500 MG 5-11 tab, PO, l Oral Tablet 17:06: Q24H, # 10 Ki [Levaquin] 00 tab, 0 Refill(s) loratadine 2017-0 Yes 10 mg = 1 Me moria 10 mg oral 5-11 tab, PO, l tablet 17:06: Daily, # [place] 00 10 tab, 0 Refill(s) gabapentin Yes 100 mg = 1 M emoria 100 MG Oral 5-11 cap, PO, l Capsule 17:05: TID, # 90 Jayna nn 00 cap, 1 Refill(s) Vitamin D2 2018-0 Yes 50,000 Memor ia 50,000 intl 5-11 IntlUnit = l units oral 17:05: 1 cap, PO, H ermann capsule 00 qWeek, # 24 cap, 0 Refill(s) clopidogrel 2018-0 No 75 mg = 1 M emoria 75 mg oral 5-11 tab, PO, l tablet 17:05: Daily, # Ki 00 30 tab, 0 Refill(s) atorvastati 2017-0 Yes 40 mg = 1 M emoria n 40 mg 5-11 tab, PO, l oral tablet 17:05: Bedtime, # Ki 00 30 tab, 0 Refill(s) gabapentin 2017-0 Yes 100 mg = 1 M emoria 100 MG Oral 5-11 cap, PO, l Capsule 17:05: TID, # 90 Jayna nn 00 cap, 1 Refill(s) Vitamin D2 2017-0 Yes 50,000 Memor ia 50,000 intl 5-11 IntlUnit = l units oral 17:05: 1 cap, PO, H ermann capsule 00 qWeek, # 24 cap, 0 Refill(s) clopidogrel 2017-0 No 75 mg = 1 M emoria 75 mg oral 5-11 tab, PO, l tablet 17:05: Daily, # Ki 00 30 tab, 0 Refill(s) atorvastati 2018-0 Yes 40 mg = 1 M emoria n 40 mg 5-11 tab, PO, l oral tablet 17:05: Bedtime, # [place] 00 30 tab, 0 Refill(s) Immunizations Ordered Immunization Filled Immunization Date Status Commen ts Source Name Name FLUZONE HIGH-DOSE PF 2019-12-28 Completed [facility] FLUZONE HIGH-DOSE PF 2019-12-28 Completed [facility]:00 Hospital FLUZONE HIGH-DOSE PF 2019-02-20 Completed [facility] odist 00:00:00 [facility] FLUZONE HIGH-DOSE PF 2019-02-20 Completed [facility] 00:00:00 Hospital Pneumococcal 2018-07-29 Completed [facility] Polysaccharide 00:00:00 [facility] Pneumococcal 2018-07-29 Completed [facility] Polysaccharide 00:00:00 Hospital FLUZONE QUAD 2018-01-17 Completed [facility] INTRADERMAL PF 00:00:00 Hospital FLUZONE QUAD 2018-01-17 Completed [facility] INTRADERMAL PF 00:00:00 Hospital FLUZONE HIGH-DOSE PF 2017-03-24 Completed [facility] 00:00:00 Hospital FLUZONE HIGH-DOSE PF 2017-03-24 Completed [facility] 00:00:00 Hospital Pneumococcal 2016-08-06 Completed [facility] Conjugate 13-Valent 00:00:00 [facility] te[facility]oro Pneumococcal 2016-08-06 Completed [facility] Conjugate 13-Valent 00:00:00 [facility] te[facility] FLUZONE HIGH-DOSE PF 2016-02-21 Completed [facility] 00:00:00 Hospital FLUZONE HIGH-DOSE PF 2016-02-21 Completed [facility] odist 00:00:00 [facility] Influenza (IM) 2013-04-21 Completed [facility] Preservative Free 00:00:00 [facility]ospita l Influenza (IM) 2013-04-21 Completed [facility] Preservative Free 00:00:00 [facility]ospita l Pneumococcal, 2004-08-21 Completed [facility] Unspecified 00:00:00 Hospital Pneumococcal, 2004-08-21 Completed [facility] Unspecified 00:00:00 Hospital Vital Signs Vital Name Observation Time Observation Value Comments Source Heart Rate 2017-09-17 15:15:00 [facility] [place] Temperature Oral (F) 2017-09-17 15:15:00 98.8 F [facility] [place] Systolic (mm Hg) 2017-09-17 15:15:00 Gaston rial [place] Diastolic (mm Hg) 2017-09-17 15:15:00 Mem orial Ki Heart Rate 2017-09-17 13:48:00 [facility] Systolic (mm Hg) 2017-09-17 13:48:00 [place]aston rial [place] Diastolic (mm Hg) 2017-09-17 13:48:00 Mem orial Ki Heart Rate 2017-09-17 11:50:00 [facility] Systolic (mm Hg) 2017-09-17 11:50:00 [place] rial Ki Diastolic (mm Hg) 2017-09-17 11:50:00 Mem orial Ki Respitory Rate 2017-09-17 11:50:00 Memori al Ki Temperature Oral (F) 2017-09-17 11:50:00 98.5 F [facility] Respitory Rate 2017-09-17 08:45:00 Memori al [place] Temperature Oral (F) 2017-09-17 08:45:00 98.4 F [facility] Respitory Rate 2017-09-17 04:15:00 [facility] Ki Height 2017-09-16 11:16:00 172.72 cm [facility] [place] Weight 2017-09-16 11:16:00 [facility] [place] BMI Calculated 2017-09-16 11:16:00 Memori al Ki BMI Calculated 2017-08-27 17:19:00 [facility] al Ki Weight 2017-08-27 17:19:00 [facility] Height 2017-08-26 18:24:00 172.72 cm [facility] [place] Procedures Procedure Date / Time Performed Performing Clinician [facility] juan luis Cataract extraction and [facility] insertion of intraocular lens Hysterectomy [facility] [place] ORIF - Open reduction and Memori al Ki internal fixation of fracture Spinal fusion [facility] [place] Suspension of bladder [facility] H ermann Plan of Care Planned Activity Planned Date Details Comments Source Future Scheduled 2022-08-13 [facility] (#1) [code = COVID-19 VACCINE (#1)] Future Scheduled 2022-08-13 [facility]INGLES [facility]ACCINES [facility] Test 11:33:11 (1 of 2) [code = SHINGLES VACCINES (1 of 2)] Future Scheduled 2022-08-13 INFLUENZA VACCINE [facility] Test 11:33:11 [code = INFLUENZA VACCINE] Future Scheduled 2022-02-10 [facility] B [facility] Test 15:58:40 VACCINES (1 of 3 - 3-dose series) [code = HEPATITIS B VACCINES (1 of 3 - 3-dose series)] Future Scheduled 2022-02-10 [facility]40 (#1) [code = COVID-19 VACCINE (#1)] Future Scheduled 2022-02-10 SHINGLES VACCINES [facility] Test 15:58:40 (1 of 2) [code = SHINGLES VACCINES (1 of 2)] Future Scheduled 2022-02-10 INFLUENZA VACCINE [facility] Test 15:58:40 [code = INFLUENZA VACCINE] Encounters Start End Encounter Admission Attending Care Care Encounter Source Date/Time Date/Time Type Type Clinicians Facility Department ID 2021-08-13 2021-08-13 Refill [place]al[place], 1.2.840.1 [id number] Methodi 00:00:00 00:00:[id number] 3.430.2.7 Hospit a .3.525007 l .8 2021-08-13 2021-08-13 Refill [place], 1.2.840.1 [id number] Methodi 00:00:00 00:00:[id number] 3.430.2.7 Hospit a .3.462205 l .8 2020-04-26 2020-04-26 [facility] [id number] [place] 00:00:00 00:00:00 BRANKA 957 Method i 2020-04-26 2020-04-26 Outpatient [facility] [id number] [place] 00:00:00 00:00:00 BRANKA 768 Method i 2020-01-19 2020-01-19 Outpatient [facility] [id number] [place] 00:00:00 00:00:00 BRANKA 507 Method i 2019-12-20 2019-12-20 Outpatient [facility] [id number] [place] 00:00:00 00:00:00 BRANKA 830 Method i 2019-09-21 2019-09-21 Outpatient [facility] [id number] [place] 00:00:00 00:00:00 BRANKA 173 Method i 2017-09-16 2017-09-17 Inpatient nullFlavo [facility] [id number] Memoria 10:33:00 18:53:00 r Ki 02 l Orthopedic Jayna and Spine [facility] 2017-09-16 2017-09-17 Inpatient nullFlavo [facility] [id number] Memoria 10:33:00 18:53:00 r Ki 02 l Orthopedic Jayna and Spine [facility] 2017-09-16 2017-09-17 Outpatient [facility] [id number] 05:33:00 13:53:00 , Caden 2017-08-11 2017-08-12 Outpt Diag nullFlavo [facility] [id number] Memoria 17:20:00 04:59:00 Services r Outpatient 00 l Imaging - [facility] 2017-08-11 2017-08-12 Outpt Diag nullFlavo [facility] [id number] Memoria 17:20:00 04:59:00 Services r Outpatient 00 l Imaging Hansa [facility] 2017-08-11 2017-08-11 Outpatient [place] [id number] 12:20:00 23:59:00 , Caden 00 2017-07-23 2017-07-24 [place] [id number] Memoria 16:07:00 04:59:00 r Ki 00 l [facility] 2017-07-23 2017-07-24 Outpatient [place] [id number] Memoria 16:07:00 04:59:00 r [place] 00 l [facility] 2017-07-23 2017-07-23 Outpatient Tc [facility] [id number] 11:07:00 23:59:00 , Caden 00 Results Test Description Test Time Test Comments Results Result Comments Source CHEM PANEL 2017-09-17 08:44:00 Test Item Value Reference Range Interpretation Comme nts Sodium Lvl (test code = Sodium Lvl) 141 135-145 [facility] [id number] 08:44:00 Test Item Value Reference Range Interpretation Comments Glucose Lvl (test code = Glucose Lvl) 134 70-99 [facility] [place] [id number] 08:44:00 Test Item Value Reference Range Interpretation Comments AGAP (test code = AGAP) 10.1 10.0-20.0 [facility] [id number] 08:44:00 Test Item Value Reference Range Interpretation Comments Hgb (test code = Hgb) 9.5 12.0-16.0 [facility] [id number] 08:44:00 Test Item Value Reference Range Interpretation Comments Hct (test code = Hct) 28.2 36.0-48.0 [facility] [place] [employer] [id number] 08:44:00 Test Item Value Reference Range Interpretation Comments Calcium Lvl (test code = Calcium Lvl) 8.4 8.5-10.5 [facility]2018-06-01 08:44:00 Test Item Value Reference Range Interpretation Comments CO2 (test code = CO2) 28 [facility]2018-06-01 08:44:00 Test Item Value Reference Range Interpretation Comments Chloride Lvl (test code = Chloride Lvl) 107 95-109 [facility]2018-06-01 08:44:00 Test Item Value Reference Range Interpretation Comments CO2 (test code = CO2) [facility]2018-06-01 08:44:00 Test Item Value Reference Range Interpretation Comments Chloride Lvl (test code = Chloride Lvl) 107 95-109 [facility]2018-06-01 08:44:00 Test Item Value Reference Range Interpretation Comments Creatinine Lvl (test code = Creatinine 0.96 0.50-1.40 Lvl) [facility]2018-06-01 08:44:00 Test Item Value Reference Range Interpretation Comments BUN (test code = BUN) 19 7-22 [facility]2018-06-01 08:44:00 Test Item Value Reference Range Interpretation Comments eGFR (test code = eGFR) 55 [facility]2018-06-01 08:44:00 Test Item Value Reference Range Interpretation Comments Potassium Lvl (test code = Potassium 4.1 3.5-5.1 Lvl) [facility]2018-06-01 08:44:00 Test Item Value Reference Range Interpretation Comments Sodium Lvl (test code = Sodium Lvl) 141 135-145 [facility]2018-06-01 08:44:00 Test Item Value Reference Range Interpretation Comments Glucose Lvl (test code = Glucose Lvl) 134 70-99 [facility]2018-06-01 08:44:00 Test Item Value Reference Range Interpretation Comments AGAP (test code = AGAP) 10.1 10.0-20.0 [id number] 08:44:00 Test Item Value Reference Range Interpretation Comments Hgb (test code = Hgb) 9.5 12.0-16.0 [facility] Hospit[id number] 08:44:00 Test Item Value Reference Range Interpretation Comments Hct (test code = Hct) 28.2 36.0-48.0 [facility]2018-06-01 08:44:00 Test Item Value Reference Range Interpretation Comments Calcium Lvl (test code = Calcium Lvl) 8.4 8.5-10.5 [facility] [id number] 08:44:00 Test Item Value Reference Range Interpretation Comments Creatinine Lvl (test code = Creatinine 0.96 0.50-1.40 Lvl) [facility] [id number] 08:44:00 Test Item Value Reference Range Interpretation Comments BUN (test code = BUN) 19 7-22 [facility] [id number] 08:44:00 Test Item Value Reference Range Interpretation Comments eGFR (test code = eGFR) 55 [facility] [id number] 08:44:00 Test Item Value Reference Range Interpretation Comments Potassium Lvl (test code = Potassium 4.1 3.5-5.1 Lvl) [facility] [id number] 11:10:00 Test Item Value Reference Range Interpretation Comments Antibody Scrn (test Negative (09/16/17 6:10 code = Antibody Scrn) AM) [facility] [id number] 11:10:00 Test Item Value Reference Range Interpretation Comments ABO/Rh (test code = ABO/Rh) A POS [facility] [employer] [facility] [id number] 11:10:00 Test Item Value Reference Range Interpretation Comments Antibody Scrn (test Negative (09/16/17 6:10 code = Antibody Scrn) AM) [facility] [id number] 11:10:00 Test Item Value Reference Range Interpretation Comments ABO/Rh (test code = ABO/Rh) A POS [facility] [id number] 10:00:00 Test Item Value Reference Range Interpretation Comments RBC product (test code Product available = RBC product) (09/16/17 5:00 AM) [facility] [id number] 10:00:00 Test Item Value Reference Range Interpretation Comments RBC product (test code Product available = RBC product) (09/16/17 5:00 AM) [facility] [id number] 17:50:00 Test Item Value Reference Range Interpretation Comments Eosinophils (test code = 3.4 See_Comment [A utomated message] The Eosinophils) system which ge nerated this result tra nsmitted reference range : <=4.0. The reference r skyler was not used to int erpret this result as normal/abnormal . [facility] H[id number] 17:50:00 Test Item Value Reference Range Interpretation Comments Lymphocytes (test code = Lymphocytes) 23.1 20.0-40.0 [facility] Hospit[id number] 17:50:00 Test Item Value Reference Range Interpretation Comments Monocytes (test code = Monocytes) 6.6 2.0-12.0 [facility] HospitalMisgjhrCMXGMSBSFY4688-22-08 17:50:00 Test Item Value Reference Range Interpretation Comments Eosinophils # (test code 0.2 See_Comment [A utomated message] The = Eosinophils #) system whic h generated this result tra nsmitted reference range : <=0.5. The reference r skyler was not used to int erpret this result as normal/abnormal . [facility] H[id number] 17:50:00 Test Item Value Reference Range Interpretation Comments Monocytes # (test code 0.4 See_Comment [Aut omated message] The = Monocytes #) system which generated this result tra nsmitted reference range : <=0.8. The reference r skyler was not used to int erpret this result as normal/abnormal . [facility] HospitalCqnweadRNQMLZBXKB3888-11-86 17:50:00 Test Item Value Reference Range Interpretation Comments Lymphocytes # (test code = Lymphocytes 1.4 1.0-5.5 #) [facility] H[id number] 17:50:00 Test Item Value Reference Range Interpretation Comments Segs-Bands # (test code = Segs-Bands #) 4.0 1.5-8.1 [facility] Ho[id number] 17:50:00 Test Item Value Reference Range Interpretation Comments INR (test code = INR) 1.02 1 0.85-1.17 [facility] [id number] 17:50:00 Test Item Value Reference Range Interpretation Comments PROTIME (test code = PROTIME) 13.4 s 12.0-14.7 [facility] HospitalEzzjhgcZAYQJQHTPB5921-22-11 17:50:00 Test Item Value Reference Range Interpretation Comments aPTT (test code = aPTT) 28.3 s 22.9-35.8 [facility] H[id number] 17:50:00 Test Item Value Reference Range Interpretation Comments Hct (test code = Hct) 37.2 36.0-48.0 [facility] H[id number] 17:50:00 Test Item Value Reference Range Interpretation Comments MCV (test code = MCV) 79.3 80.0-98.0 [facility] H[id number] 17:50:00 Test Item Value Reference Range Interpretation Comments MCH (test code = MCH) 26.5 pg 27.0-31.0 [facility] HospitalOdhgovrWGGGRDITCE2686-12-56 17:50:00 Test Item Value Reference Range Interpretation Comments MCHC (test code = MCHC) 33.4 32.0-36.0 [facility] HospitalQ[id number] 17:50:00 Test Item Value Reference Range Interpretation Comments Platelet (test code = Platelet) 145 133-450 [facility] Hospit[id number] 17:50:00 Test Item Value Reference Range Interpretation Comments RDW (test code = RDW) 13.6 11.5-14.5 [facility] H[id number] 17:50:00 Test Item Value Reference Range Interpretation Comments MPV (test code = MPV) 9.3 7.4-10.4 [facility] [id number] 17:50:00 Test Item Value Reference Range Interpretation Comments WBC (test code = WBC) 6.0 3.7-10.4 [facility] [id number] 17:50:00 Test Item Value Reference Range Interpretation Comments RBC (test code = RBC) 4.69 4.20-5.40 [facility] H[id number] 17:50:00 Test Item Value Reference Range Interpretation Comments Hgb (test code = Hgb) 12.4 12.0-16.0 [facility] AND [id number] 17:50:00 Test Item Value Reference Range Interpretation Comments UA Turbidity (test code = Clear (08/27/17 12:50 UA Turbidity) PM) [facility] AND [id number] 17:50:00 Test Item Value Reference Range Interpretation Comments UA Color (test code = Yellow *NA*(08/27/17 UA Color) 12:50 PM) [facility] AND [id number] 17:50:00 Test Item Value Reference Range Interpretation Comments UA Blood (test code = Negative (08/27/17 12:50 UA Blood) PM) [facility] AND [id number] 17:50:00 Test Item Value Reference Range Interpretation Comments UA Ketones (test code = UA Negative mg/dL Ketones) [facility] AND [id number] 17:50:00 Test Item Value Reference Range Interpretation Comments UA Bili (test code = Negative *NA*(08/27/17 UA Bili) 12:50 PM) [facility] AND [id number] 17:50:00 Test Item Value Reference Range Interpretation Comments UA Glucose (test code = UA Negative mg/dL Glucose) [facility] AND [id number] 17:50:00 Test Item Value Reference Range Interpretation Comments UA Protein (test code = UA Negative mg/dL Protein) [facility] AND [id number] 17:50:00 Test Item Value Reference Range Interpretation Comments UA Spec Grav (test code = UA Spec 1.010 1 Grav) [facility] AND [id number] 17:50:00 Test Item Value Reference Range Interpretation Comments UA pH (test code = UA pH) 6.0 1 5.0-8.0 [facility] AND [id number] 17:50:00 Test Item Value Reference Range Interpretation Comments UA Nitrite (test code Negative (08/27/17 12:50 = UA Nitrite) PM) [facility] AND [id number] 17:50:00 Test Item Value Reference Range Interpretation Comments UA Urobilinogen (test code = UA 0.2 0.1-1.0 Urobilinogen) [facility] AND [id number] 17:50:00 Test Item Value Reference Range Interpretation Comments UA Leuk Est (test Negative (08/27/17 12:50 code = UA Leuk Est) PM) [facility] AND [id number] 17:50:00 Test Item Value Reference Range Interpretation Comments UA Sq Epi (test code = None Seen (08/27/17 UA Sq Epi) 12:50 PM) [facility] AND [id number] 17:50:00 Test Item Value Reference Range Interpretation Comments UA RBC (test None Seen See_Comment [Automated mes candy] code = UA RBC) (08/27/17 12:50 The system which PM) generated this result transmitted ref erence range: <=2. The reference range was not used to int erpret this result as normal/abnormal . [facility] [id number] 17:50:00 Test Item Value Reference Range Interpretation Comments UA WBC (test code = UA WBC) 0-2 /HPF [facility] [id number] 17:50:00 Test Item Value Reference Range Interpretation Comments UA Bacteria (test code = UA Occasional /HPF Bacteria) [facility] [id number] 17:50:00 Test Item Value Reference Range Interpretation Comments ABO/Rh (test code = ABO/Rh) A POS [facility] [id number] 17:50:00 Test Item Value Reference Range Interpretation Comments Antibody Scrn (test Negative (08/27/17 code = Antibody Scrn) 12:50 PM) [employer] [id number] 17:50:00 Test Item Value Reference Range Interpretation Comments eGFR (test code = eGFR) 61 [employer] [id number] 17:50:00 Test Item Value Reference Range Interpretation Comments ASPARTATE TRANSAMINASE 19 See_Comment [Aut omated message] (test code = ASPARTATE The s ystem which TRANSAMINASE) generated this result transmitted ref erence range: <=37. Th e reference range was not used to interpr et this result as normal/abnormal . [employer] [id number] 17:50:00 Test Item Value Reference Range Interpretation Comments Alk Phos (test code = Alk Phos) 67 39-136 [facility] [employer] [id number] 17:50:00 Test Item Value Reference Range Interpretation Comments ABO/Rh (test code = ABO/Rh) A POS [facility] [id number] 17:50:00 Test Item Value Reference Range Interpretation Comments Antibody Scrn (test Negative (08/27/17 code = Antibody Scrn) 12:50 PM) [employer] [id number] 17:50:00 Test Item Value Reference Range Interpretation Comments eGFR (test code = eGFR) 61 [employer] [id number] 17:50:00 Test Item Value Reference Range Interpretation Comments ASPARTATE TRANSAMINASE 19 See_Comment [Aut omated message] (test code = ASPARTATE The s ystem which TRANSAMINASE) generated this result transmitted ref erence range: <=37. Th e reference range was not used to interpr et this result as normal/abnormal . [facility]2018-05-11 17:50:00 Test Item Value Reference Range Interpretation Comments Alk Phos (test code = Alk Phos) 67 39-136 [facility]2018-05-11 17:50:00 Test Item Value Reference Range Interpretation Comments ALANINE AMINOTRANSFERASE 19 See_Comment [A utomated message] (test code = ALANINE The sys tem which AMINOTRANSFERASE) generated this result transmitted ref erence range: <=65. Th e reference range was not used to int erpret this result as normal/abnormal . [facility]2018-05-11 17:50:00 Test Item Value Reference Range Interpretation Comments Bili Total (test code = Bili Total) 0.7 0.2-1.3 [facility]2018-05-11 17:50:00 Test Item Value Reference Range Interpretation Comments Albumin Lvl (test code = Albumin Lvl) 3.7 3.5-5.0 [facility]2018-05-11 17:50:00 Test Item Value Reference Range Interpretation Comments ALANINE AMINOTRANSFERASE 19 See_Comment [A utomated message] (test code = ALANINE The sys tem which AMINOTRANSFERASE) generated this result transmitted ref erence range: <=65. Th e reference range was not used to int erpret this result as normal/abnormal . [facility]2018-05-11 17:50:00 Test Item Value Reference Range Interpretation Comments Glucose Lvl (test code = Glucose Lvl) 86 70-99 [facility]2018-05-11 17:50:00 Test Item Value Reference Range Interpretation Comments Sodium Lvl (test code = Sodium Lvl) 144 135-145 [facility]2018-05-11 17:50:00 Test Item Value Reference Range Interpretation Comments Potassium Lvl (test code = Potassium 4.2 3.5-5.1 Lvl) [facility]2018-05-11 17:50:00 Test Item Value Reference Range Interpretation Comments Creatinine Lvl (test code = Creatinine 0.88 0.50-1.40 Lvl) [facility]2018-05-11 17:50:00 Test Item Value Reference Range Interpretation Comments BUN (test code = BUN) 14 7-22 [place] [id number] 17:50:00 Test Item Value Reference Range Interpretation Comments Calcium Lvl (test code = Calcium Lvl) 8.7 8.5-10.5 [place] [id number] 17:50:00 Test Item Value Reference Range Interpretation Comments CO2 (test code = CO2) 30 24-32 [place] [id number] 17:50:00 Test Item Value Reference Range Interpretation Comments Total Protein (test code = Total 6.6 6.4-8.4 Protein) [facility]2018-05-11 17:50:00 Test Item Value Reference Range Interpretation Comments Chloride Lvl (test code = Chloride Lvl) 107 95-109 [facility]2018-05-11 17:50:00 Test Item Value Reference Range Interpretation Comments B/C Ratio (test code = B/C Ratio) 16 1 6-25 [place] [id number] 17:50:00 Test Item Value Reference Range Interpretation Comments Globulin (test code = Globulin) 2.9 2.7-4.2 [place] [id number] 17:50:00 Test Item Value Reference Range Interpretation Comments AGAP (test code = AGAP) 11.2 10.0-20.0 [place] [id number] 17:50:00 Test Item Value Reference Range Interpretation Comments A/G Ratio (test code = A/G Ratio) 1.3 1 0.7-1.6 [place] [id number] 17:50:00 Test Item Value Reference Range Interpretation Comments Basophils (test code = 0.6 See_Comment [Aut omated message] The Basophils) system which ge nerated this result tra nsmitted reference range : <=1.0. The reference r skyler was not used to int erpret this result as normal/abnormal . [id number] 17:50:00 Test Item Value Reference Range Interpretation Comments Segs (test code = Segs) 66.3 45.0-75.0 [facility]KoefytoGGMPKWQRXO4937-02-55 17:50:00 Test Item Value Reference Range Interpretation Comments Eosinophils (test code = 3.4 See_Comment [A utomated message] The Eosinophils) system which ge nerated this result tra nsmitted reference range : <=4.0. The reference r skyler was not used to int erpret this result as normal/abnormal . [facility]AmfewaiPJYPXYYSSD6952-04-17 17:50:00 Test Item Value Reference Range Interpretation Comments Lymphocytes (test code = Lymphocytes) 23.1 20.0-40.0 [facility] HospitalWhgxfphLKKGUHGCGK8735-56-43 17:50:00 Test Item Value Reference Range Interpretation Comments Monocytes (test code = Monocytes) 6.6 2.0-12.0 [facility] HospitalHxwffsgSGTLOMBWRB2867-39-03 17:50:00 Test Item Value Reference Range Interpretation Comments Eosinophils # (test code 0.2 See_Comment [A utomated message] The = Eosinophils #) system wh h generated this result tra nsmitted reference range : <=0.5. The reference r skyler was not used to int erpret this result as normal/abnormal . [facility] HospitalUjlkiojHTAMMAYENC7014-46-11 17:50:00 Test Item Value Reference Range Interpretation Comments Monocytes # (test code 0.4 See_Comment [Aut omated message] The = Monocytes #) system which generated this result tra nsmitted reference range : <=0.8. The reference r skyler was not used to int erpret this result as normal/abnormal . [facility] HospitalJswibvqNLRTQATGSP5131-80-07 17:50:00 Test Item Value Reference Range Interpretation Comments Lymphocytes # (test code = Lymphocytes 1.4 1.0-5.5 #) [facility] HospitalJsyjutqIRROCFYOTW6092-29-50 17:50:00 Test Item Value Reference Range Interpretation Comments Segs-Bands # (test code = Segs-Bands #) 4.0 1.5-8.1 [facility] HospitalNipvbeaZXXRYHDNOU1779-84-89 17:50:00 Test Item Value Reference Range Interpretation Comments INR (test code = INR) 1.02 1 0.85-1.17 [facility] HospitalXdpnddfXCVDXCGHRE0309-73-75 17:50:00 Test Item Value Reference Range Interpretation Comments PROTIME (test code = PROTIME) 13.4 s 12.0-14.7 [facility] HospitalFpylprkPRSTLCJROW5161-56-00 17:50:00 Test Item Value Reference Range Interpretation Comments aPTT (test code = aPTT) 28.3 s 22.9-35.8 [facility] HospitalMlonnamFBAHBNDFOG4351-09-45 17:50:00 Test Item Value Reference Range Interpretation Comments Hct (test code = Hct) 37.2 36.0-48.0 [facility] HospitalYbboqdzYLOGFFRKMB8885-03-29 17:50:00 Test Item Value Reference Range Interpretation Comments MCV (test code = MCV) 79.3 80.0-98.0 [facility] HospitalJzshnzdZBBBUKCUWJ2551-03-44 17:50:00 Test Item Value Reference Range Interpretation Comments MCH (test code = MCH) 26.5 pg 27.0-31.0 [facility] HospitalAyxnckgSZUJUOZNSL8670-72-52 17:50:00 Test Item Value Reference Range Interpretation Comments MCHC (test code = MCHC) 33.4 32.0-36.0 [facility] HospitalCjnggyaCNMKKSUDJF4266-73-72 17:50:00 Test Item Value Reference Range Interpretation Comments Platelet (test code = Platelet) 145 133-450 [facility] HospitalQvzsdhvBADNHLPACK2680-93-17 17:50:00 Test Item Value Reference Range Interpretation Comments RDW (test code = RDW) 13.6 11.5-14.5 [facility] HospitalGmbgpbeQPGRKTOSMI7267-57-71 17:50:00 Test Item Value Reference Range Interpretation Comments MPV (test code = MPV) 9.3 7.4-10.4 [facility] HospitalQwfaigkAODCGLQUAK3972-95-21 17:50:00 Test Item Value Reference Range Interpretation Comments WBC (test code = WBC) 6.0 3.7-10.4 [facility] HospitalFghprfmOBLTSQEBSB4515-28-56 17:50:00 Test Item Value Reference Range Interpretation Comments RBC (test code = RBC) 4.69 4.20-5.40 [facility] HospitalCwwzsbgVKCCCRSFND0015-01-51 17:50:00 Test Item Value Reference Range Interpretation Comments Hgb (test code = Hgb) 12.4 12.0-16.0 [facility]2018-05-11 17:50:00 Test Item Value Reference Range Interpretation Comments UA Turbidity (test code = Clear (08/27/17 12:50 UA Turbidity) PM) [facility] AND [id number] 17:50:00 Test Item Value Reference Range Interpretation Comments UA Color (test code = Yellow *NA*(08/27/17 UA Color) 12:50 PM) [facility] AND [id number] 17:50:00 Test Item Value Reference Range Interpretation Comments UA Blood (test code = Negative (08/27/17 12:50 UA Blood) PM) [facility] AND [id number] 17:50:00 Test Item Value Reference Range Interpretation Comments UA Ketones (test code = UA Negative mg/dL Ketones) [facility] AND [id number] 17:50:00 Test Item Value Reference Range Interpretation Comments UA Bili (test code = Negative *NA*(08/27/17 UA Bili) 12:50 PM) [facility] [id number] 17:50:00 Test Item Value Reference Range Interpretation Comments Bili Total (test code = Bili Total) 0.7 0.2-1.3 [facility] AND [id number] 17:50:00 Test Item Value Reference Range Interpretation Comments UA Glucose (test code = UA Negative mg/dL Glucose) [facility] AND [id number] 17:50:00 Test Item Value Reference Range Interpretation Comments UA Protein (test code = UA Negative mg/dL Protein) [facility] AND [id number] 17:50:00 Test Item Value Reference Range Interpretation Comments UA Spec Grav (test code = UA Spec 1.010 1 Grav) [facility] AND [id number] 17:50:00 Test Item Value Reference Range Interpretation Comments UA pH (test code = UA pH) 6.0 1 5.0-8.0 [facility] AND [id number] 17:50:00 Test Item Value Reference Range Interpretation Comments UA Nitrite (test code Negative (08/27/17 12:50 = UA Nitrite) PM) [facility] [id number] 17:50:00 Test Item Value Reference Range Interpretation Comments UA Urobilinogen (test code = UA 0.2 0.1-1.0 Urobilinogen) [facility] AND [id number] 17:50:00 Test Item Value Reference Range Interpretation Comments UA Leuk Est (test Negative (08/27/17 12:50 code = UA Leuk Est) PM) [facility] AND [id number] 17:50:00 Test Item Value Reference Range Interpretation Comments UA Sq Epi (test code = None Seen (08/27/17 UA Sq Epi) 12:50 PM) [facility] AND [id number] 17:50:00 Test Item Value Reference Range Interpretation Comments UA RBC (test None Seen See_Comment [Automated mes candy] code = UA RBC) (08/27/17 12:50 The system which PM) generated this result transmitted ref erence range: <=2. The reference range was not used to int erpret this result as normal/abnormal . [facility] AND [id number] 17:50:00 Test Item Value Reference Range Interpretation Comments UA WBC (test code = UA WBC) 0-2 /HPF [facility] AND [id number] 17:50:00 Test Item Value Reference Range Interpretation Comments UA Bacteria (test code = UA Occasional /HPF Bacteria) [facility]2018-05-11 17:50:00 Test Item Value Reference Range Interpretation Comments Albumin Lvl (test code = Albumin Lvl) 3.7 3.5-5.0 [facility]2018-05-11 17:50:00 Test Item Value Reference Range Interpretation Comments Glucose Lvl (test code = Glucose Lvl) 86 70-99 [facility]2018-05-11 17:50:00 Test Item Value Reference Range Interpretation Comments Sodium Lvl (test code = Sodium Lvl) 144 135-145 [facility]2018-05-11 17:50:00 Test Item Value Reference Range Interpretation Comments Potassium Lvl (test code = Potassium 4.2 3.5-5.1 Lvl) [facility]2018-05-11 17:50:00 Test Item Value Reference Range Interpretation Comments Creatinine Lvl (test code = Creatinine 0.88 0.50-1.40 Lvl) [facility]2018-05-11 17:50:00 Test Item Value Reference Range Interpretation Comments BUN (test code = BUN) 14 7-22 [facility]2018-05-11 17:50:00 Test Item Value Reference Range Interpretation Comments Calcium Lvl (test code = Calcium Lvl) 8.7 8.5-10.5 [facility]2018-05-11 17:50:00 Test Item Value Reference Range Interpretation Comments CO2 (test code = CO2) 30 24-32 [facility]2018-05-11 17:50:00 Test Item Value Reference Range Interpretation Comments Total Protein (test code = Total 6.6 6.4-8.4 Protein) [facility]2018-05-11 17:50:00 Test Item Value Reference Range Interpretation Comments Chloride Lvl (test code = Chloride Lvl) 107 95-109 [facility]2018-05-11 17:50:00 Test Item Value Reference Range Interpretation Comments B/C Ratio (test code = B/C Ratio) 16 1 6-25 [facility]2018-05-11 17:50:00 Test Item Value Reference Range Interpretation Comments Globulin (test code = Globulin) 2.9 2.7-4.2 [facility]2018-05-11 17:50:00 Test Item Value Reference Range Interpretation Comments AGAP (test code = AGAP) 11.2 10.0-20.0 [facility]2018-05-11 17:50:00 Test Item Value Reference Range Interpretation Comments A/G Ratio (test code = A/G Ratio) 1.3 1 0.7-1.6 [id number] 17:50:00 Test Item Value Reference Range Interpretation Comments Basophils (test code = 0.6 See_Comment [Aut omated message] The Basophils) system which ge nerated this result tra nsmitted reference range : <=1.0. The reference r skyler was not used to int erpret this result as normal/abnormal . [facility] H[id number] 17:50:00 Test Item Value Reference Range Interpretation Comments Segs (test code = Segs) 66.3 45.0-75.0 [facility]
--- NOTE | 2022-08-13 12:25 | RAD REPORT ---
EXAM DESCRIPTION: US - Extremity Venous Uni Ltd - 08/13/2022 12:20 pm CLINICAL HISTORY: SWELLING Leg swelling and edema. COMPARISON: Extrem Venous W Compress Akash dated 12/20/2017 FINDINGS: Left lower extremity venous system was interrogated with Doppler technique. Normal flow, c ompressibility and augmentation was noted. There is no DVT present. IMPRESSION: No evidence of left lower extremity deep venous thrombosis.
--- NOTE | 2022-08-13 13:00 | RAD REPORT ---
EXAM DESCRIPTION: RAD - Ankle Left 3 View - 08/13/2022 12:25 pm CLINICAL HISTORY: PAIN COMPARISON: No comparisons FINDINGS: Diffuse osteopenia is noted. Mild soft tissue swelling about the ankle, greatest laterally . Large calcaneal spurs are present. No fracture, dislocation or AVN.
--- NOTE | 2022-08-13 13:55 | EDPHYS ---
Physician Documentation [facility] Name: Alana Guevara Age: 87 yrs Sex: Female : 1935 Arrival Date: 08/13/2022 Time: 11:30 Bed 9 Private MD: ED Physician Kaushik Jett HPI: 08/13 11:46 This 87 yrs old Female presents to ER via Wheelchair with complaints of Ankle Injury. [facility] 11:46 The patient presents with pain. Onset: The symptoms/episode began/occurred at an [facility] unknown time. Is an 87-year-old female with history of CVA, dementia, depression, hyperlipidemia the presents emerged part with complaints of left ankle swelling. Daughter unsure if the patient fell. Denies altered mental status.. Historical: - Allergies: 11:46 meperidine HCl; ll1 11:46 Nitrofurantoin Macrocrystal; ll1 - PMHx: 11:46 Anxiety; CVA; Dementia; per daughter; depressive disorder; High Cholesterol; ll1 Hypertension; Hypothyroidism; osteoarthritis; GERD; TIA; - Immunization history:: Client reports receiving the 2nd dose of the Covid vaccine. - Social history:: Smoking status: Patient/guardian denies using tobacco, the patient reports quitting approximately 31 years ago. ROS: 11:46 Constitutional: Negative for fever, chills, and weight loss, Cardiovascular: Negative jm for chest pain, palpitations, and edema, Respiratory: Negative for shortness of breath, cough, wheezing, and pleuritic chest pain. 11:46 MS/extremity: Positive for injury or acute deformity, pain, swelling. 11:46 All other systems are negative. Exam: 11:46 Constitutional: This is a well developed, well nourished patient who is awake, alert, jmm and in no acute distress. Head/Face: atraumatic. Eyes: EOMI, no conjunctival erythema appreciated ENT: Moist Mucus Membranes Neck: Trachea midline, Supple Chest/axilla: Normal chest wall appearance and motion. Cardiovascular: Regular rate and rhythm. No edema appreciated Respiratory: Normal respirations, no respiratory distress appreciated Abdomen/GI: Non distended Back: Normal ROM Skin: General appearance color normal 11:46 Musculoskeletal/extremity: Swelling noted to the left ankle, compartments are soft, full dorsalis pedis pulse, neurovascular intact. 11:46 Skin: Appearance: Color: normal in color. 11:46 Neuro: Orientation: is normal, Mentation: is normal, Memory: is normal. 11:46 Psych: Behavior/mood is pleasant, cooperative. Vital Signs: 11:45 BP 139 / 55; Pulse 54; Resp 16; Temp 98.2; Pulse Ox 98% ; Weight 62.14 kg; Height 5 ft. ll1 8 in. ; Pain 10/10; 13:03 BP 163 / 46; Pulse 56; db 14:01 BP 145 / 89; Pulse 78; Resp 16; Pulse Ox 97% on R/A; mb9 11:45 Body Mass Index 20.83 (62.14 kg, 172.72 cm) ll1 11:45 Pain Scale: Adult ll1 MDM: 11:46 Patient medically screened. [facility] 14:26 Differential diagnosis: fracture, sprain. Data reviewed: vital signs, nurses notes, lab [facility] test result(s). I considered the following discharge prescriptions or medication management in the emergency department Medications were administered in the Emergency Department. See MAR. Independent interpretation of the following test(s) in the Emergency Department X-Ray: My interpretation is No fracture appreciated. Historians other than the Patient: daughter. Counseling: I had a detailed discussion with the patient and/or guardian regarding: the historical points, exam findings, and any diagnostic results supporting the discharge/admit diagnosis, radiology results, the need for outpatient follow up, to return to the emergency department if symptoms worsen or persist or if there are any questions or concerns that arise at home. 08/13 11:47 Order name: Ankle Left 3 View XRAY; Complete Time: 13:20 [facility] 08/13 11:47 Order name: US Extremity Venous Unilateral Ltd; Complete Time: 12:26 [facility] 08/13 13:22 Order name: Mike wrap-joint; Complete Time: 14:01 [facility] Administered Medications: No medications were administered Disposition: 19:05 Co-signature as Attending Physician, Kaushik CHILDRESS was immediately available on-site ms3 in the Emergency Department for consultation in the care of the patient. Disposition Summary: 08/13/22 13:54 Discharge Ordered Location: Home [facility] Condition: Stable [facility] Diagnosis - Sprain of ankle [facility] Followup: [facility] - With: Private Physician - When: 2 - 3 days - Reason: Recheck today's complaints, Continuance of care, Re-evaluation by your physician Discharge Instructions: - Discharge Summary Sheet jmm - Ankle Sprain jmm - RICE Therapy for Routine Care of Injuries calvin Forms: - Medication Reconciliation Form jmm - Thank You Letter liu - Antibiotic Education jmm - Prescription Opioid Use jmm - School release form mb9 - Work release form mb9 Signatures: Dispatcher [employer] EDGilberto Dominguez PA PA jmm Lewis, Lynsay, RN RN ll1 Kaushik Jett DO DO ms3
--- NOTE | 2022-08-13 13:55 | ER ---
Nurse's Notes [facility] Name: Alana Guevara Age: 87 yrs Sex: Female : 1935 Arrival Date: 08/13/2022 Time: 11:30 Bed 9 Private MD: Diagnosis: Sprain of ankle Presentation: 08/13 11:45 Chief complaint: Patient states: L ankle pain, swelling, redness, bruising to foot ll1 noticed today. Falls frequently. Coronavirus screen: Client denies travel out of the [place] in the last 14 days. At this time, the client does not indicate any symptoms associated with coronavirus-19. Ebola Screen: Patient denies travel to an Ebola-affected area in the 21 days before illness onset. Initial Sepsis Screen: Does the patient meet any 2 criteria? No. Patient's initial sepsis screen is negative. Does the patient have a suspected source of infection? No. Patient's initial sepsis screen is negative. Risk Assessment: Do you want to hurt yourself or someone else? Patient reports no desire to harm self or others. Onset of symptoms was August 13, 2022. 11:45 Method Of Arrival: Wheelchair ll1 11:45 Acuity: JAEL 3 ll1 Triage Assessment: 11:47 General: Appears uncomfortable, Behavior is calm, cooperative, appropriate for age. ll1 Pain: Complains of pain in L ankle/foot. Musculoskeletal: Reports pain in L ankle/foot. Historical: - Allergies: 11:46 meperidine HCl; ll1 11:46 Nitrofurantoin Macrocrystal; ll1 - PMHx: 11:46 Anxiety; CVA; Dementia; per daughter; depressive disorder; High Cholesterol; ll1 Hypertension; Hypothyroidism; osteoarthritis; GERD; TIA; - Immunization history:: Client reports receiving the 2nd dose of the Covid vaccine. - Social history:: Smoking status: Patient/guardian denies using tobacco, the patient reports quitting approximately 31 years ago. Assessment: 12:15 Reassessment: Patient appears in no apparent distress at this time. Patient and/or db family updated on plan of care and expected duration. Pain level reassessed. Patient is alert, oriented x 3, equal unlabored respirations, skin warm/dry/pink. left ankle pain with bruising. General: Appears in no apparent distress. comfortable, Behavior is calm, cooperative. Pain: Complains of pain in left ankle. Neuro: Level of Consciousness is awake, alert, obeys commands, Oriented to person, place, time, situation. Respiratory: Airway is patent Respiratory effort is even, unlabored, Respiratory pattern is regular, symmetrical. Vital Signs: 11:45 BP 139 / 55; Pulse 54; Resp 16; Temp 98.2; Pulse Ox 98% ; Weight 62.14 kg; Height 5 ft. ll1 8 in. ; Pain 10/10; 13:03 BP 163 / 46; Pulse 56; db 14:01 BP 145 / 89; Pulse 78; Resp 16; Pulse Ox 97% on R/A; mb9 11:45 Body Mass Index 20.83 (62.14 kg, 172.72 cm) 1 11:45 Pain Scale: Adult ll1 ED Course: 11:37 Patient arrived in ED. mr 11:38 Gilberto Cronin PA is PHCP. [facility] 11:38 Kaushik Jett DO is Attending Physician. [facility] 11:46 Triage completed. 1 11:47 Arm band placed on Patient placed in an exam room, on a stretcher. 1 12:19 Dilia Villar, RN is Primary Nurse. db 12:22 US Extremity Venous Unilateral Ltd In Process Unspecified. EDMS 12:27 Ankle Left 3 View XRAY In Process Unspecified. EDMS 14:01 No provider procedures requiring assistance completed. Patient did not have IV access david9 during this emergency room visit. Administered Medications: No medications were administered Outcome: 13:54 Discharge ordered by . [facility] 14:01 Discharged to home via wheelchair. mb9 14:01 Condition: stable 14:01 Discharge instructions given to patient, family, Instructed on discharge instructions, follow up and referral plans. Demonstrated understanding of instructions, follow-up care. 14:02 Patient left the ED. mb9 Signatures: Dispatcher [employer] EDNY Gilberto Cronin PA PA jmm Rivera, Mary mr Lewis, Lynsay, RN RN 1 Dilia Villar, RN RN Adriana Cartwright RN RN mb9 Corrections: (The following items were deleted from the chart) 11:48 11:45 Pulse 54bpm; Resp 16bpm; Pulse Ox 98%; Temp 98.2F; 62.14 kg; Height 5 ft. 8 in.; ll1 BMI: 20.8; Pain 01/26, Adult; ll1 11:48 11:45 Acuity: JAEL 4 [place] [id number]
[2022-08-13 14:06] VITALS: TEMP 98.2
[2022-08-13 14:08] VITALS: BP 145/89; O2SAT 97
== END 2022-08-13 14:02 | disposition home or self-care (01) ==
LOC: ER 11:30
DX: S93.402A Sprain of unspecified ligament of left ankle, initial encounter (principal); I10 Essential (primary) hypertension; F03.90 Unspecified dementia, unspecified severity, without behavioral disturbance, psychotic disturbance, mood disturbance, and anxiety; Z88.8 Allergy status to other drugs, medicaments and biological substances
CPT/HCPCS: 93971

== ENCOUNTER → 2023-07-06 | Emergency (ER) | payer OTHER ==
[~2023-07-06] MED LIST: cloNIDine HCL 0.1 MG TAB ONE
[2023-07-07 00:38] LABS: PT Prothrombin Time 12.3 SECONDS (9.5-12.5); Protime INR 1.12
[2023-07-07 00:39] LABS: Absolute Eosinophils 0.1 K/uL (0-0.5); Absolute Lymphocytes (CBC) 1.5 K/uL (0.7-4.9); Absolute Monocytes 0.5 K/uL (0.1-1.3); Basophils % 0.4 % (0-1.3); Eosinophils % 1.9 % (0-4.4); Hematocrit 37.1 % (36.0-45.0); Hemoglobin 12.3 g/dL (12.0-15.0); Lymphocytes % 24.5 % (15.3-44.8); MCH 26.7 pg (27.0-35.0); MCHC 33.3 g/dL (32.0-36.0); MPV 8.1 fL (7.6-11.3); Monocytes % 8.3 % (3.3-12.3); Neutrophils % 64.9 % (41.7-73.7); Nucleated Red Blood Cells % 0.1 % (0-0); Platelets 182 thou/uL (152-406); RBC Red Blood Cell Count 4.63 M/uL (3.86-4.86); Red Cell Distribution Width 14.9 % (12.1-15.2)
[2023-07-07 00:51] LABS: Albumin 3.6 g/dL (3.4-5.0); Anion Gap 9.9 mEq/L (5.0-15.0); Bilirubin Direct 0.1 mg/dL (0-0.2); Bilirubin Indirect, Calculated 0.4 mg/dL (0.2-0.8); Bilirubin Total 0.5 mg/dL (0.2-1.0); Globulin 3.5 g/dL (2.3-3.5); Potassium 3.9 mEq/L (3.5-5.1); Protein, Total 7.1 g/dL (6.4-8.2); Troponin High Sensitivity 46.2 pg/mL (<58.9)
--- NOTE | 2023-07-07 02:13 | ER ---
Nurse's Notes [facility] Name: Alana Guevara Age: 88 yrs Sex: Female : 1935 Arrival Date: 07/06/2023 Time: 23:06 Bed 3 Private MD: Diagnosis: Essential (primary) hypertension;Hypertensive urgency Presentation: 07/05 23:10 Chief complaint: EMS states: not feeling well, checked out for stroke symptoms, rv negative. brought in because of high BP, 226/73. denies chest pain. Coronavirus screen: At this time, the client does not indicate any symptoms associated with coronavirus-19. Ebola Screen: No symptoms or risks identified at this time. Initial Sepsis Screen: Does the patient meet any 2 criteria? No. Patient's initial sepsis screen is negative. Does the patient have a suspected source of infection? No. Patient's initial sepsis screen is negative. Risk Assessment: Do you want to hurt yourself or someone else? Patient reports no desire to harm self or others. Onset of symptoms was July 06, 2023. 23:10 Method Of Arrival: EMS: [facility] rv 23:10 Acuity: JAEL 3 rv Triage Assessment: 23:12 General: Appears comfortable, Behavior is calm, cooperative. Pain: Denies pain. Neuro: rv Level of Consciousness is awake, alert, obeys commands, Oriented to person, place, time, situation. Cardiovascular: Capillary refill < 3 seconds Patient's skin is warm and dry. Respiratory: Airway is patent Respiratory effort is even, unlabored. GI: No signs and/or symptoms were reported involving the gastrointestinal system. : No signs and/or symptoms were reported regarding the genitourinary system. Derm: Skin is intact. Historical: - Allergies: 23:12 meperidine HCl; rv 23:12 Nitrofurantoin Macrocrystal; rv - PMHx: 23:12 Anxiety; CVA; Dementia; per daughter; depressive disorder; GERD; High Cholesterol; rv Hypertension; Hypothyroidism; osteoarthritis; TIA; - PSHx: 23:12 None; rv - Immunization history:: Adult Immunizations up to date. - Social history:: Smoking status: Patient denies any tobacco usage or history of. - Family history:: not pertinent. Screenin:13 [facility] ED Fall Risk Assessment (Adult) History of falling in the last 3 months, rv including since admission No falls in past 3 months (0 pts) Score/Fall Risk Level 0 - 2 = Low Risk Oriented to surroundings, Maintained a safe environment, Educated pt \T\ family on fall prevention, incl call for assistance when getting out of bed, Assessed \T\ reinforced patient's understanding of fall precautions. Abuse screen: Denies threats or abuse. Denies injuries from another. Nutritional screening: No deficits noted. Tuberculosis screening: No symptoms or risk factors identified. Vital Signs: 23:10 BP 161 / 73; Pulse 55; Resp 16; Temp 98; Pulse Ox 100% ; Weight 60.33 kg; Height 5 ft. rv 5 in. ; 07/06 00:49 BP 170 / 66; Pulse 60; Resp 17; Pulse Ox 100% ; rv 01:45 BP 130 / 55; Pulse 56; Resp 16; Pulse Ox 97% on R/A; rv 02:22 BP 133 / 60; Pulse 58; Resp 16; Temp 98; Pulse Ox 99% on R/A; rv 07/05 23:10 Body Mass Index 22.13 (60.33 kg, 165.1 cm) rv [place] Coma Score: 00:49 Eye Response: spontaneous(4). Motor Response: obeys commands(6). Verbal Response: rv oriented(5). Total: 15. 02:03 Eye Response: spontaneous(4). Motor Response: obeys commands(6). Verbal Response: sp4 oriented(5). Total: 15. NIH Stroke Scale Scores: 02:03 NIHSS Score: 0 sp4 ED Course: 07/05 23:10 Patient arrived in ED. rv 23:12 Triage completed. rv 23:12 Arm band placed on right wrist. rv 23:13 Patient has correct armband on for positive identification. Client placed on continuous rv cardiac and pulse oximetry monitoring. NIBP monitoring applied. potline monitor on. 23:13 Maintain EMS IV. Dressing intact. Good blood return noted. Site clean \T\ dry. Gauge \T\ rv site: g20 right forearm. 23:13 No provider procedures requiring assistance completed. rv 23:34 Jerrod Nur MD is Attending Physician. sp4 07/06 00:40 XRAY Chest (1 view) In Process Unspecified. EDMS 02:23 IV discontinued, intact, bleeding controlled, No redness/swelling at site. Pressure rv dressing applied. Administered Medications: 07/05 23:52 Drug: cloNIDine PO 0.2 mg PO once Route: PO; rv 07/06 02:22 Follow up: Response: No adverse reaction; Marked relief of symptoms; Blood pressure is rv lowered Medication: 07/05 23:13 VIS not applicable for this client. rv Outcome: 07/06 02:13 Discharge ordered by . sp4 02:22 Discharged to home via wheelchair, with family, rv 02:22 Condition: good 02:22 Discharge instructions given to family, Instructed on discharge instructions, follow up and referral plans. medication usage, Demonstrated understanding of instructions, follow-up care, medications, Prescriptions given X 1, 02:23 Patient left the ED. rv NIH Stroke Scale - NIH Stroke Score Date: 07/07/2023 Time: 02:03 Total Score = 0 10. Dysarthria (speech clarity - read or repeat words) - 0(Normal) 11. Extinction and Inattention (visual/tactile/auditory/spatial/personal) - 0(No abnormality) 1a. Level of Consciousness (LOC) - 0(Alert) 1b. Level of Consciousness (LOC) (Month \T\ Age) - 0(Both) 1c. LOC Commands (Open \T\ Closes Eyes/Lead Military Analyst) - 0(Both) 2. Best Gaze (Lateral Gaze Paresis) - 0(Normal) 3. Visual Field Loss - 0(No visual loss) 4. Facial Palsy - 0(Normal) 5a. Left Arm: Motor (10-second hold) - 0(No drift) 5b. Right Arm: Motor (10-second hold) - 0(No drift) 6a. Left Leg: Motor (5-second hold - always test supine) - 0(No drift) 6b. Right Leg: Motor (5-second hold - always test supine) - 0(No drift) 7. Limb Ataxia (finger/nose \T\ heel/mg - test with eyes open) - 0(Absent) 8. Sensory Loss (pinprick arms/legs/face) - 0(Normal) 9. Best Language: Aphasia (description/naming/reading) - 0(No aphasia) Initials: sp4 Signatures: Dispatcher [employer] EDMS Wilfredo Machado RN RN rv Potepalov, Jerrod, MD MD sp4
--- NOTE | 2023-07-07 02:14 | EDPHYS ---
Physician Documentation [facility] Name: Alana Guevara Age: 88 yrs Sex: Female : 1935 Arrival Date: 07/06/2023 Time: 23:06 Bed 3 Private MD: ED Physician Jerrod Nur HPI: 07/05 23:35 This 88 yrs old Other Female presents to ER via EMS with complaints of Gen complaint . sp4 07/06 02:03 Patient is a very pleasant 88-year-old female presents for elevated blood pressure. . sp4 02:03 Patient was brought in by EMS from assisted living facility for not feeling well and sp4 elevated blood pressure.. Patient has history of anxiety, CVA, dementia, depression, GERD, high cholesterol, hypertension,. On arrival patient denied any complaints. Patient reports she would like to be released from the ER. Historical: - Allergies: 07/05 23:12 meperidine HCl; rv 23:12 Nitrofurantoin Macrocrystal; rv - PMHx: 23:12 Anxiety; CVA; Dementia; per daughter; depressive disorder; GERD; High Cholesterol; rv Hypertension; Hypothyroidism; osteoarthritis; TIA; - PSHx: 23:12 None; rv - Immunization history:: Adult Immunizations up to date. - Social history:: Smoking status: Patient denies any tobacco usage or history of. - Family history:: not pertinent. ROS: 07/06 02:03 Constitutional: Negative for fever, chills, and weight loss, sp4 All other systems are negative, Exam: 02:03 Constitutional: This is a well developed, well nourished patient who is awake, alert, sp4 and in no acute distress. Patient is frail elderly female Head/Face: Normocephalic, atraumatic. Eyes: Pupils equal round and reactive to light, extra-ocular motions intact. Lids and lashes normal. Conjunctiva and sclera are not injected. Cornea within normal limits. Periorbital areas with no swelling, redness, or edema. ENT: Nares patent. No nasal discharge, no septal abnormalities noted. Tympanic membranes are normal and external auditory canals are clear. Oropharynx with no redness, swelling, or masses, exudates, or evidence of obstruction, uvula midline. Mucous membranes moist. Neck: Trachea midline, no thyromegaly or masses palpated, and no cervical lymphadenopathy. Supple, full range of motion without nuchal rigidity, or vertebral point tenderness. Chest/axilla: Normal chest wall appearance and motion. Nontender with no deformity. No lesions are appreciated. Cardiovascular: Regular rate and rhythm with a normal S1 and S2. No gallops, murmurs, or rubs. Normal PMI, no JVD. No pulse deficits. Respiratory: Lungs have equal breath sounds bilaterally, clear to auscultation and percussion. No rales, rhonchi or wheezes noted. No increased work of breathing, no retractions or nasal flaring. Abdomen/GI: Soft, with normal bowel sounds. No distension or tympany. No guarding or rebound. No evidence of tenderness throughout. Back: No spinal tenderness. No costovertebral tenderness. Skin: Warm, dry with normal turgor. Normal color with no rashes, no lesions, and no evidence of cellulitis. MS/ Extremity: Pulses equal, no cyanosis. Neurovascular intact. Full, normal range of motion. Neuro: Awake and alert, GCS 15, oriented to person, place, time, and situation. Cranial nerves II-XII grossly intact. Motor strength 5/5 in all extremities. Sensory grossly intact. Psych: Awake, alert, with orientation to person, place and time. Behavior, mood, and affect are within normal limits 02:03 ECG was reviewed by the Attending Physician. EKG at 2333 sinus bradycardia with left sp4 axis deviation at the rate of 55, LVH present Vital Signs: 07/05 23:10 BP 161 / 73; Pulse 55; Resp 16; Temp 98; Pulse Ox 100% ; Weight 60.33 kg; Height 5 ft. rv 5 in. ; 07/06 00:49 BP 170 / 66; Pulse 60; Resp 17; Pulse Ox 100% ; rv 01:45 BP 130 / 55; Pulse 56; Resp 16; Pulse Ox 97% on R/A; rv 02:22 BP 133 / 60; Pulse 58; Resp 16; Temp 98; Pulse Ox 99% on R/A; rv 07/05 23:10 Body Mass Index 22.13 (60.33 kg, 165.1 cm) rv NIH Stroke Scale Scores: 02:03 NIHSS Score: 0 sp4 [place] Coma Score: 00:49 Eye Response: spontaneous(4). Motor Response: obeys commands(6). Verbal Response: rv oriented(5). Total: 15. 02:03 Eye Response: spontaneous(4). Motor Response: obeys commands(6). Verbal Response: sp4 oriented(5). Total: 15. MDM: 07/05 23:38 Patient medically screened. sp4 07/06 02:03 Differential Diagnosis altered mental status, sepsis, flu, CVA . Data reviewed: vital sp4 signs, nurses notes, EMS record, old medical records, lab test result(s), EKG, radiologic studies, plain films. ED course: EXAM: XR Chest, 1 View CLINICAL HISTORY: The patient is 88 years old and is Female; CHEST PAIN TECHNIQUE: Frontal view of the chest. COMPARISON: No relevant prior studies available. FINDINGS: Lungs: Prominent interstitial markings. No consolidation. Pleural space: Unremarkable. No pneumothorax. Heart: Unremarkable. Mediastinum: Unremarkable. Normal mediastinal contour. Bones/joints: Old left rib fractures. Tubes, lines and devices: Device overlying the cardiac silhouette. IMPRESSION: Prominent interstitial markings. No consolidation.. 02:03 Consideration of Admission/Observation Escalation of care including sp4 admission/observation considered. ED course: Patient at this time has no sign of CVA, blood pressure controlled with clonidine. Will prescribe as needed clonidine every 8 hours for systolic blood pressure greater than 180 . Patient should see a primary care doctor for blood pressure medication adjustment. Otherwise stable for discharge back to assisted living. 02:11 ED course: Patient's overall medications include loperamide as needed, acetaminophen as sp4 needed aspirin 81 mg daily, atorvastatin daily, Azo cranberry tablet, carvedilol 10 mg p.o. daily, levothyroxine 100 mcg daily, minoxidil 10 mg daily, sertraline 100 mg daily, telmisartan 80 mg daily, trazodone 50 mg before bedtime. . 07/05 23:37 Order name: Basic Metabolic Panel; Complete Time: 02:02 sp4 07/05 23:37 Order name: CBC with Diff; Complete Time: 02:02 sp4 07/05 23:37 Order name: LFT's; Complete Time: 02:02 sp4 07/05 23:37 Order name: Magnesium; Complete Time: 02:02 sp4 07/05 23:37 Order name: NT PRO-BNP; Complete Time: 02:02 sp4 07/05 23:37 Order name: PT-INR; Complete Time: 02:02 sp4 07/05 23:37 Order name: Troponin HS; Complete Time: 02:02 sp4 07/05 23:37 Order name: XRAY Chest (1 view) sp4 07/05 23:37 Order name: EKG; Complete Time: 23:38 sp4 07/05 23:37 Order name: Cardiac monitoring; Complete Time: 23:49 sp4 07/05 23:37 Order name: EKG - Nurse/Tech; Complete Time: 23:49 sp4 07/05 23:37 Order name: IV Saline Lock; Complete Time: 23:49 sp4 07/05 23:37 Order name: Labs collected and sent; Complete Time: 23:49 sp4 07/05 23:37 Order name: O2 Per Protocol; Complete Time: 23:49 sp4 07/05 23:37 Order name: O2 Sat Monitoring; Complete Time: 23:49 sp4 EC:03 Rate is 55 beats/min. Rhythm is regular, Sinus bradycardia. Left axis deviation noted. sp4 VT interval is normal. QRS interval is normal. QT interval is normal. No Q waves. T waves are Normal. No ST changes noted. Clinical impression: No evidence of ischemia. Interpreted by me. Reviewed by me. Administered Medications: 07/05 23:52 Drug: cloNIDine PO 0.2 mg PO once Route: PO; rv 07/06 02:22 Follow up: Response: No adverse reaction; Marked relief of symptoms; Blood pressure is rv lowered Disposition Summary: 07/07/23 02:13 Discharge Ordered Notes: Location: Home sp4 Problem: new sp4 Symptoms: have improved sp4 Condition: Stable sp4 Diagnosis - Essential (primary) hypertension sp4 - Hypertensive urgency sp4 Followup: sp4 - With: Private Physician - When: 7 - 10 days - Reason: Recheck today's complaints Discharge Instructions: - Discharge Summary Sheet sp4 - Hypertension, Adult, [id number] sp4 Forms: - Patient Portal Instructions sp4 Prescriptions: - clonidine HCl 0.1 mg Oral tablet - take 1 tablet ORAL route every 8 hours PRN SBP > 170; 90 tablet; Refills: 0, sp4 Product Selection Permitted NIH Stroke Scale - NIH Stroke Score Date: 07/07/2023 Time: 02:03 Total Score = 0 10. Dysarthria (speech clarity - read or repeat words) - 0(Normal) 11. Extinction and Inattention (visual/tactile/auditory/spatial/personal) - 0(No abnormality) 1a. Level of Consciousness (LOC) - 0(Alert) 1b. Level of Consciousness (LOC) (Month \T\ Age) - 0(Both) 1c. LOC Commands (Open \T\ Closes Eyes/Natural Developer) - 0(Both) 2. Best Gaze (Lateral Gaze Paresis) - 0(Normal) 3. Visual Field Loss - 0(No visual loss) 4. Facial Palsy - 0(Normal) 5a. Left Arm: Motor (10-second hold) - 0(No drift) 5b. Right Arm: Motor (10-second hold) - 0(No drift) 6a. Left Leg: Motor (5-second hold - always test supine) - 0(No drift) 6b. Right Leg: Motor (5-second hold - always test supine) - 0(No drift) 7. Limb Ataxia (finger/nose \T\ heel/mg - test with eyes open) - 0(Absent) 8. Sensory Loss (pinprick arms/legs/face) - 0(Normal) 9. Best Language: Aphasia (description/naming/reading) - 0(No aphasia) Initials: sp4 Signatures: Dispatcher [employer] Wilfredo Qureshi, RN Jerrod Kovacs MD MD sp4
[2023-07-07 02:54] VITALS: BP 133/60; TEMP 98; O2SAT 99
--- NOTE | 2023-07-07 13:36 | RAD REPORT ---
EXAM DESCRIPTION: RAD - Chest Single View - 07/07/2023 12:38 am CLINICAL HISTORY: The patient is 88 years old and is Female; CHEST PAIN TECHNIQUE: Frontal view of the chest. COMPARISON: No relevant prior studies available. FINDINGS: Lungs: Prominent interstitial markings. No consolidation. Pleural space: Unremarkable. No pneumothorax. Heart: Unremarkable. Mediastinum: Unremarkable. Normal mediastinal contour. Bones/joints: Old left rib fractures. Tubes, lines and devices: Device overlying the cardiac silhouette. IMPRESSION: Prominent interstitial markings. No consolidation. Electronically signed by: Quintin Rosales MD 07/07/2023 12:53 AM CDT Due to temporary technical issues with the PACS/Fluency reporting system, reports are being signed by the in house radiologist without review as a courtesy to ensure prompt reporting. The interpreting r adiologist is fully responsible for the content of the report.
== END ==
LOC: ER 23:06
DX: I16.0 Hypertensive urgency (principal); F41.9 Anxiety disorder, unspecified; F03.90 Unspecified dementia, unspecified severity, without behavioral disturbance, psychotic disturbance, mood disturbance, and anxiety; Z86.73 Personal history of transient ischemic attack (TIA), and cerebral infarction without residual deficits
CPT/HCPCS: 36415; 71045; 80048; 80076; 83735; 83880; 84484; 85025; 85610; 93005

== ENCOUNTER 2024-04-28 19:51 | Emergency (ER) | payer OTHER ==
--- NOTE | 2024-04-28 20:41 | RAD REPORT ---
EXAM: CT brain without contrast HISTORY: TRAUMA COMPARISON: None TECHNIQUE: Multiple contiguous axial images were obtained and a CT of the brain without contrast. Sag ittal and coronal reformats were performed. FINDINGS: No evidence of hydrocephalus, intracranial hemorrhage, or extra-axial fluid collection. Moderate brain atrophy with moderate periventricular and deep white matter chronic microvascular isc hemic changes present. The calvarium is intact. The visualized paranasal sinuses. Patchy opacification of the right mastoid air cells. Left frontal scalp hematoma. IMPRESSION: No evidence of acute intracranial abnormality. Left frontal scalp hematoma. EXAM: CT of the cervical spine without contrast HISTORY: TRAUMA COMPARISON: None TECHNIQUE: Multiple contiguous axial images were obtained in a CT of the cervical spine without contr ast. Sagittal and coronal reformats were performed. FINDINGS: The vertebral bodies demonstrate normal height and alignment. No evidence of acute fracture or subluxation.. Multilevel moderate degenerative changes with disc height loss most pronounced at C5-6, and neural foraminal narrowing most pronounced on the left at C4-5 and on the right at C5-6. Si zable degenerative pannus at the atlantodental articulation. No prevertebral soft tissue swelling is seen. The posterior facets are well aligned. Normal alignment of the skull base with the cervical spine is seen. The lung apices are unremarkable. IMPRESSION: No evidence of acute osseous abnormality of the cervical spine. Degenerative changes as above.
[2024-04-28] MEDS ORDERED: cloNIDine HCL 0.1 MG TAB ONE (21:12)
--- NOTE | 2024-04-28 21:23 | EDPHYS ---
Physician Documentation [facility] Name: Alana Guevara Age: 88 yrs Sex: Female : 1935 Arrival Date: 04/28/2024 Time: 19:51 Bed 19 Private MD: ED Physician Kaushik Jett HPI: 04/28 21:29 This 88 yrs old Female presents to ER via EMS with complaints of Fall Injury. kb 21:29 Pt is an 88 year old female who presents for head injury after falling from standing kb position. States she has a history of strokes so her legs go out occasionally causing her to fall. States that is what happened today. Denies any other pain or injury. . Historical: - Allergies: 21:16 meperidine HCl; br2 21:16 Nitrofurantoin Macrocrystal; br2 - PMHx: 21:16 Anxiety; CVA; depressive disorder; Dementia; per daughter; High Cholesterol; GERD; br2 Hypertension; osteoarthritis; Hypothyroidism; TIA; - Immunization history:: Adult Immunizations up to date. - Infectious Disease History:: Denies. - Social history:: Smoking status: Patient/guardian denies using tobacco. ROS: 21:28 Constitutional: As per HPI kb Exam: 21:28 Constitutional: This is a well developed, well nourished patient who is awake, alert, kb and in no acute distress. Eyes: Pupils equal round and reactive to light, extra-ocular motions intact. Lids and lashes normal. Conjunctiva and sclera are non-icteric and not injected. Cornea within normal limits. Periorbital areas with no swelling, redness, or edema. ENT: Moist Mucous membranes Cardiovascular: Regular rate Respiratory: Respirations even and unlabored. No increased work of breathing. Talking in full sentences Skin: Warm, dry with normal turgor. Normal color. MS/ Extremity: Pulses equal, no cyanosis. Neurovascular intact. Full, normal range of motion. Neuro: Awake and alert, GCS 15, oriented to person, place, time, and situation. 21:28 Head/face: Noted is no obvious of injury or deformity except hematoma, that is moderate, that is severe, of the left side of forehead, Vital Signs: 20:00 BP 202 / 78; Pulse 66; Resp 18; Temp 97.3(TE); Pulse Ox 99% on R/A; Weight 61.23 kg; br2 Height 5 ft. 8 in. ; Pain 10/10; 20:48 BP 206 / 71; Pulse 66; Resp 18; Temp 97.2; Pulse Ox 100% on R/A; br2 21:20 BP 186 / 66; Pulse 69; Resp 18; Pulse Ox 97% ; vc1 21:20 BP 186 / 66; Pulse 71; Resp 18 S; Pulse Ox 99% on R/A; br2 20:00 Body Mass Index 20.53 (61.23 kg, 172.72 cm) br2 20:00 Pain Scale: Adult br2 MDM: 19:54 Medical Screening Exam initiated kb 21:29 Differential diagnosis: closed head injury, contusion, fracture, hematoma. Data kb reviewed: vital signs, nurses notes. Historians other than the Patient: EMS: [facility]. Counseling: I had a detailed discussion with the patient and/or guardian regarding the historical points, exam findings, and any diagnostic results supporting the discharge/admit diagnosis, radiology results, the need for outpatient follow up, a family practitioner, to return to the emergency department if symptoms worsen or persist or if there are any questions or concerns that arise at home. 04/28 19:54 Order name: CT Head C Spine; Complete Time: 20:43 kb 04/28 20:43 Order name: Vital Signs; Complete Time: 21:22 kb 04/28 21:22 Order name: Ice pack kb Administered Medications: 21:00 CANCELLED (Physician Discretion): clonidine0.1 mg PO once kb 21:00 Drug: cloNIDine PO 0.2 mg PO once Route: PO; br2 21:38 Follow up: Response: No adverse reaction br2 21:20 CANCELLED (Physician Discretion): clonidine0.2 mg PO once kb Disposition Summary: 04/28/24 21:23 Discharge Ordered Notes: Location: Home kb Condition: Stable kb Diagnosis - Unspecified injury of head, initial encounter kb - Essential (primary) hypertension kb Followup: kb - With: Emergency Department - When: As needed - Reason: Worsening of condition Followup: kb - With: Private Physician - When: 2 - 3 days - Reason: Recheck today's complaints, Continuance of care, Re-evaluation by your physician Discharge Instructions: - Discharge Summary Sheet kb - Head Injury, Adult, [id number] kb Forms: - Medication Reconciliation Form kb - Antibiotic Education kb - Prescription Opioid Use kb - Patient Portal Instructions kb - Leadership Thank You Letter kb Addendum: 05/01/2024 09:54 I was immediately available on-site in the Emergency Department for consultation in the m s3 care of the patient. Signatures: Dispatcher [employer] EDMS Elisa Priest, FLIGHT INSPECTOR-C FLIGHT INSPECTOR-Kaushik May, DO ms3 Bessy Timmons RN RN br2 Corrections: (The following items were deleted from the chart) 04/28 21:00 20:59 cloNIDine PO 0.1 mg PO once ordered. kb kb 21:20 21:00 cloNIDine PO 0.2 mg PO once ordered. kb kb
--- NOTE | 2024-04-28 21:23 | ER ---
Nurse's Notes [facility] Name: Alana Guevara Age: 88 yrs Sex: Female : 1935 Arrival Date: 04/28/2024 Time: 19:51 Bed 19 Private MD: Diagnosis: Unspecified injury of head, initial encounter;Essential (primary) hypertension Presentation: 04/28 20:00 Chief complaint: Patient states: S/P FALL UNWITNESSED. PT ARRIVES TO ER WITH HEMATOMA br2 TO LEFT FOREHEAD. DENIES LOC. Coronavirus screen: Client denies travel out of the [place] in the last 14 days. Ebola Screen: Patient denies exposure to infectious person. Initial Sepsis Screen: Does the patient meet any 2 criteria? No. Patient's initial sepsis screen is negative. Does the patient have a suspected source of infection? No. Patient's initial sepsis screen is negative. Risk Assessment: Do you want to hurt yourself or someone else? Patient reports no desire to harm self or others. Onset of symptoms was April 28, 2024 at 19:00. 20:00 Method Of Arrival: EMS: [facility] br2 20:00 Acuity: JAEL 3 br2 Triage Assessment: 20:00 General: Appears in no apparent distress. comfortable, Behavior is calm, cooperative. br2 Pain: Complains of pain in left side of forehead Pain does not radiate. Pain currently is 10 out of 10 on a pain scale. EENT: No signs and/or symptoms were reported regarding the EENT system. Neuro: Dee Agitation-Sedation Scale (RASS): 0 - Alert and Calm Level of Consciousness is awake, alert, obeys commands, Oriented to person, place, time, situation. Cardiovascular: Capillary refill < 3 seconds. Respiratory: Airway is patent Respiratory effort is even, unlabored, Respiratory pattern is regular, symmetrical. GI: No signs and/or symptoms were reported involving the gastrointestinal system. : No signs and/or symptoms were reported regarding the genitourinary system. Derm: No signs and/or symptoms reported regarding the dermatologic system. Historical: - Allergies: 21:16 meperidine HCl; br2 21:16 Nitrofurantoin Macrocrystal; br2 - PMHx: 21:16 Anxiety; CVA; depressive disorder; Dementia; per daughter; High Cholesterol; GERD; br2 Hypertension; osteoarthritis; Hypothyroidism; TIA; - Immunization history:: Adult Immunizations up to date. - Infectious Disease History:: Denies. - Social history:: Smoking status: Patient/guardian denies using tobacco. Screenin:00 [facility] ED Fall Risk Assessment (Adult) History of falling in the last 3 months, br2 including since admission No falls in past 3 months (0 pts) Confusion or Disorientation No (0 pts) Intoxicated or Sedated No (0 pts) Impaired Gait No (0 pts) Mobility Assist Device Used No (0 pt) Altered Elimination No (0 pt) Score/Fall Risk Level 0 - 2 = Low Risk Oriented to surroundings. Abuse screen: Denies threats or abuse. Denies injuries from another. Nutritional screening: No deficits noted. Tuberculosis screening: No symptoms or risk factors identified. Assessment: 20:18 Reassessment: SEE TRIAGE ASSESSMENT. br2 Vital Signs: 20:00 BP 202 / 78; Pulse 66; Resp 18; Temp 97.3(TE); Pulse Ox 99% on R/A; Weight 61.23 kg; br2 Height 5 ft. 8 in. ; Pain 10/10; 20:48 BP 206 / 71; Pulse 66; Resp 18; Temp 97.2; Pulse Ox 100% on R/A; br2 21:20 BP 186 / 66; Pulse 69; Resp 18; Pulse Ox 97% ; vc1 21:20 BP 186 / 66; Pulse 71; Resp 18 S; Pulse Ox 99% on R/A; br2 20:00 Body Mass Index 20.53 (61.23 kg, 172.72 cm) br2 20:00 Pain Scale: Adult br2 ED Course: 19:54 Patient arrived in ED. kb 19:54 Elisa Priest FNP-C is PHCP. kb 19:54 Kaushik Jett DO is Attending Physician. kb 20:00 Patient has correct armband on for positive identification. Bed in low position. Call br2 light in reach. Side rails up X 1. Provided Education on: PLAN OF CARE. 20:00 Maintain EMS IV. IV Flushed right antecubital. br2 20:13 Bessy Timmons, SHAQUILLE is Primary Nurse. br2 20:16 Triage completed. br2 20:21 CT Head C Spine In Process Unspecified. EDMS 21:38 No provider procedures requiring assistance completed. IV discontinued, intact, br2 bleeding controlled, No redness/swelling at site. Pressure dressing applied. 22:03 Report given to SPOKE TO STAFF AT [facility] ON DISCHARGE INSTRUCTIONS AND THAT DAUGHTER br2 WOULD BE TAKING HER HOME. Administered Medications: 21:00 CANCELLED (Physician Discretion): clonidine0.1 mg PO once kb 21:00 Drug: cloNIDine PO 0.2 mg PO once Route: PO; br2 21:38 Follow up: Response: No adverse reaction br2 21:20 CANCELLED (Physician Discretion): clonidine0.2 mg PO once kb Medication: 21:21 VIS not applicable for this client. vc1 Outcome: 21:23 Discharge ordered by MD. kb 21:38 Discharged to home via wheelchair, br2 21:38 Condition: stable 21:38 Discharge instructions given to patient, family, Instructed on discharge instructions, follow up and referral plans. Demonstrated understanding of instructions, follow-up care, 21:43 Patient left the ED. br2 Signatures: Dispatcher [employer] EDAR Elisa Priest, RIA CHERY-Lorenza Shipman, RN RN vc1 Bessy Timmons RN RN br2
[2024-04-28 22:08] VITALS: TEMP 97.2
[2024-04-28 22:10] VITALS: BP 186/66; O2SAT 99
== END 2024-04-28 21:43 | disposition home or self-care (01) ==
LOC: ER 19:51
DX: S00.83XA Contusion of other part of head, initial encounter (principal); I10 Essential (primary) hypertension; W18.30XA Fall on same level, unspecified, initial encounter
CPT/HCPCS: 70450; 72125; 99284

== ENCOUNTER 2024-06-26 21:50 | Emergency (ER) | payer OTHER ==
[2024-06-26 22:52] LABS: Absolute Eosinophils 0.1 K/uL (0-0.5); Absolute Lymphocytes (CBC) 1.1 K/uL (0.7-4.9); Absolute Monocytes 0.4 K/uL (0.1-1.3); Absolute Neutrophil 7.5 K/uL (1.8-8.0); Basophils % 0.4 % (0-1.3); Eosinophils % 0.7 % (0-4.4); Hematocrit 39.2 % (36.0-45.0); Hemoglobin 13.1 g/dL (12.0-15.0); Lymphocytes % 12.1 % (15.3-44.8); MCH 26.7 pg (27.0-35.0); MCHC 33.4 g/dL (32.0-36.0); Monocytes % 4.1 % (3.3-12.3); Neutrophils % 82.7 % (41.7-73.7); Nucleated Red Blood Cells % 0.2 % (0-0); Platelets 151 thou/uL (152-406); RBC Red Blood Cell Count 4.89 M/uL (3.86-4.86); Red Cell Distribution Width 14.8 % (12.1-15.2)
[2024-06-26 23:10] LABS: ALT/SGPT 17 U/L (13-56); AST/SGOT 15 U/L (15-37); Albumin 3.6 g/dL (3.4-5.0); Albumin/Globulin Ratio 1.1 (1.1-1.8); Alkaline Phosphatase 69 U/L (45-117); Anion Gap 8.4 mEq/L (5.0-15.0); BUN Blood Urea Nitrogen 19 mg/dL (7-18); Bicarbonate 29 mEq/L (21-32); Bilirubin Total 0.5 mg/dL (0.2-1.0); Globulin 3.3 g/dL (2.3-3.5); Glomerular Filtration Rate 76 ml/min (=/>90); Glucose Level 112 mg/dL (74-106); Lipase 49 U/L (13-75); Potassium 3.4 mEq/L (3.5-5.1); Protein, Total 6.9 g/dL (6.4-8.2); Sodium Level 142 mEq/L (136-145)
[2024-06-26 23:16] LABS: Bilirubin Direct < 0.2 mg/dL (0-0.2); Bilirubin Indirect, Calculated 0.3 mg/dL (0.2-0.8)
--- NOTE | 2024-06-26 23:51 | EDPHYS ---
Physician Documentation [facility] Name: Alana Guevara Age: 89 yrs Sex: Female : 1935 Arrival Date: 06/26/2024 Time: 21:50 Bed 4 Private MD: ED Physician Mushtaq Holcomb HPI: 06/26 22:41 This 89 yrs old Female presents to ER via Unassigned with complaints of fall. rt 22:41 History limited due to patient with dementia. Patient presents from care home after rt being found on the ground, the patient cannot recall the circumstances surrounding the fall. She denies any physical complaints at this time, symptoms are mild in severity, no other aggravating or alleviating factors.. Historical: - Allergies: 22:45 meperidine HCl; vc1 22:45 Nitrofurantoin Macrocrystal; vc1 - PMHx: 22:45 Anxiety; CVA; Dementia; per daughter; depressive disorder; GERD; High Cholesterol; vc1 Hypertension; Hypothyroidism; osteoarthritis; TIA; - PSHx: 22:45 None; vc1 - Immunization history:: Flu vaccine is not up to date. - Infectious Disease History:: Denies. - Family history:: not pertinent. - Social history:: Smoking status: unknown. ROS: 22:41 Unable to obtain ROS due to baseline dementia, rt Exam: 22:41 Constitutional: This is a well developed, well nourished patient who is awake, alert, rt and in no acute distress. Head/Face: Normocephalic, atraumatic. Neck: Trachea midline, no thyromegaly or masses palpated, and no cervical lymphadenopathy. Supple, full range of motion without nuchal rigidity, or vertebral point tenderness. No Meningismus. Chest/axilla: Normal chest wall appearance and motion. Nontender with no deformity. No lesions are appreciated. Cardiovascular: Regular rate and rhythm with a normal S1 and S2. No gallops, murmurs, or rubs. Normal PMI, no JVD. No pulse deficits. Respiratory: Lungs have equal breath sounds bilaterally, clear to auscultation and percussion. No rales, rhonchi or wheezes noted. No increased work of breathing, no retractions or nasal flaring. Abdomen/GI: Soft, non-tender, with normal bowel sounds. No distension or tympany. No guarding or rebound. No evidence of tenderness throughout. Skin: Warm, dry with normal turgor. Normal color with no rashes, no lesions, and no evidence of cellulitis. MS/ Extremity: Pulses equal, no cyanosis. Neurovascular intact. Full, normal range of motion. Neuro: Awake and alert, GCS 15, oriented to person, place, time, and situation. Cranial nerves II-XII grossly intact. Motor strength 5/5 in all extremities. Sensory grossly intact. Cerebellar exam normal. Normal gait. 22:45 ECG was reviewed by the Attending Physician. rt Vital Signs: 22:45 BP 187 / 66; Pulse 63; Resp 21; Temp 97.7; Pulse Ox 100% ; Weight 62.6 kg; vc1 06/27 00:00 BP 186 / 72; Pulse 67; Resp 18; Pulse Ox 96% ; vc1 MDM: 06/26 21:55 Medical Screening Exam initiated rt 06/27 00:34 Differential Diagnosis Intracranial hemorrhage, polytrauma, dysrhythmia, syncope. Data rt reviewed: vital signs, nurses notes, lab test result(s), EKG, radiologic studies. Consideration of Admission/Observation Escalation of care including admission/observation considered. Discussed findings of elevated troponin with the patient's daughter, she states that she does not wish to the for the patient have any further evaluation to include a repeat troponin, was informed of risk of missed cardiac pathology, has decision-making capacity.. Independent interpretation of the following test(s) in the Emergency Department CT Scan: My interpretation is No intracranial hemorrhage seen on my interpretation of CT scan images. Care significantly affected by the following chronic conditions: Dementia. Counseling: I had a detailed discussion with the patient and/or guardian regarding the historical points, exam findings, and any diagnostic results supporting the discharge/admit diagnosis, lab results, radiology results, the need for outpatient follow up, to return to the emergency department if symptoms worsen or persist or if there are any questions or concerns that arise at home. 06/26 21:56 Order name: Basic Metabolic Panel; Complete Time: 23:20 rt 06/26 21:56 Order name: CBC with Diff; Complete Time: 23:20 rt 06/26 21:56 Order name: LFT's; Complete Time: 23:20 rt 06/26 21:56 Order name: Troponin HS; Complete Time: 23:20 rt 06/26 21:56 Order name: Lipase; Complete Time: 23:20 rt 06/26 21:56 Order name: CT Head C Spine rt 06/26 21:56 Order name: CT Chest Abdomen Pelvis W/O Contrast rt 06/26 21:56 Order name: EKG; Complete Time: 21:57 rt 06/26 21:56 Order name: Cardiac monitoring; Complete Time: 22:48 rt 06/26 21:56 Order name: EKG - Nurse/Tech; Complete Time: 22:48 rt 06/26 21:56 Order name: IV Saline Lock; Complete Time: 22:48 rt 06/26 21:56 Order name: Labs collected and sent; Complete Time: 22:48 rt 06/26 21:56 Order name: O2 Per Protocol; Complete Time: 22:48 rt 06/26 21:56 Order name: O2 Sat Monitoring; Complete Time: 22:48 rt EC/10 22:45 Rate is 62 beats/min. Rhythm is regular, Normal Sinus Rhythm with No ectopy, lafb. QRS rt [place] is Normal. CO interval is normal. QRS interval is normal. QT interval is normal. No Q waves. Clinical impression: NSR w/ Non-specific ST/T Changes. Administered Medications: No medications were administered Disposition Summary: 06/26/24 23:50 Discharge Ordered Notes: Location: Home rt Problem: new rt Symptoms: are unchanged rt Condition: Stable rt Diagnosis - Mechanical fall rt Followup: rt - With: Private Physician - When: 2 - 3 days - Reason: Discharge Instructions: - Discharge Summary Sheet rt - Fall Prevention in the Home, Adult rt Forms: - Medication Reconciliation Form rt - Antibiotic Education rt - Prescription Opioid Use rt - Patient Portal Instructions rt - Leadership Thank You Letter rt Signatures: Dispatcher [facility] EDMS Lorenza Santos RN RN vc1 Mushtaq Holcomb MD MD rt Corrections: (The following items were deleted from the chart) 21: 21:57 BASIC METABOLIC PANEL+C.LAB.BRZ ordered. EDMS EDMS 21:57 21:57 CBC+H.LAB.BRZ ordered. EDMS EDMS 21:57 21:57 HEPATIC FUNCTION+C.LAB.BRZ ordered. EDMS EDMS 21:57 21:57 Troponin High Sensitivity+C.LAB.BRZ ordered. EDMS EDMS 21:57 21:57 LIPASE+C.JOSE DAVID.ZEKEZ ordered. EDMS EDMS
--- NOTE | 2024-06-26 23:51 | ER ---
Nurse's Notes [facility] Name: Alana Guevara Age: 89 yrs Sex: Female : 1935 Arrival Date: 06/26/2024 Time: 21:50 Bed 4 Private MD: Diagnosis: Mechanical fall Presentation: 06/26 22:45 Chief complaint: No report given by ems, called sodalis and got report. Pt was getting vc1 out of the shower and trying sit in chair, fell and hit her head and then vomited unknown LOC. 22:45 Coronavirus screen: Client denies travel out of the [place] in the last 14 days. Ebola vc1 Screen: Patient negative for fever greater than or equal to 101.5 degrees Fahrenheit, and additional compatible Ebola Virus Disease symptoms Patient denies exposure to infectious person. Patient denies travel to an Ebola-affected area in the 21 days before illness onset. No symptoms or risks identified at this time. Initial Sepsis Screen: Does the patient meet any 2 criteria? No. Patient's initial sepsis screen is negative. Does the patient have a suspected source of infection? No. Patient's initial sepsis screen is negative. Risk Assessment: Do you want to hurt yourself or someone else? Patient reports no desire to harm self or others. Onset of symptoms was June 26, 2024. 22:45 Method Of Arrival: EMS: [facility] vc1 22:45 Acuity: JAEL 2 vc1 22:45 Care prior to arrival: IV initiated. 20 GA, in the left forearm, flushed. vc1 22:45 Care prior to arrival: Cervical collar in place. vc1 Triage Assessment: 22:45 General: Appears in no apparent distress. uncomfortable, Behavior is calm, cooperative, vc1 appropriate for age. Pain: Complains of pain in face. EENT: No deficits noted. No signs and/or symptoms were reported regarding the EENT system. Neuro: Level of Consciousness is awake, alert, obeys commands, Oriented to person, place. Cardiovascular: Capillary refill < 3 seconds Patient's skin is warm and dry. Respiratory: Airway is patent Respiratory effort is even, unlabored, Respiratory pattern is regular, symmetrical, Breath sounds are clear bilaterally. GI: No deficits noted. No signs and/or symptoms were reported involving the gastrointestinal system. : No deficits noted. No signs and/or symptoms were reported regarding the genitourinary system. Derm: Skin is intact, is fragile, is thin, Skin is dry. Musculoskeletal: Circulation, motion, and sensation intact. Range of motion: intact in all extremities. Historical: - Allergies: 22:45 meperidine HCl; vc1 22:45 Nitrofurantoin Macrocrystal; vc1 - PMHx: 22:45 Anxiety; CVA; Dementia; per daughter; depressive disorder; GERD; High Cholesterol; vc1 Hypertension; Hypothyroidism; osteoarthritis; TIA; - PSHx: 22:45 None; vc1 - Immunization history:: Flu vaccine is not up to date. - Infectious Disease History:: Denies. - Family history:: not pertinent. - Social history:: Smoking status: unknown. Screenin:45 [facility] ED Fall Risk Assessment (Adult) History of falling in the last 3 months, vc1 including since admission Yes- fall prone (multiple falls) (3 pts) Confusion or Disorientation Yes (5 pts) Intoxicated or Sedated No (0 pts) Impaired Gait Yes (1 pt) Mobility Assist Device Used Yes (1 pt) Altered Elimination No (0 pt) Score/Fall Risk Level 3 or more points = High Risk Oriented to surroundings, Maintained a safe environment, Educated pt \T\ family on fall prevention, incl call for assistance when getting out of bed, Provided non-skid footwear, Hourly rounding (assess needs \T\ fall precautionary measures) done, Offered frequent toileting (1:1 observation), Utilized family, sitter, or virtual can filling and closing machine tender as indicated. Abuse screen: Denies threats or abuse. Nutritional screening: No deficits noted. Tuberculosis screening: No symptoms or risk factors identified. Vital Signs: 22:45 BP 187 / 66; Pulse 63; Resp 21; Temp 97.7; Pulse Ox 100% ; Weight 62.6 kg; vc1 06/27 00:00 BP 186 / 72; Pulse 67; Resp 18; Pulse Ox 96% ; vc1 ED Course: 06/26 21:54 Patient arrived in ED. rv1 21:54 Mushtaq Holcomb MD is Attending Physician. rt 22:42 Lorenza Santos RN is Primary Nurse. vc1 22:45 Arm band placed on right wrist. vc1 22:45 Patient has correct armband on for positive identification. Bed in low position. Call vc1 light in reach. environmental monitoring technician on. Pulse ox on. NIBP on. 22:45 Provided Education on: fall safety. vc1 22:45 Maintain EMS IV. Dressing intact. Good blood return noted. Site clean \T\ dry. vc1 23:14 Triage completed. vc1 23:15 CT Head C Spine In Process Unspecified. EDMS 23:15 CT Chest Abdomen Pelvis W/O Contrast In Process Unspecified. EDMS 06/27 00:16 No provider procedures requiring assistance completed. IV discontinued, intact, vc1 bleeding controlled, No redness/swelling at site. Pressure dressing applied. Administered Medications: No medications were administered Medication: 00:16 VIS not applicable for this client. vc1 Outcome: 06/26 23:50 Discharge ordered by . rt 06/27 00:17 Discharged to [facility], daughter to take back. Reported to [facility]. vc1 Condition: stable Discharge instructions given to patient, family, Instructed on discharge instructions, follow up and referral plans. Demonstrated understanding of instructions, follow-up care, 00:18 Patient left the ED. vc1 Signatures: Dispatcher [employer] EDPR Lorenza Santos RN RN vc1 Mushtaq Holcomb MD MD rt Margi Emery rv1
--- NOTE | 2024-06-27 00:45 | RAD REPORT ---
EXAM: CT Head and Cervical Spine Without Intravenous Contrast CLINICAL HISTORY: TRAUMA TECHNIQUE: Axial computed tomography images of the head/brain and cervical spine without intravenous contrast. Sagittal and coronal reformatted images were created and reviewed. This CT exam was performed using one or more of the following dose reduction techniques: automated exposure control, adjustmen t of the mA and/or kV according to patient size, and/or use of iterative reconstruction technique. COMPARISON: CT Head Cervical Spine dated 04/28/2024 FINDINGS: Brain: Mild to moderate cerebral atrophy and bilateral periventricular and subcortical white matter low attenuation most compatible with chronic microvascular angiopathy without significant interval change. Remote right basal ganglia lacunar infarct again demonstrated. No hemorrhage. Ventricles: Unremarkable. No ventriculomegaly. Skull: No acute fracture. Sinuses: Unremarkable as visualized. No acute sinusitis. Mastoid air cells: Partial opacification of the right mastoid air cells. Vertebrae: Stable grade 1 anterolisthesis of C4 on C5. No acute fracture or subluxation. Discs/spinal canal/neural foramina: Multilevel degenerative changes most pronounced at C5-C6. Sever e multilevel facet arthropathy. No critical canal stenosis. Soft tissues: Unremarkable. Vasculature: There is atherosclerotic disease of the internal carotid and vertebral arteries bilate rally. IMPRESSION: 1. No acute intracranial or extra-axial abnormality. 2. No acute cervical spine injury. 3. Other findings as above. Electronically signed by: Elvi Felder MD 06/26/2024 11:31 PM CDT RP Due to temporary technical issues with the PACS/[employer] reporting system, reports are being emily d by the in-house radiologist without review as a courtesy to ensure prompt reporting the interpreting radiologist is fully responsible for the content of the report. Transcribed Date/Time: 06/27/2024 12:45 AM
--- NOTE | 2024-06-27 00:45 | RAD REPORT ---
EXAM DESCRIPTION: CT CHEST ABDOMEN PELVIS WITHOUT IV CONTRAST CLINICAL HISTORY: Trauma; vomiting. COMPARISON: XR Chest 07/07/2023; XR Pelvis 04/09/2021 (report only) TECHNIQUE: Contiguous axial images of the chest, abdomen and pelvis were obtained followed by reconstruction geoff ges. This exam was performed according to our departmental dose-optimization program, which includes automated exposure control, adjustment of the mA and/or kV according to patient size and/or use of iterative reconstruction technique. FINDINGS: There is atherosclerosis. There are diverticuli without CT evidence of acute diverticulitis. Linear o pacities within the lungs may represent scar versus subsegmental atelectasis. Calcifications within the dependent portion of the gallbladder compatible with gallstones. The gallbladder is otherwise unr emarkable by CT criteria. There is evidence of prior lumbar fusion. Small renal cysts, no follow-up recommended. Appendix was not visualized. There is scoliosis of the thoracolumbar spine. Vertebral megan dy height is preserved without evidence of acute fracture. The aorta is of normal contour and tapering. There is no pericardial or pleural fluid collection. The re is no parenchymal consolidation or pneumothorax. The liver, spleen, pancreas and kidneys are within normal limits. There is no hydronephrosis or renal stones. Aorta is of normal caliber and tapering. There is no free fluid in the abdomen or pelvis. There is no bowel obstruction. There is no stranding of the mesenteric fat to suggest an inflammatory response. IMPRESSION: 1. No acute intrathoracic or intra-abdominal abnormality. 2. Cholelithiasis. The gallbladder is otherwise unremarkable by CT criteria. Electronically signed by: Rubio Romo MD 06/26/2024 11:45 PM CDT Due to temporary technical issues with the PACS/[employer] reporting system, reports are being emily d by the in-house radiologist without review as a courtesy to ensure prompt reporting the interpreting radiologist is fully responsible for the content of the report. Transcribed Date/Time: 06/27/2024 12:44 AM
[2024-06-27 01:11] VITALS: TEMP 97.7
[2024-06-27 01:12] VITALS: BP 186/72; O2SAT 96
--- NOTE | 2024-06-27 10:57 | EKG ---
Test Date: 2024-06-26 Test Time: 22:35:[address]: LETY MEASUREMENT RESULTS: Intervals: Rate: 62 RI: 160 QRSD: 108 QT: 460 QTc: 466 [place]: P: 84 RI: 160 QRS: -46 T: 84 INTERPRETIVE STATEMENTS: Normal sinus rhythm with sinus arrhythmia Left anterior fascicular block Nonspecific ST and T wave abnormality Abnormal ECG Compared to ECG 07/06/2023 23:33:50 Left anterior fascicular block now present ST (T wave) deviation now present Sinus bradycardia no longer present Left-axis deviation no longer present Left ventricular hypertrophy no longer present Electronically Signed On 06-27-24 10:55:59 CDT by Duke Abdalla
== END 2024-06-27 00:18 | disposition home or self-care (01) ==
LOC: ER 21:50
DX: Z04.1 Encounter for examination and observation following transport accident (principal); W18.30XA Fall on same level, unspecified, initial encounter; Y92.129 Unspecified place in nursing home as the place of occurrence of the external cause
CPT/HCPCS: 36415; 70450; 71250; 72125; 74176; 80048; 80076; 83690; 84484; 85025; 93005; 99284